=== PATIENT | male | born 1940 | race Caucasian/White ===

== ENCOUNTER → 2017-10-10 14:10 | Outpatient (CLI) | payer MEDICARE, OTHER, SELFPAY ==
--- NOTE | 2017-10-10 | PATH_ITS ---
Note [facility] Accession Number: [id number] TESTS RESULT FLAG UNITS REF RANGE LAB Clinician Provided Cytology Information No. of containers..01 ThinPrep Vial No. of containers..00 Previously Prepared Cytology Slide LEFT INFERIOR THYROI DIAGNOSIS: 02 LEFT INFERIOR THYROI NEGATIVE FOR MALIGNANT CELLS. IBBENIGN FOLLICULAR CELLS PRESENT. Pathologist ICD10: 02 E04.1 02 Satinder Mejia MD, Pathologist NPI- [id number] Jennifer Montgomery, [employer] ([facility]) 01 30 CC, PINK, CLEAR RECEIVED: 5 ALCOHOL FIXED AND 5 QUICK STAINED SLIDES. /VDU FLAG LEGEND: L-Low Normal,H-High Normal,LL-Alert Low,HH-Alert High <-Panic Low,>-Panic High,A-Abnormal,AA-Critical Abnormal Performed at: 01 =Z [facility] [address], [place] [address] Eriberto iNna MD, 02 [facility] [address] [place] [phone] Toby Gaytan MD, A duplicate report has been generated due to demographic updates. Performed at: 01 [facility] [address], [place], [place] [id number] MD Eriberto Nina MD Phone: [phone]
--- NOTE | 2017-10-10 | DI.US.S_ITS ---
PROCEDURE: US FINE NEEDLE ASPIRATION INDICATIONS: LT THYROID NODULE MID TECHNIQUE: The indications, alternatives, benefits, risks, and complications of the procedure were explained to the patient. Written informed consent was obtained and placed in the chart. The thyroid region was examined sonographically and a site was chosen for ultrasound guided percutaneous sampling. The skin was prepared and draped in the usual fashion, and anesthetized with 1% lidocaine infiltrated from the skin down to the thyroid gland. Multiple passes were then performed, with contents emptied into an appropriate pathology specimen container. A bandage was applied to the area of access at completion of the study. COMPARISON: None. FINDINGS: Location(s) of lesion(s) sampled: Nodule 13 mm mid left lobe [place]: 25 gauge hypodermic needles. Number of passes: Multiple, more than 10 counting repeats Medications: 1% lidocaine for local anaesthesia. Complications: None. IMPRESSION: Successful ultrasound-guided thyroid nodule fine needle aspiration, with cytology results pending. Please see chart below for management recommendations based on cytology results. [place] [facility] ReportingRecommendationsNon-diagnostic* Repeat US-guided FNA, with on-site cytology evaluation if possible. * Repeated non-diagnostic nodules without high suspicion US features: close observation vs surgical consult. * Consider surgery if nodule has high suspicion US features, grows >20% in 2 dimensions on followup, or patient has clinical risk factors for malignancy. Benign* If nodule has high suspicion US features: repeat US and FNA within 12 months. * If nodule has low to intermediate suspicion US features: repeat US at 12-24 months. If nodule grows (20% increase in at least 2 dimensions, with minimal increase of 2 mm or >50% change in volume), or development of new suspicious US features, then repeat FNA or continue followup. * If nodule has very low suspicion US features: followup US at >24 months. Atypia of undetermined significance, follicular lesion of undetermined significanceRepeat FNA, molecular testing, followup US, or surgical consult.Follicular neoplasm, suspicious for follicular neoplasmSurgical consult; also consider molecular testing. Suspicious for malignancySurgical consult.MalignantSurgical consult. Dictated by: Paulino Bernardo M.D. on 10/10/2017 at 16:46 Approved by: Paulino Bernardo M.D. on 10/10/2017 at 16:48
--- NOTE | 2017-10-10 | DI.US.S_ITS ---
PROCEDURE: US FINE NEEDLE ASPIRATION INDICATIONS: LEFT THYROID NODULE INFERIOR TECHNIQUE: The indications, alternatives, benefits, risks, and complications of the procedure were explained to the patient. Written informed consent was obtained and placed in the chart. The thyroid region was examined sonographically and a site was chosen for ultrasound guided percutaneous sampling. The skin was prepared and draped in the usual fashion, and anesthetized with 1% lidocaine infiltrated from the skin down to the thyroid gland. Multiple passes were then performed, with contents emptied into an appropriate pathology specimen container. A bandage was applied to the area of access at completion of the study. COMPARISON: None. FINDINGS: Location(s) of lesion(s) sampled: Nodule 13 mm left inferior pole [place]: 25 gauge hypodermic needles. Number of passes: 6 Medications: 1% lidocaine for local anaesthesia. Complications: None. IMPRESSION: Successful ultrasound-guided thyroid nodule fine needle aspiration, with cytology results pending. Please see chart below for management recommendations based on cytology results. [place] System ReportingRecommendationsNon-diagnostic* Repeat US-guided FNA, with on-site cytology evaluation if possible. * Repeated non-diagnostic nodules without high suspicion US features: close observation vs surgical consult. * Consider surgery if nodule has high suspicion US features, grows >20% in 2 dimensions on followup, or patient has clinical risk factors for malignancy. Benign* If nodule has high suspicion US features: repeat US and FNA within 12 months. * If nodule has low to intermediate suspicion US features: repeat US at 12-24 months. If nodule grows (20% increase in at least 2 dimensions, with minimal increase of 2 mm or >50% change in volume), or development of new suspicious US features, then repeat FNA or continue followup. * If nodule has very low suspicion US features: followup US at >24 months. Atypia of undetermined significance, follicular lesion of undetermined significanceRepeat FNA, molecular testing, followup US, or surgical consult.Follicular neoplasm, suspicious for follicular neoplasmSurgical consult; also consider molecular testing. Suspicious for malignancySurgical consult.MalignantSurgical consult. Dictated by: Paulino Bernardo M.D. on 10/10/2017 at 16:48 Approved by: Paulino Bernardo M.D. on 10/10/2017 at 16:48
== END ==
PROVIDERS: Family Provider Internal Medicine Cardiovascular Disease; PCP Internal Medicine; Visit Provider Internal Medicine
DX: E04.1 Nontoxic single thyroid nodule (principal)
CPT/HCPCS: 10022; 76942

== ENCOUNTER → 2017-11-03 09:01 | Outpatient (CLI) | payer MEDICARE, OTHER, SELFPAY ==
[2017-11-03 09:57] LABS: Cholesterol 164 mg/dL (140-199); HDL Cholesterol 65 mg/dL (40-60); LDL Cholesterol Calculated 85 mg/dL (<100); Triglycerides 68 mg/dL (35-150)
== END ==
PROVIDERS: Family Provider Internal Medicine Cardiovascular Disease; PCP Internal Medicine; Visit Provider Internal Medicine Cardiovascular Disease
DX: Z13.220 Encounter for screening for lipoid disorders (principal)
CPT/HCPCS: 36415; 80061

== ENCOUNTER → 2018-01-03 12:22 | Outpatient (CLI) | payer MEDICARE, OTHER, SELFPAY ==
[2018-01-03 12:37] LABS: Bacteria Urine None Seen; RBC Urine None Seen (0-5/HPF)
[2018-01-03 14:10] LABS: Appearance Urine UA CLEAR; Bilirubin Urine UA NEGATIVE (NEGATIVE); Color Urine UA YELLOW; Glucose Urine UA NEGATIVE (Normal); Ketones Urine UA NEGATIVE (NEGATIVE); Leukocyte Esterase Urine UA NEGATIVE (NEGATIVE); Nitrite Urine UA Negative (Negative); Occult Blood Urine UA NEGATIVE (Negative); Protein Urine UA NEGATIVE (Negative); Urobilinogen Urine UA 0.2 E.U./dL (0.2); pH Urine UA 6.5 (4.5-8.0)
[2018-01-03 14:20] LABS: WBC Urine 1-5/HPF (0-5/HPF)
== END ==
PROVIDERS: PCP Internal Medicine; Visit Provider Physician Assistant
DX: N40.1 Benign prostatic hyperplasia with lower urinary tract symptoms (principal)
CPT/HCPCS: 81001

== ENCOUNTER 2019-06-03 00:59 | Emergency (ER) | payer MEDICARE, OTHER, SELFPAY ==
--- NOTE | 2019-06-03 01:07 | ED_ITS ---
HPI - General Adult General Chief complaint: Ear Stated complaint: EAR ACHE Time Seen by Provider: 06/03/19 01:07 Source: patient Mode of arrival: Ambulatory Limitations: no limitations History of Present Illness HPI narrative: 78-year-old male here for evaluation left ear pain. Patient states that it has been going on for about the last 24 to 48 hours. Tried some ibuprofen which earlier today was helping but now it is not. He states that it feels like he needs to pop his ears but is unable to do so. Is on a ohec-lax-qlxoxej oral allergy medication. Has been describing some sinus congestion recently. No fevers. Related Data Home Medications Medication Instructions Recorded Confirmed albuterol sulfate [Ventolin HFA] 1 puff INH #0 04/13/16 05/19/18 budesonide [Pulmicort Flexhaler] 1 puff INH BID #0 04/13/16 05/19/18 cyanocobalamin (vitamin B-12) 500 mcg PO QDAY #0 04/13/16 05/19/18 [Vitamin B-12] fluticasone propionate 1 spray INTRANASAL BID #0 04/13/16 05/19/18 coenzyme Q10 30 mg capsule 30 mg PO DAILY 05/19/18 05/19/18 rosuvastatin PO 05/19/18 05/19/18 vitamins A,C,K-xvow-moeiou 14,320 1 cap PO BID 05/19/18 05/19/18 unit-226 mg-200 unit capsule Allergies Allergy/AdvReac Type Severity Reaction Status Date / Time No Known Allergies Allergy Uncoded 08/31/17 11:46 Review of Systems Constitutional Constitutional: Denies fever(s) ENT Ears, Nose, Mouth, and Throat: Reports sinus pressure and Denies sore throat Comments: Left ear pain Respiratory Respiratory: Denies cough Integumentary/Breasts Skin/Breast: Denies rash Allergic/Immunologic Allergic/Immunologic: Denies urticaria Patient History Medical History (Updated 06/03/19 @ 01:23 by Pino Bonner DO) Acute lymphangitis of right upper extremity (Inactive) Social History Smoking Status: Former smoker Smoking Status: Former smoker (quit 30 years ago) Exam Initial Vital Signs Initial Vital Signs: Vital Signs Temperature 98.0 F 06/03/19 01:10 Pulse Rate 65 06/03/19 01:10 Respiratory Rate 12 06/03/19 01:10 Blood Pressure 116/60 06/03/19 01:10 Pulse Oximetry 97 06/03/19 01:10 Const General: cooperative and comfortable Limitations: mental status not altered HENCO Head: normal to inspection Ears: TM abnormal bulging on the left, dull on the left and with fluid behind the TM on the left; not erythematous Resp Effort & Inspection: normal respiratory effort Skin Lesions: no lesions Rashes: no rashes Neuro General: alert and awake Extrem General: normal to inspection and capillary refill normal Course Orders Ordered: Discontinued Medications Oxymetazoline HCl (Afrin) 2 sprays NASAL NOW ONE Stop: 06/03/19 01:16 Last Admin: 06/03/19 01:18 Dose: 2 sprays Documented by: SCOT Vital Signs Vital signs: Vital Signs - 8 hr 06/03/19 01:10 Temperature 98.0 F Pulse Rate 65 Respiratory Rate 12 Blood Pressure 116/60 Pulse Oximetry 97 Medical Decision Making MDM Narrative Medical decision making narrative: Patient has a bulging non-red left tympanic membrane. Right tympanic membrane unremarkable. He is on an oral allergy medication he was encouraged to continue taking this. No indication for antibiotics. Was given Afrin and instructions on its use. Was given return precautions and follow-up instructions. He expressed understanding and agreem ent plan. Discharge Plan Departure Patient Disposition: Home Clinical Impression: Otitis media Qualifiers: Otitis media type: serous Chronicity: acute Laterality: left Recurrence: not specified as recurrent Qualified Code(s): H65.02 - Acute serous otitis media, left ear Instructions: Antihistamine/Decongestant (By mouth) Activity Restrictions/Additional Instructions: You can use 2-3 sprays of the Afrin nasal spray a that you were given in the emergency department every 12 hours for the next 3 days as needed. Continue with your other allergy medications as directed. Return to the emergency department for any new or worsening symptoms Prescriptions: No Action vitamins A,C,Y-bpfz-nmzycz [PreserVision AREDS] 14,320-226-200 zepn-gu-nape capsule 1 cap PO BID RF: 0 coenzyme Q10 [CoQ-10] 30 mg capsule 30 mg PO DAILY RF: 0 rosuvastatin PO RF: 0 albuterol sulfate [Ventolin HFA] 90 MCG/PUFF HFA aerosol inhaler 1 puff INH Qty: 0 RF: 0 fluticasone propionate 16 GM spray,suspension 1 spray Intranasal BID Qty: 0 RF: 0 budesonide [Pulmicort Flexhaler] 180 MCG aerosol powdr breath activated 1 puff INH BID Qty: 0 RF: 0 cyanocobalamin (vitamin B-12) [Vitamin B-12] 500 MCG tablet 500 mcg PO QDAY Qty: 0 RF: 0 Referrals: Donnell Mascorro MD [Primary Care Provider] -
[2019-06-03 01:10] VITALS: BP 116/60; PULSE 65; RESP 12; TEMP 36.7; O2SAT 97; BMI 20.9
[2019-06-03] MEDS: OXYMETAZOLINE NASAL SPRAY 30 ML 2 SPRAYS NASAL (01:18)
== END 2019-06-03 01:29 | disposition home or self-care (01) ==
PROVIDERS: Emergency Provider Emergency Medicine; PCP Internal Medicine
DX: H65.02 Acute serous otitis media, left ear (principal)
CPT/HCPCS: 99281; 99282

== ENCOUNTER → 2020-03-14 21:19 | Outpatient (ROUT) | payer MEDICARE, OTHER, SELFPAY ==
[2020-03-14 22:36] LABS: Aspartate Aminotransferase 33 IU/L (17-59); BUN Creatinine Ratio 20.7 (6-22); Blood Urea Nitrogen 18 mg/dL (9-20); Calcium 9.4 mg/dL (8.4-10.2); Carbon Dioxide 30 mmol/L (22-32); Chloride 101 mmol/L (98-107); Cholesterol 195 mg/dL (140-199); Estimated Glomerular Filt Rate > 60.0 mL/min (>60); Glucose 92 mg/dL (80-110); HDL Cholesterol 72 mg/dL (40-60); HEMOLYSIS < 15 (0-50); LDL Cholesterol Calculated 111 mg/dL (<100); Potassium 3.9 mmol/L (3.4-5.1); Sodium 136 mmol/L (137-145); Triglycerides 58 mg/dL (35-150)
== END ==
PROVIDERS: PCP Internal Medicine; Visit Provider Internal Medicine
DX: E78.2 Mixed hyperlipidemia (principal); N40.0 Benign prostatic hyperplasia without lower urinary tract symptoms
CPT/HCPCS: 80048; 80061; 84450

== ENCOUNTER 2021-01-16 17:30 | Emergency (ER) | payer MEDICARE, OTHER, SELFPAY ==
[2021-01-16 18:11] VITALS: BP 145/75; PULSE 65; RESP 16; TEMP 36.6; O2SAT 97; BMI 20.9
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
[2021-01-16] MEDS: TET,DIPH,PERTUSS(ACELL),VAC/PF 0.5 ML SYRINGE IM (20:07)
[2021-01-16 20:23] VITALS: BP 120/70; PULSE 64; RESP 18; O2SAT 98
--- NOTE | 2021-01-16 20:24 | PC.NURSE ---
telfa and kerlix dressing applied to right hand lac site well approximated with steri strips
== END 2021-01-16 20:30 | disposition home or self-care (01) ==
PROVIDERS: Emergency Provider Physician Assistant; PCP Internal Medicine
DX: S61.411A Laceration without foreign body of right hand, initial encounter (principal); W26.8XXA Contact with other sharp object(s), not elsewhere classified, initial encounter; Z23 Encounter for immunization
CPT/HCPCS: 90471; 99283; 90715

== ENCOUNTER 2021-02-27 11:03 | Emergency (ER) | payer MEDICARE, OTHER, SELFPAY ==
[2021-02-27 11:27] VITALS: BP 147/71; PULSE 70; RESP 14; TEMP 36.7; O2SAT 99; BMI 21.7
--- NOTE | 2021-02-27 11:34 | DI.RAD.S_ITS ---
PROCEDURE: XR CHEST 1V INDICATIONS: Chest pain TECHNIQUE: One view of the chest was acquired. COMPARISON: None. FINDINGS: Surgical changes and devices: None. Lungs and pleura: Lungs are clear. No pleural effusions or pneumothorax. Mediastinum: Mediastinal contours appear normal. Heart size is normal. Bones and chest wall: No suspicious bony lesions. Overlying soft tissues appear unremarkable. IMPRESSION: No acute cardiopulmonary process demonstrated radiographically. Dictated by: Satish Lau M.D. on 02/27/2021 at 12:32 Approved by: Satish Lau M.D. on 02/27/2021 at 12:34
--- NOTE | 2021-02-27 11:40 | DI.CT.S_ITS ---
PROCEDURE: CT HEAD/BRAIN WO CON INDICATIONS: syncope, currently neuro intact. TECHNIQUE: Noncontrast 4.5 mm thick angled axial sections acquired from the foramen magnum to the vertex, with coronal and sagittal reformats. For radiation dose reduction, the following was used: automated exposure control, adjustment of mA and/or kV according to patient size. COMPARISON: [facility], CT, HEAD WITHOUT CONTRAST, 07/23/2017, 5:22. FINDINGS: Image quality: Excellent. CSF spaces: Basal cisterns are patent. No extra-axial fluid collections. The ventricles are symmetric in size and shape. Brain: No intracranial hemorrhage or masses. Cerebral volume loss for age, with resultant ventricular and sulcal prominence. There are periventricular and deep white matter chronic small vessel ischemic changes. There is intracranial internal carotid artery atherosclerosis. Skull and face: Calvarium and visualized facial bones appear intact, without suspicious lesions. Sinuses: Air-fluid level in the left frontal and maxillary sinuses. Near-complete opacification of the ethmoid air cells. Deficiency of the medial maxillary sinus wall, likely reflecting prior sinus surgery. IMPRESSION: No acute intracranial abnormality. Dictated by: Gerald Hadley M.D. on 02/27/2021 at 12:20 Approved by: Gerald Hadley M.D. on 02/27/2021 at 12:23
[2021-02-27 12:02] LABS: Add Manual Diff / Slide Review NO; Basophils Absolute Auto 0 /uL (0-100); Basophils Percent Auto 0.5 % (0-2); Eosinophils Absolute Auto 100 /uL (0-450); Eosinophils Percent Auto 1.6 % (2-4); Hematocrit 41.3 % (41-53); Hemoglobin 13.7 g/dL (13.5-17.5); Lymphocytes Absolute Auto 700 /uL (1100-4500); Lymphocytes Percent Auto 9.7 % (25-40); Mean Corpuscular HGB Conc 33.1 % (30-36); Mean Corpuscular Hemoglobin 30.2 PG (26-34); Mean Corpuscular Volume 91.3 fL (80-100); Monocytes Absolute Auto 900 /uL (0-900); Monocytes Percent Auto 11.7 % (3-14); Neutrophils Absolute Auto 5800 /uL (1500-7000); Neutrophils Percent Auto 76.5 % (50-75); Platelet Count 281 X10^3/uL (150-400); Red Blood Cell Count 4.53 X10^6/uL (4.5-5.9); Red Cell Distribution Width 13.8 % (11.6-14.8); White Blood Cell Count 7.5 X10^3/uL (4.5-11.0)
[2021-02-27 12:16] LABS: Alanine Aminotransferase 28 IU/L (<50); Albumin 4.3 g/dL (3.5-5.0); Albumin Globulin Ratio 1.6 (1.0-2.8); Alkaline Phosphatase 80 U/L (38-126); Aspartate Aminotransferase 30 IU/L (17-59); Blood Urea Nitrogen 15 mg/dL (9-20); Calcium 9.9 mg/dL (8.4-10.2); Carbon Dioxide 28 mmol/L (22-32); Chloride 104 mmol/L (98-107); Creatine Kinase 214 U/L (55-170); Estimated Glomerular Filt Rate > 60.0 mL/min (>60); Globulin 2.7 g/dL (1.7-4.1); Glucose 109 mg/dL (80-110); HEMOLYSIS < 15 (0-50); Lipase 67 U/L (23-300); Magnesium 2.1 mg/dL (1.6-2.3); Potassium 4.1 mmol/L (3.4-5.1); Sodium 137 mmol/L (137-145)
[2021-02-27 12:27] LABS: Troponin I < 0.012 ng/mL (0.01-0.034)
[2021-02-27 12:31] LABS: CKMB % Relative Index 1.3 % (1.5-5.0); Creatine Kinase MB 2.69 ng/mL (<2.37)
--- NOTE | 2021-02-27 12:38 | ED.SYNCOPE ---
HPI - Syncope General Chief Complaint: Syncope Stated Complaint: faceplant this morning Time Seen by Provider: 02/27/21 12:30 Source: patient Mode of arrival: Ambulatory Limitations: no limitations History of Present Illness HPI narrative: This is an 80-year-old male who comes emergency department after having a fall and loss of consciousness. Patient's fall was witnessed. He was walking with a friend that he walks with regularly at the loop in [facility]. Patient states it felt like his feet he just can not keep up with them they would go faster and faster. He does have a history of neuropathy he has occasionally had issues like this but not persistently. Patient does not recall falling. He did recall feeling unwell her earlier today. He states he was told that he discussed going faster could keep up with his feet and fell down onto his hands and knees and striking his face with his glasses on. Patient is unsure if he had a loss of consciousness but he does not recall the fall. He has a gap of time possibly 15-30 minutes where he does not recall his friend assisting him up, taking him home are helping him get in the front door. The patient was able to find keep the keep it in the garden and access the house. His met him at home immediately thereafter and she states he did not seem confused at that time but did recall events and has otherwise seemed himself. She states that he ambulated at home I did not notice any new weakness or other changes. Patient denies headache. He does note that 1 of his crowns popped off and he has some abrasions. He had some bleeding from the left side of his nose. He has abrasions on both palms of his hands and knees. He denies headache, chest pain or shortness of breath. He denies any neck or back pain. No new numbness, tingling or weakness. He does state he has chronic neuropathy in his lower feet which is unchanged. Patient denies any urinary bowel or bladder incontinence. He has not had any if issues with speech. He takes a multivitamin, allergy pill he uses budesonide intranasally as well as Pulmicort inhaler. He is not on any anticoagulation or thinners. He has had 1 prior episode of syncope after being on a BPH medication which was stopped. He has had a TURP several years ago and spinal surgery in the . He quit using cigars in the . Drinks 1-3 alcoholic drinks daily. No illicit. No known allergies to medications. Patient lives independently with his at home. He does not usually use a walker or cane. Related Data Home Medications Medication Instructions Recorded Confirmed albuterol sulfate 90 mcg/actuation 1 puff INH #0 04/13/16 05/19/18 aerosol inhaler (Ventolin HFA) budesonide 180 mcg/actuation 1 puff INH BID #0 04/13/16 05/19/18 breath activated powder inhaler (Pulmicort Flexhaler) cyanocobalamin (vitamin B-12) 500 500 mcg PO QDAY #0 04/13/16 05/19/18 mcg tablet (Vitamin B-12) fluticasone propionate 50 1 spray INTRANASAL BID #0 04/13/16 05/19/18 mcg/actuation nasal spray,suspension coenzyme Q10 30 mg capsule (CoQ-10) 30 mg PO DAILY 05/19/18 05/19/18 rosuvastatin [Crestor] PO 05/19/18 05/19/18 vitamins A,C,Q-xxlh-cwvxqy 14,320 1 cap PO BID 05/19/18 05/19/18 unit-226 mg-200 unit capsule (PreserVision AREDS) Allergies Allergy/AdvReac Type Severity Reaction Status Date / Time No Known Allergies Allergy Uncoded 08/31/17 11:46 Review of Systems Review of Systems ROS Unobtainable: All systems reviewed & are unremarkable except as noted in HPI and below Patient History Medical History Acute lymphangitis of right upper extremity Social History Smoking Status: Former smoker Smoking Status: Former smoker alcohol intake frequency: 0-2 drinks per day Alcohol type: hard liquor Substance Use Type: does not use Exam Narrative Exam Narrative: GEN: Patient appears in mild distress. HEAD: No evidence of trauma, no raccoon/Mcdonald sign. NECK: Nontender, painless range of motion, trachea midline Negative Nexus criteria, there is no line tenderness, distracting injury, altered mental status, neuro deficit, recent EtOH. EYES: PERRLA, EOMI ENT: Patient has some dried blood at the left Seym[place], he has an abrasion of the left upper lip as well as abrasion on the inner lip but without gap inch, patient's tooth #__ crown is missing but the base tooth is intact, TM's are normal no hemotypanum, Nares right seymour is clear, nose is midline, no septal hematoma, no dental or oral injury, airway is normal and with normal occlusion, No bony tenderness RESP: Chest is nontender and has symmetric movement, no ecchymosis, breath sounds are normal no crackles, wheezes or rales CVS: Heart sounds are normal, no murmur noted, No JVD. ABG/GI: Nontender, soft, normal bowel sounds, no distention, no organomegaly, pelvic rock is negative NEURO: Oriented AOx3, neuro is grossly intact, sensation and motor is normal all 4 extremities moving, cranial nerves II through XII are intact, GCS is 15 PSYCH: Normal mood and affect SKIN: Patient has abrasions bilateral knees and palms of the hands. The right hand particularly has a larger stellate skin flap that is 1cm in size, otherwise skin is dry, no crepitus and without decubitus BACK: No CVA tenderness, no vertebral tenderness, no step-off's, no crepitus EXT: Atraumatic other than above, hips are nontender, no pedal edema, normal color and temperature, normal range of motion of extremities with normal tendon exam, 2+ pulses in all four extremities Initial Vital Signs Initial Vital Signs: Vital Signs Temperature 98.0 F 02/27/21 11:27 Pulse Rate 70 02/27/21 11:27 Respiratory Rate 14 02/27/21 11:27 Blood Pressure 147/71 H 02/27/21 11:27 Pulse Oximetry 99 02/27/21 11:27 Scores GCS Kamille coma scale eye opening: Spontaneous [place] coma scale verbal response: Orientated [place] coma scale motor response: Obey commands [place] coma scale total score: 15 Course Orders Ordered: ED Orders 02/27/21 11:34 XR chest 1V Stat EKG-12 Lead Stat 02/27/21 11:40 CT head/brain wo con Stat 02/27/21 11:50 Complete Blood Count AUTO DIFF Stat Comprehensive Metabolic Panel Stat Lipase Stat Magnesium Stat Troponin & CK Cardiac Panel Stat Vital Signs Vital signs: Vital Signs - 8 hr 02/27/21 12:54 02/27/21 13:00 02/27/21 13:18 Pulse Rate 72 77 Respiratory Rate 22 22 Blood Pressure 140/69 Pulse Oximetry 97 97 99 MDM - Syncope Lab Data Result diagrams: 02/27/21 11:50 02/27/21 11:50 Labs: Lab Results 02/27/21 02/27/21 Range/Units 11:50 11:50 WBC 7.5 (4.5-11.0) X10^3/uL RBC 4.53 (4.5-5.9) X10^6/uL Hgb 13.7 (13.5-17.5) g/dL Hct 41.3 (41-53) % MCV 91.3 (80-100) fL MCH 30.2 (26-34) PG MCHC 33.1 (30-36) % RDW 13.8 (11.6-14.8) % Plt Count 281 (150-400) X10^3/uL Neut % (Auto) 76.5 H (50-75) % Lymph % (Auto) 9.7 L (25-40) % [place] % (Auto) 11.7 (3-14) % Eos % (Auto) 1.6 L (2-4) % Baso % (Auto) 0.5 (0-2) % Neut # (Auto) 5800 (3067-7769) /uL Lymph # (Auto) 700 L (2966-6813) /uL [place] # (Auto) 900 (0-900) /uL Eos # (Auto) 100 (0-450) /uL Baso # (Auto) 0 (0-100) /uL Sodium 137 (137-145) mmol/L Potassium 4.1 (3.4-5.1) mmol/L Chloride 104 (98-107) mmol/L Carbon Dioxide 28 (22-32) mmol/L BUN 15 (9-20) mg/dL Creatinine 0.94 (0.66-1.25) mg/dL Estimated GFR > 60.0 (>60) mL/min BUN/Creatinine Ratio 16.0 (6-22) Glucose 109 (80-110) mg/dL Calcium 9.9 (8.4-10.2) mg/dL Magnesium 2.1 (1.6-2.3) mg/dL Total Bilirubin 1.0 (0.2-1.3) mg/dL AST 30 (17-59) IU/L ALT 28 (<50) IU/L Alkaline Phosphatase 80 (38-126) U/L Total Creatine Kinase 214 H (55-170) U/L CK-MB (CK-2) 2.69 H (<2.37) ng/mL CK-MB (CK-2) Rel Index 1.3 L (1.5-5.0) % Troponin I < 0.012 (0.01-0.034) ng/mL Total Protein 7.0 (6.3-8.2) g/dL Albumin 4.3 (3.5-5.0) g/dL Globulin 2.7 (1.7-4.1) g/dL Albumin/Globulin Ratio 1.6 (1.0-2.8) Lipase 67 (23-300) U/L Imaging Data CT scan - head: Radiologist's Impression: [address] [address] [address] Scan Report Signed Patient: Rubén Denis MR#: [id number] : 1940 Acct:[id number] Age/Sex: 80 / M Date of Service: 02/27/21 Loc: ED Accession Number: [id number] ?? Procedure: CT head/brain wo con Ordering Provider: Mandy Archer D.O. PROCEDURE:? CT HEAD/BRAIN WO CON ? INDICATIONS:? syncope, currently neuro intact. ? TECHNIQUE:? Noncontrast 4.5 mm thick angled axial sections acquired from the foramen magnum to the vertex, with coronal and sagittal reformats.? For radiation dose reduction, the following was used:? automated exposure control, adjustment of mA and/or kV according to patient size.? ? COMPARISON:? [facility], CT, HEAD WITHOUT CONTRAST, 07/23/2017, 5:22. ? FINDINGS:? Image quality:? Excellent.? ? CSF spaces:? Basal cisterns are patent.? No extra-axial fluid collections.? The ventricles are symmetric in size and shape.? ? Brain:? No intracranial hemorrhage or masses.? Cerebral volume loss for age, with resultant ventricular and sulcal prominence.? There are periventricular and deep white matter chronic small vessel ischemic changes.? There is intracranial internal carotid artery atherosclerosis.? ? Skull and face:? Calvarium and visualized facial bones appear intact, without suspicious lesions.? ? Sinuses:? Air-fluid level in the left frontal and maxillary sinuses.? Near-complete opacification of the ethmoid air cells.? Deficiency of the medial maxillary sinus wall, likely reflecting prior sinus surgery. ? IMPRESSION:? No acute intracranial abnormality. ? ? Dictated by: Geradl Hadley M.D. on 02/27/2021 at 12:20 ? ? Approved by: Gerald Hadley M.D. on 02/27/2021 at 12:23? Chest x-ray: Radiologist's Impression: [address] [address] XRay Report Signed Patient: Rubén Denis MR#: [id number] : 1940 Acct:[id number] Age/Sex: 80 / M Date of Service: 02/27/21 Loc: ED Accession Number: [id number] ?? Procedure: XR chest 1V Ordering Provider: Mandy Archer D.O. PROCEDURE:? XR CHEST 1V ? INDICATIONS:? Chest pain ? TECHNIQUE:? One view of the chest was acquired.? ? COMPARISON:? None. ? FINDINGS:? ? Surgical changes and devices:? None.? ? Lungs and pleura:? Lungs are clear.? No pleural effusions or pneumothorax.? ? Mediastinum:? Mediastinal contours appear normal.? Heart size is normal.? ? Bones and chest wall:? No suspicious bony lesions.? Overlying soft tissues appear unremarkable.? ? IMPRESSION:? No acute cardiopulmonary process demonstrated radiographically. ? ? Dictated by: Satish Lau M.D. on 02/27/2021 at 12:32 ? ? Approved by: Satish Lau M.D. on 02/27/2021 at 12:34?? ECG Data Attestation: I personally reviewed and interpreted this ECG as follows: Prior ECG tracings: available for review Interpretation: Sinus rhythm rate 82 ID 180 QRS of 102 and QTC 436. No acute ST changes appreciated. Patient has prior EKG from 07/23/2017 which does not show any acute changes. MDM Narrative Medical decision making narrative: This is an 80-year-old male with suspected concussion after a fall that was witnessed. There was no described syncope, or changes that are obvious with cardiac arrhythmia or other cause. Patient's labs are otherwise reassuring. Head CT is negative, patient is several hours out from his initial injury with improved and normalized mentation. He did have a window or loss of times and did not recall episode but his states he was normal and at his baseline home with her he does not appear to have any cardiac arrhythmias or abnormalities, patient does have some minor facial injuries but no bony tenderness that would warrant CT facial bones. Return precautions were discussed. Discharge Plan Departure Patient Disposition: Home Clinical Impression: Abrasion of both knees Concussion Qualifiers: Encounter type: initial encounter Loss of consciousness presence/duration: with LOC of 30 min or less Qualified Code(s): S06.0X1A - Concussion with loss of consciousness of 30 minutes or less, initial encounter Dental injury Qualifiers: Encounter type: initial encounter Qualified Code(s): S09.93XA - Unspecified injury of face, initial encounter Abrasion of face Qualifiers: Encounter type: initial encounter Qualified Code(s): S00.81XA - Abrasion of other part of head, initial encounter Abrasion of palm Qualifiers: Encounter type: initial encounter Laterality: unspecified laterality Qualified Code(s): S60.519A - Abrasion of unspecified hand, initial encounter Instructions: DI for Concussion Activity Restrictions/Additional Instructions: You appear to have a concussion today from your fall. I would discuss with your physician about PT and if you continue to have similar episodes while walking possibly evaluation by neurology for your neuropathy and gait changes. You may continue home medications as prescribed. You may take Tylenol up to a 1000 mg every 8 hours as needed for pain. For your tooth that is missing should be followed up with a dentist. If you have dental insurance contact the number on your card to find a local provider. Wound Care: Keep wound(s) clean and dry. Wash daily with soap and water only. Do not use over the counter products (alcohol or peroxide)on the wounds unless instructed by a physician. You can use triple antibiotic ointment to the affected areas twice daily. Return if fever greater than 100.4 Fahrenheit, increased swelling, increasing pain or worsening symptoms such as increased discharge or spreading redness. Please return for new headaches, altered mental status, new or different confusion, new neck or back pain, recurrent syncope, falling or passing out, persistent vomiting, new numbness, tingling or weakness, difficulty with ambulation or movement of her extremities, loss of bowel or bladder control or other new or concerning symptoms. Prescriptions: No Action vitamins A,C,V-nyyb-lmdbnj [PreserVision AREDS] 14,320-226-200 tvyb-rq-lkkv capsule 1 cap PO BID RF: 0 coenzyme Q10 [CoQ-10] 30 mg capsule 30 mg PO DAILY RF: 0 rosuvastatin PO RF: 0 albuterol sulfate [Ventolin HFA] 90 MCG/PUFF HFA aerosol inhaler 1 puff INH Qty: 0 RF: 0 fluticasone propionate 16 GM spray,suspension 1 spray Intranasal BID Qty: 0 RF: 0 budesonide [Pulmicort Flexhaler] 180 MCG aerosol powdr breath activated 1 puff INH BID Qty: 0 RF: 0 cyanocobalamin (vitamin B-12) [Vitamin B-12] 500 MCG tablet 500 mcg PO QDAY Qty: 0 RF: 0 Referrals: Donnell Mascorro MD [Primary Care Provider] -
--- NOTE | 2021-02-27 12:48 | PC.NURSE ---
Pt reports out walking at [employer] and legs feeling like they were heavy. I tried to move them faster and then fell forward. Denies dizziness/nausea. Had post fall confusion. Hit face, hands and knees. Knocked out a tooth as well. Friends brought pt home and then brought pt to ED. Abrasion to left palm/hand. Deeper abrasion on right palm. Lip/chin abrasions. Bilateral knee abrasions, cleaned/LASHANDA.
[2021-02-27 12:54] VITALS: PULSE 72; RESP 22; O2SAT 97
[2021-02-27 13:00] VITALS: PULSE 77; RESP 22; O2SAT 97
[2021-02-27 13:18] VITALS: BP 140/69; O2SAT 99
== END 2021-02-27 13:46 | disposition home or self-care (01) ==
PROVIDERS: Emergency Provider Emergency Medicine; PCP Internal Medicine
DX: S06.0X1A Concussion with loss of consciousness of 30 minutes or less, initial encounter (principal); S09.93XA Unspecified injury of face, initial encounter; S00.81XA Abrasion of other part of head, initial encounter; S80.212A Abrasion, left knee, initial encounter; S80.211A Abrasion, right knee, initial encounter; S60.512A Abrasion of left hand, initial encounter; S60.511A Abrasion of right hand, initial encounter; R07.9 Chest pain, unspecified; W19.XXXA Unspecified fall, initial encounter
CPT/HCPCS: 36415; 70450; 71045; 80053; 82550; 82553; 83690; 83735; 84484; 85025; 93005; 99284

== ENCOUNTER 2021-05-13 12:34 | Inpatient (IN) | payer MEDICARE, OTHER, SELFPAY ==
[2021-05-13] VITALS (17 sets, daily range): BP systolic 108–143; BP diastolic 54–90; PULSE 57–102; RESP 11–18; TEMP 36.4–37; O2SAT 93–100; BMI 20.6
--- NOTE | 2021-05-13 13:32 | DI.RAD.S_ITS ---
PROCEDURE: XR ABDOMEN 1V INDICATIONS: abd pain w/ ? constipation w/ diarrhea TECHNIQUE: One view of the abdomen acquired. COMPARISON: None. FINDINGS: Surgical changes and devices: None. Bowel: Moderately to severely distended loop of large bowel within the left upper quadrant which demonstrates an air-fluid level. Soft tissues: No suspicious abdominal calcifications. Visualized solid organ contours appear normal in size. Bones: No suspicious bony lesions. IMPRESSION: Findings suggestive of high-grade colonic obstruction. This could be further assessed with IV and rectal contrast-enhanced CT examination, if clinically indicated. Dictated by: Nasreen Del Rosario M.D. on 05/13/2021 at 14:24 Approved by: Nasreen Del Rosario M.D. on 05/13/2021 at 14:26
[2021-05-13 13:49] LABS: Add Manual Diff / Slide Review NO; Basophils Absolute Auto 0 /uL (0-100); Basophils Percent Auto 0.6 % (0-2); Eosinophils Absolute Auto 100 /uL (0-450); Eosinophils Percent Auto 2.3 % (2-4); Hematocrit 42.7 % (41-53); Hemoglobin 14.4 g/dL (13.5-17.5); Lymphocytes Absolute Auto 900 /uL (1100-4500); Lymphocytes Percent Auto 16.6 % (25-40); Mean Corpuscular HGB Conc 33.8 % (30-36); Mean Corpuscular Hemoglobin 30.4 PG (26-34); Monocytes Absolute Auto 600 /uL (0-900); Monocytes Percent Auto 11.8 % (3-14); Neutrophils Absolute Auto 3700 /uL (1500-7000); Neutrophils Percent Auto 68.7 % (50-75); Platelet Count 284 X10^3/uL (150-400); Red Blood Cell Count 4.75 X10^6/uL (4.5-5.9); Red Cell Distribution Width 14.7 % (11.6-14.8); White Blood Cell Count 5.4 X10^3/uL (4.5-11.0)
--- NOTE | 2021-05-13 13:49 | ED.ABDPAIN ---
HPI - Abdominal Pain <Nolberto Rivas PA-C - Last Filed: 05/14/21 14:46> General Chief Complaint: Abdominal Pain Stated Complaint: Gas distention/nausea/vomiting/no bm since yest. Time Seen by Provider: 05/13/21 13:32 Source: patient Mode of arrival: Ambulatory History of Present Illness HPI narrative: Patient is an 80-year-old male presenting to the emergency department today for evaluation of abdominal pain that began yesterday. Patient reports associated episodes of bloating, nausea, and constipation. Patient explains that he had experienced similar episodes approximately 1 month ago that cleared on their own. He notes that he has a sensation that he needs to pass a bowel movement, but he states he has been unable to and has only been able to pass ?a brown liquid?. Patient states that took Ex-Lax yesterday evening and at midnight last night but has not yet had a bowel movement. He denies fever, chills, chest pain, cough, shortness of breath, dysuria, hematuria, black or tarry stools, hematemesis, or any other concerning symptoms. No other concerns for voiced at this time. Related Data Home Medications Medication Instructions Recorded Confirmed budesonide 180 mcg/actuation 1 puff INH BID #0 04/13/16 05/13/21 breath activated powder inhaler (Pulmicort Flexhaler) cyanocobalamin (vitamin B-12) 500 500 mcg PO QAM #0 04/13/16 05/13/21 mcg tablet (Vitamin B-12) fluticasone propionate 50 1 spray INTRANASAL QAM #0 04/13/16 05/13/21 mcg/actuation nasal spray,suspension coenzyme Q10 30 mg capsule (CoQ-10) 30 mg PO 3XW 05/19/18 05/13/21 vitamins A,C,I-yrlj-opoqws 14,320 1 cap PO BID 05/19/18 05/13/21 unit-226 mg-200 unit capsule (PreserVision AREDS) [id number] 250 1 tab PO BID 05/13/21 05/13/21 mg-40 mg-5 mg-125 unit tablet Allergies Allergy/AdvReac Type Severity Reaction Status Date / Time No Known Drug Allergies Allergy Verified 05/13/21 13:44 Review of Systems <Nolberto Rivas PA-C - Last Filed: 05/14/21 14:46> Constitutional Constitutional: Denies chills, Denies fatigue, Denies fever(s), Denies frequent falls, Denies lethargy and Denies weakness Eyes Eyes: Denies loss of vision ENT Ears, Nose, Mouth, and Throat: Denies dizziness and Denies neck pain Cardiovascular Cardiovascular: Denies chest pain, Denies irregular heart rhythm, Denies lightheadedness, Denies palpitations, Denies dyspnea, Denies dyspnea on exertion and Denies orthopnea Respiratory Respiratory: Denies cough, Denies dyspnea, Denies dyspnea on exertion and Denies wheezing Gastrointestinal Gastrointestinal: Reports abdominal pain (Right lower quadrant, left lower quadrant), Denies melena, Reports bloating, Denies hematochezia, Denies coffee ground emesis, Reports constipation, Reports diarrhea, Reports nausea, Denies vomiting and Denies hematemesis Genitourinary Genitourinary: Denies hematuria, Denies flank pain, Denies urinary incontinence and Denies urinary urgency Musculoskeletal Musculoskeletal: Denies back pain, Denies muscle weakness, Denies neck pain, Denies numbness and Denies tingling Integumentary/Breasts Skin/Breast: Denies pruritus, Denies erythema, Denies rash and Denies wounds Neurologic Neurologic: Denies behavioral changes, Denies confusion, Denies dizziness, Denies frequent falls, Denies loss of vision, Denies numbness, Denies tingling and Denies weakness Psychiatric Psychiatric: Denies behavioral changes and Denies confusion Endocrine Endocrine: Denies fatigue and Denies palpitations Allergic/Immunologic Allergic/Immunologic: Denies wheezing Patient History <Nolberto Rivas PA-C - Last Filed: 05/14/21 14:46> Medical History Acute lymphangitis of right upper extremity Social History household members: spouse Smoking Status: Former smoker Smoking Status: Former smoker alcohol intake frequency: 0-2 drinks per day Alcohol type: hard liquor Substance Use Type: does not use Exam <Nolberto Rivas PA-C - Last Filed: 05/14/21 14:46> Narrative Exam Narrative: GENERAL: 80 year old patient appears stated age. Well-developed patient, in no acute distress. HEAD: Atraumatic. Normocephalic. EYES: Pupils equal round and reactive. Extraocular motions intact. No scleral icterus. No injection or drainage. ENT: Nose without bleeding, purulent drainage. Throat without erythema, tonsillar hypertrophy or exudate. Airway patent. NECK: Trachea midline. Non tender CARDIOVASCULAR: Regular rate and rhythm without murmurs, gallops, or rubs. RESPIRATORY: Clear to auscultation. Breath sounds equal bilaterally. No wheezes, rales, or rhonchi. GASTROINTESTINAL: Abdomen soft, non-tender. Abdomen appears bloated and distended. No masses appreciated. EXTREMITIES: No edema or joint tenderness. BACK: Nontender without deformity or crepitance. No flank tenderness. NEURO: AOx3. SKIN: No rash or erythema of visible areas Initial Vital Signs Initial Vital Signs: Vital Signs Temperature 98.4 F 05/13/21 13:25 Pulse Rate 78 05/13/21 13:25 Respiratory Rate 18 05/13/21 13:25 Blood Pressure 143/90 H 05/13/21 13:25 Pulse Oximetry 97 05/13/21 13:25 <Amber Pfeiffer MD - Last Filed: 05/20/21 07:32> Initial Vital Signs Initial Vital Signs: Vital Signs Temperature 98.4 F 05/13/21 13:25 Pulse Rate 78 05/13/21 13:25 Respiratory Rate 18 05/13/21 13:25 Blood Pressure 143/90 H 05/13/21 13:25 Pulse Oximetry 97 05/13/21 13:25 Course <Nolberto Rivas PA-C - Last Filed: 05/14/21 14:46> Course Course Narrative: CBC, CMP, lipase, EKG, abdominal x-ray ordered. Orders Ordered: Acetaminophen (Acetaminophen 325 Mg Tablet) 650 mg PO Q4HR PRN PRN Reason: Fever/Mild Pain (1-3) Last Admin: 05/16/21 08:56 Dose: 650 mg Documented by: Admin: 05/16/21 01:20 Dose: 650 mg Documented by: Admin: 05/15/21 13:45 Dose: 650 mg Documented by: Admin: 05/15/21 05:46 Dose: 650 mg Documented by: MWEXMAN Al Hydrox/Mg Hydrox/Simethicone (Mag Hydrox/Alum/Simeth 30 Ml Udc) 30 ml PO Q6HR PRN PRN Reason: Dyspepsia Last Admin: 05/19/21 00:05 Dose: 30 ml Documented by: KALYN Albuterol (Albuterol 2.5 Mg/3 Ml Neb (Adult)) 2.5 mg INH [id number] PRN PRN Reason: Shortness Of Breath Last Admin: 05/13/21 20:05 Dose: 2.5 mg Documented by: RADHA Benzocaine/Butamben/Tetracaine HCl (Tetracaine/Benzocaine/Butamben (Cetacaine) Bottle) 1 spray TOP PRN PRN PRN Reason: Sore Throat Last Admin: 05/17/21 11:32 Dose: 1 spray Documented by: WAN Budesonide (Budesonide 0.5 Mg/2 Ml Neb) 0.5 mg INH RTBID PRINCE Last Admin: 05/19/21 20:50 Dose: Not Given Documented by: Admin: 05/19/21 07:40 Dose: 0.5 mg Documented by: Admin: 05/18/21 20:16 Dose: Not Given Documented by: Admin: 05/18/21 06:53 Dose: 0.5 mg Documented by: Admin: 05/17/21 18:54 Dose: 0.5 mg Documented by: Admin: 05/17/21 07:33 Dose: Not Given Documented by: Admin: 05/16/21 19:41 Dose: Not Given Documented by: Admin: 05/16/21 07:54 Dose: 0.5 mg Documented by: Admin: 05/15/21 21:00 Dose: 0.5 mg Documented by: Admin: 05/15/21 08:00 Dose: Not Given Documented by: Admin: 05/14/21 20:00 Dose: Not Given Documented by: Admin: 05/14/21 09:00 Dose: Not Given Documented by: Admin: 05/13/21 20:05 Dose: Not Given Documented by: RADHA Enoxaparin Sodium (Enoxaparin 40 Mg/0.4 Ml Syringe) 40 mg SUBCUT DAILY [facility] Last Admin: 05/19/21 08:43 Dose: 40 mg Documented by: MAINE Heparin Sodium (Porcine) (Heparin Flush (Cl/Picc/Mid-Line) 50 Unit/5 Ml Syringe) 50 unit IV BID [facility] Last Admin: 05/19/21 20:49 Dose: 50 unit Documented by: Admin: 05/19/21 08:41 Dose: Not Given Documented by: Admin: 05/18/21 21:23 Dose: Not Given Documented by: Admin: 05/18/21 18:26 Dose: Not Given Documented by: RICKY Hydromorphone HCl (Hydromorphone 0.5 Mg Inj) 0.5 mg IV Q6H PRN PRN Reason: Pain, Moderate (4-6) Last Admin: 05/15/21 15:56 Dose: 0.5 mg Documented by: Admin: 05/15/21 03:27 Dose: 0.5 mg Documented by: Admin: 05/14/21 17:28 Dose: 0.5 mg Documented by: DEONDRE Multivitamins 10 ml/ Chromium/Copper/Manganese/Seleni/Zn 1 ml/ Potassium Phosphate 15 mmol/ Amino Acids/Electrolytes 2,016 mls @ 62 mls/hr IV CONT [facility] Stop: 05/21/21 17:59 Last Admin: 05/19/21 18:54 Dose: 62 mls/hr Documented by: MAINE Naloxone HCl (Naloxone 0.4 Mg/Ml Vial) 0.2 mg IV Q2MIN PRN PRN Reason: Opiate Reversal Ondansetron HCl (Ondansetron 4 Mg/2 Ml Inj) 4 mg IV Q8HR PRN PRN Reason: Nausea And Vomiting Last Admin: 05/19/21 00:08 Dose: 4 mg Documented by: Admin: 05/18/21 12:06 Dose: 4 mg Documented by: Admin: 05/17/21 19:08 Dose: 4 mg Documented by: Admin: 05/16/21 23:53 Dose: 4 mg Documented by: Admin: 05/16/21 06:27 Dose: 4 mg Documented by: ARISTEO Oxycodone HCl (Oxycodone Ir 5 Mg Tablet) 5 mg PO Q4HR PRN PRN Reason: Pain, Moderate (4-6) Last Admin: 05/15/21 21:22 Dose: 5 mg Documented by: Admin: 05/15/21 13:45 Dose: 5 mg Documented by: Admin: 05/15/21 05:46 Dose: 5 mg Documented by: EVERTON Simethicone (Simethicone 80 Mg Tablet) 80 mg PO QID PRN PRN Reason: Flatulence Last Admin: 05/18/21 13:00 Dose: 80 mg Documented by: Admin: 05/16/21 22:41 Dose: 80 mg Documented by: Admin: 05/16/21 15:24 Dose: 80 mg Documented by: WAN Sodium Chloride (Sodium Chloride 0.9% Flush) 10 ml IV PRN PRN PRN Reason: Flush Sodium Chloride (Sodium Chloride 0.9% Flush) 10 ml IV BID [facility] Last Admin: 05/19/21 20:50 Dose: 10 ml Documented by: Admin: 05/19/21 08:41 Dose: Not Given Documented by: Admin: 05/18/21 21:24 Dose: Not Given Documented by: Admin: 05/18/21 10:47 Dose: Not Given Documented by: Admin: 05/17/21 20:46 Dose: Not Given Documented by: Admin: 05/17/21 11:34 Dose: Not Given Documented by: Admin: 05/16/21 20:57 Dose: 10 ml Documented by: Admin: 05/16/21 08:57 Dose: 10 ml Documented by: YAMILE Tamsulosin HCl (Tamsulosin 0.4 Mg Capsule) 0.4 mg PO DAILY [facility] Last Admin: 05/19/21 14:37 Dose: 0.4 mg Documented by: Admin: 05/19/21 12:34 Dose: Not Given Documented by: Admin: 05/18/21 12:59 Dose: Not Given Documented by: RICKY Discontinued Medications Albuterol (Albuterol 2.5 Mg/3 Ml Neb (Adult)) 2.5 mg INH NOW ONE Stop: 05/13/21 18:34 Last Admin: 05/14/21 01:09 Dose: Not Given Documented by: ANNIE Albuterol (Albuterol 2.5 Mg/3 Ml Neb (Adult)) 2.5 mg INH NOW PRN PRN Reason: Coughing, Wheezing, Dyspnea Albuterol (Albuterol 2.5 Mg/3 Ml Neb (Adult)) 2.5 mg INH NOW ONE Stop: 05/14/21 15:01 Last Admin: 05/14/21 15:00 Dose: Not Given Documented by: DEONDRE Albuterol (Albuterol 2.5 Mg/3 Ml Neb (Adult)) 2.5 mg INH NOW PRN PRN Reason: Coughing, Wheezing, Dyspnea Amino Acids/Electrolytes (Tpn Per Pharmacy) 1 request MISC CONT [facility] Bisacodyl (Bisacodyl 5 Mg Tablet) 10 mg PO NOW ONE Stop: 05/14/21 08:57 Last Admin: 05/14/21 10:19 Dose: 10 mg Documented by: DEONDRE Bupivacaine HCl (Bupivacaine 0.25% (Pf) Vial) 30 ml INJ NOW ONE Stop: 05/14/21 15:48 Last Admin: 05/14/21 15:47 Dose: 30 ml Documented by: TAMIKO Bupivacaine Liposome (Bupivacaine Liposome 266 Mg/20 Ml Vial) 266 mg INJ NOW ONE Stop: 05/14/21 15:30 Last Admin: 05/14/21 15:29 Dose: 266 mg Documented by: TAMIKO Fentanyl (Fentanyl 100 Mcg/2 Ml Inj) 0 mcg IV Q5M PRN PRN Reason: Pain, Moderate (4-6) Hydromorphone HCl (Hydromorphone 2 Mg Inj) 0 mg IV Q5MIN PRN PRN Reason: Pain, Mild (1-3) Hydroxyzine HCl (Hydroxyzine 50 Mg/Ml Inj) 25 mg IM NOW PRN PRN Reason: Pain, Mild (1-3) Lactated Ringer's (Lactated Ringers) 1,000 mls @ 100 mls/hr IV CONT PRINCE Last Admin: 05/15/21 10:23 Dose: 100 mls/hr Documented by: Infusion: 05/15/21 09:25 Dose: 100 mls/hr Documented by: Infusion: 05/14/21 23:26 Dose: 100 mls/hr Documented by: Admin: 05/14/21 23:25 Dose: 150 mls/hr Documented by: Infusion: 05/14/21 20:31 Dose: 150 mls/hr Documented by: Admin: 05/14/21 13:50 Dose: 150 mls/hr Documented by: Infusion: 05/14/21 09:35 Dose: 150 mls/hr Documented by: Admin: 05/14/21 02:54 Dose: 150 mls/hr Documented by: Infusion: 05/14/21 02:54 Dose: 150 mls/hr Documented by: Admin: 05/13/21 20:28 Dose: 150 mls/hr Documented by: Infusion: 05/13/21 20:28 Dose: 150 mls/hr Documented by: Infusion: 05/13/21 18:53 Dose: 150 mls/hr Documented by: Admin: 05/13/21 17:55 Dose: 150 mls/hr Documented by: DENG Piperacillin Sod/Tazobactam (Sod 4.5 gm/ Sodium Chloride) 100 mls @ 200 mls/hr IV NOW ONE Stop: 05/14/21 15:01 Last Infusion: 05/14/21 14:40 Dose: 0 mls/hr Documented by: Admin: 05/14/21 14:20 Dose: 200 mls/hr Documented by: SLIM Lactated Ringer's (Lactated Ringers) 1,000 mls @ 42 mls/hr IV CONT PRINCE Last Admin: 05/14/21 14:30 Dose: Not Given Documented by: DEONDRE Lactated Ringer's (Lactated Ringers) 1,000 mls @ 120 mls/hr IV CONT PRINCE Last Admin: 05/14/21 16:20 Dose: Not Given Documented by: DEONDRE Metoclopramide HCl 10 mg/ (Sodium Chloride) 52 mls @ 208 mls/hr IV NOW ONE Stop: 05/17/21 03:22 Last Admin: 05/17/21 03:29 Dose: 208 mls/hr Documented by: ARISTEO Potassium Chloride/Dextrose/Sod Cl (Dextrose 5%-0.45%Ns W/Kcl 20meq) 1,000 mls @ 100 mls/hr IV CONT PRINCE Stop: 05/18/21 18:00 Last Infusion: 05/18/21 22:24 Dose: 0 mls/hr Documented by: Infusion: 05/18/21 16:00 Dose: 125 mls/hr Documented by: Infusion: 05/18/21 12:27 Dose: 0 mls/hr Documented by: Admin: 05/18/21 10:48 Dose: 125 mls/hr Documented by: Infusion: 05/18/21 10:48 Dose: 125 mls/hr Documented by: Admin: 05/18/21 02:51 Dose: 125 mls/hr Documented by: Infusion: 05/18/21 02:50 Dose: 125 mls/hr Documented by: Admin: 05/17/21 17:04 Dose: 125 mls/hr Documented by: Infusion: 05/17/21 17:04 Dose: 125 mls/hr Documented by: Admin: 05/17/21 10:15 Dose: 125 mls/hr Documented by: WAN Fat Emulsion Intravenous (Clinolipid 20%) 50 gm in 250 mls @ 25 mls/hr IV 1800 ONE Stop: 05/19/21 03:59 Last Admin: 05/18/21 18:27 Dose: 25 mls/hr Documented by: RICKY Multivitamins 10 ml/ Chromium/Copper/Manganese/Seleni/Zn 1 ml/ Amino Acids/Electrolytes 1,011 mls @ 42.125 mls/hr IV CONT PR[facility]CE Stop: 05/19/21 17:59 Last Admin: 05/18/21 18:27 Dose: 42.125 mls/hr Documented by: RICKY Lidocaine HCl (Lidocaine 2% (Glydo) 6 Ml Gel) 6 ml TOP NOW ONE Stop: 05/13/21 14:11 Last Admin: 05/13/21 14:27 Dose: 6 ml Documented by: NORA Lidocaine HCl (Lidocaine Jelly 2% 5 Ml) 1 applic TOP NOW ONE Stop: 05/17/21 11:08 Last Admin: 05/17/21 09:30 Dose: 1 applic Documented by: WAN Lorazepam (Lorazepam 2 Mg/Ml Inj) 0.25 mg IV NOW PRN PRN Reason: Anxiety Metoclopramide HCl (Metoclopramide 10 Mg/2 Ml Inj) 10 mg IV NOW PRN PRN Reason: Nausea And Vomiting Metronidazole (Metronidazole 500 Mg Tablet) 500 mg PO TID [facility] Last Admin: 05/14/21 15:00 Dose: Not Given Documented by: Admin: 05/14/21 10:20 Dose: 500 mg Documented by: Admin: 05/13/21 20:33 Dose: 500 mg Documented by: ANNIE Neomycin Sulfate (Neomycin 500 Mg Tablet) 1,000 mg PO Q8HR [facility] Last Admin: 05/14/21 15:00 Dose: Not Given Documented by: Admin: 05/14/21 08:00 Dose: 1,000 mg Documented by: Admin: 05/13/21 23:29 Dose: Not Given Documented by: ANNIE Non-Formulary Medication (Budesonide [Pulmicort Flexhaler]) 1 puff INH BID [facility] Ondansetron HCl (Ondansetron 4 Mg/2 Ml Inj) 4 mg IV NOW PRN PRN Reason: Nausea And Vomiting Ondansetron HCl (Ondansetron 4 Mg/2 Ml Inj) 4 mg IV NOW PRN PRN Reason: Nausea And Vomiting Polyethylene Glycol/Electrolytes ([id number]/Sod Sulf,Bicarb,Cl/Kcl 4,000 Ml Solution) 4,000 ml PO NOW ONE Stop: 05/13/21 18:24 Last Admin: 05/13/21 20:25 Dose: 4,000 ml Documented by: ANNIE Sodium Chloride (Sodium Chloride 0.9% Flush) 10 ml IV PRN PRN PRN Reason: Flush Sodium Chloride (Sodium Chloride 0.9% Flush) 10 ml IV BID [facility] Consultations Consultation #1: Consult with Dr. Krause (general surgery). Accepts patient and will plan for surgery on sigmoid volvulus today. Time: 15:40 Vital Signs Vital signs: Vital Signs - 8 hr 05/13/21 13:25 05/13/21 14:30 05/13/21 14:50 Temperature 98.4 F Pulse Rate 78 70 Respiratory Rate 18 Blood Pressure 143/90 H 127/61 Pulse Oximetry 97 99 05/13/21 15:17 05/13/21 15:30 Temperature Pulse Rate 57 L 63 Respiratory Rate Blood Pressure Pulse Oximetry 93 96 <Amber Pfeiffer MD - Last Filed: 05/20/21 07:32> Orders Ordered: Acetaminophen (Acetaminophen 325 Mg Tablet) 650 mg PO Q4HR PRN PRN Reason: Fever/Mild Pain (1-3) Last Admin: 05/16/21 08:56 Dose: 650 mg Documented by: Admin: 05/16/21 01:20 Dose: 650 mg Documented by: Admin: 05/15/21 13:45 Dose: 650 mg Documented by: Admin: 05/15/21 05:46 Dose: 650 mg Documented by: EVERTON Al Hydrox/Mg Hydrox/Simethicone (Mag Hydrox/Alum/Simeth 30 Ml Udc) 30 ml PO Q6HR PRN PRN Reason: Dyspepsia Last Admin: 05/19/21 00:05 Dose: 30 ml Documented by: KALYN Albuterol (Albuterol 2.5 Mg/3 Ml Neb (Adult)) 2.5 mg INH [id number] PRN PRN Reason: Shortness Of Breath Last Admin: 05/13/21 20:05 Dose: 2.5 mg Documented by: RADHA Benzocaine/Butamben/Tetracaine HCl (Tetracaine/Benzocaine/Butamben (Cetacaine) Bottle) 1 spray TOP PRN PRN PRN Reason: Sore Throat Last Admin: 05/17/21 11:32 Dose: 1 spray Documented by: WAN Budesonide (Budesonide 0.5 Mg/2 Ml Neb) 0.5 mg INH RTBID PRINCE Last Admin: 05/19/21 20:50 Dose: Not Given Documented by: Admin: 05/19/21 07:40 Dose: 0.5 mg Documented by: Admin: 05/18/21 20:16 Dose: Not Given Documented by: Admin: 05/18/21 06:53 Dose: 0.5 mg Documented by: Admin: 05/17/21 18:54 Dose: 0.5 mg Documented by: Admin: 05/17/21 07:33 Dose: Not Given Documented by: Admin: 05/16/21 19:41 Dose: Not Given Documented by: Admin: 05/16/21 07:54 Dose: 0.5 mg Documented by: Admin: 05/15/21 21:00 Dose: 0.5 mg Documented by: Admin: 05/15/21 08:00 Dose: Not Given Documented by: Admin: 05/14/21 20:00 Dose: Not Given Documented by: Admin: 05/14/21 09:00 Dose: Not Given Documented by: Admin: 05/13/21 20:05 Dose: Not Given Documented by: RADHA Enoxaparin Sodium (Enoxaparin 40 Mg/0.4 Ml Syringe) 40 mg SUBCUT DAILY [facility] Last Admin: 05/19/21 08:43 Dose: 40 mg Documented by: MAINE Heparin Sodium (Porcine) (Heparin Flush (Cl/Picc/Mid-Line) 50 Unit/5 Ml Syringe) 50 unit IV BID [facility] Last Admin: 05/19/21 20:49 Dose: 50 unit Documented by: Admin: 05/19/21 08:41 Dose: Not Given Documented by: Admin: 05/18/21 21:23 Dose: Not Given Documented by: Admin: 05/18/21 18:26 Dose: Not Given Documented by: RICKY Hydromorphone HCl (Hydromorphone 0.5 Mg Inj) 0.5 mg IV Q6H PRN PRN Reason: Pain, Moderate (4-6) Last Admin: 05/15/21 15:56 Dose: 0.5 mg Documented by: Admin: 05/15/21 03:27 Dose: 0.5 mg Documented by: Admin: 05/14/21 17:28 Dose: 0.5 mg Documented by: DEONDRE Multivitamins 10 ml/ Chromium/Copper/Manganese/Seleni/Zn 1 ml/ Potassium Phosphate 15 mmol/ Amino Acids/Electrolytes 2,016 mls @ 62 mls/hr IV CONT [facility] Stop: 05/21/21 17:59 Last Admin: 05/19/21 18:54 Dose: 62 mls/hr Documented by: MAINE Naloxone HCl (Naloxone 0.4 Mg/Ml Vial) 0.2 mg IV Q2MIN PRN PRN Reason: Opiate Reversal Ondansetron HCl (Ondansetron 4 Mg/2 Ml Inj) 4 mg IV Q8HR PRN PRN Reason: Nausea And Vomiting Last Admin: 05/19/21 00:08 Dose: 4 mg Documented by: Admin: 05/18/21 12:06 Dose: 4 mg Documented by: Admin: 05/17/21 19:08 Dose: 4 mg Documented by: Admin: 05/16/21 23:53 Dose: 4 mg Documented by: Admin: 05/16/21 06:27 Dose: 4 mg Documented by: ARISTEO Oxycodone HCl (Oxycodone Ir 5 Mg Tablet) 5 mg PO Q4HR PRN PRN Reason: Pain, Moderate (4-6) Last Admin: 05/15/21 21:22 Dose: 5 mg Documented by: Admin: 05/15/21 13:45 Dose: 5 mg Documented by: Admin: 05/15/21 05:46 Dose: 5 mg Documented by: EVERTON Simethicone (Simethicone 80 Mg Tablet) 80 mg PO QID PRN PRN Reason: Flatulence Last Admin: 05/18/21 13:00 Dose: 80 mg Documented by: Admin: 05/16/21 22:41 Dose: 80 mg Documented by: Admin: 05/16/21 15:24 Dose: 80 mg Documented by: WAN Sodium Chloride (Sodium Chloride 0.9% Flush) 10 ml IV PRN PRN PRN Reason: Flush Sodium Chloride (Sodium Chloride 0.9% Flush) 10 ml IV BID [facility] Last Admin: 05/19/21 20:50 Dose: 10 ml Documented by: Admin: 05/19/21 08:41 Dose: Not Given Documented by: Admin: 05/18/21 21:24 Dose: Not Given Documented by: Admin: 05/18/21 10:47 Dose: Not Given Documented by: Admin: 05/17/21 20:46 Dose: Not Given Documented by: Admin: 05/17/21 11:34 Dose: Not Given Documented by: Admin: 05/16/21 20:57 Dose: 10 ml Documented by: Admin: 05/16/21 08:57 Dose: 10 ml Documented by: YAMILE Tamsulosin HCl (Tamsulosin 0.4 Mg Capsule) 0.4 mg PO DAILY [facility] Last Admin: 05/19/21 14:37 Dose: 0.4 mg Documented by: Admin: 05/19/21 12:34 Dose: Not Given Documented by: Admin: 05/18/21 12:59 Dose: Not Given Documented by: HEATHLANINOCENCIA Discontinued Medications Albuterol (Albuterol 2.5 Mg/3 Ml Neb (Adult)) 2.5 mg INH NOW ONE Stop: 05/13/21 18:34 Last Admin: 05/14/21 01:09 Dose: Not Given Documented by: ANNIE Albuterol (Albuterol 2.5 Mg/3 Ml Neb (Adult)) 2.5 mg INH NOW PRN PRN Reason: Coughing, Wheezing, Dyspnea Albuterol (Albuterol 2.5 Mg/3 Ml Neb (Adult)) 2.5 mg INH NOW ONE Stop: 05/14/21 15:01 Last Admin: 05/14/21 15:00 Dose: Not Given Documented by: DEONDRE Albuterol (Albuterol 2.5 Mg/3 Ml Neb (Adult)) 2.5 mg INH NOW PRN PRN Reason: Coughing, Wheezing, Dyspnea Amino Acids/Electrolytes (Tpn Per Pharmacy) 1 request MISC CONT [facility] Bisacodyl (Bisacodyl 5 Mg Tablet) 10 mg PO NOW ONE Stop: 05/14/21 08:57 Last Admin: 05/14/21 10:19 Dose: 10 mg Documented by: DEONDRE Bupivacaine HCl (Bupivacaine 0.25% (Pf) Vial) 30 ml INJ NOW ONE Stop: 05/14/21 15:48 Last Admin: 05/14/21 15:47 Dose: 30 ml Documented by: TAMIKO Bupivacaine Liposome (Bupivacaine Liposome 266 Mg/20 Ml Vial) 266 mg INJ NOW ONE Stop: 05/14/21 15:30 Last Admin: 05/14/21 15:29 Dose: 266 mg Documented by: TAMIKO Fentanyl (Fentanyl 100 Mcg/2 Ml Inj) 0 mcg IV Q5M PRN PRN Reason: Pain, Moderate (4-6) Hydromorphone HCl (Hydromorphone 2 Mg Inj) 0 mg IV Q5MIN PRN PRN Reason: Pain, Mild (1-3) Hydroxyzine HCl (Hydroxyzine 50 Mg/Ml Inj) 25 mg IM NOW PRN PRN Reason: Pain, Mild (1-3) Lactated Ringer's (Lactated Ringers) 1,000 mls @ 100 mls/hr IV CONT [facility] Last Admin: 05/15/21 10:23 Dose: 100 mls/hr Documented by: Infusion: 05/15/21 09:25 Dose: 100 mls/hr Documented by: Infusion: 05/14/21 23:26 Dose: 100 mls/hr Documented by: Admin: 05/14/21 23:25 Dose: 150 mls/hr Documented by: Infusion: 05/14/21 20:31 Dose: 150 mls/hr Documented by: Admin: 05/14/21 13:50 Dose: 150 mls/hr Documented by: Infusion: 05/14/21 09:35 Dose: 150 mls/hr Documented by: Admin: 05/14/21 02:54 Dose: 150 mls/hr Documented by: Infusion: 05/14/21 02:54 Dose: 150 mls/hr Documented by: Admin: 05/13/21 20:28 Dose: 150 mls/hr Documented by: Infusion: 05/13/21 20:28 Dose: 150 mls/hr Documented by: Infusion: 05/13/21 18:53 Dose: 150 mls/hr Documented by: Admin: 05/13/21 17:55 Dose: 150 mls/hr Documented by: DENG Piperacillin Sod/Tazobactam (Sod 4.5 gm/ Sodium Chloride) 100 mls @ 200 mls/hr IV NOW ONE Stop: 05/14/21 15:01 Last Infusion: 05/14/21 14:40 Dose: 0 mls/hr Documented by: Admin: 05/14/21 14:20 Dose: 200 mls/hr Documented by: SLIM Lactated Ringer's (Lactated Ringers) 1,000 mls @ 42 mls/hr IV CONT PRINCE Last Admin: 05/14/21 14:30 Dose: Not Given Documented by: DEONDRE Lactated Ringer's (Lactated Ringers) 1,000 mls @ 120 mls/hr IV CONT PRINCE Last Admin: 05/14/21 16:20 Dose: Not Given Documented by: DEONDRE Metoclopramide HCl 10 mg/ (Sodium Chloride) 52 mls @ 208 mls/hr IV NOW ONE Stop: 05/17/21 03:22 Last Admin: 05/17/21 03:29 Dose: 208 mls/hr Documented by: ARISTEO Potassium Chloride/Dextrose/Sod Cl (Dextrose 5%-0.45%Ns W/Kcl 20meq) 1,000 mls @ 100 mls/hr IV CONT PRINCE Stop: 05/18/21 18:00 Last Infusion: 05/18/21 22:24 Dose: 0 mls/hr Documented by: Infusion: 05/18/21 16:00 Dose: 125 mls/hr Documented by: Infusion: 05/18/21 12:27 Dose: 0 mls/hr Documented by: Admin: 05/18/21 10:48 Dose: 125 mls/hr Documented by: Infusion: 05/18/21 10:48 Dose: 125 mls/hr Documented by: Admin: 05/18/21 02:51 Dose: 125 mls/hr Documented by: Infusion: 05/18/21 02:50 Dose: 125 mls/hr Documented by: Admin: 05/17/21 17:04 Dose: 125 mls/hr Documented by: Infusion: 05/17/21 17:04 Dose: 125 mls/hr Documented by: Admin: 05/17/21 10:15 Dose: 125 mls/hr Documented by: WAN Fat Emulsion Intravenous (Clinolipid 20%) 50 gm in 250 mls @ 25 mls/hr IV 1800 ONE Stop: 05/19/21 03:59 Last Admin: 05/18/21 18:27 Dose: 25 mls/hr Documented by: RICKY Multivitamins 10 ml/ Chromium/Copper/Manganese/Seleni/Zn 1 ml/ Amino Acids/Electrolytes 1,011 mls @ 42.125 mls/hr IV CONT PRINCE Stop: 05/19/21 17:59 Last Admin: 05/18/21 18:27 Dose: 42.125 mls/hr Documented by: RICKY Lidocaine HCl (Lidocaine 2% (Glydo) 6 Ml Gel) 6 ml TOP NOW ONE Stop: 05/13/21 14:11 Last Admin: 05/13/21 14:27 Dose: 6 ml Documented by: NORA Lidocaine HCl (Lidocaine Jelly 2% 5 Ml) 1 applic TOP NOW ONE Stop: 05/17/21 11:08 Last Admin: 05/17/21 09:30 Dose: 1 applic Documented by: WAN Lorazepam (Lorazepam 2 Mg/Ml Inj) 0.25 mg IV NOW PRN PRN Reason: Anxiety Metoclopramide HCl (Metoclopramide 10 Mg/2 Ml Inj) 10 mg IV NOW PRN PRN Reason: Nausea And Vomiting Metronidazole (Metronidazole 500 Mg Tablet) 500 mg PO TID [facility] Last Admin: 05/14/21 15:00 Dose: Not Given Documented by: Admin: 05/14/21 10:20 Dose: 500 mg Documented by: Admin: 05/13/21 20:33 Dose: 500 mg Documented by: ANNIE Neomycin Sulfate (Neomycin 500 Mg Tablet) 1,000 mg PO Q8HR [facility] Last Admin: 05/14/21 15:00 Dose: Not Given Documented by: Admin: 05/14/21 08:00 Dose: 1,000 mg Documented by: Admin: 05/13/21 23:29 Dose: Not Given Documented by: ANNIE Non-Formulary Medication (Budesonide [Pulmicort Flexhaler]) 1 puff INH BID [facility] Ondansetron HCl (Ondansetron 4 Mg/2 Ml Inj) 4 mg IV NOW PRN PRN Reason: Nausea And Vomiting Ondansetron HCl (Ondansetron 4 Mg/2 Ml Inj) 4 mg IV NOW PRN PRN Reason: Nausea And Vomiting Polyethylene Glycol/Electrolytes ([id number]/Sod Sulf,Bicarb,Cl/Kcl 4,000 Ml Solution) 4,000 ml PO NOW ONE Stop: 05/13/21 18:24 Last Admin: 05/13/21 20:25 Dose: 4,000 ml Documented by: ANNIE Sodium Chloride (Sodium Chloride 0.9% Flush) 10 ml IV PRN PRN PRN Reason: Flush Sodium Chloride (Sodium Chloride 0.9% Flush) 10 ml IV BID [facility] Vital Signs Vital signs: Vital Signs - 8 hr 05/13/21 13:25 05/13/21 14:30 05/13/21 14:50 Temperature 98.4 F Pulse Rate 78 70 Respiratory Rate 18 Blood Pressure 143/90 H 127/61 Pulse Oximetry 97 99 05/13/21 15:17 05/13/21 15:30 Temperature Pulse Rate 57 L 63 Respiratory Rate Blood Pressure Pulse Oximetry 93 96 MDM - Abdominal Pain <Nolberto Rivas PA-C - Last Filed: 05/14/21 14:46> Lab Data Result diagrams: 05/20/21 06:00 05/20/21 06:00 Labs: Lab Results 05/13/21 05/13/21 05/13/21 Range/Units 13:40 13:40 13:40 WBC 5.4 (4.5-11.0) X10^3/uL RBC 4.75 (4.5-5.9) X10^6/uL Hgb 14.4 (13.5-17.5) g/dL Hct 42.7 (41-53) % MCV 90.0 (80-100) fL MCH 30.4 (26-34) PG MCHC 33.8 (30-36) % RDW 14.7 (11.6-14.8) % Plt Count 284 (150-400) X10^3/uL Neut % (Auto) 68.7 (50-75) % Lymph % (Auto) 16.6 L (25-40) % Dane % (Auto) 11.8 (3-14) % Eos % (Auto) 2.3 (2-4) % Baso % (Auto) 0.6 (0-2) % Neut # (Auto) 3700 (4450-2065) /uL Lymph # (Auto) 900 L (2891-4749) /uL [place] # (Auto) 600 (0-900) /uL Eos # (Auto) 100 (0-450) /uL Baso # (Auto) 0 (0-100) /uL Sodium 138 (137-145) mmol/L Potassium 3.6 (3.4-5.1) mmol/L Chloride 105 (98-107) mmol/L Carbon Dioxide 27 (22-32) mmol/L BUN 13 (9-20) mg/dL Creatinine 0.88 (0.66-1.25) mg/dL Estimated GFR > 60.0 (>60) mL/min BUN/Creatinine Ratio 14.8 (6-22) Glucose 113 H (80-110) mg/dL Calcium 9.6 (8.4-10.2) mg/dL Total Bilirubin 1.1 (0.2-1.3) mg/dL AST 47 (17-59) IU/L ALT 45 (<50) IU/L Alkaline Phosphatase 78 (38-126) U/L Total Protein 6.9 (6.3-8.2) g/dL Albumin 4.2 (3.5-5.0) g/dL Globulin 2.7 (1.7-4.1) g/dL Albumin/Globulin Ratio 1.6 (1.0-2.8) Lipase 123 (23-300) U/L Urine Color Urine Appearance Urine pH (4.5-8.0) Ur Specific [place] (1.000-1.035) Urine Protein (Negative) Urine Glucose (UA) (Negative) g/dL Urine Ketones (NEGATIVE) Urine Occult Blood (Negative) Urine Nitrate (Negative) Urine Bilirubin (NEGATIVE) Urine Urobilinogen (0.2) E.U./dL Ur Leukocyte Esterase (NEGATIVE) Urine RBC (0-5/HPF) Urine WBC (0-5/HPF) Ur Squamous Epith Cells (0-5/HPF) Amorphous Sediment Urine Bacteria (None) Urine Mucus (Negative) Ur Culture Indicated? SARS-CoV-2 (PCR) Negative (Negative) 05/13/21 Range/Units 14:25 WBC (4.5-11.0) X10^3/uL RBC (4.5-5.9) X10^6/uL Hgb (13.5-17.5) g/dL Hct (41-53) % MCV (80-100) fL MCH (26-34) PG MCHC (30-36) % RDW (11.6-14.8) % Plt Count (150-400) X10^3/uL Neut % (Auto) (50-75) % Lymph % (Auto) (25-40) % [place] % (Auto) (3-14) % Eos % (Auto) (2-4) % Baso % (Auto) (0-2) % Neut # (Auto) (4529-5700) /uL Lymph # (Auto) (0597-0205) /uL [place] # (Auto) (0-900) /uL Eos # (Auto) (0-450) /uL Baso # (Auto) (0-100) /uL Sodium (137-145) mmol/L Potassium (3.4-5.1) mmol/L Chloride (98-107) mmol/L Carbon Dioxide (22-32) mmol/L BUN (9-20) mg/dL Creatinine (0.66-1.25) mg/dL Estimated GFR (>60) mL/min BUN/Creatinine Ratio (6-22) Glucose (80-110) mg/dL Calcium (8.4-10.2) mg/dL Total Bilirubin (0.2-1.3) mg/dL AST (17-59) IU/L ALT (<50) IU/L Alkaline Phosphatase (38-126) U/L Total Protein (6.3-8.2) g/dL Albumin (3.5-5.0) g/dL Globulin (1.7-4.1) g/dL Albumin/Globulin Ratio (1.0-2.8) Lipase (23-300) U/L Urine Color Yellow Urine Appearance Clear Urine pH 6.5 (4.5-8.0) Ur Specific [place] 1.015 (1.000-1.035) Urine Protein Negative (Negative) Urine Glucose (UA) Negative (Negative) g/dL Urine Ketones Trace H (NEGATIVE) Urine Occult Blood 1+ H (Negative) Urine Nitrate Negative (Negative) Urine Bilirubin Negative (NEGATIVE) Urine Urobilinogen 0.2 (0.2) E.U./dL Ur Leukocyte Esterase Negative (NEGATIVE) Urine RBC 1-5/hpf (0-5/HPF) Urine WBC 0-1/hpf (0-5/HPF) Ur Squamous Epith Cells 1-5 /hpf (0-5/HPF) Amorphous Sediment 1+ Urine Bacteria Occasional (0-1) (None) Urine Mucus 1+ H (Negative) Ur Culture Indicated? Cult not indicated SARS-CoV-2 (PCR) (Negative) Imaging Data Abdominal x-ray: Radiologist's Impression: PROCEDURE:? XR ABDOMEN 1V ? INDICATIONS:? abd pain w/ ? constipation w/ diarrhea ? TECHNIQUE:? One view of the abdomen acquired.? ? COMPARISON:? None. ? FINDINGS:? ? Surgical changes and devices:? None.? ? Bowel:? Moderately to severely distended loop of large bowel within the left upper quadrant which demonstrates an air-fluid level. ? Soft tissues:? No suspicious abdominal calcifications.? Visualized solid organ contours appear normal in size.? ? Bones:? No suspicious bony lesions.? ? IMPRESSION:? Findings suggestive of high-grade colonic obstruction.? This could be further assessed with IV and rectal contrast-enhanced CT examination, if clinically indicated. ? ? Dictated by: Nasreen Del Rosario M.D. on 05/13/2021 at 14:24 ? ? Approved by: Nasreen Del Rosario M.D. on 05/13/2021 at 14:26 ? CT scan - abdomen/pelvis: Radiologist's Impression: PROCEDURE:? CT ABDOMEN PELVIS W CON ? INDICATIONS:? Constipation, abdominal distension ? TECHNIQUE:? After the administration of intravenous contrast, axial sections acquired from the lung bases to the pubic symphysis.? Coronal and sagittal reformats were performed.? For radiation dose reduction, the following was used:? automated exposure control, adjustment of mA and/or kV according to patient size.? ? COMPARISON:? [facility], CR, XR ABDOMEN 1V, 05/13/2021, 13:43. ? FINDINGS:? Image quality:? Excellent.? ? Lung bases:? Unremarkable. Heart:? No significant findings. ? ABDOMEN: Liver:? Unremarkable.? ? Gallbladder:? Is grossly unremarkable? ? Biliary ducts:? Unremarkable.? ? Pancreas:? Unremarkable.? ? Spleen:? Unremarkable.? ? Adrenal Glands:? Unremarkable.? ? Kidneys and Ureters:? Unremarkable.? ? ? Stomach and Bowel:? Stomach and small bowel are grossly unremarkable.? Moderate to severe dilatation of the colon, with an abrupt transition point at the sigmoid colon where there is a swirled appearance of the mesentery. Peritoneum:? Small amount of perihepatic and pelvic free fluid.? No free air.? ? Ventral Wall: ? No hernias.? Abdominal Nodes:? No retroperitoneal or mesenteric adenopathy by size criteria.? Vessels:? Aorta and inferior vena cava are normal in size.? ? PELVIS: Pelvic Organs:? Unremarkable.? ? Bladder:? Decompressed.? A Hoover catheter is present, the balloon of which is inflated within the intra prosthetic urethra. Pelvic Nodes: No enlarged lymph nodes.? Miscellaneous: No hernias are seen. ? ? ? Bones:? Unremarkable.? IMPRESSION:? 1. Sigmoid volvulus as described above. 2. Hoover catheter balloon is inflated within the prosthetic urethra. 3. Small amount of ascites. 4. Findings discussed with Dr. Rivas on 05/13/2021 at 15:00 hours.? ? ? Dictated by: Nasreen Del Rosario M.D. on 05/13/2021 at 14:58 ? ? Approved by: Nasreen Del Rosario M.D. on 05/13/2021 at 15:02 ? ECG Data Interpretation: Ventricular rate of 59, [place] interval of 156ms, sinus bradycardia MDM Narrative Medical decision making narrative: To consider ischemic bowel versus constipation versus gastroenteritis versus is appendicitis versus cholelithiasis versus cholecystitis. <Amber Pfeiffer MD - Last Filed: 05/20/21 07:32> Lab Data Labs: Lab Results 05/13/21 05/13/21 05/13/21 Range/Units 13:40 13:40 13:40 WBC 5.4 (4.5-11.0) X10^3/uL RBC 4.75 (4.5-5.9) X10^6/uL Hgb 14.4 (13.5-17.5) g/dL Hct 42.7 (41-53) % MCV 90.0 (80-100) fL MCH 30.4 (26-34) PG MCHC 33.8 (30-36) % RDW 14.7 (11.6-14.8) % Plt Count 284 (150-400) X10^3/uL Neut % (Auto) 68.7 (50-75) % Lymph % (Auto) 16.6 L (25-40) % Dane % (Auto) 11.8 (3-14) % Eos % (Auto) 2.3 (2-4) % Baso % (Auto) 0.6 (0-2) % Neut # (Auto) 3700 (7831-1682) /uL Lymph # (Auto) 900 L (2400-1774) /uL [place]ane # (Auto) 600 (0-900) /uL Eos # (Auto) 100 (0-450) /uL Baso # (Auto) 0 (0-100) /uL Sodium 138 (137-145) mmol/L Potassium 3.6 (3.4-5.1) mmol/L Chloride 105 (98-107) mmol/L Carbon Dioxide 27 (22-32) mmol/L BUN 13 (9-20) mg/dL Creatinine 0.88 (0.66-1.25) mg/dL Estimated GFR > 60.0 (>60) mL/min BUN/Creatinine Ratio 14.8 (6-22) Glucose 113 H (80-110) mg/dL Calcium 9.6 (8.4-10.2) mg/dL Total Bilirubin 1.1 (0.2-1.3) mg/dL AST 47 (17-59) IU/L ALT 45 (<50) IU/L Alkaline Phosphatase 78 (38-126) U/L Total Protein 6.9 (6.3-8.2) g/dL Albumin 4.2 (3.5-5.0) g/dL Globulin 2.7 (1.7-4.1) g/dL Albumin/Globulin Ratio 1.6 (1.0-2.8) Lipase 123 (23-300) U/L Urine Color Urine Appearance Urine pH (4.5-8.0) Ur Specific [place] (1.000-1.035) Urine Protein (Negative) Urine Glucose (UA) (Negative) g/dL Urine Ketones (NEGATIVE) Urine Occult Blood (Negative) Urine Nitrate (Negative) Urine Bilirubin (NEGATIVE) Urine Urobilinogen (0.2) E.U./dL Ur Leukocyte Esterase (NEGATIVE) Urine RBC (0-5/HPF) Urine WBC (0-5/HPF) Ur Squamous Epith Cells (0-5/HPF) Amorphous Sediment Urine Bacteria (None) Urine Mucus (Negative) Ur Culture Indicated? SARS-CoV-2 (PCR) Negative (Negative) 05/13/21 Range/Units 14:25 WBC (4.5-11.0) X10^3/uL RBC (4.5-5.9) X10^6/uL Hgb (13.5-17.5) g/dL Hct (41-53) % MCV (80-100) fL MCH (26-34) PG MCHC (30-36) % RDW (11.6-14.8) % Plt Count (150-400) X10^3/uL Neut % (Auto) (50-75) % Lymph % (Auto) (25-40) % [place]ane % (Auto) (3-14) % Eos % (Auto) (2-4) % Baso % (Auto) (0-2) % Neut # (Auto) (8964-4816) /uL Lymph # (Auto) (3533-4496) /uL [place]ane # (Auto) (0-900) /uL Eos # (Auto) (0-450) /uL Baso # (Auto) (0-100) /uL Sodium (137-145) mmol/L Potassium (3.4-5.1) mmol/L Chloride (98-107) mmol/L Carbon Dioxide (22-32) mmol/L BUN (9-20) mg/dL Creatinine (0.66-1.25) mg/dL Estimated GFR (>60) mL/min BUN/Creatinine Ratio (6-22) Glucose (80-110) mg/dL Calcium (8.4-10.2) mg/dL Total Bilirubin (0.2-1.3) mg/dL AST (17-59) IU/L ALT (<50) IU/L Alkaline Phosphatase (38-126) U/L Total Protein (6.3-8.2) g/dL Albumin (3.5-5.0) g/dL Globulin (1.7-4.1) g/dL Albumin/Globulin Ratio (1.0-2.8) Lipase (23-300) U/L Urine Color Yellow Urine Appearance Clear Urine pH 6.5 (4.5-8.0) Ur Specific [place] 1.015 (1.000-1.035) Urine Protein Negative (Negative) Urine Glucose (UA) Negative (Negative) g/dL Urine Ketones Trace H (NEGATIVE) Urine Occult Blood 1+ H (Negative) Urine Nitrate Negative (Negative) Urine Bilirubin Negative (NEGATIVE) Urine Urobilinogen 0.2 (0.2) E.U./dL Ur Leukocyte Esterase Negative (NEGATIVE) Urine RBC 1-5/hpf (0-5/HPF) Urine WBC 0-1/hpf (0-5/HPF) Ur Squamous Epith Cells 1-5 /hpf (0-5/HPF) Amorphous Sediment 1+ Urine Bacteria Occasional (0-1) (None) Urine Mucus 1+ H (Negative) Ur Culture Indicated? Cult not indicated SARS-CoV-2 (PCR) (Negative) Discharge Plan Departure Patient Disposition: Admitted to Surgery Clinical Impression: Sigmoid volvulus Admit Date/Time: 05/13/21 16:28 Admit Provider: Juan Krause <Amber Pfeiffer MD - Last Filed: 05/20/21 07:32> Cosign ED Attending Cosignature Attestation: I was immediately available in the department for consultation throughout this patient's visit. I agree with documentation as above. Amber Pfeiffer MD
[2021-05-13 14:02] LABS: Alanine Aminotransferase 45 IU/L (<50); Albumin 4.2 g/dL (3.5-5.0); Albumin Globulin Ratio 1.6 (1.0-2.8); Alkaline Phosphatase 78 U/L (38-126); Aspartate Aminotransferase 47 IU/L (17-59); BUN Creatinine Ratio 14.8 (6-22); Bilirubin Total 1.1 mg/dL (0.2-1.3); Blood Urea Nitrogen 13 mg/dL (9-20); Calcium 9.6 mg/dL (8.4-10.2); Carbon Dioxide 27 mmol/L (22-32); Chloride 105 mmol/L (98-107); Estimated Glomerular Filt Rate > 60.0 mL/min (>60); Globulin 2.7 g/dL (1.7-4.1); Glucose 113 mg/dL (80-110); HEMOLYSIS 25 (0-50); Lipase 123 U/L (23-300); Potassium 3.6 mmol/L (3.4-5.1); Sodium 138 mmol/L (137-145); Total Protein 6.9 g/dL (6.3-8.2)
[2021-05-13] MEDS: LIDOCAINE 2% (GLYDO) 6 ML GEL TOP (14:27)
--- NOTE | 2021-05-13 14:33 | DI.CT.S_ITS ---
PROCEDURE: CT ABDOMEN PELVIS W CON INDICATIONS: Constipation, abdominal distension TECHNIQUE: After the administration of intravenous contrast, axial sections acquired from the lung bases to the pubic symphysis. Coronal and sagittal reformats were performed. For radiation dose reduction, the following was used: automated exposure control, adjustment of mA and/or kV according to patient size. COMPARISON: [facility], CR, XR ABDOMEN 1V, 05/13/2021, 13:43. FINDINGS: Image quality: Excellent. Lung bases: Unremarkable. Heart: No significant findings. ABDOMEN: Liver: Unremarkable. Gallbladder: Is grossly unremarkable Biliary ducts: Unremarkable. Pancreas: Unremarkable. Spleen: Unremarkable. Adrenal Glands: Unremarkable. Kidneys and Ureters: Unremarkable. Stomach and Bowel: Stomach and small bowel are grossly unremarkable. Moderate to severe dilatation of the colon, with an abrupt transition point at the sigmoid colon where there is a swirled appearance of the mesentery. Peritoneum: Small amount of perihepatic and pelvic free fluid. No free air. Ventral Wall: No hernias. Abdominal Nodes: No retroperitoneal or mesenteric adenopathy by size criteria. Vessels: Aorta and inferior vena cava are normal in size. PELVIS: Pelvic Organs: Unremarkable. Bladder: Decompressed. A Hoover catheter is present, the balloon of which is inflated within the intra prosthetic urethra. Pelvic Nodes: No enlarged lymph nodes. Miscellaneous: No hernias are seen. Bones: Unremarkable. IMPRESSION: 1. Sigmoid volvulus as described above. 2. Hoover catheter balloon is inflated within the prosthetic urethra. 3. Small amount of ascites. 4. Findings discussed with Dr. Rivas on 05/13/2021 at 15:00 hours. Dictated by: Nasreen Del Rosario M.D. on 05/13/2021 at 14:58 Approved by: Nasreen Del Rosario M.D. on 05/13/2021 at 15:02
[2021-05-13 14:34] LABS: COVID19 - ADMIT (NP swab/PCR) Negative (Negative)
[2021-05-13 14:36] LABS: Appearance Urine UA CLEAR; Bilirubin Urine UA NEGATIVE (NEGATIVE); Color Urine UA YELLOW; Glucose Urine UA NEGATIVE (Negative); Ketones Urine UA TRACE (NEGATIVE); Leukocyte Esterase Urine UA NEGATIVE (NEGATIVE); Nitrite Urine UA NEGATIVE (Negative); Occult Blood Urine UA 1+ (Negative); Protein Urine UA NEGATIVE (Negative); Specific Gravity Urine UA 1.015 (1.000-1.035); Urobilinogen Urine UA 0.2 E.U./dL (0.2); pH Urine UA 6.5 (4.5-8.0)
[2021-05-13 14:48] LABS: Amorphous Sediment Urine 1+; Bacteria Urine Occasional (0-1); Culture Indicated Urine Cult Not Indicated; Mucus Urine 1+ (Negative); RBC Urine 1-5/HPF (0-5/HPF); Squamous Epithelial Cell Urine 1-5 /HPF (0-5/HPF); WBC Urine 0-1/HPF (0-5/HPF)
--- NOTE | 2021-05-13 17:31 | P.HP_ITS ---
History of Present Illness History of Present Illness Date Patient Seen: 05/13/21 Chief complaint: Gas distention/nausea/vomiting/no bm since yest. Narrative: Patient is an 80-year-old man who presented to the emergency room today with signs and symptoms of a bowel obstruction. CT demonstrates a sigmoid volvulus. He has abdominal distension nausea vomiting passing liquid stool. He had a similar episode 1 month ago resolved spontaneously. On admission afebrile without leukocytosis. Patient History Medical History Acute lymphangitis of right upper extremity Family & Social History Social History: household members spouse Prior Living Arrangements House Safety & Behavioral: Feels Safe in Current Yes Environment Been Physically Hurt or No Threatened By a Person Suicidal Ideation Description None Suicide Plan Description No Plan Tobacco & Substance use: Smoking Status Former smoker alcohol intake frequency 0-2 drinks per day Substance Use Type does not use Meds Home Medications and Allergies Home Medications Medication Instructions Recorded Confirmed Type budesonide 180 mcg/actuation 1 puff INH BID #0 04/13/16 05/13/21 History breath activated powder inhaler (Pulmicort Flexhaler) cyanocobalamin (vitamin B-12) 500 500 mcg PO QAM #0 04/13/16 05/13/21 History mcg tablet (Vitamin B-12) fluticasone propionate 50 1 spray INTRANASAL QAM #0 04/13/16 05/13/21 History mcg/actuation nasal spray,suspension coenzyme Q10 30 mg capsule (CoQ-10) 30 mg PO 3XW 05/19/18 05/13/21 History vitamins A,C,K-hrte-rwylwd 14,320 1 cap PO BID 05/19/18 05/13/21 History unit-226 mg-200 unit capsule (PreserVision AREDS) wfwamxs-gsr-zin X5-D4-rnintsoe 250 1 tab PO BID 05/13/21 05/13/21 History mg-40 mg-5 mg-125 unit tablet Allergies Allergy/AdvReac Type Severity Reaction Status Date / Time No Known Drug Allergies Allergy Verified 05/13/21 13:44 Exam Vital Signs (past 8 hours): - 05/13/21 13:25 05/13/21 14:30 05/13/21 14:50 Temperature 98.4 F Pulse Rate 78 70 Respiratory Rate 18 Blood Pressure 143/90 H 127/61 Pulse Oximetry 97 99 05/13/21 15:17 05/13/21 15:30 Temperature Pulse Rate 57 L 63 Respiratory Rate Blood Pressure Pulse Oximetry 93 96 Oxygen Delivery Method Room Air Narrative Exam Narrative: General elderly man alert oriented no acute distress Chest nonlabored respirations Abdomen moderately distended mildly tender to palpation no peritonitis. Extremities warm well perfused Objective Labs Result Diagrams: 05/13/21 13:40 05/13/21 13:40 Labs: Laboratory Results - last 24 hr 05/13/21 05/13/21 05/13/21 13:40 13:40 13:40 WBC 5.4 RBC 4.75 Hgb 14.4 Hct 42.7 MCV 90.0 MCH 30.4 MCHC 33.8 RDW 14.7 Plt Count 284 Neut % (Auto) 68.7 Lymph % (Auto) 16.6 L [place] % (Auto) 11.8 Eos % (Auto) 2.3 Baso % (Auto) 0.6 Neut # (Auto) 3700 Lymph # (Auto) 900 L [place] # (Auto) 600 Eos # (Auto) 100 Baso # (Auto) 0 Sodium 138 Potassium 3.6 Chloride 105 Carbon Dioxide 27 BUN 13 Creatinine 0.88 Estimated GFR > 60.0 BUN/Creatinine Ratio 14.8 Glucose 113 H Calcium 9.6 Total Bilirubin 1.1 AST 47 ALT 45 Alkaline Phosphatase 78 Total Protein 6.9 Albumin 4.2 Globulin 2.7 Albumin/Globulin Ratio 1.6 Lipase 123 Urine Color Urine Appearance Urine pH Ur Specific [place] Urine Protein Urine Glucose (UA) Urine Ketones Urine Occult Blood Urine Nitrate Urine Bilirubin Urine Urobilinogen Ur Leukocyte Esterase Urine RBC Urine WBC Ur Squamous Epith Cells Amorphous Sediment Urine Bacteria Urine Mucus Ur Culture Indicated? SARS-CoV-2 (PCR) Negative 05/13/21 14:25 WBC RBC Hgb Hct MCV MCH MCHC RDW Plt Count Neut % (Auto) Lymph % (Auto) [place] % (Auto) Eos % (Auto) Baso % (Auto) Neut # (Auto) Lymph # (Auto) [place] # (Auto) Eos # (Auto) Baso # (Auto) Sodium Potassium Chloride Carbon Dioxide BUN Creatinine Estimated GFR BUN/Creatinine Ratio Glucose Calcium Total Bilirubin AST ALT Alkaline Phosphatase Total Protein Albumin Globulin Albumin/Globulin Ratio Lipase Urine Color Yellow Urine Appearance Clear Urine pH 6.5 Ur Specific [place] 1.015 Urine Protein Negative Urine Glucose (UA) Negative Urine Ketones Trace H Urine Occult Blood 1+ H Urine Nitrate Negative Urine Bilirubin Negative Urine Urobilinogen 0.2 Ur Leukocyte Esterase Negative Urine RBC 1-5/hpf Urine WBC 0-1/hpf Ur Squamous Epith Cells 1-5 /hpf Amorphous Sediment 1+ Urine Bacteria Occasional (0-1) Urine Mucus 1+ H Ur Culture Indicated? Cult not indicated SARS-CoV-2 (PCR) Assessment & Plan Assessment and plan (1) Sigmoid volvulus: Status: Acute Assessment & Plan narrative: 80 year old man with an acute sigmoid volvulus no peritonitis. -Sigmoidoscopy for detorsion now If detorsion is successful begin bowel prep for sigmoid colectomy tomorrow If detorsion is unsuccessful will require a colectomy with end colostomy Procedural risks including bleeding, intestinal perforation unsuccessful detorsion were discussed. Questions answered he is in agreement with this plan. Time Spent With Patient Critical Care time: I spent a total of [] minutes of critical care time on this patient's care today; this time is exclusive of procedural time. Quality VTE Deep Vein Thrombosis/Pulmonary Embolism Present on Admission: No
[2021-05-13] MEDS: LACTATED RINGERS 1,000 ML 150 ML IV ×2 (17:55→20:28)
--- NOTE | 2021-05-13 18:05 | PC.NURSE ---
Patient taken to OR at 1730
--- NOTE | 2021-05-13 18:26 | DI.RAD.S_ITS ---
PROCEDURE: XR ABDOMEN 1V INDICATIONS: detorsion of sigmoid volvulus TECHNIQUE: One view of the abdomen acquired. COMPARISON: [facility], CT, CT ABDOMEN PELVIS W CON, 05/13/2021, 14:44. [facility], CR, XR ABDOMEN 1V, 05/13/2021, 13:43. FINDINGS: Surgical changes and devices: A rectal tube extends superiorly to the level of the bottom of L4. Bowel: Bowel gas pattern is normal. Soft tissues: No suspicious abdominal calcifications. Visualized solid organ contours appear normal in size. Bones: No suspicious bony lesions. IMPRESSION: Rectal tube as described above. Findings were discussed with Dr. Krause, who inserted the rectal tube after decompressing a sigmoid volvulus. No residual dilated sigmoid noted. Dictated by: Trae Márquez M.D. on 05/13/2021 at 19:12 Approved by: Trae Márquez M.D. on 05/13/2021 at 19:17
--- NOTE | 2021-05-13 18:43 | PM.OP.COLON ---
Operative Date/Time/Diagnoses Date of procedure: 05/13/21 Time of procedure: 18:44 Pre-op diagnosis: sigmoid volvulus Post-op diagnosis: same Procedure & Clinicians Study performed: sigmoidoscopy with endoscopic detorsion of sigmoid volvulus Same procedure as scheduled: Yes Indications: sigmoid volvulus without peritonitis Surgeon: Juan Krause Procedure Notes Procedure in detail: Patient was brought to the operating room placed supine on the table. General anesthesia was induced she was intubated with an endotracheal tube. Reason placement to the left lateral decubitus position. A time-out was performed. The colonoscope was then inserted into the is an advanced forward. The sigmoid volvulus was carefully entered and scope was gently advanced. Scope passed through the entirety of volvulus into the proximally dilated segment of colon and the mucosa here was without evidence of ischemia. There was a gush of air and there was formed stool beyond the volvulus. The scope was carefully withdrawn a red rubber tube was then placed into the rectum and secured to the adjacent skin. Specimen(s): none sent Complications: none Impression: Endoscopic detorsion of sigmoid volvulus Post-procedure Plan for aftercare: Return to [facility] for bowel prep plan for sigmoid colectomy tomorrow
--- NOTE | 2021-05-13 18:55 | SUR.PHASEI ---
Dr Krause to bedside to speak to patient about procedure and plan for surgery tommorrow
[2021-05-13] MEDS: ALBUTEROL 2.5 MG/3 ML NEB (ADULT) INH (20:05)
[2021-05-13] MEDS: PEG3350/SOD SULF,BICARB,CL/KCL 4,000 ML SOLUTION 4000 ML PO (20:25)
[2021-05-13] MEDS: metroNIDAZOLE 500 MG TABLET PO (20:33)
[2021-05-14] VITALS (14 sets, daily range): BP systolic 99–129; BP diastolic 52–65; PULSE 51–91; RESP 14–18; TEMP 36.2–37.2; O2SAT 91–98; BMI 20.6
--- NOTE | 2021-05-14 | PATH_ITS ---
[facility] Accession Number: [id number] . 01 Material submitted: . sigmoid colon - SIGMOID COLON . 02 Diagnosis: Sigmoid Colon, Sigmoidectomy: Segment of colon with no diagnostic abnormality; please see comment. Negative for features of mucosal ischemia. Negative for dysplasia or malignancy. Histologically viable margins of resection. [facility] 05/19/2021 1609 Local . 02 Comment: Sections are of colonic tissue with no significant diagnostic abnormality, consistent with the clinical history of acute volvulus. . 02 Electronically signed: . Rey Fairchild MD, PhD, Pathologist NPI- [id number] . 01 Gross description: . The specimen is received in formalin, labeled sigmoid colon and consists of a 28 cm in length portion of colon with two stapled margins. The external diameter ranges from 3.2 cm at one end to 7.0 cm at the opposing end. The serosa is diez-pink and smooth, and there is a moderate amount of attached adipose tissue. Opening reveals a diez-pink mucosa with normal to attenuated mucosal folds. The wall thickness ranges from 0.1-0.3 cm. No lymph nodes are identified in the attached adipose tissue. Inventory Control Clerk sections are submitted. . A1: Inventory Control Clerk stapled margins (blue and black). A2-A3: Inventory Control Clerk colon. A4: Inventory Control Clerk cross sections of vessels. ([id number]) /MRV 05/15/2021 1227 Local . 02 Pathologist provided ICD-10: K56.2 . 02 CPT . 051091 Performed at: 01 [facility] [address] [facility], [place], [place] [id number] MD Eriberto Nina MD Phone: [phone] Performed at: 02 [facility] [id number] [place] [id number] MD Mirta Meneses MD Phone: [phone]
[2021-05-14] MEDS: LACTATED RINGERS 1,000 ML 150 ML IV ×3 (02:54→23:25)
[2021-05-14 06:21] LABS: Add Manual Diff / Slide Review NO; Basophils Absolute Auto 0 /uL (0-100); Basophils Percent Auto 0.7 % (0-2); Eosinophils Absolute Auto 200 /uL (0-450); Eosinophils Percent Auto 3.2 % (2-4); Hematocrit 36.2 % (41-53); Hemoglobin 12.2 g/dL (13.5-17.5); Lymphocytes Absolute Auto 1300 /uL (1100-4500); Lymphocytes Percent Auto 22.3 % (25-40); Mean Corpuscular HGB Conc 33.6 % (30-36); Mean Corpuscular Hemoglobin 30.2 PG (26-34); Monocytes Absolute Auto 800 /uL (0-900); Monocytes Percent Auto 13.4 % (3-14); Neutrophils Absolute Auto 3600 /uL (1500-7000); Neutrophils Percent Auto 60.4 % (50-75); Platelet Count 236 X10^3/uL (150-400); Red Blood Cell Count 4.03 X10^6/uL (4.5-5.9); Red Cell Distribution Width 14.4 % (11.6-14.8); White Blood Cell Count 5.9 X10^3/uL (4.5-11.0)
[2021-05-14 06:31] LABS: BUN Creatinine Ratio 11.7 (6-22); Blood Urea Nitrogen 9 mg/dL (9-20); Calcium 8.9 mg/dL (8.4-10.2); Carbon Dioxide 27 mmol/L (22-32); Chloride 108 mmol/L (98-107); Estimated Glomerular Filt Rate > 60.0 mL/min (>60); Glucose 102 mg/dL (80-110); HEMOLYSIS < 15 (0-50); Potassium 3.5 mmol/L (3.4-5.1); Sodium 136 mmol/L (137-145)
[2021-05-14] MEDS: NEOMYCIN 500 MG TABLET 1000 MG PO (08:00)
[2021-05-14] MEDS: BISACODYL 5 MG TABLET 10 MG PO (10:19)
[2021-05-14] MEDS: metroNIDAZOLE 500 MG TABLET PO (10:20)
--- NOTE | 2021-05-14 10:55 | CM.DANOTE ---
DCP: Case received, EMR reviewed and met with patient. Introduced self and role. Was able to obtain information regarding patient's baseline activity status prior to hospitalization. DCP assessment completed with information currently available. Patient is an 80 year old male who admitted yesterday afternoon to the care of the hospitalist team. PCP: Dr. Mascorro. Payer: confirmed: Medicare/Commercial Insurance. Patient came to the hospital via private vehicle secondary to him feeling like he was distended, having an obstruction. Patient had some nausea and vomiting as well. Patient was diagnosed with sigmoid volvulus, and is scheduled for surgery this pm at approximately 1600. Met with patient in his room. He is pleasant, alert and oriented. He was sitting up in bed brushing his teeth, also, taking bowel prep for his procedure this pm. Patient resides here in [place] with his spouse, Peggy. At his baseline, he is active, he and his spouse walk daily. He did state that he does have balance issues, fell several weeks ago, and lost one of his teeth. He is currently going to [facility] for outpatient physical therapy. P: DCP to continue to follow for any needs. Patient should be able to go home when he is medically stable. Dinora Robles RN/Pillow Cleaner Discharge Planning/Care Management Advanced directive, confirm from FAMILY Start: 05/13/21 17:15 Freq: Q24H Status: Active Protocol: Document 05/13/21 17:31 SFP (Rec: 05/13/21 17:32 SFP [id number]) Advance Directive, confirm on record Time 17:31 Person contacted peggy Copy received No CM Discharge Assessment Start: 05/14/21 10:54 Freq: Status: Active Protocol: Document 05/14/21 10:54 (Rec: 05/14/21 10:55 [id number]) Discharge Planning Assessment Assigned Cell Efficiency Supervisor Dinora Robles RN/Pillow Cleaner Advance Directives? Yes Advance Directives on File No History Provided By Patient,Medical Record Prior Living Arrangements House Household Members spouse Type of transporation used prior to Drives own vehicle admit Willing to Return to Facility? No Independent with ADL's Yes Is patient alert and oriented? Yes Caregiver for Another No Barriers to Discharge No Discharge Plan Home Transportation Arrangement Spouse Referrals Initiated None needed Whiteboard Updated in Patient Room with Yes name and ext. # of Cell Efficiency Supervisor Review Status In Process Next Review Type Continued Stay Review
--- NOTE | 2021-05-14 12:38 | P.PN_ITS ---
Subjective Subjective Date Patient Seen: 05/14/21 Time Patient Seen: 12:38 Interval history: Successful detorsion of sigmoid volvulus last night. Bowel prep started. Feeling well today., Exam Vital Signs (past 8 hours): - 05/14/21 05:00 05/14/21 08:00 Temperature 98 F 97.9 F Pulse Rate 67 56 L Respiratory Rate 18 18 Blood Pressure 99/56 L 129/60 Pulse Oximetry 96 97 Oxygen Delivery Method Room Air Oxygen Flow Rate 0 Narrative Exam Narrative: Gen-Adult male alert and oriented Abdomen-Soft non tender non distended Objective Labs Result Diagrams: 05/14/21 05:50 05/14/21 05:50 Labs: Laboratory Results - last 24 hr 05/13/21 05/13/21 05/13/21 13:40 13:40 13:40 WBC 5.4 RBC 4.75 Hgb 14.4 Hct 42.7 MCV 90.0 MCH 30.4 MCHC 33.8 RDW 14.7 Plt Count 284 Neut % (Auto) 68.7 Lymph % (Auto) 16.6 L [place] % (Auto) 11.8 Eos % (Auto) 2.3 Baso % (Auto) 0.6 Neut # (Auto) 3700 Lymph # (Auto) 900 L [place] # (Auto) 600 Eos # (Auto) 100 Baso # (Auto) 0 Sodium 138 Potassium 3.6 Chloride 105 Carbon Dioxide 27 BUN 13 Creatinine 0.88 Estimated GFR > 60.0 BUN/Creatinine Ratio 14.8 Glucose 113 H Calcium 9.6 Total Bilirubin 1.1 AST 47 ALT 45 Alkaline Phosphatase 78 Total Protein 6.9 Albumin 4.2 Globulin 2.7 Albumin/Globulin Ratio 1.6 Lipase 123 Urine Color Urine Appearance Urine pH Ur Specific [place] Urine Protein Urine Glucose (UA) Urine Ketones Urine Occult Blood Urine Nitrate Urine Bilirubin Urine Urobilinogen Ur Leukocyte Esterase Urine RBC Urine WBC Ur Squamous Epith Cells Amorphous Sediment Urine Bacteria Urine Mucus Ur Culture Indicated? SARS-CoV-2 (PCR) Negative 05/13/21 05/14/21 05/14/21 14:25 05:50 05:50 WBC 5.9 RBC 4.03 L Hgb 12.2 L Hct 36.2 L MCV 90.0 MCH 30.2 MCHC 33.6 RDW 14.4 Plt Count 236 Neut % (Auto) 60.4 Lymph % (Auto) 22.3 L [place] % (Auto) 13.4 Eos % (Auto) 3.2 Baso % (Auto) 0.7 Neut # (Auto) 3600 Lymph # (Auto) 1300 [place] # (Auto) 800 Eos # (Auto) 200 Baso # (Auto) 0 Sodium 136 L Potassium 3.5 Chloride 108 H Carbon Dioxide 27 BUN 9 Creatinine 0.77 Estimated GFR > 60.0 BUN/Creatinine Ratio 11.7 Glucose 102 Calcium 8.9 Total Bilirubin AST ALT Alkaline Phosphatase Total Protein Albumin Globulin Albumin/Globulin Ratio Lipase Urine Color Yellow Urine Appearance Clear Urine pH 6.5 Ur Specific [place] 1.015 Urine Protein Negative Urine Glucose (UA) Negative Urine Ketones Trace H Urine Occult Blood 1+ H Urine Nitrate Negative Urine Bilirubin Negative Urine Urobilinogen 0.2 Ur Leukocyte Esterase Negative Urine RBC 1-5/hpf Urine WBC 0-1/hpf Ur Squamous Epith Cells 1-5 /hpf Amorphous Sediment 1+ Urine Bacteria Occasional (0-1) Urine Mucus 1+ H Ur Culture Indicated? 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 Successful detorsion last night and bowel prepped for sigmoid colectomy today. I discussed the operative details with the patient and explained that my surgery partner will be assisting. We discussed operative risks including bleeding, infection, damage to surrounding structures, anastamotic leak, hernia formation. Questions answered in agreement with this paln. Time Spent With Patient Critical Care time: I spent a total of [] minutes of critical care time on this patient's care today; this time is exclusive of procedural time. Quality VTE Deep Vein Thrombosis/Pulmonary Embolism Present on Admission: No
--- NOTE | 2021-05-14 13:27 | SUR.OPER ---
Lithotomy on padded OR bed, head on pillow, arms secured on padded arm boards at <90 degrees abduction. Legs secured in padded yellow fins stirrups.
[2021-05-14] MEDS: PIPERACILLIN/TAZO 4.5 GM in SODIUM CHLORIDE 0.9% 100 ML 200 ML IV (14:20)
--- NOTE | 2021-05-14 14:48 | SUR.OPER ---
Lithotomy on padded OR bed, head on pillow, arms secured on padded arm boards at <90 degrees abduction. Legs secured in padded yellow fins stirrups.
[2021-05-14] MEDS: BUPIVACAINE LIPOSOME 266 MG/20 ML VIAL INJ (15:29)
[2021-05-14] MEDS: BUPIVACAINE 0.25% (PF) VIAL 30 ML INJ (15:47)
--- NOTE | 2021-05-14 16:10 | P.OP_ITS ---
Operative Date/Time/Diagnoses Date of procedure: 05/14/21 Time of procedure: 16:10 Pre-op diagnosis: Sigmoid volvulus Post-op diagnosis: same Procedure & Clinicians Procedure: Sigmoid colectomy Same procedure as scheduled: Yes Indications: Recurrent sigmoid volvulus. Patient was admitted to the hospital with a sigmoid volvulus which was endoscopically de torsed. He was bowel prepped in taken to the operating room for a sigmoid colectomy Surgeon: Juan Krause [employer] Technician: Henrry Lyn Anesthesia Type: General Operative Notes Findings: Redundant lax sigmoid colon Specimen(s): other (Sigmoid colon) Estimated Blood Loss (mL): 20 Procedure in detail: Patient was brought to the operating room placed supine on the table. Bilateral lower extremity compression devices were applied. Anesthesia was induced he was intubated with an endotracheal tube. He was then placed into lithotomy position appropriately padded. He was prepped and draped in sterile fashion. A lower midline incision was made the abdomen was entered atraumatically. Upon entry to the abdomen the sigmoid colon was evident notable for its redundancy and laxity. Inspection of the abdomen was made the small bowel was run in its entirety and the colon was followed from the cecum to the descending colon and sigmoid. The cecum and the transverse were quite redundant as well. The rectum was decompressed in comparison to the descending colon. The sigmoid colon was divided from the descending colon by making a hole in the mesentery and then dividing with a OLINDA stapler blue load 75 mm. The sigmoid was then divided from the rectum in the same fashion. The mesentery to the specimen was divided using the Thunderbeat device. Mesenteric line was inspected for hemostasis. A [id number] anastomosis was formed. Colotomy was made on each limb and then a common channel was formed with the 3rd firing of the OLINDA stapler. Inspection within the anastomosis demonstrated that it was hemostatic and widely patent. The limbs were well perfused and joint without tension or twisting. Common opening was closed in a running fashion using 3-0 PDS suture and then imbricated in a 2nd layer using silk suture. The anastomosis was tested it was widely patent and without leak. The abdomen was irrigated. The mesenteric defect was closed with a running Vicryl suture. The abdomen was closed with a running PDS suture followed by Vicryl and Monocryl. The skin was sealed with Dermabond. Complications: none Post-operative Condition: stable Disposition: Acute Care
[2021-05-14] MEDS: HYDROMORPHONE 0.5 MG INJ IV (17:28)
--- NOTE | 2021-05-14 19:20 | PC.NURSE ---
Pt A&Ox3 VSS, afebrile on RA. He is transported to [facility] approximately 1330 this afternoon and returned from PACU at 1700. LR at 150 ml/hr, alfaro catheter in place. VSS, afebrile on RA HR 50's. He denies n/v. Bulky dressing to mid abdomen c/d/i. hypoactive BS noted. Pt reported pain increasing to 6/10 this evening, and medicated with PRN 0.5mg dilauded IV. Pt resting quietly afterwords, easily awakened. Continuous monitoring.
[2021-05-15] MEDS: HYDROMORPHONE 0.5 MG INJ IV ×2 (03:27→15:56)
--- NOTE | 2021-05-15 03:46 | PC.NURSE ---
At approx 0320, coordinator was informed that 911 had been called from the hospital. This patient used his cellphone to contact 911. Patient informed staff that he was unable to contact staff d/t inability to find the call button remote. No staff heard or saw a call light, including SPECIAL PROCEDURE TECH stationed near room. This RN was notified of pt's call to local authorities. This RN assessed patient- alert and oriented, denied confusion, c/o pain 7/10 in abdomen. Pt informed this RN that he did not call out for help or use cell phone to contact hospital or use room phone to contact staff. Pt medicated appropriately for pain. This RN made sure that call pichardo was secured near patient and that patient was educated on appropriate methods of contacting staff for any need. Pt demonstrated ability to use the call light in front of this RN. Will continue to monitor.
[2021-05-15 04:00] VITALS: BP 109/58; PULSE 62; RESP 18; TEMP 36.6; O2SAT 93
[2021-05-15] MEDS: OXYCODONE IR 5 MG TABLET PO ×3 (05:46→21:22)
[2021-05-15] MEDS: ACETAMINOPHEN 325 MG TABLET 650 MG PO ×2 (05:46→13:45)
[2021-05-15 06:00] LABS: Add Manual Diff / Slide Review NO; Basophils Absolute Auto 100 /uL (0-100); Basophils Percent Auto 0.6 % (0-2); Eosinophils Absolute Auto 0 /uL (0-450); Hematocrit 35.9 % (41-53); Hemoglobin 12.1 g/dL (13.5-17.5); Lymphocytes Absolute Auto 800 /uL (1100-4500); Lymphocytes Percent Auto 9.6 % (25-40); Mean Corpuscular HGB Conc 33.7 % (30-36); Mean Corpuscular Hemoglobin 30.4 PG (26-34); Mean Corpuscular Volume 90.1 fL (80-100); Monocytes Absolute Auto 1000 /uL (0-900); Monocytes Percent Auto 11.6 % (3-14); Neutrophils Absolute Auto 6800 /uL (1500-7000); Neutrophils Percent Auto 78.2 % (50-75); Platelet Count 225 X10^3/uL (150-400); Red Blood Cell Count 3.98 X10^6/uL (4.5-5.9); Red Cell Distribution Width 14.4 % (11.6-14.8); White Blood Cell Count 8.7 X10^3/uL (4.5-11.0)
[2021-05-15 06:09] LABS: BUN Creatinine Ratio 15.4 (6-22); Blood Urea Nitrogen 12 mg/dL (9-20); Calcium 8.3 mg/dL (8.4-10.2); Carbon Dioxide 24 mmol/L (22-32); Chloride 107 mmol/L (98-107); Estimated Glomerular Filt Rate > 60.0 mL/min (>60); Glucose 123 mg/dL (80-110); HEMOLYSIS < 15 (0-50); Potassium 3.9 mmol/L (3.4-5.1); Sodium 133 mmol/L (137-145)
[2021-05-15 09:00] VITALS: BP 103/55; PULSE 70; RESP 16; TEMP 37.2; O2SAT 95
[2021-05-15] MEDS: LACTATED RINGERS 1,000 ML 100 ML IV (10:23)
--- NOTE | 2021-05-15 12:27 | OT.IP.EVAL ---
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) Surgery Performed Operation Date: 05/13/21 17:45 Actual Procedures p Flexible Sigmoidoscopy, placement of rectal tube - Juan Krause MD Operation Date: 05/13/21 18:15 <No data on this case meets the specified criteria> Operation Date: 05/14/21 15:15 Actual Procedures p Sigmoid Colon Resection - Juan Krause MD Past Medical History (Last Reviewed 05/13/21 @ 13:52 by Nolberto Rivas PA-C) Acute lymphangitis of right upper extremity Occupational Therapy Inpatient Evaluation/Re-Eval M1 PT/OT-IP Prior Functional Status Start: 05/15/21 12:52 Freq: NEEDED Status: Active Protocol: Document 05/15/21 12:52 [facility] (Rec: 05/15/21 13:06 [facility] [id number]) Medical Review Prior Functional Status Communication Independent Mobility and Gait Pt states has been going to [facility] for PT for balance issues and typically uses 2 walking sticks when outside does not us any devices in the house. Activities of Daily Living and IADL's Per pt completely independent with all ADl and IADl needs. Social History Household Members spouse Living Arrangements House Number of Floors (Floors) Two Floors Number of Stairs To Enter/Railing? 2 steps when the garage with no railing. Pt has a spiral stair case with right rail going down to his office areas that he uses daily. Home Environment Standard Height Toilet,Walk in Shower Home Equipment Hand Held Shower,Vp Integration Additional Social History Comment Pt has a built in shower seat in which he does not use to sit for showering. M2 OT-IP Current Condition Start: 05/15/21 12:52 Freq: Status: Active Protocol: Document 05/15/21 12:52 [facility] (Rec: 05/15/21 13:06 [facility] [id number]) Occupational Therapy Current Condition Current Condition Evaluation Date 05/15/21 Treatment Diagnosis S/p sigmoid colectomy, decreased mobility Diagnosis Onset Date 05/13/21 Post Operative Precautions Abdominal Surgery Precautions Log Roll,Lifting Restrictions, Gait Belt above Incisional Area M3 OT- IP Subjective and Pain Start: 05/15/21 12:52 Freq: Status: Active Protocol: Document 05/15/21 12:52 [facility] (Rec: 05/15/21 13:06 [facility] [id number]) OT- Subjective Occupational Therapy Visit Type Type Initial Evaluation Visit Start Time 11:52 Visit Stop Time 11:27 Total Visit Minutes 35 Occupational Therapy Visit Comments Patient Comments Pt agreed to get up for OT eval. Patient/Caregiver Goals TO go home. OT Pain Assessment Pain When Pain Assessed At Rest Pain Present Pain Present Denied Pain M4 OT- IP ADL's Start: 05/15/21 12:52 Freq: Status: Active Protocol: Document 05/15/21 12:52 [facility] (Rec: 05/15/21 13:06 [facility] [id number]) OT [id number] Comments OT Self-Feeding Comments NOt at meal time. OT ADL-Grooming General Evaluation Grooming Ability Independent OT ADL-Oral Care General Eval Oral Care Ability Standby Assistance OT ADL-Dressing General Eval Lower Body Dressing Ability Standby Assistance Comments OT Dressing Comments Pt able to vu doff his socks with increased time by bringing his foot up to the edge of the bed. Pt states initially will not wear socks or that his can assist him. OT ADL-Toileting General Evaluation Toileting Ability Total Assistance Comments OT Toileting Comments Hoover in. OT ADL-Bathing Comments OT Bathing Comments Not performed. M5 OT- IP IADL's Start: 05/15/21 12:52 Freq: Status: Active Protocol: Document 05/15/21 12:52 [facility] (Rec: 05/15/21 13:06 [facility] [id number]) OT-Instrumental Activities of Daily Living Home Safety Awareness Home Safety Comments Pt's to be home to assist ot for all his needs. M6 OT- IP Functional Cognition Start: 05/15/21 12:52 Freq: Status: Active Protocol: Document 05/15/21 12:52 [facility] (Rec: 05/15/21 13:06 [facility] [id number]) Cognitive Factors Limiting Selfcare Function Cognitive Ability Level of Alertness Alert Patient Orientation Name,Place,Situation Attention Span Ability Capable of Focused Attention, Capable of Sustained Attention Ability to Follow Commands Able to Follow One Step Commands Safety Awareness Decreased Ability to Apply Precautions,Underestimates Need for Assistance Cognitive Comments Cognitive Assessment Comments Pt a bit impulsive and needing initial cues and reminders for abdominal precautions. OT- Vision and Hearing OT- Vision Assessment Visual Acuity Glasses All The Time M7 OT- IP Mobility and Balance Start: 05/15/21 12:52 Freq: Status: Active Protocol: Document 05/15/21 12:52 [facility] (Rec: 05/15/21 13:06 [facility] [id number]) OT- Bed Mobility Assessment Rolling Type of Rolling Roll to Left Level of Assistance Minimal Assistance Supine to Sit Supine to Sit Assist Moderate Assistance,1 Person Assistance OT-Transfer Assessment Sit to and From Stand Sit to and from Stand Contact Guard Assistance Transfers Transfer Ability Contact Guard Assistance Technique Transfer Destination Bed,Chair Transfer Technique Stand Step Pivot Devices Transfer Assistive Devices Gait Belt,Front Wheeled Walker Comments Mobility Comments MODA to help get form side lying to seated position. Pt states a little whoozy but BP remained stable. CGA to stand to FWW and SBA/CGA with FWW. Attempted to take a few steps without the FWW and pt more unsteady and JENNIFER. Suggested for now best to use FWW for now. OT- Balance Assessment Sitting Balance and Reactions Static Sitting Balance Ability Normal Dynamic Sitting Balance Ability Good Standing Balance and Reactions Static Standing Balance Ability Good Dynamic Standing Balance Ability Fair M8 OT- IP Objective Assessments Start: 05/15/21 12:52 Freq: Status: Active Protocol: Document 05/15/21 12:52 [facility] (Rec: 05/15/21 13:06 [facility] [id number]) OT Gross Range of Motion Upper Extremity Range of Motion Assessment Within Functional Limits OT-Muscle Tone Assessment Muscle Tone WNL Yes M9 OT- IP Assessment and Plan Start: 05/15/21 12:52 Freq: Status: Active Protocol: Document 05/15/21 12:52 [facility] (Rec: 05/15/21 13:06 [facility] [id number]) OT Summary Assessment and Plan Potential Rehabilitation Potential Good Analytic Complexity at Evaluation Low Summary OT Impairments Pain,Balance,Functional Mobility,Dressing,Toileting, Bathing,Activity Tolerance Progress Towards Goals Progressing Toward Goals Assessment Summary Pt low complexity and and main barriers are decreased activity tolerance, dynamic balance, steps and now needing increased time and some assist for ADl and mobility needs. Pt has a supportive to be able to assist at home. Pt to go home when medically stable. Goals Self-Feeding Goal Independent Grooming Goal Independent Dressing Goal Independent Toileting Goal Independent Bathing Goal Independent Toilet Transfer Goal Independent Shower Transfer Goal Independent Days to Meet Goals 7 Frequency of Treatment Frequency Of Treatment Once a Day Treatment Plan OT Treatment Plan ADL Training,Functional Mobility,Patient/Family Education,Discharge Planning Other Treatment Recommendations and Next shower if stil here Treatment Focus Discharge Recommendations OT Discharge Recommendations Home with Assistance Home Equipment Needs Pendng progress, pt may need fww and shower chair Transportation Needs at Discharge Private Vehicle
[2021-05-15 14:20] VITALS: BP 102/56; PULSE 66; RESP 18; TEMP 36.8; O2SAT 95
--- NOTE | 2021-05-15 15:30 | PM.PN.1 ---
Subjective Subjective Date Patient Seen: 05/15/21 Interval history: No complaints of nausea or vomiting No reports of flatus or bowel movements yet He would like to eat Exam Vital Signs (past 8 hours): - 05/15/21 09:00 Temperature 99.0 F Pulse Rate 70 Respiratory Rate 16 Blood Pressure 103/55 L Pulse Oximetry 95 Oxygen Delivery Method Room Air Oxygen Flow Rate 0 Narrative Exam Narrative: No acute distress Abdomen soft, nontender Dressings in place over midline wound Objective Labs Result Diagrams: 05/15/21 05:35 05/15/21 05:35 Labs: Laboratory Results - last 24 hr 05/15/21 05/15/21 05:35 05:35 WBC 8.7 RBC 3.98 L Hgb 12.1 L Hct 35.9 L MCV 90.1 MCH 30.4 MCHC 33.7 RDW 14.4 Plt Count 225 Neut % (Auto) 78.2 H Lymph % (Auto) 9.6 L [place] % (Auto) 11.6 Eos % (Auto) 0.0 L Baso % (Auto) 0.6 Neut # (Auto) 6800 Lymph # (Auto) 800 L [place] # (Auto) 1000 H Eos # (Auto) 0 Baso # (Auto) 100 Sodium 133 L Potassium 3.9 Chloride 107 Carbon Dioxide 24 BUN 12 Creatinine 0.78 Estimated GFR > 60.0 BUN/Creatinine Ratio 15.4 Glucose 123 H Calcium 8.3 L PFSH Medical History Acute lymphangitis of right upper extremity Social History household members: spouse Smoking Status: Former smoker Assessment & Plan Assessment and plan (1) Postoperative examination: Status: Acute Plan Advance diet as tolerates Continue [place] catheter for an additional day because he had significant edema in the pelvis and he has had history of urinary retention Time Spent With Patient Critical Care time: I spent a total of [] minutes of critical care time on this patient's care today; this time is exclusive of procedural time. Quality VTE Deep Vein Thrombosis/Pulmonary Embolism Present on Admission: No
[2021-05-15 20:08] VITALS: BP 116/63; PULSE 70; RESP 16; TEMP 36.6; O2SAT 96
[2021-05-15 21:00] VITALS: PULSE 60; RESP 16; O2SAT 93
[2021-05-15] MEDS: BUDESONIDE 0.5 MG/2 ML NEB INH (21:00)
[2021-05-16] VITALS (9 sets, daily range): BP systolic 115–141; BP diastolic 69–86; PULSE 71–100; RESP 15–18; TEMP 36.2–37.1; O2SAT 93–99
[2021-05-16] MEDS: ACETAMINOPHEN 325 MG TABLET 650 MG PO ×2 (01:20→08:56)
[2021-05-16 04:58] LABS: Add Manual Diff / Slide Review NO; Basophils Absolute Auto 0 /uL (0-100); Basophils Percent Auto 0.3 % (0-2); Eosinophils Absolute Auto 100 /uL (0-450); Eosinophils Percent Auto 1.1 % (2-4); Hematocrit 42.1 % (41-53); Hemoglobin 14.3 g/dL (13.5-17.5); Lymphocytes Absolute Auto 700 /uL (1100-4500); Lymphocytes Percent Auto 7.6 % (25-40); Mean Corpuscular HGB Conc 33.9 % (30-36); Mean Corpuscular Hemoglobin 30.5 PG (26-34); Mean Corpuscular Volume 90.1 fL (80-100); Monocytes Absolute Auto 1000 /uL (0-900); Neutrophils Absolute Auto 8000 /uL (1500-7000); Platelet Count 246 X10^3/uL (150-400); Red Blood Cell Count 4.67 X10^6/uL (4.5-5.9); Red Cell Distribution Width 14.5 % (11.6-14.8); White Blood Cell Count 9.9 X10^3/uL (4.5-11.0)
[2021-05-16 05:06] LABS: BUN Creatinine Ratio 13.4 (6-22); Blood Urea Nitrogen 11 mg/dL (9-20); Calcium 9.4 mg/dL (8.4-10.2); Carbon Dioxide 27 mmol/L (22-32); Chloride 104 mmol/L (98-107); Estimated Glomerular Filt Rate > 60.0 mL/min (>60); Glucose 130 mg/dL (80-110); HEMOLYSIS 32 (0-50); Potassium 3.9 mmol/L (3.4-5.1); Sodium 134 mmol/L (137-145)
[2021-05-16] MEDS: ONDANSETRON 4 MG/2 ML INJ IV ×2 (06:27→23:53)
[2021-05-16] MEDS: BUDESONIDE 0.5 MG/2 ML NEB INH (07:54)
--- NOTE | 2021-05-16 08:31 | CM.MNRNOTE ---
Addendum entered by Aggie Roa R.N. 05/16/21 18:33: Patients dressing to lower ml saturated with ss drainage. Dressing taken off and changed to allevyn dressings. Patients skin very sensitive to OR tape, taken off slowly and patient obtained two small skin tears to the left side of his incision and one small skin tear to the r.side of his incision. Pubic area was shaved prior to surgery and area also red. Changed dressing to a coversite and covered 3 small skin tears with allevyn foam dressings. Addendum entered by Aggie Roa R.N. 05/16/21 16:56: Patient is resting, given simethicone for gas pains, patient has been drinking water, crackers, and broth today. He is not interested in solid foods yet. He worked with physical therapy and tolerated well. Dr. Krause is aware that patient has passed some light pink colored blood in his stool. Patient has been having small loose stools, last stool did not appear to have any blood in it. Patient voices no complaints at this time. Original Note: Assess- Patients abdomen is distended, he states that he is having some discomfort, but is tolerating. Will check to see what pain meds patient has for discomfort of 3 to 4/10. His abdomen is distended and firm. CLAIMS SPECIALIST states that he is having liquid brown stool with a color card maker pink tinge that may be some blood. Will let surgeon know. He is up with a one person assist and walker. Patient refused his breakfast, and is tolerating some chicken broth.
[2021-05-16] MEDS: SODIUM CHLORIDE 0.9% FLUSH 10 ML IV ×2 (08:57→20:57)
--- NOTE | 2021-05-16 11:33 | P.PN_ITS ---
Exam Vital Signs (past 8 hours): - 05/16/21 04:17 05/16/21 08:00 Temperature 98.4 F 97.6 F Pulse Rate 100 H 93 H Respiratory Rate 15 18 Blood Pressure 122/69 115/80 Pulse Oximetry 94 96 Oxygen Delivery Method Room Air Oxygen Flow Rate 0 Objective Labs Result Diagrams: 05/16/21 04:30 05/16/21 04:30 Labs: Laboratory Results - last 24 hr 05/16/21 05/16/21 04:30 04:30 WBC 9.9 RBC 4.67 Hgb 14.3 Hct 42.1 MCV 90.1 MCH 30.5 MCHC 33.9 RDW 14.5 Plt Count 246 Neut % (Auto) 81.0 H Lymph % (Auto) 7.6 L [place] % (Auto) 10.0 Eos % (Auto) 1.1 L Baso % (Auto) 0.3 Neut # (Auto) 8000 H Lymph # (Auto) 700 L [place] # (Auto) 1000 H Eos # (Auto) 100 Baso # (Auto) 0 Sodium 134 L Potassium 3.9 Chloride 104 Carbon Dioxide 27 BUN 11 Creatinine 0.82 Estimated GFR > 60.0 BUN/Creatinine Ratio 13.4 Glucose 130 H Calcium 9.4 PFSH Medical History Acute lymphangitis of right upper extremity Social History household members: spouse Smoking Status: Former smoker Assessment & Plan Post-op Postoperative Procedures: Procedures Operation Date: 05/13/21 17:45 Actual Procedure Side Surgeon p Flexible Sigmoidoscopy, placement of rectal tube Juan Krause MD Operation Date: 05/13/21 18:15 <No data on this case meets the specified criteria> Operation Date: 05/14/21 15:15 Actual Procedure Side Surgeon p Sigmoid Colon Resection Juan Krause MD Postoperative status narrative: 80-year-old man 2 days status post sigmoid colectomy for a endoscopically de torsed sigmoid volvulus. He is recovering however he has a postoperative ileus. -clear liquid diet-await return of bowel function -Out of bed ambulate PT/OT -pLovenox & SCDs Quality VTE Deep Vein Thrombosis/Pulmonary Embolism Present on Admission: No
--- NOTE | 2021-05-16 12:07 | PT.IIE ---
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) Encounter for follow-up examination after completed treatment for conditions other than malignant neoplasm (05/13/21) Surgery Performed Operation Date: 05/13/21 17:45 Actual Procedures p Flexible Sigmoidoscopy, placement of rectal tube - Juan Krause MD Operation Date: 05/13/21 18:15 <No data on this case meets the specified criteria> Operation Date: 05/14/21 15:15 Actual Procedures p Sigmoid Colon Resection - Juan Krause MD Medical History (Last Reviewed 05/13/21 @ 13:52 by Nolberto Rivas PA-C) Acute lymphangitis of right upper extremity Physical Therapy Inpatient Evaluation/Re-Eval M1 PT/OT-IP Prior Functional Status Start: 05/15/21 12:52 Freq: NEEDED Status: Active Protocol: Document 05/16/21 11:17 [facility] (Rec: 05/16/21 12:07 [facility] [id number]) Medical Review Prior Functional Status Communication Independent Mobility and Gait Pt states has been going to IR for PT for balance issues and typically uses 2 walking sticks when outside and no device in the house. Activities of Daily Living and IADL's Per pt completely independent with all ADl and IADl needs. Social History Household Members spouse Living Arrangements House Number of Floors (Floors) Two Floors Number of Stairs To Enter/Railing? 2 steps when the garage with no railing. Pt has a spiral stair case with right rail going down to his office areas that he uses daily. Home Environment Standard Height Toilet,Walk in Shower Home Equipment Hand Held Shower,Crankshaft Grinder Additional Social History Comment Pt has a built in shower seat in which he does not use to sit for showering. Pt has borrowed medical equipment from [employer] in the past when it has been needed. M2 PT-IP Current Condition Start: 05/16/21 11:15 Freq: NEEDED Status: Active Protocol: Document 05/16/21 11:17 [facility] (Rec: 05/16/21 12:07 [facility] [id number]) Physical Therapy Current Condition Current Condition Evaluation Date 05/16/21 Treatment Diagnosis s/p sigmoid colectomy M3 PT-IP Subjective Start: 05/16/21 11:15 Freq: NEEDED Status: Active Protocol: Document 05/16/21 11:17 [facility] (Rec: 05/16/21 12:07 [facility] [id number]) Subjective Physical Therapy Visit Type Type Initial Evaluation Visit Start Time 10:50 Visit Stop Time 11:15 Total Visit Minutes 25 Number of SILK CREPE MACHINE OPERATOR Visits 0 Physical Therapy Visit Comments Patient Comments Pt reports feeling really crummy. Therapy Pain Assessment Pain When Pain Assessed At Rest Pain Present Pain Present Pain Reported Location Abdomen Pain Management Techniques Re-positioning M4 PT-IP Mobility and Gait Start: 05/16/21 11:15 Freq: NEEDED Status: Active Protocol: Document 05/16/21 11:17 [facility] (Rec: 05/16/21 12:07 [facility] [id number]) PT-Bed Mobility Assessment Rolling Type of Rolling Roll to Left Level of Assist Standby Assistance Supine to Sit Supine to Sit Standby Assistance,Head of Bed Elevated,Bedrails Scooting Scooting to Edge of Bed Standby Assistance PT-Transfer Assessment Sit to and From Stand Sit to and from Stand Standby Assistance,Use of Upper Extremities Equipment Transfer Assistive Device Gait Belt,Front Wheeled Walker Orthotic/Prosthetic Devices or Brace: No Comments Mobility Comments supine to sit w/HOB elevated at this is what pt prefers at this time but pt did do a log roll. he scooted to EOB SBA then did sit to stand SBA. He was able to amb very slowly with very small steps w/ shuffling gait pattern with FWW and SBA. He sat on toilet w/use of rails SBA after pulling down brief indep w/SBA . He was left with call light in reacha nd informed nursing. Gait Assessment Gait Gait Assistance Required: Standby Assistance Distance (Feet) 60 Able to Maintain Weight Bearing Status Yes During Gait Assistive Devices Assistive Device Gait Belt,Front Wheeled Walker Orthotic/Prosthetic Devices or Brace: No Gait Deviations General Gait Pattern Decreased Stride Length, Decreased Feet Clearance PT-Balance Assessment Sitting Balance and Reactions Static Sitting Balance Ability Good Dynamic Sitting Balance Ability Fair Standing Balance and Reactions Static Standing Balance Ability Fair Dynamic Standing Balance Ability Fair Device Used FWW M5 PT-IP Objective Assessments Start: 05/16/21 11:15 Freq: NEEDED Status: Active Protocol: Document 05/16/21 11:17 [facility] (Rec: 05/16/21 12:07 [facility] [id number]) Orientation Orientation/Cognition Level of Alertness Alert Language Function Ability No Deficits Noted Safety Awareness Understands Safety Issues Strength Lower Extremity Strength Hip grossly 3+/5 M6 PT-IP Treatment Start: 05/16/21 11:15 Freq: NEEDED Status: Active Protocol: Document 05/16/21 11:17 [facility] (Rec: 05/16/21 12:07 [facility] [id number]) Physical Therapy Treatment Other Treatments Other Treatment Performed edu to patient re: importance of walking and how walking can help w/gas and BM. Discussed walking with RN and/or SHORTAGE WORKER mult times a day in order to help abdomen. Discussed safety of walker use M7 PT-IP Assessment and Plan Start: 05/16/21 11:15 Freq: NEEDED Status: Active Protocol: Document 05/16/21 11:17 [facility] (Rec: 05/16/21 12:07 [facility] [id number]) PT Summary Assessment and Plan Goals Bed Mobility Goal Independent Transfer Goal Independent Gait Goal Independent,Front Wheel Walker Gait Distance 150ft Other Goals up/down 12 stairs w/ rail SBA & up/down 2 steps SBA w/o rail Days to Meet Goals 8 Frequency of Treatment Frequency Of Treatment Once a Day Treatment Plan Physical Therapy Treatment Plan Bed Mobility Training,Transfer Training,Gait Training, Therapeutic Exercise,Balance Retraining,Post Op Education, Discharge Planning, Neuromuscular Re-ed Other Recommendations and Next Treatment Cont to progress gait. train w Focus /seated exercises and inc activity tolerance Precautions Abdominal Surgery Precautions Log Roll,Lifting Restrictions, Gait Belt above Incisional Area Weight Bearing Status Weight Bearing Status Full Weight Bearing Recommendations To Nursing Amount of Assist Needed Standby Assistance Discharge Recommendations PT Discharge Recommendations Home with Assistance,Home Health,Outpatient PT Other Discharge Recommendations HH vs return to OP PT depending on mobility status Equipment Needed for Home Before FWW, possibily elevated toilet Discharge seat and shower chair Transportation Needs at Discharge Private Vehicle
[2021-05-16] MEDS: SIMETHICONE 80 MG TABLET PO ×2 (15:24→22:41)
[2021-05-17] VITALS (9 sets, daily range): BP systolic 127–148; BP diastolic 78–91; PULSE 69–89; RESP 14–20; TEMP 36.6–37.2; O2SAT 92–98
[2021-05-17] MEDS: METOCLOPRAMIDE 10 MG in SODIUM CHLORIDE 0.9% 50 ML 208 ML IV (03:29)
--- NOTE | 2021-05-17 03:44 | PC.NURSE ---
Patient nauseous with intermittent dry heaving throughout shift. Provider notified and one time order of Reglan ordered, continuing to administer Zofran Q8H. Abdominal dressing completely saturated, weighed pad at 3.7 oz. Reapplied with surgical gauze, cover sites, and an abdominal binder. Provider notified.
--- NOTE | 2021-05-17 09:29 | DI.RAD.S_ITS ---
PROCEDURE: XR CHEST 1V INDICATIONS: ng tube placement TECHNIQUE: One view of the chest was acquired. COMPARISON: [facility], CR, XR CHEST 1V, 02/27/2021, 12:14. FINDINGS: Surgical changes and devices: Nasogastric tube is well positioned. Lungs and pleura: Lungs are clear. There is bibasilar atelectasis. No pleural effusions or pneumothorax. Mediastinum: Mediastinal contours appear normal. Heart size is normal. Bones and chest wall: No suspicious bony lesions. Overlying soft tissues appear unremarkable. Dilated loops of large and small bowel consistent with ileus. IMPRESSION: Nasogastric tube is well position. Dictated by: Mahesh Shin M.D. on 05/17/2021 at 9:29 Approved by: Mahesh Shin M.D. on 05/17/2021 at 9:32
[2021-05-17] MEDS: LIDOCAINE JELLY 2% 5 ML 1 APPLIC TOP (09:30)
--- NOTE | 2021-05-17 10:04 | PM.PNPO.1 ---
Subjective Subjective Date Patient Seen: 05/17/21 Time Patient Seen: 10:04 Interval history: Emesis overnight. Feels distended but passing small amounts of liquid stool Exam Vital Signs (past 8 hours): - 05/17/21 04:03 05/17/21 07:33 05/17/21 08:33 Temperature 98.1 F 97.8 F Pulse Rate 86 69 89 Respiratory Rate 18 14 18 Blood Pressure 127/78 148/91 H Pulse Oximetry 95 96 93 Oxygen Delivery Method Room Air Oxygen Flow Rate 0 Narrative Exam Narrative: General elderly man alert oriented no acute distress Chest nonlabored respirations Abdomen distended no peritonitis midline incision clean dry intact. Objective Labs Result Diagrams: 05/16/21 04:30 05/16/21 04:30 [facility] Medical History Acute lymphangitis of right upper extremity Social History household members: spouse Smoking Status: Former smoker Assessment & Plan Post-op Postoperative Procedures: Procedures Operation Date: 05/13/21 17:45 Actual Procedure Side Surgeon p Flexible Sigmoidoscopy, placement of rectal tube Juan Krause MD Operation Date: 05/13/21 18:15 <No data on this case meets the specified criteria> Operation Date: 05/14/21 15:15 Actual Procedure Side Surgeon p Sigmoid Colon Resection Juan Krause MD Postoperative status narrative: 80-year-old man postoperative day 3 status post sigmoid resection for sigmoid volvulus. He has a postoperative ileus. -NG tube placed to intermittent low wall suction continue until return of bowel function -SCDs and prophylactic Lovenox -okay for ice chips and sips of water with NG tube Quality VTE Deep Vein Thrombosis/Pulmonary Embolism Present on Admission: No
[2021-05-17] MEDS: DEXTROSE 5%-0.45NS W/KCL 20MEQ 1,000 ML 125 MEQ IV ×2 (10:15→17:04)
--- NOTE | 2021-05-17 11:20 | PT-IP ANOTE ---
Hold per nursing d/t ng tube just being inserted.
[2021-05-17] MEDS: TETRACAINE/BENZOCAINE/BUTAMBEN (CETACAINE) BOTTLE 1 SPRAY TOP (11:32)
--- NOTE | 2021-05-17 12:48 | PC.NURSE ---
Patient had a small emesis after trying some jellow this morning. Dressing wnl, Dr. Krause in and changed this when doing rounds. He also placed a 16F NG tube, which xray comfirmed placement. Patient had 800cc of brown, bile out into container of suction. This has been changed and new one put in. Patient has had another 100cc of brown bile out. NG is to LIS and he is tolerating this well. Dr. Krause did flush tube this morning and it is working well since. He is now denying nausea and is allowed to sip on clears and water. Resting comfortably and napping.
--- NOTE | 2021-05-17 16:37 | PC.NURSE ---
Day shift: This automobile and property underwriter has taken over care for the rest of Day shift at this time. He remains A&Ox4. In good spirits. He does c/o some discomfort r/t NG tube. He denies any pain or nausea. IV patent and fluids per JUL. Hoover patent with clear yellow output. ABD binder in place. Dressings under binder intact but with saturation. SCD's in place. Ice water at bedside. NG tube patent and tape secured to nose. NG with brown output and set to low intermittent. Bed alarm is on and Pt agrees to not get OOB w/o help from staff.
[2021-05-17] MEDS: BUDESONIDE 0.5 MG/2 ML NEB INH (18:54)
[2021-05-17] MEDS: ONDANSETRON 4 MG/2 ML INJ IV (19:08)
--- NOTE | 2021-05-17 21:25 | PC.NURSE ---
SHIFT: Report received, care assumed 1914. A&Ox4. Reports minimal pain, nausea resolved. Abdomen rounded, distended, with positive bowel sounds x4. Tolerating sips of water.NG to low intermittent suction with bile output. Serosanguinous drainage to dressing; clean dressing applied. Pt. reports he has not been OOB today. Encouraged to get OOB and ambulate with assistance. Pt declining to get OOB at this time.
[2021-05-18] VITALS (7 sets, daily range): BP systolic 130–150; BP diastolic 75–86; PULSE 62–96; RESP 14–18; TEMP 36.3–37.3; O2SAT 93–95
[2021-05-18] MEDS: DEXTROSE 5%-0.45NS W/KCL 20MEQ 1,000 ML 125 MEQ IV ×2 (02:51→10:48)
[2021-05-18 04:52] LABS: Add Manual Diff / Slide Review NO; Basophils Absolute Auto 0 /uL (0-100); Basophils Percent Auto 0.4 % (0-2); Eosinophils Absolute Auto 0 /uL (0-450); Eosinophils Percent Auto 0.4 % (2-4); Hematocrit 41.2 % (41-53); Hemoglobin 13.8 g/dL (13.5-17.5); Lymphocytes Absolute Auto 600 /uL (1100-4500); Lymphocytes Percent Auto 7.4 % (25-40); Mean Corpuscular HGB Conc 33.5 % (30-36); Mean Corpuscular Hemoglobin 30.2 PG (26-34); Mean Corpuscular Volume 90.1 fL (80-100); Monocytes Absolute Auto 1000 /uL (0-900); Monocytes Percent Auto 12.4 % (3-14); Neutrophils Absolute Auto 6700 /uL (1500-7000); Neutrophils Percent Auto 79.4 % (50-75); Platelet Count 307 X10^3/uL (150-400); Red Blood Cell Count 4.57 X10^6/uL (4.5-5.9); Red Cell Distribution Width 14.2 % (11.6-14.8); White Blood Cell Count 8.4 X10^3/uL (4.5-11.0)
[2021-05-18 05:01] LABS: BUN Creatinine Ratio 24.2 (6-22); Blood Urea Nitrogen 22 mg/dL (9-20); Calcium 8.9 mg/dL (8.4-10.2); Carbon Dioxide 31 mmol/L (22-32); Chloride 102 mmol/L (98-107); Estimated Glomerular Filt Rate > 60.0 mL/min (>60); Glucose 147 mg/dL (80-110); HEMOLYSIS 18 (0-50); Potassium 4.4 mmol/L (3.4-5.1); Sodium 135 mmol/L (137-145)
[2021-05-18] MEDS: BUDESONIDE 0.5 MG/2 ML NEB INH (06:53)
--- NOTE | 2021-05-18 09:28 | OT.IPNOTE ---
Attempted to see pt for OT treatment, pt wanting to stay in bed at this time and not feeling well. Pt states to try to get up later as he promised PT that he would get up and walk today.
--- NOTE | 2021-05-18 11:44 | OT.IP.TRT ---
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) Encounter for follow-up examination after completed treatment for conditions other than malignant neoplasm (05/13/21) Surgery Performed Operation Date: 05/13/21 17:45 Actual Procedures p Flexible Sigmoidoscopy, placement of rectal tube - Juan Krause MD Operation Date: 05/13/21 18:15 <No data on this case meets the specified criteria> Operation Date: 05/14/21 15:15 Actual Procedures p Sigmoid Colon Resection - Juan Krause MD Occupational Therapy Treatment Note M2 OT-IP Current Condition Start: 05/15/21 12:52 Freq: Status: Active Protocol: Document 05/15/21 12:52 [facility] (Rec: 05/15/21 13:06 [facility] [id number]) Occupational Therapy Current Condition Current Condition Evaluation Date 05/15/21 Treatment Diagnosis S/p sigmoid colectomy, decreased mobility Diagnosis Onset Date 05/13/21 Post Operative Precautions Abdominal Surgery Precautions Log Roll,Lifting Restrictions, Gait Belt above Incisional Area M3 OT- IP Subjective and Pain Start: 05/15/21 12:52 Freq: Status: Active Protocol: Document 05/18/21 11:15 [facility] (Rec: 05/18/21 12:27 [facility] [id number]) OT- Subjective Occupational Therapy Visit Type Type Treatment Note Visit Start Time 11:15 Visit Stop Time 11:44 Total Visit Minutes 29 Occupational Therapy Visit Comments Patient Comments Pt agreed to get up. Patient/Caregiver Goals TO go home. OT Pain Assessment Pain When Pain Assessed At Rest Pain Present Pain Present Denied Pain M4 OT- IP ADL's Start: 05/15/21 12:52 Freq: Status: Active Protocol: Document 05/18/21 11:15 [facility] (Rec: 05/18/21 12:27 [facility] [id number]) OT [id number] Comments OT Self-Feeding Comments Pt has NG tube in place. OT ADL-Oral Care General Eval Oral Care Ability Standby Assistance Comments Oral Care Comments Assist to hold NG tube out of the way while pt able to brush his teeth and rinse out his mouth. OT ADL-Dressing General Eval Lower Body Dressing Ability Moderate Assistance Comments OT Dressing Comments Pt needing assist to help thread the catheter into the brief and over his feet. OT ADL-Toileting General Evaluation Toileting Ability Moderate Assistance Areas Needing Assistance Manage Clothing Comments OT Toileting Comments Pt needing assist with the brief and able to wipe after a bowel movement. OT ADL-Bathing Comments OT Bathing Comments Not performed. M5 OT- IP IADL's Start: 05/15/21 12:52 Freq: Status: Active Protocol: Document 05/15/21 12:52 [facility] (Rec: 05/15/21 13:06 [facility] [id number]) OT-Instrumental Activities of Daily Living Home Safety Awareness Home Safety Comments Pt's to be home to assist to for all his needs. M6 OT- IP Functional Cognition Start: 05/15/21 12:52 Freq: Status: Active Protocol: Document 05/18/21 11:15 [facility] (Rec: 05/18/21 12:27 [facility] [id number]) Cognitive Factors Limiting Selfcare Function Cognitive Comments Cognitive Assessment Comments Pt able to follow commands well and following his abdominal precautions well. M7 OT- IP Mobility and Balance Start: 05/15/21 12:52 Freq: Status: Active Protocol: Document 05/18/21 11:15 [facility] (Rec: 05/18/21 12:27 [facility] [id number]) OT- Bed Mobility Assessment Rolling Type of Rolling Roll to Left Level of Assistance Minimal Assistance Supine to Sit Supine to Sit Assist Minimal Assistance,1 Person Assistance,Bedrails OT-Transfer Assessment Sit to and From Stand Sit to and from Stand Minimal Assistance Transfers Transfer Ability Standby Assistance,Contact Guard Assistance Technique Transfer Destination Bed,Chair,Toilet Transfer Technique Stand Step Pivot Devices Transfer Assistive Devices Gait Belt,Front Wheeled Walker Comments Mobility Comments JENNIFER to assist from side lying to upright. CGA to stand from lower surfaces and to hold the FWW in place. OT- Balance Assessment Sitting Balance and Reactions Static Sitting Balance Ability Normal Dynamic Sitting Balance Ability Good Standing Balance and Reactions Static Standing Balance Ability Good Dynamic Standing Balance Ability Fair M8 OT- IP Objective Assessments Start: 05/15/21 12:52 Freq: Status: Active Protocol: Document 05/15/21 12:52 [facility] (Rec: 05/15/21 13:06 [facility] [id number]) OT Gross Range of Motion Upper Extremity Range of Motion Assessment Within Functional Limits OT-Muscle Tone Assessment Muscle Tone WNL Yes M9 OT- IP Assessment and Plan Start: 05/15/21 12:52 Freq: Status: Active Protocol: Document 05/18/21 11:15 [facility] (Rec: 05/18/21 12:27 [facility] [id number]) OT Summary Assessment and Plan Potential Rehabilitation Potential Good Analytic Complexity at Evaluation Low Summary OT Impairments Pain,Balance,Functional Mobility,Dressing,Toileting, Bathing,Activity Tolerance Progress Towards Goals Progressing Toward Goals Assessment Summary Pt able to use the toilet, however needing assist for brief management today with the catheter. Pt has NG tube in place now. Pending medical needs home versus possible SNF. Goals Self-Feeding Goal Independent Grooming Goal Independent Dressing Goal Independent Toileting Goal Independent Bathing Goal Independent Toilet Transfer Goal Independent Shower Transfer Goal Independent Days to Meet Goals 7 Frequency of Treatment Frequency Of Treatment Once a Day Treatment Plan OT Treatment Plan ADL Training,Functional Mobility,Patient/Family Education,Discharge Planning Other Treatment Recommendations and Next shower Treatment Focus Discharge Recommendations OT Discharge Recommendations Home with Assistance Home Equipment Needs FWW, shower chair Transportation Needs at Discharge Private Vehicle,Wheelchair/ Cabulance
--- NOTE | 2021-05-18 11:46 | PM.PNPO.1 ---
Subjective Subjective Date Patient Seen: 05/18/21 Time Patient Seen: 11:46 Interval history: Throat hurts and frustrated. Small BM. No nausea Exam Vital Signs (past 8 hours): - 05/18/21 06:53 05/18/21 07:40 Temperature 97.6 F Pulse Rate 71 70 Respiratory Rate 14 16 Blood Pressure 150/81 H Pulse Oximetry 95 95 Oxygen Delivery Method Room Air Oxygen Flow Rate 0 Narrative Exam Narrative: Distended and tympanetic, sero sang drainage of wound, No infection. Objective Labs Result Diagrams: 05/18/21 04:30 05/18/21 04:30 Labs: Laboratory Results - last 24 hr 05/18/21 05/18/21 04:30 04:30 WBC 8.4 RBC 4.57 Hgb 13.8 Hct 41.2 MCV 90.1 MCH 30.2 MCHC 33.5 RDW 14.2 Plt Count 307 Neut % (Auto) 79.4 H Lymph % (Auto) 7.4 L Morrison % (Auto) 12.4 Eos % (Auto) 0.4 L Baso % (Auto) 0.4 Neut # (Auto) 6700 Lymph # (Auto) 600 L Morrison # (Auto) 1000 H Eos # (Auto) 0 Baso # (Auto) 0 Sodium 135 L Potassium 4.4 Chloride 102 Carbon Dioxide 31 BUN 22 H Creatinine 0.91 Estimated GFR > 60.0 BUN/Creatinine Ratio 24.2 H Glucose 147 H Calcium 8.9 PFSH Medical History Acute lymphangitis of right upper extremity Social History household members: spouse Smoking Status: Former smoker Assessment & Plan Post-op Postoperative Procedures: Procedures Operation Date: 05/13/21 17:45 Actual Procedure Side Surgeon p Flexible Sigmoidoscopy, placement of rectal tube Juan Krause MD Operation Date: 05/13/21 18:15 <No data on this case meets the specified criteria> Operation Date: 05/14/21 15:15 Actual Procedure Side Surgeon p Sigmoid Colon Resection Juan Krause MD Postoperative status: post-op ileus and urinary retention Postoperative status narrative: Severe protein malnutrition Postoperative plan narrative: Clamp trial of NGT. PICC line and start TPN w lipids. Continue alfaro and start flomax Time Spent With Patient Time with patient: 15-24 minutes Quality VTE Deep Vein Thrombosis/Pulmonary Embolism Present on Admission: No
[2021-05-18] MEDS: ONDANSETRON 4 MG/2 ML INJ IV (12:06)
--- NOTE | 2021-05-18 12:25 | PC.NURSE ---
PT HAS FACIAL GRIMACE BUT DENIES PAIN, OCC COMPLAINS OF WAVES OF QUEEZE MEDICATED WITH 4MG IV ZOFRAN WHICH SEEMS EFFECTIVE - NGT CLAMPED AT THIS TIME AND HE IS UP IN CHAIR AFTER SMALL BM IN BATHROOM- VSS
[2021-05-18] MEDS: SIMETHICONE 80 MG TABLET PO (13:00)
--- NOTE | 2021-05-18 14:10 | PT-IP ANOTE ---
Contacted pt twice today to work with PT. On first visit, pt agreed to PM treatment. When PT arrived at 1400, pt was being prepped for PICC line placement. Will follow up 05/19/21.
--- NOTE | 2021-05-18 14:16 | DI.RAD.S_ITS ---
PROCEDURE: XR CHEST FOR PICC 1V INDICATIONS: picc line placement TECHNIQUE: One view of the chest was acquired. COMPARISON: [facility], CT, CT ABDOMEN PELVIS W CON, 05/13/2021, 14:44. [facility], CR, XR CHEST 1V, 05/17/2021, 9:51. [facility], CR, XR CHEST 1V, 02/27/2021, 12:14. FINDINGS: Surgical changes and devices: Left-sided PICC with the catheter tip projecting at the middle 3rd of the SVC. There is an enteric tube which is coiled in the stomach. Lungs and pleura: Lungs appear clear. No pleural effusions or pneumothorax. Mediastinum: Mediastinal contours appear unchanged. Asymmetric elevation of the left hemidiaphragm. Heart size is normal. Bones and chest wall: No suspicious bony lesions. Gaseous distension of the loops of bowel in the upper abdomen. IMPRESSION: Left-sided PICC with the catheter tip projecting at the level of the middle 3rd of the SVC. Enteric tube coiled in the stomach. Prominent bowel gas. Dictated by: Tip Nieto M.D. on 05/18/2021 at 15:04 Approved by: Tip Nieto M.D. on 05/18/2021 at 15:06
[2021-05-18] MEDS: FAT EMULSIONS 50 GM/250 ML EMULSION IV (18:27)
[2021-05-18] MEDS: AA 5 %/CALCIUM/LYTES/DEXT 20 % 1,000 ML with MULTIVITAMIN 10 ML, TRACE ELEMENTS 1 ML 42.125 ML IV (18:27)
[2021-05-19] MEDS: MAG HYDROX/ALUM/SIMETH 30 ML UDC PO (00:05)
[2021-05-19] MEDS: ONDANSETRON 4 MG/2 ML INJ IV (00:08)
--- NOTE | 2021-05-19 01:09 | PC.NURSE ---
SHIFT: Report received, care assumed 1914. A&Ox4. VSS. Denies pain. C/o some mild nausea/heartburn/burping intermittently. Treated with Zofran and Maalox, given susan simeon to sip. No emesis and continues to have positive bowel tones. Ambulatory to bathroom with 1-person assist.
[2021-05-19 04:58] VITALS: BP 132/70; PULSE 91; RESP 18; TEMP 36.7; O2SAT 91
[2021-05-19 05:07] LABS: Add Manual Diff / Slide Review NO; Basophils Absolute Auto 0 /uL (0-100); Basophils Percent Auto 0.1 % (0-2); Eosinophils Absolute Auto 100 /uL (0-450); Hemoglobin 13.1 g/dL (13.5-17.5); Lymphocytes Absolute Auto 800 /uL (1100-4500); Lymphocytes Percent Auto 9.7 % (25-40); Mean Corpuscular HGB Conc 33.6 % (30-36); Mean Corpuscular Hemoglobin 30.2 PG (26-34); Mean Corpuscular Volume 89.9 fL (80-100); Monocytes Absolute Auto 1300 /uL (0-900); Monocytes Percent Auto 14.5 % (3-14); Neutrophils Absolute Auto 6400 /uL (1500-7000); Neutrophils Percent Auto 74.7 % (50-75); Platelet Count 312 X10^3/uL (150-400); Red Blood Cell Count 4.34 X10^6/uL (4.5-5.9); Red Cell Distribution Width 14.1 % (11.6-14.8); White Blood Cell Count 8.6 X10^3/uL (4.5-11.0)
[2021-05-19 05:25] LABS: Alanine Aminotransferase 24 IU/L (<50); Albumin 3.3 g/dL (3.5-5.0); Albumin Globulin Ratio 1.3 (1.0-2.8); Alkaline Phosphatase 48 U/L (38-126); Aspartate Aminotransferase 25 IU/L (17-59); BUN Creatinine Ratio 26.2 (6-22); Bilirubin Total 0.5 mg/dL (0.2-1.3); Blood Urea Nitrogen 22 mg/dL (9-20); Calcium 9.2 mg/dL (8.4-10.2); Carbon Dioxide 30 mmol/L (22-32); Chloride 104 mmol/L (98-107); Estimated Glomerular Filt Rate > 60.0 mL/min (>60); Globulin 2.6 g/dL (1.7-4.1); Glucose 131 mg/dL (80-110); HEMOLYSIS < 15 (0-50); Potassium 3.9 mmol/L (3.4-5.1); Sodium 137 mmol/L (137-145); Total Protein 5.9 g/dL (6.3-8.2)
[2021-05-19 05:38] LABS: Magnesium 2.4 mg/dL (1.6-2.3); Phosphorous 2.3 mg/dL (2.3-3.7); Triglycerides 95 mg/dL (35-150)
[2021-05-19 05:46] LABS: Prealbumin 18.3 mg/dL (17.6-36.0)
[2021-05-19 07:39] VITALS: PULSE 72; RESP 16; O2SAT 94
[2021-05-19] MEDS: BUDESONIDE 0.5 MG/2 ML NEB INH (07:40)
[2021-05-19 08:32] VITALS: BP 142/83; PULSE 73; RESP 16; TEMP 36.7; O2SAT 95
[2021-05-19] MEDS: ENOXAPARIN 40 MG/0.4 ML SYRINGE SUBCUT (08:43)
--- NOTE | 2021-05-19 10:26 | DIET.CONS2 ---
Addendum entered by Cydney Gonzalez 05/19/21 12:53: Recc hanging 2L bag TPN tonight running at 62mL/h through night, if morning refeeding labs WNL, recc increasing rate to goal, 82mL/h. Original Note: Dietary Inpatient Consultation Note Admission Date: 05/13/2021 16:28 Assessment: 80y M admitted for gas distention/nausea/vomiting found to have sigmoid volvulus. Pt taken for colonoscopy to temporarily adjust volvulus 6d ago and had bowel resection 5d ago. Pt experiencing postop ileus with poor POs x10d starting on TPN. Pt BMI 20.6 (severe for age). Pt tolerating continuous TPN running through PICC 1L Clinimix 5/20 c 250mL lipids with no signs of refeeding providing 44% kcals from TPN, 25% from lipids, and 56% protein needs. Nutrition Dx: Severe Acute Protein Calorie Malnutrition r/t prolonged NPO status, increased needs aeb pt meeting <50% EER x10d, post op ileus after colectomy, BMI 20.6 (severe for age), increased needs secondary to post-op state. EER: 2,050kcals (30kcal/kg per PCM), 90g PRO (1.3g/kg per PCM) Interventions: 1. Recc increasing TPN to 2L Clinimix 5/20 running continuously via PICC with IVFE three days per week (M, W, F). Goal rate provides 100% kcal and 110% protein needs. 2. Recc continuing watching refeeding labs as well as renal fxn. 3. Recc monitoring fluid balance with increase in TPN. Monitoring/Evaluations: following daily Electronically Signed by: Cydney Gonzalez 05/19/21 10:26 Clinical [address] [id number]
--- NOTE | 2021-05-19 11:15 | PT-IP ANOTE ---
Pt refused at 2nd attempt to see for therapy this am, states tired and waiting to see physician before working with therapy. Pt is agreeableto completing caregiver training with spouse prior to DC. CONTROL CLERK REPAIRS provided education importance of progressing mobility and include stair mgt for safety, strength and functional independence. Pt agreeable for physical therapy to return in pm.
--- NOTE | 2021-05-19 12:06 | CM.DPC ---
DCP Cont: Discussed patient during team rounds. Patient had NG tube clamped, and TPN initiated. Cydney, shaft headman, will be working with patient. P.T. has worked with patient, and indicated, he has been mobile and ambulatory of one assist. They will recommend caregiver training with spouse. Home is the plan, he may benefit with home health. P: DCP to continue to follow for any needs. Patient is not medically ready for discharge at this time, as he is currently on TPN. Will follow closely for any needs. Dinora Robles RN/Motion Study Technician
[2021-05-19 12:08] VITALS: BP 142/75; PULSE 64; RESP 16; TEMP 37; O2SAT 93
--- NOTE | 2021-05-19 12:51 | OT.IPNOTE ---
Pt states waiting to talk to the doctor as wanting to get the NG tube out and catheter out. Nursing aware of his requests. Pt states not wanting to get up at this time but promised to get up with PT later. Strongly encouraged pt that movement is very beneficial for his recovery.
--- NOTE | 2021-05-19 14:08 | PT.IPTN ---
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) Encounter for follow-up examination after completed treatment for conditions other than malignant neoplasm (05/13/21) Surgery Performed Operation Date: 05/13/21 17:45 Actual Procedures p Flexible Sigmoidoscopy, placement of rectal tube - Juan Krause MD Operation Date: 05/13/21 18:15 <No data on this case meets the specified criteria> Operation Date: 05/14/21 15:15 Actual Procedures p Sigmoid Colon Resection - Juan Krause MD Physical Therapy Treatment Note M2 PT-IP Current Condition Start: 05/16/21 11:15 Freq: NEEDED Status: Active Protocol: Document 05/19/21 14:44 SP (Rec: 05/19/21 15:19 SP [id number]) Physical Therapy Current Condition Current Condition Evaluation Date 05/16/21 Treatment Diagnosis s/p sigmoid colectomy M3 PT-IP Subjective Start: 05/16/21 11:15 Freq: NEEDED Status: Active Protocol: Document 05/19/21 14:44 SP (Rec: 05/19/21 15:19 SP [id number]) Subjective Physical Therapy Visit Type Type Treatment Note Visit Start Time 13:33 Visit Stop Time 14:08 Total Visit Minutes 36 Notes SECURITY OPERATIONS SPECIALIST assisted with donning abdominal binder and follow with w/c during hallway mobility. Number of STOCK MOVER Visits 1 Physical Therapy Visit Comments Patient Comments Pt agreeable to working with therapy. Therapy Pain Assessment Pain When Pain Assessed At Rest Pain Present Pain Present Pain Reported Location Abdomen Scale Used uncomfortable, not quantified Pain Management Techniques Re-positioning M4 PT-IP Mobility and Gait Start: 05/16/21 11:15 Freq: NEEDED Status: Active Protocol: Document 05/19/21 14:44 SP (Rec: 05/19/21 15:19 SP [id number]) PT-Bed Mobility Assessment Rolling Type of Rolling Roll to Left Level of Assist Standby Assistance Supine to Sit Supine to Sit Standby Assistance,Head of Bed Elevated,Bedrails Scooting Scooting to Edge of Bed Standby Assistance PT-Transfer Assessment Sit to and From Stand Sit to and from Stand Standby Assistance,Use of Upper Extremities Equipment Transfer Assistive Device Gait Belt,Front Wheeled Walker Orthotic/Prosthetic Devices or Brace: No Transfers Transfer Destination Chair Transfer Technique ambulated with FWW Transfer Ability Level of Assist Standby Assistance,Use of Upper Extremities Comments Mobility Comments SECURITY OPERATIONS SPECIALIST donning abdominal binder to pt in supine when arrived, reported did get soiled and needed to hand wash, was air drying on bathroom door before PT. SECURITY OPERATIONS SPECIALIST applied pillow cases around abdomen for safety keeping incision dry/ clean under damp abdominal binder. LR L with use of bed rail, L SL>sit, scoot to EOB SBA. STOCK MOVER/ SECURITY OPERATIONS SPECIALIST repositioned abdominal binder more snug in sitting. Sit>stand SBA using BUE with awareness of gentle bracing abdomen for support. Ambulated further distance into hallway using FWW SBA, SECURITY OPERATIONS SPECIALIST followed with IV pole and w/c but not needed, approx 100 ft. Completed 2 PF steps ascend/ descend using FWW CGA to assimulate enterance to home, stable no LOB, assessed without AD AIR ANALYSIS TECHNICIAN 1 PF step, wt shift deviations CGA on gait belt for recovery. Then completed 9 stairs receiprocal stepping to assimulate flights to office and bedroom CGA using L HR, stable no LOB. Pt ambulated further distance back to room without AD, wt shift deviations with small semi receiprocal gait patterning Min A x1 for wt shift sways in balance I feel wobbly. Cued for increased stride but unable to maintain. Pt sat in chair when returned to room, SBA. STOCK MOVER discussed in balance during gait without AD and agreement needs to use FWW at this time, then can progress to personal walking sticks has at home. Pt stated his can call and borrow fWW for home when ready to DC. STOCK MOVER recommended caregiver training tomorrow at 11am or sooner if able. doesn't drive and will coordinate getting a ride, friend or taxi . STOCK MOVER discussed also talking to nursing torrow if will need to get prescriptions when leaving for awareness with transportation. Gait Assessment Gait Gait Assistance Required: Standby Assistance Distance (Feet) 200 Able to Maintain Weight Bearing Status Yes During Gait Assistive Devices Assistive Device None,Gait Belt,Front Wheeled Walker Orthotic/Prosthetic Devices or Brace: No Gait Deviations General Gait Pattern Antalgic,Decreased Stride Length,Decreased Feet Clearance Factors Limiting Gait Function Factors Limiting Gait Function Decreased Activity Tolerance, Decreased Strength,Pain,Poor Balance,Poor Safety Awareness Comments Gait Comments small semi stagger stepping, cued increase stride using fWW sBA, CG- min A x1 no AD with minimal unsteady sway, no LOB. I feel wobbly. Stair Climbing Assessment Evaluation Level of Assist On Stairs Contact Guard Assistance,1 Person Assistance Devices Stair Climbing Assistive Devices None,Front Wheel Walker Technique/Endurance Stair Climbing Direction Ascend and Descend Stair Climbing Technique Step Over Step,Step to Step Number of Steps Climbed 1 Stair Climbing Set # Repetitions (reps) 2 Comments Stair Climbing Comments 2 PF steps CGA with FWW, 1 PF step no AD CG- Min A for trunk stability, 9 stairs L HR CGA steady receiprocal stepping. PT-Balance Assessment Sitting Balance and Reactions Static Sitting Balance Ability Normal Dynamic Sitting Balance Ability Normal Standing Balance and Reactions Static Standing Balance Ability Good Dynamic Standing Balance Ability Good Device Used FWW M5 PT-IP Objective Assessments Start: 05/16/21 11:15 Freq: NEEDED Status: Active Protocol: Document 05/16/21 11:17 LR (Rec: 05/16/21 12:07 [facility] [id number]) Orientation Orientation/Cognition Level of Alertness Alert Language Function Ability No Deficits Noted Safety Awareness Understands Safety Issues Strength Lower Extremity Strength Hip grossly 3+/5 M6 PT-IP Treatment Start: 05/16/21 11:15 Freq: NEEDED Status: Active Protocol: Document 05/19/21 14:44 SP (Rec: 05/19/21 15:19 SP [id number]) Physical Therapy Treatment Exercises Exercises Ankle Pumps,Seated Knee Flexion/Extension Other Treatments Other Treatment Performed Reeducated to patient re: importance of walking and how walking can help w/gas and BM. Discussed walking with RN and /or SECURITY OPERATIONS SPECIALIST mult times a day in order to help abdomen. Discussed safety of walker use . LE ex pre mobility strenthening/ ROM and circulation support. M7 PT-IP Assessment and Plan Start: 05/16/21 11:15 Freq: NEEDED Status: Active Protocol: Document 05/19/21 14:44 SP (Rec: 05/19/21 15:19 SP [id number]) PT Summary Assessment and Plan Summary Impairments Pain,ROM,Strength,Balance, Coordination,Transfers,Gait, Activity Tolerance Progress Towards Goals Progressing Toward Goals,Slow Progress due to Pain,Slow Progress due to Activity Tolerance Assessment Summary SBA during bed mob, transfers, gait w/ FWW, CG- Min A no AD. Discussed to acquire FWW for home use and if unable to get can ask for orders to dispense prior to DC. CGT at 11am or sooner tomorrow with . Pt had all needs, call light in reach, discussed recommending HHPT for strength and balance progresssion toward functional independence with verbalized agreement. Discussed walking with nursing staff for strength and increase digestive progression support. Will continue to assess progress. Goals Bed Mobility Goal Independent Transfer Goal Independent Gait Goal Independent,Front Wheel Walker Gait Distance 150ft Other Goals up/down 12 stairs w/ rail SBA & up/down 2 steps SBA w/o rail Days to Meet Goals 8 Frequency of Treatment Frequency Of Treatment Once a Day Treatment Plan Physical Therapy Treatment Plan Bed Mobility Training,Transfer Training,Gait Training, Therapeutic Exercise,Balance Retraining,Post Op Education, Discharge Planning, Neuromuscular Re-ed Other Recommendations and Next Treatment progress gait LRAD, train Focus seated ex pre gait increase activity tolerance. Caregiver training 05/20 at 11am or sooner if arrives sooner. Precautions Abdominal Surgery Precautions Log Roll,Lifting Restrictions, Gait Belt above Incisional Area Weight Bearing Status Weight Bearing Status Full Weight Bearing Recommendations To Nursing Amount of Assist Needed 1 Person Assist Discharge Recommendations PT Discharge Recommendations Home with Assistance,Home Health,Outpatient PT Equipment Needed for Home Before FWW- to acquire, if Discharge unable need orders to dispense one, possibily elevated toilet seat and shower chair. Transportation Needs at Discharge Private Vehicle
[2021-05-19] MEDS: TAMSULOSIN 0.4 MG CAPSULE PO (14:37)
[2021-05-19 15:13] VITALS: BP 142/86; PULSE 66; RESP 16; TEMP 36.4; O2SAT 97
--- NOTE | 2021-05-19 16:58 | P.PN_ITS ---
Subjective Subjective Date Patient Seen: 05/19/21 Time Patient Seen: 12:00 Interval history: gets nausea with drinking. NGT has been clamped all night Exam Vital Signs (past 8 hours): - 05/19/21 12:08 05/19/21 15:13 Temperature 98.6 F 97.6 F Pulse Rate 64 66 Respiratory Rate 16 16 Blood Pressure 142/75 H 142/86 H Pulse Oximetry 93 97 Oxygen Delivery Method Room Air Oxygen Flow Rate 0 Narrative Exam Narrative: Low residual on NGT (removed). Alfaro in place. Abdomen is less distended. multiple small bms Objective Labs Result Diagrams: 05/19/21 05:00 05/19/21 05:00 Labs: Laboratory Results - last 24 hr 05/19/21 05/19/21 05/19/21 05:00 05:00 05:00 WBC 8.6 RBC 4.34 L Hgb 13.1 L Hct 39.0 L MCV 89.9 MCH 30.2 MCHC 33.6 RDW 14.1 Plt Count 312 Neut % (Auto) 74.7 Lymph % (Auto) 9.7 L [place] % (Auto) 14.5 H Eos % (Auto) 1.0 L Baso % (Auto) 0.1 Neut # (Auto) 6400 Lymph # (Auto) 800 L [place] # (Auto) 1300 H Eos # (Auto) 100 Baso # (Auto) 0 Sodium 137 Potassium 3.9 Chloride 104 Carbon Dioxide 30 BUN 22 H Creatinine 0.84 Estimated GFR > 60.0 BUN/Creatinine Ratio 26.2 H Glucose 131 H Calcium 9.2 Phosphorus 2.3 Magnesium 2.4 H Total Bilirubin 0.5 AST 25 ALT 24 Alkaline Phosphatase 48 Total Protein 5.9 L Albumin 3.3 L Globulin 2.6 Albumin/Globulin Ratio 1.3 Prealbumin 18.3 Triglycerides 95 PFSH Medical History Acute lymphangitis of right upper extremity Social History household members: spouse Smoking Status: Former smoker Assessment & Plan Post-op Postoperative Procedures: Procedures Operation Date: 05/13/21 17:45 Actual Procedure Side Surgeon p Flexible Sigmoidoscopy, placement of rectal tube Juan Krause MD Operation Date: 12/22/21 18:15 <No data on this case meets the specified criteria> Operation Date: 05/14/21 15:15 Actual Procedure Side Surgeon p Sigmoid Colon Resection Juan Krause MD Postoperative status: doing well Postoperative status narrative: s/p sigmoid colectomy for volvulus. ileus has resolved. H/o urinary retention Postoperative plan narrative: NGT removed, advancing diet. remove alfaro to eval for urinary retention in anticipation of discharge. Continue TPN Time Spent With Patient Time with patient: less than 15 minutes Quality VTE Deep Vein Thrombosis/Pulmonary Embolism Present on Admission: No
[2021-05-19] MEDS: TRACE ELEMENTS IV (18:54)
[2021-05-19] MEDS: CALCIUM IV (18:54)
[2021-05-19] MEDS: DEXT IV (18:54)
[2021-05-19] MEDS: [UNRECOGNIZED DRUG - OTHER] IV (18:54)
[2021-05-19] MEDS: MULTIVITAMIN IV (18:54)
[2021-05-19] MEDS: LYTES IV (18:54)
[2021-05-19 20:09] VITALS: BP 133/81; PULSE 65; RESP 18; TEMP 36.8; O2SAT 96
[2021-05-19] MEDS: SODIUM CHLORIDE 0.9% FLUSH 10 ML IV (20:50)
--- NOTE | 2021-05-19 21:07 | RT ---
Pt refused Pulmicort SVN at 2027.
[2021-05-20] VITALS: BP 135/77; PULSE 79; RESP 18; TEMP 36.5; O2SAT 94
[2021-05-20 04:00] VITALS: BP 134/72; PULSE 61; RESP 18; TEMP 36.6; O2SAT 94
[2021-05-20 06:13] LABS: Add Manual Diff / Slide Review NO; Basophils Absolute Auto 100 /uL (0-100); Basophils Percent Auto 0.6 % (0-2); Eosinophils Absolute Auto 500 /uL (0-450); Eosinophils Percent Auto 5.8 % (2-4); Hematocrit 37.6 % (41-53); Hemoglobin 12.6 g/dL (13.5-17.5); Lymphocytes Absolute Auto 1000 /uL (1100-4500); Lymphocytes Percent Auto 12.4 % (25-40); Mean Corpuscular HGB Conc 33.6 % (30-36); Mean Corpuscular Hemoglobin 30.2 PG (26-34); Mean Corpuscular Volume 89.8 fL (80-100); Monocytes Absolute Auto 1100 /uL (0-900); Monocytes Percent Auto 13.2 % (3-14); Neutrophils Absolute Auto 5400 /uL (1500-7000); Platelet Count 283 X10^3/uL (150-400); Red Blood Cell Count 4.19 X10^6/uL (4.5-5.9); Red Cell Distribution Width 14.3 % (11.6-14.8)
[2021-05-20 06:22] LABS: Magnesium 2.4 mg/dL (1.6-2.3); Phosphorous 2.8 mg/dL (2.3-3.7)
[2021-05-20 06:47] LABS: BUN Creatinine Ratio 31.6 (6-22); Blood Urea Nitrogen 24 mg/dL (9-20); Calcium 9.1 mg/dL (8.4-10.2); Carbon Dioxide 28 mmol/L (22-32); Chloride 109 mmol/L (98-107); Estimated Glomerular Filt Rate > 60.0 mL/min (>60); Glucose 112 mg/dL (80-110); HEMOLYSIS < 15 (0-50); Potassium 3.6 mmol/L (3.4-5.1); Sodium 137 mmol/L (137-145)
[2021-05-20 08:10] VITALS: BP 121/54; PULSE 83; RESP 16; TEMP 36.3; O2SAT 96
--- NOTE | 2021-05-20 09:18 | PM.PNPO.1 ---
Subjective Subjective Date Patient Seen: 05/20/21 Time Patient Seen: 06:00 Interval history: Incomplete emptying of bladder, but able to void. tolerating clears Exam Vital Signs (past 8 hours): - 05/20/21 04:00 05/20/21 08:10 Temperature 97.9 F 97.4 F L Pulse Rate 61 83 Respiratory Rate 18 16 Blood Pressure 134/72 121/54 L Pulse Oximetry 94 96 Oxygen Delivery Method Room Air Oxygen Flow Rate 0 Narrative Exam Narrative: soft abdomen, decreased distention. wound intact Objective Labs Result Diagrams: 05/20/21 06:00 05/20/21 06:00 Labs: Laboratory Results - last 24 hr 05/20/21 05/20/21 05/20/21 06:00 06:00 06:00 WBC 8.0 RBC 4.19 L Hgb 12.6 L Hct 37.6 L MCV 89.8 MCH 30.2 MCHC 33.6 RDW 14.3 Plt Count 283 Neut % (Auto) 68.0 Lymph % (Auto) 12.4 L [place] % (Auto) 13.2 Eos % (Auto) 5.8 H Baso % (Auto) 0.6 Neut # (Auto) 5400 Lymph # (Auto) 1000 L [place] # (Auto) 1100 H Eos # (Auto) 500 H Baso # (Auto) 100 Sodium 137 Potassium 3.6 Chloride 109 H Carbon Dioxide 28 BUN 24 H Creatinine 0.76 Estimated GFR > 60.0 BUN/Creatinine Ratio 31.6 H Glucose 112 H Calcium 9.1 Phosphorus 2.8 Magnesium 2.4 H PFSH Medical History Acute lymphangitis of right upper extremity Social History household members: spouse Smoking Status: Former smoker Assessment & Plan Post-op Postoperative Procedures: Procedures Operation Date: 05/13/21 17:45 Actual Procedure Side Surgeon p Flexible Sigmoidoscopy, placement of rectal tube Juan Krause MD Operation Date: 05/13/21 18:15 <No data on this case meets the specified criteria> Operation Date: 05/14/21 15:15 Actual Procedure Side Surgeon p Sigmoid Colon Resection Juan Krause MD Postoperative status narrative: making progress, GI function returned. Urinary retention responding to flomax Postoperative plan narrative: advance diet, continue TPN. potential for discharge tomorrow Quality VTE Deep Vein Thrombosis/Pulmonary Embolism Present on Admission: No
[2021-05-20] MEDS: ENOXAPARIN 40 MG/0.4 ML SYRINGE SUBCUT (10:15)
[2021-05-20] MEDS: SODIUM CHLORIDE 0.9% FLUSH 10 ML IV ×2 (10:16→21:15)
--- NOTE | 2021-05-20 10:33 | PC.NURSE ---
Addendum entered by Aggie Roa R.N. 05/20/21 19:16: Patients tpn started around 1815 at 84cc/hr Addendum entered by Aggie Roa R.N. 05/20/21 15:27: Patient tolerating his TPN, bs in the 150s. He is not eating much at meals yet, he ate about 10% of his lunch earlier, bites of soup. He is comfortable and resting comfortably, here earlier. Maitre D' spoke with about meals. Addendum entered by Aggie Roa R.N. 05/20/21 12:17: Patient voided 325cc of yellow shaheed urine. Bladder scan not done at this time. Will keep and eye on his urine output. Patient changed his mind about flomax to be given and he has taken it. States that he wants to keep on top of his urination. Original Note: Assess- Patient is alert and oriented x3. He is up with 1 PA and walker and slightly unsteady on his feet. Patient has a ml incision that is cdi, dressing with a small amount of ss drainage. He has an abdominal binder atop the incision. Patient up to have a bowel movement and assistant professor of nursing states that she heard him void a good amount. Patient said he may have went a few drops. We will bladder scan patient in 2 hours to see how much urine he has in his bladder. He refused his Flomax, states that it has made him dizzy. He took it yesterday , so may be some confusion regarding this med. Did not give him the flomax but did try to explain the benefits of this medication. He is sitting up in the chair now and watching television. His will be here around 1130 for caregiver training.
[2021-05-20] MEDS: TAMSULOSIN 0.4 MG CAPSULE PO (11:42)
--- NOTE | 2021-05-20 12:25 | OT.IP.TRT ---
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) Encounter for follow-up examination after completed treatment for conditions other than malignant neoplasm (05/13/21) Surgery Performed Operation Date: 05/13/21 17:45 Actual Procedures p Flexible Sigmoidoscopy, placement of rectal tube - Juan Krause MD Operation Date: 05/13/21 18:15 <No data on this case meets the specified criteria> Operation Date: 05/14/21 15:15 Actual Procedures p Sigmoid Colon Resection - Juan Krause MD Occupational Therapy Treatment Note M2 OT-IP Current Condition Start: 05/15/21 12:52 Freq: Status: Active Protocol: Document 05/15/21 12:52 [facility] (Rec: 05/15/21 13:06 [facility] [id number]) Occupational Therapy Current Condition Current Condition Evaluation Date 05/15/21 Treatment Diagnosis S/p sigmoid colectomy, decreased mobility Diagnosis Onset Date 05/13/21 Post Operative Precautions Abdominal Surgery Precautions Log Roll,Lifting Restrictions, Gait Belt above Incisional Area M3 OT- IP Subjective and Pain Start: 05/15/21 12:52 Freq: Status: Active Protocol: Document 05/20/21 08:58 [facility] (Rec: 05/20/21 13:37 [facility] [id number]) OT- Subjective Occupational Therapy Visit Type Type Treatment Note Visit Start Time 08:58 Visit Stop Time 12:20 Total Visit Minutes 25 Notes Pt seen for split treatment from [id number] and [id number]. Able to talk to his and go over OT needs. Occupational Therapy Visit Comments Patient Comments Pt wanting to get back to bed. Patient/Caregiver Goals To go home. OT Pain Assessment Pain When Pain Assessed At Rest Pain Present Pain Present Denied Pain M4 OT- IP ADL's Start: 05/15/21 12:52 Freq: Status: Active Protocol: Document 05/20/21 08:58 [facility] (Rec: 05/20/21 13:37 [facility] [id number]) OT [id number] Comments OT Self-Feeding Comments Pt states only able to get down a few bites of chicken noodle soup. OT ADL-Dressing General Eval Upper Body Dressing Ability Standby Assistance Comments OT Dressing Comments Pt able to doff his gown when standing. Pt has a ui developer to use at home for Lb dressing needs and that his is able to assist him. OT ADL-Bathing Comments OT Bathing Comments Pt states has a shower stool. M5 OT- IP IADL's Start: 05/15/21 12:52 Freq: Status: Active Protocol: Document 05/15/21 12:52 [facility] (Rec: 05/15/21 13:06 [facility] [id number]) OT-Instrumental Activities of Daily Living Home Safety Awareness Home Safety Comments Pt's to be home to assist ot for all his needs. M6 OT- IP Functional Cognition Start: 05/15/21 12:52 Freq: Status: Active Protocol: Document 05/20/21 08:58 [facility] (Rec: 05/20/21 13:37 [facility] [id number]) Cognitive Factors Limiting Selfcare Function Cognitive Comments Cognitive Assessment Comments Intact. M7 OT- IP Mobility and Balance Start: 05/15/21 12:52 Freq: Status: Active Protocol: Document 05/20/21 08:58 [facility] (Rec: 05/20/21 13:37 [facility] [id number]) OT- Bed Mobility Assessment Supine to Sit Supine to Sit Assist Standby Assistance Sit to Supine Sit to Supine Assist Standby Assistance OT-Transfer Assessment Sit to and From Stand Sit to and from Stand Standby Assistance Transfers Transfer Ability Standby Assistance,Contact Guard Assistance Technique Transfer Destination Bed,Chair Transfer Technique Stand Step Pivot Devices Transfer Assistive Devices None Comments Mobility Comments SBA to stand from the recliner and CGA for balance stand pivot to the recliner. OT- Balance Assessment Sitting Balance and Reactions Static Sitting Balance Ability Normal Dynamic Sitting Balance Ability Good Standing Balance and Reactions Static Standing Balance Ability Good Dynamic Standing Balance Ability Fair M8 OT- IP Objective Assessments Start: 05/15/21 12:52 Freq: Status: Active Protocol: Document 05/15/21 12:52 [facility] (Rec: 05/15/21 13:06 [facility] [id number]) OT Gross Range of Motion Upper Extremity Range of Motion Assessment Within Functional Limits OT-Muscle Tone Assessment Muscle Tone WNL Yes M9 OT- IP Assessment and Plan Start: 05/15/21 12:52 Freq: Status: Active Protocol: Document 05/20/21 08:58 [facility] (Rec: 05/20/21 13:37 [facility] [id number]) OT Summary Assessment and Plan Potential Rehabilitation Potential Good Analytic Complexity at Evaluation Low Summary OT Impairments Pain,Balance,Functional Mobility,Dressing,Toileting, Bathing,Activity Tolerance Progress Towards Goals Progressing Toward Goals Assessment Summary Pt now tolerating a little food. Pt's requesting to talk to barrel planer regarding nutrition and food needs. Able to talk to pt's nurse of her request. Pt looking to go home with home health tomorrow . Goals Self-Feeding Goal Independent Grooming Goal Independent Dressing Goal Independent Toileting Goal Independent Bathing Goal Independent Toilet Transfer Goal Independent Shower Transfer Goal Independent Days to Meet Goals 5 Frequency of Treatment Frequency Of Treatment Once a Day Treatment Plan OT Treatment Plan ADL Training,Functional Mobility,Patient/Family Education,Discharge Planning Other Treatment Recommendations and Next shower Treatment Focus Discharge Recommendations OT Discharge Recommendations Home with Assistance,Home Health Transportation Needs at Discharge Private Vehicle
--- NOTE | 2021-05-20 12:35 | PT.IPTN ---
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) Encounter for follow-up examination after completed treatment for conditions other than malignant neoplasm (05/13/21) Surgery Performed Operation Date: 05/13/21 17:45 Actual Procedures p Flexible Sigmoidoscopy, placement of rectal tube - Juan Krause MD Operation Date: 05/13/21 18:15 <No data on this case meets the specified criteria> Operation Date: 05/14/21 15:15 Actual Procedures p Sigmoid Colon Resection - Juan Krause MD Physical Therapy Treatment Note M2 PT-IP Current Condition Start: 05/16/21 11:15 Freq: NEEDED Status: Active Protocol: Document 05/20/21 12:00 SP (Rec: 05/20/21 18:05 SP [id number]) Physical Therapy Current Condition Current Condition Evaluation Date 05/16/21 Treatment Diagnosis s/p sigmoid colectomy M3 PT-IP Subjective Start: 05/16/21 11:15 Freq: NEEDED Status: Active Protocol: Document 05/20/21 12:00 SP (Rec: 05/20/21 18:05 SP [id number]) Subjective Physical Therapy Visit Type Type Treatment Note Visit Start Time 12:00 Visit Stop Time 12:35 Total Visit Minutes 35 Notes in room when arrived, complete caregiver training and provided physical support requried throughout tx. Number of VENEER SAWYER Visits 2 Physical Therapy Visit Comments Patient Comments Pt agreeable to working with therapy. Patient Goals Return home with to assist him. Therapy Pain Assessment Pain Present Pain Present Pain Reported Location Abdomen Intensity 0 Scale Used Numeric (0 - 10) Pain Management Techniques Distraction,Re-positioning, Timing of Activity with Medications M4 PT-IP Mobility and Gait Start: 05/16/21 11:15 Freq: NEEDED Status: Active Protocol: Document 05/20/21 12:00 SP (Rec: 05/20/21 18:05 SP [id number]) PT-Transfer Assessment Sit to and From Stand Sit to and from Stand Standby Assistance Equipment Transfer Assistive Device Gait Belt,Front Wheeled Walker Orthotic/Prosthetic Devices or Brace: No Transfers Transfer Destination Chair Transfer Technique Stand Step Pivot Transfer Ability Level of Assist Standby Assistance,Use of Upper Extremities Comments Mobility Comments brought acquired PF walker borrowing from friend. VENEER SAWYER removed platforms from FWW , educated not needed, and noted FWW at proper height for pt once in standing. Pt in chair when arrived. donned gait belt over upper back post education in sitting . Sit>stand from chair SBA using UE on chair arms. Progressed gait into hallway using FWW close sBA to stairs, completed 1 PF step w/ FWW cGA, 6 stairs Min A ASSEMBLER FITTER on R, noted trunk way but support provided by safe recovery and gait back to room chair SBA approx 220 ft total. cued pt for increased stride length and foot clearance to improve small stagger stepping , VENEER SAWYER educated stagger step and lack of clearance could be a trip noa, improved corrections with cuing. VENEER SAWYER educated recommending HHPT to improve strength and functional mobility and unable to drive and has to coordinate ride via friends vs taxi so technically home bound until improves could consider outpt therapy if improves, pt and in agreement with HHPT for strength and balance toward PLOF. PT was in chair with all needs and call light in reach with in room before left . Gait Assessment Gait Gait Assistance Required: Standby Assistance Distance (Feet) 220 Able to Maintain Weight Bearing Status Yes During Gait Assistive Devices Assistive Device Gait Belt,Front Wheeled Walker Orthotic/Prosthetic Devices or Brace: No Gait Deviations General Gait Pattern Antalgic,Decreased Stride Length,Decreased Feet Clearance,Narrow Based Gait Factors Limiting Gait Function Factors Limiting Gait Function Decreased Activity Tolerance, Decreased Sensation,Decreased Strength,Pain,Poor Safety Awareness Comments Gait Comments small semi stagger stepping, cued increase stride using fWW sBA Stair Climbing Assessment Evaluation Level of Assist On Stairs Contact Guard Assistance,1 Person Assistance Devices Stair Climbing Assistive Devices None,Front Wheel Walker,Left Railing Technique/Endurance Stair Climbing Direction Ascend and Descend Stair Climbing Technique Step Over Step,Step to Step Number of Steps Climbed 1 Stair Climbing Set # Repetitions (reps) 2 Comments Stair Climbing Comments 1 PF step using fWW CGA via , 3 stairs ASSEMBLER FITTER on R via Min A to assimulated 2 consecutive stairs and 1 PF step going up to front door, L HR x 6 stairs CGA via ascend/descend to assimulate going up to the office if needed with verbalized understanding that will only do with support for safety. PT-Balance Assessment Sitting Balance and Reactions Static Sitting Balance Ability Normal Dynamic Sitting Balance Ability Good Standing Balance and Reactions Static Standing Balance Ability Good Dynamic Standing Balance Ability Good Device Used FWW M5 PT-IP Objective Assessments Start: 05/16/21 11:15 Freq: NEEDED Status: Active Protocol: Document 05/16/21 11:17 LR (Rec: 05/16/21 12:07 LR [id number]) Orientation Orientation/Cognition Level of Alertness Alert Language Function Ability No Deficits Noted Safety Awareness Understands Safety Issues Strength Lower Extremity Strength Hip grossly 3+/5 M6 PT-IP Treatment Start: 05/16/21 11:15 Freq: NEEDED Status: Active Protocol: Document 05/19/21 14:44 SP (Rec: 05/19/21 15:19 SP [id number]) Physical Therapy Treatment Exercises Exercises Ankle Pumps,Seated Knee Flexion/Extension Other Treatments Other Treatment Performed Reeducated to patient re: importance of walking and how walking can help w/gas and BM. Discussed walking with RN and /or MEDICAL RECORDS DIRECTOR mult times a day in order to help abdomen. Discussed safety of walker use . LE ex pre mobility strenthening/ ROM and circulation support. M7 PT-IP Assessment and Plan Start: 05/16/21 11:15 Freq: NEEDED Status: Active Protocol: Document 05/20/21 12:00 SP (Rec: 05/20/21 18:05 SP [id number]) PT Summary Assessment and Plan Summary Impairments Pain,ROM,Strength,Balance, Coordination,Transfers,Gait, Activity Tolerance Progress Towards Goals Progressing Toward Goals,Slow Progress due to Pain,Slow Progress due to Activity Tolerance Assessment Summary SBA during transfers, gait using FWW, 1 PF step CGA with FWW, 3 stairs ASSEMBLER FITTER Min A, 6 stairs L HR for mgt trng completed with for safety home. Pt is ok to return home with when medically cleared. VENEER SAWYER recommending 24/ assist available HHPT for improvement in strength and functional independence. Pt's will coordinate transportation friend vs taxi due to her not able to drive. Goals Bed Mobility Goal Independent Transfer Goal Independent Gait Goal Independent,Front Wheel Walker Gait Distance 150ft Other Goals up/down 12 stairs w/ rail SBA & up/down 2 steps SBA w/o rail Days to Meet Goals 8 Frequency of Treatment Frequency Of Treatment Once a Day Treatment Plan Physical Therapy Treatment Plan Bed Mobility Training,Transfer Training,Gait Training, Therapeutic Exercise,Balance Retraining,Post Op Education, Discharge Planning, Neuromuscular Re-ed Other Recommendations and Next Treatment progress gait further distance Focus and dynamic gait w/ FWW, balance activitites, STS for strengthening. Precautions Abdominal Surgery Precautions Log Roll,Lifting Restrictions, Gait Belt above Incisional Area Weight Bearing Status Weight Bearing Status Full Weight Bearing Recommendations To Nursing Amount of Assist Needed 1 Person Assist Discharge Recommendations PT Discharge Recommendations Home with 24/7 Assist Available,Home Health Equipment Needed for Home Before possible shower chair Discharge Transportation Needs at Discharge Private Vehicle
[2021-05-20 12:45] VITALS: BP 117/70; PULSE 78; RESP 18; TEMP 36.6; O2SAT 98
--- NOTE | 2021-05-20 13:58 | CM.DPC ---
DCP Cont: Per MD and RN, pt's NG tube removed and TPN stopped as pt's diet is now advancing and pt has been able to tolerate some solid foods and awaiting bowel return. Per PT/OT, pt and spouse able to participate in CG training today and recommendation is home with spouse and HH. Spouse does not drive and therefore working on getting a friend set up for transport and assist home when pt is medically stable. SW met bedside with pt and spouse and explained role and they confirm that they are agreeable with d/c to home when medically stable and spouse comfortable providing assist at d/c and they are very open to HH. SW explained HH services and frequency and provided HH Choice List and spouse would like to discuss with her friend to determine if they have a HH preference and took SW contact number to call with her decision. F2F completed but needs Surgeon signature and copy placed on pt chart as well. Plan: SW to follow closely for plan of d/c home when stable and awaiting spouse HH preference and Surgeon signature on F2F. Mila Patterson MSW
--- NOTE | 2021-05-20 14:31 | DIET.PN1 ---
Dietary Progress Note Assessment: 80y M s/p bowel resection currently on TPN, having BMs, flatus, and tolerating small amounts of PO intake. Pt continues TPN today as POs ~10%. Pt scheduled to go home with spouse and HH tomorrow without TPN. Pt expresses suprise that he is having difficulty tolerating moderate PO portions. Ht: 182.88 cm Wt: 68.9 kg BMI: 20.6 UBW: Last BM: 05/20/21 (05/20/21 11:20) MNA: 12 Jose Score: 21 Diet: 05/20/21 Breakfast General (Regular) Diet Diet Modifications: Nutrition Percent Meal Consumed 10% 05/20/21 12:40 Percent Meal Consumed 10% 05/20/21 09:09 Labs: RBC 4.19 X10^6/uL (4.5-5.9) L 05/20/21 06:00 Hgb 12.6 g/dL (13.5-17.5) L 05/20/21 06:00 Hct 37.6 % (41-53) L 05/20/21 06:00 Creatinine 0.76 mg/dL (0.66-1.25) 05/20/21 06:00 Interventions: 1. Using Low Fiber MNT handout and Gradually Increasing Fiber handout, educated pt and spouse on foods to support post-op healing without aggravating anastamosis. Focus on soft proteins like dairy, soft cooked meats, eggs, peeled F/V, soft cooked low fiber grains. Answered all questions. 2. Encouraged pt to consume small frequent meals for the next few weeks to support nutrition status without overdoing it. Electronically Signed by: Cydney Gonzalez 05/20/21 14:31 Clinical Dietitian [address] [id number]
[2021-05-20 16:00] VITALS: BP 154/79; PULSE 72; RESP 18; TEMP 36.5; O2SAT 97
[2021-05-20] MEDS: TRACE ELEMENTS IV (18:29)
[2021-05-20] MEDS: [UNRECOGNIZED DRUG - OTHER] IV (18:29)
[2021-05-20] MEDS: MULTIVITAMIN IV (18:29)
[2021-05-20] MEDS: DEXT IV (18:29)
[2021-05-20] MEDS: CALCIUM IV (18:29)
[2021-05-20] MEDS: LYTES IV (18:29)
[2021-05-20 20:00] VITALS: BP 131/68; PULSE 68; RESP 18; TEMP 36.4; O2SAT 97
[2021-05-21 00:55] VITALS: BP 125/53; PULSE 66; RESP 17; O2SAT 97
[2021-05-21 05:28] VITALS: BP 129/72; PULSE 76; RESP 18; TEMP 36.4; O2SAT 96
[2021-05-21 06:13] LABS: Magnesium 2.2 mg/dL (1.6-2.3); Phosphorous 3.4 mg/dL (2.3-3.7)
[2021-05-21 06:14] LABS: BUN Creatinine Ratio 32.4 (6-22); Blood Urea Nitrogen 23 mg/dL (9-20); Calcium 8.7 mg/dL (8.4-10.2); Carbon Dioxide 26 mmol/L (22-32); Chloride 107 mmol/L (98-107); Estimated Glomerular Filt Rate > 60.0 mL/min (>60); Glucose 119 mg/dL (80-110); HEMOLYSIS < 15 (0-50); Potassium 3.5 mmol/L (3.4-5.1); Sodium 135 mmol/L (137-145)
[2021-05-21 07:35] VITALS: BP 138/79; PULSE 90; RESP 17; TEMP 36.3; O2SAT 97
[2021-05-21] MEDS: TAMSULOSIN 0.4 MG CAPSULE PO ×2 (08:34→08:35)
[2021-05-21] MEDS: SODIUM CHLORIDE 0.9% FLUSH 10 ML IV (08:35)
[2021-05-21] MEDS: ENOXAPARIN 40 MG/0.4 ML SYRINGE SUBCUT (08:35)
--- NOTE | 2021-05-21 09:52 | OT.IP.TRT ---
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) Encounter for follow-up examination after completed treatment for conditions other than malignant neoplasm (05/13/21) Surgery Performed Operation Date: 05/13/21 17:45 Actual Procedures p Flexible Sigmoidoscopy, placement of rectal tube - Juan Krause MD Operation Date: 05/13/21 18:15 <No data on this case meets the specified criteria> Operation Date: 05/14/21 15:15 Actual Procedures p Sigmoid Colon Resection - Juan Krause MD Occupational Therapy Treatment Note M2 OT-IP Current Condition Start: 05/15/21 12:52 Freq: Status: Active Protocol: Document 05/15/21 12:52 [facility] (Rec: 05/15/21 13:06 [facility] [id number]) Occupational Therapy Current Condition Current Condition Evaluation Date 05/15/21 Treatment Diagnosis S/p sigmoid colectomy, decreased mobility Diagnosis Onset Date 05/13/21 Post Operative Precautions Abdominal Surgery Precautions Log Roll,Lifting Restrictions, Gait Belt above Incisional Area M3 OT- IP Subjective and Pain Start: 05/15/21 12:52 Freq: Status: Active Protocol: Document 05/21/21 09:40 [facility] (Rec: 05/21/21 11:20 [facility] [id number]) OT- Subjective Occupational Therapy Visit Type Type Treatment Note Visit Start Time 09:40 Visit Stop Time 09:52 Total Visit Minutes 12 Occupational Therapy Visit Comments Patient Comments Pt states already used the bathroom and did grooming prior. Patient/Caregiver Goals To go home. OT Pain Assessment Pain When Pain Assessed At Rest Pain Present Pain Present Denied Pain M4 OT- IP ADL's Start: 05/15/21 12:52 Freq: Status: Active Protocol: Document 05/20/21 08:58 [facility] (Rec: 05/20/21 13:37 [facility] [id number]) OT [id number] Comments OT Self-Feeding Comments Pt states only able to get down a few bites of chicken noodle soup. OT ADL-Dressing General Eval Upper Body Dressing Ability Standby Assistance Comments OT Dressing Comments Pt able to doff his gown when standing. Pt has a wine cellar stock clerk to use at home for Lb dressing needs and that his is able to assist him. OT ADL-Bathing Comments OT Bathing Comments Pt states has a shower stool. M5 OT- IP IADL's Start: 05/15/21 12:52 Freq: Status: Active Protocol: Document 05/21/21 09:40 [facility] (Rec: 05/21/21 11:20 [facility] [id number]) OT-Instrumental Activities of Daily Living Home Safety Awareness Home Safety Comments Able to go over energy conservation and strategies to prevent a fall with pt. Pt able to states good understanding for all. M6 OT- IP Functional Cognition Start: 05/15/21 12:52 Freq: Status: Active Protocol: Document 05/21/21 09:40 [facility] (Rec: 05/21/21 11:20 [facility] [id number]) Cognitive Factors Limiting Selfcare Function Cognitive Comments Cognitive Assessment Comments Intact, pt states will not drive initially and have his friends with all wheel drive to assist. M7 OT- IP Mobility and Balance Start: 05/15/21 12:52 Freq: Status: Active Protocol: Document 05/20/21 08:58 [facility] (Rec: 05/20/21 13:37 [facility] [id number]) OT- Bed Mobility Assessment Supine to Sit Supine to Sit Assist Standby Assistance Sit to Supine Sit to Supine Assist Standby Assistance OT-Transfer Assessment Sit to and From Stand Sit to and from Stand Standby Assistance Transfers Transfer Ability Standby Assistance,Contact Guard Assistance Technique Transfer Destination Bed,Chair Transfer Technique Stand Step Pivot Devices Transfer Assistive Devices None Comments Mobility Comments SBA to stand from the recliner and CGA for balance stand pivot to the recliner. OT- Balance Assessment Sitting Balance and Reactions Static Sitting Balance Ability Normal Dynamic Sitting Balance Ability Good Standing Balance and Reactions Static Standing Balance Ability Good Dynamic Standing Balance Ability Fair M8 OT- IP Objective Assessments Start: 05/15/21 12:52 Freq: Status: Active Protocol: Document 05/15/21 12:52 [facility] (Rec: 05/15/21 13:06 [facility] [id number]) OT Gross Range of Motion Upper Extremity Range of Motion Assessment Within Functional Limits OT-Muscle Tone Assessment Muscle Tone WNL Yes M9 OT- IP Assessment and Plan Start: 05/15/21 12:52 Freq: Status: Active Protocol: Document 05/21/21 09:40 [facility] (Rec: 05/21/21 11:20 [facility] [id number]) OT Summary Assessment and Plan Potential Rehabilitation Potential Good Analytic Complexity at Evaluation Low Summary Progress Towards Goals Progressing Toward Goals Assessment Summary Pt looking to go home when medically stable. Pt's has a supportive to be able to assist for all needs. Goals Self-Feeding Goal Independent Grooming Goal Independent Dressing Goal Independent Toileting Goal Independent Bathing Goal Independent Toilet Transfer Goal Independent Shower Transfer Goal Independent Days to Meet Goals 4 Frequency of Treatment Frequency Of Treatment Once a Day Treatment Plan OT Treatment Plan Patient/Family Education, Discharge Planning Discharge Recommendations OT Discharge Recommendations Home with Assistance,Home Health Transportation Needs at Discharge Private Vehicle
--- NOTE | 2021-05-21 10:19 | PT.IPTN ---
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) Encounter for follow-up examination after completed treatment for conditions other than malignant neoplasm (05/13/21) Surgery Performed Operation Date: 05/13/21 17:45 Actual Procedures p Flexible Sigmoidoscopy, placement of rectal tube - Juan Krause MD Operation Date: 05/13/21 18:15 <No data on this case meets the specified criteria> Operation Date: 05/14/21 15:15 Actual Procedures p Sigmoid Colon Resection - Juan Krause MD Physical Therapy Treatment Note M2 PT-IP Current Condition Start: 05/16/21 11:15 Freq: NEEDED Status: Active Protocol: Document 05/20/21 12:00 SP (Rec: 05/20/21 18:05 SP [id number]) Physical Therapy Current Condition Current Condition Evaluation Date 05/16/21 Treatment Diagnosis s/p sigmoid colectomy M3 PT-IP Subjective Start: 05/16/21 11:15 Freq: NEEDED Status: Active Protocol: Document 05/21/21 09:59 [place] (Rec: 05/21/21 13:12 [place] [id number]) Subjective Physical Therapy Visit Type Type Treatment Note Visit Start Time 09:59 Visit Stop Time 10:19 Total Visit Minutes 20 Number of TOWER LOADER OPERATOR Visits 3 Physical Therapy Visit Comments Patient Comments Pt agreeable to working with therapy. Patient Goals Return home with to assist him. M4 PT-IP Mobility and Gait Start: 05/16/21 11:15 Freq: NEEDED Status: Active Protocol: Document 05/21/21 09:59 [place] (Rec: 05/21/21 13:12 [place] [id number]) PT-Transfer Assessment Sit to and From Stand Sit to and from Stand Standby Assistance Equipment Transfer Assistive Device Gait Belt,Front Wheeled Walker Orthotic/Prosthetic Devices or Brace: No Transfers Transfer Destination Chair Transfer Technique pt ambulated w/ FWW Transfer Ability Level of Assist Standby Assistance,Use of Upper Extremities Comments Mobility Comments Pt in chair upon arrival from therapy and agreeable to ambulation. Pt SBA for sit<> stand w/ FWW. He then ambulated ~300 ft w/ FWW and CGA. Pt w/ shuffling gait, decreased stride L>R and required frequent cues to increased stride. Pt able to improve gait w/ cues but quickly forgets and returns to shuffling gait. Good use of FWW. Pt returned to room and chair SBA. Pt left in chair w/ all needs in reach. Gait Assessment Gait Gait Assistance Required: Standby Assistance,Contact Guard Assist Distance (Feet) 300 Able to Maintain Weight Bearing Status Yes During Gait Assistive Devices Assistive Device Gait Belt,Front Wheeled Walker Orthotic/Prosthetic Devices or Brace: No Gait Deviations General Gait Pattern Antalgic,Decreased Stride Length,Decreased Feet Clearance,Narrow Based Gait Factors Limiting Gait Function Factors Limiting Gait Function Decreased Activity Tolerance, Decreased Sensation,Decreased Strength,Pain,Poor Safety Awareness Comments Gait Comments Shuffling gait, decreased stride L>R, needs frequent verbal cues to improve. PT-Balance Assessment Sitting Balance and Reactions Static Sitting Balance Ability Normal Dynamic Sitting Balance Ability Good Standing Balance and Reactions Static Standing Balance Ability Good Dynamic Standing Balance Ability Good Device Used FWW M5 PT-IP Objective Assessments Start: 05/16/21 11:15 Freq: NEEDED Status: Active Protocol: Document 05/16/21 11:17 [facility] (Rec: 05/16/21 12:07 [facility] [id number]) Orientation Orientation/Cognition Level of Alertness Alert Language Function Ability No Deficits Noted Safety Awareness Understands Safety Issues Strength Lower Extremity Strength Hip grossly 3+/5 M6 PT-IP Treatment Start: 05/16/21 11:15 Freq: NEEDED Status: Active Protocol: Document 05/21/21 09:59 [place] (Rec: 05/21/21 13:12 KS [id number]) Physical Therapy Treatment Education Education Provided Safety M7 PT-IP Assessment and Plan Start: 05/16/21 11:15 Freq: NEEDED Status: Active Protocol: Document 05/21/21 09:59 [place] (Rec: 05/21/21 13:12 KS [id number]) PT Summary Assessment and Plan Summary Impairments Pain,ROM,Strength,Balance, Coordination,Transfers,Gait, Activity Tolerance Progress Towards Goals Progressing Toward Goals,Slow Progress due to Pain,Slow Progress due to Activity Tolerance Assessment Summary Pt continues to require SNA for transfers, SBA to [facility] for ambulation w/ FWW. Pt w/ good [place] for activity, able to ambulate ~300 ft w/ report of slight fatigue. Pt required frequent cues to avoid shuffling gait. Pt will benefit from HHPT to improve gait and strength. Goals Bed Mobility Goal Independent Transfer Goal Independent Gait Goal Independent,Front Wheel Walker Gait Distance 150ft Other Goals up/down 12 stairs w/ rail SBA & up/down 2 steps SBA w/o rail Days to Meet Goals 8 Frequency of Treatment Frequency Of Treatment Once a Day Treatment Plan Physical Therapy Treatment Plan Bed Mobility Training,Transfer Training,Gait Training, Therapeutic Exercise,Balance Retraining,Post Op Education, Discharge Planning, Neuromuscular Re-ed Other Recommendations and Next Treatment progress gait further distance Focus and dynamic gait w/ FWW, balance activitites, STS for strengthening. Precautions Abdominal Surgery Precautions Log Roll,Lifting Restrictions, Gait Belt above Incisional Area Weight Bearing Status Weight Bearing Status Full Weight Bearing Recommendations To Nursing Amount of Assist Needed 1 Person Assist Discharge Recommendations PT Discharge Recommendations Home with 13/12 Assist Available,Home Health Equipment Needed for Home Before possible shower chair Discharge Transportation Needs at Discharge Private Vehicle
[2021-05-21 11:00] VITALS: BP 123/94; PULSE 77; RESP 18; TEMP 36.6; O2SAT 97
--- NOTE | 2021-05-21 11:43 | PM.DS.1 ---
History of Present Illness History of Present Illness Date Patient Seen: 05/21/21 Time Patient Seen: 11:43 Chief complaint: Gas distention/nausea/vomiting/no bm since yest. Narrative: S/p LAR for sigmoid volvulus, urinary retention (Flomax started), protein malnutrition (treated with TPN while here). Discharge Providers Provider Date of admission: 05/13/21 16:28 Discharge Date: 05/21/21 Primary care physician: Donnell Mascorro MD Consults: 05/15/21 11:20 Consult to Occupational Therapy Evaluate & Treat Comment: Physician Instructions: Evaluate and treat Consult to Physical Therapy Evaluate & Treat Comment: Physician Instructions: Evaluate and Treat Discharge provider: Hawa Brumfield MD Summary Status at Discharge Cognitive/behavioral status at discharge: oriented Functional status at discharge: uses cane/walker Overall status at discharge: patient is progressing back to baseline Time Spent with Patient Time spent: Greater than 30 minutes Exam Vital Signs (past 8 hours): - 05/21/21 05:28 05/21/21 07:35 Temperature 97.6 F 97.4 F L Pulse Rate 76 90 Respiratory Rate 18 17 Blood Pressure 129/72 138/79 Pulse Oximetry 96 97 Oxygen Delivery Method Room Air Oxygen Flow Rate 0 Narrative Exam Narrative: Abdomen is soft with incisional tenderness, no redness. Has serous drainage that is decreasing. Abdominal binder in place. Objective Labs Result Diagrams: 05/20/21 06:00 05/21/21 05:50 Labs: Laboratory Results - last 24 hr 05/21/21 05/21/21 05:50 05:50 Sodium 135 L Potassium 3.5 Chloride 107 Carbon Dioxide 26 BUN 23 H Creatinine 0.71 Estimated GFR > 60.0 BUN/Creatinine Ratio 32.4 H Glucose 119 H Calcium 8.7 Phosphorus 3.4 Magnesium 2.2 PFSH Medical History Acute lymphangitis of right upper extremity Social History household members: spouse Smoking Status: Former smoker Discharge Assessment & Plan Assessment and Plan Assessment: S/p LAR for sigmoid volvulus w/o complication. Serous drainage should resolve (no evidence of fascial separation or infection). H/o urinary retention, started on Flomax this hospital stay. Plan of Treatment: Home with VNS. High protein diet abdominal binder Follow up Dr. Krause 2-4 weeks Discharge Plan Discharge Plan Patient Disposition: Home Health Service Discharge orders & Medications Prescriptions: New tamsulosin [Flomax] 0.4 mg Capsule 0.4 mg PO DAILY Qty: 30 0RF oxycodone 5 mg Tablet 5 mg PO Q4HR PRN (Reason: Pain, Moderate (4-6)) Qty: 20 0RF Continued vitamins A,C,E-kfbq-zkharw [PreserVision AREDS] 14,320-226-200 vwgt-ug-wfhi capsule 1 cap PO BID 0RF coenzyme Q10 [CoQ-10] 30 mg capsule 30 mg PO 3XW 0RF fluticasone propionate 16 GM spray,suspension 1 spray Intranasal QAM Qty: 0 0RF Pulmicort Flexhaler 180 MCG aerosol powdr breath activated 1 puff INH BID Qty: 0 0RF cyanocobalamin (vitamin B-12) [Vitamin B-12] 500 MCG tablet 500 mcg PO QAM Qty: 0 0RF txiyeod-qjf-bwp K6-Y4-iadnfwzx 562-46-0-125 uu-xu-wd-unit Tablet 1 tab PO BID 0RF Follow up/Referrals: Donnell Mascorro MD [Primary Care Provider] - Diet/Activity/Treatments Diet: Diet as Tolerated Skin/Wound/Dressing Care Report to your healthcare provider any signs of infection, such as:: chills, fever, night sweats, increased pain, unusual drainage and unusual redness Visit Report/Discharge Packet Instructions: DI for Colectomy Discharge Data Primary Care Provider: Donnell Mascorro V Quality VTE Deep Vein Thrombosis/Pulmonary Embolism Present on Admission: No
--- NOTE | 2021-05-21 12:05 | PC.NURSE ---
Patient is going to be discharged today. His Picc line with come out and his dressing will be changed before he goes home. Up with physical therapy and tolerated well. Current dressing with some old ss drainage. BT hypoactive x4. Patient is sitting up in his chair and comfortable at this time.
--- NOTE | 2021-05-21 12:20 | CM.DPC ---
DCP Cont: Was able to speak to patient, and patient's , Peggy. Was able to have Dr. Brumfield sign face to face, for patient is leaving today. Spouse had reviewed home health agencies in the area, and had no preference, just the agency that could see him the soonest. She was given brochures for all three agencies. Called [facility], no availabilities until May 27. [facility] is on the calendar. They may have availabilities on May 26. Updated , ordering [facility]. Attempted to reach atilio at [facility], voice mail was full. Called main number and spoke to Yelena in intake about referral. Faxed over face sheet, face to face, orders, H&P, DC Summary, and therapy notes to [facility] for nursing, P.T, and O.T. Explained home health services to spouse. Asked Yelena at [facility] to have spouse, Peggy, as contact and service clerks supervisor for patient. P: Patient is to discharge home today with [facility]. 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 Dinora Robles RN/District Captain
== END 2021-05-21 13:46 | disposition home health service (06) | DRG 329 ==
LOC: ED 13:32 → AC 16:17
PROVIDERS: Emergency Medicine; Admitting Provider Surgery; Emergency Provider Physician Assistant; PCP Internal Medicine; Referring Provider Physician Assistant; Visit Provider Surgery
PROC: 0DJD8ZZ Inspection of Lower Intestinal Tract, Via Natural or Artificial Opening Endoscopic (ICD-10-PCS; CPT 45378; principal; 2021-05-13 17:45)
PROC: 0DTN0ZZ Resection of Sigmoid Colon, Open Approach (ICD-10-PCS; CPT 44140; principal; 2021-05-14 15:15)
DX: K56.2 Volvulus (principal); E43 Unspecified severe protein-calorie malnutrition; Q43.8 Other specified congenital malformations of intestine; R33.9 Retention of urine, unspecified; K56.7 Ileus, unspecified; R00.1 Bradycardia, unspecified; Z20.822 Contact with and (suspected) exposure to COVID-19; Z87.891 Personal history of nicotine dependence; Z68.20 Body mass index [BMI] 20.0-20.9, adult
CPT/HCPCS: 36415; 36569; 36592; 44140; 45378; 51798; 71045; 74018; 74177; 80048; 80053; 81001; 82962; 83690; 83735; 84100; 84134; 84478; 85025; 87635; 93005; 94640; 94760; 94762; 97116; 97162; 97165; 97530; 97535; 99222; 99284; 99285; C9803; B4185; B4189; C9290; J0330; J1100; J1170; J1642; J1650; J2405; J2543; J2704; J2765; J3010; J7613; Q9967

== ENCOUNTER → 2021-09-18 07:21 | Outpatient (CLI) | payer MEDICARE, OTHER, SELFPAY ==
[2021-05-13 17:00] VITALS: BMI 20.6
[2021-09-18 08:22] LABS: Hematocrit 41.2 % (41-53); Hemoglobin 13.7 g/dL (13.5-17.5); Mean Corpuscular HGB Conc 33.3 % (30-36); Mean Corpuscular Hemoglobin 29.6 PG (26-34); Mean Corpuscular Volume 88.8 fL (80-100); Platelet Count 390 X10^3/uL (150-400); Red Blood Cell Count 4.64 X10^6/uL (4.5-5.9); Red Cell Distribution Width 14.5 % (11.6-14.8); White Blood Cell Count 4.7 X10^3/uL (4.5-11.0)
[2021-09-18 08:34] LABS: Alanine Aminotransferase 31 IU/L (<50); Albumin 3.9 g/dL (3.5-5.0); Albumin Globulin Ratio 1.4 (1.0-2.8); Alkaline Phosphatase 77 U/L (38-126); Aspartate Aminotransferase 37 IU/L (17-59); BUN Creatinine Ratio 16.2 (6-22); Bilirubin Total 0.5 mg/dL (0.2-1.3); Blood Urea Nitrogen 16 mg/dL (9-20); Calcium 9.7 mg/dL (8.4-10.2); Carbon Dioxide 29 mmol/L (22-32); Chloride 107 mmol/L (98-107); Cholesterol 187 mg/dL (140-199); Estimated Glomerular Filt Rate > 60 mL/min (>60); Globulin 2.7 g/dL (1.7-4.1); Glucose 95 mg/dL (80-110); HDL Cholesterol 73 mg/dL (40-60); HEMOLYSIS < 15 (0-50); LDL Cholesterol Calculated 103 mg/dL (<100); Potassium 4.4 mmol/L (3.4-5.1); Sodium 140 mmol/L (137-145); Total Protein 6.6 g/dL (6.3-8.2); Triglycerides 56 mg/dL (35-150)
[2021-09-18 09:03] LABS: TSH w/ Reflex to FT4 1.45 uIU/mL (0.47-4.68)
[2021-09-18 09:05] LABS: Prostate Specific Antigen 2.44 ng/mL (0.10-4.00)
== END ==
PROVIDERS: PCP Internal Medicine; Referring Provider Internal Medicine; Visit Provider Internal Medicine
DX: E53.8 Deficiency of other specified B group vitamins (principal); G62.9 Polyneuropathy, unspecified; N40.0 Benign prostatic hyperplasia without lower urinary tract symptoms; E78.2 Mixed hyperlipidemia; N40.1 Benign prostatic hyperplasia with lower urinary tract symptoms; R53.83 Other fatigue
CPT/HCPCS: 36415; 80053; 80061; 84153; 84443; 85027

== ENCOUNTER 2022-01-12 19:07 | Observation (INO) | payer MEDICARE, OTHER, SELFPAY ==
[2021-05-13 17:00] VITALS: BMI 20.6
[2022-01-12 19:41] VITALS: BP 115/78; PULSE 102; RESP 17; TEMP 36.9; O2SAT 96; BMI 21.2
--- NOTE | 2022-01-12 20:02 | DI.RAD.S_ITS ---
PROCEDURE: XR ACUTE ABDOMEN SERIES INDICATIONS: s/p colectomy and surgical hernia repaur, conspipation, TECHNIQUE: One view chest and two views of the abdomen were acquired. COMPARISON: None. FINDINGS: Surgical changes and devices: None. Chest: Lungs are clear. Heart size is normal. No pleural effusions. No pneumoperitoneum. Abdomen: There is gaseous distension of the transverse colon and upper abdominal bowel loops with acute air-fluid levels in small and large bowel. Some small bowel loops are dilated measuring up to 6.6 cm in diameter. Increased quantity of solid stool present over the rectum. No definite free intraperitoneal air. Bones: No suspicious bony lesions. Mild dextroscoliosis of the lumbar spine. IMPRESSION: 1. Gaseous distension both small and large bowel loops with air-fluid levels suspicious for distal obstruction. 2. Solid rectal stool may be causing distal obstruction. Dictated by: Catalina Syed M.D. on 01/12/2022 at 20:45 Approved by: Catalina Syed M.D. on 01/12/2022 at 20:48
[2022-01-12 20:14] LABS: Add Manual Diff / Slide Review NO; Basophils Absolute Auto 0 /uL (0-100); Basophils Percent Auto 0.2 % (0-2); Eosinophils Absolute Auto 0 /uL (0-450); Eosinophils Percent Auto 0.1 % (2-4); Hematocrit 43.6 % (41-53); Hemoglobin 14.7 g/dL (13.5-17.5); Lymphocytes Absolute Auto 700 /uL (1100-4500); Lymphocytes Percent Auto 5.3 % (25-40); Mean Corpuscular HGB Conc 33.8 % (30-36); Mean Corpuscular Hemoglobin 30.3 PG (26-34); Mean Corpuscular Volume 89.8 fL (80-100); Monocytes Absolute Auto 1200 /uL (0-900); Monocytes Percent Auto 9.4 % (3-14); Neutrophils Absolute Auto 10700 /uL (1500-7000); Platelet Count 365 X10^3/uL (150-400); Red Blood Cell Count 4.86 X10^6/uL (4.5-5.9); Red Cell Distribution Width 13.6 % (11.6-14.8); White Blood Cell Count 12.6 X10^3/uL (4.5-11.0)
[2022-01-12 20:29] LABS: Alanine Aminotransferase 19 IU/L (<50); Albumin Globulin Ratio 1.2 (1.0-2.8); Alkaline Phosphatase 96 U/L (38-126); Aspartate Aminotransferase 21 IU/L (17-59); BUN Creatinine Ratio 18.9 (6-22); Bilirubin Total 0.9 mg/dL (0.2-1.3); Blood Urea Nitrogen 17 mg/dL (9-20); Calcium 9.8 mg/dL (8.4-10.2); Carbon Dioxide 29 mmol/L (22-32); Chloride 97 mmol/L (98-107); Estimated Glomerular Filt Rate > 60 mL/min (>60); Globulin 3.4 g/dL (1.7-4.1); Glucose 154 mg/dL (80-110); HEMOLYSIS < 15 (0-50); Lipase 39 U/L (23-300); Potassium 4.2 mmol/L (3.4-5.1); Sodium 132 mmol/L (137-145); Total Protein 7.4 g/dL (6.3-8.2)
[2022-01-12 23:27] VITALS: PULSE 88; O2SAT 96
[2022-01-12 23:28] VITALS: BP 127/102; PULSE 85; RESP 17; O2SAT 97
[2022-01-12 23:30] VITALS: BP 118/77; PULSE 90; O2SAT 96
[2022-01-13] VITALS (29 sets, daily range): BP systolic 91–143; BP diastolic 51–88; PULSE 55–91; RESP 15–24; TEMP 36.3–36.8; O2SAT 92–98; BMI 22.4
[2022-01-13] MEDS: ONDANSETRON 4 MG/2 ML INJ IV (00:24)
[2022-01-13 01:18] LABS: COVID19 -Nasal RAPID Negative (Negative)
--- NOTE | 2022-01-13 01:56 | ED_ITS ---
HPI - General Adult General Chief complaint: Abdominal Pain Stated complaint: Constipation abd pain nausea Time Seen by Provider: 01/13/22 00:03 Source: patient Mode of arrival: Wheelchair History of Present Illness HPI narrative: 81-year-old gentleman who is quite healthy on no chronic medications with an acute sigmoid volvulus in April post hemicolectomy. He had a incisional hernia that was repaired and [place] on December 21 that had a recurrent seroma that was drained and is scheduled for outpatient follow-up on the with anticipation that recurrent seroma will again be percutaneously drained by the surgeon. He has been having significant difficulties with constipation. He states his last bowel movement was January 09. On the he took 3 tbsp of milk of magnesia, on the he took 4 tbsp of milk of magnesia. In the emergency room he this afternoon he states that he had a very small bowel movement but continues to have significant distension and moderate abdominal pain. He denies fever although his reports that a temperature of 99? is a significant elevation for him. No cough, palpitations, orthopnea, dyspnea, lower extremity edema he does note that with the increased distension he has been increasingly nauseated and had a couple of episodes of vomiting. He finds that he has not been able to do as much and eating has caused emesis over the last 48 hours. He notes that he is passing gas but it is of minimal amount only. Related Data Home Medications Medication Instructions Recorded Confirmed budesonide 180 mcg/actuation 1 puff INH BID ##0 04/13/16 09/16/21 breath activated powder inhaler (Pulmicort Flexhaler) cyanocobalamin (vitamin B-12) 500 500 mcg PO QAM ##0 04/13/16 09/16/21 mcg tablet (Vitamin B-12) fluticasone propionate 50 1 spray intranasal QAM ##0 04/13/16 09/16/21 mcg/actuation nasal spray,suspension coenzyme Q10 30 mg capsule (CoQ-10) 30 mg PO 3XW 05/19/18 09/16/21 vitamins A,C,R-gnaz-ytelze 14,320 1 cap PO BID 05/19/18 09/16/21 unit-226 mg-200 unit capsule (PreserVision AREDS) iykmcdg-god-rkt R4-A2-btchzmqf 250 1 tab PO BID 05/13/21 09/16/21 mg-40 mg-5 mg-125 unit tablet albuterol sulfate 90 mcg/actuation 2 puff inhalation Q6H PRN 05/27/21 09/16/21 aerosol inhaler cephalexin 500 mg capsule 500 mg PO QID 06/10/21 06/17/21 Allergies Allergy/AdvReac Type Severity Reaction Status Date / Time adhesive tape AdvReac Rash Verified 06/17/21 14:27 Review of Systems Review of Systems Narrative: Remainder of complete review of systems is otherwise unremarkable except for that included in the HPI. Patient History Medical History Acute lymphangitis of right upper extremity Allergic rhinitis due to pollen B12 deficiency BPH without obstruction/lower urinary tract symptoms Mild intermittent asthma Polyneuropathy Ventral hernia Social History household members: spouse Smoking Status: Never smoker Smoking Status: Never smoker alcohol intake frequency: 0-2 drinks per day Alcohol type: hard liquor Substance Use Type: does not use Exam Initial Vital Signs Initial Vital Signs: Vital Signs Temperature 98.4 F 01/12/22 19:41 Pulse Rate 102 H 01/12/22 19:41 Respiratory Rate 17 01/12/22 19:41 Blood Pressure 115/78 01/12/22 19:41 Pulse Oximetry 96 01/12/22 19:41 Oxygen Delivery Method 01/12/22 19:41 General: Healthy appearing, in mild distress. Able to give a complete and coherent history. Well-nourished well-developed HEENT: Moist mucous membranes, normal sclera with reactive pupils, Neck: No JVD, supple Respiratory: Lungs are clear to auscultation, no wheezing no rales no rhonchi. Full and symmetrical air movement Cardiac: Regular rate and rhythm no murmurs no bruits Abdomen: Distended and tympanitic without being significantly tender. Certainly no rebound or guarding. He has a bulge consistent with his described seroma just to the left of his lower abdominal surgical incision that appears unremarkable, is not particularly tender to palpation and is not warm to the touch or red. Rectal exam: I he has a small amount of very soft stool and is not obstipated Skin: Warm and dry, no rashes Neurologic: Grossly neurologically intact with no obvious asymmetries or abnormalities Extremities: No trauma, well perfused Psych: Cooperative, appropriate insight and affect Course Orders Ordered: ED Orders 01/12/22 20:00 Complete Blood Count AUTO DIFF Stat Comprehensive Metabolic Panel Stat Lipase Stat 01/12/22 20:02 XR acute abdomen series Stat 01/13/22 00:51 COVID19 -Nasal RAPID/Pre-Proc Stat 01/13/22 02:18 CT abdomen pelvis w con Stat Discontinued Medications Ondansetron HCl (Ondansetron 4 Mg/2 Ml Inj) 4 mg IV NOW ONE Stop: 01/12/22 23:27 Last Admin: 01/13/22 00:24 Dose: 4 mg Documented By: YENNY Vital Signs Vital signs: Vital Signs - 8 hr 01/12/22 19:41 01/12/22 23:28 01/12/22 23:27 Temperature 98.4 F Pulse Rate 102 H 85 88 Respiratory Rate 17 17 Blood Pressure 115/78 127/102 H Pulse Oximetry 96 97 96 Oxygen Delivery Method Room Air Room Air 01/12/22 23:30 01/12/22 23:30 01/13/22 00:00 Temperature Pulse Rate 90 Respiratory Rate Blood Pressure 118/77 122/76 Pulse Oximetry 96 Oxygen Delivery Method 01/13/22 00:00 01/13/22 00:41 01/13/22 00:41 Temperature Pulse Rate 85 91 H Respiratory Rate Blood Pressure 133/78 Pulse Oximetry 94 96 Oxygen Delivery Method 01/13/22 01:00 01/13/22 01:30 01/13/22 02:00 Temperature Pulse Rate 86 83 81 Respiratory Rate Blood Pressure Pulse Oximetry 95 96 96 Oxygen Delivery Method 01/13/22 02:30 Temperature Pulse Rate 78 Respiratory Rate Blood Pressure Pulse Oximetry 94 Oxygen Delivery Method Medical Decision Making Lab Data Result diagrams: 01/12/22 20:00 01/12/22 20:00 Labs: Lab Results 01/12/22 01/12/22 01/13/22 Range/Units 20:00 20:00 00:51 WBC 12.6 H (4.5-11.0) X10^3/uL RBC 4.86 (4.5-5.9) X10^6/uL Hgb 14.7 (13.5-17.5) g/dL Hct 43.6 (41-53) % MCV 89.8 (80-100) fL MCH 30.3 (26-34) PG MCHC 33.8 (30-36) % RDW 13.6 (11.6-14.8) % Plt Count 365 (150-400) X10^3/uL Neut % (Auto) 85.0 H (50-75) % Lymph % (Auto) 5.3 L (25-40) % [place] % (Auto) 9.4 (3-14) % Eos % (Auto) 0.1 L (2-4) % Baso % (Auto) 0.2 (0-2) % Neut # (Auto) 76764 H (9644-5104) /uL Lymph # (Auto) 700 L (2374-4892) /uL [place] # (Auto) 1200 H (0-900) /uL Eos # (Auto) 0 (0-450) /uL Baso # (Auto) 0 (0-100) /uL Sodium 132 L (137-145) mmol/L Potassium 4.2 (3.4-5.1) mmol/L Chloride 97 L (98-107) mmol/L Carbon Dioxide 29 (22-32) mmol/L BUN 17 (9-20) mg/dL Creatinine 0.90 (0.66-1.25) mg/dL Estimated GFR > 60 (>60) mL/min BUN/Creatinine Ratio 18.9 (6-22) Glucose 154 H (80-110) mg/dL Calcium 9.8 (8.4-10.2) mg/dL Total Bilirubin 0.9 (0.2-1.3) mg/dL AST 21 (17-59) IU/L ALT 19 (<50) IU/L Alkaline Phosphatase 96 (38-126) U/L Total Protein 7.4 (6.3-8.2) g/dL Albumin 4.0 (3.5-5.0) g/dL Globulin 3.4 (1.7-4.1) g/dL Albumin/Globulin Ratio 1.2 (1.0-2.8) Lipase 39 (23-300) U/L SARS-CoV-2 (PCR) Negative (Negative) Imaging Data CT scan - abdomen/pelvis: Radiologist's Impression: Moderate to high-grade small-bowel obstruction secondary to an umbilical hernia containing a small bowel loop MD Chaim [facility] Narrative Medical decision making narrative: 81-year-old gentleman presents with increasing abdominal pain distension and difficulty having a bowel movement for the last 3 days. Bili is distended but otherwise not particularly tender. He does not have any impacted stool in the rectum. CT shows a small bowel obstruction secondary to an umbilical hernia. He had a sigmoid volvulus surgery in April and an abdominal wall hernia repair December 23. Care is reviewed with Dr. Brumfield and patient will be admitted to her service with anticipation of surgical intervention for his bowel obstruction secondary to umbilical hernia. Discharge Plan Departure Patient Disposition: Admitted As Inpatient Prescriptions: No Action vitamins A,C,F-oszm-ghbhml [PreserVision AREDS] 14,320-226-200 kfvi-ea-jery capsule 1 cap PO BID coenzyme Q10 [CoQ-10] 30 mg capsule 30 mg PO 3XW fluticasone propionate 16 GM spray,suspension 1 spray Intranasal QAM Qty: 0 Pulmicort Flexhaler 180 MCG aerosol powdr breath activated 1 puff INH BID Qty: 0 cyanocobalamin (vitamin B-12) [Vitamin B-12] 500 MCG tablet 500 mcg PO QAM Qty: 0 albuterol sulfate 90 mcg/actuation HFA aerosol inhaler 2 puff inhalation Q6H PRN cephalexin 500 mg capsule 500 mg PO QID dpjcnsg-lti-kxv W9-I0-lhjkqsfz 580-00-9-125 bs-kt-gu-unit Tablet 1 tab PO BID Referrals: Donnell Mascorro MD [Primary Care Provider] - Admit Date/Time: 01/13/22 03:51
--- NOTE | 2022-01-13 02:18 | DI.CT.S_ITS ---
PROCEDURE: CT ABDOMEN PELVIS W CON INDICATIONS: distended abdomen TECHNIQUE: After the administration of intravenous contrast, axial sections acquired from the lung bases to the pubic symphysis. Coronal and sagittal reformats were performed. For radiation dose reduction, the following was used: automated exposure control, adjustment of mA and/or kV according to patient size. COMPARISON: None. FINDINGS: Image quality: Excellent. Lung bases: Unremarkable. Heart: No significant findings. ABDOMEN: Liver: Unremarkable. Gallbladder: Unremarkable. Biliary ducts: Unremarkable. Pancreas: Unremarkable. Spleen: Unremarkable. Adrenal Glands: Unremarkable. Kidneys and Ureters: Unremarkable. Stomach and Bowel: Moderate to high-grade small-bowel obstruction secondary to an incarcerated small bowel loop in a narrow diameter periumbilical hernia. Remote partial distal colectomy. Peritoneum: No abnormal intraperitoneal fluid. No free air. Ventral Wall: A small diameter periumbilical hernia contains an incarcerated obstructed small bowel loop, resulting in moderate to high-grade small-bowel obstruction. Abdominal Nodes: No retroperitoneal or mesenteric adenopathy by size criteria. Vessels: Aorta and inferior vena cava are normal in size. PELVIS: Pelvic Organs: Unremarkable. Bladder: Unremarkable. Pelvic Nodes: No enlarged lymph nodes. Miscellaneous: No hernias are seen. Bones: Lumbar degenerative change. No lytic or blastic bony lesions. No compression fractures. IMPRESSION: A narrow diameter umbilical hernia has resulted in incarceration of a small bowel loop and development of moderate to high-grade small-bowel obstruction. Comment: Final report is concordant with preliminary interpretation provided by [facility]. Dictated by: Trae Márquez M.D. on 01/13/2022 at 8:06 Approved by: Trae Márquez M.D. on 01/13/2022 at 8:11
[2022-01-13] MEDS: SODIUM CHLORIDE 0.9% 1,000 ML 1000 ML IV (03:55)
[2022-01-13] MEDS: LACTATED RINGERS 1,000 ML 100 ML IV (05:52)
[2022-01-13 06:19] LABS: RBC Urine 1-5/HPF (0-5/HPF); Squamous Epithelial Cell Urine 0-1 /HPF (0-5/HPF); WBC Urine 0-1/HPF (0-5/HPF)
[2022-01-13 06:20] LABS: Bacteria Urine Few (2-10); Culture Indicated Urine Cult Not Indicated; Hyaline Casts Urine 0-1/LPF; Mucus Urine 1+ (Negative)
[2022-01-13] MEDS: ACETAMINOPHEN 325 MG TABLET 650 MG PO (07:23)
--- NOTE | 2022-01-13 11:33 | PC.NURSE ---
MD Brumfield called to update. Reports that she looked at CT scan with MD that did pts hernia surgery and that it is a seroma that is showing on the scan, not the hernia, and constipation. Would like to try a fleets enema. No plan for surgery at this time.
--- NOTE | 2022-01-13 12:35 | PC.NURSE ---
Day Shift Pt arrived from ER 1230 , denies any pain, Call light placed within reach, Urinal placed at bedside, VS WNL (Pt BP was 111/56), RA 97%, Pt placed as fall risk and told to use call light prior to getting up Pt verbalized understanding and agreed. Pt denies nausea at this time and currently eating. Reports mild pain in abdominal area Tender to touch.
[2022-01-13] MEDS: cephALEXin 250 MG CAPSULE 500 MG PO ×2 (13:04→16:47)
--- NOTE | 2022-01-13 13:05 | PT-IP ANOTE ---
EMR reviewed and pt has planned surgery later on today. Talked with charge nurse and informed d/c PT eval at this time and will await PT eval after surgery. nurse agreed.
--- NOTE | 2022-01-13 17:48 | PM.HP.1 ---
History of Present Illness History of Present Illness Date Patient Seen: 01/13/22 Time Patient Seen: 17:48 Chief complaint: Constipation abd pain nausea Narrative: Patient was here back in April 2021 and underwent sigmoid colectomy for volvulus. Had an incisional hernia done [address] Luo in [facility]. Was seen last week for aspiration of wound seroma and placed on po antibiotics. Here today for abdominal pain and constipation. Radiology reading was concerning for incarcerated, recurrent ventral hernia and associated SBO. That is not the case, there is colonic obstruction due to stool and a recurrent wound seroma. No fever, normal WBC with hydration. And patient began to move his bowels without any intervention on our part except hydration. Patient History Medical History Acute lymphangitis of right upper extremity Allergic rhinitis due to pollen B12 deficiency BPH without obstruction/lower urinary tract symptoms Mild intermittent asthma Polyneuropathy Ventral hernia Family & Social History Social History: household members spouse Prior Living Arrangements House Safety & Behavioral: Feels Safe in Current Yes Environment Tobacco & Substance use: Tobacco type cigars Smoking Status Never smoker alcohol intake current alcohol intake frequency 0-2 drinks per day Substance Use Type does not use Meds Home Medications and Allergies Home Medications Medication Instructions Recorded Confirmed Type budesonide 180 mcg/actuation 1 puff INH BID ##0 04/13/16 01/13/22 History breath activated powder inhaler (Pulmicort Flexhaler) cyanocobalamin (vitamin B-12) 500 500 mcg PO QAM ##0 04/13/16 01/13/22 History mcg tablet (Vitamin B-12) fluticasone propionate 50 1 spray intranasal QAM ##0 04/13/16 01/13/22 History mcg/actuation nasal spray,suspension vitamins A,C,R-dgoe-helkdf 14,320 1 cap PO BID 05/19/18 01/13/22 History unit-226 mg-200 unit capsule (PreserVision AREDS) bxznrth-vnb-amq E6-J2-rydtgkpl 250 1 tab PO BID 05/13/21 01/13/22 History mg-40 mg-5 mg-125 unit tablet albuterol sulfate 90 mcg/actuation 2 puff inhalation Q6H PRN 05/27/21 01/13/22 History aerosol inhaler Shortness Of Breath Allergies Allergy/AdvReac Type Severity Reaction Status Date / Time adhesive tape AdvReac Rash Verified 06/17/21 14:27 Review of Systems Review of Systems Narrative: long h/o intermittent constipation with liquid stools even after the sigmoid colectomy ROS: Yes All systems reviewed with the patient and are negative except as otherwise documented Exam Vital Signs (past 8 hours): - 01/13/22 10:00 01/13/22 10:00 01/13/22 10:30 Temperature Pulse Rate 56 L 55 L Respiratory Rate 15 15 Blood Pressure 111/56 L Pulse Oximetry 97 96 Oxygen Flow Rate 01/13/22 11:00 01/13/22 11:30 01/13/22 12:25 Temperature 97.4 F L Pulse Rate 59 L 71 71 Respiratory Rate 15 19 16 Blood Pressure 111/62 Pulse Oximetry 96 97 97 Oxygen Flow Rate 0 Oxygen Delivery Method Room Air Oxygen Flow Rate 0 Const General: cooperative, healthy appearing and comfortable Nutritional Appearance: thin HENMT Head: normal to inspection, normocephalic and atraumatic Eyes General: appearance normal, both eyes and all related structures Sclera: sclerae normal Neck Neck: trachea midline Chest Chest: normal inspection of the chest Resp Effort & Inspection: normal respiratory effort and able to speak in complete sentences Cardio Rate: regular rate Rhythm: regular rhythm GI Palpation: soft and tender Other: Slight kip coloration to tense abdominal wound with clear seroma. Skin General: no rashes or lesions noted and turgor normal Neuro General: patient alert, patient awake and patient oriented x3 Cognition: normal cognition Extrem General: normal to inspection and no pedal edema Psych Appearance: grossly normal Attitude: cooperative Judgment: judgment good Objective Labs Result Diagrams: 01/12/22 20:00 01/12/22 20:00 Labs: Laboratory Results - last 24 hr 01/12/22 01/12/22 01/13/22 20:00 20:00 00:51 WBC 12.6 H RBC 4.86 Hgb 14.7 Hct 43.6 MCV 89.8 MCH 30.3 MCHC 33.8 RDW 13.6 Plt Count 365 Neut % (Auto) 85.0 H Lymph % (Auto) 5.[address] [place] % (Auto) 9.4 Eos % (Auto) 0.1 L Baso % (Auto) 0.2 Neut # (Auto) 57677 H Lymph # (Auto) [address] [place] # (Auto) 1200 H Eos # (Auto) 0 Baso # (Auto) 0 Sodium 132 L Potassium 4.2 Chloride 97 L Carbon Dioxide 29 BUN 17 Creatinine 0.90 Estimated GFR > 60 BUN/Creatinine Ratio 18.9 Glucose 154 H Calcium 9.8 Total Bilirubin 0.9 AST 21 ALT 19 Alkaline Phosphatase 96 Total Protein 7.4 Albumin 4.0 Globulin 3.4 Albumin/Globulin Ratio 1.2 Lipase 39 Urine RBC Urine WBC Ur Squamous Epith Cells Urine Bacteria Hyaline Casts Urine Mucus Ur Culture Indicated? SARS-CoV-2 (PCR) Negative 01/13/22 05:35 WBC RBC Hgb Hct MCV MCH MCHC RDW Plt Count Neut % (Auto) Lymph % (Auto) [place] % (Auto) Eos % (Auto) Baso % (Auto) Neut # (Auto) Lymph # (Auto) [place] # (Auto) Eos # (Auto) Baso # (Auto) Sodium Potassium Chloride Carbon Dioxide BUN Creatinine Estimated GFR BUN/Creatinine Ratio Glucose Calcium Total Bilirubin AST ALT Alkaline Phosphatase Total Protein Albumin Globulin Albumin/Globulin Ratio Lipase Urine RBC 1-5/hpf Urine WBC 0-1/hpf Ur Squamous Epith Cells 0-1 /hpf Urine Bacteria Few (2-10) H Hyaline Casts 0-1/lpf Urine Mucus 1+ H Ur Culture Indicated? Cult not indicated SARS-CoV-2 (PCR) Assessment & Plan Assessment & Plan narrative: Constipation with colonic obstruction. s/p incisional hernia repair with postop seroma being followed by Dr. Cortes in [facility] (has appointment tomorrow) Plan: High fiber diet and hydration at home Keep surgeon appointment tomorrow and continue po antibiotics, early infection is possible. COVID-19 COVID-19 status: Negative Time Spent With Patient Time with patient: 50 to 69 minutes with 50% spent counseling/coordinating care Critical Care time: I spent a total of [] minutes of critical care time on this patient's care today; this time is exclusive of procedural time.
--- NOTE | 2022-01-13 17:52 | PC.NURSE ---
Day shift: Patient left unit at approx 1700. paperwork signed and all questions answered. No new MD scripts. Pt to see Delfina GARCÍA tomorrow and he plans to do so. Taken to car via WC by TAYLOR Florian. VS remain WNL. RA 97%. Healing ABD scar/incision LASHANDA w/ no s/s of infection. Pt has all personal belongings. Spouse in room for d/c teachings.
--- NOTE | 2022-01-13 19:13 | PM.DS.1 ---
History of Present Illness History of Present Illness Date Patient Seen: 01/13/22 Time Patient Seen: 19:13 Chief complaint: Constipation abd pain nausea Narrative: Patient was here back in April 2021 and underwent sigmoid colectomy for volvulus. Had an incisional hernia done [address] Luo in [facility]. Was seen last week for aspiration of wound seroma and placed on po antibiotics. Here today for abdominal pain and constipation. Radiology reading was concerning for incarcerated, recurrent ventral hernia and associated SBO. That is not the case, there is colonic obstruction due to stool and a recurrent wound seroma. No fever, normal WBC with hydration. And patient began to move his bowels without any intervention on our part except hydration. Discharge Providers Provider Date of admission: 01/13/22 03:51 Discharge Date: 01/13/22 Primary care physician: Donnell Mascorro MD Consults: 01/13/22 03:57 Consult to Discharge Planning Routine Comment: financial 01/13/22 03:58 Consult to Physical Therapy Evaluate & Treat Comment: Physician Instructions: Evaluate and Treat Discharge provider: Hawa Brumfield MD Summary Hospital Course Discharge Diagnosis: constipation S/p incisional hernia repair with postop seroma Hospital Course: spontaneous resolution of constipation. Seroma will be addressed by original surgeon in clinic tomorrow. continue taking antibiotics he prescribed. Status at Discharge Cognitive/behavioral status at discharge: at baseline, oriented Overall status at discharge: patient is progressing back to baseline Time Spent with Patient Time spent: Less than 30 minutes Exam Vital Signs (past 8 hours): - 01/13/22 11:30 01/13/22 12:25 Temperature 97.4 F L Pulse Rate 71 71 Respiratory Rate 19 16 Blood Pressure 111/62 Pulse Oximetry 97 97 Oxygen Flow Rate 0 Oxygen Delivery Method Room Air Oxygen Flow Rate 0 Narrative Exam Narrative: unchanged from H and P Objective Labs Result Diagrams: 01/12/22 20:00 01/12/22 20:00 Labs: Laboratory Results - last 24 hr 01/12/22 01/12/22 01/13/22 20:00 20:00 00:51 WBC 12.6 H RBC 4.86 Hgb 14.7 Hct 43.6 MCV 89.8 MCH 30.3 MCHC 33.8 RDW 13.6 Plt Count 365 Neut % (Auto) 85.0 H Lymph % (Auto) 5.3 L [place] % (Auto) 9.4 Eos % (Auto) 0.1 L Baso % (Auto) 0.2 Neut # (Auto) 54653 H Lymph # (Auto) 700 L [place] # (Auto) 1200 H Eos # (Auto) 0 Baso # (Auto) 0 Sodium 132 L Potassium 4.2 Chloride 97 L Carbon Dioxide 29 BUN 17 Creatinine 0.90 Estimated GFR > 60 BUN/Creatinine Ratio 18.9 Glucose 154 H Calcium 9.8 Total Bilirubin 0.9 AST 21 ALT 19 Alkaline Phosphatase 96 Total Protein 7.4 Albumin 4.0 Globulin 3.4 Albumin/Globulin Ratio 1.2 Lipase 39 Urine RBC Urine WBC Ur Squamous Epith Cells Urine Bacteria Hyaline Casts Urine Mucus Ur Culture Indicated? SARS-CoV-2 (PCR) Negative 01/13/22 05:35 WBC RBC Hgb Hct MCV MCH MCHC RDW Plt Count Neut % (Auto) Lymph % (Auto) [place] % (Auto) Eos % (Auto) Baso % (Auto) Neut # (Auto) Lymph # (Auto) [place] # (Auto) Eos # (Auto) Baso # (Auto) Sodium Potassium Chloride Carbon Dioxide BUN Creatinine Estimated GFR BUN/Creatinine Ratio Glucose Calcium Total Bilirubin AST ALT Alkaline Phosphatase Total Protein Albumin Globulin Albumin/Globulin Ratio Lipase Urine RBC 1-5/hpf Urine WBC 0-1/hpf Ur Squamous Epith Cells 0-1 /hpf Urine Bacteria Few (2-10) H Hyaline Casts 0-1/lpf Urine Mucus 1+ H Ur Culture Indicated? Cult not indicated SARS-CoV-2 (PCR) [facility] History Acute lymphangitis of right upper extremity Allergic rhinitis due to pollen B12 deficiency BPH without obstruction/lower urinary tract symptoms Mild intermittent asthma Polyneuropathy Ventral hernia Social History household members: spouse Smoking Status: Never smoker alcohol intake: current Discharge Assessment & Plan Assessment and Plan Assessment: resolved constipation postop seroma Plan of Treatment: advance diet as tolerated, high fiber diet 20-30 gms per day. follow up with Sophia for seroma management. Discharge Plan Discharge Plan Patient Disposition: Home Provider Discharge Comment: Keep you appointment tomorrow with [facility] surgeon Discharge orders & Medications Prescriptions: Continued vitamins A,C,J-ltvb-dmgzqg [PreserVision AREDS] 14,320-226-200 ttqu-rm-fgnc capsule 1 cap PO BID fluticasone propionate 16 GM spray,suspension 1 spray Intranasal QAM Qty: 0 Pulmicort Flexhaler 180 MCG aerosol powdr breath activated 1 puff INH BID Qty: 0 cyanocobalamin (vitamin B-12) [Vitamin B-12] 500 MCG tablet 500 mcg PO QAM Qty: 0 albuterol sulfate 90 mcg/actuation HFA aerosol inhaler 2 puff inhalation Q6H PRN (Reason: Shortness Of Breath) aqvvjie-tzg-wxe [id number]-pbjozplq [id number] nx-dx-uf-unit Tablet 1 tab PO BID Follow up/Referrals: Donnell Mascorro MD [Primary Care Provider] - Diet/Activity/Treatments Diet: Diet as Tolerated Diet comment: 20 to 30 gms of fiber daily with adequate hydration Visit Report/Discharge Packet Instructions: Small Bowel Obstruction, DI for Small Bowel Obstruction Stand Alone Forms: Surgery Discharge Discharge Data Primary Care Provider: Donnell Mascorro V
== END 2022-01-13 17:56 | disposition home or self-care (01) ==
LOC: ED 01-13 00:03 → AC 01-13 03:55
PROVIDERS: Admitting Provider Surgery; Emergency Provider Emergency Medicine; PCP Internal Medicine; Referring Provider Emergency Medicine; Visit Provider Surgery
DX: K59.00 Constipation, unspecified (principal); R11.2 Nausea with vomiting, unspecified; L76.34 Postprocedural seroma of skin and subcutaneous tissue following other procedure; Z20.822 Contact with and (suspected) exposure to COVID-19
CPT/HCPCS: 36415; 74022; 74177; 80053; 81003; 81015; 83690; 85025; 87635; 96361; 96374; 99234; 99284; C9803; G0378; J2405; Q9967

== ENCOUNTER 2022-03-08 19:38 | Inpatient (IN) | payer MEDICARE, OTHER, SELFPAY ==
[2022-01-13 13:03] VITALS: BMI 22.4
[2022-03-08] VITALS (19 sets, daily range): BP systolic 98–134; BP diastolic 51–63; PULSE 50–80; RESP 16–29; TEMP 36.6–36.8; O2SAT 96–99; BMI 19.6; BMI 20.6
--- NOTE | 2022-03-08 19:44 | ED_ITS ---
HPI - Abdominal Pain General Chief Complaint: Abdominal Pain Stated Complaint: Chest Pain Time Seen by Provider: 03/08/22 19:39 History of Present Illness HPI narrative: 81-year-old male nonsmoker with history of prior bowel obstruction resulting in colectomy last and subsequent ventral hernia requiring repair in the aftermath presents by EMS for evaluation of gradually worsening abdominal pain and distention over the past week. He states he is had poor appetite and anythi ng he eats seems to come right back up. He is still having bowel movements without change in passing gas without difficulty. He denies dysuria, frequency or urgency. He is not dizzy nor weak or lightheaded and has had no fever chills. He denies chest pain or shortness of breath nor any cough, runny nose or sore throat. His pain is persistent and gradually worsening and radiates to his back. Related Data Home Medications Medication Instructions Recorded Confirmed cyanocobalamin (vitamin B-12) 500 1,000 mcg PO QAM ##0 04/13/16 03/09/22 mcg tablet (Vitamin B-12) fluticasone propionate 50 1 spray intranasal QAM ##0 04/13/16 03/09/22 mcg/actuation nasal spray,suspension vitamins A,C,Q-owgd-rtuodh 14,320 1 cap PO BID 05/19/18 03/09/22 unit-226 mg-200 unit capsule (PreserVision AREDS) yzxszce-kuu-mlh Q1-W7-mxbjtkqc 250 1 tab PO BID 05/13/21 03/09/22 mg-40 mg-5 mg-125 unit tablet albuterol sulfate 90 mcg/actuation 2 puff inhalation Q6H PRN 05/27/21 03/09/22 aerosol inhaler Shortness Of Breath budesonide 180 mcg/actuation 90 mcg inhalation DAILY 03/09/22 03/09/22 breath activated powder inhaler (Pulmicort Flexhaler) Allergies Allergy/AdvReac Type Severity Reaction Status Date / Time adhesive tape AdvReac Rash Verified 06/17/21 14:27 Review of Systems Review of Systems Narrative: GENERAL: Denies chills, fatigue, malaise, fever, sweats. HEENT: Denies sinus pain, ear pain, sore throat, difficulty swallowing, dizziness. RESPIRATORY: Denies dyspnea, cough, wheezing, hemoptysis, sputum. CARDIOVASCULAR: Denies chest pain, palpitations, orthopnea, edema, GASTROINTESTINAL: See HPI : Denies dysuria, frequency, incontinence, hematuria, urinary retention. MUSCULOSKELETAL: denies weakness, joint pain, or bony pain SKIN: Denies rash, skin lesions, or other NEUROLOGIC: Denies weakness, headache, numbness, change in speech, confusion, seizures, incoordination. PSYCHIATRIC: No concerning psychosocial issues. 12 point review of systems is negative except for those stated above Patient History Medical History Acute lymphangitis of right upper extremity Allergic rhinitis due to pollen B12 deficiency BPH without obstruction/lower urinary tract symptoms Mild intermittent asthma Polyneuropathy Ventral hernia Surgical History (Updated 03/09/22 @ 02:35 by ESTEFANI Bronson) History of colectomy History of transurethral resection of prostate Family History Mother Hypertension Father Parkinsons Social History household members: spouse Smoking Status: Never smoker alcohol intake: current Smoking Status: Never smoker alcohol intake frequency: 0-2 drinks per day Alcohol type: hard liquor Substance Use Type: does not use Exam Narrative Exam Narrative: GENERAL: [81] year old patient appears stated age. Well-developed patient, in mild distress. HEAD: Atraumatic. Normocephalic. EYES: Pupils equal round and reactive. Extraocular motions intact. No scleral icterus. No injection or drainage. ENT: Nose without bleeding, purulent drainage. Throat without erythema, tonsillar hypertrophy or exudate. Airway patent. NECK: Trachea midline. Non tender CARDIOVASCULAR: Regular rate and rhythm without murmurs, gallops, or rubs. RESPIRATORY: Clear to auscultation. Breath sounds equal bilaterally. No wheezes, rales, or rhonchi. GASTROINTESTINAL: Distended with generalized tenderness most notable in the epigastrium bowel sounds present EXTREMITIES: No edema or joint tenderness. BACK: Nontender without deformity or crepitance. No flank tenderness. NEURO: AOx3. SKIN: No rash or erythema of visible areas Initial Vital Signs Initial Vital Signs: Vital Signs Pulse Rate 80 03/08/22 19:43 Respiratory Rate 29 H 03/08/22 19:43 Pulse Oximetry 96 03/08/22 19:43 Course Orders Ordered: ED Orders 03/08/22 21:53 COVID19 -Nasal RAPID/Pre-Proc Stat Acetaminophen (Acetaminophen 650 Mg Supp) 650 mg NM Q4HR PRN PRN Reason: Fever/Mild Pain (1-3) Albuterol (Albuterol 2.5 Mg/3 Ml Neb (Adult)) 2.5 mg INH Q6H PRN PRN Reason: Shortness Of Breath Budesonide (Budesonide 0.5 Mg/2 Ml Neb) 0.5 mg INH RTBID PRINCE Sodium Chloride (Normal Saline 0.9%) 1,000 mls @ 60 mls/hr IV CONT PRINCE Last Admin: 03/08/22 23:51 Dose: 60 mls/hr Documented By: DEAN Ondansetron HCl (Ondansetron 4 Mg/2 Ml Inj) 4 mg IV Q8HR PRN PRN Reason: Nausea And Vomiting Discontinued Medications Sodium Chloride (Normal Saline 0.9%) 1,000 mls @ 150 mls/hr IV CONT PRINCE Last Infusion: 03/08/22 23:05 Dose: 0 mls/hr Documented By: Infusion: 03/08/22 23:05 Dose: 0 mls/hr Documented By: Admin: 03/08/22 20:12 Dose: 150 mls/hr Documented By: RB Consultations Consultation #1: Discussed with on-call surgeon, Dr. Brumfield, we have reviewed patient's history and physical exam as well as labs. She is happy to be involved in consultation and request patient be admitted to hospitalist. For worsening pain or persistent vomiting patient will need NG tube Consultation #2: Hospitalist happy to accept Vital Signs Vital signs: Vital Signs - 8 hr 03/08/22 19:50 03/08/22 19:43 03/08/22 19:45 Temperature 98.2 F Pulse Rate 65 80 66 Respiratory Rate 24 29 H 23 Blood Pressure 125/63 Pulse Oximetry 97 96 97 Oxygen Delivery Method Room Air 03/08/22 20:00 03/08/22 20:15 03/08/22 20:36 Temperature Pulse Rate 62 71 54 L Respiratory Rate 18 28 H Blood Pressure Pulse Oximetry 97 97 Oxygen Delivery Method 03/08/22 20:45 03/08/22 21:00 Temperature Pulse Rate 58 L 72 Respiratory Rate 27 H 28 H Blood Pressure Pulse Oximetry 98 97 Oxygen Delivery Method MDM - Abdominal Pain Lab Data Result diagrams: 03/09/22 05:21 03/09/22 05:21 Labs: Lab Results 03/08/22 03/08/22 03/08/22 Range/Units 19:40 19:40 19:40 WBC 10.1 (4.5-11.0) X10^3/uL RBC 4.65 (4.5-5.9) X10^6/uL Hgb 13.9 (13.5-17.5) g/dL Hct 41.5 (41-53) % MCV 89.3 (80-100) fL MCH 29.8 (26-34) PG MCHC 33.4 (30-36) % RDW 15.0 H (11.6-14.8) % Plt Count 340 (150-400) X10^3/uL Neut % (Auto) 78.5 H (50-75) % Lymph % (Auto) 11.7 L (25-40) % [place] % (Auto) 8.5 (3-14) % Eos % (Auto) 0.5 L (2-4) % Baso % (Auto) 0.8 (0-2) % Neut # (Auto) 8000 H (7554-9160) /uL Lymph # (Auto) 1200 (3815-7851) /uL [place] # (Auto) 900 (0-900) /uL Eos # (Auto) 100 (0-450) /uL Baso # (Auto) 100 (0-100) /uL PT 11.8 (10.1-12.7) SECONDS INR 1.0 (0.9-1.3) D-Dimer 1139 H (<500) ng/ml Sodium 138 (137-145) mmol/L Potassium 3.5 (3.4-5.1) mmol/L Chloride 101 (98-107) mmol/L Carbon Dioxide 29 (22-32) mmol/L BUN 11 (9-20) mg/dL Creatinine 0.92 (0.66-1.25) mg/dL Estimated GFR > 60 (>60) mL/min BUN/Creatinine Ratio 12.0 (6-22) Glucose 127 H (80-110) mg/dL Calcium 10.4 H (8.4-10.2) mg/dL Total Bilirubin 1.0 (0.2-1.3) mg/dL AST 26 (17-59) IU/L ALT 20 (<50) IU/L Alkaline Phosphatase 92 (38-126) U/L Total Creatine Kinase 49 L (55-170) U/L CK-MB (CK-2) TNP CK-MB (CK-2) Rel Index TNP Troponin I < 0.012 (0.01-0.034) ng/mL NT-Pro-B Natriuret Pep 144 (<450) pg/mL Total Protein 7.2 (6.3-8.2) g/dL Albumin 4.2 (3.5-5.0) g/dL Globulin 3.0 (1.7-4.1) g/dL Albumin/Globulin Ratio 1.4 (1.0-2.8) Lipase 72 (23-300) U/L Procalcitonin 0.04 (<0.5) ng/mL Imaging Data CT scan - abdomen/pelvis: Radiologist's Impression: Close Chest/Abdomen/Pelvis CTA (Signed) Kevin Sesay - 03/08/22 Abdomen/Pelvis CT (Signed) Trae Márquez - 01/13/22 Chest/Abdomen X-ray (Signed) Catalina Syed - 01/12/22 Chest X-Ray (Signed) Tip Nieto - 05/18/21 Chest X-Ray (Signed) Mahesh Shin - 05/17/21 Abdomen X-Ray (Signed) Trae Márquez - 05/13/21 Telemetry Strips 05/13/21 Telemetry Strips 05/13/21 Abdomen/Pelvis CT (Signed) Nasreen Del Rosario - 05/13/21 Abdomen X-Ray (Signed) Nasreen Del Rosario - 05/13/21 EKG Rpt. 02/27/[address] (Signed) Gerald Hadley - 02/27/21 Chest X-Ray (Signed) Satish Lau - 02/27/21 Needle Aspiration Ultrasound (Signed) Paulino Bernardo - 10/10/17 Needle Aspiration Ultrasound (Signed) Paulino Bernardo - 10/10/17 Thyroid Ultrasound (Signed) Jonas Fajardo - 09/26/17 Launch?[address] [address] [address] Scan Report Signed Patient: Rubén Denis MR#: [id number] : 1940 Acct:[id number] Age/Sex: 81 / M Date of Service: 03/08/22 Loc: ED Accession Number: [id number] ?? Procedure: CT angio chest abdomen pelvis Ordering Provider: Juan Merida D.O. PROCEDURE:? CT ANGIO CHEST ABDOMEN PELVIS ? INDICATIONS:? chest and abdominal pain, radiates to back ? TECHNIQUE:? Precontrast 5 mm thick sections acquired from the lung apices to the iliac crests.? After the administration of intravenous contrast, 2.5 mm thick sections again acquired from the lung apices to the iliac crests.? Maximum intensity projection (MIP) oblique sagittal and coronal reformats were then acquired.? For radiation dose reduction, the following was used:? automated exposure control.? ? COMPARISON:? None. ? FINDINGS:? Image quality:? Excellent.? ? AORTA:? Ascending thoracic aorta measures up to 4 cm in largest AP diameter.? Descending thoracic aorta is normal in size.? Abdominal aorta is normal in size.? Normal contrast opacification of thoracic and abdominal aorta is seen without aortic dissection.? Tfsy-dl-oeshaapj atherosclerotic calcifications are noted in abdominal aorta. ? CHEST:? Lungs and pleura:? No acute airspace opacities.? Mild dependent atelectasis at posterior and lateral periphery of bilateral lower lung kelley are seen.? No pleural effusions or pneumothorax.? Central and peripheral airways are patent and normal in caliber.? ? Mediastinum:? Heart size is mildly enlarged.? No pericardial effusion.? No mediastinal or hilar adenopathy by size criteria.? Central pulmonary arteries are normal in size.? Esophagus is normal in caliber.? There is a small hiatal hernia. ? Bones and chest wall:? No axillary adenopathy by size criteria.? Mildly enlarged left thyroid lobe is seen with hypodense nodule seen in mid to lower pole left thyroid lobe measures 9 x 7 mm in size series 5, image 18.? No suspicious bony lesions.? No vertebral body compression fractures.? ? ? ABDOMEN:? Vasculature:? Celiac trunk and mesenteric arteries are patent.? Renal arteries are also patent.? ? Solid organs:? Liver is normal in size and enhancement.? Gallbladder is within normal limits.? Biliary system is non dilated.? Pancreas enhances normally.? Spleen is normal in size and enhancement.? No adrenal nodules.? Both kidneys are normal in size and enhancement, without hydronephrosis.? ? Peritoneum and bowel:? Small amount of ascites fluid is seen in abdomen and pelvis.? No gross free air.? Marked fluid fluid and air distended stomach and small bowel loops are noted throughout abdomen with decompressed colon loops.? Exact zone of tr ansition cannot be definitively pinpointed, however likely involving terminal ileum in right lower quadrant abdomen.? Postsurgical changes are noted involving sigmoid colon in left lower quadrant unchanged from prior study. ? Nodes and vessels:? No retroperitoneal or mesenteric adenopathy by size cr iteria.? Inferior vena cava is normal in morphology.? ? Miscellaneous:? Previously noted small ventral hernia is again seen without any signs of incarcerated bowel loops on the current study. ? ? PELVIS:? Genitourinary:? Bladder wall thickness is normal.? ? Miscellaneous:? No inguinal hernias or adenopathy.? No ventral hernias.? ? Bones:? No suspicious bony lesions.? No vertebral body compression fractures.? ? ? IMPRESSION:? 1. Finding is consistent with high-grade distal small-bowel obstruction.? Exact transition zone cannot be definitively identified, likely involving terminal ileum in right lower quadrant abdomen. 2. Small amount of abdominal free fluid.? No gross free air. 3. Mild ascending thoracic aortic aneurysm measures up to 4 cm in largest AP diameter.? No thoracic or abdominal aortic dissection.? No abdominal aortic aneurysm.? Mwsz-yd-oatnxcff atherosclerotic disease. 4. No evidence of pulmonary emboli. 5. Bibasilar atelectasis.? Bilateral lung kelley are otherwise clear.? Dictated by: Kevin Sesay M.D. on 03/08/2022 at 21:13 ? ? Approved by: Kevin Sesay M.D. on 03/08/2022 at 21:22 ? Discharge Plan Departure Patient Disposition: Admitted As Inpatient Clinical Impression: SBO (small bowel obstruction) Admit Date/Time: 03/08/22 21:50 Admit Provider: Marlen Shane
[2022-03-08 19:54] LABS: Add Manual Diff / Slide Review NO; Basophils Absolute Auto 100 /uL (0-100); Basophils Percent Auto 0.8 % (0-2); Eosinophils Absolute Auto 100 /uL (0-450); Eosinophils Percent Auto 0.5 % (2-4); Hematocrit 41.5 % (41-53); Hemoglobin 13.9 g/dL (13.5-17.5); Lymphocytes Absolute Auto 1200 /uL (1100-4500); Lymphocytes Percent Auto 11.7 % (25-40); Mean Corpuscular HGB Conc 33.4 % (30-36); Mean Corpuscular Hemoglobin 29.8 PG (26-34); Mean Corpuscular Volume 89.3 fL (80-100); Monocytes Absolute Auto 900 /uL (0-900); Monocytes Percent Auto 8.5 % (3-14); Neutrophils Absolute Auto 8000 /uL (1500-7000); Neutrophils Percent Auto 78.5 % (50-75); Platelet Count 340 X10^3/uL (150-400); Prothrombin Time 11.8 SECONDS (10.1-12.7); Red Blood Cell Count 4.65 X10^6/uL (4.5-5.9); White Blood Cell Count 10.1 X10^3/uL (4.5-11.0)
[2022-03-08 19:55] LABS: D Dimer 1139 ng/ml (<500)
[2022-03-08 20:01] LABS: Alanine Aminotransferase 20 IU/L (<50); Albumin 4.2 g/dL (3.5-5.0); Albumin Globulin Ratio 1.4 (1.0-2.8); Alkaline Phosphatase 92 U/L (38-126); Aspartate Aminotransferase 26 IU/L (17-59); Blood Urea Nitrogen 11 mg/dL (9-20); Calcium 10.4 mg/dL (8.4-10.2); Carbon Dioxide 29 mmol/L (22-32); Chloride 101 mmol/L (98-107); Creatine Kinase 49 U/L (55-170); Estimated Glomerular Filt Rate > 60 mL/min (>60); Glucose 127 mg/dL (80-110); HEMOLYSIS < 15 (0-50); Lipase 72 U/L (23-300); Potassium 3.5 mmol/L (3.4-5.1); Sodium 138 mmol/L (137-145); Total Protein 7.2 g/dL (6.3-8.2)
[2022-03-08 20:12] LABS: NT-proBNP (BNP-Adult 18+) 144 pg/mL (<450); Troponin I < 0.012 ng/mL (0.01-0.034)
[2022-03-08] MEDS: SODIUM CHLORIDE 0.9% 1,000 ML 150 ML IV (20:12)
--- NOTE | 2022-03-08 20:15 | DI.CT.S_ITS ---
PROCEDURE: CT ANGIO CHEST ABDOMEN PELVIS INDICATIONS: chest and abdominal pain, radiates to back TECHNIQUE: Precontrast 5 mm thick sections acquired from the lung apices to the iliac crests. After the administration of intravenous contrast, 2.5 mm thick sections again acquired from the lung apices to the iliac crests. Maximum intensity projection (MIP) oblique sagittal and coronal reformats were then acquired. For radiation dose reduction, the following was used: automated exposure control. COMPARISON: None. FINDINGS: Image quality: Excellent. AORTA: Ascending thoracic aorta measures up to 4 cm in largest AP diameter. Descending thoracic aorta is normal in size. Abdominal aorta is normal in size. Normal contrast opacification of thoracic and abdominal aorta is seen without aortic dissection. Mzri-ys-qqjrtqkw atherosclerotic calcifications are noted in abdominal aorta. CHEST: Lungs and pleura: No acute airspace opacities. Mild dependent atelectasis at posterior and lateral periphery of bilateral lower lung kelley are seen. No pleural effusions or pneumothorax. Central and peripheral airways are patent and normal in caliber. Mediastinum: Heart size is mildly enlarged. No pericardial effusion. No mediastinal or hilar adenopathy by size criteria. Central pulmonary arteries are normal in size. Esophagus is normal in caliber. There is a small hiatal hernia. Bones and chest wall: No axillary adenopathy by size criteria. Mildly enlarged left thyroid lobe is seen with hypodense nodule seen in mid to lower pole left thyroid lobe measures 9 x 7 mm in size series 5, image 18. No suspicious bony lesions. No vertebral body compression fractures. ABDOMEN: Vasculature: Celiac trunk and mesenteric arteries are patent. Renal arteries are also patent. Solid organs: Liver is normal in size and enhancement. Gallbladder is within normal limits. Biliary system is non dilated. Pancreas enhances normally. Spleen is normal in size and enhancement. No adrenal nodules. Both kidneys are normal in size and enhancement, without hydronephrosis. Peritoneum and bowel: Small amount of ascites fluid is seen in abdomen and pelvis. No gross free air. Marked fluid fluid and air distended stomach and small bowel loops are noted throughout abdomen with decompressed colon loops. Exact zone of transition cannot be definitively pinpointed, however likely involving terminal ileum in right lower quadrant abdomen. Postsurgical changes are noted involving sigmoid colon in left lower quadrant unchanged from prior study. Nodes and vessels: No retroperitoneal or mesenteric adenopathy by size criteria. Inferior vena cava is normal in morphology. Miscellaneous: Previously noted small ventral hernia is again seen without any signs of incarcerated bowel loops on the current study. PELVIS: Genitourinary: Bladder wall thickness is normal. Miscellaneous: No inguinal hernias or adenopathy. No ventral hernias. Bones: No suspicious bony lesions. No vertebral body compression fractures. IMPRESSION: 1. Finding is consistent with high-grade distal small-bowel obstruction. Exact transition zone cannot be definitively identified, likely involving terminal ileum in right lower quadrant abdomen. 2. Small amount of abdominal free fluid. No gross free air. 3. Mild ascending thoracic aortic aneurysm measures up to 4 cm in largest AP diameter. No thoracic or abdominal aortic dissection. No abdominal aortic aneurysm. Kzlo-on-mcdemdfx atherosclerotic disease. 4. No evidence of pulmonary emboli. 5. Bibasilar atelectasis. Bilateral lung kelley are otherwise clear. Dictated by: Kevin Sesay M.D. on 03/08/2022 at 21:13 Approved by: Kevin Sesay M.D. on 03/08/2022 at 21:22
[2022-03-08 20:16] LABS: Procalcitonin 0.04 ng/mL (<0.5)
[2022-03-08 22:20] LABS: COVID19 -Nasal RAPID Negative (Negative)
[2022-03-08] MEDS: SODIUM CHLORIDE 0.9% 1,000 ML 60 ML IV (23:51)
[2022-03-09] VITALS (9 sets, daily range): BP systolic 111–143; BP diastolic 49–66; PULSE 53–67; RESP 16–18; TEMP 36.1–36.4; O2SAT 95–99
--- NOTE | 2022-03-09 | DI.RAD.S_ITS ---
PROCEDURE: XR GASTROGRAFIN CHALLENGE COMPARISON: None. INDICATIONS: SBO FINDINGS: Multiple dilated loops of small bowel compatible with small-bowel obstruction. Contrast material is identified in the dilated loops of small bowel extending to the mid pelvis in expected region of the proximal ileum. No contrast material identified in distal loops of small bowel or the colon. IMPRESSION: Small-bowel obstruction. Dictated by: Kate Forrester MD, PhD on 03/09/2022 at 14:49 Approved by: Kate Forrester MD, PhD on 03/09/2022 at 14:51
--- NOTE | 2022-03-09 01:56 | P.HP_ITS ---
History of Present Illness History of Present Illness Date Patient Seen: 03/08/22 Time Patient Seen: 22:20 Chief complaint: Chest Pain Narrative: Rubén Denis is 81-year-old male nonsmoker with history of prior bowel obstruction resulting in Sigmoid colectomy 04/2021 and subsequent ventral hernia requiring repair in the aftermath presented for gradually worsening abdominal pain and distention over the past week.? He states he is had poor appetite and vomits with eating.? Abdominal pain is described more as pressure 5/10 greatest in the epigastric region but has generalized diffuse abdominal distention, pain worsens with eating, nothing seems to improve the pain, prior in ED was radiating to his back but has since resolved. In ED he reported still having bowel movements without change in passing gas without difficulty.? He denies chest pain, shortness breath, fever, body aches, chills, cough, congestion, sore throat, dysuria, frequency, urgency, dizziness, weakness, lightheaded, recent illness, injury, or trauma. Hospitalization 01/13/2022 D/C summary per Dr. Brumfield general surgery:Patient was here back in April 2021 and underwent sigmoid colectomy for volvulus.? Had an incisional hernia done [address] Luo in [facility].? Was seen last week for aspiration of wound seroma and placed on po antibiotics.? Here today for abdominal pain and constipation.? Radiology reading was concerning for incarcerated, recurrent ventral hernia and associated SBO.? That is not the case, there is colonic obstruction due to stool and a recurrent wound seroma. No fever, normal WBC with hydration. And patient began to move his bowels without any intervention on our part except hydration. Upon admit patient's vitals temp 98.2?, BP 125/63, HR 72, slightly tachypneic RR 28, O2 saturation 97% on room air. Patient has no elevated WBC but does have a left shift neutrophils 8000, noted glucose 127, dimer 1139, T CK 49, troponin WNL, BNP 144, lipase & procalcitonin WNL. Based on initial radiation of pain in the ED CT of chest abdomen pelvis dissection protocol was completed:high-grade distal small-bowel obstruction, likely involving terminal ileum in right lower quadrant abdomen, there is a small amount of abdominal free fluid.? No gross free air, noted mild ascending thoracic aortic aneurysm measures up to 4 cm in largest AP diameter, without thoracic or abdominal aortic dissection, and no abdominal aortic aneurysm.?Tzuc-af-oqxmywof atherosclerotic disease, No evidence of pulmonary emboli, positive bibasilar atelectasis. Patient admitted for small-bowel obstruction.? Patient History Medical History Acute lymphangitis of right upper extremity Allergic rhinitis due to pollen B12 deficiency BPH without obstruction/lower urinary tract symptoms Mild intermittent asthma Polyneuropathy Ventral hernia Surgical History (Updated 03/09/22 @ 02:35 by KAT Bronson-BC) History of colectomy History of transurethral resection of prostate Family & Social History Family History Mother Hypertension Father Parkinsons Social History: household members spouse Safety & Behavioral: Feels Safe in Current Yes Environment Been Physically Hurt or No Threatened By a Person Tobacco & Substance use: Tobacco type cigars Smoking Status Never smoker alcohol intake current alcohol intake frequency 0-2 drinks per day Substance Use Type does not use Meds Home Medications and Allergies Home Medications Medication Instructions Recorded Confirmed Type cyanocobalamin (vitamin B-12) 500 500 mcg PO QAM ##0 04/13/16 01/13/22 History mcg tablet (Vitamin B-12) fluticasone propionate 50 1 spray intranasal QAM ##0 04/13/16 01/13/22 History mcg/actuation nasal spray,suspension vitamins A,C,F-cgzg-zukuew 14,320 1 cap PO BID 05/19/18 01/13/22 History unit-226 mg-200 unit capsule (PreserVision AREDS) twfuphu-klk-kvo [id number] 250 1 tab PO BID 05/13/21 01/13/22 History mg-40 mg-5 mg-125 unit tablet albuterol sulfate 90 mcg/actuation 2 puff inhalation Q6H PRN 05/27/21 01/13/22 History aerosol inhaler Shortness Of Breath budesonide 180 mcg/actuation 1 inh inhalation BID #3 ea 02/09/22 Rx breath activated powder inhaler (Pulmicort Flexhaler) Allergies Allergy/AdvReac Type Severity Reaction Status Date / Time adhesive tape AdvReac Rash Verified 06/17/21 14:27 Review of Systems Review of Systems Narrative: All 12 point systems reviewed with the patient and are negative except otherwise documented. Exam Vital Signs (past 8 hours): - 03/08/22 19:50 03/08/22 19:43 03/08/22 19:45 Temperature 98.2 F Pulse Rate 65 80 66 Respiratory Rate 24 29 H 23 Blood Pressure 125/63 Pulse Oximetry 97 96 97 Oxygen Delivery Method Room Air Oxygen Flow Rate 03/08/22 20:00 03/08/22 20:15 03/08/22 20:36 Temperature Pulse Rate 62 71 54 L Respiratory Rate 18 28 H Blood Pressure Pulse Oximetry 97 97 Oxygen Delivery Method Oxygen Flow Rate 03/08/22 20:45 03/08/22 21:00 03/08/22 21:15 Temperature Pulse Rate 58 L 72 50 L Respiratory Rate 27 H 28 H 21 Blood Pressure Pulse Oximetry 98 97 96 Oxygen Delivery Method Oxygen Flow Rate 03/08/22 21:22 03/08/22 21:22 03/08/22 21:30 Temperature Pulse Rate 56 L Respiratory Rate 21 Blood Pressure 114/57 L 126/59 L Pulse Oximetry 97 Oxygen Delivery Method Oxygen Flow Rate 03/08/22 21:30 03/08/22 21:45 03/08/22 21:45 Temperature Pulse Rate 51 L 59 L Respiratory Rate 17 24 Blood Pressure 126/59 L Pulse Oximetry 96 97 Oxygen Delivery Method Oxygen Flow Rate 03/08/22 22:00 03/08/22 22:00 03/08/22 22:15 Temperature Pulse Rate 59 L Respiratory Rate 25 H Blood Pressure 125/58 L 98/51 L Pulse Oximetry 97 Oxygen Delivery Method Oxygen Flow Rate 03/08/22 22:15 03/08/22 22:30 03/08/22 22:30 Temperature Pulse Rate 62 56 L Respiratory Rate 26 H Blood Pressure 134/61 Pulse Oximetry 96 97 Oxygen Delivery Method Oxygen Flow Rate 03/08/22 22:45 03/08/22 22:45 03/08/22 23:00 Temperature Pulse Rate 64 Respiratory Rate 27 H Blood Pressure 128/60 134/59 L Pulse Oximetry 96 Oxygen Delivery Method Oxygen Flow Rate 03/08/22 23:00 03/08/22 22:05 03/08/22 23:05 Temperature 97.8 F Pulse Rate 52 L 58 L Respiratory Rate 27 H 16 Blood Pressure 129/55 L Pulse Oximetry 97 99 99 Oxygen Delivery Method Room Air Oxygen Flow Rate 0 Oxygen Delivery Method Room Air Oxygen Flow Rate 0 Narrative Exam Narrative: General: Patient is a well-developed, well-nourished elderly male who appears younger than stated age in no distress at this time. HEENT: Normocephalic, atraumatic, extraocular muscles intact, oral pharynx is clear and mucous membranes are moist. Neck is supple and symmetric, trachea is midline, no adenopathy, no thyroid enlargement, nontender, no masses palpated. Negative for JVD Chest: Normal AP diameter and contour without kyphoscoliosis, no nasal flaring, retractions, or tachypneic labored Lungs: Auscultation of all lung kelley are clear without adventitious sounds, wheezes, rhonchi, or rales. Cardio: S1 & S2 with regular rate and rhythm without murmur, rubs, or gallops, no carotid bruit, no cardiac pulsations present. Abdomen: Diffuse abdominal distention firm with noted ventral hernia palpable, Bowel sounds are hypoactive present in all 4 quadrants, no CVA tenderness. Musculoskeletal: Muscle strength and tone are equal within normal limits, no deformity, crepitus, effusions, cyanosis, clubbing or edema present. Full range of motion intact radial and pedal pulses are normal. Skin: Warm dry and intact without rashes, ulcerations or petechiae. Neuro: Alert and orientated x3, strength is +5/5 in all extremities, sensation to touch intact, no gross deficits noted of cranial nerves. Psych: Patient has a well-kept appearance, appropriate affect, mental status attitude thought context and judgment are appropriate for age. Objective Labs Result Diagrams: 03/08/22 19:40 03/08/22 19:40 Labs: Laboratory Results - last 24 hr 03/08/22 03/08/22 03/08/22 19:40 19:40 19:40 WBC 10.1 RBC 4.65 Hgb 13.9 Hct 41.5 MCV 89.3 MCH 29.8 MCHC 33.4 RDW 15.0 H Plt Count 340 Neut % (Auto) 78.5 H Lymph % (Auto) 11.7 L [place] % (Auto) 8.5 Eos % (Auto) 0.5 L Baso % (Auto) 0.8 Neut # (Auto) 8000 H Lymph # (Auto) 1200 [place] # (Auto) 900 Eos # (Auto) 100 Baso # (Auto) 100 PT 11.8 INR 1.0 D-Dimer 1139 H Sodium 138 Potassium 3.5 Chloride 101 Carbon Dioxide 29 BUN 11 Creatinine 0.92 Estimated GFR > 60 BUN/Creatinine Ratio 12.0 Glucose 127 H Calcium 10.4 H Total Bilirubin 1.0 AST 26 ALT 20 Alkaline Phosphatase 92 Total Creatine Kinase 49 L CK-MB (CK-2) TNP CK-MB (CK-2) Rel Index TNP Troponin I < 0.012 NT-Pro-B Natriuret Pep 144 Total Protein 7.2 Albumin 4.2 Globulin 3.0 Albumin/Globulin Ratio 1.4 Lipase 72 Procalcitonin 0.04 SARS-CoV-2 (PCR) 03/08/22 21:53 WBC RBC Hgb Hct MCV MCH MCHC RDW Plt Count Neut % (Auto) Lymph % (Auto) [place] % (Auto) Eos % (Auto) Baso % (Auto) Neut # (Auto) Lymph # (Auto) [place] # (Auto) Eos # (Auto) Baso # (Auto) PT INR D-Dimer Sodium Potassium Chloride Carbon Dioxide BUN Creatinine Estimated GFR BUN/Creatinine Ratio Glucose Calcium Total Bilirubin AST ALT Alkaline Phosphatase Total Creatine Kinase CK-MB (CK-2) CK-MB (CK-2) Rel Index Troponin I NT-Pro-B Natriuret Pep Total Protein Albumin Globulin Albumin/Globulin Ratio Lipase Procalcitonin SARS-CoV-2 (PCR) Negative Assessment & Plan Assessment & Plan narrative: Rubén Denis is 81-year-old male nonsmoker with history of prior bowel obstruction resulting in Sigmoid colectomy 04/2021 and subsequent ventral hernia requiring repair in the aftermath presented for gradually worsening abdominal pain and distention over the past week. Patient had incisional hernia repair in [place] by Dr. Ozuna on 01/11, and had a colonic obstruction secondary to wound seroma 01/13/2022, admit for small-bowel obstruction on 02/13/2022. Patient admitted for small-bowel obstruction.? 1. 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 Brumfield to consult & manage -patient NPO -if vomiting develops will place NG tube -glucose checks q.6 hours while NPO -gentle rehydration NS 60 cc/HR -bladder scans as needed to monitor for urinary retention -WBC WNL, neutrophils 8000, lipase & procalcitonin WNL.- No signs of infection no antibiotics - dimer 1139, T CK 49, troponin WNL, BNP 144 -CT of chest abdomen pelvis dissection protocol was completed:high-grade distal small-bowel obstruction, likely involving terminal ileum in right lower quadrant abdomen, there is a small amount of abdominal free fluid.? No gross free air, noted mild ascending thoracic aortic aneurysm measures up to 4 cm in largest AP diameter, without thoracic or abdominal aortic dissection, and no abdominal aortic aneurysm.?Neak-vs-qoscqums atherosclerotic disease, No evidence of pulmonary emboli, positive bibasilar atelectasis. 2. Caloric malnutrition, as evidence by BMI of 20.7, acute on chronic, present on admission -patient's malnutrition has impaired his ability to heal and complicated his health status on prior admits and has received TPN on prior admissions. Patient's malnutrition puts him at greater risk of morbidity and mortality. -per up-to-date BMI classification by NIH and WHO: > normal weight BMI 18.5- 24.9kg/m2 -dietary consult placed for evaluation nutritional supplementation, caloric intake. Code status:Full Surrogate decision maker: Peggy Denis CHINMAY PCR: Negative DVT/VTE prophylaxis: Holding medication due to possible surgical procedure, SCDs only Disposition: Patient admitted for observation for evaluation and management of small-bowel obstruction, expected length of stay less than 2 midnights. I have utilized all available immediate resources to obtain, update, or review the patient's current medications. I confirmed that the patient's advanced care plan is present, Code status is documented and/or surrogate decision maker is listed in the patient's medical record. Time Spent With Patient Critical Care time: I spent a total of [] minutes of critical care time on this patient's care today; this time is exclusive of procedural time.
[2022-03-09 05:30] LABS: Add Manual Diff / Slide Review NO; Basophils Absolute Auto 100 /uL (0-100); Basophils Percent Auto 0.8 % (0-2); Eosinophils Absolute Auto 0 /uL (0-450); Eosinophils Percent Auto 0.4 % (2-4); Hematocrit 38.8 % (41-53); Lymphocytes Absolute Auto 1000 /uL (1100-4500); Lymphocytes Percent Auto 11.5 % (25-40); Mean Corpuscular HGB Conc 33.6 % (30-36); Mean Corpuscular Hemoglobin 29.9 PG (26-34); Monocytes Absolute Auto 1000 /uL (0-900); Monocytes Percent Auto 11.5 % (3-14); Neutrophils Absolute Auto 6300 /uL (1500-7000); Neutrophils Percent Auto 75.8 % (50-75); Platelet Count 289 X10^3/uL (150-400); Red Blood Cell Count 4.36 X10^6/uL (4.5-5.9); Red Cell Distribution Width 14.8 % (11.6-14.8); White Blood Cell Count 8.3 X10^3/uL (4.5-11.0)
[2022-03-09 05:34] LABS: INR 1.1 (0.9-1.3); Prothrombin Time 12.7 SECONDS (10.1-12.7)
[2022-03-09 05:37] LABS: PTT Partial Thromboplastin Tim 28 SECONDS (26-36)
[2022-03-09 05:41] LABS: Blood Urea Nitrogen 11 mg/dL (9-20); Calcium 10.1 mg/dL (8.4-10.2); Carbon Dioxide 30 mmol/L (22-32); Chloride 104 mmol/L (98-107); Estimated Glomerular Filt Rate > 60 mL/min (>60); Glucose 125 mg/dL (80-110); HEMOLYSIS < 15 (0-50); Potassium 3.6 mmol/L (3.4-5.1); Sodium 140 mmol/L (137-145)
--- NOTE | 2022-03-09 09:42 | P.PN_ITS ---
Subjective Subjective Date Patient Seen: 03/09/22 Time Patient Seen: 09:42 Interval history: Recurrent SBO. Recent ventral hernia repair w mesh in [facility] with Dr. Morales. No BM or gas for 24 hrs. 2 episodes of emesis since admission. mild abdominal discomfort. Had an episode last weekend that resolved spontaneously. Exam Vital Signs (past 8 hours): - 03/09/22 02:05 03/09/22 05:56 03/09/22 03:00 Temperature 97.5 F L Pulse Rate 67 Respiratory Rate 16 Blood Pressure 113/56 L Pulse Oximetry 99 97 97 Oxygen Delivery Method Room Air Room Air Oxygen Flow Rate 0 03/09/22 07:40 Temperature 97.4 F L Pulse Rate 54 L Respiratory Rate 18 Blood Pressure 122/61 Pulse Oximetry 99 Oxygen Delivery Method Oxygen Flow Rate 0 Oxygen Delivery Method Room Air Oxygen Flow Rate 0 Narrative Exam Narrative: Pleasant. Const General: cooperative and healthy appearing Nutritional Appearance: thin Orientation: alert and oriented x3 HENMT Head: normocephalic and atraumatic Ears: hearing grossly normal bilaterally Face and sinus: normal facial exam Eyes General: appearance normal, both eyes and all related structures Sclera: sclerae normal Neck Neck: trachea midline Chest Chest: normal inspection of the chest Resp Effort & Inspection: normal respiratory effort and able to speak in complete sentences Cardio Rate: bradycardic Rhythm: regular rhythm GI Inspection: distended Palpation: soft Skin General: atrophy and dry skin Neuro General: patient alert, patient awake and patient oriented x3 Extrem General: full ROM Psych Appearance: grossly normal Affect: normal affect Judgment: judgment good Objective Labs Result Diagrams: 03/09/22 05:21 03/09/22 05:21 Labs: Laboratory Results - last 24 hr 03/08/22 03/08/22 03/08/22 19:40 19:40 19:40 WBC 10.1 RBC 4.65 Hgb 13.9 Hct 41.5 MCV 89.3 MCH 29.8 MCHC 33.4 RDW 15.0 H Plt Count 340 Neut % (Auto) 78.5 H Lymph % (Auto) 11.7 L [place] % (Auto) 8.5 Eos % (Auto) 0.5 L Baso % (Auto) 0.8 Neut # (Auto) 8000 H Lymph # (Auto) 1200 [place] # (Auto) 900 Eos # (Auto) 100 Baso # (Auto) 100 PT 11.8 INR 1.0 APTT D-Dimer 1139 H Sodium 138 Potassium 3.5 Chloride 101 Carbon Dioxide 29 BUN 11 Creatinine 0.92 Estimated GFR > 60 BUN/Creatinine Ratio 12.0 Glucose 127 H Calcium 10.4 H Total Bilirubin 1.0 AST 26 ALT 20 Alkaline Phosphatase 92 Total Creatine Kinase 49 L CK-MB (CK-2) TNP CK-MB (CK-2) Rel Index TNP Troponin I < 0.012 NT-Pro-B Natriuret Pep 144 Total Protein 7.2 Albumin 4.2 Globulin 3.0 Albumin/Globulin Ratio 1.4 Lipase 72 Procalcitonin 0.04 SARS-CoV-2 (PCR) 03/08/22 03/09/22 03/09/22 21:53 05:21 05:21 WBC 8.3 RBC 4.36 L Hgb 13.0 L Hct 38.8 L MCV 89.0 MCH 29.9 MCHC 33.6 RDW 14.8 Plt Count 289 Neut % (Auto) 75.8 H Lymph % (Auto) 11.5 L [place] % (Auto) 11.5 Eos % (Auto) 0.4 L Baso % (Auto) 0.8 Neut # (Auto) 6300 Lymph # (Auto) 1000 L [place] # (Auto) 1000 H Eos # (Auto) 0 Baso # (Auto) 100 PT 12.7 INR 1.1 APTT 28 D-Dimer Sodium Potassium Chloride Carbon Dioxide BUN Creatinine Estimated GFR BUN/Creatinine Ratio Glucose Calcium Total Bilirubin AST ALT Alkaline Phosphatase Total Creatine Kinase CK-MB (CK-2) CK-MB (CK-2) Rel Index Troponin I NT-Pro-B Natriuret Pep Total Protein Albumin Globulin Albumin/Globulin Ratio Lipase Procalcitonin SARS-CoV-2 (PCR) Negative 03/09/22 05:21 WBC RBC Hgb Hct MCV MCH MCHC RDW Plt Count Neut % (Auto) Lymph % (Auto) [place] % (Auto) Eos % (Auto) Baso % (Auto) Neut # (Auto) Lymph # (Auto) [place] # (Auto) Eos # (Auto) Baso # (Auto) PT INR APTT D-Dimer Sodium 140 Potassium 3.6 Chloride 104 Carbon Dioxide 30 BUN 11 Creatinine 0.92 Estimated GFR > 60 BUN/Creatinine Ratio 12.0 Glucose 125 H Calcium 10.1 Total Bilirubin AST ALT Alkaline Phosphatase Total Creatine Kinase CK-MB (CK-2) CK-MB (CK-2) Rel Index Troponin I NT-Pro-B Natriuret Pep Total Protein Albumin Globulin Albumin/Globulin Ratio Lipase Procalcitonin SARS-CoV-2 (PCR) [facility] Medical History Acute lymphangitis of right upper extremity Allergic rhinitis due to pollen B12 deficiency BPH without obstruction/lower urinary tract symptoms Mild intermittent asthma Polyneuropathy Ventral hernia Surgical History History of colectomy History of transurethral resection of prostate Family History Mother Hypertension Father Parkinsons Social History household members: spouse Smoking Status: Never smoker alcohol intake: current Assessment & Plan Assessment & Plan narrative: SBO that is recurrent, Ventral hernia repair in December. This is his 3 episode, 2 requiring hospitalization Plan: Gastrografin challenge (GGC) in hopes of relieving obstruction. Then referral back to [facility] for possible elective GREGORY. If GGC doesn't work, he will need surgery. COVID-19 COVID-19 status: Negative Time Spent With Patient Time with patient: 30 to 49 minutes with 50% spent counseling/coordinating care Critical Care time: I spent a total of [] minutes of critical care time on this patient's care today; this time is exclusive of procedural time. Quality VTE Deep Vein Thrombosis/Pulmonary Embolism Present on Admission: No
--- NOTE | 2022-03-09 10:25 | DIET.CONS ---
Dietary Consultation Note Admission Date: 03/08/2022 21:50 Assessment: 81y M admitted for chest pain found to have high-grade SBO undergoing gastrografin challenge referred to nutrition for TPN reccs. Pt admitted 1y ago for volvulous with sigmoid colectomy, lost 20# and was on TPN while hospitalized due to post-operative ileus. RD met c pt at bedside, pt with BMI 20.7 (severe for age), NPFE showing moderate muscle and subcutaneous fat losses, pt remains 20# below his UBW from last year. Pt reports breakfast yesterday of 1/2 polish muffin and 1 small cup grapefruit sections which he did not vomit up and poor to moderate intake for the previous week with some emesis. Plan for initiation of TPN tonight if pt does not pass gastrografin challenge today. Pt states he has two GI consults with different doctors the first week of March- one in [place], the other [place]. Ht: 182.88 cm Wt: 69.1 kg (12% below UBW) BMI: 20.6 (severe for age) UBW: 78kg Last BM: 03/08/22 (03/08/22 22:41) MNA: 12 Jose Score: 22 Diet: 03/08/22 22:06 NPO Diet Diet Modifications: NPO Type: Strict Labs: RBC 4.36 X10^6/uL (4.5-5.9) L 03/09/22 05:21 Hgb 13.0 g/dL (13.5-17.5) L 03/09/22 05:21 Hct 38.8 % (41-53) L 03/09/22 05:21 Creatinine 0.92 mg/dL (0.66-1.25) 03/09/22 05:21 NT-Pro-B Natriuret Pep 144 pg/mL (<450) 03/08/22 19:40 Nutrition Diagnosis: Severe Chronic Malnutrition r/t altered GI function (ventral hernia, repeat SBOs) aeb pt remains 12% UBW from colectomy 1y ago, BMI 20.7 (severe for age), NFPE showing moderate muscle and fat wasting system wide, pt admitted with SBO, provider requesting TPN. Interventions: 1. Recc PICC placement and initiation of continuous TPN per surgery reccs. Day 1: 1.5L Clinimix E 5/20 running at 62mL/h without lipids, monitor for refeeding and replete as needed. If pt tolerating day 1 rate, Day 2: 2L Clinimix E 5/20 running at 82mL/h with 250mL IVFE, lipids running three times per week to protect against essential fatty acid deficiency. EER: 2,050kcals (30kcal/kg per PCM), 90g PRO (1.3g/kg per PCM) Monitoring/Evaluations: following daily Electronically Signed by: Cydney Gonzalez 03/09/22 10:25 Clinical Dietitian [address] [address]
--- NOTE | 2022-03-09 11:16 | CM.DANOTE ---
DCP Assessment: Payor confirmed: Medicare & [employer] life Ins. PCP confirmed: Donnell Mascorro MD Pt is a 81 y.o. M who presented to the ER with chest pain. It was determined that the patient has a small bowel obstruction. Pt was admitted to the floor for further management of symptoms. Dr. Brumfield consulted and has started patient on the gastrografin challenge to hopefully relieve obstruction and refer back to [facility] in [place] for elective GREGORY. If the challenge is not successful, surgery will be the next step. DCP met with pt this morning to discuss discharge needs. Pt sitting up in bed. DCP introduced self and role. Pt states he lives in a two story home but mainly lives on the first level in [place]. Pt states he lives with his , Peggy. Pt states that he is fairly independent at baseline but does own and carry walking sticks with him. Both him and his still drive POV. 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 Pt denies any caregivers. No discharge needs at this time. White board updated and instructed to call. Pt thankful for discussion. P: Pt to continue on gastro challenge. If successful, will discharge home and follow up with Dr. Morales. If unsuccessful, pt will need surgery. Once medically stable, pt to discharge home via spouse POV. Madelin Arvizu RN/ADAN Discharge Planning/Care Management CM Discharge Assessment Start: 03/09/22 11:13 Freq: Status: Active Protocol: Document 03/09/22 11:13 SEAN (Rec: 03/09/22 11:14 SEAN [id number]) Discharge Planning Assessment Assigned Networking Technology Instructor Madelin Arvizu RN/ADAN Advance Directives? Yes Advance Directives on File No History Provided By Patient,Medical Record Prior Living Arrangements House Household Members spouse Type of transporation used prior to Drives own vehicle admit Independent with ADL's Yes Is patient alert and oriented? Yes DME Already Rented / Owned Other Comment Walking sticks Discharge Plan Home Transportation Arrangement Spouse Referrals Initiated None needed Whiteboard Updated in Patient Room with Yes name and ext. # of Networking Technology Instructor Comment Instructed to call Review Status In Process Please Provide Date Initial DC 03/09/22 Assessment Was Performed Next Review Type Continued Stay Review
--- NOTE | 2022-03-09 14:13 | PM.PN.1 ---
Subjective Subjective Interval history: Rubén Denis is 81-year-old male nonsmoker with history of prior bowel obstruction resulting in Sigmoid colectomy 04/2021 and subsequent ventral hernia requiring repair in the aftermath presented for gradually worsening abdominal pain and distention over the past week. Appreciate general surgery consult by Dr. Brumfield. Remains to be a possibility for surgery if obstruction does not clear. Exam Vital Signs (past 8 hours): - 03/09/22 07:40 03/09/22 07:40 03/09/22 07:40 Temperature 97.4 F L Pulse Rate 54 L Respiratory Rate 18 Blood Pressure 122/61 Pulse Oximetry 99 97 Oxygen Delivery Method Room Air Room Air Oxygen Flow Rate 0 03/09/22 11:35 Temperature 97.0 F L Pulse Rate 54 L Respiratory Rate 18 Blood Pressure 136/66 Pulse Oximetry 98 Oxygen Delivery Method Oxygen Flow Rate 0 Oxygen Delivery Method Room Air Oxygen Flow Rate 0 Narrative Exam Narrative: General:? Patient is a well-developed, well-nourished elderly male in no distress at this time. HEENT:? Normocephalic, atraumatic, extraocular muscles intact, oral pharynx is clear and mucous membranes are moist.? Neck is supple and symmetric, trachea is midline, no adenopathy, no thyroid enlargement, nontender, no masses palpated.? Negative for JVD Chest:? Normal AP diameter and contour without kyphoscoliosis, no nasal flaring, retractions, or tachypneic labored Lungs:? Auscultation of all lung kelley are clear without adventitious sounds, wheezes, rhonchi, or rales. Cardio:? S1 & S2 with regular rate and rhythm without murmur, rubs, or gallops, no carotid bruit, no cardiac pulsations present. Abdomen:? Diffuse abdominal distention firm with noted ventral hernia palpable, Bowel sounds are present in all 4 quadrants, no CVA tenderness. Patient not producing flatus. Musculoskeletal:? Muscle strength and tone are equal within normal limits, no deformity, crepitus, effusions, cyanosis, clubbing or edema present.? Full range of motion intact radial and pedal pulses are normal. Skin:? Warm dry and intact without rashes, ulcerations or petechiae.? Neuro:? Alert and orientated x3, strength is +5/5 in all extremities, sensation to touch intact, no gross deficits noted of cranial nerves. Psych:? Patient has a well-kept appearance, normal mood and affect. Objective Labs Result Diagrams: 03/09/22 05:21 03/09/22 05:21 Labs: Laboratory Results - last 24 hr 03/08/22 03/08/22 03/08/22 19:40 19:40 19:40 WBC 10.1 RBC 4.65 Hgb 13.9 Hct 41.5 MCV 89.3 MCH 29.8 MCHC 33.4 RDW 15.0 H Plt Count 340 Neut % (Auto) 78.5 H Lymph % (Auto) 11.[address] [place] % (Auto) 8.5 Eos % (Auto) 0.5 L Baso % (Auto) 0.8 Neut # (Auto) 8000 H Lymph # (Auto) 1200 [place] # (Auto) 900 Eos # (Auto) 100 Baso # (Auto) 100 PT 11.8 INR 1.0 APTT D-Dimer 1139 H Sodium 138 Potassium 3.5 Chloride 101 Carbon Dioxide 29 BUN 11 Creatinine 0.92 Estimated GFR > 60 BUN/Creatinine Ratio 12.0 Glucose 127 H Calcium 10.4 H Total Bilirubin 1.0 AST 26 ALT 20 Alkaline Phosphatase 92 Total Creatine Kinase 49 L CK-MB (CK-2) TNP CK-MB (CK-2) Rel Index TNP Troponin I < 0.012 NT-Pro-B Natriuret Pep 144 Total Protein 7.2 Albumin 4.2 Globulin 3.0 Albumin/Globulin Ratio 1.4 Lipase 72 Procalcitonin 0.04 SARS-CoV-2 (PCR) 03/08/22 03/09/22 03/09/22 21:53 05:21 05:21 WBC 8.3 RBC 4.36 L Hgb 13.0 L Hct 38.8 L MCV 89.0 MCH 29.9 MCHC 33.6 RDW 14.8 Plt Count 289 Neut % (Auto) 75.8 H Lymph % (Auto) 11.[address] [place] % (Auto) 11.5 Eos % (Auto) 0.4 L Baso % (Auto) 0.8 Neut # (Auto) 6300 Lymph # (Auto) [address] [place] # (Auto) 1000 H Eos # (Auto) 0 Baso # (Auto) 100 PT 12.7 INR 1.1 APTT 28 D-Dimer Sodium Potassium Chloride Carbon Dioxide BUN Creatinine Estimated GFR BUN/Creatinine Ratio Glucose Calcium Total Bilirubin AST ALT Alkaline Phosphatase Total Creatine Kinase CK-MB (CK-2) CK-MB (CK-2) Rel Index Troponin I NT-Pro-B Natriuret Pep Total Protein Albumin Globulin Albumin/Globulin Ratio Lipase Procalcitonin SARS-CoV-2 (PCR) Negative 03/09/22 05:21 WBC RBC Hgb Hct MCV MCH MCHC RDW Plt Count Neut % (Auto) Lymph % (Auto) [place] % (Auto) Eos % (Auto) Baso % (Auto) Neut # (Auto) Lymph # (Auto) [place] # (Auto) Eos # (Auto) Baso # (Auto) PT INR APTT D-Dimer Sodium 140 Potassium 3.6 Chloride 104 Carbon Dioxide 30 BUN 11 Creatinine 0.92 Estimated GFR > 60 BUN/Creatinine Ratio 12.0 Glucose 125 H Calcium 10.1 Total Bilirubin AST ALT Alkaline Phosphatase Total Creatine Kinase CK-MB (CK-2) CK-MB (CK-2) Rel Index Troponin I NT-Pro-B Natriuret Pep Total Protein Albumin Globulin Albumin/Globulin Ratio Lipase Procalcitonin SARS-CoV-2 (PCR) [facility] Medical History Acute lymphangitis of right upper extremity Allergic rhinitis due to pollen B12 deficiency BPH without obstruction/lower urinary tract symptoms Mild intermittent asthma Polyneuropathy Ventral hernia Surgical History History of colectomy History of transurethral resection of prostate Family History Mother Hypertension Father Parkinsons Social History household members: spouse Smoking Status: Never smoker alcohol intake: current Assessment & Plan Assessment & Plan narrative: 1. 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 Brumfield vein to assess for possible surgery -if vomiting develops will place NG tube -glucose checks q.6 hours while NPO -gentle rehydration NS 60 cc/HR -bladder scans as needed to monitor for urinary retention -WBC WNL, neutrophils decreasing to 6300,? lipase & procalcitonin WNL.- No signs of infection and currently no antibiotics - dimer 1139, T CK 49, troponin WNL, BNP 144 -CT of chest abdomen pelvis dissection protocol was completed:high-grade distal small-bowel obstruction,? likely involving terminal ileum in right lower quadrant abdomen, there is a small amount of abdominal free fluid.? No gross free air, noted mild ascending thoracic aortic aneurysm measures up to 4 cm in largest AP diameter, without thoracic or abdominal aortic dissection, and no abdominal aortic aneurysm.?[id number] atherosclerotic disease, No evidence of pulmonary emboli, positive bibasilar atelectasis. 2. Caloric malnutrition, as evidence by BMI of 20.7, acute on chronic, present on admission -patient's malnutrition has impaired his ability to heal and complicated his health status on prior admits and has received TPN on prior admissions.? Patient's malnutrition puts him at greater risk of morbidity and mortality. -per up-to-date BMI classification by NIH and WHO: > normal weight BMI 18.5-24.9kg/m2 -dietary consult placed for evaluation nutritional supplementation, caloric intake. -Dr. Brumfield PICC line being inserted for proactively for possible need for TPN Continue to monitor clinically, follow labs. Code status:Full Surrogate decision maker:? Peggy Denis COVID PCR:? Negative DVT/VTE prophylaxis:? Holding medication due to possible surgical procedure, SCDs only Time Spent With Patient Critical Care time: I spent a total of [] minutes of critical care time on this patient's care today; this time is exclusive of procedural time. Quality VTE Deep Vein Thrombosis/Pulmonary Embolism Present on Admission: No
[2022-03-09] MEDS: SODIUM CHLORIDE 0.9% 1,000 ML 60 ML IV (18:02)
[2022-03-09] MEDS: ONDANSETRON 4 MG/2 ML INJ IV (18:06)
[2022-03-09] MEDS: ALBUTEROL 2.5 MG/3 ML NEB (ADULT) INH (20:02)
[2022-03-09] MEDS: BUDESONIDE 0.5 MG/2 ML NEB INH (20:03)
--- NOTE | 2022-03-09 22:00 | DI.RAD.S_ITS ---
PROCEDURE: XR CHEST FOR PICC 1V INDICATIONS: picc line placement verification COMPARISON: [facility], , XR CHEST FOR PICC 1V, 05/18/2021, 14:17. FINDINGS: PICC was placed by the intravenous therapy team from the left side. Fluoroscopic spot film demonstrates the tip of PICC projecting to the area of SVC. IMPRESSION: Tip of PICC projects to the area of lower SVC. Dictated by: Kevin Sesay M.D. on 03/09/2022 at 22:36 Approved by: Kevin Sesay M.D. on 03/09/2022 at 22:37
[2022-03-09] MEDS: LYTES IV (22:54)
[2022-03-09] MEDS: TRACE ELEMENTS IV (22:54)
[2022-03-09] MEDS: CALCIUM IV (22:54)
[2022-03-09] MEDS: MULTIVITAMIN IV (22:54)
[2022-03-09] MEDS: [UNRECOGNIZED DRUG - OTHER] IV (22:54)
[2022-03-09] MEDS: DEXT IV (22:54)
[2022-03-10] VITALS (7 sets, daily range): BP systolic 95–113; BP diastolic 44–59; PULSE 50–60; RESP 16–18; TEMP 35.7–36.6; O2SAT 95–99
--- NOTE | 2022-03-10 03:04 | PC.NURSE ---
Pt is AxOx4, independent and cooperative. VSS, pt c/o abd pain 1-2/10 sometimes and pt verbalized that it is not constant and it only come and go. Pt got PICC line placed around 2330 and started his TPN last night. BG-165 around 2300. No PRN pain med requested. NO n/v, pt passing some gas. No other changes. continue monitor.
[2022-03-10 04:48] LABS: Alanine Aminotransferase 14 IU/L (<50); Albumin 3.1 g/dL (3.5-5.0); Albumin Globulin Ratio 1.2 (1.0-2.8); Alkaline Phosphatase 50 U/L (38-126); Aspartate Aminotransferase 21 IU/L (17-59); BUN Creatinine Ratio 21.9 (6-22); Bilirubin Total 0.7 mg/dL (0.2-1.3); Blood Urea Nitrogen 21 mg/dL (9-20); Calcium 9.4 mg/dL (8.4-10.2); Carbon Dioxide 27 mmol/L (22-32); Chloride 109 mmol/L (98-107); Estimated Glomerular Filt Rate > 60 mL/min (>60); Globulin 2.5 g/dL (1.7-4.1); Glucose 181 mg/dL (80-110); HEMOLYSIS 18 (0-50); Sodium 142 mmol/L (137-145); Total Protein 5.6 g/dL (6.3-8.2)
[2022-03-10 04:59] LABS: Magnesium 2.1 mg/dL (1.6-2.3); Phosphorous 2.7 mg/dL (2.3-3.7); Triglycerides 30 mg/dL (35-150)
[2022-03-10 05:01] LABS: Add Manual Diff / Slide Review NO; Basophils Absolute Auto 0 /uL (0-100); Basophils Percent Auto 0.4 % (0-2); Eosinophils Absolute Auto 0 /uL (0-450); Hematocrit 34.4 % (41-53); Hemoglobin 11.6 g/dL (13.5-17.5); Lymphocytes Absolute Auto 500 /uL (1100-4500); Lymphocytes Percent Auto 7.1 % (25-40); Mean Corpuscular HGB Conc 33.8 % (30-36); Mean Corpuscular Hemoglobin 30.5 PG (26-34); Mean Corpuscular Volume 90.2 fL (80-100); Monocytes Absolute Auto 800 /uL (0-900); Monocytes Percent Auto 10.8 % (3-14); Neutrophils Absolute Auto 6100 /uL (1500-7000); Neutrophils Percent Auto 81.7 % (50-75); Platelet Count 220 X10^3/uL (150-400); Red Blood Cell Count 3.81 X10^6/uL (4.5-5.9); White Blood Cell Count 7.4 X10^3/uL (4.5-11.0)
[2022-03-10 06:49] LABS: Prealbumin 16.9 mg/dL (17.6-36.0)
--- NOTE | 2022-03-10 08:53 | PM.EVENT ---
Event Note Date Patient Seen: 03/10/22 Event Note (Rapid Response, Code, or fall): Patient not seen. But SBO is resolving. Recommend low residue diet at home. +/- keeping PIC line until he can be evaluated by Dr. Morales in [facility] (general surgeon) to evaluate for elective GREGORY. I will see him later today if he is not discharged home.
--- NOTE | 2022-03-10 13:38 | CM.DPNOTE ---
Discharge Planning Note: Met with patient and spouse in room. He is receiving TPN since last night and says he is feeling so much better and has had several bowel movements. He has tolerated a small amount of food today without difficulty. Awaiting surgeon visit to see if he can be discharged this afternoon and follow up outpatient. Plan: Discharge home with spouse who can transfer. Maddie Nava RN/DCP
--- NOTE | 2022-03-10 17:32 | DIET.CONS2 ---
Dietary Inpatient Consultation Note Admission Date: 03/08/2022 21:50 Counselled pt and spouse on low residue diet with addition of high kcal/high pro ONS upon d/c. Diet: 03/10/22 Lunch Soft,Low Fiber (Low residue) Diet Diet Modifications: Electronically Signed by: Cydney Gonzalez 03/10/22 17:32 Clinical Dietitian [address] [address]
--- NOTE | 2022-03-10 18:06 | PM.PN.1 ---
Subjective Subjective Interval history: Rubén Denis is 81-year-old male nonsmoker with history of prior bowel obstruction resulting in Sigmoid colectomy 04/2021 and subsequent ventral hernia requiring repair in the aftermath presented for gradually worsening abdominal pain and distention over the past week. Was initially minute with small-bowel obstruction and a PICC line was placed with the concern that the patient would need TPN and also likely surgery. However, the bowel obstruction has settled. Patient was started on TPN. There was some discussion of whether to continue this. General surgeon Dr. Brumfield felt that he could function fine with taking ensure supplements. Both the patient his and dietitian all that another day of TPN would make the patient more reassured that he to could take adequate oral intake. He did report that he felt so much better once the TPN had started. Therefore the plan now is to continue and for a further bag starting between 6 and 7:00 p.m. this evening. Follow the patient tomorrow and re-evaluate for discharge. Patient will be in charge of making a follow-up appointment with his surgeon in [place] for further reassessment of the complication of small-bowel obstruction that he had following the recent surgery of incisional hernia repair done [address] Luo in [facility]. Exam Vital Signs (past 8 hours): - 03/10/22 12:23 03/10/22 17:00 Temperature 96.9 F L 96.3 F L Pulse Rate 50 L 50 L Respiratory Rate 16 16 Blood Pressure 107/44 L 111/59 L Pulse Oximetry 99 99 Oxygen Flow Rate 0 0 Oxygen Delivery Method Room Air Oxygen Flow Rate 0 Narrative Exam Narrative: General:? Elderly gentleman appearing in no acute medical distress. HEENT:? Normocephalic, atraumatic, extraocular muscles intact, oral pharynx is clear and mucous membranes are moist.? Neck is supple and symmetric, trachea is midline, no adenopathy, no thyroid enlargement, nontender, no masses palpated.? Negative for JVD Chest:? Normal AP diameter and contour without kyphoscoliosis, no nasal flaring, retractions, or tachypneic labored Lungs:? Auscultation of all lung kelley are clear without adventitious sounds, wheezes, rhonchi, or rales. Cardio:? S1 & S2 with regular rate and rhythm without murmur, rubs, or gallops, no carotid bruit, no cardiac pulsations present. Abdomen:? Abdomen is soft. Bowel sounds normal. Musculoskeletal:? Muscle strength and tone are equal within normal limits, no deformity, crepitus, effusions, cyanosis, clubbing or edema present.? Full range of motion intact radial and pedal pulses are normal. Skin:? Warm dry and intact without rashes, ulcerations or petechiae.? Neuro:? Alert and orientated x3, strength is +5/5 in all extremities, sensation to touch intact, no gross deficits noted of cranial nerves. Psych:? Patient has a well-kept appearance, normal mood and affe Objective Labs Result Diagrams: 03/10/22 04:30 03/10/22 04:30 Labs: Laboratory Results - last 24 hr 03/10/22 03/10/22 03/10/22 04:30 04:30 04:30 WBC 7.4 RBC 3.81 L Hgb 11.6 L Hct 34.4 L MCV 90.2 MCH 30.5 MCHC 33.8 RDW 15.0 H Plt Count 220 Neut % (Auto) 81.7 H Lymph % (Auto) 7.1 L [place] % (Auto) 10.8 Eos % (Auto) 0.0 L Baso % (Auto) 0.4 Neut # (Auto) 6100 Lymph # (Auto) 500 L [place] # (Auto) 800 Eos # (Auto) 0 Baso # (Auto) 0 Sodium Cancelled 142 Potassium Cancelled 4.0 Chloride Cancelled 109 H Carbon Dioxide Cancelled 27 BUN Cancelled 21 H Creatinine Cancelled 0.96 Estimated GFR Cancelled > 60 BUN/Creatinine Ratio Cancelled 21.9 Glucose Cancelled 181 H Calcium Cancelled 9.4 Phosphorus 2.7 Magnesium 2.1 Total Bilirubin 0.7 AST 21 ALT 14 Alkaline Phosphatase 50 Total Protein 5.6 L Albumin 3.1 L Globulin 2.5 Albumin/Globulin Ratio 1.2 Prealbumin Triglycerides 30 L 03/10/22 04:30 WBC RBC Hgb Hct MCV MCH MCHC RDW Plt Count Neut % (Auto) Lymph % (Auto) [place] % (Auto) Eos % (Auto) Baso % (Auto) Neut # (Auto) Lymph # (Auto) [place] # (Auto) Eos # (Auto) Baso # (Auto) Sodium Potassium Chloride Carbon Dioxide BUN Creatinine Estimated GFR BUN/Creatinine Ratio Glucose Calcium Phosphorus Magnesium Total Bilirubin AST ALT Alkaline Phosphatase Total Protein Albumin Globulin Albumin/Globulin Ratio Prealbumin 16.9 L Triglycerides [facility] Medical History Acute lymphangitis of right upper extremity Allergic rhinitis due to pollen B12 deficiency BPH without obstruction/lower urinary tract symptoms Mild intermittent asthma Polyneuropathy Ventral hernia Surgical History History of colectomy History of transurethral resection of prostate Family History Mother Hypertension Father Parkinsons Social History household members: spouse Smoking Status: Never smoker alcohol intake: current Assessment & Plan Assessment & Plan narrative: Assessment & Plan narrative: 1. 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 This small bowel obstruction has cleared and the patient has had bowel movements. Has been transition to oral intake. No surgery is planned. Per Dr. Brumfield's assessment the patient could go home and supplement his oral intake of food with Ensure. 2. Caloric malnutrition, as evidence by BMI of 20.7, acute on chronic, present on admission -patient's malnutrition has impaired his ability to heal and complicated his health status on prior admits and has received TPN on prior admissions.? TPN currently on going protein levels today 5.6 which is low and albumin 3.1 which is low albumin is 16.9 which is low as well. Patient's malnutrition puts him at greater risk of morbidity and mortality. -per up-to-date BMI classification by NIH and WHO: > normal weight BMI 18.5-24.9kg/m2 -dietary consult placed for evaluation nutritional supplementation, caloric intake. Dietitian will continue the PT and through another bag starting this evening. This will allow the patient to feel more comfortable eating regular food and knowing that he is tolerating it prior to discharge home. Because no TPN as an outpatient has been set up, and it if it is not set up prior to discharge then the patient will have his PICC line removed prior to discharge. Continue to monitor clinically, follow labs. Code status:Full Surrogate decision maker:? Peggy Denis COVID PCR:? Negative DVT/VTE prophylaxis:? Holding medication due to possible surgical procedure, SCDs only Time Spent With Patient Critical Care time: I spent a total of [] minutes of critical care time on this patient's care today; this time is exclusive of procedural time. Quality VTE Deep Vein Thrombosis/Pulmonary Embolism Present on Admission: No
[2022-03-10] MEDS: MULTIVITAMIN IV (18:36)
[2022-03-10] MEDS: LYTES IV (18:36)
[2022-03-10] MEDS: DEXT IV (18:36)
[2022-03-10] MEDS: [UNRECOGNIZED DRUG - OTHER] IV (18:36)
[2022-03-10] MEDS: TRACE ELEMENTS IV (18:36)
[2022-03-10] MEDS: CALCIUM IV (18:36)
[2022-03-10] MEDS: FAT EMULSIONS 50 GM/250 ML EMULSION IV (18:51)
[2022-03-11] VITALS (8 sets, daily range): BP systolic 99–111; BP diastolic 45–70; PULSE 42–64; RESP 18–20; TEMP 35.8–36.7; O2SAT 96–100
--- NOTE | 2022-03-11 03:27 | PC.NURSE ---
Pt is AxOx4, needs STA and cooperative. VSS, pt denies pain, and n/v. Pt had BM, passing gas and voiding well. Pt also had dinner and tolerated very well. No other changes. Continue monitor.
[2022-03-11 04:56] LABS: Add Manual Diff / Slide Review NO; Basophils Absolute Auto 0 /uL (0-100); Basophils Percent Auto 0.7 % (0-2); Eosinophils Absolute Auto 200 /uL (0-450); Hematocrit 32.1 % (41-53); Hemoglobin 10.8 g/dL (13.5-17.5); Lymphocytes Absolute Auto 1200 /uL (1100-4500); Lymphocytes Percent Auto 20.7 % (25-40); Mean Corpuscular HGB Conc 33.6 % (30-36); Mean Corpuscular Hemoglobin 30.2 PG (26-34); Mean Corpuscular Volume 89.8 fL (80-100); Monocytes Absolute Auto 700 /uL (0-900); Monocytes Percent Auto 12.6 % (3-14); Neutrophils Absolute Auto 3600 /uL (1500-7000); Platelet Count 178 X10^3/uL (150-400); Red Blood Cell Count 3.57 X10^6/uL (4.5-5.9); Red Cell Distribution Width 14.9 % (11.6-14.8); White Blood Cell Count 5.7 X10^3/uL (4.5-11.0)
[2022-03-11 04:59] LABS: Alanine Aminotransferase 16 IU/L (<50); Albumin 2.7 g/dL (3.5-5.0); Albumin Globulin Ratio 1.1 (1.0-2.8); Alkaline Phosphatase 48 U/L (38-126); Aspartate Aminotransferase 21 IU/L (17-59); Bilirubin Total 0.4 mg/dL (0.2-1.3); Blood Urea Nitrogen 24 mg/dL (9-20); Calcium 8.4 mg/dL (8.4-10.2); Carbon Dioxide 26 mmol/L (22-32); Chloride 106 mmol/L (98-107); Estimated Glomerular Filt Rate > 60 mL/min (>60); Globulin 2.4 g/dL (1.7-4.1); Glucose 97 mg/dL (80-110); HEMOLYSIS < 15 (0-50); Potassium 3.4 mmol/L (3.4-5.1); Sodium 136 mmol/L (137-145); Total Protein 5.1 g/dL (6.3-8.2)
[2022-03-11] MEDS: BUDESONIDE 0.5 MG/2 ML NEB INH (08:33)
--- NOTE | 2022-03-11 15:51 | CM.DPNOTE ---
Discharge Planning Note: Patient on Bipap, was transferred to ICU foom 228 last pm. Daughter Ayanna in room. She states sister and mom coming in to visit this afternoon. Followed up on discussion for HH on discharge and provided brochure. Discussed DME needs for when patient returns home. Plan: Discharge when medically cleared with HH RN, PT/OT, PARAPROFESSIONAL AIDE. Notify [facility] when discharged. Maddie Nava RN/DCP
--- NOTE | 2022-03-11 17:09 | PM.DS.1 ---
History of Present Illness History of Present Illness Date Patient Seen: 03/11/22 Chief complaint: Chest Pain Discharge Providers Provider Date of admission: 03/08/22 21:50 Discharge Date: 03/11/22 Primary care physician: Donnell Mascorro MD Consults: 03/08/22 22:18 Consult to Physician Routine Comment: Consulting Provider: Hawa Brumfield Reason for consultation: SBO Has provider been notified: Yes 03/08/22 22:19 Consult to Dietitian, Adult Routine Comment: Reason For Exam: malnutrition BMI 19.7 03/09/22 02:28 Consult to Dietitian, Adult Routine Comment: Currently NPO Reason For Exam: BMI 20.7, required TPN on previous hosp. Discharge provider: Noelle Agudelo MD Summary Hospital Course Discharge Diagnosis: Most responsible diagnosis for length of hospital stay: Small-bowel obstruction Pre admit diagnoses: Small-bowel obstruction Abdominal pain Abdominal distention Vomiting Post admit diagnoses: Clearance of bowel obstruction TPN PICC Line placement Secondary diagnoses: Acute lymphangitis of right upper extremity Allergic rhinitis due to pollen B12 deficiency BPH without obstruction/lower urinary tract symptoms Mild intermittent asthma Polyneuropathy Ventral hernia History of colectomy History of transurethral resection of prostate Hospital Course: Rubén Denis is 81-year-old male nonsmoker with history of prior bowel obstruction resulting in Sigmoid colectomy 04/2021 and subsequent ventral hernia requiring repair in the aftermath presented for gradually worsening abdominal pain and distention over the past week.? Was initially admitted with small-bowel obstruction and a PICC line was placed with the concern that the patient would need TPN and also likely surgery.? However, the bowel obstruction has settled.? It was cleared with of a Gastrografin challenge. Patient was started on TPN prior to clearance of the bowel obstruction.? There was some discussion of whether to continue this.? General surgeon Dr. Brumfield felt that he could function fine with taking ensure supplements and increasing his oral food intake.? Both the patient, his and dietitian all agreed that a second day of TPN would make the patient more reassured that he to could take adequate oral intake.? He did report that he felt so much better once the TPN had started.? Therefore the plan continued with TPN through a bag finishing on March 11, 2022. Patient will be in charge of making a follow-up appointment with his surgeon in [place] for further reassessment of the complication of small-bowel obstruction that he had following the recent surgery of incisional hernia repair done 2 weeks prior to presentation by Dr. Luo in [facility]. Modification of his diet postdischarge has been instructed by the dietitian. Patient encouraged to contact the dietitian of any further questions post discharge regarding his diet. Status at Discharge Cognitive/behavioral status at discharge: at baseline, oriented Functional status at discharge: independent ambulation Overall status at discharge: patient is back to baseline Time Spent with Patient Time spent: Greater than 30 minutes Exam Vital Signs (past 8 hours): - 03/11/22 10:00 03/11/22 13:00 03/11/22 14:00 Temperature 96.6 F L Pulse Rate 62 Respiratory Rate 18 Blood Pressure 99/52 L Pulse Oximetry 97 96 98 Oxygen Delivery Method Room Air Room Air Oxygen Flow Rate 0 0 0 Oxygen Delivery Method Room Air Oxygen Flow Rate 0 Narrative Exam Narrative: General:? Elderly gentleman appearing in no acute medical distress. HEENT:? Normocephalic, atraumatic, extraocular muscles intact, oral pharynx is clear and mucous membranes are moist.? Neck is supple and symmetric, trachea is midline, no adenopathy, no thyroid enlargement, nontender, no masses palpated.? Negative for JVD Chest:? Normal AP diameter and contour without kyphoscoliosis, no nasal flaring, retractions, or tachypneic labored Lungs:? Auscultation of all lung kelley are clear without adventitious sounds, wheezes, rhonchi, or rales. Cardio:? S1 & S2 with regular rate and rhythm without murmur, rubs, or gallops, no carotid bruit, no cardiac pulsations present. Abdomen:? Abdomen is soft.? Bowel sounds normal. Musculoskeletal:? Muscle strength and tone are equal within normal limits, no deformity, crepitus, effusions, cyanosis, clubbing or edema present.? Full range of motion intact radial and pedal pulses are normal. Skin:? Warm dry and intact without rashes, ulcerations or petechiae.? Neuro:? Alert and orientated x3, strength is +5/5 in all extremities, sensation to touch intact, no gross deficits noted of cranial nerves. Psych:? Patient has a well-kept appearance, normal mood and affe Objective Labs Result Diagrams: 03/11/22 04:44 03/11/22 04:44 Labs: Laboratory Results - last 24 hr 03/11/22 03/11/22 04:44 04:44 WBC 5.7 RBC 3.57 L Hgb 10.8 L Hct 32.1 L MCV 89.8 MCH 30.2 MCHC 33.6 RDW 14.9 H Plt Count 178 Neut % (Auto) 63.0 Lymph % (Auto) 20.7 L [place] % (Auto) 12.6 Eos % (Auto) 3.0 Baso % (Auto) 0.7 Neut # (Auto) 3600 Lymph # (Auto) 1200 [place] # (Auto) 700 Eos # (Auto) 200 Baso # (Auto) 0 Sodium 136 L Potassium 3.4 Chloride 106 Carbon Dioxide 26 BUN 24 H Creatinine 0.75 Estimated GFR > 60 BUN/Creatinine Ratio 32.0 H Glucose 97 Calcium 8.4 Total Bilirubin 0.4 AST 21 ALT 16 Alkaline Phosphatase 48 Total Protein 5.1 L Albumin 2.7 L Globulin 2.4 Albumin/Globulin Ratio 1.1 [facility] Medical History Acute lymphangitis of right upper extremity Allergic rhinitis due to pollen B12 deficiency BPH without obstruction/lower urinary tract symptoms Mild intermittent asthma Polyneuropathy Ventral hernia Surgical History History of colectomy History of transurethral resection of prostate Family History Mother Hypertension Father Parkinsons Social History household members: spouse Smoking Status: Never smoker alcohol intake: current Discharge Plan Discharge Plan Patient Disposition: Home Discharge orders & Medications Prescriptions: Continued vitamins A,C,M-fvoj-cvxurm [PreserVision AREDS] 14,[id number] jmvo-[id number]-vutf capsule 1 cap PO BID fluticasone propionate 16 GM spray,suspension 1 spray Intranasal QAM Qty: 0 cyanocobalamin (vitamin B-12) [Vitamin B-12] 500 MCG tablet 1,000 mcg PO QAM Qty: 0 albuterol sulfate 90 mcg/actuation HFA aerosol inhaler 2 puff inhalation Q6H PRN (Reason: Shortness Of Breath) [id number] [id number] uk-ds-zb-unit Tablet 1 tab PO BID Pulmicort Flexhaler 180 mcg/actuation aerosol powdr breath activated 90 mcg INHALATION DAILY Follow up/Referrals: Donnell Mascorro MD [Primary Care Provider] - Diet/Activity/Treatments Diet comment: Diet as per dietitian instructions. Visit Report/Discharge Packet Instructions: Low-Fiber/Low-Residue Diet, DI for Small Bowel Obstruction Discharge Data Primary Care Provider: Donnell Mascorro V Quality VTE Deep Vein Thrombosis/Pulmonary Embolism Present on Admission: No
== END 2022-03-11 18:26 | disposition home health service (06) | DRG 388 ==
LOC: ED 21:47 → AC 21:50
PROVIDERS: Neuromusculoskeletal Medicine, Sports Medicine; Surgery; Admitting Provider Nurse Practitioner Family; Emergency Provider Emergency Medicine; PCP Internal Medicine; Referring Provider Emergency Medicine; Visit Provider Nurse Practitioner Family
DX: K56.609 Unspecified intestinal obstruction, unspecified as to partial versus complete obstruction (principal); E43 Unspecified severe protein-calorie malnutrition; L03.123 Acute lymphangitis of right upper limb; J45.909 Unspecified asthma, uncomplicated; Z90.49 Acquired absence of other specified parts of digestive tract; Z20.822 Contact with and (suspected) exposure to COVID-19; Z68.20 Body mass index [BMI] 20.0-20.9, adult; R03.1 Nonspecific low blood-pressure reading; R94.31 Abnormal electrocardiogram [ECG] [EKG]
CPT/HCPCS: 36415; 71275; 74018; 74174; 80048; 80053; 82550; 82962; 83690; 83735; 83880; 84100; 84134; 84145; 84478; 84484; 85025; 85379; 85610; 85730; 87635; 93005; 93010; 94640; 94760; 99232; 99284; C9803; B4185; B4189; J1815; J2405; J7613; Q9967

== ENCOUNTER → 2023-08-04 08:20 | Outpatient (CLI) | payer MEDICARE, OTHER, SELFPAY ==
[2023-08-01 15:24] VITALS: BMI 20.6
[2023-08-04 08:38] LABS: Hematocrit 39.5 % (41-53); Hemoglobin 13.4 g/dL (13.5-17.5); Mean Corpuscular HGB Conc 33.9 % (30-36); Mean Corpuscular Hemoglobin 30.3 PG (26-34); Mean Corpuscular Volume 89.3 fL (80-100); Platelet Count 276 X10^3/uL (150-400); Red Blood Cell Count 4.42 X10^6/uL (4.5-5.9); Red Cell Distribution Width 14.6 % (11.6-14.8); White Blood Cell Count 4.8 X10^3/uL (4.5-11.0)
[2023-08-04 09:05] LABS: Alanine Aminotransferase 28 IU/L (<50); Albumin 3.5 g/dL (3.5-5.0); Albumin Globulin Ratio 1.3 (1.0-2.8); Alkaline Phosphatase 83 U/L (38-126); Aspartate Aminotransferase 34 IU/L (17-59); BUN Creatinine Ratio 18.7 (6-22); Bilirubin Total 0.8 mg/dL (0.2-1.3); Blood Urea Nitrogen 17 mg/dL (9-20); Calcium 9.5 mg/dL (8.4-10.2); Carbon Dioxide 28 mmol/L (22-32); Chloride 108 mmol/L (98-107); Cholesterol 173 mg/dL (140-199); Estimated Glomerular Filt Rate > 60 mL/min (>60); Globulin 2.8 g/dL (1.7-4.1); Glucose 101 mg/dL (80-110); HDL Cholesterol 75 mg/dL (40-60); HEMOLYSIS < 15 (0-50); LDL Cholesterol Calculated 88 mg/dL (<100); Potassium 4.2 mmol/L (3.4-5.1); Sodium 139 mmol/L (137-145); Total Protein 6.3 g/dL (6.3-8.2); Triglycerides 51 mg/dL (35-150)
[2023-08-04 09:29] LABS: Prostate Specific Antigen 2.58 ng/mL (0.10-4.00)
[2023-08-04 09:48] LABS: Vitamin B12 594 pg/mL (239-931)
== END ==
LOC: LAB 08:21
PROVIDERS: PCP Internal Medicine; Referring Provider Internal Medicine; Visit Provider Internal Medicine
DX: E78.2 Mixed hyperlipidemia (principal); N40.0 Benign prostatic hyperplasia without lower urinary tract symptoms; E53.8 Deficiency of other specified B group vitamins; R26.81 Unsteadiness on feet; G62.9 Polyneuropathy, unspecified; R53.83 Other fatigue
CPT/HCPCS: 36415; 80053; 80061; 82607; 84153; 85027

== ENCOUNTER → 2023-08-29 12:08 | Outpatient (CLI) | payer MEDICARE, OTHER, SELFPAY ==
[2023-08-01 15:24] VITALS: BMI 20.6
--- NOTE | 2023-08-29 12:09 | DI.CT.S_ITS ---
PROCEDURE: CT HEAD/BRAIN WO CON INDICATIONS: Worsening balance, please evaluate for NPH, CVA TECHNIQUE: Noncontrast 4.5 mm thick angled axial sections acquired from the foramen magnum to the vertex, with coronal and sagittal reformats. For radiation dose reduction, the following was used: automated exposure control, adjustment of mA and/or kV according to patient size. COMPARISON: None. FINDINGS: Image quality: Diagnostic. CSF spaces: Basal cisterns are patent. No extra-axial fluid collections. The ventricles are symmetric. There are prominent and are mildly larger than in 2018. Brain: No intracranial bleeds or masses. There is cerebral volume loss for age, with resultant ventricular and sulcal prominence. There are periventricular and deep white matter chronic small vessel ischemic changes. There is intracranial internal carotid artery atherosclerosis. Skull and face: Calvarium and visualized facial bones appear intact, without suspicious lesions. Sinuses: Visualized sinuses and mastoids are clear. IMPRESSION: Prominent lateral ventricles, which are mildly larger than in 2018. Although not striking, the imaging findings would be compatible with a mild degree of normal pressure hydrocephalus. No prior territorial infarct can be seen. Dictated by: Gerhard Dodge M.D. on 08/29/2023 at 11:42 Approved by: Gerhard Dodge M.D. on 08/29/2023 at 11:44
== END ==
LOC: CT 12:09
PROVIDERS: PCP Internal Medicine; Referring Provider Internal Medicine; Visit Provider Internal Medicine
DX: R26.81 Unsteadiness on feet (principal); G91.2 (Idiopathic) normal pressure hydrocephalus
CPT/HCPCS: 70450

== ENCOUNTER 2024-02-14 14:30 | Outpatient (RCR) | payer MEDICARE, OTHER, SELFPAY ==
[2023-08-01 15:24] VITALS: BMI 20.6
--- NOTE | 2023-09-29 12:00 | PT.OIE ---
Current Diagnoses Polyneuropathy, unspecified (09/29/23) Benign paroxysmal vertigo, left ear (09/29/23) Unsteadiness on feet (09/29/23) Other abnormalities of gait and mobility (09/29/23) Past Medical History (Last Updated 08/31/23 @ 15:22 by Donnell Mascorro MD) Allergic rhinitis due to pollen B12 deficiency BPH without obstruction/lower urinary tract symptoms Carotid atherosclerosis Gait instability Mild intermittent asthma NPH (normal pressure hydrocephalus) Polyneuropathy Ventral hernia Past Surgical History (Last Reviewed 08/31/23 @ 13:18 by Donnell Mascorro MD) History of colectomy History of transurethral resection of prostate Visit Care Team Role Provider Type Donnell Mascorro MD Attending Provider Physician Family Provider Primary Care Provider Referring Provider Specialty: Internal Medicine Address: [address] [place] [address], [facility] Email: [email or web address] Physical Therapy Initial Evaluation PT-OP-A Visit Information Start: 09/29/23 17:34 Freq: Status: Active Protocol: Document 09/29/23 11:20 DCW (Rec: 09/29/23 17:53 DCW [id number]) Out-Patient Physical Therapy Visit Information Visit Information Visit Type Initial Evaluation Visit Start Time 11:20 Visit Stop Time 12:05 Visit Number 1 Number of PAYROLL ASSOCIATE Visits 0 Evaluation Information Evaluation Date 09/29/23 PT-OP-B Current Condition Start: 09/29/23 17:34 Freq: Status: Active Protocol: Document 09/29/23 11:20 DCW (Rec: 09/29/23 17:53 DCW [id number]) Current Condition History of Current Condition Current Complaints Worsening balance, gait, and positional dizziness History of Current Condition Pt is an 82 year old male presenting to skilled therapy due to worsening gait and imbalance. Pt has developed a shuffling, festinating gait pattern. Reports he was initial put on medications and run through tests for Parkinson's, but did not have any response. Reports his PCP now believes it is hydrocephalus, pt is waiting to get in with a Neurologist down in [place], currently scheduled some time in November. In the meantime, pt notes his balance and gait has been worsening at an increased rate . Reports if he attempts to walk across his house, his steps get smaller and smaller until he is nearly at his destination and will occasionally get stuck right before it, not able to get closer. Initiation of movement is typically not an issue. Fatigues very quickly, reports he can bend down and lift a heavier object 3x, but then is too fatigued to continue, and needs to rest for an hour. During subjective history, pt also makes offhand comment about dizziness with position changes, reports he gets dizzy for 10-15 seconds when laying in bed or getting up from bed , or when bending down to pick something up. Has been ongoing for a while. Prior Treatments and Tests Head CT: IMPRESSION: Prominent lateral ventricles, which are mildly larger than in 2018. Although not striking , the imaging findings would be compatible with a mild degree of normal pressure hydrocephalus. No prior territorial infarct can be seen. per Yolis Maciel on 08/29/2023 Treatment Goals Patient/Caregiver Goals Improve gait and balance PT-OP-C Subjective Start: 09/29/23 17:34 Freq: Status: Active Protocol: Document 09/29/23 11:20 DCW (Rec: 09/29/23 17:53 DCW [id number]) OP-PT Subjective Patient Comments Patient Comments It started out pretty gradual , but it's been getting worse more quickly recently. Patient Reported Progress Worse Patient Questionnaires ABC- Activity Specific Balance Confidence Scale ABC Score 64.38% ABC Functional Impairment 20 to <40% Impaired (Score 61- 80) PT-OP-G Mobility & Gait Start: 09/29/23 17:53 Freq: Status: Active Protocol: Document 09/29/23 11:20 DCW (Rec: 09/30/23 08:47 DCW [id number]) OP Gait Assessment Gait Gait Assistance Required: Standby Assistance Assistive Devices Assistive Device None Gait Deviations General Gait Pattern Decreased Stride Length, Decreased Feet Clearance, Festinating,Flexed Trunk, Narrow Based Gait PT-OP-M Strength Start: 09/29/23 17:34 Freq: Status: Active Protocol: Document 09/29/23 11:20 DCW (Rec: 09/29/23 17:53 DCW [id number]) Hip Strength Hip Manual Muscle Testing Right Flexion (L2) 4- Good- Extension (S1) 4 Good Abduction 4+ Good+ Adduction 4+ Good+ External Rotation 4+ Good+ Internal Rotation 4+ Good+ Left Flexion (L2) 4- Good- Extension (S1) 4- Good- Abduction 4+ Good+ Adduction 4+ Good+ External Rotation 4+ Good+ Internal Rotation 4+ Good+ Knee Strength Knee Manual Muscle Testing Right Flexion (S2) 4- Good- Extension (L3) 4+ Good+ Left Flexion (S2) 4- Good- Extension (L3) 4+ Good+ PT-OP-O Vestibular Start: 09/29/23 17:34 Freq: Status: Active Protocol: Document 09/29/23 11:20 DCW (Rec: 09/29/23 17:53 DCW [id number]) Vestibular Assessment Visual Testing Smooth Pursuits Horizontal WNL Smooth Pursuits Vertical WNL Saccades Horizontal WNL Positional Testing Chamberlain-Hallpike Positive Left,Upbeating,< 60 Seconds PT-OP-Q Treatments Start: 09/29/23 17:34 Freq: Status: Active Protocol: Document 09/29/23 11:20 DCW (Rec: 09/29/23 17:53 [facility] [id number]) Canalithic Repositioning BPPV Treatment Alo Affected Canal(s) Left Posterior Reps x1 Comments Modified Alo PT-OP-T Assessment and Plan Start: 09/29/23 17:34 Freq: Status: Active Protocol: Document 09/29/23 11:20 DCW (Rec: 09/29/23 17:53 [facility] [id number]) Physical Therapy Assessment Rehab Potential Rehabilitation Potential Fair Evaluation Complexity Number of Personal Factors/Comorbidities 3 or More Number of Body Systems Impaired 4 or More Clinical Presentation at Evaluation Unstable Impairments Impairments Activity Tolerance,Balance, Functional Activities, Functional Mobility,Gait,ROM, Soft Tissue Mobility,Strength, Vestibular Goals Three Impairment MMT of 4-/5 with bilateral hip and knee flexion Snf Goal (LTG) Pt to improve hip and knee flexion strength to at least 4 +/5 in order to improve stability and control during gait. LTG Duration 11/29/23 Two Impairment Positive left Chamberlain-Hallpike Finishing Machine Operator Automatic Goal (LTG) Pt to exhibit negative positional testing bilaterally LTG Duration 11/29/23 One Impairment Pt does not have an appropriate home exercise program Short Term Goal (STG) Pt to be independent and compliant with an appropriate HEP STG Duration 10/30/23 Assessment Summary Assessment Pt presents with poor balance and difficulty walking consistent with likely neuro diagnosis, pt will be getting checked for hydrocephalus in the upcoming months. Severely festinating gait pattern with small, shuffling steps, small KAREN, and poor foot clearance. Pt additionally shows some mild/moderate weakness in bilateral hip and knee flexion . Plan to perform further balance testing at next visit. During assessment, however, pt was found to be experiencing positional vertigo, so further vestibular testing was performed, as it could easily be affecting his balance and increasing his risk of falls. During left Lynda -Hallpike test, pt complained of vertigo and demonstrated up -beating, torsional nystagmus lasting approximately 10 seconds, consistent with diagnosis of left-sided posterior canal BPPV, canalithiasis-type. Pt was treated with a left-sided modified Alo maneuver. Pt was educated on BPPV, expectations for treatment, and post-Lao restrictions. Pt would likely benefit from further vestibular testing at his next scheduled visit, and if positional testing is negative, continue with balance testing. Physical Therapy Plan Frequency and Duration Frequency of Treatment 2x/Week Plan of Care Start Date 09/29/23 Plan of Care End Date 11/29/23 Therapeutic Interventions Therapeutic Interventions Balance Training,Canalithic Repositioning,Home Exercise Program,Manual Therapy, Neuromuscular Re-education, Patient/Caregiver Education, Self-Care/Home Management,Soft Tissue Mobilization, Therapeutic Activities, Therapeutic Exercises, Vestibular Rehabilitation Next Visit Focus/Plan Next Note Type Treatment Note Next Visit Plan Further positional testing, CRM as indicated, complete balance testing
--- NOTE | 2023-09-29 12:00 | PT.OPPOC ---
Physical, Occupational & Speech Therapy At [facility] Current Diagnoses Polyneuropathy, unspecified (09/29/23) Benign paroxysmal vertigo, left ear (09/29/23) Unsteadiness on feet (09/29/23) Other abnormalities of gait and mobility (09/29/23) Visit Care Team Role Provider Type Donnell Mascorro MD Attending Provider Physician Family Provider Primary Care Provider Referring Provider Specialty: Internal Medicine Address: [address] [place] [address], [facility] Email: [email or web address] Plan Of Care PT-OP-T Assessment and Plan Start: 09/29/23 17:34 Freq: Status: Active Protocol: Document 09/29/23 11:20 DCW (Rec: 09/29/23 17:53 DCW [id number]) Physical Therapy Assessment Rehab Potential Rehabilitation Potential Fair Evaluation Complexity Number of Personal Factors/Comorbidities 3 or More Number of Body Systems Impaired 4 or More Clinical Presentation at Evaluation Unstable Impairments Impairments Activity Tolerance,Balance, Functional Activities, Functional Mobility,Gait,ROM, Soft Tissue Mobility,Strength, Vestibular Goals Three Impairment MMT of 4-/5 with bilateral hip and knee flexion Deli/Bakery Associate Goal (LTG) Pt to improve hip and knee flexion strength to at least 4 +/5 in order to improve stability and control during gait. LTG Duration 11/29/23 Two Impairment Positive left [place]-Hallpike Deli/Bakery Associate Goal (LTG) Pt to exhibit negative positional testing bilaterally LTG Duration 11/29/23 One Impairment Pt does not have an appropriate home exercise program Short Term Goal (STG) Pt to be independent and compliant with an appropriate HEP STG Duration 10/30/23 Assessment Summary Assessment Pt presents with poor balance and difficulty walking consistent with likely neuro diagnosis, pt will be getting checked for hydrocephalus in the upcoming months. Severely festinating gait pattern with small, shuffling steps, small KAREN, and poor foot clearance. Pt additionally shows some mild/moderate weakness in bilateral hip and knee flexion . Plan to perform further balance testing at next visit. During assessment, however, pt was found to be experiencing positional vertigo, so furhter vestibular testing was performed, as it could easily be affecting his balance and increasing his risk of falls. During left [place] -Hallpike test, pt complained of vertigo and demonstrated up -beating, torsional nystagmus lasting approximately 10 seconds, consistent with diagnosis of left-sided posterior canal BPPV, canalithiasis-type. Pt was treated with a left-sided modified Alo maneuver. Pt was educated on BPPV, expectations for treatment, and post-Alo restrictions. Pt would likely benefit from further vestibular testing at his next scheduled visit, and if positional testing is negative, continue with balance testing. Physical Therapy Plan Frequency and Duration Frequency of Treatment 2x/Week Plan of Care Start Date 09/29/23 Plan of Care End Date 11/29/23 Therapeutic Interventions Therapeutic Interventions Balance Training,Canalithic Repositioning,Home Exercise Program,Manual Therapy, Neuromuscular Re-education, Patient/Caregiver Education, Self-Care/Home Management,Soft Tissue Mobilization, Therapeutic Activities, Therapeutic Exercises, Vestibular Rehabilitation Next Visit Focus/Plan Next Note Type Treatment Note Next Visit Plan Further positional testing, CRM as indicated, complete balance testing Plan of Care Dates Plan of Care Start Date 09/29/23 Plan of Care End Date 11/29/23 Electronically Signed by: Jarrod Chiu, PT 09/30/23 0855 If you are in agreement with this Plan of Care, please return a signed and dated copy. I have reviewed this Plan of Care and certify that the skilled therapy services above are required to meet the patient?s needs. Physician Signature Date Printed Name and Credentials Clinical Instructor Signature Printed Name and Credentials
--- NOTE | 2023-10-03 12:03 | PT.OTN ---
Current Diagnoses Polyneuropathy, unspecified (10/03/23) Benign paroxysmal vertigo, left ear (10/03/23) Unsteadiness on feet (10/03/23) Other abnormalities of gait and mobility (10/03/23) Physical Therapy Treatment Note PT-OP-A Visit Information Start: 09/29/23 17:34 Freq: Status: Active Protocol: Document 10/03/23 11:15 DCW (Rec: 10/03/23 12:02 DCW [id number]) Out-Patient Physical Therapy Visit Information Visit Information Visit Type Treatment Note Visit Start Time 11:15 Visit Stop Time 12:00 Visit Number 2 Number of FISH STRAIGHTENER Visits 0 Evaluation Information Evaluation Date 09/29/23 PT-OP-B Current Condition Start: 09/29/23 17:34 Freq: Status: Active Protocol: Document 09/29/23 11:20 DCW (Rec: 09/29/23 17:53 DCW [id number]) Current Condition History of Current Condition Current Complaints Worsening balance, gait, and positional dizziness History of Current Condition Pt is an 82 year old male presenting to skilled therapy due to worsening gait and imbalance. Pt has developed a shuffling, festinating gait pattern. Reports he was initial put on medications and run through tests for Parkinson's, but did not have any response. Reports his PCP now believes it is hydrocephalus, pt is waiting to get in with a Neurologist down in [place], currently scheduled some time in November. In the meantime, pt notes his balance and gait has been worsening at an increased rate . Reports if he attempts to walk across his house, his steps get smaller and smaller until he is nearly at his destination and will occasionally get stuck right before it, not able to get closer. Initiation of movement is typically not an issue. Fatigues very quickly, reports he can bend down and lift a heavier object 3x, but then is too fatigued to continue, and needs to rest for an hour. During subjective history, pt also makes offhand comment about dizziness with position changes, reports he gets dizzy for 10-15 seconds when laying in bed or getting up from bed , or when bending down to pick something up. Has been ongoing for a while. Prior Treatments and Tests Head CT: IMPRESSION: Prominent lateral ventricles, which are mildly larger than in 2018. Although not striking , the imaging findings would be compatible with a mild degree of normal pressure hydrocephalus. No prior territorial infarct can be seen. per Yolis Maciel on 08/29/2023 Treatment Goals Patient/Caregiver Goals Improve gait and balance PT-OP-C Subjective Start: 09/29/23 17:34 Freq: Status: Active Protocol: Document 10/03/23 11:15 DCW (Rec: 10/03/23 12:02 DCW [id number]) OP-PT Subjective Patient Comments Patient Comments I'm feeling better. That dizziness has gone away. PT-OP-D Balance Start: 09/29/23 17:34 Freq: Status: Active Protocol: Document 10/03/23 11:15 DCW (Rec: 10/03/23 12:02 DCW [id number]) Balance Tests Coon Balance Test Coon Balance Test Score 51/56 Coon Balance Assessment Evaluation Sitting to Standing Ability Independent w/out Hands Unsupported Stance Safely- 2 minutes Sitting Unsupported, Feet on Floor Safely- 2 minutes Standing to Sitting Ability Safely, Minimal Hand Use Transfer Ability Safely, Minimal Hand Use Unsupported Stance- Eyes Closed Supervision, 10 seconds Unsupported Stance- Eyes Open Independent, 1 minute Reaching Forward Standing Safely, 5 inches Pick- Up Object From Floor Independent/Safe Look Behind Shoulder - Standing Shifts Weight Well Turning 360 Degrees Turns Bilateral, < 4 secs Unsupported Stance, Alternating Feet on 4 Steps w/Supervision Stair Unsupported Tandem Stance Achieves Tandem Unilateral Leg Stance Lifts Leg/Holds 5-10 secs Total Score Coon Total Score (out of 56 points) 51 Coon Impairment Rating 1 to 19% Impaired (Score 45-55 ) PT-OP-E Functional Tests Start: 09/29/23 17:34 Freq: Status: Active Protocol: Document 10/03/23 11:15 DCW (Rec: 10/03/23 12:02 DCW [id number]) Functional Tests Dynamic Gait Index (DGI) Score 1724 DGI Impairment Rating 20 to <40% Impaired (Score 15- 19) PT-OP-G Mobility & Gait Start: 09/29/23 17:53 Freq: Status: Active Protocol: Document 09/29/23 11:20 DCW (Rec: 09/30/23 08:47 DCW [id number]) OP Gait Assessment Gait Gait Assistance Required: Standby Assistance Assistive Devices Assistive Device None Gait Deviations General Gait Pattern Decreased Stride Length, Decreased Feet Clearance, Festinating,Flexed Trunk, Narrow Based Gait PT-OP-M Strength Start: 09/29/23 17:34 Freq: Status: Active Protocol: Document 09/29/23 11:20 DCW (Rec: 09/29/23 17:53 DCW [id number]) Hip Strength Hip Manual Muscle Testing Right Flexion (L2) 4- Good- Extension (S1) 4 Good Abduction 4+ Good+ Adduction 4+ Good+ External Rotation 4+ Good+ Internal Rotation 4+ Good+ Left Flexion (L2) 4- Good- Extension (S1) 4- Good- Abduction 4+ Good+ Adduction 4+ Good+ External Rotation 4+ Good+ Internal Rotation 4+ Good+ Knee Strength Knee Manual Muscle Testing Right Flexion (S2) 4- Good- Extension (L3) 4+ Good+ Left Flexion (S2) 4- Good- Extension (L3) 4+ Good+ PT-OP-O Vestibular Start: 09/29/23 17:34 Freq: Status: Active Protocol: Document 10/03/23 11:15 DCW (Rec: 10/03/23 12:02 DCW [id number]) Vestibular Assessment Positional Testing Lynda-Hallpike Negative Left PT-OP-Q Treatments Start: 09/29/23 17:34 Freq: Status: Active Protocol: Document 10/03/23 11:15 DCW (Rec: 10/03/23 12:02 DCW [id number]) Manual Therapy Treatment Other Other Manual Treatments Positional Testing Neuro Re-Education Treatment Other Activities Testing Details NIRALI Coon PT-OP-T Assessment and Plan Start: 09/29/23 17:34 Freq: Status: Active Protocol: Document 10/03/23 11:15 DCW (Rec: 10/03/23 12:02 DCW [id number]) Physical Therapy Assessment Impairments Impairments Activity Tolerance,Balance, Functional Activities, Functional Mobility,Gait,ROM, Soft Tissue Mobility,Strength, Vestibular Goals Three Impairment MMT of 4-/5 with bilateral hip and knee flexion Care Home Goal (LTG) Pt to improve hip and knee flexion strength to at least 4 +/5 in order to improve stability and control during gait. LTG Duration 11/29/23 Two Impairment Positive left Lynda-Hallpike Porter Baggage Goal (LTG) Pt to exhibit negative positional testing bilaterally LTG Duration 11/29/23 One Impairment Pt does not have an appropriate home exercise program Short Term Goal (STG) Pt to be independent and compliant with an appropriate HEP STG Duration 10/30/23 Assessment Summary Assessment Pt presenting with significant improvement in balance and gait today, walking with a heel-toe gait pattern, appropriate foot clearance and step length. No longer exhibiting signs of BPPV. DGI does still show increased falls risk, scores 17/24, will continue to benefit from further skilled therapeutic intervention. Difficult to determine at this time if improvement in gait is due to unrelated change in potential intracranial pressures secondary to potential hydrocephalus Dx, or if it is due to BPPV treatment. Continue to assess gait patterns going forward. Physical Therapy Plan Frequency and Duration Frequency of Treatment 2x/Week Plan of Care Start Date 09/29/23 Plan of Care End Date 11/29/23 Therapeutic Interventions Therapeutic Interventions Balance Training,Canalithic Repositioning,Home Exercise Program,Manual Therapy, Neuromuscular Re-education, Patient/Caregiver Education, Self-Care/Home Management,Soft Tissue Mobilization, Therapeutic Activities, Therapeutic Exercises, Vestibular Rehabilitation Next Visit Focus/Plan Next Note Type Treatment Note Next Visit Plan Further positional testing, CRM as indicated, complete balance testing
--- NOTE | 2023-10-05 11:10 | PT.OTN ---
Current Diagnoses Polyneuropathy, unspecified (10/05/23) Benign paroxysmal vertigo, left ear (10/05/23) Unsteadiness on feet (10/05/23) Other abnormalities of gait and mobility (10/05/23) Physical Therapy Treatment Note PT-OP-A Visit Information Start: 09/29/23 17:34 Freq: Status: Active Protocol: Document 10/05/23 10:29 SP (Rec: 10/05/23 11:24 SP [id number]) Out-Patient Physical Therapy Visit Information Visit Information Visit Type Treatment Note Visit Start Time 10:30 Visit Stop Time 11:10 Visit Number 3 Number of MANAGER ERP Visits 1 Evaluation Information Evaluation Date 09/29/23 PT-OP-B Current Condition Start: 09/29/23 17:34 Freq: Status: Active Protocol: Document 09/29/23 11:20 DCW (Rec: 09/29/23 17:53 DCW [id number]) Current Condition History of Current Condition Current Complaints Worsening balance, gait, and positional dizziness History of Current Condition Pt is an 82 year old male presenting to skilled therapy due to worsening gait and imbalance. Pt has developed a shuffling, festinating gait pattern. Reports he was initial put on medications and run through tests for Parkinson's, but did not have any response. Reports his PCP now believes it is hydrocephalus, pt is waiting to get in with a Neurologist down in [place], currently scheduled some time in November. In the meantime, pt notes his balance and gait has been worsening at an increased rate . Reports if he attempts to walk across his house, his steps get smaller and smaller until he is nearly at his destination and will occasionally get stuck right before it, not able to get closer. Initiation of movement is typically not an issue. Fatigues very quickly, reports he can bend down and lift a heavier object 3x, but then is too fatigued to continue, and needs to rest for an hour. During subjective history, pt also makes offhand comment about dizziness with position changes, reports he gets dizzy for 10-15 seconds when laying in bed or getting up from bed , or when bending down to pick something up. Has been ongoing for a while. Prior Treatments and Tests Head CT: IMPRESSION: Prominent lateral ventricles, which are mildly larger than in 2018. Although not striking , the imaging findings would be compatible with a mild degree of normal pressure hydrocephalus. No prior territorial infarct can be seen. per Yolis Maciel on 08/29/2023 Treatment Goals Patient/Caregiver Goals Improve gait and balance PT-OP-C Subjective Start: 09/29/23 17:34 Freq: Status: Active Protocol: Document 10/05/23 10:29 SP (Rec: 10/05/23 11:24 SP [id number]) OP-PT Subjective Patient Comments Patient Comments Pt reports still doing well with no dizziness after last tx. He reports always tells him heel toe and bigger steps. He has B trek poles will bring in future appt and see if using correctly, states not using with correctly with each LE. He has to order/buy new rubber tips. PT-OP-D Balance Start: 09/29/23 17:34 Freq: Status: Active Protocol: Document 10/03/23 11:15 DCW (Rec: 10/03/23 12:02 DCW [id number]) Balance Tests Coon Balance Test Coon Balance Test Score 51/56 Coon Balance Assessment Evaluation Sitting to Standing Ability Independent w/out Hands Unsupported Stance Safely- 2 minutes Sitting Unsupported, Feet on Floor Safely- 2 minutes Standing to Sitting Ability Safely, Minimal Hand Use Transfer Ability Safely, Minimal Hand Use Unsupported Stance- Eyes Closed Supervision, 10 seconds Unsupported Stance- Eyes Open Independent, 1 minute Reaching Forward Standing Safely, 5 inches Pick- Up Object From Floor Independent/Safe Look Behind Shoulder - Standing Shifts Weight Well Turning 360 Degrees Turns Bilateral, < 4 secs Unsupported Stance, Alternating Feet on 4 Steps w/Supervision Stair Unsupported Tandem Stance Achieves Tandem Unilateral Leg Stance Lifts Leg/Holds 5-10 secs Total Score Coon Total Score (out of 56 points) 51 Coon Impairment Rating 1 to 19% Impaired (Score 45-55 ) PT-OP-E Functional Tests Start: 09/29/23 17:34 Freq: Status: Active Protocol: Document 10/03/23 11:15 DCW (Rec: 10/03/23 12:02 DCW [id number]) Functional Tests Dynamic Gait Index (DGI) Score 17/24 DGI Impairment Rating 20 to <40% Impaired (Score 15- 19) PT-OP-G Mobility & Gait Start: 09/29/23 17:53 Freq: Status: Active Protocol: Document 09/29/23 11:20 DCW (Rec: 09/30/23 08:47 DCW [id number]) OP Gait Assessment Gait Gait Assistance Required: Standby Assistance Assistive Devices Assistive Device None Gait Deviations General Gait Pattern Decreased Stride Length, Decreased Feet Clearance, Festinating,Flexed Trunk, Narrow Based Gait PT-OP-M Strength Start: 09/29/23 17:34 Freq: Status: Active Protocol: Document 09/29/23 11:20 DCW (Rec: 09/29/23 17:53 DCW [id number]) Hip Strength Hip Manual Muscle Testing Right Flexion (L2) 4- Good- Extension (S1) 4 Good Abduction 4+ Good+ Adduction 4+ Good+ External Rotation 4+ Good+ Internal Rotation 4+ Good+ Left Flexion (L2) 4- Good- Extension (S1) 4- Good- Abduction 4+ Good+ Adduction 4+ Good+ External Rotation 4+ Good+ Internal Rotation 4+ Good+ Knee Strength Knee Manual Muscle Testing Right Flexion (S2) 4- Good- Extension (L3) 4+ Good+ Left Flexion (S2) 4- Good- Extension (L3) 4+ Good+ PT-OP-O Vestibular Start: 09/29/23 17:34 Freq: Status: Active Protocol: Document 10/03/23 11:15 DCW (Rec: 10/03/23 12:02 DCW [id number]) Vestibular Assessment Positional Testing Lynda-Hallpike Negative Left PT-OP-Q Treatments Start: 09/29/23 17:34 Freq: Status: Active Protocol: Document 10/05/23 10:29 SP (Rec: 10/05/23 11:24 SP [id number]) Cardio Equipment Recumbent Stepper (Sci-Fit) Duration (Minutes) 8 Resistance 3 Seat Position 13 Other LEs only, cued heel press, RPMs 45 Gym Equipment Shuttle Recovery unilateral squat Resistance 50# (1 teal, 1 navy) Reps/Time x15- nice effort bilateral squat Resistance 75# (3 navy) Reps/Time x15- good effort Therapeutic Exercises Sitting Exercises STS Sitting Exercise Name STS>eccentric chair taps (past HEP)- continue HEP Equipment Used mesh chair, arms across chest Reps/Minutes 10 Comments cued slower eccentric control then quick up, keep wt shift fwd/keep toes dn Standing Exercises toe raises Side bilateral Resistance AROM Equipment Used near rail for assist needed Reps/Minutes x15 Comments cued not wt shift back- tiring as reps progressed hip abd & Ext Standing Exercise Name (discussed AROM home, declined HO) Side bilateral Resistance 4# leg wt Equipment Used rail support Reps/Minutes 2x10 each Comments cued tall posture Gait Training Gait Activity gait no AD Device Used 0 Distance/Duration 150 ft, 170 ft Treatment Focus increased stride and foot clearance, arm swing Comments cued taller posture, arms swing with opp LE, heel toe big stride larger space between feet pass each other Neuro Re-Education Treatment Balance Activities step taps Equipment 4# leg wt, 6 step, PRN //barmaid stepping Details alternate with tandem walking Equipment //bars PRN Reps/Duration 10 ft 4 lengths Comments cued slower pacing larger steps back tandem walking Details alternate with back stepping Equipment //bars PRN Reps/Duration 10 ft x4 lengths Comments cued wt shift tall into forward leg balance Details stagger stance, tandem Equipment large blue foam, //bars Comments stagger HTs tandem stationary cues taller posture, WB = BLEs PT-OP-T Assessment and Plan Start: 09/29/23 17:34 Freq: Status: Active Protocol: Document 10/05/23 10:29 SP (Rec: 10/05/23 11:24 SP [id number]) Physical Therapy Assessment Goals Three Impairment MMT of 4-/5 with bilateral hip and knee flexion Spanish Speaking Nanny Goal (LTG) Pt to improve hip and knee flexion strength to at least 4 +/5 in order to improve stability and control during gait. LTG Duration 11/29/23 Two Impairment Positive left Lynda-Hallpike Spanish Speaking Nanny Goal (LTG) Pt to exhibit negative positional testing bilaterally LTG Duration 11/29/23 One Impairment Pt does not have an appropriate home exercise program Short Term Goal (STG) Pt to be independent and compliant with an appropriate HEP STG Duration 10/30/23 Assessment Summary Assessment Pt responded well to increased resistance to hip strengthening on shuttle recovery and standing ther ex but will perform AROM home. CUes for increased heel toe, stride, arm swing during gait, stop and reset if find NBOS or shuffling for safety due is risk for falling. Pt reported anterior hip stretch with back stepping and wt shift tall tandem walking. Pt will bring trek poles next tx to assess patterning for outdoor community walking support, gives him feedback not using with correct foot. Physical Therapy Plan Frequency and Duration Frequency of Treatment 2x/Week Plan of Care Start Date 09/29/23 Plan of Care End Date 11/29/23 Therapeutic Interventions Therapeutic Interventions Balance Training,Canalithic Repositioning,Home Exercise Program,Manual Therapy, Neuromuscular Re-education, Patient/Caregiver Education, Self-Care/Home Management,Soft Tissue Mobilization, Therapeutic Activities, Therapeutic Exercises, Vestibular Rehabilitation Next Visit Focus/Plan Next Note Type Treatment Note Next Visit Plan Balance/gait training, pt planning on bringing in trekking poles for sizing/ instruction
--- NOTE | 2023-10-10 14:28 | PT.OTN ---
Current Diagnoses Polyneuropathy, unspecified (10/10/23) Benign paroxysmal vertigo, left ear (10/10/23) Unsteadiness on feet (10/10/23) Other abnormalities of gait and mobility (10/10/23) Physical Therapy Treatment Note PT-OP-A Visit Information Start: 09/29/23 17:34 Freq: Status: Active Protocol: Document 10/10/23 13:48 SP (Rec: 10/10/23 14:56 SP [id number]) Out-Patient Physical Therapy Visit Information Visit Information Visit Type Treatment Note Visit Start Time 13:48 Visit Stop Time 14:28 Visit Number 4 Number of BUILDING ASSOCIATE Visits 2 Evaluation Information Evaluation Date 09/29/23 PT-OP-B Current Condition Start: 09/29/23 17:34 Freq: Status: Active Protocol: Document 09/29/23 11:20 DCW (Rec: 09/29/23 17:53 DCW [id number]) Current Condition History of Current Condition Current Complaints Worsening balance, gait, and positional dizziness History of Current Condition Pt is an 82 year old male presenting to skilled therapy due to worsening gait and imbalance. Pt has developed a shuffling, festinating gait pattern. Reports he was initial put on medications and run through tests for Parkinson's, but did not have any response. Reports his PCP now believes it is hydrocephalus, pt is waiting to get in with a Neurologist down in [place], currently scheduled some time in November. In the meantime, pt notes his balance and gait has been worsening at an increased rate . Reports if he attempts to walk across his house, his steps get smaller and smaller until he is nearly at his destination and will occasionally get stuck right before it, not able to get closer. Initiation of movement is typically not an issue. Fatigues very quickly, reports he can bend down and lift a heavier object 3x, but then is too fatigued to continue, and needs to rest for an hour. During subjective history, pt also makes offhand comment about dizziness with position changes, reports he gets dizzy for 10-15 seconds when laying in bed or getting up from bed , or when bending down to pick something up. Has been ongoing for a while. Prior Treatments and Tests Head CT: IMPRESSION: Prominent lateral ventricles, which are mildly larger than in 2018. Although not striking , the imaging findings would be compatible with a mild degree of normal pressure hydrocephalus. No prior territorial infarct can be seen. per Yolis Maciel on 08/29/2023 Treatment Goals Patient/Caregiver Goals Improve gait and balance PT-OP-C Subjective Start: 09/29/23 17:34 Freq: Status: Active Protocol: Document 10/10/23 13:48 SP (Rec: 10/10/23 14:56 SP [id number]) OP-PT Subjective Patient Comments Patient Comments Pt reports not doing well with exercises at home, need to review them gain. Also having hard time feet positioning and pivot between 2 pieces of furniture and balance, if can incorporate in PT today. PT-OP-D Balance Start: 09/29/23 17:34 Freq: Status: Active Protocol: Document 10/03/23 11:15 DCW (Rec: 10/03/23 12:02 DCW [id number]) Balance Tests Coon Balance Test Coon Balance Test Score 51/56 Coon Balance Assessment Evaluation Sitting to Standing Ability Independent w/out Hands Unsupported Stance Safely- 2 minutes Sitting Unsupported, Feet on Floor Safely- 2 minutes Standing to Sitting Ability Safely, Minimal Hand Use Transfer Ability Safely, Minimal Hand Use Unsupported Stance- Eyes Closed Supervision, 10 seconds Unsupported Stance- Eyes Open Independent, 1 minute Reaching Forward Standing Safely, 5 inches Pick- Up Object From Floor Independent/Safe Look Behind Shoulder - Standing Shifts Weight Well Turning 360 Degrees Turns Bilateral, < 4 secs Unsupported Stance, Alternating Feet on 4 Steps w/Supervision Stair Unsupported Tandem Stance Achieves Tandem Unilateral Leg Stance Lifts Leg/Holds 5-10 secs Total Score Coon Total Score (out of 56 points) 51 Coon Impairment Rating 1 to 19% Impaired (Score 45-55 ) PT-OP-E Functional Tests Start: 09/29/23 17:34 Freq: Status: Active Protocol: Document 10/03/23 11:15 DCW (Rec: 10/03/23 12:02 DCW [id number]) Functional Tests Dynamic Gait Index (DGI) Score 1724 DGI Impairment Rating 20 to <40% Impaired (Score 15- 19) PT-OP-G Mobility & Gait Start: 09/29/23 17:53 Freq: Status: Active Protocol: Document 09/29/23 11:20 DCW (Rec: 09/30/23 08:47 DCW [id number]) OP Gait Assessment Gait Gait Assistance Required: Standby Assistance Assistive Devices Assistive Device None Gait Deviations General Gait Pattern Decreased Stride Length, Decreased Feet Clearance, Festinating,Flexed Trunk, Narrow Based Gait PT-OP-M Strength Start: 09/29/23 17:34 Freq: Status: Active Protocol: Document 09/29/23 11:20 DCW (Rec: 09/29/23 17:53 DCW [id number]) Hip Strength Hip Manual Muscle Testing Right Flexion (L2) 4- Good- Extension (S1) 4 Good Abduction 4+ Good+ Adduction 4+ Good+ External Rotation 4+ Good+ Internal Rotation 4+ Good+ Left Flexion (L2) 4- Good- Extension (S1) 4- Good- Abduction 4+ Good+ Adduction 4+ Good+ External Rotation 4+ Good+ Internal Rotation 4+ Good+ Knee Strength Knee Manual Muscle Testing Right Flexion (S2) 4- Good- Extension (L3) 4+ Good+ Left Flexion (S2) 4- Good- Extension (L3) 4+ Good+ PT-OP-O Vestibular Start: 09/29/23 17:34 Freq: Status: Active Protocol: Document 10/03/23 11:15 DCW (Rec: 10/03/23 12:02 DCW [id number]) Vestibular Assessment Positional Testing Lynda-Hallpike Negative Left PT-OP-Q Treatments Start: 09/29/23 17:34 Freq: Status: Active Protocol: Document 10/10/23 13:48 SP (Rec: 10/10/23 14:56 SP [id number]) Cardio Equipment Recumbent Stepper (Sci-Fit) Duration (Minutes) 8 Resistance 3 Seat Position 12>13 Other LEs only 6 min then added arms , cued heel press, RPMs 45>50 Therapeutic Exercises Sitting Exercises STS Sitting Exercise Name STS>eccentric chair taps- ed continue as HEP Equipment Used mesh chair, arms across chest Reps/Minutes 10 Comments cued slower eccentric control then quick up, keep wt shift fwd/keep toes dn Standing Exercises toe raises Side bilateral Resistance AROM Equipment Used near rail for assist needed Reps/Minutes x15 (stop during gait around gym) Comments cued not wt shift back- tiring as reps progressed Therapeutic Activity Therapeutic Activity transfers Name assimulation around ottoman to chair- carrying cup water Reps/Minutes 8 min Comments cued increase DF and height foot clearance/ marching steps , taller posture, square up fully to chair and slower descend sit. Gait Training Gait Activity gait no AD Device Used 0 Distance/Duration 150 ft,170 ft Treatment Focus increased stride and foot clearance, arm swing Comments cued taller posture, arms swing with opp LE, heel toe big LE reaching stride larger space between feet pass each other Neuro Re-Education Treatment Balance Activities step up/back down Surface 4# leg wt, 6 step Equipment near //bars if needed Comments cued wt shift into advanced LE , larger step placement, not slight scuff. hurdles Details step to x2, receiprocal stepping x3 laps Surface floor Equipment 6 hurdles inside //bars Comments cued heel clearance leading and trailing toe, wt shift into advanced LE, close SBA /c GB foam Details marching Surface large foam Equipment 4# leg wt, very little contact //bar Reps/Duration x20 Comments cued wt shift into forefoot COG over KAREN step taps Equipment 4# leg wt, 6 step, PRN //bar Reps/Duration x10 alternate BLEs balance Equipment large blue foam, //bars Comments stagger HTs, EC 3 sec tandem stationary: R fwd 30s, L fwd 3 sec, 15 sec *cues taller posture, WB fwd into forefoot = BLEs PT-OP-T Assessment and Plan Start: 09/29/23 17:34 Freq: Status: Active Protocol: Document 10/10/23 13:48 SP (Rec: 10/10/23 14:56 SP [id number]) Physical Therapy Assessment Goals Three Impairment MMT of 4-/5 with bilateral hip and knee flexion Usp Goal (LTG) Pt to improve hip and knee flexion strength to at least 4 +/5 in order to improve stability and control during gait. LTG Duration 11/29/23 Two Impairment Positive left Luckey-Hallpike Usp Goal (LTG) Pt to exhibit negative positional testing bilaterally LTG Duration 11/29/23 One Impairment Pt does not have an appropriate home exercise program Short Term Goal (STG) Pt to be independent and compliant with an appropriate HEP STG Duration 10/30/23 Assessment Summary Assessment Time spent on foot clearance, stride during gait, LE strengthening step taps/step up/back down and activities as side marching steps to assimulate stability and body positioning safety to sit in smaller spaces with education cues carryover support for home. Educated beneficial to continue HEP: STS Physical Therapy Plan Frequency and Duration Frequency of Treatment 2x/Week Plan of Care Start Date 09/29/23 Plan of Care End Date 11/29/23 Therapeutic Interventions Therapeutic Interventions Balance Training,Canalithic Repositioning,Home Exercise Program,Manual Therapy, Neuromuscular Re-education, Patient/Caregiver Education, Self-Care/Home Management,Soft Tissue Mobilization, Therapeutic Activities, Therapeutic Exercises, Vestibular Rehabilitation Next Visit Focus/Plan Next Note Type Treatment Note Next Visit Plan Review HEP should be doing. POC: Balance/gait training, pt reminded bringing in trekking poles for sizing/instruction
--- NOTE | 2023-10-13 14:29 | PT.OTN ---
Current Diagnoses Polyneuropathy, unspecified (10/13/23) Benign paroxysmal vertigo, left ear (10/13/23) Unsteadiness on feet (10/13/23) Other abnormalities of gait and mobility (10/13/23) Physical Therapy Treatment Note PT-OP-A Visit Information Start: 09/29/23 17:34 Freq: Status: Active Protocol: Document 10/13/23 13:45 DCW (Rec: 10/13/23 14:29 DCW [id number]) Out-Patient Physical Therapy Visit Information Visit Information Visit Type Treatment Note Visit Start Time 13:45 Visit Stop Time 14:30 Visit Number 5 Number of WEIGHT TESTER Visits 0 Evaluation Information Evaluation Date 09/29/23 PT-OP-B Current Condition Start: 09/29/23 17:34 Freq: Status: Active Protocol: Document 09/29/23 11:20 DCW (Rec: 09/29/23 17:53 DCW [id number]) Current Condition History of Current Condition Current Complaints Worsening balance, gait, and positional dizziness History of Current Condition Pt is an 82 year old male presenting to skilled therapy due to worsening gait and imbalance. Pt has developed a shuffling, festinating gait pattern. Reports he was initial put on medications and run through tests for Parkinson's, but did not have any response. Reports his PCP now believes it is hydrocephalus, pt is waiting to get in with a Neurologist down in [place], currently scheduled some time in November. In the meantime, pt notes his balance and gait has been worsening at an increased rate . Reports if he attempts to walk across his house, his steps get smaller and smaller until he is nearly at his destination and will occasionally get stuck right before it, not able to get closer. Initiation of movement is typically not an issue. Fatigues very quickly, reports he can bend down and lift a heavier object 3x, but then is too fatigued to continue, and needs to rest for an hour. During subjective history, pt also makes offhand comment about dizziness with position changes, reports he gets dizzy for 10-15 seconds when laying in bed or getting up from bed , or when bending down to pick something up. Has been ongoing for a while. Prior Treatments and Tests Head CT: IMPRESSION: Prominent lateral ventricles, which are mildly larger than in 2018. Although not striking , the imaging findings would be compatible with a mild degree of normal pressure hydrocephalus. No prior territorial infarct can be seen. per Yolis Maciel on 08/29/2023 Treatment Goals Patient/Caregiver Goals Improve gait and balance PT-OP-C Subjective Start: 09/29/23 17:34 Freq: Status: Active Protocol: Document 10/13/23 13:45 DCW (Rec: 10/13/23 14:29 DCW [id number]) OP-PT Subjective Patient Comments Patient Comments Pt notes he fell out of bed this morning, but nothing broke or anything. PT-OP-D Balance Start: 09/29/23 17:34 Freq: Status: Active Protocol: Document 10/03/23 11:15 DCW (Rec: 10/03/23 12:02 DCW [id number]) Balance Tests Coon Balance Test Coon Balance Test Score 51/56 Coon Balance Assessment Evaluation Sitting to Standing Ability Independent w/out Hands Unsupported Stance Safely- 2 minutes Sitting Unsupported, Feet on Floor Safely- 2 minutes Standing to Sitting Ability Safely, Minimal Hand Use Transfer Ability Safely, Minimal Hand Use Unsupported Stance- Eyes Closed Supervision, 10 seconds Unsupported Stance- Eyes Open Independent, 1 minute Reaching Forward Standing Safely, 5 inches Pick- Up Object From Floor Independent/Safe Look Behind Shoulder - Standing Shifts Weight Well Turning 360 Degrees Turns Bilateral, < 4 secs Unsupported Stance, Alternating Feet on 4 Steps w/Supervision Stair Unsupported Tandem Stance Achieves Tandem Unilateral Leg Stance Lifts Leg/Holds 5-10 secs Total Score Coon Total Score (out of 56 points) 51 Coon Impairment Rating 1 to 19% Impaired (Score 45-55 ) PT-OP-E Functional Tests Start: 09/29/23 17:34 Freq: Status: Active Protocol: Document 10/03/23 11:15 DCW (Rec: 10/03/23 12:02 DCW [id number]) Functional Tests Dynamic Gait Index (DGI) Score 17/24 DGI Impairment Rating 20 to <40% Impaired (Score 15- 19) PT-OP-G Mobility & Gait Start: 09/29/23 17:53 Freq: Status: Active Protocol: Document 09/29/23 11:20 DCW (Rec: 09/30/23 08:47 DCW [id number]) OP Gait Assessment Gait Gait Assistance Required: Standby Assistance Assistive Devices Assistive Device None Gait Deviations General Gait Pattern Decreased Stride Length, Decreased Feet Clearance, Festinating,Flexed Trunk, Narrow Based Gait PT-OP-M Strength Start: 09/29/23 17:34 Freq: Status: Active Protocol: Document 09/29/23 11:20 DCW (Rec: 09/29/23 17:53 DCW [id number]) Hip Strength Hip Manual Muscle Testing Right Flexion (L2) 4- Good- Extension (S1) 4 Good Abduction 4+ Good+ Adduction 4+ Good+ External Rotation 4+ Good+ Internal Rotation 4+ Good+ Left Flexion (L2) 4- Good- Extension (S1) 4- Good- Abduction 4+ Good+ Adduction 4+ Good+ External Rotation 4+ Good+ Internal Rotation 4+ Good+ Knee Strength Knee Manual Muscle Testing Right Flexion (S2) 4- Good- Extension (L3) 4+ Good+ Left Flexion (S2) 4- Good- Extension (L3) 4+ Good+ PT-OP-O Vestibular Start: 09/29/23 17:34 Freq: Status: Active Protocol: Document 10/03/23 11:15 DCW (Rec: 10/03/23 12:02 DCW [id number]) Vestibular Assessment Positional Testing [place]-Hallpike Negative Left PT-OP-Q Treatments Start: 09/29/23 17:34 Freq: Status: Active Protocol: Document 10/13/23 13:45 DCW (Rec: 10/13/23 14:29 DCW [id number]) Gym Equipment Shuttle Recovery unilateral squat Resistance 50# (1 teal, 1 navy) Reps/Time x15 bilateral squat Resistance 75# (3 navy) Reps/Time x15 Shuttle Balance Red Details WBOS, Staggered Manual Therapy Treatment Other Other Manual Treatments Positional testing - Hallpike, Roll test Neuro Re-Education Treatment Balance Activities SLS Details SLS balance Details NBOS (X1), Semi-tandem (visual conflict) Equipment large blue foam, //bars PT-OP-T Assessment and Plan Start: 09/29/23 17:34 Freq: Status: Active Protocol: Document 10/13/23 13:45 DCW (Rec: 10/13/23 14:29 DCW [id number]) Physical Therapy Assessment Goals Three Impairment MMT of 4-/5 with bilateral hip and knee flexion School Health Assistant Goal (LTG) Pt to improve hip and knee flexion strength to at least 4 +/5 in order to improve stability and control during gait. LTG Duration 11/29/23 Two Impairment Positive left [place]-Hallpike School Health Assistant Goal (LTG) Pt to exhibit negative positional testing bilaterally LTG Duration 11/29/23 One Impairment Pt does not have an appropriate home exercise program Short Term Goal (STG) Pt to be independent and compliant with an appropriate HEP STG Duration 10/30/23 Assessment Summary Assessment Pt continues to not display any signs/symptoms of continuing BPPV, so focused today on balance and coordination challenges. Demonstrated increased difficulty with eyes closed and visual conflict. Physical Therapy Plan Frequency and Duration Frequency of Treatment 2x/Week Plan of Care Start Date 09/29/23 Plan of Care End Date 11/29/23 Therapeutic Interventions Therapeutic Interventions Balance Training,Canalithic Repositioning,Home Exercise Program,Manual Therapy, Neuromuscular Re-education, Patient/Caregiver Education, Self-Care/Home Management,Soft Tissue Mobilization, Therapeutic Activities, Therapeutic Exercises, Vestibular Rehabilitation Next Visit Focus/Plan Next Note Type Treatment Note Next Visit Plan Review HEP should be doing. POC: Balance/gait training, pt reminded bringing in trekking poles for sizing/instruction
--- NOTE | 2023-10-18 09:08 | PT-OP ANOTE ---
Pt cancelled via PT Connect texting, no reason given. RESIDENT DIRECTOR sent message to schedulers to call pt and suggest rescheduling to tomorrow openings in RESIDENT DIRECTOR schedule.
--- NOTE | 2023-10-26 14:40 | PT.OTN ---
Current Diagnoses Polyneuropathy, unspecified (10/26/23) Benign paroxysmal vertigo, left ear (10/26/23) Unsteadiness on feet (10/26/23) Other abnormalities of gait and mobility (10/26/23) Physical Therapy Treatment Note PT-OP-A Visit Information Start: 09/29/23 17:34 Freq: Status: Active Protocol: Document 10/26/23 13:51 SP (Rec: 10/26/23 15:18 SP [id number]) Out-Patient Physical Therapy Visit Information Visit Information Visit Type Treatment Note Visit Start Time 13:51 Visit Stop Time 14:40 Visit Number 6 Number of PRESIDENT & CEO Visits 1 Evaluation Information Evaluation Date 09/29/23 PT-OP-B Current Condition Start: 09/29/23 17:34 Freq: Status: Active Protocol: Document 09/29/23 11:20 DCW (Rec: 09/29/23 17:53 DCW [id number]) Current Condition History of Current Condition Current Complaints Worsening balance, gait, and positional dizziness History of Current Condition Pt is an 82 year old male presenting to skilled therapy due to worsening gait and imbalance. Pt has developed a shuffling, festinating gait pattern. Reports he was initial put on medications and run through tests for Parkinson's, but did not have any response. Reports his PCP now believes it is hydrocephalus, pt is waiting to get in with a Neurologist down in [place], currently scheduled some time in November. In the meantime, pt notes his balance and gait has been worsening at an increased rate . Reports if he attempts to walk across his house, his steps get smaller and smaller until he is nearly at his destination and will occasionally get stuck right before it, not able to get closer. Initiation of movement is typically not an issue. Fatigues very quickly, reports he can bend down and lift a heavier object 3x, but then is too fatigued to continue, and needs to rest for an hour. During subjective history, pt also makes offhand comment about dizziness with position changes, reports he gets dizzy for 10-15 seconds when laying in bed or getting up from bed , or when bending down to pick something up. Has been ongoing for a while. Prior Treatments and Tests Head CT: IMPRESSION: Prominent lateral ventricles, which are mildly larger than in 2018. Although not striking , the imaging findings would be compatible with a mild degree of normal pressure hydrocephalus. No prior territorial infarct can be seen. per Yolis Maciel. on 08/29/2023 Treatment Goals Patient/Caregiver Goals Improve gait and balance PT-OP-C Subjective Start: 09/29/23 17:34 Freq: Status: Active Protocol: Document 10/26/23 13:51 SP (Rec: 10/26/23 15:18 SP [id number]) OP-PT Subjective Patient Comments Patient Comments Pt arrived B trek poles to work with in PT, states uses on walks at [place] usually by himself. Saw Neurologist last week completed an EMG BLEs, awaiting results. Neurologist recommended [place] PD meds was told doesn't have PD so referring to Boom Meraz, brain physician for further assessments. PT-OP-D Balance Start: 09/29/23 17:34 Freq: Status: Active Protocol: Document 10/03/23 11:15 DCW (Rec: 10/03/23 12:02 DCW [id number]) Balance Tests Coon Balance Test Coon Balance Test Score 51/56 Coon Balance Assessment Evaluation Sitting to Standing Ability Independent w/out Hands Unsupported Stance Safely- 2 minutes Sitting Unsupported, Feet on Floor Safely- 2 minutes Standing to Sitting Ability Safely, Minimal Hand Use Transfer Ability Safely, Minimal Hand Use Unsupported Stance- Eyes Closed Supervision, 10 seconds Unsupported Stance- Eyes Open Independent, 1 minute Reaching Forward Standing Safely, 5 inches Pick- Up Object From Floor Independent/Safe Look Behind Shoulder - Standing Shifts Weight Well Turning 360 Degrees Turns Bilateral, < 4 secs Unsupported Stance, Alternating Feet on 4 Steps w/Supervision Stair Unsupported Tandem Stance Achieves Tandem Unilateral Leg Stance Lifts Leg/Holds 5-10 secs Total Score Coon Total Score (out of 56 points) 51 Coon Impairment Rating 1 to 19% Impaired (Score 45-55 ) PT-OP-E Functional Tests Start: 09/29/23 17:34 Freq: Status: Active Protocol: Document 10/03/23 11:15 DCW (Rec: 10/03/23 12:02 DCW [id number]) Functional Tests Dynamic Gait Index (DGI) Score 24 DGI Impairment Rating 20 to <40% Impaired (Score 15- 19) PT-OP-G Mobility & Gait Start: 09/29/23 17:53 Freq: Status: Active Protocol: Document 09/29/23 11:20 DCW (Rec: 09/30/23 08:47 DCW [id number]) OP Gait Assessment Gait Gait Assistance Required: Standby Assistance Assistive Devices Assistive Device None Gait Deviations General Gait Pattern Decreased Stride Length, Decreased Feet Clearance, Festinating,Flexed Trunk, Narrow Based Gait PT-OP-M Strength Start: 09/29/23 17:34 Freq: Status: Active Protocol: Document 09/29/23 11:20 DCW (Rec: 09/29/23 17:53 DCW [id number]) Hip Strength Hip Manual Muscle Testing Right Flexion (L2) 4- Good- Extension (S1) 4 Good Abduction 4+ Good+ Adduction 4+ Good+ External Rotation 4+ Good+ Internal Rotation 4+ Good+ Left Flexion (L2) 4- Good- Extension (S1) 4- Good- Abduction 4+ Good+ Adduction 4+ Good+ External Rotation 4+ Good+ Internal Rotation 4+ Good+ Knee Strength Knee Manual Muscle Testing Right Flexion (S2) 4- Good- Extension (L3) 4+ Good+ Left Flexion (S2) 4- Good- Extension (L3) 4+ Good+ PT-OP-O Vestibular Start: 09/29/23 17:34 Freq: Status: Active Protocol: Document 10/03/23 11:15 DCW (Rec: 10/03/23 12:02 DCW [id number]) Vestibular Assessment Positional Testing [place]-Hallpike Negative Left PT-OP-Q Treatments Start: 09/29/23 17:34 Freq: Status: Active Protocol: Document 10/26/23 13:51 SP (Rec: 10/26/23 15:18 SP [id number]) Cardio Equipment Recumbent Stepper (Sci-Fit) Duration (Minutes) 8 Resistance 3.5 Seat Position 14- cued big strides- 1.03 miles Other LEs only 2 min 44-48 RPMs, B UEs 1 min alternate Gym Equipment Shuttle Recovery unilateral squat Details cued toes up heel press Resistance 50# (2 navy) Reps/Time x15 bilateral squat Details cued toes up heel press Resistance 75# (3 navy) Reps/Time x25 Shuttle Balance Red Details WBOS, Staggered (GB) Comments WBOS: wt shift, HTs & vertical , EC 8 sec- CG- 5%A stagger: wt shift, HTs CG- 10% A Therapeutic Exercises Sitting Exercises STS Sitting Exercise Name STS>eccentric chair taps Equipment Used mesh chair, arms across chest Reps/Minutes 5 x3 sets- between transfer distance Comments cued x1 slow descend, good rest reps Therapeutic Activity Therapeutic Activity transfers Name between 2 chairs Reps/Minutes 20 ft 2 laps Comments cued taller posture, larger steps including during pivot turn back step and improved slower descend sit. Gait Training Gait Activity trek poles Device Used B trek poles- lowered trek polesjust above 90 deg elbow bend Level of Assistance S Distance/Duration 170 ft around indoor clinic Treatment Focus sequencing 2 pt gait, increase stride, clearance Comments cued taller posture, longer stride and sequencing 2 pt gait able maintain 50% time. 2 instance shuffle step, ed stop/rest and continue Neuro Re-Education Treatment Balance Activities back stepping Details alternate with tandem walking Equipment //bars PRN Reps/Duration 10 ft 2 lengths Comments cued taller, slower pacing larger steps back tandem walking Details alternate with back stepping Equipment //bars PRN Reps/Duration 10 ft x2 lengths Comments cued wt shift tall into forward leg, LOB x1 but self recovery UE on //bar balance Details NBOS, Stride stance (gait belt ) Equipment large blue foam, //bars Comments 1. HTs vertical/horizontal CG- 5%A, occ cues for TKE 2. balloon volley (stride stance) LOB x3 Mod A recover R lateral and forward when RLE in front position- cued and education for WB RLE TKE and glut drive push trunk back to midline. PT-OP-T Assessment and Plan Start: 09/29/23 17:34 Freq: Status: Active Protocol: Document 10/26/23 13:51 SP (Rec: 10/26/23 15:18 SP [id number]) Physical Therapy Assessment Goals Three Impairment MMT of 4-/5 with bilateral hip and knee flexion Carcass Splitter Goal (LTG) Pt to improve hip and knee flexion strength to at least 4 +/5 in order to improve stability and control during gait. LTG Duration 11/29/23 Two Impairment Positive left [place]-Hallpike Carcass Splitter Goal (LTG) Pt to exhibit negative positional testing bilaterally LTG Duration 11/29/23 One Impairment Pt does not have an appropriate home exercise program Short Term Goal (STG) Pt to be independent and compliant with an appropriate HEP STG Duration 10/30/23 Assessment Summary Assessment Pt continues to deny nor demonstrates signs/symptoms dizziness during balance activities. Tx focused on LE flexibility and strengthening warm up. He improved more stable on shuttle balance today with ability to complete head turns WBOS and stagger stance and brief EC WBOS reduction UE contact as needed . Improved gait training per PT Plan use of trek pole, demonstrated pole advancement clearance more consistant after lowering to fit his height, cues for 2pt gait, maintains 50% of the time. Physical Therapy Plan Frequency and Duration Frequency of Treatment 2x/Week Plan of Care Start Date 09/29/23 Plan of Care End Date 11/29/23 Therapeutic Interventions Therapeutic Interventions Balance Training,Canalithic Repositioning,Home Exercise Program,Manual Therapy, Neuromuscular Re-education, Patient/Caregiver Education, Self-Care/Home Management,Soft Tissue Mobilization, Therapeutic Activities, Therapeutic Exercises, Vestibular Rehabilitation Next Visit Focus/Plan Next Note Type Treatment Note Next Visit Plan Check added more appts between 10/27-11/09. Review HEP should be doing. POC: Balance/gait training, Continue improve sequencing gait with trek poles, sized 10/26/23.
--- NOTE | 2023-10-28 10:32 | PT.OTN ---
Current Diagnoses Polyneuropathy, unspecified (10/28/23) Benign paroxysmal vertigo, left ear (10/28/23) Unsteadiness on feet (10/28/23) Other abnormalities of gait and mobility (10/28/23) Physical Therapy Treatment Note PT-OP-A Visit Information Start: 09/29/23 17:34 Freq: Status: Active Protocol: Document 10/28/23 09:47 SP (Rec: 10/28/23 10:36 SP [id number]) Out-Patient Physical Therapy Visit Information Visit Information Visit Type Treatment Note Visit Start Time 09:47 Visit Stop Time 10:32 Visit Number 7 Number of IT PROGRAMMER ANALYST Visits 2 Evaluation Information Evaluation Date 09/29/23 PT-OP-B Current Condition Start: 09/29/23 17:34 Freq: Status: Active Protocol: Document 09/29/23 11:20 DCW (Rec: 09/29/23 17:53 DCW [id number]) Current Condition History of Current Condition Current Complaints Worsening balance, gait, and positional dizziness History of Current Condition Pt is an 82 year old male presenting to skilled therapy due to worsening gait and imbalance. Pt has developed a shuffling, festinating gait pattern. Reports he was initial put on medications and run through tests for Parkinson's, but did not have any response. Reports his PCP now believes it is hydrocephalus, pt is waiting to get in with a Neurologist down in [place], currently scheduled some time in November. In the meantime, pt notes his balance and gait has been worsening at an increased rate . Reports if he attempts to walk across his house, his steps get smaller and smaller until he is nearly at his destination and will occasionally get stuck right before it, not able to get closer. Initiation of movement is typically not an issue. Fatigues very quickly, reports he can bend down and lift a heavier object 3x, but then is too fatigued to continue, and needs to rest for an hour. During subjective history, pt also makes offhand comment about dizziness with position changes, reports he gets dizzy for 10-15 seconds when laying in bed or getting up from bed , or when bending down to pick something up. Has been ongoing for a while. Prior Treatments and Tests Head CT: IMPRESSION: Prominent lateral ventricles, which are mildly larger than in 2018. Although not striking , the imaging findings would be compatible with a mild degree of normal pressure hydrocephalus. No prior territorial infarct can be seen. per Yolis Maciel on 08/29/2023 Treatment Goals Patient/Caregiver Goals Improve gait and balance PT-OP-C Subjective Start: 09/29/23 17:34 Freq: Status: Active Protocol: Document 10/28/23 09:47 SP (Rec: 10/28/23 10:36 SP [id number]) OP-PT Subjective Patient Comments Patient Comments Pt reports had 3 near falls, caught self with UEs on nearby furniture. He was pretty tired after [employer] shopping, only able to bring 1 bin to curb asked to do the other and drive. Pt shuffling alot coming in to clinic/gym today. PT-OP-D Balance Start: 09/29/23 17:34 Freq: Status: Active Protocol: Document 10/03/23 11:15 DCW (Rec: 10/03/23 12:02 DCW [id number]) Balance Tests Coon Balance Test Coon Balance Test Score 51/56 Coon Balance Assessment Evaluation Sitting to Standing Ability Independent w/out Hands Unsupported Stance Safely- 2 minutes Sitting Unsupported, Feet on Floor Safely- 2 minutes Standing to Sitting Ability Safely, Minimal Hand Use Transfer Ability Safely, Minimal Hand Use Unsupported Stance- Eyes Closed Supervision, 10 seconds Unsupported Stance- Eyes Open Independent, 1 minute Reaching Forward Standing Safely, 5 inches Pick- Up Object From Floor Independent/Safe Look Behind Shoulder - Standing Shifts Weight Well Turning 360 Degrees Turns Bilateral, < 4 secs Unsupported Stance, Alternating Feet on 4 Steps w/Supervision Stair Unsupported Tandem Stance Achieves Tandem Unilateral Leg Stance Lifts Leg/Holds 5-10 secs Total Score Coon Total Score (out of 56 points) 51 Coon Impairment Rating 1 to 19% Impaired (Score 45-55 ) PT-OP-E Functional Tests Start: 09/29/23 17:34 Freq: Status: Active Protocol: Document 10/03/23 11:15 DCW (Rec: 10/03/23 12:02 DCW [id number]) Functional Tests Dynamic Gait Index (DGI) Score 1724 DGI Impairment Rating 20 to <40% Impaired (Score 15- 19) PT-OP-G Mobility & Gait Start: 09/29/23 17:53 Freq: Status: Active Protocol: Document 09/29/23 11:20 DCW (Rec: 09/30/23 08:47 DCW [id number]) OP Gait Assessment Gait Gait Assistance Required: Standby Assistance Assistive Devices Assistive Device None Gait Deviations General Gait Pattern Decreased Stride Length, Decreased Feet Clearance, Festinating,Flexed Trunk, Narrow Based Gait PT-OP-M Strength Start: 09/29/23 17:34 Freq: Status: Active Protocol: Document 09/29/23 11:20 DCW (Rec: 09/29/23 17:53 DCW [id number]) Hip Strength Hip Manual Muscle Testing Right Flexion (L2) 4- Good- Extension (S1) 4 Good Abduction 4+ Good+ Adduction 4+ Good+ External Rotation 4+ Good+ Internal Rotation 4+ Good+ Left Flexion (L2) 4- Good- Extension (S1) 4- Good- Abduction 4+ Good+ Adduction 4+ Good+ External Rotation 4+ Good+ Internal Rotation 4+ Good+ Knee Strength Knee Manual Muscle Testing Right Flexion (S2) 4- Good- Extension (L3) 4+ Good+ Left Flexion (S2) 4- Good- Extension (L3) 4+ Good+ PT-OP-O Vestibular Start: 09/29/23 17:34 Freq: Status: Active Protocol: Document 10/03/23 11:15 DCW (Rec: 10/03/23 12:02 DCW [id number]) Vestibular Assessment Positional Testing [place]-Hallpike Negative Left PT-OP-Q Treatments Start: 09/29/23 17:34 Freq: Status: Active Protocol: Document 10/28/23 09:47 SP (Rec: 10/28/23 10:36 SP [id number]) Cardio Equipment Recumbent Stepper (Sci-Fit) Duration (Minutes) 8 Resistance 3.5 Seat Position 14- cued big strides- 1.01 miles Other LEs only 3 min 40-45 RPMs, B UEs 48 RPMs 1- 2 min alternate Therapeutic Exercises Standing Exercises toe raises Side bilateral Resistance AROM Equipment Used near rail for assist needed Reps/Minutes 2x10 Comments cued not wt shift back hip abd & Ext Standing Exercise Name REviewed AROM home at sink Side bilateral Resistance 3# TB at ankles Equipment Used rail support Reps/Minutes 2x10 each Comments cued tall posture pelvis underneath body Gait Training Gait Activity gait no AD Device Used 0 Distance/Duration hallway x4 laps Treatment Focus increased stride and foot clearance, arm swing Comments cued taller posture, larger arms swing with opp LE, BIG stride feet passing each other . DIscussed and gave HO for BIG scale 1-10 (self awareness and assist corrections BIGGER ). He reported self 2/10 when shuffle stepping no arm swing and 6-7/10 when feels BIG movement IT PROGRAMMER ANALYST noted moderate arm swing/ stride LE just passing each other. Neuro Re-Education Treatment Balance Activities step up/back down Surface 4# leg wt, 6 step Equipment near //bars if needed Reps/Duration 10 reps each side Comments cued wt shift into advanced LE (TKE on L full extend /c pelvis over stance LLE), larger step placement clerance and soft placement up and back down each LE. step taps Equipment 4# leg wt, 6 step, PRN //bar Reps/Duration 2x10 alternate BLEs Comments cued soft tapping up and down, tall /c L TKE during RLE movement for ease of RLE clearance. PT-OP-T Assessment and Plan Start: 09/29/23 17:34 Freq: Status: Active Protocol: Document 10/28/23 09:47 SP (Rec: 10/28/23 10:36 SP [id number]) Physical Therapy Assessment Assessment Summary Assessment Pt little more fatigued today, required UE support during bike endurance. Tx focused on LE strengthening and balance component with resisted step taps/step up/controlled back down, did not need UE support today. He was able to adjust softer stepping (increased stance time stability) and trunk alignment taller over KAREN with cuing. Ed today about BIG Scale hand out 1-10 for awareness of self awareness corrections larger movement while walking, improves with cuing. Physical Therapy Plan Frequency and Duration Frequency of Treatment 2x/Week Plan of Care Start Date 09/29/23 Plan of Care End Date 11/29/23 Therapeutic Interventions Therapeutic Interventions Balance Training,Canalithic Repositioning,Home Exercise Program,Manual Therapy, Neuromuscular Re-education, Patient/Caregiver Education, Self-Care/Home Management,Soft Tissue Mobilization, Therapeutic Activities, Therapeutic Exercises, Vestibular Rehabilitation Next Visit Focus/Plan Next Note Type Treatment Note Next Visit Plan Trial use dowels for assist increase arm swing and stride walking behind pt next tx. POC: Balance/gait training, Continue improve sequencing gait with trek poles.
--- NOTE | 2023-11-02 09:44 | PT.OTN ---
Current Diagnoses Polyneuropathy, unspecified (11/02/23) Benign paroxysmal vertigo, left ear (11/02/23) Unsteadiness on feet (11/02/23) Other abnormalities of gait and mobility (11/02/23) Physical Therapy Treatment Note PT-OP-A Visit Information Start: 09/29/23 17:34 Freq: Status: Active Protocol: Document 11/02/23 09:06 SP (Rec: 11/02/23 09:46 SP [id number]) Out-Patient Physical Therapy Visit Information Visit Information Visit Type Treatment Note Visit Start Time 09:06 Visit Stop Time 09:44 Visit Number 8 Number of SENIOR SUPPORT ENGINEER Visits 3 Evaluation Information Evaluation Date 09/29/23 PT-OP-B Current Condition Start: 09/29/23 17:34 Freq: Status: Active Protocol: Document 09/29/23 11:20 DCW (Rec: 09/29/23 17:53 DCW [id number]) Current Condition History of Current Condition Current Complaints Worsening balance, gait, and positional dizziness History of Current Condition Pt is an 82 year old male presenting to skilled therapy due to worsening gait and imbalance. Pt has developed a shuffling, festinating gait pattern. Reports he was initial put on medications and run through tests for Parkinson's, but did not have any response. Reports his PCP now believes it is hydrocephalus, pt is waiting to get in with a Neurologist down in [place], currently scheduled some time in November. In the meantime, pt notes his balance and gait has been worsening at an increased rate . Reports if he attempts to walk across his house, his steps get smaller and smaller until he is nearly at his destination and will occasionally get stuck right before it, not able to get closer. Initiation of movement is typically not an issue. Fatigues very quickly, reports he can bend down and lift a heavier object 3x, but then is too fatigued to continue, and needs to rest for an hour. During subjective history, pt also makes offhand comment about dizziness with position changes, reports he gets dizzy for 10-15 seconds when laying in bed or getting up from bed , or when bending down to pick something up. Has been ongoing for a while. Prior Treatments and Tests Head CT: IMPRESSION: Prominent lateral ventricles, which are mildly larger than in 2018. Although not striking , the imaging findings would be compatible with a mild degree of normal pressure hydrocephalus. No prior territorial infarct can be seen. per Yolsi Maciel on 08/29/2023 Treatment Goals Patient/Caregiver Goals Improve gait and balance PT-OP-C Subjective Start: 09/29/23 17:34 Freq: Status: Active Protocol: Document 11/02/23 09:06 SP (Rec: 11/02/23 09:46 SP [id number]) OP-PT Subjective Patient Comments Patient Comments Pt reports did ok after last tx. Nothing exciting, no off balance. PT-OP-D Balance Start: 09/29/23 17:34 Freq: Status: Active Protocol: Document 10/03/23 11:15 DCW (Rec: 10/03/23 12:02 DCW [id number]) Balance Tests Coon Balance Test Coon Balance Test Score 51/56 Coon Balance Assessment Evaluation Sitting to Standing Ability Independent w/out Hands Unsupported Stance Safely- 2 minutes Sitting Unsupported, Feet on Floor Safely- 2 minutes Standing to Sitting Ability Safely, Minimal Hand Use Transfer Ability Safely, Minimal Hand Use Unsupported Stance- Eyes Closed Supervision, 10 seconds Unsupported Stance- Eyes Open Independent, 1 minute Reaching Forward Standing Safely, 5 inches Pick- Up Object From Floor Independent/Safe Look Behind Shoulder - Standing Shifts Weight Well Turning 360 Degrees Turns Bilateral, < 4 secs Unsupported Stance, Alternating Feet on 4 Steps w/Supervision Stair Unsupported Tandem Stance Achieves Tandem Unilateral Leg Stance Lifts Leg/Holds 5-10 secs Total Score Coon Total Score (out of 56 points) 51 Coon Impairment Rating 1 to 19% Impaired (Score 45-55 ) PT-OP-E Functional Tests Start: 09/29/23 17:34 Freq: Status: Active Protocol: Document 10/03/23 11:15 DCW (Rec: 10/03/23 12:02 DCW [id number]) Functional Tests Dynamic Gait Index (DGI) Score 1724 DGI Impairment Rating 20 to <40% Impaired (Score 15- 19) PT-OP-G Mobility & Gait Start: 09/29/23 17:53 Freq: Status: Active Protocol: Document 09/29/23 11:20 DCW (Rec: 09/30/23 08:47 DCW [id number]) OP Gait Assessment Gait Gait Assistance Required: Standby Assistance Assistive Devices Assistive Device None Gait Deviations General Gait Pattern Decreased Stride Length, Decreased Feet Clearance, Festinating,Flexed Trunk, Narrow Based Gait PT-OP-M Strength Start: 09/29/23 17:34 Freq: Status: Active Protocol: Document 09/29/23 11:20 DCW (Rec: 09/29/23 17:53 DCW [id number]) Hip Strength Hip Manual Muscle Testing Right Flexion (L2) 4- Good- Extension (S1) 4 Good Abduction 4+ Good+ Adduction 4+ Good+ External Rotation 4+ Good+ Internal Rotation 4+ Good+ Left Flexion (L2) 4- Good- Extension (S1) 4- Good- Abduction 4+ Good+ Adduction 4+ Good+ External Rotation 4+ Good+ Internal Rotation 4+ Good+ Knee Strength Knee Manual Muscle Testing Right Flexion (S2) 4- Good- Extension (L3) 4+ Good+ Left Flexion (S2) 4- Good- Extension (L3) 4+ Good+ PT-OP-O Vestibular Start: 09/29/23 17:34 Freq: Status: Active Protocol: Document 10/03/23 11:15 DCW (Rec: 10/03/23 12:02 DCW [id number]) Vestibular Assessment Positional Testing [place]-Hallpike Negative Left PT-OP-Q Treatments Start: 09/29/23 17:34 Freq: Status: Active Protocol: Document 11/02/23 09:06 SP (Rec: 11/02/23 09:46 SP [id number]) Gym Equipment Shuttle Recovery unilateral squat Details cued toes up heel press Resistance 50# (2 navy) Reps/Time 15 L, 11 R before tired bilateral squat Details cued toes up heel press Resistance 75# (3 [employer]) Reps/Time x25 Therapeutic Exercises Standing Exercises resisted stepping Standing Exercise Name fwd, lateral Equipment Used inside //bars (PRN contact x2) Reps/Minutes 10 ft x2 laps each direction Comments cued maintain WBOS, trailing LE clearance Gait Training Gait Activity stair mgt Description receiprocal stepping Device Used L HR slight hand sliding asc, R HR descend Treatment Focus increased BIG step ascend /c R arm swing, heel clearance descend Comments cued foot fully on step ascend , L heel clearance x2 instance descend dynamic gait Description head turns, vertical- carrying cup water Device Used 0 Level of Assistance close SBA<> CGA Distance/Duration 50 ft hallway x4 laps Treatment Focus maintain bigger stride, ft clearance, Comments cued maintain increase stride and foot clearance bid step heel landing, taller wt shift into front foot. gait no AD Description fwd and pivot turns Device Used 0 Distance/Duration ER hallway x4 laps Treatment Focus increased stride and foot clearance, arm swing Comments max cues increase stride and foot clearance BIG step, heel landing, decreased instance of shuffling by 30% Neuro Re-Education Treatment Balance Activities back stepping Details alternate with tandem walking Equipment //bars PRN Reps/Duration 10 ft 2 lengths Comments cued taller, slower pacing larger steps back tandem walking Details alternate with back stepping Equipment //bars PRN Reps/Duration 10 ft x2 lengths each Comments cued wt shift tall into forward leg, LOB x1 but self recovery UE on //bar PT-OP-T Assessment and Plan Start: 09/29/23 17:34 Freq: Status: Active Protocol: Document 11/02/23 09:06 SP (Rec: 11/02/23 09:46 SP [id number]) Physical Therapy Assessment Goals Three Impairment MMT of 4-/5 with bilateral hip and knee flexion Senior Care Goal (LTG) Pt to improve hip and knee flexion strength to at least 4 +/5 in order to improve stability and control during gait. LTG Duration 11/29/23 Two Impairment Positive left Lynda-Hallpike Sole Dyer Goal (LTG) Pt to exhibit negative positional testing bilaterally LTG Duration 11/29/23 One Impairment Pt does not have an appropriate home exercise program Short Term Goal (STG) Pt to be independent and compliant with an appropriate HEP STG Duration 10/30/23 Assessment Summary Assessment Pt had good endurance today, no seated rest. Improved stride by 30% including pivot turns by end of tx. Intermittent cues for taller posture. Was able to progress resisted side stepping without UE support and light 1 finger or back of hand tandem fwd/ bwd stepping today. Physical Therapy Plan Frequency and Duration Frequency of Treatment 2x/Week Plan of Care Start Date 09/29/23 Plan of Care End Date 11/29/23 Therapeutic Interventions Therapeutic Interventions Balance Training,Canalithic Repositioning,Home Exercise Program,Manual Therapy, Neuromuscular Re-education, Patient/Caregiver Education, Self-Care/Home Management,Soft Tissue Mobilization, Therapeutic Activities, Therapeutic Exercises, Vestibular Rehabilitation Next Visit Focus/Plan Next Note Type Treatment Note Next Visit Plan Trial use dowels for assist increase arm swing and stride walking behind pt next tx. POC: Balance/gait training, Continue improve sequencing gait with trek poles.
--- NOTE | 2023-11-07 10:28 | PT.OTN ---
Current Diagnoses Polyneuropathy, unspecified (11/07/23) Benign paroxysmal vertigo, left ear (11/07/23) Unsteadiness on feet (11/07/23) Other abnormalities of gait and mobility (11/07/23) Physical Therapy Treatment Note PT-OP-A Visit Information Start: 09/29/23 17:34 Freq: Status: Active Protocol: Document 11/07/23 09:53 SP (Rec: 11/07/23 10:32 SP [id number]) Out-Patient Physical Therapy Visit Information Visit Information Visit Type Treatment Note Visit Start Time 09:48 Visit Stop Time 10:28 Visit Number 9 Number of BAG PATCHER Visits 4 Evaluation Information Evaluation Date 09/29/23 PT-OP-B Current Condition Start: 09/29/23 17:34 Freq: Status: Active Protocol: Document 09/29/23 11:20 DCW (Rec: 09/29/23 17:53 DCW [id number]) Current Condition History of Current Condition Current Complaints Worsening balance, gait, and positional dizziness History of Current Condition Pt is an 82 year old male presenting to skilled therapy due to worsening gait and imbalance. Pt has developed a shuffling, festinating gait pattern. Reports he was initial put on medications and run through tests for Parkinson's, but did not have any response. Reports his PCP now believes it is hydrocephalus, pt is waiting to get in with a Neurologist down in [place], currently scheduled some time in November. In the meantime, pt notes his balance and gait has been worsening at an increased rate . Reports if he attempts to walk across his house, his steps get smaller and smaller until he is nearly at his destination and will occasionally get stuck right before it, not able to get closer. Initiation of movement is typically not an issue. Fatigues very quickly, reports he can bend down and lift a heavier object 3x, but then is too fatigued to continue, and needs to rest for an hour. During subjective history, pt also makes offhand comment about dizziness with position changes, reports he gets dizzy for 10-15 seconds when laying in bed or getting up from bed , or when bending down to pick something up. Has been ongoing for a while. Prior Treatments and Tests Head CT: IMPRESSION: Prominent lateral ventricles, which are mildly larger than in 2018. Although not striking , the imaging findings would be compatible with a mild degree of normal pressure hydrocephalus. No prior territorial infarct can be seen. per Yolis Maciel on 08/29/2023 Treatment Goals Patient/Caregiver Goals Improve gait and balance PT-OP-C Subjective Start: 09/29/23 17:34 Freq: Status: Active Protocol: Document 11/07/23 09:53 SP (Rec: 11/07/23 10:32 SP [id number]) OP-PT Subjective Patient Comments Patient Comments Pt reports was worn out after last tx and felt tired the rest of the day. He states even going up a flight stairs wears him out need sit down recover. Pt stated walks portions of [place] with B trek poles but is slower pacing than others, some friends have commented nervous he might fall and unable to get up from ground when knows he could, willing to demonstrate in PT. PT-OP-D Balance Start: 09/29/23 17:34 Freq: Status: Active Protocol: Document 10/03/23 11:15 DCW (Rec: 10/03/23 12:02 DCW [id number]) Balance Tests Coon Balance Test Coon Balance Test Score 51/56 Coon Balance Assessment Evaluation Sitting to Standing Ability Independent w/out Hands Unsupported Stance Safely- 2 minutes Sitting Unsupported, Feet on Floor Safely- 2 minutes Standing to Sitting Ability Safely, Minimal Hand Use Transfer Ability Safely, Minimal Hand Use Unsupported Stance- Eyes Closed Supervision, 10 seconds Unsupported Stance- Eyes Open Independent, 1 minute Reaching Forward Standing Safely, 5 inches Pick- Up Object From Floor Independent/Safe Look Behind Shoulder - Standing Shifts Weight Well Turning 360 Degrees Turns Bilateral, < 4 secs Unsupported Stance, Alternating Feet on 4 Steps w/Supervision Stair Unsupported Tandem Stance Achieves Tandem Unilateral Leg Stance Lifts Leg/Holds 5-10 secs Total Score Coon Total Score (out of 56 points) 51 Coon Impairment Rating 1 to 19% Impaired (Score 45-55 ) PT-OP-E Functional Tests Start: 09/29/23 17:34 Freq: Status: Active Protocol: Document 10/03/23 11:15 DCW (Rec: 10/03/23 12:02 DCW [id number]) Functional Tests Dynamic Gait Index (DGI) Score 1724 DGI Impairment Rating 20 to <40% Impaired (Score 15- 19) PT-OP-G Mobility & Gait Start: 09/29/23 17:53 Freq: Status: Active Protocol: Document 09/29/23 11:20 DCW (Rec: 09/30/23 08:47 DCW [id number]) OP Gait Assessment Gait Gait Assistance Required: Standby Assistance Assistive Devices Assistive Device None Gait Deviations General Gait Pattern Decreased Stride Length, Decreased Feet Clearance, Festinating,Flexed Trunk, Narrow Based Gait PT-OP-M Strength Start: 09/29/23 17:34 Freq: Status: Active Protocol: Document 09/29/23 11:20 DCW (Rec: 09/29/23 17:53 DCW [id number]) Hip Strength Hip Manual Muscle Testing Right Flexion (L2) 4- Good- Extension (S1) 4 Good Abduction 4+ Good+ Adduction 4+ Good+ External Rotation 4+ Good+ Internal Rotation 4+ Good+ Left Flexion (L2) 4- Good- Extension (S1) 4- Good- Abduction 4+ Good+ Adduction 4+ Good+ External Rotation 4+ Good+ Internal Rotation 4+ Good+ Knee Strength Knee Manual Muscle Testing Right Flexion (S2) 4- Good- Extension (L3) 4+ Good+ Left Flexion (S2) 4- Good- Extension (L3) 4+ Good+ PT-OP-O Vestibular Start: 09/29/23 17:34 Freq: Status: Active Protocol: Document 10/03/23 11:15 DCW (Rec: 10/03/23 12:02 DCW [id number]) Vestibular Assessment Positional Testing [place]-Hallpike Negative Left PT-OP-Q Treatments Start: 09/29/23 17:34 Freq: Status: Active Protocol: Document 11/07/23 09:53 SP (Rec: 11/07/23 10:32 SP [id number]) Cardio Equipment Recumbent Stepper (Sci-Fit) Duration (Minutes) 8 Resistance 3.5 Seat Position 13- cued big strides- 1.01 miles Other LEs only 3 min 47-48RPMs, B UEs 48-50 RPMs 1- 2 min alternate Therapeutic Exercises Sitting Exercises STS Sitting Exercise Name STS Equipment Used mesh chair & blue foam Reps/Minutes 10 x3 sets between other activities Comments cued x1 slow descend Standing Exercises resisted stepping Standing Exercise Name lateral Resistance GTB Equipment Used inside //bars, not need contact Reps/Minutes 10 ft x3 laps each direction Comments trailing LE clearance Therapeutic Activity Therapeutic Activity on/off floor Name mat Reps/Minutes 1 Comments pt able complete self no outside support hands on ground, slower ascending getting 2nd foot underneath him but able to do self, no off balance. Gait Training Gait Activity gait no AD Description fwd and pivot turns Device Used 2 dowels assist arm swing Distance/Duration 2 laps around clinin Treatment Focus increased stride and foot clearance, arm swing Comments Utilized dowel BUE /c BAG PATCHER for arms swing facilitation opp LE , min cues for increase stride heel strike Neuro Re-Education Treatment Balance Activities uneven surface Details uneven incline/decline Equipment foam stones, 2 pods, 6 step, mat over- 3 hurdles Comments CGA step taps Equipment 5# leg wt, 8 step, PRN //bar Reps/Duration 2x10 alternate BLEs Comments cued soft tapping up and down, tall /c L TKE during RLE movement for ease of RLE clearance. PT-OP-T Assessment and Plan Start: 09/29/23 17:34 Freq: Status: Active Protocol: Document 11/07/23 09:53 SP (Rec: 11/07/23 10:32 SP [id number]) Physical Therapy Assessment Goals Three Impairment MMT of 4-/5 with bilateral hip and knee flexion [facility] Goal (LTG) Pt to improve hip and knee flexion strength to at least 4 +/5 in order to improve stability and control during gait. LTG Duration 11/29/23 Two Impairment Positive left [place]-Hallpike [facility] Goal (LTG) Pt to exhibit negative positional testing bilaterally LTG Duration 11/29/23 One Impairment Pt does not have an appropriate home exercise program Short Term Goal (STG) Pt to be independent and compliant with an appropriate HEP STG Duration 10/30/23 Assessment Summary Assessment Pt did not require seated rest today during standing activity, improved edurance. Improved increase stride and mamadou with assisted feedback armswing use dowels. Not need UE support during standing balance activities, CGA with no LOB during uneven incline/ decline, cues for wt shift into advanced LE COG over KAREN. Physical Therapy Plan Frequency and Duration Frequency of Treatment 2x/Week Plan of Care Start Date 09/29/23 Plan of Care End Date 11/29/23 Therapeutic Interventions Therapeutic Interventions Balance Training,Canalithic Repositioning,Home Exercise Program,Manual Therapy, Neuromuscular Re-education, Patient/Caregiver Education, Self-Care/Home Management,Soft Tissue Mobilization, Therapeutic Activities, Therapeutic Exercises, Vestibular Rehabilitation Next Visit Focus/Plan Next Note Type Treatment Note Next Visit Plan Update POC soon Continue dynamic gait and balance for improve community mobility. POC: Balance/gait training, Continue improve sequencing gait with trek poles.
--- NOTE | 2023-11-10 11:15 | PT.OTN ---
Current Diagnoses Polyneuropathy, unspecified (11/10/23) Benign paroxysmal vertigo, left ear (11/10/23) Unsteadiness on feet (11/10/23) Other abnormalities of gait and mobility (11/10/23) Physical Therapy Treatment Note PT-OP-A Visit Information Start: 09/29/23 17:34 Freq: Status: Active Protocol: Document 11/10/23 10:33 DCW (Rec: 11/10/23 11:14 DCW [id number]) Out-Patient Physical Therapy Visit Information Visit Information Visit Type Progress Note Visit Start Time 10:33 Visit Stop Time 11:00 Visit Number 10 Number of TANK TRUCK OPERATOR Visits 0 Evaluation Information Evaluation Date 09/29/23 PT-OP-B Current Condition Start: 09/29/23 17:34 Freq: Status: Active Protocol: Document 09/29/23 11:20 DCW (Rec: 09/29/23 17:53 DCW [id number]) Current Condition History of Current Condition Current Complaints Worsening balance, gait, and positional dizziness History of Current Condition Pt is an 82 year old male presenting to skilled therapy due to worsening gait and imbalance. Pt has developed a shuffling, festinating gait pattern. Reports he was initial put on medications and run through tests for Parkinson's, but did not have any response. Reports his PCP now believes it is hydrocephalus, pt is waiting to get in with a Neurologist down in [place], currently scheduled some time in November. In the meantime, pt notes his balance and gait has been worsening at an increased rate . Reports if he attempts to walk across his house, his steps get smaller and smaller until he is nearly at his destination and will occasionally get stuck right before it, not able to get closer. Initiation of movement is typically not an issue. Fatigues very quickly, reports he can bend down and lift a heavier object 3x, but then is too fatigued to continue, and needs to rest for an hour. During subjective history, pt also makes offhand comment about dizziness with position changes, reports he gets dizzy for 10-15 seconds when laying in bed or getting up from bed , or when bending down to pick something up. Has been ongoing for a while. Prior Treatments and Tests Head CT: IMPRESSION: Prominent lateral ventricles, which are mildly larger than in 2018. Although not striking , the imaging findings would be compatible with a mild degree of normal pressure hydrocephalus. No prior territorial infarct can be seen. per Yolis Maciel on 08/29/2023 Treatment Goals Patient/Caregiver Goals Improve gait and balance PT-OP-C Subjective Start: 09/29/23 17:34 Freq: Status: Active Protocol: Document 11/10/23 10:33 DCW (Rec: 11/10/23 11:14 DCW [id number]) OP-PT Subjective Patient Comments Patient Comments I have trouble with a lot of stuff, but I'm too tired to do any of it. PT-OP-D Balance Start: 09/29/23 17:34 Freq: Status: Active Protocol: Document 10/03/23 11:15 DCW (Rec: 10/03/23 12:02 DCW [id number]) Balance Tests Coon Balance Test Coon Balance Test Score 51/56 Coon Balance Assessment Evaluation Sitting to Standing Ability Independent w/out Hands Unsupported Stance Safely- 2 minutes Sitting Unsupported, Feet on Floor Safely- 2 minutes Standing to Sitting Ability Safely, Minimal Hand Use Transfer Ability Safely, Minimal Hand Use Unsupported Stance- Eyes Closed Supervision, 10 seconds Unsupported Stance- Eyes Open Independent, 1 minute Reaching Forward Standing Safely, 5 inches Pick- Up Object From Floor Independent/Safe Look Behind Shoulder - Standing Shifts Weight Well Turning 360 Degrees Turns Bilateral, < 4 secs Unsupported Stance, Alternating Feet on 4 Steps w/Supervision Stair Unsupported Tandem Stance Achieves Tandem Unilateral Leg Stance Lifts Leg/Holds 5-10 secs Total Score Coon Total Score (out of 56 points) 51 Coon Impairment Rating 1 to 19% Impaired (Score 45-55 ) PT-OP-E Functional Tests Start: 09/29/23 17:34 Freq: Status: Active Protocol: Document 10/03/23 11:15 DCW (Rec: 10/03/23 12:02 DCW [id number]) Functional Tests Dynamic Gait Index (DGI) Score DGI Impairment Rating 20 to <40% Impaired (Score 15- 19) PT-OP-G Mobility & Gait Start: 09/29/23 17:53 Freq: Status: Active Protocol: Document 09/29/23 11:20 DCW (Rec: 09/30/23 08:47 DCW [id number]) OP Gait Assessment Gait Gait Assistance Required: Standby Assistance Assistive Devices Assistive Device None Gait Deviations General Gait Pattern Decreased Stride Length, Decreased Feet Clearance, Festinating,Flexed Trunk, Narrow Based Gait PT-OP-M Strength Start: 09/29/23 17:34 Freq: Status: Active Protocol: Document 09/29/23 11:20 DCW (Rec: 09/29/23 17:53 DCW [id number]) Hip Strength Hip Manual Muscle Testing Right Flexion (L2) 4- Good- Extension (S1) 4 Good Abduction 4+ Good+ Adduction 4+ Good+ External Rotation 4+ Good+ Internal Rotation 4+ Good+ Left Flexion (L2) 4- Good- Extension (S1) 4- Good- Abduction 4+ Good+ Adduction 4+ Good+ External Rotation 4+ Good+ Internal Rotation 4+ Good+ Knee Strength Knee Manual Muscle Testing Right Flexion (S2) 4- Good- Extension (L3) 4+ Good+ Left Flexion (S2) 4- Good- Extension (L3) 4+ Good+ PT-OP-O Vestibular Start: 09/29/23 17:34 Freq: Status: Active Protocol: Document 10/03/23 11:15 DCW (Rec: 10/03/23 12:02 DCW [id number]) Vestibular Assessment Positional Testing [place]-Hallpike Negative Left PT-OP-Q Treatments Start: 09/29/23 17:34 Freq: Status: Active Protocol: Document 11/10/23 10:33 DCW (Rec: 11/10/23 11:14 DCW [id number]) Manual Therapy Treatment Other Other Manual Treatments Positional testing - Hallpike, Roll test Canalithic Repositioning BPPV Treatment Gufoni Affected Canal(s) Left Horizontal Reps x1 Alo Affected Canal(s) Left Posterior Reps x1 Comments Modified Alo PT-OP-T Assessment and Plan Start: 09/29/23 17:34 Freq: Status: Active Protocol: Document 11/10/23 10:33 DCW (Rec: 11/10/23 11:14 DCW [id number]) Physical Therapy Assessment Goals Three Impairment MMT of 4-/5 with bilateral hip and knee flexion [facility] Goal (LTG) Pt to improve hip and knee flexion strength to at least 4 +/5 in order to improve stability and control during gait. LTG Duration 11/29/23 Two Impairment Positive left [place]-Hallpike [facility] Goal (LTG) Pt to exhibit negative positional testing bilaterally 11/10/23 - Mildly positive LTG Duration 11/29/23 One Impairment Pt does not have an appropriate home exercise program Short Term Goal (STG) Pt to be independent and compliant with an appropriate HEP STG Duration 10/30/23 Progress Towards Goals Progress Towards Goals Slow Progress due to Medical Issues Assessment Summary Assessment Positional testing performed today. Mildly positive left Hallpike, performed modified L Alo. Upon sitting, pt had brief period of dizziness with horizontal nystagmus. May be a sign of conversion to horizontal canal BPPV, may be sign of potential central disorder. Performed a left Gufoni maneuver in case symptoms were from horizontal canal BPPV. No further symptoms noted at that time. Physical Therapy Plan Frequency and Duration Frequency of Treatment 2x/Week Plan of Care Start Date 09/29/23 Plan of Care End Date 11/29/23 Therapeutic Interventions Therapeutic Interventions Balance Training,Canalithic Repositioning,Home Exercise Program,Manual Therapy, Neuromuscular Re-education, Patient/Caregiver Education, Self-Care/Home Management,Soft Tissue Mobilization, Therapeutic Activities, Therapeutic Exercises, Vestibular Rehabilitation Next Visit Focus/Plan Next Note Type Treatment Note Next Visit Plan Continue dynamic gait and balance for improve community mobility. POC: Balance/gait training, Continue improve sequencing gait with trek poles.
--- NOTE | 2023-11-14 12:01 | PT.OTN ---
Current Diagnoses Polyneuropathy, unspecified (11/14/23) Benign paroxysmal vertigo, left ear (11/14/23) Unsteadiness on feet (11/14/23) Other abnormalities of gait and mobility (11/14/23) Physical Therapy Treatment Note PT-OP-A Visit Information Start: 09/29/23 17:34 Freq: Status: Active Protocol: Document 11/14/23 11:15 DCW (Rec: 11/14/23 12:00 DCW [id number]) Out-Patient Physical Therapy Visit Information Visit Information Visit Type Treatment Note Visit Start Time 11:15 Visit Stop Time 12:00 Visit Number 11 Number of COOKY MACHINE OPERATOR Visits 0 Evaluation Information Evaluation Date 09/29/23 PT-OP-B Current Condition Start: 09/29/23 17:34 Freq: Status: Active Protocol: Document 09/29/23 11:20 DCW (Rec: 09/29/23 17:53 DCW [id number]) Current Condition History of Current Condition Current Complaints Worsening balance, gait, and positional dizziness History of Current Condition Pt is an 82 year old male presenting to skilled therapy due to worsening gait and imbalance. Pt has developed a shuffling, festinating gait pattern. Reports he was initial put on medications and run through tests for Parkinson's, but did not have any response. Reports his PCP now believes it is hydrocephalus, pt is waiting to get in with a Neurologist down in [place], currently scheduled some time in November. In the meantime, pt notes his balance and gait has been worsening at an increased rate . Reports if he attempts to walk across his house, his steps get smaller and smaller until he is nearly at his destination and will occasionally get stuck right before it, not able to get closer. Initiation of movement is typically not an issue. Fatigues very quickly, reports he can bend down and lift a heavier object 3x, but then is too fatigued to continue, and needs to rest for an hour. During subjective history, pt also makes offhand comment about dizziness with position changes, reports he gets dizzy for 10-15 seconds when laying in bed or getting up from bed , or when bending down to pick something up. Has been ongoing for a while. Prior Treatments and Tests Head CT: IMPRESSION: Prominent lateral ventricles, which are mildly larger than in 2018. Although not striking , the imaging findings would be compatible with a mild degree of normal pressure hydrocephalus. No prior territorial infarct can be seen. per Yolis Maciel. on 08/29/2023 Treatment Goals Patient/Caregiver Goals Improve gait and balance PT-OP-C Subjective Start: 09/29/23 17:34 Freq: Status: Active Protocol: Document 11/14/23 11:15 DCW (Rec: 11/14/23 12:00 DCW [id number]) OP-PT Subjective Patient Comments Patient Comments Pt notes he has been having an increase in near falls, this morning walking toward his door, turned to look behind him, and fell against the door , didn't actually go down to the floor. Has his appointment down in [place] with the hydrocephalus specialist PT-OP-D Balance Start: 09/29/23 17:34 Freq: Status: Active Protocol: Document 10/03/23 11:15 DCW (Rec: 10/03/23 12:02 DCW [id number]) Balance Tests Coon Balance Test Coon Balance Test Score 51/56 Coon Balance Assessment Evaluation Sitting to Standing Ability Independent w/out Hands Unsupported Stance Safely- 2 minutes Sitting Unsupported, Feet on Floor Safely- 2 minutes Standing to Sitting Ability Safely, Minimal Hand Use Transfer Ability Safely, Minimal Hand Use Unsupported Stance- Eyes Closed Supervision, 10 seconds Unsupported Stance- Eyes Open Independent, 1 minute Reaching Forward Standing Safely, 5 inches Pick- Up Object From Floor Independent/Safe Look Behind Shoulder - Standing Shifts Weight Well Turning 360 Degrees Turns Bilateral, < 4 secs Unsupported Stance, Alternating Feet on 4 Steps w/Supervision Stair Unsupported Tandem Stance Achieves Tandem Unilateral Leg Stance Lifts Leg/Holds 5-10 secs Total Score Coon Total Score (out of 56 points) 51 Coon Impairment Rating 1 to 19% Impaired (Score 45-55 ) PT-OP-E Functional Tests Start: 09/29/23 17:34 Freq: Status: Active Protocol: Document 10/03/23 11:15 DCW (Rec: 10/03/23 12:02 DCW [id number]) Functional Tests Dynamic Gait Index (DGI) Score DGI Impairment Rating 20 to <40% Impaired (Score 15- 19) PT-OP-G Mobility & Gait Start: 09/29/23 17:53 Freq: Status: Active Protocol: Document 09/29/23 11:20 DCW (Rec: 09/30/23 08:47 DCW [id number]) OP Gait Assessment Gait Gait Assistance Required: Standby Assistance Assistive Devices Assistive Device None Gait Deviations General Gait Pattern Decreased Stride Length, Decreased Feet Clearance, Festinating,Flexed Trunk, Narrow Based Gait PT-OP-M Strength Start: 09/29/23 17:34 Freq: Status: Active Protocol: Document 09/29/23 11:20 DCW (Rec: 09/29/23 17:53 DCW [id number]) Hip Strength Hip Manual Muscle Testing Right Flexion (L2) 4- Good- Extension (S1) 4 Good Abduction 4+ Good+ Adduction 4+ Good+ External Rotation 4+ Good+ Internal Rotation 4+ Good+ Left Flexion (L2) 4- Good- Extension (S1) 4- Good- Abduction 4+ Good+ Adduction 4+ Good+ External Rotation 4+ Good+ Internal Rotation 4+ Good+ Knee Strength Knee Manual Muscle Testing Right Flexion (S2) 4- Good- Extension (L3) 4+ Good+ Left Flexion (S2) 4- Good- Extension (L3) 4+ Good+ PT-OP-O Vestibular Start: 09/29/23 17:34 Freq: Status: Active Protocol: Document 10/03/23 11:15 DCW (Rec: 10/03/23 12:02 DCW [id number]) Vestibular Assessment Positional Testing Lynda-Hallpike Negative Left PT-OP-Q Treatments Start: 09/29/23 17:34 Freq: Status: Active Protocol: Document 11/14/23 11:15 DCW (Rec: 11/14/23 12:00 DCW [id number]) Cardio Equipment Recumbent Elliptical (Biodex) Duration (Minutes) 6 Resistance 5 Seat Position 12 Gym Equipment Shuttle Balance Red Details WBOS, Staggered Comments WBOS: EO/EC, Horizontal/ Vertical HTs Therapeutic Exercises Other Exercises Toe Taps Other Exercise Name Toe Taps Side bilateral Resistance 4# Equipment Used 6 step Neuro Re-Education Treatment Balance Activities uneven surface Details Uneven blue pad foam Details Staggered Stance Surface AirEx Comments EO/EC, Head Turns PT-OP-T Assessment and Plan Start: 09/29/23 17:34 Freq: Status: Active Protocol: Document 11/14/23 11:15 DCW (Rec: 11/14/23 12:00 [facility] [id number]) Physical Therapy Assessment Impairments Impairments Activity Tolerance,Balance, Functional Activities, Functional Mobility,Gait,ROM, Soft Tissue Mobility,Strength, Vestibular Goals Three Impairment MMT of 4-/5 with bilateral hip and knee flexion Jail Goal (LTG) Pt to improve hip and knee flexion strength to at least 4 +/5 in order to improve stability and control during gait. LTG Duration 11/29/23 Two Impairment Positive left Lynda-Hallpike Food Demonstrator Goal (LTG) Pt to exhibit negative positional testing bilaterally 11/10/23 - Mildly positive LTG Duration 11/29/23 One Impairment Pt does not have an appropriate home exercise program Short Term Goal (STG) Pt to be independent and compliant with an appropriate HEP STG Duration 10/30/23 Assessment Summary Assessment Good response to balance challenges today, still does struggle more with uneven surfaces and head turns. Continue to work on static/ dynamic balance challenges Physical Therapy Plan Frequency and Duration Frequency of Treatment 2x/Week Plan of Care Start Date 09/29/23 Plan of Care End Date 11/29/23 Therapeutic Interventions Therapeutic Interventions Balance Training,Canalithic Repositioning,Home Exercise Program,Manual Therapy, Neuromuscular Re-education, Patient/Caregiver Education, Self-Care/Home Management,Soft Tissue Mobilization, Therapeutic Activities, Therapeutic Exercises, Vestibular Rehabilitation Next Visit Focus/Plan Next Note Type Treatment Note Next Visit Plan Continue dynamic gait and balance for improve community mobility. POC: Balance/gait training, Continue improve sequencing gait with trek poles.
--- NOTE | 2023-11-17 14:28 | PT.OTN ---
Current Diagnoses Polyneuropathy, unspecified (11/17/23) Benign paroxysmal vertigo, left ear (11/17/23) Unsteadiness on feet (11/17/23) Other abnormalities of gait and mobility (11/17/23) Physical Therapy Treatment Note PT-OP-A Visit Information Start: 09/29/23 17:34 Freq: Status: Active Protocol: Document 11/17/23 13:45 DCW (Rec: 11/17/23 14:28 DCW [id number]) Out-Patient Physical Therapy Visit Information Visit Information Visit Type Treatment Note Visit Start Time 13:45 Visit Stop Time 14:30 Visit Number 12 Number of TABLE MACHINE OPERATOR Visits 0 Evaluation Information Evaluation Date 09/29/23 PT-OP-B Current Condition Start: 09/29/23 17:34 Freq: Status: Active Protocol: Document 09/29/23 11:20 DCW (Rec: 09/29/23 17:53 DCW [id number]) Current Condition History of Current Condition Current Complaints Worsening balance, gait, and positional dizziness History of Current Condition Pt is an 82 year old male presenting to skilled therapy due to worsening gait and imbalance. Pt has developed a shuffling, festinating gait pattern. Reports he was initial put on medications and run through tests for Parkinson's, but did not have any response. Reports his PCP now believes it is hydrocephalus, pt is waiting to get in with a Neurologist down in [place], currently scheduled some time in November. In the meantime, pt notes his balance and gait has been worsening at an increased rate . Reports if he attempts to walk across his house, his steps get smaller and smaller until he is nearly at his destination and will occasionally get stuck right before it, not able to get closer. Initiation of movement is typically not an issue. Fatigues very quickly, reports he can bend down and lift a heavier object 3x, but then is too fatigued to continue, and needs to rest for an hour. During subjective history, pt also makes offhand comment about dizziness with position changes, reports he gets dizzy for 10-15 seconds when laying in bed or getting up from bed , or when bending down to pick something up. Has been ongoing for a while. Prior Treatments and Tests Head CT: IMPRESSION: Prominent lateral ventricles, which are mildly larger than in 2018. Although not striking , the imaging findings would be compatible with a mild degree of normal pressure hydrocephalus. No prior territorial infarct can be seen. per Yolis Maciel on 08/29/2023 Treatment Goals Patient/Caregiver Goals Improve gait and balance PT-OP-C Subjective Start: 09/29/23 17:34 Freq: Status: Active Protocol: Document 11/17/23 13:45 DCW (Rec: 11/17/23 14:28 DCW [id number]) OP-PT Subjective Patient Comments Patient Comments Notes he had an of positional dizziness earlier today. Also admits that he just seems to be declining functionally, feeling more fatigued and off balance. PT-OP-D Balance Start: 09/29/23 17:34 Freq: Status: Active Protocol: Document 10/03/23 11:15 DCW (Rec: 10/03/23 12:02 DCW [id number]) Balance Tests Coon Balance Test Coon Balance Test Score 51/56 Coon Balance Assessment Evaluation Sitting to Standing Ability Independent w/out Hands Unsupported Stance Safely- 2 minutes Sitting Unsupported, Feet on Floor Safely- 2 minutes Standing to Sitting Ability Safely, Minimal Hand Use Transfer Ability Safely, Minimal Hand Use Unsupported Stance- Eyes Closed Supervision, 10 seconds Unsupported Stance- Eyes Open Independent, 1 minute Reaching Forward Standing Safely, 5 inches Pick- Up Object From Floor Independent/Safe Look Behind Shoulder - Standing Shifts Weight Well Turning 360 Degrees Turns Bilateral, < 4 secs Unsupported Stance, Alternating Feet on 4 Steps w/Supervision Stair Unsupported Tandem Stance Achieves Tandem Unilateral Leg Stance Lifts Leg/Holds 5-10 secs Total Score Coon Total Score (out of 56 points) 51 Coon Impairment Rating 1 to 19% Impaired (Score 45-55 ) PT-OP-E Functional Tests Start: 09/29/23 17:34 Freq: Status: Active Protocol: Document 10/03/23 11:15 DCW (Rec: 10/03/23 12:02 DCW [id number]) Functional Tests Dynamic Gait Index (DGI) Score 1724 DGI Impairment Rating 20 to <40% Impaired (Score 15- 19) PT-OP-G Mobility & Gait Start: 09/29/23 17:53 Freq: Status: Active Protocol: Document 09/29/23 11:20 DCW (Rec: 09/30/23 08:47 DCW [id number]) OP Gait Assessment Gait Gait Assistance Required: Standby Assistance Assistive Devices Assistive Device None Gait Deviations General Gait Pattern Decreased Stride Length, Decreased Feet Clearance, Festinating,Flexed Trunk, Narrow Based Gait PT-OP-M Strength Start: 09/29/23 17:34 Freq: Status: Active Protocol: Document 09/29/23 11:20 DCW (Rec: 09/29/23 17:53 DCW [id number]) Hip Strength Hip Manual Muscle Testing Right Flexion (L2) 4- Good- Extension (S1) 4 Good Abduction 4+ Good+ Adduction 4+ Good+ External Rotation 4+ Good+ Internal Rotation 4+ Good+ Left Flexion (L2) 4- Good- Extension (S1) 4- Good- Abduction 4+ Good+ Adduction 4+ Good+ External Rotation 4+ Good+ Internal Rotation 4+ Good+ Knee Strength Knee Manual Muscle Testing Right Flexion (S2) 4- Good- Extension (L3) 4+ Good+ Left Flexion (S2) 4- Good- Extension (L3) 4+ Good+ PT-OP-O Vestibular Start: 09/29/23 17:34 Freq: Status: Active Protocol: Document 10/03/23 11:15 DCW (Rec: 10/03/23 12:02 DCW [id number]) Vestibular Assessment Positional Testing Lynda-Hallpike Negative Left PT-OP-Q Treatments Start: 09/29/23 17:34 Freq: Status: Active Protocol: Document 11/17/23 13:45 DCW (Rec: 11/17/23 14:28 DCW [id number]) Cardio Equipment Recumbent Elliptical (Biodex) Duration (Minutes) 6 Resistance 5 Seat Position 12 Gym Equipment Shuttle Balance Red Details WBOS, Staggered Comments WBOS: EO/EC, Horizontal/ Vertical HTs Manual Therapy Treatment Other Other Manual Treatments Positional testing - Hallpike, Roll test Neuro Re-Education Treatment Balance Activities hurdles Surface floor Equipment 6 hurdles inside //bars Comments cued heel clearance leading and trailing toe, wt shift into advanced LE, close SBA /c GB Coordination Activities Toe-taps Comments Coordination of toe-taps on FitBall Pods PT-OP-T Assessment and Plan Start: 09/29/23 17:34 Freq: Status: Active Protocol: Document 11/17/23 13:45 DCW (Rec: 11/17/23 14:28 [facility] [id number]) Physical Therapy Assessment Impairments Impairments Activity Tolerance,Balance, Functional Activities, Functional Mobility,Gait,ROM, Soft Tissue Mobility,Strength, Vestibular Goals Three Impairment MMT of 4-/5 with bilateral hip and knee flexion Information Developer Goal (LTG) Pt to improve hip and knee flexion strength to at least 4 +/5 in order to improve stability and control during gait. LTG Duration 11/29/23 Two Impairment Positive left Lynda-Hallpike Fpc Goal (LTG) Pt to exhibit negative positional testing bilaterally 11/10/23 - Mildly positive LTG Duration 11/29/23 One Impairment Pt does not have an appropriate home exercise program Short Term Goal (STG) Pt to be independent and compliant with an appropriate HEP STG Duration 10/30/23 Assessment Summary Assessment Due to subjective complaints suggestive of BPPV recurrence, performed positional testing. Pt negative at this time Continue to test as indicated. Otherwise, worked on balance, gait/stride length, and coordination. Physical Therapy Plan Frequency and Duration Frequency of Treatment 2x/Week Plan of Care Start Date 09/29/23 Plan of Care End Date 11/29/23 Therapeutic Interventions Therapeutic Interventions Balance Training,Canalithic Repositioning,Home Exercise Program,Manual Therapy, Neuromuscular Re-education, Patient/Caregiver Education, Self-Care/Home Management,Soft Tissue Mobilization, Therapeutic Activities, Therapeutic Exercises, Vestibular Rehabilitation Next Visit Focus/Plan Next Note Type Treatment Note Next Visit Plan Continue dynamic gait and balance for improve community mobility. POC: Balance/gait training, Continue improve sequencing gait with trek poles.
--- NOTE | 2023-11-30 12:47 | PT.OTN ---
Current Diagnoses Polyneuropathy, unspecified (11/30/23) Benign paroxysmal vertigo, left ear (11/30/23) Unsteadiness on feet (11/30/23) Other abnormalities of gait and mobility (11/30/23) Physical Therapy Treatment Note PT-OP-A Visit Information Start: 09/29/23 17:34 Freq: Status: Active Protocol: Document 11/30/23 12:00 DCW (Rec: 11/30/23 12:46 DCW [id number]) Out-Patient Physical Therapy Visit Information Visit Information Visit Type Treatment Note Visit Start Time 12:00 Visit Stop Time 12:45 Visit Number 13 Number of HOME VISITOR HOME BASE HEAD START Visits 0 Evaluation Information Evaluation Date 09/29/23 PT-OP-B Current Condition Start: 09/29/23 17:34 Freq: Status: Active Protocol: Document 09/29/23 11:20 DCW (Rec: 09/29/23 17:53 DCW [id number]) Current Condition History of Current Condition Current Complaints Worsening balance, gait, and positional dizziness History of Current Condition Pt is an 82 year old male presenting to skilled therapy due to worsening gait and imbalance. Pt has developed a shuffling, festinating gait pattern. Reports he was initial put on medications and run through tests for Parkinson's, but did not have any response. Reports his PCP now believes it is hydrocephalus, pt is waiting to get in with a Neurologist down in [place], currently scheduled some time in November. In the meantime, pt notes his balance and gait has been worsening at an increased rate . Reports if he attempts to walk across his house, his steps get smaller and smaller until he is nearly at his destination and will occasionally get stuck right before it, not able to get closer. Initiation of movement is typically not an issue. Fatigues very quickly, reports he can bend down and lift a heavier object 3x, but then is too fatigued to continue, and needs to rest for an hour. During subjective history, pt also makes offhand comment about dizziness with position changes, reports he gets dizzy for 10-15 seconds when laying in bed or getting up from bed , or when bending down to pick something up. Has been ongoing for a while. Prior Treatments and Tests Head CT: IMPRESSION: Prominent lateral ventricles, which are mildly larger than in 2018. Although not striking , the imaging findings would be compatible with a mild degree of normal pressure hydrocephalus. No prior territorial infarct can be seen. per Yolis Maciel on 08/29/2023 Treatment Goals Patient/Caregiver Goals Improve gait and balance PT-OP-C Subjective Start: 09/29/23 17:34 Freq: Status: Active Protocol: Document 11/30/23 12:00 DCW (Rec: 11/30/23 12:46 DCW [id number]) OP-PT Subjective Patient Comments Patient Comments Comes in today following appointment with hydrocephalus specialist yesterday. Pt reports it was good news, bad news, but I'm still pretty happy with it. Feeling pretty confident that he does not have Parkinson's, but still more testing needs to be performed. Continue to lean toward hydrocephalus. Kind of in a holding pattern until more testing is performed. Looking to continue PT until he gets more answers. PT-OP-D Balance Start: 09/29/23 17:34 Freq: Status: Active Protocol: Document 10/03/23 11:15 DCW (Rec: 10/03/23 12:02 DCW [id number]) Balance Tests Coon Balance Test Coon Balance Test Score 51/56 Coon Balance Assessment Evaluation Sitting to Standing Ability Independent w/out Hands Unsupported Stance Safely- 2 minutes Sitting Unsupported, Feet on Floor Safely- 2 minutes Standing to Sitting Ability Safely, Minimal Hand Use Transfer Ability Safely, Minimal Hand Use Unsupported Stance- Eyes Closed Supervision, 10 seconds Unsupported Stance- Eyes Open Independent, 1 minute Reaching Forward Standing Safely, 5 inches Pick- Up Object From Floor Independent/Safe Look Behind Shoulder - Standing Shifts Weight Well Turning 360 Degrees Turns Bilateral, < 4 secs Unsupported Stance, Alternating Feet on 4 Steps w/Supervision Stair Unsupported Tandem Stance Achieves Tandem Unilateral Leg Stance Lifts Leg/Holds 5-10 secs Total Score Coon Total Score (out of 56 points) 51 Coon Impairment Rating 1 to 19% Impaired (Score 45-55 ) PT-OP-E Functional Tests Start: 09/29/23 17:34 Freq: Status: Active Protocol: Document 11/30/23 12:00 DCW (Rec: 11/30/23 12:47 DCW [id number]) Functional Tests Dynamic Gait Index (DGI) Score 19/24 DGI Impairment Rating 20 to <40% Impaired (Score 15- 19) PT-OP-G Mobility & Gait Start: 09/29/23 17:53 Freq: Status: Active Protocol: Document 09/29/23 11:20 DCW (Rec: 09/30/23 08:47 DCW [id number]) OP Gait Assessment Gait Gait Assistance Required: Standby Assistance Assistive Devices Assistive Device None Gait Deviations General Gait Pattern Decreased Stride Length, Decreased Feet Clearance, Festinating,Flexed Trunk, Narrow Based Gait PT-OP-M Strength Start: 09/29/23 17:34 Freq: Status: Active Protocol: Document 09/29/23 11:20 DCW (Rec: 09/29/23 17:53 DCW [id number]) Hip Strength Hip Manual Muscle Testing Right Flexion (L2) 4- Good- Extension (S1) 4 Good Abduction 4+ Good+ Adduction 4+ Good+ External Rotation 4+ Good+ Internal Rotation 4+ Good+ Left Flexion (L2) 4- Good- Extension (S1) 4- Good- Abduction 4+ Good+ Adduction 4+ Good+ External Rotation 4+ Good+ Internal Rotation 4+ Good+ Knee Strength Knee Manual Muscle Testing Right Flexion (S2) 4- Good- Extension (L3) 4+ Good+ Left Flexion (S2) 4- Good- Extension (L3) 4+ Good+ PT-OP-O Vestibular Start: 09/29/23 17:34 Freq: Status: Active Protocol: Document 10/03/23 11:15 DCW (Rec: 10/03/23 12:02 DCW [id number]) Vestibular Assessment Positional Testing [place]-Hallpike Negative Left PT-OP-Q Treatments Start: 09/29/23 17:34 Freq: Status: Active Protocol: Document 11/30/23 12:00 DCW (Rec: 11/30/23 12:46 DCW [id number]) Gym Equipment Shuttle Balance Red Details WBOS, Staggered Comments WBOS: EO/EC, Horizontal/ Vertical HTs Neuro Re-Education Treatment Balance Activities hurdles Details Hurdles/Foam foam Details Staggered Stance Surface AirEx Comments EO/EC, Head Turns balance Comments DGI PT-OP-T Assessment and Plan Start: 09/29/23 17:34 Freq: Status: Active Protocol: Document 11/30/23 12:00 DCW (Rec: 11/30/23 12:46 DCW [id number]) Physical Therapy Assessment Impairments Impairments Activity Tolerance,Balance, Functional Activities, Functional Mobility,Gait,ROM, Soft Tissue Mobility,Strength, Vestibular Goals Three Impairment MMT of 4-/5 with bilateral hip and knee flexion Care Home Goal (LTG) Pt to improve hip and knee flexion strength to at least 4 +/5 in order to improve stability and control during gait. LTG Duration 01/31/24 Two Impairment Positive left Lynda-Hallpike Fluid Pump Operator Goal (LTG) Pt to exhibit negative positional testing bilaterally 11/10/23 - Mildly positive LTG Duration 01/31/24 One Impairment Pt does not have an appropriate home exercise program Short Term Goal (STG) Pt to be independent and compliant with an appropriate HEP STG Duration 10/30/23 Assessment Summary Assessment Pt showing some mild improvements in balance, DGI score increased from -> . Pt will likely continue to benefit from PT in order to limits effects from potential hydrocephalus until further testing and possible treatment can be performed. Physical Therapy Plan Frequency and Duration Frequency of Treatment 2x/Week Plan of Care Start Date 11/30/23 Plan of Care End Date 01/31/24 Therapeutic Interventions Therapeutic Interventions Balance Training,Canalithic Repositioning,Home Exercise Program,Manual Therapy, Neuromuscular Re-education, Patient/Caregiver Education, Self-Care/Home Management,Soft Tissue Mobilization, Therapeutic Activities, Therapeutic Exercises, Vestibular Rehabilitation Next Visit Focus/Plan Next Note Type Treatment Note Next Visit Plan Continue dynamic gait and balance for improve community mobility. POC: Balance/gait training, Continue improve sequencing gait with trek poles.
--- NOTE | 2023-11-30 12:47 | PT.OPPOC ---
Physical, Occupational & Speech Therapy At [facility] Current Diagnoses Polyneuropathy, unspecified (11/30/23) Benign paroxysmal vertigo, left ear (11/30/23) Unsteadiness on feet (11/30/23) Other abnormalities of gait and mobility (11/30/23) Visit Care Team Role Provider Type Donnell Mascorro MD Attending Provider Physician Family Provider Primary Care Provider Referring Provider Specialty: Internal Medicine Address: [address] [place] [address], [facility] Email: [email or web address] Plan Of Care PT-OP-T Assessment and Plan Start: 09/29/23 17:34 Freq: Status: Active Protocol: Document 11/30/23 12:00 DCW (Rec: 11/30/23 12:46 DCW [id number]) Physical Therapy Assessment Impairments Impairments Activity Tolerance,Balance, Functional Activities, Functional Mobility,Gait,ROM, Soft Tissue Mobility,Strength, Vestibular Goals Three Impairment MMT of 4-/5 with bilateral hip and knee flexion Mcfp Goal (LTG) Pt to improve hip and knee flexion strength to at least 4 +/5 in order to improve stability and control during gait. LTG Duration 01/31/24 Two Impairment Positive left Lynda-Hallpike Ios Architect Goal (LTG) Pt to exhibit negative positional testing bilaterally 11/10/23 - Mildly positive LTG Duration 01/31/24 One Impairment Pt does not have an appropriate home exercise program Short Term Goal (STG) Pt to be independent and compliant with an appropriate HEP STG Duration 10/30/23 Assessment Summary Assessment Pt showing some mild improvements in balance, DGI score increased from -> . Pt will likely continue to benefit from PT in order to limits effects from potential hydrocephalus until further testing and possible treatment can be performed. Physical Therapy Plan Frequency and Duration Frequency of Treatment 2x/Week Plan of Care Start Date 11/30/23 Plan of Care End Date 01/31/24 Therapeutic Interventions Therapeutic Interventions Balance Training,Canalithic Repositioning,Home Exercise Program,Manual Therapy, Neuromuscular Re-education, Patient/Caregiver Education, Self-Care/Home Management,Soft Tissue Mobilization, Therapeutic Activities, Therapeutic Exercises, Vestibular Rehabilitation Next Visit Focus/Plan Next Note Type Treatment Note Next Visit Plan Continue dynamic gait and balance for improve community mobility. POC: Balance/gait training, Continue improve sequencing gait with trek poles. Plan of Care Dates Plan of Care Start Date 11/30/23 Plan of Care End Date 01/31/24 Electronically Signed by: Jarrod Chiu, PT 11/30/23 [id number] If you are in agreement with this Plan of Care, please return a signed and dated copy. I have reviewed this Plan of Care and certify that the skilled therapy services above are required to meet the patient?s needs. Physician Signature Date Printed Name and Credentials Clinical Instructor Signature Printed Name and Credentials
--- NOTE | 2023-12-02 16:03 | PT.OTN ---
Current Diagnoses Polyneuropathy, unspecified (12/02/23) Benign paroxysmal vertigo, left ear (12/02/23) Unsteadiness on feet (12/02/23) Other abnormalities of gait and mobility (12/02/23) Physical Therapy Treatment Note PT-OP-A Visit Information Start: 09/29/23 17:34 Freq: Status: Active Protocol: Document 12/02/23 15:15 DCW (Rec: 12/02/23 16:03 DCW [id number]) Out-Patient Physical Therapy Visit Information Visit Information Visit Type Treatment Note Visit Start Time 15:15 Visit Stop Time 16:00 Visit Number 14 Number of TRIMMING CASER Visits 0 Evaluation Information Evaluation Date 09/29/23 PT-OP-B Current Condition Start: 09/29/23 17:34 Freq: Status: Active Protocol: Document 09/29/23 11:20 DCW (Rec: 09/29/23 17:53 DCW [id number]) Current Condition History of Current Condition Current Complaints Worsening balance, gait, and positional dizziness History of Current Condition Pt is an 82 year old male presenting to skilled therapy due to worsening gait and imbalance. Pt has developed a shuffling, festinating gait pattern. Reports he was initial put on medications and run through tests for Parkinson's, but did not have any response. Reports his PCP now believes it is hydrocephalus, pt is waiting to get in with a Neurologist down in [place], currently scheduled some time in November. In the meantime, pt notes his balance and gait has been worsening at an increased rate . Reports if he attempts to walk across his house, his steps get smaller and smaller until he is nearly at his destination and will occasionally get stuck right before it, not able to get closer. Initiation of movement is typically not an issue. Fatigues very quickly, reports he can bend down and lift a heavier object 3x, but then is too fatigued to continue, and needs to rest for an hour. During subjective history, pt also makes offhand comment about dizziness with position changes, reports he gets dizzy for 10-15 seconds when laying in bed or getting up from bed , or when bending down to pick something up. Has been ongoing for a while. Prior Treatments and Tests Head CT: IMPRESSION: Prominent lateral ventricles, which are mildly larger than in 2018. Although not striking , the imaging findings would be compatible with a mild degree of normal pressure hydrocephalus. No prior territorial infarct can be seen. per Yolis Maciel on 08/29/2023 Treatment Goals Patient/Caregiver Goals Improve gait and balance PT-OP-C Subjective Start: 09/29/23 17:34 Freq: Status: Active Protocol: Document 12/02/23 15:15 DCW (Rec: 12/02/23 16:03 DCW [id number]) OP-PT Subjective Patient Comments Patient Comments Pt reports he has an MRI scheduled on December 21. PT-OP-D Balance Start: 09/29/23 17:34 Freq: Status: Active Protocol: Document 10/03/23 11:15 DCW (Rec: 10/03/23 12:02 DCW [id number]) Balance Tests Coon Balance Test Coon Balance Test Score 51/56 Coon Balance Assessment Evaluation Sitting to Standing Ability Independent w/out Hands Unsupported Stance Safely- 2 minutes Sitting Unsupported, Feet on Floor Safely- 2 minutes Standing to Sitting Ability Safely, Minimal Hand Use Transfer Ability Safely, Minimal Hand Use Unsupported Stance- Eyes Closed Supervision, 10 seconds Unsupported Stance- Eyes Open Independent, 1 minute Reaching Forward Standing Safely, 5 inches Pick- Up Object From Floor Independent/Safe Look Behind Shoulder - Standing Shifts Weight Well Turning 360 Degrees Turns Bilateral, < 4 secs Unsupported Stance, Alternating Feet on 4 Steps w/Supervision Stair Unsupported Tandem Stance Achieves Tandem Unilateral Leg Stance Lifts Leg/Holds 5-10 secs Total Score Coon Total Score (out of 56 points) 51 Coon Impairment Rating 1 to 19% Impaired (Score 45-55 ) PT-OP-E Functional Tests Start: 09/29/23 17:34 Freq: Status: Active Protocol: Document 11/30/23 12:00 DCW (Rec: 11/30/23 12:47 DCW [id number]) Functional Tests Dynamic Gait Index (DGI) Score 19/24 DGI Impairment Rating 20 to <40% Impaired (Score 15- 19) PT-OP-G Mobility & Gait Start: 09/29/23 17:53 Freq: Status: Active Protocol: Document 09/29/23 11:20 DCW (Rec: 09/30/23 08:47 DCW [id number]) OP Gait Assessment Gait Gait Assistance Required: Standby Assistance Assistive Devices Assistive Device None Gait Deviations General Gait Pattern Decreased Stride Length, Decreased Feet Clearance, Festinating,Flexed Trunk, Narrow Based Gait PT-OP-M Strength Start: 09/29/23 17:34 Freq: Status: Active Protocol: Document 09/29/23 11:20 DCW (Rec: 09/29/23 17:53 DCW [id number]) Hip Strength Hip Manual Muscle Testing Right Flexion (L2) 4- Good- Extension (S1) 4 Good Abduction 4+ Good+ Adduction 4+ Good+ External Rotation 4+ Good+ Internal Rotation 4+ Good+ Left Flexion (L2) 4- Good- Extension (S1) 4- Good- Abduction 4+ Good+ Adduction 4+ Good+ External Rotation 4+ Good+ Internal Rotation 4+ Good+ Knee Strength Knee Manual Muscle Testing Right Flexion (S2) 4- Good- Extension (L3) 4+ Good+ Left Flexion (S2) 4- Good- Extension (L3) 4+ Good+ PT-OP-O Vestibular Start: 09/29/23 17:34 Freq: Status: Active Protocol: Document 10/03/23 11:15 DCW (Rec: 10/03/23 12:02 DCW [id number]) Vestibular Assessment Positional Testing [place]-Hallpike Negative Left PT-OP-Q Treatments Start: 09/29/23 17:34 Freq: Status: Active Protocol: Document 12/02/23 15:15 DCW (Rec: 12/02/23 16:03 DCW [id number]) Cardio Equipment Recumbent Elliptical (Biodex) Duration (Minutes) 6 Resistance 5 Seat Position 12 Gym Equipment Shuttle Balance Red Details WBOS, Staggered, Lateral weight shift Comments WBOS: EO/EC Neuro Re-Education Treatment Balance Activities uneven surface Details Uneven blue pad Comments Hurdles foam Details Staggered Stance Surface AirEx Comments EO/EC, Head Turns tandem walking Details Tandem Stance PT-OP-T Assessment and Plan Start: 09/29/23 17:34 Freq: Status: Active Protocol: Document 12/02/23 15:15 DCW (Rec: 12/02/23 16:03 DCW [id number]) Physical Therapy Assessment Impairments Impairments Activity Tolerance,Balance, Functional Activities, Functional Mobility,Gait,ROM, Soft Tissue Mobility,Strength, Vestibular Goals Three Impairment MMT of 4-/5 with bilateral hip and knee flexion Investment Banking Analyst Goal (LTG) Pt to improve hip and knee flexion strength to at least 4 +/5 in order to improve stability and control during gait. LTG Duration 01/31/24 Two Impairment Positive left [place]-Hallpike Investment Banking Analyst Goal (LTG) Pt to exhibit negative positional testing bilaterally 11/10/23 - Mildly positive LTG Duration 01/31/24 One Impairment Pt does not have an appropriate home exercise program Short Term Goal (STG) Pt to be independent and compliant with an appropriate HEP STG Duration 10/30/23 Assessment Summary Assessment Good response to uneven surface ambulation, did well both with and without hurdles. Showing improvement in overall stability with recent use of FWW. Pt hopeful with upcoming MRI, can get more answers in regard to possible treatment opportunities. Physical Therapy Plan Frequency and Duration Frequency of Treatment 2x/Week Plan of Care Start Date 11/30/23 Plan of Care End Date 01/31/24 Therapeutic Interventions Therapeutic Interventions Balance Training,Canalithic Repositioning,Home Exercise Program,Manual Therapy, Neuromuscular Re-education, Patient/Caregiver Education, Self-Care/Home Management,Soft Tissue Mobilization, Therapeutic Activities, Therapeutic Exercises, Vestibular Rehabilitation Next Visit Focus/Plan Next Note Type Treatment Note Next Visit Plan Continue dynamic gait and balance for improve community mobility. POC: Balance/gait training, Continue improve sequencing gait with trek poles.
--- NOTE | 2023-12-08 11:15 | PT.OTN ---
Current Diagnoses Polyneuropathy, unspecified (12/08/23) Benign paroxysmal vertigo, left ear (12/08/23) Unsteadiness on feet (12/08/23) Other abnormalities of gait and mobility (12/08/23) Physical Therapy Treatment Note PT-OP-A Visit Information Start: 09/29/23 17:34 Freq: Status: Active Protocol: Document 12/08/23 10:32 DCW (Rec: 12/08/23 11:14 DCW [id number]) Out-Patient Physical Therapy Visit Information Visit Information Visit Type Treatment Note Visit Start Time 10:32 Visit Stop Time 11:15 Visit Number 15 Number of FINISHING ROOM OPERATOR Visits 0 Evaluation Information Evaluation Date 09/29/23 PT-OP-B Current Condition Start: 09/29/23 17:34 Freq: Status: Active Protocol: Document 09/29/23 11:20 DCW (Rec: 09/29/23 17:53 DCW [id number]) Current Condition History of Current Condition Current Complaints Worsening balance, gait, and positional dizziness History of Current Condition Pt is an 82 year old male presenting to skilled therapy due to worsening gait and imbalance. Pt has developed a shuffling, festinating gait pattern. Reports he was initial put on medications and run through tests for Parkinson's, but did not have any response. Reports his PCP now believes it is hydrocephalus, pt is waiting to get in with a Neurologist down in [place], currently scheduled some time in November. In the meantime, pt notes his balance and gait has been worsening at an increased rate . Reports if he attempts to walk across his house, his steps get smaller and smaller until he is nearly at his destination and will occasionally get stuck right before it, not able to get closer. Initiation of movement is typically not an issue. Fatigues very quickly, reports he can bend down and lift a heavier object 3x, but then is too fatigued to continue, and needs to rest for an hour. During subjective history, pt also makes offhand comment about dizziness with position changes, reports he gets dizzy for 10-15 seconds when laying in bed or getting up from bed , or when bending down to pick something up. Has been ongoing for a while. Prior Treatments and Tests Head CT: IMPRESSION: Prominent lateral ventricles, which are mildly larger than in 2018. Although not striking , the imaging findings would be compatible with a mild degree of normal pressure hydrocephalus. No prior territorial infarct can be seen. per Yolis Maciel on 08/29/2023 Treatment Goals Patient/Caregiver Goals Improve gait and balance PT-OP-C Subjective Start: 09/29/23 17:34 Freq: Status: Active Protocol: Document 12/08/23 10:32 DCW (Rec: 12/08/23 11:14 DCW [id number]) OP-PT Subjective Patient Comments Patient Comments Pt comes in today without a walker because it's a nuisance PT-OP-D Balance Start: 09/29/23 17:34 Freq: Status: Active Protocol: Document 10/03/23 11:15 DCW (Rec: 10/03/23 12:02 DCW [id number]) Balance Tests Coon Balance Test Coon Balance Test Score 51/56 Coon Balance Assessment Evaluation Sitting to Standing Ability Independent w/out Hands Unsupported Stance Safely- 2 minutes Sitting Unsupported, Feet on Floor Safely- 2 minutes Standing to Sitting Ability Safely, Minimal Hand Use Transfer Ability Safely, Minimal Hand Use Unsupported Stance- Eyes Closed Supervision, 10 seconds Unsupported Stance- Eyes Open Independent, 1 minute Reaching Forward Standing Safely, 5 inches Pick- Up Object From Floor Independent/Safe Look Behind Shoulder - Standing Shifts Weight Well Turning 360 Degrees Turns Bilateral, < 4 secs Unsupported Stance, Alternating Feet on 4 Steps w/Supervision Stair Unsupported Tandem Stance Achieves Tandem Unilateral Leg Stance Lifts Leg/Holds 5-10 secs Total Score Coon Total Score (out of 56 points) 51 Coon Impairment Rating 1 to 19% Impaired (Score 45-55 ) PT-OP-E Functional Tests Start: 09/29/23 17:34 Freq: Status: Active Protocol: Document 11/30/23 12:00 DCW (Rec: 11/30/23 12:47 DCW [id number]) Functional Tests Dynamic Gait Index (DGI) Score 19/24 DGI Impairment Rating 20 to <40% Impaired (Score 15- 19) PT-OP-G Mobility & Gait Start: 09/29/23 17:53 Freq: Status: Active Protocol: Document 09/29/23 11:20 DCW (Rec: 09/30/23 08:47 DCW [id number]) OP Gait Assessment Gait Gait Assistance Required: Standby Assistance Assistive Devices Assistive Device None Gait Deviations General Gait Pattern Decreased Stride Length, Decreased Feet Clearance, Festinating,Flexed Trunk, Narrow Based Gait PT-OP-M Strength Start: 09/29/23 17:34 Freq: Status: Active Protocol: Document 09/29/23 11:20 DCW (Rec: 09/29/23 17:53 DCW [id number]) Hip Strength Hip Manual Muscle Testing Right Flexion (L2) 4- Good- Extension (S1) 4 Good Abduction 4+ Good+ Adduction 4+ Good+ External Rotation 4+ Good+ Internal Rotation 4+ Good+ Left Flexion (L2) 4- Good- Extension (S1) 4- Good- Abduction 4+ Good+ Adduction 4+ Good+ External Rotation 4+ Good+ Internal Rotation 4+ Good+ Knee Strength Knee Manual Muscle Testing Right Flexion (S2) 4- Good- Extension (L3) 4+ Good+ Left Flexion (S2) 4- Good- Extension (L3) 4+ Good+ PT-OP-O Vestibular Start: 09/29/23 17:34 Freq: Status: Active Protocol: Document 10/03/23 11:15 DCW (Rec: 10/03/23 12:02 DCW [id number]) Vestibular Assessment Positional Testing Lynda-Hallpike Negative Left PT-OP-Q Treatments Start: 09/29/23 17:34 Freq: Status: Active Protocol: Document 12/08/23 10:32 DCW (Rec: 12/08/23 11:14 DCW [id number]) Cardio Equipment Recumbent Elliptical (Biodex) Duration (Minutes) 6 Resistance 5 Seat Position 12 Gym Equipment Shuttle Balance Red Details WBOS, Staggered, Lateral weight shift Comments WBOS: EO/EC Therapeutic Exercises Other Exercises Toe Taps Other Exercise Name Toe Taps Side bilateral Resistance 4# Equipment Used 6 step Neuro Re-Education Treatment Balance Activities Limits of Stability Details Retro Wall Fall Comments HEP Lateral Lunge Details Lateral lunge/lateral weight shift Equipment // bars Comments HEP SLS Details SLS Equipment // bars Comments HEP tandem walking Details Tandem Stance Comments HEP PT-OP-T Assessment and Plan Start: 09/29/23 17:34 Freq: Status: Active Protocol: Document 12/08/23 10:32 DCW (Rec: 12/08/23 11:14 DCW [id number]) Physical Therapy Assessment Impairments Impairments Activity Tolerance,Balance, Functional Activities, Functional Mobility,Gait,ROM, Soft Tissue Mobility,Strength, Vestibular Goals Three Impairment MMT of 4-/5 with bilateral hip and knee flexion Skilled Nursing Goal (LTG) Pt to improve hip and knee flexion strength to at least 4 +/5 in order to improve stability and control during gait. LTG Duration 01/31/24 Two Impairment Positive left Erbacon-Hallpike Skilled Nursing Goal (LTG) Pt to exhibit negative positional testing bilaterally 11/10/23 - Mildly positive LTG Duration 01/31/24 One Impairment Pt does not have an appropriate home exercise program Short Term Goal (STG) Pt to be independent and compliant with an appropriate HEP STG Duration 10/30/23 Assessment Summary Assessment Provided with HEP handout for home balance, pt happy with this plan. Continue to focus on balance and gait challenges . Physical Therapy Plan Frequency and Duration Frequency of Treatment 2x/Week Plan of Care Start Date 11/30/23 Plan of Care End Date 01/31/24 Therapeutic Interventions Therapeutic Interventions Balance Training,Canalithic Repositioning,Home Exercise Program,Manual Therapy, Neuromuscular Re-education, Patient/Caregiver Education, Self-Care/Home Management,Soft Tissue Mobilization, Therapeutic Activities, Therapeutic Exercises, Vestibular Rehabilitation Next Visit Focus/Plan Next Note Type Treatment Note Next Visit Plan Continue dynamic gait and balance for improve community mobility. POC: Balance/gait training, Continue improve sequencing gait with trek poles.
--- NOTE | 2023-12-13 16:03 | PT.OTN ---
Current Diagnoses Polyneuropathy, unspecified (12/13/23) Benign paroxysmal vertigo, left ear (12/13/23) Unsteadiness on feet (12/13/23) Other abnormalities of gait and mobility (12/13/23) Physical Therapy Treatment Note PT-OP-A Visit Information Start: 09/29/23 17:34 Freq: Status: Active Protocol: Document 12/13/23 15:20 DCW (Rec: 12/13/23 16:03 DCW [id number]) Out-Patient Physical Therapy Visit Information Visit Information Visit Type Treatment Note Visit Start Time 15:20 Visit Stop Time 16:00 Visit Number 16 Number of SKILLS INSTRUCTOR Visits 0 Evaluation Information Evaluation Date 09/29/23 PT-OP-B Current Condition Start: 09/29/23 17:34 Freq: Status: Active Protocol: Document 09/29/23 11:20 DCW (Rec: 09/29/23 17:53 DCW [id number]) Current Condition History of Current Condition Current Complaints Worsening balance, gait, and positional dizziness History of Current Condition Pt is an 82 year old male presenting to skilled therapy due to worsening gait and imbalance. Pt has developed a shuffling, festinating gait pattern. Reports he was initial put on medications and run through tests for Parkinson's, but did not have any response. Reports his PCP now believes it is hydrocephalus, pt is waiting to get in with a Neurologist down in [place], currently scheduled some time in November. In the meantime, pt notes his balance and gait has been worsening at an increased rate . Reports if he attempts to walk across his house, his steps get smaller and smaller until he is nearly at his destination and will occasionally get stuck right before it, not able to get closer. Initiation of movement is typically not an issue. Fatigues very quickly, reports he can bend down and lift a heavier object 3x, but then is too fatigued to continue, and needs to rest for an hour. During subjective history, pt also makes offhand comment about dizziness with position changes, reports he gets dizzy for 10-15 seconds when laying in bed or getting up from bed , or when bending down to pick something up. Has been ongoing for a while. Prior Treatments and Tests Head CT: IMPRESSION: Prominent lateral ventricles, which are mildly larger than in 2018. Although not striking , the imaging findings would be compatible with a mild degree of normal pressure hydrocephalus. No prior territorial infarct can be seen. per Yolis Maciel on 08/29/2023 Treatment Goals Patient/Caregiver Goals Improve gait and balance PT-OP-C Subjective Start: 09/29/23 17:34 Freq: Status: Active Protocol: Document 12/13/23 15:20 DCW (Rec: 12/13/23 16:03 DCW [id number]) OP-PT Subjective Patient Comments Patient Comments Pt doing well overall, has not heard back about his lumbar MRI results. PT-OP-D Balance Start: 09/29/23 17:34 Freq: Status: Active Protocol: Document 10/03/23 11:15 DCW (Rec: 10/03/23 12:02 DCW [id number]) Balance Tests Coon Balance Test Coon Balance Test Score 51/56 Coon Balance Assessment Evaluation Sitting to Standing Ability Independent w/out Hands Unsupported Stance Safely- 2 minutes Sitting Unsupported, Feet on Floor Safely- 2 minutes Standing to Sitting Ability Safely, Minimal Hand Use Transfer Ability Safely, Minimal Hand Use Unsupported Stance- Eyes Closed Supervision, 10 seconds Unsupported Stance- Eyes Open Independent, 1 minute Reaching Forward Standing Safely, 5 inches Pick- Up Object From Floor Independent/Safe Look Behind Shoulder - Standing Shifts Weight Well Turning 360 Degrees Turns Bilateral, < 4 secs Unsupported Stance, Alternating Feet on 4 Steps w/Supervision Stair Unsupported Tandem Stance Achieves Tandem Unilateral Leg Stance Lifts Leg/Holds 5-10 secs Total Score Coon Total Score (out of 56 points) 51 Coon Impairment Rating 1 to 19% Impaired (Score 45-55 ) PT-OP-E Functional Tests Start: 09/29/23 17:34 Freq: Status: Active Protocol: Document 11/30/23 12:00 DCW (Rec: 11/30/23 12:47 DCW [id number]) Functional Tests Dynamic Gait Index (DGI) Score 19/24 DGI Impairment Rating 20 to <40% Impaired (Score 15- 19) PT-OP-G Mobility & Gait Start: 09/29/23 17:53 Freq: Status: Active Protocol: Document 09/29/23 11:20 DCW (Rec: 09/30/23 08:47 DCW [id number]) OP Gait Assessment Gait Gait Assistance Required: Standby Assistance Assistive Devices Assistive Device None Gait Deviations General Gait Pattern Decreased Stride Length, Decreased Feet Clearance, Festinating,Flexed Trunk, Narrow Based Gait PT-OP-M Strength Start: 09/29/23 17:34 Freq: Status: Active Protocol: Document 09/29/23 11:20 DCW (Rec: 09/29/23 17:53 DCW [id number]) Hip Strength Hip Manual Muscle Testing Right Flexion (L2) 4- Good- Extension (S1) 4 Good Abduction 4+ Good+ Adduction 4+ Good+ External Rotation 4+ Good+ Internal Rotation 4+ Good+ Left Flexion (L2) 4- Good- Extension (S1) 4- Good- Abduction 4+ Good+ Adduction 4+ Good+ External Rotation 4+ Good+ Internal Rotation 4+ Good+ Knee Strength Knee Manual Muscle Testing Right Flexion (S2) 4- Good- Extension (L3) 4+ Good+ Left Flexion (S2) 4- Good- Extension (L3) 4+ Good+ PT-OP-O Vestibular Start: 09/29/23 17:34 Freq: Status: Active Protocol: Document 10/03/23 11:15 DCW (Rec: 10/03/23 12:02 DCW [id number]) Vestibular Assessment Positional Testing [place]-Hallpike Negative Left PT-OP-Q Treatments Start: 09/29/23 17:34 Freq: Status: Active Protocol: Document 12/13/23 15:20 DCW (Rec: 12/13/23 16:03 DCW [id number]) Cardio Equipment Recumbent Elliptical (Biodex) Duration (Minutes) 6 Resistance 6 Seat Position 13 Gym Equipment Shuttle Balance Red Details WBOS, Staggered, Lateral weight shift Comments WBOS: EO/EC Staggered: Head Turns Sport Cord Blue Exercise Details Lateral Stepping Cord/Resistance Blue/White Comments CGA Therapeutic Exercises Other Exercises Step Ups Other Exercise Name Step-ups Side bilateral Resistance 6 step Neuro Re-Education Treatment Balance Activities Limits of Stability Details Retro Wall Fall hurdles Details Hurdles/Foam PT-OP-T Assessment and Plan Start: 09/29/23 17:34 Freq: Status: Active Protocol: Document 12/13/23 15:20 DCW (Rec: 12/13/23 16:03 DCW [id number]) Physical Therapy Assessment Impairments Impairments Activity Tolerance,Balance, Functional Activities, Functional Mobility,Gait,ROM, Soft Tissue Mobility,Strength, Vestibular Goals Three Impairment MMT of 4-/5 with bilateral hip and knee flexion Retirement Goal (LTG) Pt to improve hip and knee flexion strength to at least 4 +/5 in order to improve stability and control during gait. LTG Duration 01/31/24 Two Impairment Positive left [place]-Hallpike Retirement Goal (LTG) Pt to exhibit negative positional testing bilaterally 11/10/23 - Mildly positive LTG Duration 01/31/24 One Impairment Pt does not have an appropriate home exercise program Short Term Goal (STG) Pt to be independent and compliant with an appropriate HEP STG Duration 10/30/23 Assessment Summary Assessment Pt demonstrates fairly good tolerance with activity today, admits he has not been compliant with HEP. Small review of HEP, as well as new step-ups. Physical Therapy Plan Frequency and Duration Frequency of Treatment 2x/Week Plan of Care Start Date 11/30/23 Plan of Care End Date 01/31/24 Therapeutic Interventions Therapeutic Interventions Balance Training,Canalithic Repositioning,Home Exercise Program,Manual Therapy, Neuromuscular Re-education, Patient/Caregiver Education, Self-Care/Home Management,Soft Tissue Mobilization, Therapeutic Activities, Therapeutic Exercises, Vestibular Rehabilitation Next Visit Focus/Plan Next Note Type Treatment Note Next Visit Plan Continue dynamic gait and balance for improve community mobility. POC: Balance/gait training, Continue improve sequencing gait with trek poles.
--- NOTE | 2023-12-19 15:14 | PT.OTN ---
Current Diagnoses Polyneuropathy, unspecified (12/19/23) Benign paroxysmal vertigo, left ear (12/19/23) Unsteadiness on feet (12/19/23) Other abnormalities of gait and mobility (12/19/23) Physical Therapy Treatment Note PT-OP-A Visit Information Start: 09/29/23 17:34 Freq: Status: Active Protocol: Document 12/19/23 14:35 DCW (Rec: 12/19/23 15:14 DCW [id number]) Out-Patient Physical Therapy Visit Information Visit Information Visit Type Treatment Note Visit Start Time 14:35 Visit Stop Time 15:15 Visit Number 17 Number of DRAINAGE ENGINEER Visits 0 Evaluation Information Evaluation Date 09/29/23 PT-OP-B Current Condition Start: 09/29/23 17:34 Freq: Status: Active Protocol: Document 09/29/23 11:20 DCW (Rec: 09/29/23 17:53 DCW [id number]) Current Condition History of Current Condition Current Complaints Worsening balance, gait, and positional dizziness History of Current Condition Pt is an 82 year old male presenting to skilled therapy due to worsening gait and imbalance. Pt has developed a shuffling, festinating gait pattern. Reports he was initial put on medications and run through tests for Parkinson's, but did not have any response. Reports his PCP now believes it is hydrocephalus, pt is waiting to get in with a Neurologist down in [place], currently scheduled some time in November. In the meantime, pt notes his balance and gait has been worsening at an increased rate . Reports if he attempts to walk across his house, his steps get smaller and smaller until he is nearly at his destination and will occasionally get stuck right before it, not able to get closer. Initiation of movement is typically not an issue. Fatigues very quickly, reports he can bend down and lift a heavier object 3x, but then is too fatigued to continue, and needs to rest for an hour. During subjective history, pt also makes offhand comment about dizziness with position changes, reports he gets dizzy for 10-15 seconds when laying in bed or getting up from bed , or when bending down to pick something up. Has been ongoing for a while. Prior Treatments and Tests Head CT: IMPRESSION: Prominent lateral ventricles, which are mildly larger than in 2018. Although not striking , the imaging findings would be compatible with a mild degree of normal pressure hydrocephalus. No prior territorial infarct can be seen. per Yolis Maciel on 08/29/2023 Treatment Goals Patient/Caregiver Goals Improve gait and balance PT-OP-C Subjective Start: 09/29/23 17:34 Freq: Status: Active Protocol: Document 12/19/23 14:35 DCW (Rec: 12/19/23 15:14 DCW [id number]) OP-PT Subjective Patient Comments Patient Comments I'm starting to get a headache. PT-OP-D Balance Start: 09/29/23 17:34 Freq: Status: Active Protocol: Document 10/03/23 11:15 DCW (Rec: 10/03/23 12:02 DCW [id number]) Balance Tests Coon Balance Test Coon Balance Test Score 51/56 Coon Balance Assessment Evaluation Sitting to Standing Ability Independent w/out Hands Unsupported Stance Safely- 2 minutes Sitting Unsupported, Feet on Floor Safely- 2 minutes Standing to Sitting Ability Safely, Minimal Hand Use Transfer Ability Safely, Minimal Hand Use Unsupported Stance- Eyes Closed Supervision, 10 seconds Unsupported Stance- Eyes Open Independent, 1 minute Reaching Forward Standing Safely, 5 inches Pick- Up Object From Floor Independent/Safe Look Behind Shoulder - Standing Shifts Weight Well Turning 360 Degrees Turns Bilateral, < 4 secs Unsupported Stance, Alternating Feet on 4 Steps w/Supervision Stair Unsupported Tandem Stance Achieves Tandem Unilateral Leg Stance Lifts Leg/Holds 5-10 secs Total Score Coon Total Score (out of 56 points) 51 Coon Impairment Rating 1 to 19% Impaired (Score 45-55 ) PT-OP-E Functional Tests Start: 09/29/23 17:34 Freq: Status: Active Protocol: Document 11/30/23 12:00 DCW (Rec: 11/30/23 12:47 DCW [id number]) Functional Tests Dynamic Gait Index (DGI) Score 19/24 DGI Impairment Rating 20 to <40% Impaired (Score 15- 19) PT-OP-G Mobility & Gait Start: 09/29/23 17:53 Freq: Status: Active Protocol: Document 09/29/23 11:20 DCW (Rec: 09/30/23 08:47 DCW [id number]) OP Gait Assessment Gait Gait Assistance Required: Standby Assistance Assistive Devices Assistive Device None Gait Deviations General Gait Pattern Decreased Stride Length, Decreased Feet Clearance, Festinating,Flexed Trunk, Narrow Based Gait PT-OP-M Strength Start: 09/29/23 17:34 Freq: Status: Active Protocol: Document 09/29/23 11:20 DCW (Rec: 09/29/23 17:53 DCW [id number]) Hip Strength Hip Manual Muscle Testing Right Flexion (L2) 4- Good- Extension (S1) 4 Good Abduction 4+ Good+ Adduction 4+ Good+ External Rotation 4+ Good+ Internal Rotation 4+ Good+ Left Flexion (L2) 4- Good- Extension (S1) 4- Good- Abduction 4+ Good+ Adduction 4+ Good+ External Rotation 4+ Good+ Internal Rotation 4+ Good+ Knee Strength Knee Manual Muscle Testing Right Flexion (S2) 4- Good- Extension (L3) 4+ Good+ Left Flexion (S2) 4- Good- Extension (L3) 4+ Good+ PT-OP-O Vestibular Start: 09/29/23 17:34 Freq: Status: Active Protocol: Document 10/03/23 11:15 DCW (Rec: 10/03/23 12:02 DCW [id number]) Vestibular Assessment Positional Testing [place]-Hallpike Negative Left PT-OP-Q Treatments Start: 09/29/23 17:34 Freq: Status: Active Protocol: Document 12/19/23 14:35 DCW (Rec: 12/19/23 15:14 DCW [id number]) Cardio Equipment Recumbent Elliptical (Biodex) Duration (Minutes) 6 Resistance 6 Seat Position 13 Gym Equipment Shuttle Balance Red Details WBOS, Staggered Comments WBOS: EO/EC Staggered: Head Turns Therapeutic Exercises Standing Exercises Hamstring Curls Standing Exercise Name HS Curls Side bilateral Resistance 10# hip abd & Ext Standing Exercise Name Hip Abduction Side bilateral Resistance 10# Equipment Used rail support Other Exercises Toe Taps Other Exercise Name Toe Taps Side bilateral Resistance 10# Equipment Used 6 step Neuro Re-Education Treatment Balance Activities SLS Details SLS Equipment // bars foam Details Staggered Stance Surface AirEx Comments EO/EC, Head Turns tandem walking Details Tandem Stance PT-OP-T Assessment and Plan Start: 09/29/23 17:34 Freq: Status: Active Protocol: Document 12/19/23 14:35 DCW (Rec: 12/19/23 15:14 DCW [id number]) Physical Therapy Assessment Impairments Impairments Activity Tolerance,Balance, Functional Activities, Functional Mobility,Gait,ROM, Soft Tissue Mobility,Strength, Vestibular Goals Three Impairment MMT of 4-/5 with bilateral hip and knee flexion Penitentiary Goal (LTG) Pt to improve hip and knee flexion strength to at least 4 +/5 in order to improve stability and control during gait. LTG Duration 01/31/24 Two Impairment Positive left [place]-Hallpike [facility]ent[facility] Goal (LTG) Pt to exhibit negative positional testing bilaterally 11/10/23 - Mildly positive LTG Duration 01/31/24 One Impairment Pt does not have an appropriate home exercise program Short Term Goal (STG) Pt to be independent and compliant with an appropriate HEP STG Duration 10/30/23 Assessment Summary Assessment Pt showing some fair improvement with tandem stance and SLS. Increase gait and dynamic balance challenges. Physical Therapy Plan Frequency and Duration Frequency of Treatment 2x/Week Plan of Care Start Date 11/30/23 Plan of Care End Date 01/31/24 Therapeutic Interventions Therapeutic Interventions Balance Training,Canalithic Repositioning,Home Exercise Program,Manual Therapy, Neuromuscular Re-education, Patient/Caregiver Education, Self-Care/Home Management,Soft Tissue Mobilization, Therapeutic Activities, Therapeutic Exercises, Vestibular Rehabilitation Next Visit Focus/Plan Next Note Type Treatment Note Next Visit Plan Continue dynamic gait and balance for improve community mobility. POC: Balance/gait training, Continue improve sequencing gait with trek poles.
--- NOTE | 2023-12-28 11:16 | PT.OTN ---
Current Diagnoses Polyneuropathy, unspecified (12/28/23) Benign paroxysmal vertigo, left ear (12/28/23) Unsteadiness on feet (12/28/23) Other abnormalities of gait and mobility (12/28/23) Physical Therapy Treatment Note PT-OP-A Visit Information Start: 09/29/23 17:34 Freq: Status: Active Protocol: Document 12/28/23 10:36 SP (Rec: 12/28/23 11:18 SP [id number]) Out-Patient Physical Therapy Visit Information Visit Information Visit Type Treatment Note Visit Start Time 10:36 Visit Stop Time 11:16 Visit Number 18 Number of BUFFER MACHINE Visits 1 Evaluation Information Evaluation Date 09/29/23 PT-OP-B Current Condition Start: 09/29/23 17:34 Freq: Status: Active Protocol: Document 09/29/23 11:20 DCW (Rec: 09/29/23 17:53 DCW [id number]) Current Condition History of Current Condition Current Complaints Worsening balance, gait, and positional dizziness History of Current Condition Pt is an 82 year old male presenting to skilled therapy due to worsening gait and imbalance. Pt has developed a shuffling, festinating gait pattern. Reports he was initial put on medications and run through tests for Parkinson's, but did not have any response. Reports his PCP now believes it is hydrocephalus, pt is waiting to get in with a Neurologist down in [place], currently scheduled some time in November. In the meantime, pt notes his balance and gait has been worsening at an increased rate . Reports if he attempts to walk across his house, his steps get smaller and smaller until he is nearly at his destination and will occasionally get stuck right before it, not able to get closer. Initiation of movement is typically not an issue. Fatigues very quickly, reports he can bend down and lift a heavier object 3x, but then is too fatigued to continue, and needs to rest for an hour. During subjective history, pt also makes offhand comment about dizziness with position changes, reports he gets dizzy for 10-15 seconds when laying in bed or getting up from bed , or when bending down to pick something up. Has been ongoing for a while. Prior Treatments and Tests Head CT: IMPRESSION: Prominent lateral ventricles, which are mildly larger than in 2018. Although not striking , the imaging findings would be compatible with a mild degree of normal pressure hydrocephalus. No prior territorial infarct can be seen. per Yolis Maciel on 08/29/2023 Treatment Goals Patient/Caregiver Goals Improve gait and balance PT-OP-C Subjective Start: 09/29/23 17:34 Freq: Status: Active Protocol: Document 12/28/23 10:36 SP (Rec: 12/28/23 11:18 SP [id number]) OP-PT Subjective Patient Comments Patient Comments Pt arrives using FWW for gait. Pt reports saw PCP Dr Mascorro on Tue and was told he was concerned with him not walking well and recommended using a FWW at this time for support to reduce fall risk, provided a handicap tag for the car with another person to drive him. Pt saw neurosurgeon (November 28) at [facility] and doing assessments if possibility of hydrocephalis and MRI Brain, CS and LS ordered and done/ hasn't received results) , Next follow up appt Jan. He states he isn't able to walk [place], friends asked I just walk around building [place] and afraid will fall. So is using FWW around building parkinglot then sits down inside awaiting rest return. He states hoping will find out soon what is going on in his brain, was discussed potential doing a drain spinal fluid to release pressure. PT-OP-D Balance Start: 09/29/23 17:34 Freq: Status: Active Protocol: Document 10/03/23 11:15 DCW (Rec: 10/03/23 12:02 DCW [id number]) Balance Tests Coon Balance Test Coon Balance Test Score 51/56 Coon Balance Assessment Evaluation Sitting to Standing Ability Independent w/out Hands Unsupported Stance Safely- 2 minutes Sitting Unsupported, Feet on Floor Safely- 2 minutes Standing to Sitting Ability Safely, Minimal Hand Use Transfer Ability Safely, Minimal Hand Use Unsupported Stance- Eyes Closed Supervision, 10 seconds Unsupported Stance- Eyes Open Independent, 1 minute Reaching Forward Standing Safely, 5 inches Pick- Up Object From Floor Independent/Safe Look Behind Shoulder - Standing Shifts Weight Well Turning 360 Degrees Turns Bilateral, < 4 secs Unsupported Stance, Alternating Feet on 4 Steps w/Supervision Stair Unsupported Tandem Stance Achieves Tandem Unilateral Leg Stance Lifts Leg/Holds 5-10 secs Total Score Coon Total Score (out of 56 points) 51 Coon Impairment Rating 1 to 19% Impaired (Score 45-55 ) PT-OP-E Functional Tests Start: 09/29/23 17:34 Freq: Status: Active Protocol: Document 11/30/23 12:00 DCW (Rec: 11/30/23 12:47 DCW [id number]) Functional Tests Dynamic Gait Index (DGI) Score DGI Impairment Rating 20 to <40% Impaired (Score 15- 19) PT-OP-G Mobility & Gait Start: 09/29/23 17:53 Freq: Status: Active Protocol: Document 09/29/23 11:20 DCW (Rec: 09/30/23 08:47 DCW [id number]) OP Gait Assessment Gait Gait Assistance Required: Standby Assistance Assistive Devices Assistive Device None Gait Deviations General Gait Pattern Decreased Stride Length, Decreased Feet Clearance, Festinating,Flexed Trunk, Narrow Based Gait PT-OP-M Strength Start: 09/29/23 17:34 Freq: Status: Active Protocol: Document 09/29/23 11:20 DCW (Rec: 09/29/23 17:53 DCW [id number]) Hip Strength Hip Manual Muscle Testing Right Flexion (L2) 4- Good- Extension (S1) 4 Good Abduction 4+ Good+ Adduction 4+ Good+ External Rotation 4+ Good+ Internal Rotation 4+ Good+ Left Flexion (L2) 4- Good- Extension (S1) 4- Good- Abduction 4+ Good+ Adduction 4+ Good+ External Rotation 4+ Good+ Internal Rotation 4+ Good+ Knee Strength Knee Manual Muscle Testing Right Flexion (S2) 4- Good- Extension (L3) 4+ Good+ Left Flexion (S2) 4- Good- Extension (L3) 4+ Good+ PT-OP-O Vestibular Start: 09/29/23 17:34 Freq: Status: Active Protocol: Document 10/03/23 11:15 DCW (Rec: 10/03/23 12:02 DCW [id number]) Vestibular Assessment Positional Testing Lynda-Hallpike Negative Left PT-OP-Q Treatments Start: 09/29/23 17:34 Freq: Status: Active Protocol: Document 12/28/23 10:36 SP (Rec: 12/28/23 11:18 SP [id number]) Cardio Equipment Recumbent Stepper (Sci-Fit) Duration (Minutes) 6 Resistance 3.5 Seat Position 14- cued big strides- 1.01 miles Other BUEs BLEs- 43-48 RPMs Therapeutic Exercises Standing Exercises resisted stepping Standing Exercise Name fwd, bwd, lateral Resistance [place] GreenTB Equipment Used inside //bars, not need contact reail Reps/Minutes 10 ft x3 laps each direction Comments occasional cued trailing LE clearance Other Exercises Toe Taps Other Exercise Name Toe Taps Side bilateral Resistance 10# leg wt- alternating Equipment Used 6 step //bar contact x2 instances Reps/Minutes 20 reps Comments cued wt shift over stance LE, improves soft asc/desc tap & stability Gait Training Gait Activity fww Description time spent use of FWW for safety positioning, recommended by physician Device Used FWW Level of Assistance SBA Distance/Duration 2 laps gym 340 ft total, 80ft x2 arrive/leave gym Treatment Focus increased stride and foot clearance Comments improved proximity to FWW with occasional cues, mod cues for increase stride. Neuro Re-Education Treatment Balance Activities foam Details Staggered Stance Surface AirEx Comments EO Head Turns EC 10 sec R ft fwd, 8 sec L ft fwd. Challenging keeping tall postuure and midline but does attempt make corrections just mostly flex posturing. tandem walking Details Tandem Stance Equipment //bars near as needed Comments RLE fwd 28 sec LLE fwd 23 sec (able put foot in position without UE contact rail) PT-OP-T Assessment and Plan Start: 09/29/23 17:34 Freq: Status: Active Protocol: Document 12/28/23 10:36 SP (Rec: 12/28/23 11:18 SP [id number]) Physical Therapy Assessment Goals Three Impairment MMT of 4-/5 with bilateral hip and knee flexion [facility]iary Goal (LTG) Pt to improve hip and knee flexion strength to at least 4 +/5 in order to improve stability and control during gait. LTG Duration 01/31/24 Two Impairment Positive left [place]-Hallpike Clubhouse Attendant Goal (LTG) Pt to exhibit negative positional testing bilaterally 11/10/23 - Mildly positive LTG Duration 01/31/24 One Impairment Pt does not have an appropriate home exercise program Short Term Goal (STG) Pt to be independent and compliant with an appropriate HEP STG Duration 10/30/23 Assessment Summary Assessment Pt is making improvement in tandem stance almost 30 sec. He is able to increase EC up to 8-10 sec standing on uneven surface, cues for improved posturing to increase time. TIme spent good safety use of FWW at this time for posturing support, decreased festinating gait demonstrates without. Is being followed by neurosurgeon at [facility] and awaits further assessment of head. Physical Therapy Plan Frequency and Duration Frequency of Treatment 2x/Week Plan of Care Start Date 11/30/23 Plan of Care End Date 01/31/24 Therapeutic Interventions Therapeutic Interventions Balance Training,Canalithic Repositioning,Home Exercise Program,Manual Therapy, Neuromuscular Re-education, Patient/Caregiver Education, Self-Care/Home Management,Soft Tissue Mobilization, Therapeutic Activities, Therapeutic Exercises, Vestibular Rehabilitation Next Visit Focus/Plan Next Note Type Treatment Note Next Visit Plan Continue gait FWW. Continue dynamic gait and balance for improve community mobility. POC: Balance/gait training, Continue improve sequencing gait with trek poles.
--- NOTE | 2023-12-30 09:46 | PT.OTN ---
Current Diagnoses Polyneuropathy, unspecified (12/30/23) Benign paroxysmal vertigo, left ear (12/30/23) Unsteadiness on feet (12/30/23) Other abnormalities of gait and mobility (12/30/23) Physical Therapy Treatment Note PT-OP-A Visit Information Start: 09/29/23 17:34 Freq: Status: Active Protocol: Document 12/30/23 09:02 DCW (Rec: 12/30/23 09:46 DCW [id number]) Out-Patient Physical Therapy Visit Information Visit Information Visit Type Treatment Note Visit Start Time 09:02 Visit Stop Time 09:45 Visit Number 19 Number of MAJOR SALES ASSOCIATE Visits 0 Evaluation Information Evaluation Date 09/29/23 PT-OP-B Current Condition Start: 09/29/23 17:34 Freq: Status: Active Protocol: Document 09/29/23 11:20 DCW (Rec: 09/29/23 17:53 DCW [id number]) Current Condition History of Current Condition Current Complaints Worsening balance, gait, and positional dizziness History of Current Condition Pt is an 82 year old male presenting to skilled therapy due to worsening gait and imbalance. Pt has developed a shuffling, festinating gait pattern. Reports he was initial put on medications and run through tests for Parkinson's, but did not have any response. Reports his PCP now believes it is hydrocephalus, pt is waiting to get in with a Neurologist down in [place], currently scheduled some time in November. In the meantime, pt notes his balance and gait has been worsening at an increased rate . Reports if he attempts to walk across his house, his steps get smaller and smaller until he is nearly at his destination and will occasionally get stuck right before it, not able to get closer. Initiation of movement is typically not an issue. Fatigues very quickly, reports he can bend down and lift a heavier object 3x, but then is too fatigued to continue, and needs to rest for an hour. During subjective history, pt also makes offhand comment about dizziness with position changes, reports he gets dizzy for 10-15 seconds when laying in bed or getting up from bed , or when bending down to pick something up. Has been ongoing for a while. Prior Treatments and Tests Head CT: IMPRESSION: Prominent lateral ventricles, which are mildly larger than in 2018. Although not striking , the imaging findings would be compatible with a mild degree of normal pressure hydrocephalus. No prior territorial infarct can be seen. per Yolis Maciel on 08/29/2023 Treatment Goals Patient/Caregiver Goals Improve gait and balance PT-OP-C Subjective Start: 09/29/23 17:34 Freq: Status: Active Protocol: Document 12/30/23 09:02 DCW (Rec: 12/30/23 09:46 DCW [id number]) OP-PT Subjective Patient Comments Patient Comments Pt notes he is moving okay so far, but as the day goes on, I get too tired to do much. Admits he fell yesterday, bent over to put something away and just kept going forward. No injuries or lingering soreness noted. PT-OP-D Balance Start: 09/29/23 17:34 Freq: Status: Active Protocol: Document 10/03/23 11:15 DCW (Rec: 10/03/23 12:02 DCW [id number]) Balance Tests Coon Balance Test Coon Balance Test Score 51/56 Coon Balance Assessment Evaluation Sitting to Standing Ability Independent w/out Hands Unsupported Stance Safely- 2 minutes Sitting Unsupported, Feet on Floor Safely- 2 minutes Standing to Sitting Ability Safely, Minimal Hand Use Transfer Ability Safely, Minimal Hand Use Unsupported Stance- Eyes Closed Supervision, 10 seconds Unsupported Stance- Eyes Open Independent, 1 minute Reaching Forward Standing Safely, 5 inches Pick- Up Object From Floor Independent/Safe Look Behind Shoulder - Standing Shifts Weight Well Turning 360 Degrees Turns Bilateral, < 4 secs Unsupported Stance, Alternating Feet on 4 Steps w/Supervision Stair Unsupported Tandem Stance Achieves Tandem Unilateral Leg Stance Lifts Leg/Holds 5-10 secs Total Score Coon Total Score (out of 56 points) 51 Coon Impairment Rating 1 to 19% Impaired (Score 45-55 ) PT-OP-E Functional Tests Start: 09/29/23 17:34 Freq: Status: Active Protocol: Document 11/30/23 12:00 DCW (Rec: 11/30/23 12:47 DCW [id number]) Functional Tests Dynamic Gait Index (DGI) Score 1924 DGI Impairment Rating 20 to <40% Impaired (Score 15- 19) PT-OP-G Mobility & Gait Start: 09/29/23 17:53 Freq: Status: Active Protocol: Document 09/29/23 11:20 DCW (Rec: 09/30/23 08:47 DCW [id number]) OP Gait Assessment Gait Gait Assistance Required: Standby Assistance Assistive Devices Assistive Device None Gait Deviations General Gait Pattern Decreased Stride Length, Decreased Feet Clearance, Festinating,Flexed Trunk, Narrow Based Gait PT-OP-M Strength Start: 09/29/23 17:34 Freq: Status: Active Protocol: Document 09/29/23 11:20 DCW (Rec: 09/29/23 17:53 DCW [id number]) Hip Strength Hip Manual Muscle Testing Right Flexion (L2) 4- Good- Extension (S1) 4 Good Abduction 4+ Good+ Adduction 4+ Good+ External Rotation 4+ Good+ Internal Rotation 4+ Good+ Left Flexion (L2) 4- Good- Extension (S1) 4- Good- Abduction 4+ Good+ Adduction 4+ Good+ External Rotation 4+ Good+ Internal Rotation 4+ Good+ Knee Strength Knee Manual Muscle Testing Right Flexion (S2) 4- Good- Extension (L3) 4+ Good+ Left Flexion (S2) 4- Good- Extension (L3) 4+ Good+ PT-OP-O Vestibular Start: 09/29/23 17:34 Freq: Status: Active Protocol: Document 10/03/23 11:15 DCW (Rec: 10/03/23 12:02 DCW [id number]) Vestibular Assessment Positional Testing Lynda-Hallpike Negative Left PT-OP-Q Treatments Start: 09/29/23 17:34 Freq: Status: Active Protocol: Document 12/30/23 09:02 DCW (Rec: 12/30/23 09:46 DCW [id number]) Cardio Equipment Recumbent Elliptical (Biodex) Duration (Minutes) 6 Resistance 6 Seat Position 13 Gym Equipment Shuttle Recovery unilateral squat Resistance 50# (2 navy) Reps/Time 15 L, 11 R before tired bilateral squat Resistance 87# (3 navy) Reps/Time x25 Shuttle Balance Red Details WBOS, Staggered Comments WBOS: EO/EC Staggered: Head Turns Neuro Re-Education Treatment Balance Activities hurdles Details Hurdles/Foam Comments Fwd, Tandem, Side-strpping PT-OP-T Assessment and Plan Start: 09/29/23 17:34 Freq: Status: Active Protocol: Document 12/30/23 09:02 DCW (Rec: 12/30/23 09:46 DC [id number]) Physical Therapy Assessment Assessment Summary Assessment Showing good progress with ability to perform balance activities, continues to require verbal cues regarding increasing stride length. Continue with strengthening and balance challenges. Physical Therapy Plan Frequency and Duration Frequency of Treatment 2x/Week Plan of Care Start Date 11/30/23 Plan of Care End Date 01/31/24 Therapeutic Interventions Therapeutic Interventions Balance Training,Canalithic Repositioning,Home Exercise Program,Manual Therapy, Neuromuscular Re-education, Patient/Caregiver Education, Self-Care/Home Management,Soft Tissue Mobilization, Therapeutic Activities, Therapeutic Exercises, Vestibular Rehabilitation Next Visit Focus/Plan Next Note Type Treatment Note Next Visit Plan Continue gait FWW. Continue dynamic gait and balance for improve community mobility. POC: Balance/gait training, Continue improve sequencing gait with trek poles.
--- NOTE | 2024-01-02 12:41 | PT.OTN ---
Current Diagnoses Polyneuropathy, unspecified (01/02/24) Benign paroxysmal vertigo, left ear (01/02/24) Unsteadiness on feet (01/02/24) Other abnormalities of gait and mobility (01/02/24) Physical Therapy Treatment Note PT-OP-A Visit Information Start: 09/29/23 17:34 Freq: Status: Active Protocol: Document 01/02/24 12:00 DCW (Rec: 01/02/24 12:41 DCW [id number]) Out-Patient Physical Therapy Visit Information Visit Information Visit Type Treatment Note Visit Start Time 12:00 Visit Stop Time 12:45 Visit Number 20 Number of CIVIL ENGINEERING TEACHER Visits 0 Evaluation Information Evaluation Date 09/29/23 PT-OP-B Current Condition Start: 09/29/23 17:34 Freq: Status: Active Protocol: Document 09/29/23 11:20 DCW (Rec: 09/29/23 17:53 DCW [id number]) Current Condition History of Current Condition Current Complaints Worsening balance, gait, and positional dizziness History of Current Condition Pt is an 82 year old male presenting to skilled therapy due to worsening gait and imbalance. Pt has developed a shuffling, festinating gait pattern. Reports he was initial put on medications and run through tests for Parkinson's, but did not have any response. Reports his PCP now believes it is hydrocephalus, pt is waiting to get in with a Neurologist down in [place], currently scheduled some time in November. In the meantime, pt notes his balance and gait has been worsening at an increased rate . Reports if he attempts to walk across his house, his steps get smaller and smaller until he is nearly at his destination and will occasionally get stuck right before it, not able to get closer. Initiation of movement is typically not an issue. Fatigues very quickly, reports he can bend down and lift a heavier object 3x, but then is too fatigued to continue, and needs to rest for an hour. During subjective history, pt also makes offhand comment about dizziness with position changes, reports he gets dizzy for 10-15 seconds when laying in bed or getting up from bed , or when bending down to pick something up. Has been ongoing for a while. Prior Treatments and Tests Head CT: IMPRESSION: Prominent lateral ventricles, which are mildly larger than in 2018. Although not striking , the imaging findings would be compatible with a mild degree of normal pressure hydrocephalus. No prior territorial infarct can be seen. per Yolis Maciel on 08/29/2023 Treatment Goals Patient/Caregiver Goals Improve gait and balance PT-OP-C Subjective Start: 09/29/23 17:34 Freq: Status: Active Protocol: Document 01/02/24 12:00 DCW (Rec: 01/02/24 12:41 DCW [id number]) OP-PT Subjective Patient Comments Patient Comments Pt notes he is feeling pretty good today. PT-OP-D Balance Start: 09/29/23 17:34 Freq: Status: Active Protocol: Document 10/03/23 11:15 DCW (Rec: 10/03/23 12:02 DCW [id number]) Balance Tests Coon Balance Test Coon Balance Test Score 51/56 Coon Balance Assessment Evaluation Sitting to Standing Ability Independent w/out Hands Unsupported Stance Safely- 2 minutes Sitting Unsupported, Feet on Floor Safely- 2 minutes Standing to Sitting Ability Safely, Minimal Hand Use Transfer Ability Safely, Minimal Hand Use Unsupported Stance- Eyes Closed Supervision, 10 seconds Unsupported Stance- Eyes Open Independent, 1 minute Reaching Forward Standing Safely, 5 inches Pick- Up Object From Floor Independent/Safe Look Behind Shoulder - Standing Shifts Weight Well Turning 360 Degrees Turns Bilateral, < 4 secs Unsupported Stance, Alternating Feet on 4 Steps w/Supervision Stair Unsupported Tandem Stance Achieves Tandem Unilateral Leg Stance Lifts Leg/Holds 5-10 secs Total Score Coon Total Score (out of 56 points) 51 Coon Impairment Rating 1 to 19% Impaired (Score 45-55 ) PT-OP-E Functional Tests Start: 09/29/23 17:34 Freq: Status: Active Protocol: Document 11/30/23 12:00 DCW (Rec: 11/30/23 12:47 DCW [id number]) Functional Tests Dynamic Gait Index (DGI) Score 19/24 DGI Impairment Rating 20 to <40% Impaired (Score 15- 19) PT-OP-G Mobility & Gait Start: 09/29/23 17:53 Freq: Status: Active Protocol: Document 09/29/23 11:20 DCW (Rec: 09/30/23 08:47 DCW [id number]) OP Gait Assessment Gait Gait Assistance Required: Standby Assistance Assistive Devices Assistive Device None Gait Deviations General Gait Pattern Decreased Stride Length, Decreased Feet Clearance, Festinating,Flexed Trunk, Narrow Based Gait PT-OP-M Strength Start: 09/29/23 17:34 Freq: Status: Active Protocol: Document 09/29/23 11:20 DCW (Rec: 09/29/23 17:53 DCW [id number]) Hip Strength Hip Manual Muscle Testing Right Flexion (L2) 4- Good- Extension (S1) 4 Good Abduction 4+ Good+ Adduction 4+ Good+ External Rotation 4+ Good+ Internal Rotation 4+ Good+ Left Flexion (L2) 4- Good- Extension (S1) 4- Good- Abduction 4+ Good+ Adduction 4+ Good+ External Rotation 4+ Good+ Internal Rotation 4+ Good+ Knee Strength Knee Manual Muscle Testing Right Flexion (S2) 4- Good- Extension (L3) 4+ Good+ Left Flexion (S2) 4- Good- Extension (L3) 4+ Good+ PT-OP-O Vestibular Start: 09/29/23 17:34 Freq: Status: Active Protocol: Document 10/03/23 11:15 DCW (Rec: 10/03/23 12:02 DCW [id number]) Vestibular Assessment Positional Testing Lynda-Hallpike Negative Left PT-OP-Q Treatments Start: 09/29/23 17:34 Freq: Status: Active Protocol: Document 01/02/24 12:00 DCW (Rec: 01/02/24 12:41 DCW [id number]) Cardio Equipment Recumbent Elliptical (Biodex) Duration (Minutes) 6 Resistance 7->6 Seat Position 13 Gym Equipment Shuttle Recovery unilateral squat Resistance 50# (2 navy) bilateral squat Resistance 87# (3 navy) Reps/Time x25 Shuttle Balance Red Details WBOS, Staggered Comments WBOS: EO/EC, Head turns Staggered PT-OP-T Assessment and Plan Start: 09/29/23 17:34 Freq: Status: Active Protocol: Document 01/02/24 12:00 DCW (Rec: 01/02/24 12:41 DCW [id number]) Physical Therapy Assessment Impairments Impairments Activity Tolerance,Balance, Functional Activities, Functional Mobility,Gait,ROM, Soft Tissue Mobility,Strength, Vestibular Goals Three Impairment MMT of 4-/5 with bilateral hip and knee flexion Tree Surgeon Helper Goal (LTG) Pt to improve hip and knee flexion strength to at least 4 +/5 in order to improve stability and control during gait. LTG Duration 01/31/24 Two Impairment Positive left [place]-Hallpike Mcc Goal (LTG) Pt to exhibit negative positional testing bilaterally 11/10/23 - Mildly positive LTG Duration 01/31/24 One Impairment Pt does not have an appropriate home exercise program Short Term Goal (STG) Pt to be independent and compliant with an appropriate HEP STG Duration 10/30/23 Assessment Summary Assessment Due to pt complaints of worsening dizziness, positional testing was performed. Pt demonstrated pure down-beating nystagmus, which would be more likley an indication of a central cause of his symptoms, fitting with potential DDx of hydrocephalus . 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 Physical Therapy Plan Frequency and Duration Frequency of Treatment 2x/Week Plan of Care Start Date 11/30/23 Plan of Care End Date 01/31/24 Therapeutic Interventions Therapeutic Interventions Balance Training,Canalithic Repositioning,Home Exercise Program,Manual Therapy, Neuromuscular Re-education, Patient/Caregiver Education, Self-Care/Home Management,Soft Tissue Mobilization, Therapeutic Activities, Therapeutic Exercises, Vestibular Rehabilitation Next Visit Focus/Plan Next Note Type Treatment Note Next Visit Plan Continue gait FWW. Continue dynamic gait and balance for improve community mobility. POC: Balance/gait training, Continue improve sequencing gait with trek poles.
--- NOTE | 2024-01-04 12:41 | PT.OTN ---
Current Diagnoses Polyneuropathy, unspecified (01/04/24) Benign paroxysmal vertigo, left ear (01/04/24) Unsteadiness on feet (01/04/24) Other abnormalities of gait and mobility (01/04/24) Physical Therapy Treatment Note PT-OP-A Visit Information Start: 09/29/23 17:34 Freq: Status: Active Protocol: Document 01/04/24 12:00 DCW (Rec: 01/04/24 12:41 DCW [id number]) Out-Patient Physical Therapy Visit Information Visit Information Visit Type Treatment Note Visit Start Time 12:00 Visit Stop Time 12:45 Visit Number 21 Number of MARINE PIPEFITTER Visits 0 Evaluation Information Evaluation Date 09/29/23 PT-OP-B Current Condition Start: 09/29/23 17:34 Freq: Status: Active Protocol: Document 09/29/23 11:20 DCW (Rec: 09/29/23 17:53 DCW [id number]) Current Condition History of Current Condition Current Complaints Worsening balance, gait, and positional dizziness History of Current Condition Pt is an 82 year old male presenting to skilled therapy due to worsening gait and imbalance. Pt has developed a shuffling, festinating gait pattern. Reports he was initial put on medications and run through tests for Parkinson's, but did not have any response. Reports his PCP now believes it is hydrocephalus, pt is waiting to get in with a Neurologist down in [place], currently scheduled some time in November. In the meantime, pt notes his balance and gait has been worsening at an increased rate . Reports if he attempts to walk across his house, his steps get smaller and smaller until he is nearly at his destination and will occasionally get stuck right before it, not able to get closer. Initiation of movement is typically not an issue. Fatigues very quickly, reports he can bend down and lift a heavier object 3x, but then is too fatigued to continue, and needs to rest for an hour. During subjective history, pt also makes offhand comment about dizziness with position changes, reports he gets dizzy for 10-15 seconds when laying in bed or getting up from bed , or when bending down to pick something up. Has been ongoing for a while. Prior Treatments and Tests Head CT: IMPRESSION: Prominent lateral ventricles, which are mildly larger than in 2018. Although not striking , the imaging findings would be compatible with a mild degree of normal pressure hydrocephalus. No prior territorial infarct can be seen. per Yolis Maciel on 08/29/2023 Treatment Goals Patient/Caregiver Goals Improve gait and balance PT-OP-C Subjective Start: 09/29/23 17:34 Freq: Status: Active Protocol: Document 01/04/24 12:00 DCW (Rec: 01/04/24 12:41 DCW [id number]) OP-PT Subjective Patient Comments Patient Comments Busy day, coming right along. PT-OP-D Balance Start: 09/29/23 17:34 Freq: Status: Active Protocol: Document 10/03/23 11:15 DCW (Rec: 10/03/23 12:02 DCW [id number]) Balance Tests Coon Balance Test Coon Balance Test Score 51/56 Coon Balance Assessment Evaluation Sitting to Standing Ability Independent w/out Hands Unsupported Stance Safely- 2 minutes Sitting Unsupported, Feet on Floor Safely- 2 minutes Standing to Sitting Ability Safely, Minimal Hand Use Transfer Ability Safely, Minimal Hand Use Unsupported Stance- Eyes Closed Supervision, 10 seconds Unsupported Stance- Eyes Open Independent, 1 minute Reaching Forward Standing Safely, 5 inches Pick- Up Object From Floor Independent/Safe Look Behind Shoulder - Standing Shifts Weight Well Turning 360 Degrees Turns Bilateral, < 4 secs Unsupported Stance, Alternating Feet on 4 Steps w/Supervision Stair Unsupported Tandem Stance Achieves Tandem Unilateral Leg Stance Lifts Leg/Holds 5-10 secs Total Score Coon Total Score (out of 56 points) 51 Coon Impairment Rating 1 to 19% Impaired (Score 45-55 ) PT-OP-E Functional Tests Start: 09/29/23 17:34 Freq: Status: Active Protocol: Document 11/30/23 12:00 DCW (Rec: 11/30/23 12:47 DCW [id number]) Functional Tests Dynamic Gait Index (DGI) Score 19/24 DGI Impairment Rating 20 to <40% Impaired (Score 15- 19) PT-OP-G Mobility & Gait Start: 09/29/23 17:53 Freq: Status: Active Protocol: Document 09/29/23 11:20 DCW (Rec: 09/30/23 08:47 DCW [id number]) OP Gait Assessment Gait Gait Assistance Required: Standby Assistance Assistive Devices Assistive Device None Gait Deviations General Gait Pattern Decreased Stride Length, Decreased Feet Clearance, Festinating,Flexed Trunk, Narrow Based Gait PT-OP-M Strength Start: 09/29/23 17:34 Freq: Status: Active Protocol: Document 09/29/23 11:20 DCW (Rec: 09/29/23 17:53 DCW [id number]) Hip Strength Hip Manual Muscle Testing Right Flexion (L2) 4- Good- Extension (S1) 4 Good Abduction 4+ Good+ Adduction 4+ Good+ External Rotation 4+ Good+ Internal Rotation 4+ Good+ Left Flexion (L2) 4- Good- Extension (S1) 4- Good- Abduction 4+ Good+ Adduction 4+ Good+ External Rotation 4+ Good+ Internal Rotation 4+ Good+ Knee Strength Knee Manual Muscle Testing Right Flexion (S2) 4- Good- Extension (L3) 4+ Good+ Left Flexion (S2) 4- Good- Extension (L3) 4+ Good+ PT-OP-O Vestibular Start: 09/29/23 17:34 Freq: Status: Active Protocol: Document 10/03/23 11:15 DCW (Rec: 10/03/23 12:02 DCW [id number]) Vestibular Assessment Positional Testing [place]-Hallpike Negative Left PT-OP-Q Treatments Start: 09/29/23 17:34 Freq: Status: Active Protocol: Document 01/04/24 12:00 DCW (Rec: 01/04/24 12:41 DCW [id number]) Cardio Equipment Recumbent Elliptical (Biodex) Duration (Minutes) 6 Resistance 6 Seat Position 13 Gym Equipment Shuttle Recovery unilateral squat Resistance 50# (2 navy) bilateral squat Resistance 87# (3 navy) Reps/Time x25 Shuttle Balance Red Details WBOS, Staggered Comments WBOS: EO/EC, Head turns Staggered Neuro Re-Education Treatment Balance Activities Lateral Lunge Details Slider SL squat Equipment // bars hurdles Details Hurdles Equipment 4# AW Comments Fwd, Side-strpping PT-OP-T Assessment and Plan Start: 09/29/23 17:34 Freq: Status: Active Protocol: Document 01/04/24 12:00 DCW (Rec: 01/04/24 12:41 DCW [id number]) Physical Therapy Assessment Impairments Impairments Activity Tolerance,Balance, Functional Activities, Functional Mobility,Gait,ROM, Soft Tissue Mobility,Strength, Vestibular Goals Three Impairment MMT of 4-/5 with bilateral hip and knee flexion Shelter Goal (LTG) Pt to improve hip and knee flexion strength to at least 4 +/5 in order to improve stability and control during gait. LTG Duration 01/31/24 Two Impairment Positive left [place]-Hallpike Shelter Goal (LTG) Pt to exhibit negative positional testing bilaterally 11/10/23 - Mildly positive LTG Duration 01/31/24 One Impairment Pt does not have an appropriate home exercise program Short Term Goal (STG) Pt to be independent and compliant with an appropriate HEP STG Duration 10/30/23 Assessment Summary Assessment Pt showing some mild progression in balance with dynamic challenges, tolerating activity fairly well with minimal rest breaks. Physical Therapy Plan Frequency and Duration Frequency of Treatment 2x/Week Plan of Care Start Date 11/30/23 Plan of Care End Date 01/31/24 Therapeutic Interventions Therapeutic Interventions Balance Training,Canalithic Repositioning,Home Exercise Program,Manual Therapy, Neuromuscular Re-education, Patient/Caregiver Education, Self-Care/Home Management,Soft Tissue Mobilization, Therapeutic Activities, Therapeutic Exercises, Vestibular Rehabilitation Next Visit Focus/Plan Next Note Type Treatment Note Next Visit Plan Continue gait FWW. Continue dynamic gait and balance for improve community mobility. POC: Balance/gait training, Continue improve sequencing gait with trek poles.
--- NOTE | 2024-01-12 12:44 | PT.OTN ---
Current Diagnoses Polyneuropathy, unspecified (01/12/24) Benign paroxysmal vertigo, left ear (01/12/24) Unsteadiness on feet (01/12/24) Other abnormalities of gait and mobility (01/12/24) Physical Therapy Treatment Note PT-OP-A Visit Information Start: 09/29/23 17:34 Freq: Status: Active Protocol: Document 01/12/24 12:01 DCW (Rec: 01/12/24 12:43 DCW [id number]) Out-Patient Physical Therapy Visit Information Visit Information Visit Type Treatment Note Visit Start Time 12:01 Visit Stop Time 12:45 Visit Number 22 Number of BOILERMAKER APPRENTICE Visits 0 Evaluation Information Evaluation Date 09/29/23 PT-OP-B Current Condition Start: 09/29/23 17:34 Freq: Status: Active Protocol: Document 09/29/23 11:20 DCW (Rec: 09/29/23 17:53 DCW [id number]) Current Condition History of Current Condition Current Complaints Worsening balance, gait, and positional dizziness History of Current Condition Pt is an 82 year old male presenting to skilled therapy due to worsening gait and imbalance. Pt has developed a shuffling, festinating gait pattern. Reports he was initial put on medications and run through tests for Parkinson's, but did not have any response. Reports his PCP now believes it is hydrocephalus, pt is waiting to get in with a Neurologist down in [place], currently scheduled some time in November. In the meantime, pt notes his balance and gait has been worsening at an increased rate . Reports if he attempts to walk across his house, his steps get smaller and smaller until he is nearly at his destination and will occasionally get stuck right before it, not able to get closer. Initiation of movement is typically not an issue. Fatigues very quickly, reports he can bend down and lift a heavier object 3x, but then is too fatigued to continue, and needs to rest for an hour. During subjective history, pt also makes offhand comment about dizziness with position changes, reports he gets dizzy for 10-15 seconds when laying in bed or getting up from bed , or when bending down to pick something up. Has been ongoing for a while. Prior Treatments and Tests Head CT: IMPRESSION: Prominent lateral ventricles, which are mildly larger than in 2018. Although not striking , the imaging findings would be compatible with a mild degree of normal pressure hydrocephalus. No prior territorial infarct can be seen. per Yolis Maciel on 08/29/2023 Treatment Goals Patient/Caregiver Goals Improve gait and balance PT-OP-C Subjective Start: 09/29/23 17:34 Freq: Status: Active Protocol: Document 01/12/24 12:01 DCW (Rec: 01/12/24 12:43 DCW [id number]) OP-PT Subjective Patient Comments Patient Comments Pt was seen by Dr Kt busch in [place], have a plan going forward to place a catheter for his CSF to allow it to drain for three days, see if he improves, and then, if so, will have the shunt placed. Has this plan going forward, but no dates scheduled yet. PT-OP-D Balance Start: 09/29/23 17:34 Freq: Status: Active Protocol: Document 10/03/23 11:15 DCW (Rec: 10/03/23 12:02 DCW [id number]) Balance Tests Coon Balance Test Coon Balance Test Score 51/56 Coon Balance Assessment Evaluation Sitting to Standing Ability Independent w/out Hands Unsupported Stance Safely- 2 minutes Sitting Unsupported, Feet on Floor Safely- 2 minutes Standing to Sitting Ability Safely, Minimal Hand Use Transfer Ability Safely, Minimal Hand Use Unsupported Stance- Eyes Closed Supervision, 10 seconds Unsupported Stance- Eyes Open Independent, 1 minute Reaching Forward Standing Safely, 5 inches Pick- Up Object From Floor Independent/Safe Look Behind Shoulder - Standing Shifts Weight Well Turning 360 Degrees Turns Bilateral, < 4 secs Unsupported Stance, Alternating Feet on 4 Steps w/Supervision Stair Unsupported Tandem Stance Achieves Tandem Unilateral Leg Stance Lifts Leg/Holds 5-10 secs Total Score Coon Total Score (out of 56 points) 51 Coon Impairment Rating 1 to 19% Impaired (Score 45-55 ) PT-OP-E Functional Tests Start: 09/29/23 17:34 Freq: Status: Active Protocol: Document 11/30/23 12:00 DCW (Rec: 11/30/23 12:47 DCW [id number]) Functional Tests Dynamic Gait Index (DGI) Score 24 DGI Impairment Rating 20 to <40% Impaired (Score 15- 19) PT-OP-G Mobility & Gait Start: 09/29/23 17:53 Freq: Status: Active Protocol: Document 09/29/23 11:20 DCW (Rec: 09/30/23 08:47 DCW [id number]) OP Gait Assessment Gait Gait Assistance Required: Standby Assistance Assistive Devices Assistive Device None Gait Deviations General Gait Pattern Decreased Stride Length, Decreased Feet Clearance, Festinating,Flexed Trunk, Narrow Based Gait PT-OP-M Strength Start: 09/29/23 17:34 Freq: Status: Active Protocol: Document 09/29/23 11:20 DCW (Rec: 09/29/23 17:53 DCW [id number]) Hip Strength Hip Manual Muscle Testing Right Flexion (L2) 4- Good- Extension (S1) 4 Good Abduction 4+ Good+ Adduction 4+ Good+ External Rotation 4+ Good+ Internal Rotation 4+ Good+ Left Flexion (L2) 4- Good- Extension (S1) 4- Good- Abduction 4+ Good+ Adduction 4+ Good+ External Rotation 4+ Good+ Internal Rotation 4+ Good+ Knee Strength Knee Manual Muscle Testing Right Flexion (S2) 4- Good- Extension (L3) 4+ Good+ Left Flexion (S2) 4- Good- Extension (L3) 4+ Good+ PT-OP-O Vestibular Start: 09/29/23 17:34 Freq: Status: Active Protocol: Document 10/03/23 11:15 DCW (Rec: 10/03/23 12:02 DCW [id number]) Vestibular Assessment Positional Testing [place]-Hallpike Negative Left PT-OP-Q Treatments Start: 09/29/23 17:34 Freq: Status: Active Protocol: Document 01/12/24 12:01 DCW (Rec: 01/12/24 12:43 DCW [id number]) Cardio Equipment Recumbent Elliptical (Biodex) Duration (Minutes) 6 Resistance 6 Seat Position 12 Gym Equipment Shuttle Recovery unilateral squat Resistance 50# (2 navy) bilateral squat Resistance 87# (3 navy) Reps/Time x25 Shuttle Balance Red Details WBOS, Staggered Comments WBOS: EO/EC, Head turns Staggered Neuro Re-Education Treatment Balance Activities Lateral Lunge Details Slider SL squat Equipment // bars SLS Details SLS Equipment // bars tandem walking Details Tandem Stance Equipment //bars near as needed PT-OP-T Assessment and Plan Start: 09/29/23 17:34 Freq: Status: Active Protocol: Document 01/12/24 12:01 DC (Rec: 01/12/24 12:43 [facility] [id number]) Physical Therapy Assessment Impairments Impairments Activity Tolerance,Balance, Functional Activities, Functional Mobility,Gait,ROM, Soft Tissue Mobility,Strength, Vestibular Goals Three Impairment MMT of 4-/5 with bilateral hip and knee flexion Assisted Goal (LTG) Pt to improve hip and knee flexion strength to at least 4 +/5 in order to improve stability and control during gait. LTG Duration 01/31/24 Two Impairment Positive left [place]-Hallpike Business Lawyer Goal (LTG) Pt to exhibit negative positional testing bilaterally 11/10/23 - Mildly positive LTG Duration 01/31/24 One Impairment Pt does not have an appropriate home exercise program Short Term Goal (STG) Pt to be independent and compliant with an appropriate HEP STG Duration 10/30/23 Assessment Summary Assessment Pt did well with today's challenges, hopeful to have procedure scheduled by neurologist STACI to help decrease symptoms. Physical Therapy Plan Frequency and Duration Frequency of Treatment 2x/Week Plan of Care Start Date 11/30/23 Plan of Care End Date 01/31/24 Therapeutic Interventions Therapeutic Interventions Balance Training,Canalithic Repositioning,Home Exercise Program,Manual Therapy, Neuromuscular Re-education, Patient/Caregiver Education, Self-Care/Home Management,Soft Tissue Mobilization, Therapeutic Activities, Therapeutic Exercises, Vestibular Rehabilitation Next Visit Focus/Plan Next Note Type Treatment Note Next Visit Plan Continue gait FWW. Continue dynamic gait and balance for improve community mobility. POC: Balance/gait training, Continue improve sequencing gait with trek poles.
--- NOTE | 2024-01-16 12:44 | PT.OTN ---
Current Diagnoses Polyneuropathy, unspecified (01/16/24) Benign paroxysmal vertigo, left ear (01/16/24) Unsteadiness on feet (01/16/24) Other abnormalities of gait and mobility (01/16/24) Physical Therapy Treatment Note PT-OP-A Visit Information Start: 09/29/23 17:34 Freq: Status: Active Protocol: Document 01/16/24 12:03 DCW (Rec: 01/16/24 12:44 DCW [id number]) Out-Patient Physical Therapy Visit Information Visit Information Visit Type Treatment Note Visit Start Time 12:03 Visit Stop Time 12:45 Visit Number 23 Number of PUBLIC HEALTH SERVICE OFFICER Visits 0 Evaluation Information Evaluation Date 09/29/23 PT-OP-B Current Condition Start: 09/29/23 17:34 Freq: Status: Active Protocol: Document 09/29/23 11:20 DCW (Rec: 09/29/23 17:53 DCW [id number]) Current Condition History of Current Condition Current Complaints Worsening balance, gait, and positional dizziness History of Current Condition Pt is an 82 year old male presenting to skilled therapy due to worsening gait and imbalance. Pt has developed a shuffling, festinating gait pattern. Reports he was initial put on medications and run through tests for Parkinson's, but did not have any response. Reports his PCP now believes it is hydrocephalus, pt is waiting to get in with a Neurologist down in [place], currently scheduled some time in November. In the meantime, pt notes his balance and gait has been worsening at an increased rate . Reports if he attempts to walk across his house, his steps get smaller and smaller until he is nearly at his destination and will occasionally get stuck right before it, not able to get closer. Initiation of movement is typically not an issue. Fatigues very quickly, reports he can bend down and lift a heavier object 3x, but then is too fatigued to continue, and needs to rest for an hour. During subjective history, pt also makes offhand comment about dizziness with position changes, reports he gets dizzy for 10-15 seconds when laying in bed or getting up from bed , or when bending down to pick something up. Has been ongoing for a while. Prior Treatments and Tests Head CT: IMPRESSION: Prominent lateral ventricles, which are mildly larger than in 2018. Although not striking , the imaging findings would be compatible with a mild degree of normal pressure hydrocephalus. No prior territorial infarct can be seen. per Yolis Maciel on 08/29/2023 Treatment Goals Patient/Caregiver Goals Improve gait and balance PT-OP-C Subjective Start: 09/29/23 17:34 Freq: Status: Active Protocol: Document 01/16/24 12:03 DCW (Rec: 01/16/24 12:44 DCW [id number]) OP-PT Subjective Patient Comments Patient Comments About the same. Notes he is still waiting to hear about when he can have his procedure done to reduce CSF pressure. PT-OP-D Balance Start: 09/29/23 17:34 Freq: Status: Active Protocol: Document 10/03/23 11:15 DCW (Rec: 10/03/23 12:02 DCW [id number]) Balance Tests Coon Balance Test Coon Balance Test Score 51/56 Coon Balance Assessment Evaluation Sitting to Standing Ability Independent w/out Hands Unsupported Stance Safely- 2 minutes Sitting Unsupported, Feet on Floor Safely- 2 minutes Standing to Sitting Ability Safely, Minimal Hand Use Transfer Ability Safely, Minimal Hand Use Unsupported Stance- Eyes Closed Supervision, 10 seconds Unsupported Stance- Eyes Open Independent, 1 minute Reaching Forward Standing Safely, 5 inches Pick- Up Object From Floor Independent/Safe Look Behind Shoulder - Standing Shifts Weight Well Turning 360 Degrees Turns Bilateral, < 4 secs Unsupported Stance, Alternating Feet on 4 Steps w/Supervision Stair Unsupported Tandem Stance Achieves Tandem Unilateral Leg Stance Lifts Leg/Holds 5-10 secs Total Score Coon Total Score (out of 56 points) 51 Coon Impairment Rating 1 to 19% Impaired (Score 45-55 ) PT-OP-E Functional Tests Start: 09/29/23 17:34 Freq: Status: Active Protocol: Document 11/30/23 12:00 DCW (Rec: 11/30/23 12:47 DCW [id number]) Functional Tests Dynamic Gait Index (DGI) Score 19/24 DGI Impairment Rating 20 to <40% Impaired (Score 15- 19) PT-OP-G Mobility & Gait Start: 09/29/23 17:53 Freq: Status: Active Protocol: Document 09/29/23 11:20 DCW (Rec: 09/30/23 08:47 DCW [id number]) OP Gait Assessment Gait Gait Assistance Required: Standby Assistance Assistive Devices Assistive Device None Gait Deviations General Gait Pattern Decreased Stride Length, Decreased Feet Clearance, Festinating,Flexed Trunk, Narrow Based Gait PT-OP-M Strength Start: 09/29/23 17:34 Freq: Status: Active Protocol: Document 09/29/23 11:20 DCW (Rec: 09/29/23 17:53 DCW [id number]) Hip Strength Hip Manual Muscle Testing Right Flexion (L2) 4- Good- Extension (S1) 4 Good Abduction 4+ Good+ Adduction 4+ Good+ External Rotation 4+ Good+ Internal Rotation 4+ Good+ Left Flexion (L2) 4- Good- Extension (S1) 4- Good- Abduction 4+ Good+ Adduction 4+ Good+ External Rotation 4+ Good+ Internal Rotation 4+ Good+ Knee Strength Knee Manual Muscle Testing Right Flexion (S2) 4- Good- Extension (L3) 4+ Good+ Left Flexion (S2) 4- Good- Extension (L3) 4+ Good+ PT-OP-O Vestibular Start: 09/29/23 17:34 Freq: Status: Active Protocol: Document 10/03/23 11:15 DCW (Rec: 10/03/23 12:02 DCW [id number]) Vestibular Assessment Positional Testing [place]-Hallpike Negative Left PT-OP-Q Treatments Start: 09/29/23 17:34 Freq: Status: Active Protocol: Document 01/16/24 12:03 DCW (Rec: 01/16/24 12:44 DCW [id number]) Cardio Equipment Recumbent Elliptical (Biodex) Duration (Minutes) 6 Resistance 6 Seat Position 12 Gym Equipment Shuttle Recovery unilateral squat Resistance 62# (2 navy) bilateral squat Resistance 100# (4 navy) Reps/Time x25 Shuttle Balance Red Details WBOS, Staggered Comments WBOS: EO/EC, Head turns Staggered Neuro Re-Education Treatment Balance Activities SLS Details SLS Equipment // bars foam Details NBOS Surface AirEx Comments Head turns, eyes closed tandem walking Details Tandem Stance Equipment // bars near as needed PT-OP-T Assessment and Plan Start: 09/29/23 17:34 Freq: Status: Active Protocol: Document 01/16/24 12:03 DCW (Rec: 01/16/24 12:44 DCW [id number]) Physical Therapy Assessment Impairments Impairments Activity Tolerance,Balance, Functional Activities, Functional Mobility,Gait,ROM, Soft Tissue Mobility,Strength, Vestibular Goals Three Impairment MMT of 4-/5 with bilateral hip and knee flexion Mass Spectroscopist Goal (LTG) Pt to improve hip and knee flexion strength to at least 4 +/5 in order to improve stability and control during gait. LTG Duration 01/31/24 Two Impairment Positive left [place]-Hallpike Mass Spectroscopist Goal (LTG) Pt to exhibit negative positional testing bilaterally 11/10/23 - Mildly positive LTG Duration 01/31/24 One Impairment Pt does not have an appropriate home exercise program Short Term Goal (STG) Pt to be independent and compliant with an appropriate HEP STG Duration 10/30/23 Assessment Summary Assessment Good response to treatment today, showing some improvement with tandem balance and SLS. Continue to work on strength, balance, and gait stability Physical Therapy Plan Frequency and Duration Frequency of Treatment 2x/Week Plan of Care Start Date 11/30/23 Plan of Care End Date 01/31/24 Therapeutic Interventions Therapeutic Interventions Balance Training,Canalithic Repositioning,Home Exercise Program,Manual Therapy, Neuromuscular Re-education, Patient/Caregiver Education, Self-Care/Home Management,Soft Tissue Mobilization, Therapeutic Activities, Therapeutic Exercises, Vestibular Rehabilitation Next Visit Focus/Plan Next Note Type Treatment Note Next Visit Plan Continue gait FWW. Continue dynamic gait and balance for improve community mobility. POC: Balance/gait training, Continue improve sequencing gait with trek poles.
--- NOTE | 2024-01-19 12:01 | PT.OTN ---
Current Diagnoses Polyneuropathy, unspecified (01/19/24) Benign paroxysmal vertigo, left ear (01/19/24) Unsteadiness on feet (01/19/24) Other abnormalities of gait and mobility (01/19/24) Physical Therapy Treatment Note PT-OP-A Visit Information Start: 09/29/23 17:34 Freq: Status: Active Protocol: Document 01/19/24 11:18 DCW (Rec: 01/19/24 12:01 DCW [id number]) Out-Patient Physical Therapy Visit Information Visit Information Visit Type Treatment Note Visit Start Time 11:18 Visit Stop Time 12:00 Visit Number 24 Number of RISK DEVELOPER Visits 0 Evaluation Information Evaluation Date 09/29/23 PT-OP-B Current Condition Start: 09/29/23 17:34 Freq: Status: Active Protocol: Document 09/29/23 11:20 DCW (Rec: 09/29/23 17:53 DCW [id number]) Current Condition History of Current Condition Current Complaints Worsening balance, gait, and positional dizziness History of Current Condition Pt is an 82 year old male presenting to skilled therapy due to worsening gait and imbalance. Pt has developed a shuffling, festinating gait pattern. Reports he was initial put on medications and run through tests for Parkinson's, but did not have any response. Reports his PCP now believes it is hydrocephalus, pt is waiting to get in with a Neurologist down in [place], currently scheduled some time in November. In the meantime, pt notes his balance and gait has been worsening at an increased rate . Reports if he attempts to walk across his house, his steps get smaller and smaller until he is nearly at his destination and will occasionally get stuck right before it, not able to get closer. Initiation of movement is typically not an issue. Fatigues very quickly, reports he can bend down and lift a heavier object 3x, but then is too fatigued to continue, and needs to rest for an hour. During subjective history, pt also makes offhand comment about dizziness with position changes, reports he gets dizzy for 10-15 seconds when laying in bed or getting up from bed , or when bending down to pick something up. Has been ongoing for a while. Prior Treatments and Tests Head CT: IMPRESSION: Prominent lateral ventricles, which are mildly larger than in 2018. Although not striking , the imaging findings would be compatible with a mild degree of normal pressure hydrocephalus. No prior territorial infarct can be seen. per Yolis Maciel on 08/29/2023 Treatment Goals Patient/Caregiver Goals Improve gait and balance PT-OP-C Subjective Start: 09/29/23 17:34 Freq: Status: Active Protocol: Document 01/19/24 11:18 DCW (Rec: 01/19/24 12:01 DCW [id number]) OP-PT Subjective Patient Comments Patient Comments Whatever we're doing seems to be working, I'm feeling stronger. Does note that his back has been tiring out when standing too long. PT-OP-D Balance Start: 09/29/23 17:34 Freq: Status: Active Protocol: Document 10/03/23 11:15 DCW (Rec: 10/03/23 12:02 DCW [id number]) Balance Tests Coon Balance Test Coon Balance Test Score 51/56 Coon Balance Assessment Evaluation Sitting to Standing Ability Independent w/out Hands Unsupported Stance Safely- 2 minutes Sitting Unsupported, Feet on Floor Safely- 2 minutes Standing to Sitting Ability Safely, Minimal Hand Use Transfer Ability Safely, Minimal Hand Use Unsupported Stance- Eyes Closed Supervision, 10 seconds Unsupported Stance- Eyes Open Independent, 1 minute Reaching Forward Standing Safely, 5 inches Pick- Up Object From Floor Independent/Safe Look Behind Shoulder - Standing Shifts Weight Well Turning 360 Degrees Turns Bilateral, < 4 secs Unsupported Stance, Alternating Feet on 4 Steps w/Supervision Stair Unsupported Tandem Stance Achieves Tandem Unilateral Leg Stance Lifts Leg/Holds 5-10 secs Total Score Coon Total Score (out of 56 points) 51 Coon Impairment Rating 1 to 19% Impaired (Score 45-55 ) PT-OP-E Functional Tests Start: 09/29/23 17:34 Freq: Status: Active Protocol: Document 11/30/23 12:00 DCW (Rec: 11/30/23 12:47 DCW [id number]) Functional Tests Dynamic Gait Index (DGI) Score 1924 DGI Impairment Rating 20 to <40% Impaired (Score 15- 19) PT-OP-G Mobility & Gait Start: 09/29/23 17:53 Freq: Status: Active Protocol: Document 09/29/23 11:20 DCW (Rec: 09/30/23 08:47 DCW [id number]) OP Gait Assessment Gait Gait Assistance Required: Standby Assistance Assistive Devices Assistive Device None Gait Deviations General Gait Pattern Decreased Stride Length, Decreased Feet Clearance, Festinating,Flexed Trunk, Narrow Based Gait PT-OP-M Strength Start: 09/29/23 17:34 Freq: Status: Active Protocol: Document 09/29/23 11:20 DCW (Rec: 09/29/23 17:53 DCW [id number]) Hip Strength Hip Manual Muscle Testing Right Flexion (L2) 4- Good- Extension (S1) 4 Good Abduction 4+ Good+ Adduction 4+ Good+ External Rotation 4+ Good+ Internal Rotation 4+ Good+ Left Flexion (L2) 4- Good- Extension (S1) 4- Good- Abduction 4+ Good+ Adduction 4+ Good+ External Rotation 4+ Good+ Internal Rotation 4+ Good+ Knee Strength Knee Manual Muscle Testing Right Flexion (S2) 4- Good- Extension (L3) 4+ Good+ Left Flexion (S2) 4- Good- Extension (L3) 4+ Good+ PT-OP-O Vestibular Start: 09/29/23 17:34 Freq: Status: Active Protocol: Document 10/03/23 11:15 DCW (Rec: 10/03/23 12:02 DCW [id number]) Vestibular Assessment Positional Testing Lynda-Hallpike Negative Left PT-OP-Q Treatments Start: 09/29/23 17:34 Freq: Status: Active Protocol: Document 01/19/24 11:18 DCW (Rec: 01/19/24 12:01 ORW [id number]) Cardio Equipment Recumbent Elliptical ([employer]) Duration (Minutes) 6 Resistance 6 Seat Position 12 Gym Equipment Shuttle Balance Red Details WBOS, Staggered Comments WBOS: EO/EC, Head turns Staggered Therapeutic Exercises Sidelying Exercises Open Book Sidelying Exercise Name Open Book Side bilateral Sitting Exercises Trunk Rotation Sitting Exercise Name Resisted trunk rotation Side bilateral Resistance Lv 3 Trunk Extension Sitting Exercise Name Resisted trunk extension Resistance double Lv 3 Standing Exercises Pallof Press Standing Exercise Name Pallof Press Side bilateral Resistance double [place] PT-OP-T Assessment and Plan Start: 09/29/23 17:34 Freq: Status: Active Protocol: Document 01/19/24 11:18 DCW (Rec: 01/19/24 12:01 ORW [id number]) Physical Therapy Assessment Impairments Impairments Activity Tolerance,Balance, Functional Activities, Functional Mobility,Gait,ROM, Soft Tissue Mobility,Strength, Vestibular Goals Three Impairment MMT of 4-/5 with bilateral hip and knee flexion [place] Worker Goal (LTG) Pt to improve hip and knee flexion strength to at least 4 +/5 in order to improve stability and control during gait. LTG Duration 01/31/24 Two Impairment Positive left Lynda-Hallpike Fdc Goal (LTG) Pt to exhibit negative positional testing bilaterally 11/10/23 - Mildly positive LTG Duration 01/31/24 One Impairment Pt does not have an appropriate home exercise program Short Term Goal (STG) Pt to be independent and compliant with an appropriate HEP STG Duration 10/30/23 Assessment Summary Assessment Pt tolerated new trunk/lumbar exercises well, continues to feel like there has been improvement with functional mobility. Scheduled for temporary cath placement for CSF Feb 19 Physical Therapy Plan Frequency and Duration Frequency of Treatment 2x/Week Plan of Care Start Date 11/30/23 Plan of Care End Date 01/31/24 Therapeutic Interventions Therapeutic Interventions Balance Training,Canalithic Repositioning,Home Exercise Program,Manual Therapy, Neuromuscular Re-education, Patient/Caregiver Education, Self-Care/Home Management,Soft Tissue Mobilization, Therapeutic Activities, Therapeutic Exercises, Vestibular Rehabilitation Next Visit Focus/Plan Next Note Type Treatment Note Next Visit Plan Continue gait FWW. Continue dynamic gait and balance for improve community mobility. POC: Balance/gait training, Continue improve sequencing gait with trek poles.
--- NOTE | 2024-01-30 11:16 | PT.OTN ---
Current Diagnoses Polyneuropathy, unspecified (01/30/24) Benign paroxysmal vertigo, left ear (01/30/24) Unsteadiness on feet (01/30/24) Other abnormalities of gait and mobility (01/30/24) Physical Therapy Treatment Note PT-OP-A Visit Information Start: 09/29/23 17:34 Freq: Status: Active Protocol: Document 01/30/24 10:38 SP (Rec: 01/30/24 11:15 SP [id number]) Out-Patient Physical Therapy Visit Information Visit Information Visit Type Treatment Note Visit Start Time 10:38 Visit Stop Time 11:16 Visit Number 25 Number of PRINTED CIRCUIT BOARDS CONTACT PRINTER Visits 1 Evaluation Information Evaluation Date 09/29/23 PT-OP-B Current Condition Start: 09/29/23 17:34 Freq: Status: Active Protocol: Document 09/29/23 11:20 DCW (Rec: 09/29/23 17:53 DCW [id number]) Current Condition History of Current Condition Current Complaints Worsening balance, gait, and positional dizziness History of Current Condition Pt is an 82 year old male presenting to skilled therapy due to worsening gait and imbalance. Pt has developed a shuffling, festinating gait pattern. Reports he was initial put on medications and run through tests for Parkinson's, but did not have any response. Reports his PCP now believes it is hydrocephalus, pt is waiting to get in with a Neurologist down in [place], currently scheduled some time in November. In the meantime, pt notes his balance and gait has been worsening at an increased rate . Reports if he attempts to walk across his house, his steps get smaller and smaller until he is nearly at his destination and will occasionally get stuck right before it, not able to get closer. Initiation of movement is typically not an issue. Fatigues very quickly, reports he can bend down and lift a heavier object 3x, but then is too fatigued to continue, and needs to rest for an hour. During subjective history, pt also makes offhand comment about dizziness with position changes, reports he gets dizzy for 10-15 seconds when laying in bed or getting up from bed , or when bending down to pick something up. Has been ongoing for a while. Prior Treatments and Tests Head CT: IMPRESSION: Prominent lateral ventricles, which are mildly larger than in 2018. Although not striking , the imaging findings would be compatible with a mild degree of normal pressure hydrocephalus. No prior territorial infarct can be seen. per Yolis Maciel on 08/29/2023 Treatment Goals Patient/Caregiver Goals Improve gait and balance PT-OP-C Subjective Start: 09/29/23 17:34 Freq: Status: Active Protocol: Document 01/30/24 10:38 SP (Rec: 01/30/24 11:15 SP [id number]) OP-PT Subjective Patient Comments Patient Comments Pt reports getting tired of the dizziness with his hydrocephalis. Has an appt for spinal tap and assessment at admission at [facility]. He reports does have some day that dizziness is gone then other day feels plugged gain. Pt reports has seen some strengthening since started PT. PT-OP-D Balance Start: 09/29/23 17:34 Freq: Status: Active Protocol: Document 10/03/23 11:15 DCW (Rec: 10/03/23 12:02 DCW [id number]) Balance Tests Coon Balance Test Coon Balance Test Score 51/56 Coon Balance Assessment Evaluation Sitting to Standing Ability Independent w/out Hands Unsupported Stance Safely- 2 minutes Sitting Unsupported, Feet on Floor Safely- 2 minutes Standing to Sitting Ability Safely, Minimal Hand Use Transfer Ability Safely, Minimal Hand Use Unsupported Stance- Eyes Closed Supervision, 10 seconds Unsupported Stance- Eyes Open Independent, 1 minute Reaching Forward Standing Safely, 5 inches Pick- Up Object From Floor Independent/Safe Look Behind Shoulder - Standing Shifts Weight Well Turning 360 Degrees Turns Bilateral, < 4 secs Unsupported Stance, Alternating Feet on 4 Steps w/Supervision Stair Unsupported Tandem Stance Achieves Tandem Unilateral Leg Stance Lifts Leg/Holds 5-10 secs Total Score Coon Total Score (out of 56 points) 51 Coon Impairment Rating 1 to 19% Impaired (Score 45-55 ) PT-OP-E Functional Tests Start: 09/29/23 17:34 Freq: Status: Active Protocol: Document 11/30/23 12:00 DCW (Rec: 11/30/23 12:47 DCW [id number]) Functional Tests Dynamic Gait Index (DGI) Score 24 DGI Impairment Rating 20 to <40% Impaired (Score 15- 19) PT-OP-G Mobility & Gait Start: 09/29/23 17:53 Freq: Status: Active Protocol: Document 09/29/23 11:20 DCW (Rec: 09/30/23 08:47 DCW [id number]) OP Gait Assessment Gait Gait Assistance Required: Standby Assistance Assistive Devices Assistive Device None Gait Deviations General Gait Pattern Decreased Stride Length, Decreased Feet Clearance, Festinating,Flexed Trunk, Narrow Based Gait PT-OP-M Strength Start: 09/29/23 17:34 Freq: Status: Active Protocol: Document 09/29/23 11:20 DCW (Rec: 09/29/23 17:53 DCW [id number]) Hip Strength Hip Manual Muscle Testing Right Flexion (L2) 4- Good- Extension (S1) 4 Good Abduction 4+ Good+ Adduction 4+ Good+ External Rotation 4+ Good+ Internal Rotation 4+ Good+ Left Flexion (L2) 4- Good- Extension (S1) 4- Good- Abduction 4+ Good+ Adduction 4+ Good+ External Rotation 4+ Good+ Internal Rotation 4+ Good+ Knee Strength Knee Manual Muscle Testing Right Flexion (S2) 4- Good- Extension (L3) 4+ Good+ Left Flexion (S2) 4- Good- Extension (L3) 4+ Good+ PT-OP-O Vestibular Start: 09/29/23 17:34 Freq: Status: Active Protocol: Document 10/03/23 11:15 DCW (Rec: 10/03/23 12:02 DCW [id number]) Vestibular Assessment Positional Testing Quentin-Hallpike Negative Left PT-OP-Q Treatments Start: 09/29/23 17:34 Freq: Status: Active Protocol: Document 01/30/24 10:38 SP (Rec: 01/30/24 11:15 SP [id number]) Gym Equipment Shuttle Recovery unilateral squat Resistance 62# (2 navy) Reps/Time x20 bilateral squat Resistance 100# (4 navy) Reps/Time x25 Therapeutic Exercises Sidelying Exercises Open Book Sidelying Exercise Name Open Book- HEP reviewed Side bilateral Reps/Minutes x5 each side Comments cued slow, keep legs still, pnfree range reported Sitting Exercises Trunk Rotation Sitting Exercise Name Resisted trunk rotation Side bilateral Resistance Lv 3 Reps/Minutes x10 Comments good form Trunk Extension Sitting Exercise Name Resisted trunk extension (band under feet), flexion therapist anc, shld ext Side bilateral Resistance double Lv 3 Reps/Minutes x10 each Comments good tiring effort STS Sitting Exercise Name STS Resistance arms across chest Equipment Used 18 mat table Reps/Minutes 10 Comments good form Standing Exercises Pallof Press Standing Exercise Name Pallof Press Side bilateral Resistance single green Reps/Minutes x10 PT-OP-T Assessment and Plan Start: 09/29/23 17:34 Freq: Status: Active Protocol: Document 01/30/24 10:38 SP (Rec: 01/30/24 11:15 SP [id number]) Physical Therapy Assessment Goals Three Impairment MMT of 4-/5 with bilateral hip and knee flexion Usp Goal (LTG) Pt to improve hip and knee flexion strength to at least 4 +/5 in order to improve stability and control during gait. LTG Duration 01/31/24 Two Impairment Positive left Lynda-Hallpike Usp Goal (LTG) Pt to exhibit negative positional testing bilaterally 11/10/23 - Mildly positive LTG Duration 01/31/24 One Impairment Pt does not have an appropriate home exercise program Short Term Goal (STG) Pt to be independent and compliant with an appropriate HEP STG Duration 10/30/23 Assessment Summary Assessment Pt needs time between change of positions before continue acitivity to allow dizziness stabilize need sit still to allow my gyros to settle. Good postural corrections and midline stability during resisted ther ex for core engagement. Continued cues for elongaged posture, proximity to 4WW and bigger stride during gait to allow safety during gait. Physical Therapy Plan Frequency and Duration Frequency of Treatment 2x/Week Plan of Care Start Date 11/30/23 Plan of Care End Date 01/31/24 Therapeutic Interventions Therapeutic Interventions Balance Training,Canalithic Repositioning,Home Exercise Program,Manual Therapy, Neuromuscular Re-education, Patient/Caregiver Education, Self-Care/Home Management,Soft Tissue Mobilization, Therapeutic Activities, Therapeutic Exercises, Vestibular Rehabilitation Next Visit Focus/Plan Next Note Type Progress Note Next Visit Plan Updated POC next tx. Continue gait FWW. Continue dynamic gait and balance for improve community mobility. POC: Balance/gait training, Continue improve sequencing gait with trek poles.
--- NOTE | 2024-02-01 14:33 | PT.OTN ---
Current Diagnoses Polyneuropathy, unspecified (02/01/24) Benign paroxysmal vertigo, left ear (02/01/24) Unsteadiness on feet (02/01/24) Other abnormalities of gait and mobility (02/01/24) Physical Therapy Treatment Note PT-OP-A Visit Information Start: 09/29/23 17:34 Freq: Status: Active Protocol: Document 02/01/24 13:45 DCW (Rec: 02/01/24 14:32 DCW [id number]) Out-Patient Physical Therapy Visit Information Visit Information Visit Type Treatment Note Visit Start Time 13:45 Visit Stop Time 14:30 Visit Number 26 Number of BEAUTY SALES ADVISOR Visits 0 Evaluation Information Evaluation Date 09/29/23 PT-OP-B Current Condition Start: 09/29/23 17:34 Freq: Status: Active Protocol: Document 09/29/23 11:20 DCW (Rec: 09/29/23 17:53 DCW [id number]) Current Condition History of Current Condition Current Complaints Worsening balance, gait, and positional dizziness History of Current Condition Pt is an 82 year old male presenting to skilled therapy due to worsening gait and imbalance. Pt has developed a shuffling, festinating gait pattern. Reports he was initial put on medications and run through tests for Parkinson's, but did not have any response. Reports his PCP now believes it is hydrocephalus, pt is waiting to get in with a Neurologist down in [place], currently scheduled some time in November. In the meantime, pt notes his balance and gait has been worsening at an increased rate . Reports if he attempts to walk across his house, his steps get smaller and smaller until he is nearly at his destination and will occasionally get stuck right before it, not able to get closer. Initiation of movement is typically not an issue. Fatigues very quickly, reports he can bend down and lift a heavier object 3x, but then is too fatigued to continue, and needs to rest for an hour. During subjective history, pt also makes offhand comment about dizziness with position changes, reports he gets dizzy for 10-15 seconds when laying in bed or getting up from bed , or when bending down to pick something up. Has been ongoing for a while. Prior Treatments and Tests Head CT: IMPRESSION: Prominent lateral ventricles, which are mildly larger than in 2018. Although not striking , the imaging findings would be compatible with a mild degree of normal pressure hydrocephalus. No prior territorial infarct can be seen. per Yolis Maciel on 08/29/2023 Treatment Goals Patient/Caregiver Goals Improve gait and balance PT-OP-C Subjective Start: 09/29/23 17:34 Freq: Status: Active Protocol: Document 02/01/24 13:45 DCW (Rec: 02/01/24 14:32 DCW [id number]) OP-PT Subjective Patient Comments Patient Comments Pt has a telehealth visit with the nurse on the to prep for pre-surgery. PT-OP-D Balance Start: 09/29/23 17:34 Freq: Status: Active Protocol: Document 02/01/24 13:45 DCW (Rec: 02/01/24 14:09 DCW [id number]) Coon Balance Assessment Evaluation Sitting to Standing Ability Independent w/out Hands Unsupported Stance Safely- 2 minutes Sitting Unsupported, Feet on Floor Safely- 2 minutes Standing to Sitting Ability Safely, Minimal Hand Use Transfer Ability Safely, Minimal Hand Use Unsupported Stance- Eyes Closed Supervision, 10 seconds Unsupported Stance- Eyes Open Independent, 1 minute Reaching Forward Standing Confidently, 10 inches Pick- Up Object From Floor Independent/Safe Look Behind Shoulder - Standing Shifts Weight Well Turning 360 Degrees Turns Bilateral, < 4 secs Unsupported Stance, Alternating Feet on (I)- 8 Steps in 20 secs Stair Unsupported Tandem Stance Holds Tandem- 30 seconds Unilateral Leg Stance Lifts Leg/Holds > 3 secs Total Score Coon Total Score (out of 56 points) 52 Coon Impairment Rating 1 to 19% Impaired (Score 45-55 ) PT-OP-E Functional Tests Start: 09/29/23 17:34 Freq: Status: Active Protocol: Document 02/01/24 13:45 DCW (Rec: 02/01/24 14:09 DCW [id number]) Functional Tests Dynamic Gait Index (DGI) Score 24 DGI Impairment Rating 1 to <20% Impaired (Score 20- 23) PT-OP-G Mobility & Gait Start: 09/29/23 17:53 Freq: Status: Active Protocol: Document 02/01/24 13:45 DCW (Rec: 02/01/24 14:09 DCW [id number]) OP Gait Assessment Gait Gait Assistance Required: Standby Assistance Assistive Devices Assistive Device 4 Wheeled Walker Gait Deviations General Gait Pattern Decreased Stride Length, Decreased Feet Clearance, Festinating,Flexed Trunk, Narrow Based Gait PT-OP-M Strength Start: 09/29/23 17:34 Freq: Status: Active Protocol: Document 02/01/24 13:45 DCW (Rec: 02/01/24 14:09 DCW [id number]) Hip Strength Hip Manual Muscle Testing Right Flexion (L2) 4+ Good+ Extension (S1) 4 Good Abduction 5 Normal Adduction 4+ Good+ External Rotation 4+ Good+ Internal Rotation 4+ Good+ Left Flexion (L2) 4+ Good+ Extension (S1) 4- Good- Abduction 5 Normal Adduction 4+ Good+ External Rotation 4+ Good+ Internal Rotation 4+ Good+ Knee Strength Knee Manual Muscle Testing Right Flexion (S2) 4 Good Extension (L3) 4+ Good+ Left Flexion (S2) 4 Good Extension (L3) 4+ Good+ PT-OP-O Vestibular Start: 09/29/23 17:34 Freq: Status: Active Protocol: Document 10/03/23 11:15 DCW (Rec: 10/03/23 12:02 DCW [id number]) Vestibular Assessment Positional Testing Lynda-Hallpike Negative Left PT-OP-Q Treatments Start: 09/29/23 17:34 Freq: Status: Active Protocol: Document 02/01/24 13:45 DCW (Rec: 02/01/24 14:32 DCW [id number]) Gym Equipment Shuttle Balance Red Details WBOS, Staggered Comments WBOS: EO/EC, Head turns Staggered PT-OP-T Assessment and Plan Start: 09/29/23 17:34 Freq: Status: Active Protocol: Document 02/01/24 13:45 DCW (Rec: 02/01/24 14:32 DCW [id number]) Physical Therapy Assessment Impairments Impairments Activity Tolerance,Balance, Functional Activities, Functional Mobility,Gait,ROM, Soft Tissue Mobility,Strength, Vestibular Goals Three Impairment MMT of 4-/5 with bilateral hip and knee flexion Fci Goal (LTG) Pt to improve hip and knee flexion strength to at least 4 +/5 in order to improve stability and control during gait. LTG Duration 02/21/24 Two Impairment Positive left Lynda-Hallpike Fci Goal (LTG) Pt to exhibit negative positional testing bilaterally 11/10/23 - Mildly positive LTG Duration 02/21/24 One Impairment Pt does not have an appropriate home exercise program Short Term Goal (STG) Pt to be independent and compliant with an appropriate HEP STG Duration Met Assessment Summary Assessment Pt improving in all areas, static and dynamic balance showing improvement with Coon and DGI scores. Pt will likely discharge after the next few weeks due to his upcoming procedure at [facility]. Pt understands that he will need a new referral due to change in medical status. Physical Therapy Plan Frequency and Duration Frequency of Treatment 2x/Week Plan of Care Start Date 02/01/24 Plan of Care End Date 03/02/24 Therapeutic Interventions Therapeutic Interventions Balance Training,Canalithic Repositioning,Home Exercise Program,Manual Therapy, Neuromuscular Re-education, Patient/Caregiver Education, Self-Care/Home Management,Soft Tissue Mobilization, Therapeutic Activities, Therapeutic Exercises, Vestibular Rehabilitation Next Visit Focus/Plan Next Note Type Treatment Note Next Visit Plan Continue gait FWW. Continue dynamic gait and balance for improve community mobility. POC: Balance/gait training, Continue improve sequencing gait with trek poles.
--- NOTE | 2024-02-01 14:33 | PT.OPPOC ---
Physical, Occupational & Speech Therapy At [facility] Current Diagnoses Polyneuropathy, unspecified (02/01/24) Benign paroxysmal vertigo, left ear (02/01/24) Unsteadiness on feet (02/01/24) Other abnormalities of gait and mobility (02/01/24) Visit Care Team Role Provider Type Donnell Mascorro MD Attending Provider Physician Family Provider Primary Care Provider Referring Provider Specialty: Internal Medicine Address: [address] [place] [address], [facility] Email: [email or web address] Plan Of Care PT-OP-B Current Condition Start: 09/29/23 17:34 Freq: Status: Active Protocol: Document 09/29/23 11:20 DCW (Rec: 09/29/23 17:53 DCW [id number]) Current Condition History of Current Condition Current Complaints Worsening balance, gait, and positional dizziness History of Current Condition Pt is an 82 year old male presenting to skilled therapy due to worsening gait and imbalance. Pt has developed a shuffling, festinating gait pattern. Reports he was initial put on medications and run through tests for Parkinson's, but did not have any response. Reports his PCP now believes it is hydrocephalus, pt is waiting to get in with a Neurologist down in [place], currently scheduled some time in November. In the meantime, pt notes his balance and gait has been worsening at an increased rate . Reports if he attempts to walk across his house, his steps get smaller and smaller until he is nearly at his destination and will occasionally get stuck right before it, not able to get closer. Initiation of movement is typically not an issue. Fatigues very quickly, reports he can bend down and lift a heavier object 3x, but then is too fatigued to continue, and needs to rest for an hour. During subjective history, pt also makes offhand comment about dizziness with position changes, reports he gets dizzy for 10-15 seconds when laying in bed or getting up from bed , or when bending down to pick something up. Has been ongoing for a while. Prior Treatments and Tests Head CT: IMPRESSION: Prominent lateral ventricles, which are mildly larger than in 2018. Although not striking , the imaging findings would be compatible with a mild degree of normal pressure hydrocephalus. No prior territorial infarct can be seen. per Yolis Maciel. on 08/29/2023 Treatment Goals Patient/Caregiver Goals Improve gait and balance PT-OP-T Assessment and Plan Start: 09/29/23 17:34 Freq: Status: Active Protocol: Document 02/01/24 13:45 DCW (Rec: 02/01/24 14:32 DCW [id number]) Physical Therapy Assessment Impairments Impairments Activity Tolerance,Balance, Functional Activities, Functional Mobility,Gait,ROM, Soft Tissue Mobility,Strength, Vestibular Goals Three Impairment MMT of 4-/5 with bilateral hip and knee flexion Mcfp Goal (LTG) Pt to improve hip and knee flexion strength to at least 4 +/5 in order to improve stability and control during gait. LTG Duration 02/21/24 Two Impairment Positive left Lynda-Hallpike Herb Grower Goal (LTG) Pt to exhibit negative positional testing bilaterally 11/10/23 - Mildly positive LTG Duration 02/21/24 One Impairment Pt does not have an appropriate home exercise program Short Term Goal (STG) Pt to be independent and compliant with an appropriate HEP STG Duration Met Assessment Summary Assessment Pt improving in all areas, static and dynamic balance showing improvement with Coon and DGI scores. Pt will likely discharge after the next few weeks due to his upcoming procedure at [facility]. Pt understands that he will need a new referral due to change in medical status. Physical Therapy Plan Frequency and Duration Frequency of Treatment 2x/Week Plan of Care Start Date 02/01/24 Plan of Care End Date 03/02/24 Therapeutic Interventions Therapeutic Interventions Balance Training,Canalithic Repositioning,Home Exercise Program,Manual Therapy, Neuromuscular Re-education, Patient/Caregiver Education, Self-Care/Home Management,Soft Tissue Mobilization, Therapeutic Activities, Therapeutic Exercises, Vestibular Rehabilitation Next Visit Focus/Plan Next Note Type Treatment Note Next Visit Plan Continue gait FWW. Continue dynamic gait and balance for improve community mobility. POC: Balance/gait training, Continue improve sequencing gait with trek poles. Plan of Care Dates Plan of Care Start Date 02/01/24 Plan of Care End Date 03/02/24 Electronically Signed by: Jarrod Chiu, PT 02/01/24 [id number] If you are in agreement with this Plan of Care, please return a signed and dated copy. I have reviewed this Plan of Care and certify that the skilled therapy services above are required to meet the patient?s needs. Physician Signature Date Printed Name and Credentials Clinical Instructor Signature Printed Name and Credentials
--- NOTE | 2024-02-10 14:27 | PT.OTN ---
Current Diagnoses Polyneuropathy, unspecified (02/10/24) Benign paroxysmal vertigo, left ear (02/10/24) Unsteadiness on feet (02/10/24) Other abnormalities of gait and mobility (02/10/24) Physical Therapy Treatment Note PT-OP-A Visit Information Start: 09/29/23 17:34 Freq: Status: Active Protocol: Document 02/10/24 13:47 SP (Rec: 02/10/24 14:29 SP [id number]) Out-Patient Physical Therapy Visit Information Visit Information Visit Type Treatment Note Visit Start Time 13:47 Visit Stop Time 14:27 Visit Number 27 Number of ENGINEERING INSTRUCTOR Visits 1 Evaluation Information Evaluation Date 09/29/23 PT-OP-B Current Condition Start: 09/29/23 17:34 Freq: Status: Active Protocol: Document 09/29/23 11:20 DCW (Rec: 09/29/23 17:53 DCW [id number]) Current Condition History of Current Condition Current Complaints Worsening balance, gait, and positional dizziness History of Current Condition Pt is an 82 year old male presenting to skilled therapy due to worsening gait and imbalance. Pt has developed a shuffling, festinating gait pattern. Reports he was initial put on medications and run through tests for Parkinson's, but did not have any response. Reports his PCP now believes it is hydrocephalus, pt is waiting to get in with a Neurologist down in [place], currently scheduled some time in November. In the meantime, pt notes his balance and gait has been worsening at an increased rate . Reports if he attempts to walk across his house, his steps get smaller and smaller until he is nearly at his destination and will occasionally get stuck right before it, not able to get closer. Initiation of movement is typically not an issue. Fatigues very quickly, reports he can bend down and lift a heavier object 3x, but then is too fatigued to continue, and needs to rest for an hour. During subjective history, pt also makes offhand comment about dizziness with position changes, reports he gets dizzy for 10-15 seconds when laying in bed or getting up from bed , or when bending down to pick something up. Has been ongoing for a while. Prior Treatments and Tests Head CT: IMPRESSION: Prominent lateral ventricles, which are mildly larger than in 2018. Although not striking , the imaging findings would be compatible with a mild degree of normal pressure hydrocephalus. No prior territorial infarct can be seen. per Yolis Maciel on 08/29/2023 Treatment Goals Patient/Caregiver Goals Improve gait and balance PT-OP-C Subjective Start: 09/29/23 17:34 Freq: Status: Active Protocol: Document 02/10/24 13:47 SP (Rec: 02/10/24 14:29 SP [id number]) OP-PT Subjective Patient Comments Patient Comments Pt reports is headed down to [place] to visit daughter and they usually stop periodically PT-OP-D Balance Start: 09/29/23 17:34 Freq: Status: Active Protocol: Document 02/01/24 13:45 DCW (Rec: 02/01/24 14:09 DCW [id number]) Coon Balance Assessment Evaluation Sitting to Standing Ability Independent w/out Hands Unsupported Stance Safely- 2 minutes Sitting Unsupported, Feet on Floor Safely- 2 minutes Standing to Sitting Ability Safely, Minimal Hand Use Transfer Ability Safely, Minimal Hand Use Unsupported Stance- Eyes Closed Supervision, 10 seconds Unsupported Stance- Eyes Open Independent, 1 minute Reaching Forward Standing Confidently, 10 inches Pick- Up Object From Floor Independent/Safe Look Behind Shoulder - Standing Shifts Weight Well Turning 360 Degrees Turns Bilateral, < 4 secs Unsupported Stance, Alternating Feet on (I)- 8 Steps in 20 secs Stair Unsupported Tandem Stance Holds Tandem- 30 seconds Unilateral Leg Stance Lifts Leg/Holds > 3 secs Total Score Coon Total Score (out of 56 points) 52 Coon Impairment Rating 1 to 19% Impaired (Score 45-55 ) PT-OP-E Functional Tests Start: 09/29/23 17:34 Freq: Status: Active Protocol: Document 02/01/24 13:45 DCW (Rec: 02/01/24 14:09 DCW [id number]) Functional Tests Dynamic Gait Index (DGI) Score DGI Impairment Rating 1 to <20% Impaired (Score 20- 23) PT-OP-G Mobility & Gait Start: 09/29/23 17:53 Freq: Status: Active Protocol: Document 02/01/24 13:45 DCW (Rec: 02/01/24 14:09 DCW [id number]) OP Gait Assessment Gait Gait Assistance Required: Standby Assistance Assistive Devices Assistive Device 4 Wheeled Walker Gait Deviations General Gait Pattern Decreased Stride Length, Decreased Feet Clearance, Festinating,Flexed Trunk, Narrow Based Gait PT-OP-M Strength Start: 09/29/23 17:34 Freq: Status: Active Protocol: Document 02/01/24 13:45 DCW (Rec: 02/01/24 14:09 DCW [id number]) Hip Strength Hip Manual Muscle Testing Right Flexion (L2) 4+ Good+ Extension (S1) 4 Good Abduction 5 Normal Adduction 4+ Good+ External Rotation 4+ Good+ Internal Rotation 4+ Good+ Left Flexion (L2) 4+ Good+ Extension (S1) 4- Good- Abduction 5 Normal Adduction 4+ Good+ External Rotation 4+ Good+ Internal Rotation 4+ Good+ Knee Strength Knee Manual Muscle Testing Right Flexion (S2) 4 Good Extension (L3) 4+ Good+ Left Flexion (S2) 4 Good Extension (L3) 4+ Good+ PT-OP-O Vestibular Start: 09/29/23 17:34 Freq: Status: Active Protocol: Document 10/03/23 11:15 DCW (Rec: 10/03/23 12:02 DCW [id number]) Vestibular Assessment Positional Testing [place]-Hallpike Negative Left PT-OP-Q Treatments Start: 09/29/23 17:34 Freq: Status: Active Protocol: Document 02/10/24 13:47 SP (Rec: 02/10/24 14:29 SP [id number]) Cardio Equipment Recumbent Stepper (Sci-Fit) Duration (Minutes) 8 Resistance 3.5 Seat Position 14- big strides- 0.71 miles Other BLEs /s more than /c BUEs- 43- 48 RPMs Gym Equipment Shuttle Balance Red Details WBOS, Staggered, Lateral Comments WBOS: EO Head turns, EC 5-7 sec Staggered: EO HTs Lateral: wt shift, stationary CGA- 20%A as needed, cues for direction wt shift stability Gait Training Gait Activity 4WW Device Used 4WW Level of Assistance SBA- S Distance/Duration throughout clinic various areas Treatment Focus safe mgt Comments cued taller posture with body more proximal to 4WW, increased stride and foot clearance to allow safety, tends to shuffle step and positioned out front. Neuro Re-Education Treatment Balance Activities hurdles Details Hurdles: fwd, side-stepping Equipment AROM receiprocal step, 4# AW step to>receiprocal Comments cued tall posture, foot clearance, soft LE advancement improves with reps. TKE L quad L side stepping for stability during RLE mobility. PT-OP-T Assessment and Plan Start: 09/29/23 17:34 Freq: Status: Active Protocol: Document 02/10/24 13:47 SP (Rec: 02/10/24 14:29 SP [id number]) Physical Therapy Assessment Goals Three Impairment MMT of 4-/5 with bilateral hip and knee flexion Fci Goal (LTG) Pt to improve hip and knee flexion strength to at least 4 +/5 in order to improve stability and control during gait. LTG Duration 02/21/24 Two Impairment Positive left [place]-Hallpike Furniture Salesperson Goal (LTG) Pt to exhibit negative positional testing bilaterally 11/10/23 - Mildly positive LTG Duration 02/21/24 One Impairment Pt does not have an appropriate home exercise program Short Term Goal (STG) Pt to be independent and compliant with an appropriate HEP STG Duration Met Assessment Summary Assessment Pt improved balance activities with less trunk support, cues for more upright posture, slower pacing, TKE L>R and eccentric soft LE advancement during alix stepping step to then progressed to receiprocal stepping without UE support, no LE foot catching alix last 2 laps. Pt improved postural and bigger steps and more proximal to 4WW end tx with reviewed education. Physical Therapy Plan Frequency and Duration Frequency of Treatment 2x/Week Plan of Care Start Date 02/01/24 Plan of Care End Date 03/02/24 Therapeutic Interventions Therapeutic Interventions Balance Training,Canalithic Repositioning,Home Exercise Program,Manual Therapy, Neuromuscular Re-education, Patient/Caregiver Education, Self-Care/Home Management,Soft Tissue Mobilization, Therapeutic Activities, Therapeutic Exercises, Vestibular Rehabilitation Next Visit Focus/Plan Next Note Type Treatment Note Next Visit Plan Continue gait FWW vs 4WW. Continue dynamic gait and balance for improve community mobility. POC: Balance/gait training, Continue improve sequencing gait with trek poles.
--- NOTE | 2024-02-14 10:03 | PT-OP ANOTE ---
Pt NS [phone] appt, CONCRETE [employer]LOAT [employer] called him, forgot look at his calendar for appt. Pt stated has his procedure 02/20, asked if can be seen another day. [employer]CR[employer]E [employer]LO[employer]ER saw PT opening at 1430 today and pt agreed to attend, will be last appt and PT will complete DC. Pt verbalized understanding will have to get another referral to attend.
--- NOTE | 2024-02-14 14:57 | PT.OTN ---
Current Diagnoses Polyneuropathy, unspecified (02/14/24) Benign paroxysmal vertigo, left ear (02/14/24) Unsteadiness on feet (02/14/24) Other abnormalities of gait and mobility (02/14/24) Physical Therapy Treatment Note PT-OP-A Visit Information Start: 09/29/23 17:34 Freq: Status: Active Protocol: Document 02/14/24 14:31 DCW (Rec: 02/14/24 14:57 DCW [id number]) Out-Patient Physical Therapy Visit Information Visit Information Visit Type Discharge Summary Visit Start Time 14:31 Visit Stop Time 15:00 Visit Number 28 Number of HELP DESK TECHNICIAN Visits 0 Evaluation Information Evaluation Date 09/29/23 PT-OP-B Current Condition Start: 09/29/23 17:34 Freq: Status: Active Protocol: Document 09/29/23 11:20 DCW (Rec: 09/29/23 17:53 DCW [id number]) Current Condition History of Current Condition Current Complaints Worsening balance, gait, and positional dizziness History of Current Condition Pt is an 82 year old male presenting to skilled therapy due to worsening gait and imbalance. Pt has developed a shuffling, festinating gait pattern. Reports he was initial put on medications and run through tests for Parkinson's, but did not have any response. Reports his PCP now believes it is hydrocephalus, pt is waiting to get in with a Neurologist down in [place], currently scheduled some time in November. In the meantime, pt notes his balance and gait has been worsening at an increased rate . Reports if he attempts to walk across his house, his steps get smaller and smaller until he is nearly at his destination and will occasionally get stuck right before it, not able to get closer. Initiation of movement is typically not an issue. Fatigues very quickly, reports he can bend down and lift a heavier object 3x, but then is too fatigued to continue, and needs to rest for an hour. During subjective history, pt also makes offhand comment about dizziness with position changes, reports he gets dizzy for 10-15 seconds when laying in bed or getting up from bed , or when bending down to pick something up. Has been ongoing for a while. Prior Treatments and Tests Head CT: IMPRESSION: Prominent lateral ventricles, which are mildly larger than in 2018. Although not striking , the imaging findings would be compatible with a mild degree of normal pressure hydrocephalus. No prior territorial infarct can be seen. per Yolis Maciel on 08/29/2023 Treatment Goals Patient/Caregiver Goals Improve gait and balance PT-OP-C Subjective Start: 09/29/23 17:34 Freq: Status: Active Protocol: Document 02/14/24 14:31 DCW (Rec: 02/14/24 14:57 DCW [id number]) OP-PT Subjective Patient Comments Patient Comments Pt notes he has been distracted, his daughter unfortunately over the weekend after a ron with cancer. PT-OP-D Balance Start: 09/29/23 17:34 Freq: Status: Active Protocol: Document 02/01/24 13:45 DCW (Rec: 02/01/24 14:09 DCW [id number]) Coon Balance Assessment Evaluation Sitting to Standing Ability Independent w/out Hands Unsupported Stance Safely- 2 minutes Sitting Unsupported, Feet on Floor Safely- 2 minutes Standing to Sitting Ability Safely, Minimal Hand Use Transfer Ability Safely, Minimal Hand Use Unsupported Stance- Eyes Closed Supervision, 10 seconds Unsupported Stance- Eyes Open Independent, 1 minute Reaching Forward Standing Confidently, 10 inches Pick- Up Object From Floor Independent/Safe Look Behind Shoulder - Standing Shifts Weight Well Turning 360 Degrees Turns Bilateral, < 4 secs Unsupported Stance, Alternating Feet on (I)- 8 Steps in 20 secs Stair Unsupported Tandem Stance Holds Tandem- 30 seconds Unilateral Leg Stance Lifts Leg/Holds > 3 secs Total Score Coon Total Score (out of 56 points) 52 Coon Impairment Rating 1 to 19% Impaired (Score 45-55 ) PT-OP-E Functional Tests Start: 09/29/23 17:34 Freq: Status: Active Protocol: Document 02/01/24 13:45 DCW (Rec: 02/01/24 14:09 DCW [id number]) Functional Tests Dynamic Gait Index (DGI) Score DGI Impairment Rating 1 to <20% Impaired (Score 20- 23) PT-OP-G Mobility & Gait Start: 09/29/23 17:53 Freq: Status: Active Protocol: Document 02/01/24 13:45 DCW (Rec: 02/01/24 14:09 DCW [id number]) OP Gait Assessment Gait Gait Assistance Required: Standby Assistance Assistive Devices Assistive Device 4 Wheeled Walker Gait Deviations General Gait Pattern Decreased Stride Length, Decreased Feet Clearance, Festinating,Flexed Trunk, Narrow Based Gait PT-OP-M Strength Start: 09/29/23 17:34 Freq: Status: Active Protocol: Document 02/01/24 13:45 DCW (Rec: 02/01/24 14:09 DCW [id number]) Hip Strength Hip Manual Muscle Testing Right Flexion (L2) 4+ Good+ Extension (S1) 4 Good Abduction 5 Normal Adduction 4+ Good+ External Rotation 4+ Good+ Internal Rotation 4+ Good+ Left Flexion (L2) 4+ Good+ Extension (S1) 4- Good- Abduction 5 Normal Adduction 4+ Good+ External Rotation 4+ Good+ Internal Rotation 4+ Good+ Knee Strength Knee Manual Muscle Testing Right Flexion (S2) 4 Good Extension (L3) 4+ Good+ Left Flexion (S2) 4 Good Extension (L3) 4+ Good+ PT-OP-O Vestibular Start: 09/29/23 17:34 Freq: Status: Active Protocol: Document 10/03/23 11:15 DCW (Rec: 10/03/23 12:02 DCW [id number]) Vestibular Assessment Positional Testing Lynda-Hallpike Negative Left PT-OP-Q Treatments Start: 09/29/23 17:34 Freq: Status: Active Protocol: Document 02/14/24 14:31 DCW (Rec: 02/14/24 14:57 DCW [id number]) Therapeutic Exercises Supine Exercises Piriformis Supine Exercise Name Piriformis stretch Side bilateral Single KtC Supine Exercise Name Single KtC Side bilateral Hip Flexor Stretch Supine Exercise Name Hip Flexor stretch Side bilateral Hamstring Stretch Supine Exercise Name Hamstring stretch Side bilateral PT-OP-T Assessment and Plan Start: 09/29/23 17:34 Freq: Status: Active Protocol: Document 02/14/24 14:31 DCW (Rec: 02/14/24 14:57 DCW [id number]) Physical Therapy Assessment Impairments Impairments Activity Tolerance,Balance, Functional Activities, Functional Mobility,Gait,ROM, Soft Tissue Mobility,Strength, Vestibular Goals Three Impairment MMT of 4-/5 with bilateral hip and knee flexion Chcf Goal (LTG) Pt to improve hip and knee flexion strength to at least 4 +/5 in order to improve stability and control during gait. LTG Duration 02/21/24 Two Impairment Positive left [place]-Hallpike Hot Mill Worker Goal (LTG) Pt to exhibit negative positional testing bilaterally 11/10/23 - Mildly positive LTG Duration 02/21/24 One Impairment Pt does not have an appropriate home exercise program Short Term Goal (STG) Pt to be independent and compliant with an appropriate HEP STG Duration Met Assessment Summary Assessment Pt discharging following today 's visit in prep for his procedure/spinal tap. Pt understands that if his spinal tap is successful, he will likely undergo a stent placement for hydrocephalus, and may require a new referral to return to PT following change in medical status. Physical Therapy Plan Frequency and Duration Frequency of Treatment 2x/Week Plan of Care Start Date 02/01/24 Plan of Care End Date 03/02/24 Therapeutic Interventions Therapeutic Interventions Balance Training,Canalithic Repositioning,Home Exercise Program,Manual Therapy, Neuromuscular Re-education, Patient/Caregiver Education, Self-Care/Home Management,Soft Tissue Mobilization, Therapeutic Activities, Therapeutic Exercises, Vestibular Rehabilitation Next Visit Focus/Plan Next Note Type Treatment Note Next Visit Plan Continue gait FWW vs 4WW. Continue dynamic gait and balance for improve community mobility. POC: Balance/gait training, Continue improve sequencing gait with trek poles.
== END 2024-02-20 13:47 | disposition home or self-care (01) ==
LOC: PHYS 14:30
PROVIDERS: Family Provider Internal Medicine; PCP Internal Medicine; Referring Provider Internal Medicine; Visit Provider Internal Medicine
DX: R26.81 Unsteadiness on feet (principal); G62.9 Polyneuropathy, unspecified; H81.12 Benign paroxysmal vertigo, left ear; R26.89 Other abnormalities of gait and mobility
CPT/HCPCS: 95992; 97110; 97112; 97116; 97140; 97163; 97530

== ENCOUNTER 2024-02-25 11:01 | Emergency (ER) | payer MEDICARE, OTHER, SELFPAY ==
[2023-08-01 15:24] VITALS: BMI 20.6
[2024-02-25] VITALS (8 sets, daily range): BP systolic 114–146; BP diastolic 58–68; PULSE 48–72; RESP 18; TEMP 36.1; O2SAT 96–100; BMI 20.6
[2024-02-25] MEDS: SODIUM CHLORIDE 0.9% 1,000 ML 1000 ML IV (11:54)
[2024-02-25 11:56] LABS: Add Manual Diff / Slide Review NO; Basophils Absolute Auto 0 /uL (0-100); Basophils Percent Auto 0.6 % (0-2); Eosinophils Absolute Auto 300 /uL (0-450); Eosinophils Percent Auto 4.5 % (2-4); Hematocrit 43.5 % (41-53); Hemoglobin 14.7 g/dL (13.5-17.5); Lymphocytes Absolute Auto 1600 /uL (1100-4500); Lymphocytes Percent Auto 21.3 % (25-40); Mean Corpuscular HGB Conc 33.7 % (30-36); Mean Corpuscular Hemoglobin 30.6 PG (26-34); Mean Corpuscular Volume 90.9 fL (80-100); Monocytes Absolute Auto 900 /uL (0-900); Monocytes Percent Auto 11.7 % (3-14); Neutrophils Absolute Auto 4600 /uL (1500-7000); Neutrophils Percent Auto 61.9 % (50-75); Platelet Count 276 X10^3/uL (150-400); Red Blood Cell Count 4.79 X10^6/uL (4.5-5.9); Red Cell Distribution Width 14.2 % (11.6-14.8); White Blood Cell Count 7.5 X10^3/uL (4.5-11.0)
[2024-02-25 12:03] LABS: INR 0.9 (0.9-1.3); Prothrombin Time 10.7 SECONDS (9.4-12.5)
[2024-02-25 12:06] LABS: PTT Partial Thromboplastin Tim 37 SECONDS (25.1-36.5)
--- NOTE | 2024-02-25 12:24 | PC.NURSE ---
Patient was at [facility] on Tuesday and had lumbar puncture, patient reports having a headache that started during the procedure and continued on until today. Patient reports no fever, n/v, vision changes, laying down makes the pain a 1/10, standing back up makes it go to 5/10
[2024-02-25 12:30] LABS: Alanine Aminotransferase 17 IU/L (<50); Albumin 4.3 g/dL (3.5-5.0); Albumin Globulin Ratio 1.5 (1.0-2.8); Alkaline Phosphatase 82 U/L (38-126); Aspartate Aminotransferase 21 IU/L (17-59); BUN Creatinine Ratio 15.7 (6-22); Bilirubin Total 0.8 mg/dL (0.2-1.3); Blood Urea Nitrogen 14 mg/dL (9-20); Calcium 9.8 mg/dL (8.4-10.2); Carbon Dioxide 24 mmol/L (22-32); Chloride 105 mmol/L (98-107); Estimated Glomerular Filt Rate > 60 mL/min (>60); Globulin 2.8 g/dL (1.7-4.1); Glucose 100 mg/dL (80-110); HEMOLYSIS < 15 (0-50); Potassium 3.7 mmol/L (3.4-5.1); Sodium 135 mmol/L (137-145); Total Protein 7.1 g/dL (6.3-8.2)
--- NOTE | 2024-02-25 13:37 | ED.HA ---
HPI - Headache General Chief Complaint: Headache Stated Complaint: Positional headache, sent by Time Seen by Provider: 02/25/24 13:14 Mode of arrival: Ambulatory History of Present Illness HPI Narrative: Patient is a 83-year-old male who was recently discharged by [facility] on 02/22/2024 he was admitted on February 19 during his admission he had workup for gait impairment and normal pressure hydrocephalus. During hospitalization he underwent lumbar spinal procedure under fluoroscopic guidance with catheter insertion on the . The drain. Complicated by mild headache that improved with Tylenol. On February 21 the drain trial was complete gait with re-evaluated which did show improvement, although variation in gait. Today he is presenting with ongoing headache. It is very positional significantly better and actually gone when he lays flat however whenever he sits up or walks he has a headache. He reports that his gait is significantly worse. states that gait is not any worse than what it was before the procedure. They are now speaking with Neurosurgery about shunt. It sounds like they have an appointment next week. Patient has not fallen. He is multiple walkers he furniture surfs in order to not fall down. Related Data Home Medications Medication Instructions Recorded Confirmed cyanocobalamin (vitamin B-12) 500 1,000 mcg PO QAM ##0 04/13/16 12/26/23 mcg tablet (Vitamin B-12) vitamins A,C,E-titl-yclqkp 4,296 1 cap PO BID 05/19/18 12/26/23 mcg-226 mg-90 mg capsule (PreserVision AREDS) albuterol sulfate 90 mcg/actuation 2 puff inhalation Q6H PRN 05/27/21 12/26/23 aerosol inhaler Shortness Of Breath cholecalciferol (vitamin D3) 25 25 mcg PO DAILY 09/27/22 12/26/23 mcg (1,000 unit) capsule budesonide intranasal DAILY 08/01/23 12/26/23 cetirizine 10 mg tablet (Aller-Katie) 10 mg PO Q3W 08/01/23 12/26/23 Previous Rx's Medication Instructions Recorded budesonide 180 mcg/actuation 1 inh inhalation DAILY #1 ea 08/08/23 breath activated powder inhaler (Pulmicort Flexhaler) Parking Permit... #1 ea 12/26/23 sumatriptan succinate 25 mg tablet 25 mg PO Q2-4H PRN migraine 02/25/24 (Imitrex) headache #10 tabs Allergies Allergy/AdvReac Type Severity Reaction Status Date / Time rosuvastatin AdvReac Mild breast pain Verified 02/25/24 11:24 adhesive tape AdvReac Rash Verified 02/25/24 11:24 Patient History Medical History Carotid atherosclerosis NPH (normal pressure hydrocephalus) Gait instability BPH without obstruction/lower urinary tract symptoms B12 deficiency Polyneuropathy Allergic rhinitis due to pollen Mild intermittent asthma Ventral hernia Surgical History History of transurethral resection of prostate History of colectomy Family History Mother Hypertension Father Parkinsons Social History household members: spouse Smoking Status: Never smoker alcohol intake: current Smoking Status: Never smoker alcohol intake frequency: 0-2 drinks per day Alcohol type: hard liquor Substance Use Type: does not use Exam Initial Vital Signs Initial Vital Signs: Vital Signs Temperature 97.0 F L 02/25/24 11:24 Pulse Rate 72 02/25/24 11:24 Respiratory Rate 18 02/25/24 11:24 Blood Pressure 133/64 02/25/24 11:24 Pulse Oximetry 98 02/25/24 11:24 Oxygen Delivery Method Room Air 02/25/24 11:24 GENERAL: Alert very pleasant 83-year-old male and in no acute distress. HEENT: Head atraumatic,EOMI, pupils reactive, face symmetric, moist mucous membranes CARDIOVASCULAR: Regular rate and rhythm without murmurs, rubs or gallops. RESPIRATORY: Breath sounds equal bilaterally, no wheezes rales or rhonchi. ABDOMEN: Soft, nontender. Normoactive bowel sounds all 4 quadrants. No guarding or rebound. EXTREMITIES: Normal range of motion, no clubbing or edema. Neurovascularly intact NEUROLOGICAL: Alert and oriented x4.Normal gait and speech. Cranial nerves II through XII grossly intact. Good pikhpx-dx-xkqy, good hgpb-sz-kxqa, strength equal bilaterally, no dysarthria or aphasia, decreased sensation bilaterally no visual changes, no facial droop SKIN: Warm, dry, no laceration, no petechiae, no rashes or lesions. Course Orders Ordered: ED Orders 02/25/24 11:45 Complete Blood Count AUTO DIFF Stat Comprehensive Metabolic Panel Stat PTT [PTT Partial Thromboplastin Angel] Stat Prothrombin Time INR Stat 02/25/24 13:52 CT head/brain wo con Stat Discontinued Medications Sodium Chloride (Normal Saline 0.9%) 1,000 mls @ 1,000 mls/hr IV BOLUS ONE Stop: 02/25/24 12:33 Last Infusion: 02/25/24 12:47 Dose: Infused Documented By: Admin: 02/25/24 11:54 Dose: 1,000 mls/hr Documented By: BRITTANI Ketorolac Tromethamine (Ketorolac 30 Mg/Ml Vial) 15 mg IV NOW ONE Stop: 02/25/24 13:53 Last Admin: 02/25/24 13:57 Dose: 15 mg Documented By: BRITTANI Sumatriptan Succinate (Sumatriptan 6 Mg/0.5 Ml Vial) 6 mg SUBCUT NOW ONE Stop: 02/25/24 14:07 Last Admin: 02/25/24 14:20 Dose: 6 mg Documented By: BRITTANI Vital Signs Vital signs: Vital Signs - 8 hr 02/25/24 11:24 02/25/24 11:44 02/25/24 11:44 Temperature 97.0 F L Pulse Rate 72 51 L Respiratory Rate 18 Blood Pressure 133/64 141/65 H Pulse Oximetry 98 96 Oxygen Delivery Method Room Air Room Air 02/25/24 12:30 02/25/24 12:30 02/25/24 13:00 Temperature Pulse Rate 49 L 51 L Respiratory Rate Blood Pressure 114/59 L Pulse Oximetry 97 98 Oxygen Delivery Method Room Air 02/25/24 13:00 02/25/24 14:05 02/25/24 14:06 Temperature Pulse Rate 50 L Respiratory Rate Blood Pressure 122/58 L 128/63 Pulse Oximetry 97 Oxygen Delivery Method 02/25/24 14:06 02/25/24 14:30 02/25/24 14:30 Temperature Pulse Rate 53 L 48 L Respiratory Rate Blood Pressure 140/66 Pulse Oximetry 100 100 Oxygen Delivery Method Room Air 02/25/24 15:00 02/25/24 15:00 Temperature Pulse Rate 51 L Respiratory Rate Blood Pressure 146/68 H Pulse Oximetry 99 Oxygen Delivery Method MDM - Headache Lab Data 02/25/24 11:45 02/25/24 11:45 Labs: Lab Results 02/25/24 Range/Units 11:45 WBC 7.5 (4.5-11.0) X10^3/uL RBC 4.79 (4.5-5.9) X10^6/uL Hgb 14.7 (13.5-17.5) g/dL Hct 43.5 (41-53) % MCV 90.9 (80-100) fL MCH 30.6 (26-34) PG MCHC 33.7 (30-36) % RDW 14.2 (11.6-14.8) % Plt Count 276 (150-400) X10^3/uL Neut % (Auto) 61.9 (50-75) % Lymph % (Auto) 21.3 L (25-40) % Rush % (Auto) 11.7 (3-14) % Eos % (Auto) 4.5 H (2-4) % Baso % (Auto) 0.6 (0-2) % Neut # (Auto) 4600 (2978-3455) /uL Lymph # (Auto) 1600 (8102-4311) /uL Rush # (Auto) 900 (0-900) /uL Eos # (Auto) 300 (0-450) /uL Baso # (Auto) 0 (0-100) /uL PT 10.7 (9.4-12.5) SECONDS INR 0.9 (0.9-1.3) APTT 37 H (25.1-36.5) SECONDS Sodium 135 L (137-145) mmol/L Potassium 3.7 (3.4-5.1) mmol/L Chloride 105 (98-107) mmol/L Carbon Dioxide 24 (22-32) mmol/L BUN 14 (9-20) mg/dL Creatinine 0.89 (0.66-1.25) mg/dL Estimated GFR > 60 (>60) mL/min BUN/Creatinine Ratio 15.7 (6-22) Glucose 100 (80-110) mg/dL Calcium 9.8 (8.4-10.2) mg/dL Total Bilirubin 0.8 (0.2-1.3) mg/dL AST 21 (17-59) IU/L ALT 17 (<50) IU/L Alkaline Phosphatase 82 (38-126) U/L Total Protein 7.1 (6.3-8.2) g/dL Albumin 4.3 (3.5-5.0) g/dL Globulin 2.8 (1.7-4.1) g/dL Albumin/Globulin Ratio 1.5 (1.0-2.8) Urine Dip Bedside Urine Glucose Negative Bedside Urine Bilirubin - Negative Bedside Urine Ketone - Negative Urine Specific Cruger 1.015 Bedside Urine Occult Blood - Negative Bedside Urine pH 6.0 Bedside Urine Protein - Negative Bedside Urine Urobilinogen - Negative Bedside Urine Nitrite - Negative Bedside Urine Leukocytes - Negative Esterase Imaging Data CT scan - head: Radiologist's Impression: PROCEDURE: CT HEAD/BRAIN WO CON INDICATIONS: gait issue NPH TECHNIQUE: Noncontrast 4.5 mm thick angled axial sections acquired from the foramen magnum to the vertex, with coronal and sagittal reformats. For radiation dose reduction, the following was used: automated exposure control, adjustment of mA and/or kV according to patient size. COMPARISON: [facility], CT, CT HEAD/BRAIN WO CON, 08/29/2023, 12:20. FINDINGS: CSF spaces: Stable ventriculomegaly. Incidental persistent cavum septum pellucidum et vergae noted. Brain: No midline shift. No intracranial masses or hemorrhage. Geronimo-white matter interface is normal. Atherosclerotic vascular calcification noted in the cavernous segments of both internal carotid arteries. Skull and face: Calvarium and visualized facial bones are intact, without suspicious lesions. Sinuses: Visualized sinuses and mastoids are clear. IMPRESSION: Stable ventriculomegaly No intracranial hemorrhage or mass effect. Approved by: Kt Adkins M.D. on 02/25/2024 at 13:28 [facility] Narrative Medical decision making narrative: [facility] CC: Headache gait disturbance Complicating co-morbidities: Chronic ongoing gait disturbance, evaluated normal pressure hydrocephalus Data collected from: patient previous records Medical records reviewed: Testing [facility] is inconclusive per patient. I have reviewed records from [facility] myself. Differential considered: Post spinal headache, epidural hematoma, normal pressure hydrocephalus with increased ventriculomegaly Exam documented above, pertinent findings include: Shuffling gait no ataxia mild memory impairment Lab Test results independently reviewed as above. Pertinent findings: CBC WBC 7.5 hemoglobin 14.7 CMP shows a sodium of 135 chloride 105 carbon dioxide 24 creatinine 0.89 Other labs within normal limits Imaging studies independently reviewed: Head CT stable ventriculomegaly Consultations: 1410 AFIA Rothman recommend Imitrex caffeine will do a blood patch if still needed, currently in OR case She came down to the ED to evaluate patient herself. At that time Imitrex seem to be working did not feel like blood patch was indicated Treatments: 1 L IV fluid Toradol Re-evaluations: Patient ambulated to the restroom with a walker which is typical for him. Complaining of headache. Discussion: 83-year-old male presenting today with post lumbar spinal headache. It is very positional consistent with a lumbar spinal headache. It is worse when he sits up. He was given a L of IV fluids Toradol and Imitrex. He ultimately did have some relief. I talked with anesthesia about possible blood patch however did not feel like that was indicated at this time. Patient's gait seems to be back to what it was prior to the lumbar drain which is to be expected. The have an outpatient follow-up appointment with neurosurgery soon Head CT is stable blood work is overall reassuring. Patient is at his baseline. Feels comfortable going home Discharge Plan Departure Patient Disposition: Home Clinical Impression: Headache, spinal, postoperative Instructions: DI for Post-Spinal Puncture Headache Activity Restrictions/Additional Instructions: *You have been diagnosed with post spinal headache *What to do: At this time please follow-up with neurosurgery at [facility] for further evaluation. See today today is stable Please stay hydrated Be sure to drink caffeine *Continue to take medications as directed Imitrex 25 mg x1 if having headache, may repeat after at least 2 hours you not exceed more than 100 mg 24 hour period Tylenol 650 mg every 4-6 hours if needed for headache *Follow up with your primary care provider in 2-3 days or call [phone] Follow-up with neurosurgery as scheduled *Return to ER if you should have increased difficulty walking falls confusion worsening or any new, worsening or concerning symptoms Prescriptions: New sumatriptan succinate [Imitrex] 25 mg tablet 25 mg PO Q2-4H PRN (Reason: migraine headache) Qty: 10 0RF Rx Instructions: 1 tablet may repeat x1 after at least 2 hours may gave 100 mg in a 24 hours No Action vitamins A,C,P-dcqs-futywj [PreserVision AREDS] 14,320-226-200 sfkb-zz-dcfo capsule 1 cap PO BID cyanocobalamin (vitamin B-12) [Vitamin B-12] 500 MCG tablet 1,000 mcg PO QAM Qty: 0 Pulmicort Flexhaler 180 mcg/actuation aerosol powdr breath activated 1 inh INHALATION DAILY Qty: 1 3RF budesonide intranasal DAILY Rx Instructions: Nasal rinse with budesonide 0.6 mg packet. cetirizine [Aller-Katie] 10 mg tablet 10 mg PO Q3W (DME) Parking Permit... See Rx Instructions .Route .MEDSUPPLY Qty: 1 0RF Rx Instructions: As directed cholecalciferol (vitamin D3) 25 mcg (1,000 unit) capsule 25 mcg PO DAILY albuterol sulfate 90 mcg/actuation HFA aerosol inhaler 2 puff inhalation Q6H PRN (Reason: Shortness Of Breath) Referrals: Donnell Mascorro MD [Primary Care Provider] - Stand Alone Forms: Patient Portal/API
--- NOTE | 2024-02-25 13:52 | DI.CT.S_ITS ---
PROCEDURE: CT HEAD/BRAIN WO CON INDICATIONS: gait issue NPH TECHNIQUE: Noncontrast 4.5 mm thick angled axial sections acquired from the foramen magnum to the vertex, with coronal and sagittal reformats. For radiation dose reduction, the following was used: automated exposure control, adjustment of mA and/or kV according to patient size. COMPARISON: [facility], CT, CT HEAD/BRAIN WO CON, 08/29/2023, 12:20. FINDINGS: CSF spaces: Stable ventriculomegaly. Incidental persistent cavum septum pellucidum et vergae noted. Brain: No midline shift. No intracranial masses or hemorrhage. Geronimo-white matter interface is normal. Atherosclerotic vascular calcification noted in the cavernous segments of both internal carotid arteries. Skull and face: Calvarium and visualized facial bones are intact, without suspicious lesions. Sinuses: Visualized sinuses and mastoids are clear. IMPRESSION: Stable ventriculomegaly No intracranial hemorrhage or mass effect. Approved by: Kt Adkins M.D. on 02/25/2024 at 13:28
[2024-02-25] MEDS: KETOROLAC 30 MG/ML VIAL 15 MG IV (13:57)
[2024-02-25] MEDS: SUMAtriptan 6 MG/0.5 ML VIAL SUBCUT (14:20)
--- NOTE | 2024-02-25 15:08 | PM.CN ---
History of Present Illness Consult details Chief complaint: Positional headache, sent by Narrative: pt with lumbar drain placed at . removed . developed positional occipital HARDIN. 07/02 sitting. lying. discussed r/b/a to EBP. agree to try more conservative measures (increase fluid intake, increase caffeine intake, NSAIDs, imitrex). education provided. reassured patient that PDPH resolve on their own with time as well. for more information see MD Mejia's notes. Meds Home Medications and Allergies Home Medications Medication Instructions Recorded Confirmed Type cyanocobalamin (vitamin B-12) 500 1,000 mcg PO QAM ##0 04/13/16 12/26/23 History mcg tablet (Vitamin B-12) vitamins A,C,X-loca-frrser 4,296 1 cap PO BID 05/19/18 12/26/23 History mcg-226 mg-90 mg capsule (PreserVision AREDS) albuterol sulfate 90 mcg/actuation 2 puff inhalation Q6H PRN 05/27/21 12/26/23 History aerosol inhaler Shortness Of Breath cholecalciferol (vitamin D3) 25 25 mcg PO DAILY 09/27/22 12/26/23 History mcg (1,000 unit) capsule budesonide intranasal DAILY 08/01/23 12/26/23 History cetirizine 10 mg tablet (Aller-Katie) 10 mg PO Q3W 08/01/23 12/26/23 History budesonide 180 mcg/actuation 1 inh inhalation DAILY #1 ea 08/08/23 12/26/23 Rx breath activated powder inhaler (Pulmicort Flexhaler) Parking Permit... #1 ea 12/26/23 12/26/23 Rx sumatriptan succinate 25 mg tablet 25 mg PO Q2-4H PRN migraine 02/25/24 Rx (Imitrex) headache #10 tabs Allergies Allergy/AdvReac Type Severity Reaction Status Date / Time rosuvastatin AdvReac Mild breast pain Verified 02/25/24 11:24 adhesive tape AdvReac Rash Verified 02/25/24 11:24 Exam Vital Signs (past 8 hours): - 02/25/24 11:24 02/25/24 11:44 02/25/24 11:44 Temperature 97.0 F L Pulse Rate 72 51 L Respiratory Rate 18 Blood Pressure 133/64 141/65 H Pulse Oximetry 98 96 Oxygen Delivery Method Room Air Room Air 02/25/24 12:30 02/25/24 12:30 02/25/24 13:00 Temperature Pulse Rate 49 L 51 L Respiratory Rate Blood Pressure 114/59 L Pulse Oximetry 97 98 Oxygen Delivery Method Room Air 02/25/24 13:00 02/25/24 14:05 02/25/24 14:06 Temperature Pulse Rate 50 L Respiratory Rate Blood Pressure 122/58 L 128/63 Pulse Oximetry 97 Oxygen Delivery Method 02/25/24 14:06 02/25/24 14:30 02/25/24 14:30 Temperature Pulse Rate 53 L 48 L Respiratory Rate Blood Pressure 140/66 Pulse Oximetry 100 100 Oxygen Delivery Method Room Air 02/25/24 15:00 02/25/24 15:00 Temperature Pulse Rate 51 L Respiratory Rate Blood Pressure 146/68 H Pulse Oximetry 99 Oxygen Delivery Method Oxygen Delivery Method Room Air Objective Labs 02/25/24 11:45 02/25/24 11:45 Labs: Laboratory Results - last 24 hr 02/25/24 11:45 WBC 7.5 RBC 4.79 Hgb 14.7 Hct 43.5 MCV 90.9 MCH 30.6 MCHC 33.7 RDW 14.2 Plt Count 276 Neut % (Auto) 61.9 Lymph % (Auto) 21.3 L [place] % (Auto) 11.7 Eos % (Auto) 4.5 H Baso % (Auto) 0.6 Neut # (Auto) 4600 Lymph # (Auto) 1600 [place] # (Auto) 900 Eos # (Auto) 300 Baso # (Auto) 0 PT 10.7 INR 0.9 APTT 37 H Sodium 135 L Potassium 3.7 Chloride 105 Carbon Dioxide 24 BUN 14 Creatinine 0.89 Estimated GFR > 60 BUN/Creatinine Ratio 15.7 Glucose 100 Calcium 9.8 Total Bilirubin 0.8 AST 21 ALT 17 Alkaline Phosphatase 82 Total Protein 7.1 Albumin 4.3 Globulin 2.8 Albumin/Globulin Ratio 1.5 PFSH Medical History Carotid atherosclerosis NPH (normal pressure hydrocephalus) Gait instability BPH without obstruction/lower urinary tract symptoms B12 deficiency Polyneuropathy Allergic rhinitis due to pollen Mild intermittent asthma Ventral hernia Surgical History History of transurethral resection of prostate History of colectomy Family History Mother Hypertension Father Parkinsons Social History household members: spouse Tobacco & Substance Use Smoking Status: Never smoker alcohol intake: current Assessment & Plan Time-Based Coding :: [TOTAL MINUTES] spent with patient and on the chart (including review of chart, obtaining history, exam, reviewing outside data, placing orders, documenting exam and treatment plan, and counseling patient) on [DATE].
== END 2024-02-25 15:20 | disposition home or self-care (01) ==
PROVIDERS: Emergency Provider Emergency Medicine; Family Provider Internal Medicine; PCP Internal Medicine
DX: G97.1 Other reaction to spinal and lumbar puncture (principal); R51.9 Headache, unspecified
CPT/HCPCS: 36415; 70450; 80053; 81003; 85025; 85610; 85730; 96361; 96372; 96374; 99284; J1885; J3030

== ENCOUNTER 2024-06-19 15:15 | Outpatient (RCR) | payer MEDICARE, OTHER, SELFPAY ==
[2023-08-01 15:24] VITALS: BMI 20.6
--- NOTE | 2024-05-01 17:00 | PT.OIE ---
Current Diagnoses Polyneuropathy, unspecified (05/01/24) (Idiopathic) normal pressure hydrocephalus (05/01/24) Unsteadiness on feet (05/01/24) Past Medical History (Last Reviewed 03/28/24 @ 05:57 by Donnell Mascorro MD) Allergic rhinitis due to pollen B12 deficiency BPH without obstruction/lower urinary tract symptoms Carotid atherosclerosis Gait instability Mild intermittent asthma NPH (normal pressure hydrocephalus) Polyneuropathy Ventral hernia Past Surgical History (Last Reviewed 03/28/24 @ 05:57 by Donnell Mascorro MD) History of colectomy History of transurethral resection of prostate Visit Care Team Role Provider Type Donnell Mascorro MD Attending Provider Physician Family Provider Primary Care Provider Referring Provider Specialty: Internal Medicine Address: [address] [place] [address], [facility] Email: [email or web address] Physical Therapy Initial Evaluation PT-OP-A Visit Information Start: 05/01/24 17:08 Freq: Status: Active Protocol: Document 05/01/24 16:20 DCW (Rec: 05/01/24 17:49 DCW [id number]) Out-Patient Physical Therapy Visit Information Visit Information Visit Type Initial Evaluation Visit Start Time 16:20 Visit Stop Time 17:00 Visit Number 1 Number of UTILITY HAND Visits 0 Evaluation Information Evaluation Date 05/01/24 PT-OP-B Current Condition Start: 05/01/24 17:08 Freq: Status: Active Protocol: Document 05/01/24 16:20 DCW (Rec: 05/02/24 09:43 DCW [id number]) Current Condition History of Current Condition Current Complaints Decreased balance, festinating gait History of Current Condition Pt is an 83 year old male presenting to skilled therapy with declining balance and fenstinating gait. Pt was originally thought to have Parkinson's, had a trial of L- dopa, which had no effect. DDx was eventually changed to potential normal pressure hydrocephalus. Was treated at that facility for the same symptoms September-Jan earlier this year, and discharged prior to attempted treatment for Hydrocephalus in [place]. Pt received a spinal tap that slowly drained for three days to determine if the decreased in CSF helped symptoms. Pt notes that he and his thought he did a little better, but following the procedure, he was fairly debilitated with a headache and was not up moving around, so was told the results were inconclusive and he is unsure of the plan going forward. Pt was hoping for a stent placement. Currently, symptoms have returned to baseline, with fenstinating gait, decreased activity tolerance, and poor dynamic balance, although pt denies any falls. Notes some days he is exhausted and spends the day in bed, other days are better. PT-OP-C Subjective Start: 05/01/24 17:08 Freq: Status: Active Protocol: Document 05/01/24 16:20 DCW (Rec: 05/01/24 17:49 DCW [id number]) OP-PT Subjective Patient Comments Patient Comments I think I'm worse now that I was last time I was in. PT-OP-D Balance Start: 05/01/24 17:08 Freq: Status: Active Protocol: Document 05/01/24 16:20 DCW (Rec: 05/01/24 17:49 DCW [id number]) OP-PT Balance Assessment Standing Balance Static Standing Balance Ability Normal Dynamic Standing Balance Ability Fair Device Used 4WW Balance Tests Coon Balance Test Coon Balance Test Score 51/56 Coon Impairment Rating 1 to 19% Impaired (Score 45-55 ) Coon Balance Assessment Evaluation Sitting to Standing Ability Independent w/out Hands Unsupported Stance Safely- 2 minutes Sitting Unsupported, Feet on Floor Safely- 2 minutes Standing to Sitting Ability Safely, Minimal Hand Use Transfer Ability Safely, Minimal Hand Use Unsupported Stance- Eyes Closed Supervision, 10 seconds Unsupported Stance- Eyes Open Supervision to maintain Reaching Forward Standing Safely, 5 inches Pick- Up Object From Floor Independent/Safe Look Behind Shoulder - Standing Shifts Weight Well Turning 360 Degrees Turns , < 4 secs Unsupported Stance, Alternating Feet on (I)- 8 Steps in 20 secs Stair Unsupported Tandem Stance Achieves Tandem Unilateral Leg Stance Lifts Leg/Holds 5-10 secs Total Score Coon Total Score (out of 56 points) 51 Coon Impairment Rating 1 to 19% Impaired (Score 45-55 ) Fernandez Fall Scale Copyright Permission PT-OP-E Functional Tests Start: 05/01/24 17:08 Freq: Status: Active Protocol: Document 05/01/24 16:20 DCW (Rec: 05/01/24 17:49 DCW [id number]) Functional Tests Dynamic Gait Index (DGI) Score 15/24 DGI Impairment Rating 20 to <40% Impaired (Score 15- 19) PT-OP-G Mobility & Gait Start: 05/01/24 17:50 Freq: Status: Active Protocol: Document 05/01/24 16:20 DCW (Rec: 05/01/24 17:52 DCW [id number]) OP Gait Assessment Assistive Devices Assistive Device 4 Wheeled Walker Gait Deviations General Gait Pattern Ataxic,Decreased Stride Length ,Decreased Feet Clearance, Festinating,Narrow Based Gait Comments Gait Comments Pt ambulates with a festinating gait pattern. Very short, shuffling steps, narrow KAREN. Uses 4WW for most ambulation, will frequently flex at trunk, allowing walker to start getting out farther in front of himself. PT-OP-T Assessment and Plan Start: 05/01/24 17:08 Freq: Status: Active Protocol: Document 05/01/24 16:20 DCW (Rec: 05/02/24 09:43 DCW [id number]) Physical Therapy Assessment Rehab Potential Rehabilitation Potential Fair Evaluation Complexity Number of Personal Factors/Comorbidities 3 or More Number of Body Systems Impaired 4 or More Clinical Presentation at Evaluation Unstable Impairments Impairments Activity Tolerance,Balance, Functional Activities, Functional Mobility,Gait, Posture Other Concerns Fall Risk Yes, per DGI score of 15/24 Goals Two Impairment Pt scores a 15/24 on the DGI Jail Goal (LTG) Pt to increase DGI score by at least five points to 20/24 in order to decrease fall risk during dynamic gait LTG Duration 07/03/24 One Impairment Pt does not have an appropriate home exercise program Short Term Goal (STG) Pt to be independent and compliant with an appropriate HEP STG Duration 06/01/24 Assessment Summary Assessment Pt presents with signs and symptoms consistent with ongoing neurological concerns. Coon score (51/56) shows decent static balance. Dynamic balance more limited, with DGI score of 15/24. Pt continues to exhibit festinating gait with short step length and poor foot clearance. Prior PT did help pt's dynamic balance previously, with an original initial score of 17/24 on the DGI improving to 20/24 at discharge earlier this year. Will continue to work on dynamic balance, LE/core strengthening, and improving functional mobility to decrease falls risk and improve gait patterns. Physical Therapy Plan Frequency and Duration Frequency of Treatment 2x/Week Plan of Care Start Date 05/01/24 Plan of Care End Date 07/02/24 Therapeutic Interventions Therapeutic Interventions Balance Training,Coordination Training,Gait Training,Home Exercise Program,Joint Mobilizations,Manual Therapy, Neuromuscular Re-education, Patient/Caregiver Education, Self-Care/Home Management,Soft Tissue Mobilization, Therapeutic Activities, Therapeutic Exercises, Vestibular Rehabilitation Next Visit Focus/Plan Next Note Type Treatment Note Next Visit Plan Dynamic balance, gait training , increased amplitude movements
--- NOTE | 2024-05-01 17:00 | PT.OPPOC ---
Physical, Occupational & Speech Therapy At [facility] Current Diagnoses Polyneuropathy, unspecified (05/01/24) (Idiopathic) normal pressure hydrocephalus (05/01/24) Unsteadiness on feet (05/01/24) Visit Care Team Role Provider Type Donnell Mascorro MD Attending Provider Physician Family Provider Primary Care Provider Referring Provider Specialty: Internal Medicine Address: [address] [place] [address], [facility] Email: [email or web address] Plan Of Care PT-OP-B Current Condition Start: 05/01/24 17:08 Freq: Status: Active Protocol: Document 05/01/24 16:20 DCW (Rec: 05/02/24 09:43 DCW [id number]) Current Condition History of Current Condition Current Complaints Decreased balance, festinating gait History of Current Condition Pt is an 83 year old male presenting to skilled therapy with declining balance and festinating gait. Pt was originally thought to have Parkinson's, had a trial of L- dopa, which had no effect. DDx was eventually changed to potential normal pressure hydrocephalus. Was treated at that facility for the same symptoms September-Jan earlier this year, and discharged prior to attempted treatment for Hydrocephalus in [place]. Pt received a spinal tap that slowly drained for three days to determine if the decreased in CSF helped symptoms. Pt notes that he and his thought he did a little better, but following the procedure, he was fairly debilitated with a headache and was not up moving around, so was told the results were inconclusive and he is unsure of the plan going forward. Pt was hoping for a stent placement. Currently, symptoms have returned to baseline, with fenstinating gait, decreased activity tolerance, and poor dynamic balance, although pt denies any falls. Notes some days he is exhausted and spends the day in bed, other days are better. PT-OP-T Assessment and Plan Start: 05/01/24 17:08 Freq: Status: Active Protocol: Document 05/01/24 16:20 DCW (Rec: 05/02/24 09:43 DCW [id number]) Physical Therapy Assessment Rehab Potential Rehabilitation Potential Fair Evaluation Complexity Number of Personal Factors/Comorbidities 3 or More Number of Body Systems Impaired 4 or More Clinical Presentation at Evaluation Unstable Impairments Impairments Activity Tolerance,Balance, Functional Activities, Functional Mobility,Gait, Posture Other Concerns Fall Risk Yes, per DGI score of 15/24 Goals Two Impairment Pt scores a 15/24 on the DGI Medical Billing Associate Goal (LTG) Pt to increase DGI score by at least five points to 20/24 in order to decrease fall risk during dynamic gait LTG Duration 07/03/24 One Impairment Pt does not have an appropriate home exercise program Short Term Goal (STG) Pt to be independent and compliant with an appropriate HEP STG Duration 06/01/24 Assessment Summary Assessment Pt presents with signs and symptoms consistent with ongoing neurological concerns. Coon score (51/56) shows decent static balance. Dynamic balance more limited, with DGI score of 15/24. Pt continues to exhibit festinating gait with short step length and poor foot clearance. Prior PT did help pt's dynamic balance previously, with an original initial score of 17/24 on the DGI improving to 20/24 at discharge earlier this year. Will continue to work on dynamic balance, LE/core strengthening, and improving functional mobility to decrease falls risk and improve gait patterns. Physical Therapy Plan Frequency and Duration Frequency of Treatment 2x/Week Plan of Care Start Date 05/01/24 Plan of Care End Date 07/02/24 Therapeutic Interventions Therapeutic Interventions Balance Training,Coordination Training,Gait Training,Home Exercise Program,Joint Mobilizations,Manual Therapy, Neuromuscular Re-education, Patient/Caregiver Education, Self-Care/Home Management,Soft Tissue Mobilization, Therapeutic Activities, Therapeutic Exercises, Vestibular Rehabilitation Next Visit Focus/Plan Next Note Type Treatment Note Next Visit Plan Dynamic balance, gait training , increased amplitude movements Plan of Care Dates Plan of Care Start Date 05/01/24 Plan of Care End Date 07/02/24 Electronically Signed by: Jarrod Chiu, PT 05/02/24 [id number] If you are in agreement with this Plan of Care, please return a signed and dated copy. I have reviewed this Plan of Care and certify that the skilled therapy services above are required to meet the patient?s needs. Physician Signature Date Printed Name and Credentials Clinical Instructor Signature Printed Name and Credentials
--- NOTE | 2024-05-03 17:10 | PT.OTN ---
Current Diagnoses Polyneuropathy, unspecified (05/03/24) (Idiopathic) normal pressure hydrocephalus (05/03/24) Unsteadiness on feet (05/03/24) Physical Therapy Treatment Note PT-OP-A Visit Information Start: 05/01/24 17:08 Freq: Status: Active Protocol: Document 05/03/24 16:15 DCW (Rec: 05/03/24 17:10 DCW [id number]) Out-Patient Physical Therapy Visit Information Visit Information Visit Type Treatment Note Visit Start Time 16:15 Visit Stop Time 17:00 Visit Number 2 Number of AVIATION CONSULTANT Visits 0 Evaluation Information Evaluation Date 05/01/24 PT-OP-B Current Condition Start: 05/01/24 17:08 Freq: Status: Active Protocol: Document 05/01/24 16:20 DCW (Rec: 05/02/24 09:43 DCW [id number]) Current Condition History of Current Condition Current Complaints Decreased balance, festinating gait History of Current Condition Pt is an 83 year old male presenting to skilled therapy with declining balance and festinating gait. Pt was originally thought to have Parkinson's, had a trial of L- dopa, which had no effect. DDx was eventually changed to potential normal pressure hydrocephalus. Was treated at that facility for the same symptoms September-Jan earlier this year, and discharged prior to attempted treatment for Hydrocephalus in [place]. Pt received a spinal tap that slowly drained for three days to determine if the decreased in CSF helped symptoms. Pt notes that he and his thought he did a little better, but following the procedure, he was fairly debilitated with a headache and was not up moving around, so was told the results were inconclusive and he is unsure of the plan going forward. Pt was hoping for a stent placement. Currently, symptoms have returned to baseline, with fenstinating gait, decreased activity tolerance, and poor dynamic balance, although pt denies any falls. Notes some days he is exhausted and spends the day in bed, other days are better. PT-OP-C Subjective Start: 05/01/24 17:08 Freq: Status: Active Protocol: Document 05/03/24 16:15 DCW (Rec: 05/03/24 17:10 DCW [id number]) OP-PT Subjective Patient Comments Patient Comments Pt continues to require VCs for bigger steps. PT-OP-D Balance Start: 05/01/24 17:08 Freq: Status: Active Protocol: Document 05/01/24 16:20 DCW (Rec: 05/01/24 17:49 DCW [id number]) OP-PT Balance Assessment Standing Balance Static Standing Balance Ability Normal Dynamic Standing Balance Ability Fair Device Used 4WW Balance Tests Coon Balance Test Coon Balance Test Score 51/56 Coon Impairment Rating 1 to 19% Impaired (Score 45-55 ) Coon Balance Assessment Evaluation Sitting to Standing Ability Independent w/out Hands Unsupported Stance Safely- 2 minutes Sitting Unsupported, Feet on Floor Safely- 2 minutes Standing to Sitting Ability Safely, Minimal Hand Use Transfer Ability Safely, Minimal Hand Use Unsupported Stance- Eyes Closed Supervision, 10 seconds Unsupported Stance- Eyes Open Supervision to maintain Reaching Forward Standing Safely, 5 inches Pick- Up Object From Floor Independent/Safe Look Behind Shoulder - Standing Shifts Weight Well Turning 360 Degrees Turns , < 4 secs Unsupported Stance, Alternating Feet on (I)- 8 Steps in 20 secs Stair Unsupported Tandem Stance Achieves Tandem Unilateral Leg Stance Lifts Leg/Holds 5-10 secs Total Score Coon Total Score (out of 56 points) 51 Coon Impairment Rating 1 to 19% Impaired (Score 45-55 ) Fernandez Fall Scale Copyright Permission PT-OP-E Functional Tests Start: 05/01/24 17:08 Freq: Status: Active Protocol: Document 05/01/24 16:20 DCW (Rec: 05/01/24 17:49 DCW [id number]) Functional Tests Dynamic Gait Index (DGI) Score 1524 DGI Impairment Rating 20 to <40% Impaired (Score 15- 19) PT-OP-G Mobility & Gait Start: 05/01/24 17:50 Freq: Status: Active Protocol: Document 05/01/24 16:20 DCW (Rec: 05/01/24 17:52 DCW [id number]) OP Gait Assessment Assistive Devices Assistive Device 4 Wheeled Walker Gait Deviations General Gait Pattern Ataxic,Decreased Stride Length ,Decreased Feet Clearance, Festinating,Narrow Based Gait Comments Gait Comments Pt ambulates with a festinating gait pattern. Very short, shuffling steps, narrow KAREN. Uses 4WW for most ambulation, will frequently flex at trunk, allowing walker to start getting out farther in front of himself. PT-OP-Q Treatments Start: 05/01/24 17:08 Freq: Status: Active Protocol: Document 05/03/24 16:15 DCW (Rec: 05/03/24 17:10 DCW [id number]) Cardio Equipment Recumbent Stepper (Sci-Fit) Duration (Minutes) 5 Resistance 4 Seat Position 13 Gym Equipment Shuttle Recovery unilateral squat Resistance 37# (1 navy) Reps/Time x20 bilateral squat Resistance 75# (3 navy) Reps/Time x25 Shuttle Balance Red Details WBOS, Staggered, Lateral Therapeutic Exercises Other Exercises Resisted Ambulation Other Exercise Name Resisted side-stepping Resistance Green loop Neuro Re-Education Treatment Balance Activities Foam Details Foam Stance Surface AirEx PT-OP-T Assessment and Plan Start: 05/01/24 17:08 Freq: Status: Active Protocol: Document 05/03/24 16:15 DCW (Rec: 05/03/24 17:10 DCW [id number]) Physical Therapy Assessment Impairments Impairments Activity Tolerance,Balance, Functional Activities, Functional Mobility,Gait, Posture Goals Two Impairment Pt scores a 15 on the DGI Dam Tender Goal (LTG) Pt to increase DGI score by at least five points to 2024 in order to decrease fall risk during dynamic gait LTG Duration 07/03/24 One Impairment Pt does not have an appropriate home exercise program Short Term Goal (STG) Pt to be independent and compliant with an appropriate HEP STG Duration 06/01/24 Assessment Summary Assessment Pt did fairly well, felt today was a good workout, fatigued by end of session, but did well with balance activities. Continue focusing on gait, balance, and LE strength. Physical Therapy Plan Frequency and Duration Frequency of Treatment 2x/Week Plan of Care Start Date 05/01/24 Plan of Care End Date 07/02/24 Therapeutic Interventions Therapeutic Interventions Balance Training,Coordination Training,Gait Training,Home Exercise Program,Joint Mobilizations,Manual Therapy, Neuromuscular Re-education, Patient/Caregiver Education, Self-Care/Home Management,Soft Tissue Mobilization, Therapeutic Activities, Therapeutic Exercises, Vestibular Rehabilitation Next Visit Focus/Plan Next Note Type Treatment Note Next Visit Plan Dynamic balance, gait training , increased amplitude movements
--- NOTE | 2024-05-10 13:45 | PT.OTN ---
Current Diagnoses Polyneuropathy, unspecified (05/10/24) (Idiopathic) normal pressure hydrocephalus (05/10/24) Unsteadiness on feet (05/10/24) Physical Therapy Treatment Note PT-OP-A Visit Information Start: 05/01/24 17:08 Freq: Status: Active Protocol: Document 05/10/24 13:05 SP (Rec: 05/10/24 14:11 SP [id number]) Out-Patient Physical Therapy Visit Information Visit Information Visit Type Treatment Note Visit Start Time 13:05 Visit Stop Time 13:45 Visit Number 3 Number of MEDICAL EQUIPMENT SALES Visits 1 Evaluation Information Evaluation Date 05/01/24 PT-OP-B Current Condition Start: 05/01/24 17:08 Freq: Status: Active Protocol: Document 05/01/24 16:20 DCW (Rec: 05/02/24 09:43 DCW [id number]) Current Condition History of Current Condition Current Complaints Decreased balance, festinating gait History of Current Condition Pt is an 83 year old male presenting to skilled therapy with declining balance and festinating gait. Pt was originally thought to have Parkinson's, had a trial of L- dopa, which had no effect. DDx was eventually changed to potential normal pressure hydrocephalus. Was treated at that facility for the same symptoms September-Jan earlier this year, and discharged prior to attempted treatment for Hydrocephalus in [place]. Pt received a spinal tap that slowly drained for three days to determine if the decreased in CSF helped symptoms. Pt notes that he and his thought he did a little better, but following the procedure, he was fairly debilitated with a headache and was not up moving around, so was told the results were inconclusive and he is unsure of the plan going forward. Pt was hoping for a stent placement. Currently, symptoms have returned to baseline, with fenstinating gait, decreased activity tolerance, and poor dynamic balance, although pt denies any falls. Notes some days he is exhausted and spends the day in bed, other days are better. PT-OP-C Subjective Start: 05/01/24 17:08 Freq: Status: Active Protocol: Document 05/10/24 13:05 SP (Rec: 05/10/24 14:11 SP [id number]) OP-PT Subjective Patient Comments Patient Comments Pt reports has been busy with outside appts. Has follow up at [facility] with Neurologist next . Hoping can get into email to send completed forms. He reported almost fell sitting side tub putting on socks. PT-OP-D Balance Start: 05/01/24 17:08 Freq: Status: Active Protocol: Document 05/01/24 16:20 DCW (Rec: 05/01/24 17:49 DCW [id number]) OP-PT Balance Assessment Standing Balance Static Standing Balance Ability Normal Dynamic Standing Balance Ability Fair Device Used 4WW Balance Tests Coon Balance Test Coon Balance Test Score 51/56 Coon Impairment Rating 1 to 19% Impaired (Score 45-55 ) Coon Balance Assessment Evaluation Sitting to Standing Ability Independent w/out Hands Unsupported Stance Safely- 2 minutes Sitting Unsupported, Feet on Floor Safely- 2 minutes Standing to Sitting Ability Safely, Minimal Hand Use Transfer Ability Safely, Minimal Hand Use Unsupported Stance- Eyes Closed Supervision, 10 seconds Unsupported Stance- Eyes Open Supervision to maintain Reaching Forward Standing Safely, 5 inches Pick- Up Object From Floor Independent/Safe Look Behind Shoulder - Standing Shifts Weight Well Turning 360 Degrees Turns , < 4 secs Unsupported Stance, Alternating Feet on (I)- 8 Steps in 20 secs Stair Unsupported Tandem Stance Achieves Tandem Unilateral Leg Stance Lifts Leg/Holds 5-10 secs Total Score Coon Total Score (out of 56 points) 51 Coon Impairment Rating 1 to 19% Impaired (Score 45-55 ) Fernandez Fall Scale Copyright Permission PT-OP-E Functional Tests Start: 05/01/24 17:08 Freq: Status: Active Protocol: Document 05/01/24 16:20 DCW (Rec: 05/01/24 17:49 DCW [id number]) Functional Tests Dynamic Gait Index (DGI) Score 1524 DGI Impairment Rating 20 to <40% Impaired (Score 15- 19) PT-OP-G Mobility & Gait Start: 05/01/24 17:50 Freq: Status: Active Protocol: Document 05/01/24 16:20 DCW (Rec: 05/01/24 17:52 DCW [id number]) OP Gait Assessment Assistive Devices Assistive Device 4 Wheeled Walker Gait Deviations General Gait Pattern Ataxic,Decreased Stride Length ,Decreased Feet Clearance, Festinating,Narrow Based Gait Comments Gait Comments Pt ambulates with a festinating gait pattern. Very short, shuffling steps, narrow KAREN. Uses 4WW for most ambulation, will frequently flex at trunk, allowing walker to start getting out farther in front of himself. PT-OP-Q Treatments Start: 05/01/24 17:08 Freq: Status: Active Protocol: Document 05/10/24 13:05 SP (Rec: 05/10/24 14:11 SP [id number]) Cardio Equipment Recumbent Stepper (Sci-Fit) Duration (Minutes) 10 Resistance 4 Seat Position 14 Other BUEs, BLEs- 45 RPMs Gym Equipment Shuttle Recovery unilateral squat Details tired quicker after Prabhu reps. Resistance 37# (1 navy) Reps/Time x15 L, x20 R bilateral squat Resistance 75# (3 navy) Reps/Time x35 Therapeutic Exercises Sitting Exercises STS Sitting Exercise Name initiated in PT- suggested at HEP, declined HO Resistance AROM arms across chest Equipment Used BIG Chair Reps/Minutes x10 Comments suggested continuing home and strengthening carryover Other Exercises Resisted Ambulation Other Exercise Name Resisted stepping: side, fwd, bwd Resistance [place] loop at shins Equipment Used PRN rail lateral, no UE fwd/ bwd Reps/Minutes 10 ft x2 laps Comments cued posture, slower pacing, trail more than lead foot clearance, Therapeutic Activity Therapeutic Activity ON/OFF floor Reps/Minutes 1 reps Comments outside support rail. Pt performed 5 push ups off hands feet when prone. transfers /c 4WW Name between chairs Reps/Minutes 6 Comments cues proper brake mgt, position 4WW fully backing up, reach back slow descend sit, push from chair arms stand. improved with reps , discussion being more consistant performance. Neuro Re-Education Treatment Balance Activities Foam Details Foam Stance Surface AirEx Equipment edy rail PRN Comments NBOS: HTs horizontal/vertical and EC 30 sec (slight sways but self recovery) stagger stance: HTs horizontal /vertical slight sway R- light contact rail recovery PT-OP-T Assessment and Plan Start: 05/01/24 17:08 Freq: Status: Active Protocol: Document 05/10/24 13:05 SP (Rec: 05/10/24 14:11 SP [id number]) Physical Therapy Assessment Goals Two Impairment Pt scores a on the DGI Half-Way Goal (LTG) Pt to increase DGI score by at least five points to 20/24 in order to decrease fall risk during dynamic gait LTG Duration 07/03/24 One Impairment Pt does not have an appropriate home exercise program Short Term Goal (STG) Pt to be independent and compliant with an appropriate HEP STG Duration 06/01/24 Assessment Summary Assessment Pt good effort during tx, good work out noted increased breath rate during cardio and LE shuttle recovery. Improved balance midline corrections on uneven surface with cues for posturing and TKE eyes closed up to 30 sec NBOS today . Continued cues for taller posturing and TKE bilateral, improved stride and foot clearance during resisted stepping, gait and transfers areas of gym. Improved proper hand placement and 4WW positioning and brake mgt with instruction and reps. Suggested continue STS at home for carryover LE strengthening home, verbalized in agreement, declined HO. Physical Therapy Plan Frequency and Duration Frequency of Treatment 2x/Week Plan of Care Start Date 05/01/24 Plan of Care End Date 07/02/24 Therapeutic Interventions Therapeutic Interventions Balance Training,Coordination Training,Gait Training,Home Exercise Program,Joint Mobilizations,Manual Therapy, Neuromuscular Re-education, Patient/Caregiver Education, Self-Care/Home Management,Soft Tissue Mobilization, Therapeutic Activities, Therapeutic Exercises, Vestibular Rehabilitation Next Visit Focus/Plan Next Note Type Treatment Note Next Visit Plan Trial BIG movement STS, standing forward rocking reach . Trial trek poles. POC: Dynamic balance, obstacle mgt /c 4WW, gait training, increased amplitude movements
--- NOTE | 2024-05-25 14:35 | PT.OTN ---
Current Diagnoses Polyneuropathy, unspecified (05/25/24) (Idiopathic) normal pressure hydrocephalus (05/25/24) Unsteadiness on feet (05/25/24) Physical Therapy Treatment Note PT-OP-A Visit Information Start: 05/01/24 17:08 Freq: Status: Active Protocol: Document 05/25/24 13:49 SP (Rec: 05/25/24 15:10 SP [id number]) Out-Patient Physical Therapy Visit Information Visit Information Visit Type Treatment Note Visit Start Time 13:51 Visit Stop Time 14:35 Visit Number 4 Number of MANAGER OPERATIONS RESEARCH Visits 2 Evaluation Information Evaluation Date 05/01/24 PT-OP-B Current Condition Start: 05/01/24 17:08 Freq: Status: Active Protocol: Document 05/01/24 16:20 DCW (Rec: 05/02/24 09:43 DCW [id number]) Current Condition History of Current Condition Current Complaints Decreased balance, festinating gait History of Current Condition Pt is an 83 year old male presenting to skilled therapy with declining balance and festinating gait. Pt was originally thought to have Parkinson's, had a trial of L- dopa, which had no effect. DDx was eventually changed to potential normal pressure hydrocephalus. Was treated at that facility for the same symptoms September-Jan earlier this year, and discharged prior to attempted treatment for Hydrocephalus in [place]. Pt received a spinal tap that slowly drained for three days to determine if the decreased in CSF helped symptoms. Pt notes that he and his thought he did a little better, but following the procedure, he was fairly debilitated with a headache and was not up moving around, so was told the results were inconclusive and he is unsure of the plan going forward. Pt was hoping for a stent placement. Currently, symptoms have returned to baseline, with fenstinating gait, decreased activity tolerance, and poor dynamic balance, although pt denies any falls. Notes some days he is exhausted and spends the day in bed, other days are better. PT-OP-C Subjective Start: 05/01/24 17:08 Freq: Status: Active Protocol: Document 05/25/24 13:49 SP (Rec: 05/25/24 15:10 SP [id number]) OP-PT Subjective Patient Comments Patient Comments Pt reports had a quiet holiday but did go out for new years nicky. He stated has been to many appts looking for Parkinson's but no luck. Has appt at [facility] move up form Aug to Jun 05. Did to movement clinic and didn't feel had Parkinson's after all testing. He thinks feeling getting worse because had an incontinence issue 1st time ever. Continues to freeze shuffling that cant' take bins to curb anymore and more tired lately. PT-OP-D Balance Start: 05/01/24 17:08 Freq: Status: Active Protocol: Document 05/01/24 16:20 DCW (Rec: 05/01/24 17:49 DCW [id number]) OP-PT Balance Assessment Standing Balance Static Standing Balance Ability Normal Dynamic Standing Balance Ability Fair Device Used 4WW Balance Tests Coon Balance Test Coon Balance Test Score 51/56 Coon Impairment Rating 1 to 19% Impaired (Score 45-55 ) Coon Balance Assessment Evaluation Sitting to Standing Ability Independent w/out Hands Unsupported Stance Safely- 2 minutes Sitting Unsupported, Feet on Floor Safely- 2 minutes Standing to Sitting Ability Safely, Minimal Hand Use Transfer Ability Safely, Minimal Hand Use Unsupported Stance- Eyes Closed Supervision, 10 seconds Unsupported Stance- Eyes Open Supervision to maintain Reaching Forward Standing Safely, 5 inches Pick- Up Object From Floor Independent/Safe Look Behind Shoulder - Standing Shifts Weight Well Turning 360 Degrees Turns , < 4 secs Unsupported Stance, Alternating Feet on (I)- 8 Steps in 20 secs Stair Unsupported Tandem Stance Achieves Tandem Unilateral Leg Stance Lifts Leg/Holds 5-10 secs Total Score Coon Total Score (out of 56 points) 51 Coon Impairment Rating 1 to 19% Impaired (Score 45-55 ) Fernandez Fall Scale Copyright Permission PT-OP-E Functional Tests Start: 05/01/24 17:08 Freq: Status: Active Protocol: Document 05/01/24 16:20 DCW (Rec: 05/01/24 17:49 DCW [id number]) Functional Tests Dynamic Gait Index (DGI) Score 15/24 DGI Impairment Rating 20 to <40% Impaired (Score 15- 19) PT-OP-G Mobility & Gait Start: 05/01/24 17:50 Freq: Status: Active Protocol: Document 05/01/24 16:20 DCW (Rec: 05/01/24 17:52 DCW [id number]) OP Gait Assessment Assistive Devices Assistive Device 4 Wheeled Walker Gait Deviations General Gait Pattern Ataxic,Decreased Stride Length ,Decreased Feet Clearance, Festinating,Narrow Based Gait Comments Gait Comments Pt ambulates with a festinating gait pattern. Very short, shuffling steps, narrow KAREN. Uses 4WW for most ambulation, will frequently flex at trunk, allowing walker to start getting out farther in front of himself. PT-OP-Q Treatments Start: 05/01/24 17:08 Freq: Status: Active Protocol: Document 05/25/24 13:49 SP (Rec: 05/25/24 15:10 SP [id number]) Cardio Equipment Recumbent Stepper (Sci-Fit) Duration (Minutes) 9 Resistance 4 Seat Position 14 Other BUEs, BLEs- 43-45 RPMs- cued big strides Therapeutic Exercises Sitting Exercises STS Sitting Exercise Name initiated in PT- suggested at HEP, declined HO Resistance AROM arms across chest Equipment Used mesh chair, standing blue foam Reps/Minutes x10 Comments cued full sit, full stand COG over KAREN, controlled sit Gait Training Gait Activity 4WW Device Used blue 4WW Distance/Duration 340 ft Treatment Focus posture, increase stride & foot clearance Comments Elevated blue 4WW handles 2 knotches (see 6 holes), improved upright posture, continued cues for BLEs more proximal to seat, DF swing through and heel strike advancement- decreased cues 2nd 1/2 distance. dynamic gait Description tandem fwd, reg retro stepping Device Used inside //bars Level of Assistance CG- 20%A via gait belt Distance/Duration 10 ft x4 laps Treatment Focus midline stability, increase stride, foot clearance Comments -tandem: 20% time R lateral lean, cues vier L, straight knees wt shift into advanced LE- contact rail if needed -Retro: occ cues for upright posture, increase stride and slower pacing- no UE support needed. Neuro Re-Education Treatment Balance Activities large cushion Details marching Surface large cushion, 5# leg wts Reps/Duration 20 reps alternating Comments cued upright posture, knees straight step ups Surface foam, then 6 + foam Reps/Duration 10 reps eahc LE lead per surface Comments CG- 5%A Cues wt shift over stance advance LE, max cues for patterning alternating BLEs . Self-Care/Home Management Treatment Education Patient Education Body Mechanics,Posture Other Education Adjusted blue 4WW 2 knotches higher, improved posture during gait. Provided note on 4WW seat for to remind during gait: tall, BLEs closer to seat, bigger steps, toes up heel contact. PT-OP-T Assessment and Plan Start: 05/01/24 17:08 Freq: Status: Active Protocol: Document 05/25/24 13:49 SP (Rec: 05/25/24 15:10 SP [id number]) Physical Therapy Assessment Goals Two Impairment Pt scores a on the DGI Fleet Maintenance Manager Goal (LTG) Pt to increase DGI score by at least five points to in order to decrease fall risk during dynamic gait LTG Duration 07/03/24 One Impairment Pt does not have an appropriate home exercise program Short Term Goal (STG) Pt to be independent and compliant with an appropriate HEP STG Duration 06/01/24 Assessment Summary Assessment Pt improved foot clearance and stride post standing strengthe and balance activities. Required cues for carryover body positioning closer to 4WW with heel strike advancement. MANAGER OPERATIONS RESEARCH elevated blue 4WW handles improved more upright posture. Pt improved balance during tandem with cues TKE and wt shift into forward LE, required Min A trunk support recovery due to R>L lateral lean at times. Physical Therapy Plan Frequency and Duration Frequency of Treatment 2x/Week Plan of Care Start Date 05/01/24 Plan of Care End Date 07/02/24 Therapeutic Interventions Therapeutic Interventions Balance Training,Coordination Training,Gait Training,Home Exercise Program,Joint Mobilizations,Manual Therapy, Neuromuscular Re-education, Patient/Caregiver Education, Self-Care/Home Management,Soft Tissue Mobilization, Therapeutic Activities, Therapeutic Exercises, Vestibular Rehabilitation Next Visit Focus/Plan Next Note Type Treatment Note Next Visit Plan Trial BIG movement STS, standing forward rocking reach . Trial trek poles gait LE and UE advancement swinging. POC: Dynamic balance, obstacle mgt /c 4WW, gait training, increased amplitude movements
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
--- NOTE | 2024-05-30 13:00 | PT.OTN ---
Current Diagnoses Polyneuropathy, unspecified (05/30/24) (Idiopathic) normal pressure hydrocephalus (05/30/24) Unsteadiness on feet (05/30/24) Physical Therapy Treatment Note PT-OP-A Visit Information Start: 05/01/24 17:08 Freq: Status: Active Protocol: Document 05/30/24 12:20 DCW (Rec: 05/30/24 12:59 DCW [id number]) Out-Patient Physical Therapy Visit Information Visit Information Visit Type Treatment Note Visit Start Time 12:20 Visit Stop Time 13:00 Visit Number 6 Number of MEAT TRIMMER Visits 0 Evaluation Information Evaluation Date 05/01/24 PT-OP-B Current Condition Start: 05/01/24 17:08 Freq: Status: Active Protocol: Document 05/01/24 16:20 DCW (Rec: 05/02/24 09:43 DCW [id number]) Current Condition History of Current Condition Current Complaints Decreased balance, festinating gait History of Current Condition Pt is an 83 year old male presenting to skilled therapy with declining balance and festinating gait. Pt was originally thought to have Parkinson's, had a trial of L- dopa, which had no effect. DDx was eventually changed to potential normal pressure hydrocephalus. Was treated at that facility for the same symptoms September-Jan earlier this year, and discharged prior to attempted treatment for Hydrocephalus in [place]. Pt received a spinal tap that slowly drained for three days to determine if the decreased in CSF helped symptoms. Pt notes that he and his thought he did a little better, but following the procedure, he was fairly debilitated with a headache and was not up moving around, so was told the results were inconclusive and he is unsure of the plan going forward. Pt was hoping for a stent placement. Currently, symptoms have returned to baseline, with fenstinating gait, decreased activity tolerance, and poor dynamic balance, although pt denies any falls. Notes some days he is exhausted and spends the day in bed, other days are better. PT-OP-C Subjective Start: 05/01/24 17:08 Freq: Status: Active Protocol: Document 05/30/24 12:20 DCW (Rec: 05/30/24 12:59 DCW [id number]) OP-PT Subjective Patient Comments Patient Comments About the same. Has appointment to see neuro next . PT-OP-D Balance Start: 05/01/24 17:08 Freq: Status: Active Protocol: Document 05/01/24 16:20 DCW (Rec: 05/01/24 17:49 DCW [id number]) OP-PT Balance Assessment Standing Balance Static Standing Balance Ability Normal Dynamic Standing Balance Ability Fair Device Used 4WW Balance Tests Coon Balance Test Coon Balance Test Score 51/56 Coon Impairment Rating 1 to 19% Impaired (Score 45-55 ) Coon Balance Assessment Evaluation Sitting to Standing Ability Independent w/out Hands Unsupported Stance Safely- 2 minutes Sitting Unsupported, Feet on Floor Safely- 2 minutes Standing to Sitting Ability Safely, Minimal Hand Use Transfer Ability Safely, Minimal Hand Use Unsupported Stance- Eyes Closed Supervision, 10 seconds Unsupported Stance- Eyes Open Supervision to maintain Reaching Forward Standing Safely, 5 inches Pick- Up Object From Floor Independent/Safe Look Behind Shoulder - Standing Shifts Weight Well Turning 360 Degrees Turns , < 4 secs Unsupported Stance, Alternating Feet on (I)- 8 Steps in 20 secs Stair Unsupported Tandem Stance Achieves Tandem Unilateral Leg Stance Lifts Leg/Holds 5-10 secs Total Score Coon Total Score (out of 56 points) 51 Coon Impairment Rating 1 to 19% Impaired (Score 45-55 ) Fernandez Fall Scale Copyright Permission PT-OP-E Functional Tests Start: 05/01/24 17:08 Freq: Status: Active Protocol: Document 05/01/24 16:20 DCW (Rec: 05/01/24 17:49 DCW [id number]) Functional Tests Dynamic Gait Index (DGI) Score 15/24 DGI Impairment Rating 20 to <40% Impaired (Score 15- 19) PT-OP-G Mobility & Gait Start: 05/01/24 17:50 Freq: Status: Active Protocol: Document 05/01/24 16:20 DCW (Rec: 05/01/24 17:52 DCW [id number]) OP Gait Assessment Assistive Devices Assistive Device 4 Wheeled Walker Gait Deviations General Gait Pattern Ataxic,Decreased Stride Length ,Decreased Feet Clearance, Festinating,Narrow Based Gait Comments Gait Comments Pt ambulates with a festinating gait pattern. Very short, shuffling steps, narrow KAREN. Uses 4WW for most ambulation, will frequently flex at trunk, allowing walker to start getting out farther in front of himself. PT-OP-Q Treatments Start: 05/01/24 17:08 Freq: Status: Active Protocol: Document 05/30/24 12:20 DCW (Rec: 05/30/24 12:59 DCW [id number]) Cardio Equipment Recumbent Stepper (Sci-Fit) Duration (Minutes) 6 Resistance 4 Seat Position 14 Other BUEs, BLEs- 43-45 RPMs- cued big strides Gym Equipment Shuttle Recovery unilateral squat Details R weaker than L Resistance 50# (1 navy, 1 teal) Reps/Time x20 each bilateral squat Resistance 75# (3 navy) Reps/Time x35 Shuttle Balance Red Details WBOS, Staggered Neuro Re-Education Treatment Balance Activities Tandem Details Tandem Ambulation Equipment // bars hurdles Details receiprocal fwd stepping, lateral step to stepping Equipment 6 hurdles Reps/Duration // bars PT-OP-T Assessment and Plan Start: 05/01/24 17:08 Freq: Status: Active Protocol: Document 05/30/24 12:20 DCW (Rec: 05/30/24 12:59 DCW [id number]) Physical Therapy Assessment Impairments Impairments Activity Tolerance,Balance, Functional Activities, Functional Mobility,Gait, Posture Goals Two Impairment Pt scores a 15/24 on the DGI Alf Goal (LTG) Pt to increase DGI score by at least five points to 20/24 in order to decrease fall risk during dynamic gait LTG Duration 07/03/24 One Impairment Pt does not have an appropriate home exercise program Short Term Goal (STG) Pt to be independent and compliant with an appropriate HEP STG Duration 06/01/24 Assessment Summary Assessment Pt showing some mild improvements overall, continues to fatigue quickly, doing slightly better with decreased festinating gait. Physical Therapy Plan Frequency and Duration Frequency of Treatment 2x/Week Plan of Care Start Date 05/01/24 Plan of Care End Date 07/02/24 Therapeutic Interventions Therapeutic Interventions Balance Training,Coordination Training,Gait Training,Home Exercise Program,Joint Mobilizations,Manual Therapy, Neuromuscular Re-education, Patient/Caregiver Education, Self-Care/Home Management,Soft Tissue Mobilization, Therapeutic Activities, Therapeutic Exercises, Vestibular Rehabilitation Next Visit Focus/Plan Next Note Type Treatment Note Next Visit Plan Continue increase amplitude with gait, balance. POC: Dynamic balance, obstacle mgt /c 4WW, gait training.
--- NOTE | 2024-06-04 13:44 | PT.OTN ---
Current Diagnoses Polyneuropathy, unspecified (06/04/24) (Idiopathic) normal pressure hydrocephalus (06/04/24) Unsteadiness on feet (06/04/24) Physical Therapy Treatment Note PT-OP-A Visit Information Start: 05/01/24 17:08 Freq: Status: Active Protocol: Document 06/04/24 13:06 SP (Rec: 06/04/24 13:50 SP [id number]) Out-Patient Physical Therapy Visit Information Visit Information Visit Type Treatment Note Visit Start Time 13:06 Visit Stop Time 13:44 Visit Number 7 Number of DYE MACHINE OPERATOR Visits 1 Evaluation Information Evaluation Date 05/01/24 PT-OP-B Current Condition Start: 05/01/24 17:08 Freq: Status: Active Protocol: Document 05/01/24 16:20 DCW (Rec: 05/02/24 09:43 DCW [id number]) Current Condition History of Current Condition Current Complaints Decreased balance, festinating gait History of Current Condition Pt is an 83 year old male presenting to skilled therapy with declining balance and festinating gait. Pt was originally thought to have Parkinson's, had a trial of L- dopa, which had no effect. DDx was eventually changed to potential normal pressure hydrocephalus. Was treated at that facility for the same symptoms September-Jan earlier this year, and discharged prior to attempted treatment for Hydrocephalus in [place]. Pt received a spinal tap that slowly drained for three days to determine if the decreased in CSF helped symptoms. Pt notes that he and his thought he did a little better, but following the procedure, he was fairly debilitated with a headache and was not up moving around, so was told the results were inconclusive and he is unsure of the plan going forward. Pt was hoping for a stent placement. Currently, symptoms have returned to baseline, with fenstinating gait, decreased activity tolerance, and poor dynamic balance, although pt denies any falls. Notes some days he is exhausted and spends the day in bed, other days are better. PT-OP-C Subjective Start: 05/01/24 17:08 Freq: Status: Active Protocol: Document 06/04/24 13:06 SP (Rec: 06/04/24 13:50 SP [id number]) OP-PT Subjective Patient Comments Patient Comments Pt reports fell in living room yesterday when trying sit on rotating stool with stationary round base, bounced off it and landed on his bottom on floor, observed. He was able to get self off floor with chair support, didn't need to go get further medical help. He see neurosurgeon This Th and unsure plan. PT-OP-D Balance Start: 05/01/24 17:08 Freq: Status: Active Protocol: Document 05/01/24 16:20 DCW (Rec: 05/01/24 17:49 DCW [id number]) OP-PT Balance Assessment Standing Balance Static Standing Balance Ability Normal Dynamic Standing Balance Ability Fair Device Used 4WW Balance Tests Coon Balance Test Coon Balance Test Score 51/56 Coon Impairment Rating 1 to 19% Impaired (Score 45-55 ) Coon Balance Assessment Evaluation Sitting to Standing Ability Independent w/out Hands Unsupported Stance Safely- 2 minutes Sitting Unsupported, Feet on Floor Safely- 2 minutes Standing to Sitting Ability Safely, Minimal Hand Use Transfer Ability Safely, Minimal Hand Use Unsupported Stance- Eyes Closed Supervision, 10 seconds Unsupported Stance- Eyes Open Supervision to maintain Reaching Forward Standing Safely, 5 inches Pick- Up Object From Floor Independent/Safe Look Behind Shoulder - Standing Shifts Weight Well Turning 360 Degrees Turns , < 4 secs Unsupported Stance, Alternating Feet on (I)- 8 Steps in 20 secs Stair Unsupported Tandem Stance Achieves Tandem Unilateral Leg Stance Lifts Leg/Holds 5-10 secs Total Score Coon Total Score (out of 56 points) 51 Coon Impairment Rating 1 to 19% Impaired (Score 45-55 ) Fernandez Fall Scale Copyright Permission PT-OP-E Functional Tests Start: 05/01/24 17:08 Freq: Status: Active Protocol: Document 05/01/24 16:20 DCW (Rec: 05/01/24 17:49 DCW [id number]) Functional Tests Dynamic Gait Index (DGI) Score 15 DGI Impairment Rating 20 to <40% Impaired (Score 15- 19) PT-OP-G Mobility & Gait Start: 05/01/24 17:50 Freq: Status: Active Protocol: Document 05/01/24 16:20 DCW (Rec: 05/01/24 17:52 DCW [id number]) OP Gait Assessment Assistive Devices Assistive Device 4 Wheeled Walker Gait Deviations General Gait Pattern Ataxic,Decreased Stride Length ,Decreased Feet Clearance, Festinating,Narrow Based Gait Comments Gait Comments Pt ambulates with a festinating gait pattern. Very short, shuffling steps, narrow KAREN. Uses 4WW for most ambulation, will frequently flex at trunk, allowing walker to start getting out farther in front of himself. PT-OP-Q Treatments Start: 05/01/24 17:08 Freq: Status: Active Protocol: Document 06/04/24 13:06 SP (Rec: 06/04/24 13:50 SP [id number]) Cardio Equipment Recumbent Stepper (Sci-Fit) Duration (Minutes) 6 Resistance 4 Seat Position 14 Other BUEs& BLEs- 43-45 RPMs- cued big strides Gym Equipment Shuttle Recovery unilateral squat Details R leg felt stronger than L today Resistance 50# (2 navy) Reps/Time x15 each bilateral squat Resistance 75# (3 navy) Reps/Time x35 Shuttle Balance Red Details WBOS, NBOS, Staggered Reps/Duration cg-10% A Comments WBOS wt shift, stationary HTs NBOS wt shfit, HTs, EC 2 sec Stagger Stance: wt shift, HTs- higher Min A R ft fwd Neuro Re-Education Treatment Balance Activities dynamic hallway balance stepping Details retro, fwd EC Equipment finger glide wall PRN- every few steps Tandem Details Tandem fwd & bwd Ambulation Equipment // bars: Comments cued more TKE tall over advanced LE hurdles Details receiprocal fwd stepping /c foam Equipment 6 hurdles, foam Reps/Duration // bars Comments PRN contact rail PT-OP-T Assessment and Plan Start: 05/01/24 17:08 Freq: Status: Active Protocol: Document 06/04/24 13:06 SP (Rec: 06/04/24 13:50 SP [id number]) Physical Therapy Assessment Goals Two Impairment Pt scores a 15 on the DGI Apprentice Architect Goal (LTG) Pt to increase DGI score by at least five points to 20 in order to decrease fall risk during dynamic gait LTG Duration 07/03/24 One Impairment Pt does not have an appropriate home exercise program Short Term Goal (STG) Pt to be independent and compliant with an appropriate HEP STG Duration 06/01/24 Assessment Summary Assessment Pt improved balance with min cueing throughout tx during most activities increase TKE over advanced LE stepping and more even bal on shuttle balance, able progress head turn chalenge. Physical Therapy Plan Frequency and Duration Frequency of Treatment 2x/Week Plan of Care Start Date 05/01/24 Plan of Care End Date 07/02/24 Therapeutic Interventions Therapeutic Interventions Balance Training,Coordination Training,Gait Training,Home Exercise Program,Joint Mobilizations,Manual Therapy, Neuromuscular Re-education, Patient/Caregiver Education, Self-Care/Home Management,Soft Tissue Mobilization, Therapeutic Activities, Therapeutic Exercises, Vestibular Rehabilitation Next Visit Focus/Plan Next Note Type Treatment Note Next Visit Plan Hold add more appt until after Th dr appt if havign surgery. POC: Continue increase amplitude with gait, balance. POC: Dynamic balance, obstacle mgt /c 4WW, gait training.
--- NOTE | 2024-06-06 11:28 | PT.OTN ---
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 Pt was originally thought to have Parkinson's, had a trial of L- dopa, which had no effect. DDx was eventually changed to potential normal pressure hydrocephalus. Was treated at that facility for the same symptoms September-Jan earlier this year, and discharged prior to attempted treatment for Hydrocephalus in [place]. Pt received a spinal tap that slowly drained for three days to determine if the decreased in CSF helped symptoms. Pt notes that he and his thought he did a little better, but following the procedure, he was fairly debilitated with a headache and was not up moving around, so was told the results were inconclusive and he is unsure of the plan going forward. Pt was hoping for a stent placement. Currently, symptoms have returned to baseline, with fenstinating gait, decreased activity tolerance, and poor dynamic balance, although pt denies any falls. Notes some days he is exhausted and spends the day in bed, other days are better. PT-OP-C Subjective Start: 05/01/24 17:08 Freq: Status: Active Protocol: Document 06/06/24 10:48 SP (Rec: 06/06/24 11:33 SP [id number]) OP-PT Subjective Patient Comments Patient Comments Pt reports I think my SPF got low because reminded him forgot his walker when he was walking across the room yesterday. He reported was remembering doing arm swings with poles in past tx when walked out to mailbox using QC . PT-OP-D Balance Start: 05/01/24 17:08 Freq: Status: Active Protocol: Document 05/01/24 16:20 DCW (Rec: 05/01/24 17:49 DCW [id number]) OP-PT Balance Assessment Standing Balance Static Standing Balance Ability Normal Dynamic Standing Balance Ability Fair Device Used 4WW Balance Tests Coon Balance Test Coon Balance Test Score 51/56 Coon Impairment Rating 1 to 19% Impaired (Score 45-55 ) Coon Balance Assessment Evaluation Sitting to Standing Ability Independent w/out Hands Unsupported Stance Safely- 2 minutes Sitting Unsupported, Feet on Floor Safely- 2 minutes Standing to Sitting Ability Safely, Minimal Hand Use Transfer Ability Safely, Minimal Hand Use Unsupported Stance- Eyes Closed Supervision, 10 seconds Unsupported Stance- Eyes Open Supervision to maintain Reaching Forward Standing Safely, 5 inches Pick- Up Object From Floor Independent/Safe Look Behind Shoulder - Standing Shifts Weight Well Turning 360 Degrees Turns , < 4 secs Unsupported Stance, Alternating Feet on (I)- 8 Steps in 20 secs Stair Unsupported Tandem Stance Achieves Tandem Unilateral Leg Stance Lifts Leg/Holds 5-10 secs Total Score Coon Total Score (out of 56 points) 51 Coon Impairment Rating 1 to 19% Impaired (Score 45-55 ) Fernandez Fall Scale Copyright Permission PT-OP-E Functional Tests Start: 05/01/24 17:08 Freq: Status: Active Protocol: Document 05/01/24 16:20 DCW (Rec: 05/01/24 17:49 DCW [id number]) Functional Tests Dynamic Gait Index (DGI) Score 15 DGI Impairment Rating 20 to <40% Impaired (Score 15- 19) PT-OP-G Mobility & Gait Start: 05/01/24 17:50 Freq: Status: Active Protocol: Document 05/01/24 16:20 DCW (Rec: 05/01/24 17:52 DCW [id number]) OP Gait Assessment Assistive Devices Assistive Device 4 Wheeled Walker Gait Deviations General Gait Pattern Ataxic,Decreased Stride Length ,Decreased Feet Clearance, Festinating,Narrow Based Gait Comments Gait Comments Pt ambulates with a festinating gait pattern. Very short, shuffling steps, narrow KAREN. Uses 4WW for most ambulation, will frequently flex at trunk, allowing walker to start getting out farther in front of himself. PT-OP-Q Treatments Start: 05/01/24 17:08 Freq: Status: Active Protocol: Document 06/06/24 10:48 SP (Rec: 06/06/24 11:33 SP [id number]) Cardio Equipment Recumbent Stepper (Sci-Fit) Duration (Minutes) 6 Resistance 4 Seat Position 14 Other BUEs& BLEs- 43-45 RPMs- cued big quicker strides Gym Equipment Shuttle Recovery unilateral squat Details R leg felt stronger than L today Resistance 50# (2 navy) Reps/Time 13 L, 15 R bilateral squat Resistance 75# (3 navy) (87# next tx) Reps/Time x40 Therapeutic Exercises Sitting Exercises STS Sitting Exercise Name Increased amplitude arms at side ER into stand Resistance arms front Equipment Used mesh chair, foam under feet Reps/Minutes x10 Comments cued scoot front seat, full hip ext&TKE standing, controlled soft sit. Other Exercises Resisted Ambulation Other Exercise Name Resisted stepping: side, fwd, bwd Resistance [place] [employer] [employer] Green loop at ankles Equipment Used no UE support today /15 Reps/Minutes 10 ft x3 laps each Comments cued posture, slower pacing, upright posture, DF trail LE clearance Neuro Re-Education Treatment Balance Activities dynamic hallway balance stepping Details fwd tandem, retro, fwd EC Equipment finger glide wall PRN- every few steps Comments LOB trial EC retro, Min A recovery. Intermittent cues tall, TKE more fwd into front LE even BLE WB. Foam Details Foam Stance Surface AirEx Equipment edy rail PRN Comments Stagger stance: HTs horizontal /vertical slight sway R- light contact rail recovery, EC 12 sec before LOB L ft fwd, R ft fwd HTs and EC 3 sec before LOB R & back MIn A Balloon volley CG- Min A WBOS, stride stance cued wt shift into ft foot.LOB R Min recovery PT-OP-T Assessment and Plan Start: 05/01/24 17:08 Freq: Status: Active Protocol: Document 06/06/24 10:48 SP (Rec: 06/06/24 11:33 SP [id number]) Physical Therapy Assessment Goals Two Impairment Pt scores a 15/24 on the DGI Residential Goal (LTG) Pt to increase DGI score by at least five points to 20/24 in order to decrease fall risk during dynamic gait LTG Duration 07/03/24 One Impairment Pt does not have an appropriate home exercise program Short Term Goal (STG) Pt to be independent and compliant with an appropriate HEP STG Duration 06/01/24 Assessment Summary Assessment Pt improved posture, TKE, cues for midline wt shift allow balance recovery during uneven surface stance advanced balloon volley activity, 2 LOB to L and retro R, Min A recovery needed. Pt continues lessen finger contact wall during tandem walking fwd EO cues for elevated posture and TKE. He was ableto progress resisted stepping without UE support. Physical Therapy Plan Frequency and Duration Frequency of Treatment 2x/Week Plan of Care Start Date 05/01/24 Plan of Care End Date 07/02/24 Therapeutic Interventions Therapeutic Interventions Balance Training,Coordination Training,Gait Training,Home Exercise Program,Joint Mobilizations,Manual Therapy, Neuromuscular Re-education, Patient/Caregiver Education, Self-Care/Home Management,Soft Tissue Mobilization, Therapeutic Activities, Therapeutic Exercises, Vestibular Rehabilitation Next Visit Focus/Plan Next Note Type Treatment Note Next Visit Plan Hold add more appt until after Th Follow up [place] appt if having surgery. POC: Continue increase amplitude with gait, balance. POC: Dynamic balance, obstacle mgt /c 4WW, gait training.
--- NOTE | 2024-06-13 11:34 | PT.OTN ---
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 Pt was originally thought to have Parkinson's, had a trial of L- dopa, which had no effect. DDx was eventually changed to potential normal pressure hydrocephalus. Was treated at that facility for the same symptoms September-Jan earlier this year, and discharged prior to attempted treatment for Hydrocephalus in [place]. Pt received a spinal tap that slowly drained for three days to determine if the decreased in CSF helped symptoms. Pt notes that he and his thought he did a little better, but following the procedure, he was fairly debilitated with a headache and was not up moving around, so was told the results were inconclusive and he is unsure of the plan going forward. Pt was hoping for a stent placement. Currently, symptoms have returned to baseline, with fenstinating gait, decreased activity tolerance, and poor dynamic balance, although pt denies any falls. Notes some days he is exhausted and spends the day in bed, other days are better. PT-OP-C Subjective Start: 05/01/24 17:08 Freq: Status: Active Protocol: Document 06/13/24 10:46 SP (Rec: 06/13/24 11:37 SP [id number]) OP-PT Subjective Patient Comments Patient Comments Pt reported saw women in [place], referred to another Dr Pederson Jul 06 and discuss if candidate for surgery brain shunt. He states hoping all can reveiled and help stop shuffling, seem worsening. He does find the card on his 4WW helps and his friends impressed strategy. PT-OP-D Balance Start: 05/01/24 17:08 Freq: Status: Active Protocol: Document 05/01/24 16:20 DCW (Rec: 05/01/24 17:49 DCW [id number]) OP-PT Balance Assessment Standing Balance Static Standing Balance Ability Normal Dynamic Standing Balance Ability Fair Device Used 4WW Balance Tests Coon Balance Test Coon Balance Test Score 51/56 Coon Impairment Rating 1 to 19% Impaired (Score 45-55 ) Coon Balance Assessment Evaluation Sitting to Standing Ability Independent w/out Hands Unsupported Stance Safely- 2 minutes Sitting Unsupported, Feet on Floor Safely- 2 minutes Standing to Sitting Ability Safely, Minimal Hand Use Transfer Ability Safely, Minimal Hand Use Unsupported Stance- Eyes Closed Supervision, 10 seconds Unsupported Stance- Eyes Open Supervision to maintain Reaching Forward Standing Safely, 5 inches Pick- Up Object From Floor Independent/Safe Look Behind Shoulder - Standing Shifts Weight Well Turning 360 Degrees Turns , < 4 secs Unsupported Stance, Alternating Feet on (I)- 8 Steps in 20 secs Stair Unsupported Tandem Stance Achieves Tandem Unilateral Leg Stance Lifts Leg/Holds 5-10 secs Total Score Coon Total Score (out of 56 points) 51 Coon Impairment Rating 1 to 19% Impaired (Score 45-55 ) Fernandez Fall Scale Copyright Permission PT-OP-E Functional Tests Start: 05/01/24 17:08 Freq: Status: Active Protocol: Document 05/01/24 16:20 DCW (Rec: 05/01/24 17:49 DCW [id number]) Functional Tests Dynamic Gait Index (DGI) Score 1524 DGI Impairment Rating 20 to <40% Impaired (Score 15- 19) PT-OP-G Mobility & Gait Start: 05/01/24 17:50 Freq: Status: Active Protocol: Document 05/01/24 16:20 DCW (Rec: 05/01/24 17:52 DCW [id number]) OP Gait Assessment Assistive Devices Assistive Device 4 Wheeled Walker Gait Deviations General Gait Pattern Ataxic,Decreased Stride Length ,Decreased Feet Clearance, Festinating,Narrow Based Gait Comments Gait Comments Pt ambulates with a festinating gait pattern. Very short, shuffling steps, narrow KAREN. Uses 4WW for most ambulation, will frequently flex at trunk, allowing walker to start getting out farther in front of himself. PT-OP-Q Treatments Start: 05/01/24 17:08 Freq: Status: Active Protocol: Document 06/13/24 10:46 SP (Rec: 06/13/24 11:37 SP [id number]) Cardio Equipment Recumbent Stepper (Sci-Fit) Duration (Minutes) 6 Resistance 4 Seat Position 14 Other BUEs& BLEs- 43-45 RPMs- cued big quicker strides Gym Equipment Shuttle Recovery unilateral squat Details L leg not as strong today Resistance 50# (2 navy) Reps/Time 10 L, 15 R bilateral squat Resistance 87# 3 navy Reps/Time 15 reps Shuttle Balance Red Details WBOS, NBOS, Staggered Reps/Duration CG-10% A Comments WBOS: wt shift, stationary HTs , EC up to 5 sec NBOS: wt shfit, HTs Stagger Stance: wt shift, HTs- higher Min A R ft fwd Therapeutic Exercises Sitting Exercises STS Sitting Exercise Name Increased amplitude arms at side ER into stand Resistance arms front Equipment Used mesh chair, foam under feet Reps/Minutes x10 Comments cued scoot front seat, full hip ext&TKE standing, controlled soft sit. Therapeutic Activity Therapeutic Activity transfers /c 4WW Name between chairs Reps/Minutes 6 Comments BIG steps pivot back up Gait Training Gait Activity dynamic gait Description retro stepping, fwd HTs, BIG step walking /c arm swing Device Used open area Level of Assistance CGA Distance/Duration 50 ft x2 laps Treatment Focus posture, stride, ft clearance, midline stability Neuro Re-Education Treatment Balance Activities uneven surface Details step taps Surface 5# leg wt Equipment inside //bars PRN x2 bal recovery Reps/Duration 20 reps alternating Comments cued soft tap return hurdles Details receiprocal fwd stepping Equipment 6 hurdles, 5# leg wts Reps/Duration // bars Comments PRN contact rail, cued trail LE clearance PT-OP-T Assessment and Plan Start: 05/01/24 17:08 Freq: Status: Active Protocol: Document 06/13/24 10:46 SP (Rec: 06/13/24 11:37 SP [id number]) Physical Therapy Assessment Goals Two Impairment Pt scores a 15/24 on the DGI Alf Goal (LTG) Pt to increase DGI score by at least five points to 20/24 in order to decrease fall risk during dynamic gait LTG Duration 07/03/24 One Impairment Pt does not have an appropriate home exercise program Short Term Goal (STG) Pt to be independent and compliant with an appropriate HEP STG Duration 06/01/24 Assessment Summary Assessment Pt improved strengthening 5lb wt BLE, able to progress uneven surface step taps without UE support and alix stepping, trail heel and toe catch x4 instances Min A/rail support recovery, cues for upright posturing allow LE clearance. Continued gait arms swing and bigger steps after weighted ther ex and BIG steps during pivot turns step back to chairs improved with reps and demo follow, discussed continue as homework. Physical Therapy Plan Frequency and Duration Frequency of Treatment 2x/Week Plan of Care Start Date 05/01/24 Plan of Care End Date 07/02/24 Therapeutic Interventions Therapeutic Interventions Balance Training,Coordination Training,Gait Training,Home Exercise Program,Joint Mobilizations,Manual Therapy, Neuromuscular Re-education, Patient/Caregiver Education, Self-Care/Home Management,Soft Tissue Mobilization, Therapeutic Activities, Therapeutic Exercises, Vestibular Rehabilitation Next Visit Focus/Plan Next Note Type Treatment Note Next Visit Plan 2 more visits, PT to discuss if continuing PT. POC: Continue increase amplitude with gait, balance. POC: Dynamic balance, obstacle mgt /c 4WW, gait training.
--- NOTE | 2024-06-19 16:05 | PT.OTN ---
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 Pt was originally thought to have Parkinson's, had a trial of L- dopa, which had no effect. DDx was eventually changed to potential normal pressure hydrocephalus. Was treated at that facility for the same symptoms September-Jan earlier this year, and discharged prior to attempted treatment for Hydrocephalus in [place]. Pt received a spinal tap that slowly drained for three days to determine if the decreased in CSF helped symptoms. Pt notes that he and his thought he did a little better, but following the procedure, he was fairly debilitated with a headache and was not up moving around, so was told the results were inconclusive and he is unsure of the plan going forward. Pt was hoping for a stent placement. Currently, symptoms have returned to baseline, with fenstinating gait, decreased activity tolerance, and poor dynamic balance, although pt denies any falls. Notes some days he is exhausted and spends the day in bed, other days are better. PT-OP-C Subjective Start: 05/01/24 17:08 Freq: Status: Active Protocol: Document 06/19/24 15:15 DCW (Rec: 06/19/24 16:05 DCW [id number]) OP-PT Subjective Patient Comments Patient Comments Pt continues to have some difficulty with increasing step length. PT-OP-D Balance Start: 05/01/24 17:08 Freq: Status: Active Protocol: Document 05/01/24 16:20 DCW (Rec: 05/01/24 17:49 DCW [id number]) OP-PT Balance Assessment Standing Balance Static Standing Balance Ability Normal Dynamic Standing Balance Ability Fair Device Used 4WW Balance Tests Coon Balance Test Coon Balance Test Score 51/56 Coon Impairment Rating 1 to 19% Impaired (Score 45-55 ) Coon Balance Assessment Evaluation Sitting to Standing Ability Independent w/out Hands Unsupported Stance Safely- 2 minutes Sitting Unsupported, Feet on Floor Safely- 2 minutes Standing to Sitting Ability Safely, Minimal Hand Use Transfer Ability Safely, Minimal Hand Use Unsupported Stance- Eyes Closed Supervision, 10 seconds Unsupported Stance- Eyes Open Supervision to maintain Reaching Forward Standing Safely, 5 inches Pick- Up Object From Floor Independent/Safe Look Behind Shoulder - Standing Shifts Weight Well Turning 360 Degrees Turns , < 4 secs Unsupported Stance, Alternating Feet on (I)- 8 Steps in 20 secs Stair Unsupported Tandem Stance Achieves Tandem Unilateral Leg Stance Lifts Leg/Holds 5-10 secs Total Score Coon Total Score (out of 56 points) 51 Coon Impairment Rating 1 to 19% Impaired (Score 45-55 ) Fernandez Fall Scale Copyright Permission PT-OP-E Functional Tests Start: 05/01/24 17:08 Freq: Status: Active Protocol: Document 05/01/24 16:20 DCW (Rec: 05/01/24 17:49 DCW [id number]) Functional Tests Dynamic Gait Index (DGI) Score 1524 DGI Impairment Rating 20 to <40% Impaired (Score 15- 19) PT-OP-G Mobility & Gait Start: 05/01/24 17:50 Freq: Status: Active Protocol: Document 05/01/24 16:20 DCW (Rec: 05/01/24 17:52 DCW [id number]) OP Gait Assessment Assistive Devices Assistive Device 4 Wheeled Walker Gait Deviations General Gait Pattern Ataxic,Decreased Stride Length ,Decreased Feet Clearance, Festinating,Narrow Based Gait Comments Gait Comments Pt ambulates with a festinating gait pattern. Very short, shuffling steps, narrow KAREN. Uses 4WW for most ambulation, will frequently flex at trunk, allowing walker to start getting out farther in front of himself. PT-OP-Q Treatments Start: 05/01/24 17:08 Freq: Status: Active Protocol: Document 06/19/24 15:15 DCW (Rec: 06/19/24 16:05 DCW [id number]) Cardio Equipment Recumbent Stepper (Sci-Fit) Duration (Minutes) 6 Resistance 4 Seat Position 14 Other BUEs& BLEs- 39 RPMs Gym Equipment Shuttle Recovery unilateral squat Resistance 50# (2 navy) Reps/Time 20 L, 17 R bilateral squat Resistance 87# 3 navy Reps/Time 15 reps Therapeutic Exercises Other Exercises Resisted Ambulation Other Exercise Name Resisted stepping: side, fwd, bwd Resistance Green loop Equipment Used no UE support Reps/Minutes 10 ft x3 laps each Comments cued posture, slower pacing, upright posture, DF trail LE clearance Neuro Re-Education Treatment Balance Activities hurdles Details receiprocal fwd, side-stepping Equipment 6 hurdles, 5# leg wts Reps/Duration // bars PRN Foam Details Foam Stance Surface AirEx Equipment rail PRN Comments Stagger stance: EO/EC Balloon kojo PT-OP-T Assessment and Plan Start: 05/01/24 17:08 Freq: Status: Active Protocol: Document 06/19/24 15:15 DCW (Rec: 06/19/24 16:05 DCW [id number]) Physical Therapy Assessment Impairments Impairments Activity Tolerance,Balance, Functional Activities, Functional Mobility,Gait, Posture Goals Two Impairment Pt scores a 15/24 on the DGI Senior Living Goal (LTG) Pt to increase DGI score by at least five points to 20/24 in order to decrease fall risk during dynamic gait LTG Duration 07/03/24 One Impairment Pt does not have an appropriate home exercise program Short Term Goal (STG) Pt to be independent and compliant with an appropriate HEP STG Duration 06/01/24 Assessment Summary Assessment Pt demonstrating minimal progression, although is seeing some improvement in LE strength. Hoping that upcoming consultation will provide better direction. Physical Therapy Plan Frequency and Duration Frequency of Treatment 2x/Week Plan of Care Start Date 05/01/24 Plan of Care End Date 07/02/24 Therapeutic Interventions Therapeutic Interventions Balance Training,Coordination Training,Gait Training,Home Exercise Program,Joint Mobilizations,Manual Therapy, Neuromuscular Re-education, Patient/Caregiver Education, Self-Care/Home Management,Soft Tissue Mobilization, Therapeutic Activities, Therapeutic Exercises, Vestibular Rehabilitation Next Visit Focus/Plan Next Note Type Progress Note Next Visit Plan 2 more visits, PT to discuss if continuing PT. POC: Continue increase amplitude with gait, balance. POC: Dynamic balance, obstacle mgt /c 4WW, gait training.
--- NOTE | 2024-06-28 12:25 | PT.OTN ---
Current Diagnoses Polyneuropathy, unspecified (06/28/24) (Idiopathic) normal pressure hydrocephalus (06/28/24) Unsteadiness on feet (06/28/24) Physical Therapy Treatment Note PT-OP-A Visit Information Start: 05/01/24 17:08 Freq: Status: Active Protocol: Document 06/28/24 11:30 DCW (Rec: 06/28/24 12:25 DCW [id number]) Out-Patient Physical Therapy Visit Information Visit Information Visit Type Treatment Note Visit Start Time 11:30 Visit Stop Time 12:15 Visit Number 11 Number of DIRECTOR OF INSTITUTIONAL SALES Visits 0 Evaluation Information Evaluation Date 05/01/24 PT-OP-B Current Condition Start: 05/01/24 17:08 Freq: Status: Active Protocol: Document 05/01/24 16:20 DCW (Rec: 05/02/24 09:43 DCW [id number]) Current Condition History of Current Condition Current Complaints Decreased balance, festinating gait History of Current Condition Pt is an 83 year old male presenting to skilled therapy with declining balance and festinating gait. Pt was originally thought to have Parkinson's, had a trial of L- dopa, which had no effect. DDx was eventually changed to potential normal pressure hydrocephalus. Was treated at that facility for the same symptoms September-Jan earlier this year, and discharged prior to attempted treatment for Hydrocephalus in [place]. Pt received a spinal tap that slowly drained for three days to determine if the decreased in CSF helped symptoms. Pt notes that he and his thought he did a little better, but following the procedure, he was fairly debilitated with a headache and was not up moving around, so was told the results were inconclusive and he is unsure of the plan going forward. Pt was hoping for a stent placement. Currently, symptoms have returned to baseline, with fenstinating gait, decreased activity tolerance, and poor dynamic balance, although pt denies any falls. Notes some days he is exhausted and spends the day in bed, other days are better. PT-OP-C Subjective Start: 05/01/24 17:08 Freq: Status: Active Protocol: Document 06/28/24 11:30 DCW (Rec: 06/28/24 12:25 DCW [id number]) OP-PT Subjective Patient Comments Patient Comments Still the same. Waiting to see the fancy doctor next Tuesday. PT-OP-D Balance Start: 12/10/24 17:08 Freq: Status: Active Protocol: Document 05/01/24 16:20 DCW (Rec: 05/01/24 17:49 DCW [id number]) OP-PT Balance Assessment Standing Balance Static Standing Balance Ability Normal Dynamic Standing Balance Ability Fair Device Used 4WW Balance Tests Coon Balance Test Coon Balance Test Score 51/56 Coon Impairment Rating 1 to 19% Impaired (Score 45-55 ) Coon Balance Assessment Evaluation Sitting to Standing Ability Independent w/out Hands Unsupported Stance Safely- 2 minutes Sitting Unsupported, Feet on Floor Safely- 2 minutes Standing to Sitting Ability Safely, Minimal Hand Use Transfer Ability Safely, Minimal Hand Use Unsupported Stance- Eyes Closed Supervision, 10 seconds Unsupported Stance- Eyes Open Supervision to maintain Reaching Forward Standing Safely, 5 inches Pick- Up Object From Floor Independent/Safe Look Behind Shoulder - Standing Shifts Weight Well Turning 360 Degrees Turns , < 4 secs Unsupported Stance, Alternating Feet on (I)- 8 Steps in 20 secs Stair Unsupported Tandem Stance Achieves Tandem Unilateral Leg Stance Lifts Leg/Holds 5-10 secs Total Score Coon Total Score (out of 56 points) 51 Coon Impairment Rating 1 to 19% Impaired (Score 45-55 ) Fernandez Fall Scale Copyright Permission PT-OP-E Functional Tests Start: 05/01/24 17:08 Freq: Status: Active Protocol: Document 05/01/24 16:20 DCW (Rec: 05/01/24 17:49 DCW [id number]) Functional Tests Dynamic Gait Index (DGI) Score 15/24 DGI Impairment Rating 20 to <40% Impaired (Score 15- 19) PT-OP-G Mobility & Gait Start: 05/01/24 17:50 Freq: Status: Active Protocol: Document 05/01/24 16:20 DCW (Rec: 05/01/24 17:52 DCW [id number]) OP Gait Assessment Assistive Devices Assistive Device 4 Wheeled Walker Gait Deviations General Gait Pattern Ataxic,Decreased Stride Length ,Decreased Feet Clearance, Festinating,Narrow Based Gait Comments Gait Comments Pt ambulates with a festinating gait pattern. Very short, shuffling steps, narrow KAREN. Uses 4WW for most ambulation, will frequently flex at trunk, allowing walker to start getting out farther in front of himself. PT-OP-Q Treatments Start: 05/01/24 17:08 Freq: Status: Active Protocol: Document 06/28/24 11:30 DCW (Rec: 06/28/24 12:25 DCW [id number]) Cardio Equipment Recumbent Stepper (Sci-Fit) Duration (Minutes) 6 Resistance 4 Seat Position 13 Other BUEs& BLEs- 45 RPMs Gym Equipment Shuttle Recovery unilateral squat Resistance 50# (2 navy) Reps/Time 20 L, 17 R bilateral squat Resistance 87# 3 navy Reps/Time 15 reps Shuttle Balance Red Details WBOS, NBOS, Staggered Reps/Duration CG-10% A Comments WBOS: EO/EC Stagger Stance: wt shift, HTs- higher Min A R ft fwd Sport Cord Blue Exercise Details Lateral Stepping Cord/Resistance Blue/White Comments CGA Neuro Re-Education Treatment Balance Activities SLS Details SLS Equipment // bars Tandem Details Tandem fwd & bwd Ambulation Equipment // bars PT-OP-T Assessment and Plan Start: 05/01/24 17:08 Freq: Status: Active Protocol: Document 06/28/24 11:30 DCW (Rec: 06/28/24 12:25 DCW [id number]) Physical Therapy Assessment Impairments Impairments Activity Tolerance,Balance, Functional Activities, Functional Mobility,Gait, Posture Goals Two Impairment Pt scores a 15/24 on the DGI Halfway Goal (LTG) Pt to increase DGI score by at least five points to 20/24 in order to decrease fall risk during dynamic gait LTG Duration 07/03/24 One Impairment Pt does not have an appropriate home exercise program Short Term Goal (STG) Pt to be independent and compliant with an appropriate HEP STG Duration 06/01/24 Assessment Summary Assessment Pt a little less stable with gait today, feeling like his balance varies a lot day-to- day. Pt agreeable to wait on scheduling more appointments until following his meeting with his potential surgeon next week. Physical Therapy Plan Frequency and Duration Frequency of Treatment 2x/Week Plan of Care Start Date 05/01/24 Plan of Care End Date 07/02/24 Therapeutic Interventions Therapeutic Interventions Balance Training,Coordination Training,Gait Training,Home Exercise Program,Joint Mobilizations,Manual Therapy, Neuromuscular Re-education, Patient/Caregiver Education, Self-Care/Home Management,Soft Tissue Mobilization, Therapeutic Activities, Therapeutic Exercises, Vestibular Rehabilitation Next Visit Focus/Plan Next Note Type Progress Note Next Visit Plan POC: Continue increase amplitude with gait, balance. POC: Dynamic balance, obstacle mgt /c 4WW, gait training.
--- NOTE | 2024-09-12 10:40 | PT.OPDS ---
Current Diagnoses Polyneuropathy, unspecified (06/28/24) (Idiopathic) normal pressure hydrocephalus (06/28/24) Unsteadiness on feet (06/28/24) Visit Care Team Role Provider Type Donnell Mascorro MD Attending Provider Physician Family Provider Primary Care Provider Referring Provider Specialty: Internal Medicine Address: [address] [place] [address], [id number] Email: [email or web address] Visit Number Visit Number 11 Discharge Summary PT-OP-B Current Condition Start: 05/01/24 17:08 Freq: Status: Active Protocol: Document 05/01/24 16:20 DCW (Rec: 05/02/24 09:43 DCW [id number]) Current Condition History of Current Condition Current Complaints Decreased balance, festinating gait History of Current Condition Pt is an 83 year old male presenting to skilled therapy with declining balance and festinating gait. Pt was originally thought to have Parkinson's, had a trial of L- dopa, which had no effect. DDx was eventually changed to potential normal pressure hydrocephalus. Was treated at that facility for the same symptoms September-Jan earlier this year, and discharged prior to attempted treatment for Hydrocephalus in [place]. Pt received a spinal tap that slowly drained for three days to determine if the decreased in CSF helped symptoms. Pt notes that he and his thought he did a little better, but following the procedure, he was fairly debilitated with a headache and was not up moving around, so was told the results were inconclusive and he is unsure of the plan going forward. Pt was hoping for a stent placement. Currently, symptoms have returned to baseline, with fenstinating gait, decreased activity tolerance, and poor dynamic balance, although pt denies any falls. Notes some days he is exhausted and spends the day in bed, other days are better. PT-OP-C Subjective Start: 05/01/24 17:08 Freq: Status: Active Protocol: Document 06/28/24 11:30 DCW (Rec: 06/28/24 12:25 DCW [id number]) OP-PT Subjective Patient Comments Patient Comments Still the same. Waiting to see the fancy doctor next Tuesday. PT-OP-D Balance Start: 05/01/24 17:08 Freq: Status: Active Protocol: Document 05/01/24 16:20 DCW (Rec: 05/01/24 17:49 [facility] [id number]) OP-PT Balance Assessment Standing Balance Static Standing Balance Ability Normal Dynamic Standing Balance Ability Fair Device Used 4WW Balance Tests Coon Balance Test Coon Balance Test Score 51/56 Coon Impairment Rating 1 to 19% Impaired (Score 45-55 ) Coon Balance Assessment Evaluation Sitting to Standing Ability Independent w/out Hands Unsupported Stance Safely- 2 minutes Sitting Unsupported, Feet on Floor Safely- 2 minutes Standing to Sitting Ability Safely, Minimal Hand Use Transfer Ability Safely, Minimal Hand Use Unsupported Stance- Eyes Closed Supervision, 10 seconds Unsupported Stance- Eyes Open Supervision to maintain Reaching Forward Standing Safely, 5 inches Pick- Up Object From Floor Independent/Safe Look Behind Shoulder - Standing Shifts Weight Well Turning 360 Degrees Turns , < 4 secs Unsupported Stance, Alternating Feet on (I)- 8 Steps in 20 secs Stair Unsupported Tandem Stance Achieves Tandem Unilateral Leg Stance Lifts Leg/Holds 5-10 secs Total Score Ocon Total Score (out of 56 points) 51 Coon Impairment Rating 1 to 19% Impaired (Score 45-55 ) Fernandez Fall Scale Copyright Permission PT-OP-E Functional Tests Start: 05/01/24 17:08 Freq: Status: Active Protocol: Document 05/01/24 16:20 DCW (Rec: 05/01/24 17:49 [facility] [id number]) Functional Tests Dynamic Gait Index (DGI) Score 15/24 DGI Impairment Rating 20 to <40% Impaired (Score 15- 19) PT-OP-G Mobility & Gait Start: 05/01/24 17:50 Freq: Status: Active Protocol: Document 05/01/24 16:20 DCW (Rec: 05/01/24 17:52 DCW [id number]) OP Gait Assessment Assistive Devices Assistive Device 4 Wheeled Walker Gait Deviations General Gait Pattern Ataxic,Decreased Stride Length ,Decreased Feet Clearance, Festinating,Narrow Based Gait Comments Gait Comments Pt ambulates with a festinating gait pattern. Very short, shuffling steps, narrow KAREN. Uses 4WW for most ambulation, will frequently flex at trunk, allowing walker to start getting out farther in front of himself. PT-OP-T Assessment and Plan Start: 05/01/24 17:08 Freq: Status: Active Protocol: Document 09/12/24 10:39 DCW (Rec: 09/12/24 10:40 DCW [id number]) Physical Therapy Assessment Assessment Summary Assessment Pt has not been seen in more than two months. At last check -in, pt wanted to wait until meeting with a potential surgeon before scheduling more . Pt has now not been seen in more than two months. Pt will require a new referral in order to return to skilled therapy in the future. Physical Therapy Plan Discharge Physical Therapy Discharge Reasons No Longer Attending PT Next Visit Focus/Plan Next Note Type Discharge Summary
== END 2024-09-13 08:53 | disposition home or self-care (01) ==
LOC: PHYS 15:15
PROVIDERS: Family Provider Internal Medicine; PCP Internal Medicine; Referring Provider Internal Medicine; Visit Provider Internal Medicine
DX: R26.81 Unsteadiness on feet (principal); G62.9 Polyneuropathy, unspecified; G91.2 (Idiopathic) normal pressure hydrocephalus
CPT/HCPCS: 97110; 97112; 97116; 97163; 97530

== ENCOUNTER → 2024-08-07 14:45 | Outpatient (CLI) | payer MEDICARE, OTHER, SELFPAY ==
[2023-08-01 15:24] VITALS: BMI 20.6
[2024-08-07 15:22] LABS: Hematocrit 39.9 % (41-53); Hemoglobin 13.4 g/dL (13.5-17.5); Mean Corpuscular HGB Conc 33.5 % (30-36); Mean Corpuscular Hemoglobin 30.5 PG (26-34); Mean Corpuscular Volume 90.9 fL (80-100); Platelet Count 286 X10^3/uL (150-400); Red Blood Cell Count 4.39 X10^6/uL (4.5-5.9); Red Cell Distribution Width 13.8 % (11.6-14.8); White Blood Cell Count 6.7 X10^3/uL (4.5-11.0)
[2024-08-07 15:49] LABS: Alanine Aminotransferase 25 IU/L (<50); Albumin 4.1 g/dL (3.5-5.0); Albumin Globulin Ratio 1.8 (1.0-2.8); Alkaline Phosphatase 86 U/L (38-126); Aspartate Aminotransferase 29 IU/L (17-59); BUN Creatinine Ratio 17.6 (6-22); Bilirubin Total 0.7 mg/dL (0.2-1.3); Blood Urea Nitrogen 16 mg/dL (9-20); Calcium 9.8 mg/dL (8.4-10.2); Carbon Dioxide 25 mmol/L (22-32); Chloride 103 mmol/L (98-107); Cholesterol 186 mg/dL (140-199); Estimated Glomerular Filt Rate > 60 mL/min (>60); Globulin 2.3 g/dL (1.7-4.1); Glucose 102 mg/dL (80-110); HDL Cholesterol 72 mg/dL (40-60); HEMOLYSIS < 15 (0-50); LDL Cholesterol Calculated 97 mg/dL (<100); Potassium 4.2 mmol/L (3.4-5.1); Sodium 135 mmol/L (137-145); Total Protein 6.4 g/dL (6.3-8.2); Triglycerides 83 mg/dL (35-150)
== END ==
PROVIDERS: Family Provider Internal Medicine; PCP Internal Medicine; Referring Provider Internal Medicine; Visit Provider Internal Medicine
DX: G91.2 (Idiopathic) normal pressure hydrocephalus (principal); N40.0 Benign prostatic hyperplasia without lower urinary tract symptoms
CPT/HCPCS: 36415; 80053; 80061; 84153; 85027

== ENCOUNTER 2024-10-11 08:53 | Outpatient (RCR) | payer MEDICARE, OTHER, SELFPAY ==
[2023-08-01 15:24] VITALS: BMI 20.6
--- NOTE | 2024-10-11 11:04 | OT.OP.EVAL ---
Visit Care Team Role Provider Type Donnell Mascorro MD Family Provider Physician Primary Care Provider Specialty: Internal Medicine Address: [address] [place] [address], [id number] Email: [email or web address] JOELLEN Camp Attending Provider Non-Staff Referring Provider Specialty: Neurosurgery Address: [address] [place] [address], [place], [address] Email: Occupational Therapy Initial Evaluation OT Outpatient Adult Evaluation Start: 10/11/24 10:50 Freq: Status: Active Protocol: Document 10/11/24 10:50 AMS (Rec: 10/11/24 11:04 AMS Desktop) General Information - Adult Visit Start Time 09:05 Visit Stop Time 09:35 Treatment Setting Outpatient Care Note Type Initial Evaluation Assessment/Plan Treatment Assessment Hank Montana, reported shunt placement September 24, 2024, secondary to dx of hydrocephalus. He resides w/ Bradford. She has been assisting more since surgery; she assists w/ driving, house management and meal preparation. The couple no longer has [place] He has been retired since 1996. 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 He also reports not working in yard surrounding the home given decreased stamina, balance concerns, and headaches. Ambulating w/ walker; poor posture w/ use of walker; likely to benefit from increased height. No difficulties w/ s-s from mat and/or chair; little effort noted. Single UE assist w/ s-s . QuickDASH UE Outcome Measure Score = 20.45. He demonstrates good B UE AROM ; no functional ROM limitations observed. No functional UE ROM limitations reported. He demonstrates good , age-appropriate UE strength. R sh flex; L sh flex MMT 5/5. R sh ext; L sh ext MMT 5/5. R sh abd; L sh abd MMT 5/5. R sh add; L sh add MMT 5/5. R elbow flex; L elbow flex MMT 5 /5. R elbow ext; L elbow ext MMT 5/5. Dynamometer II Strength Testing Results with elbow in 90 degrees Flexion = R bowling or skating front desk clerk 79.0# of force versus L bowling or skating front desk clerk 67.0# of force. Dynamometer II Strength Testing Results with Elbow Extended = R bowling or skating front desk clerk 83.0# of force versus L bowling or skating front desk clerk 70.0# of force. Lateral Berg Pinch = R lateral pinch 14.5# of force versus L lateral pinch 15.5# of force. Tip Pinch = R tip pinch 11.5# of force versus L tip pinch 12.0# of force. 3- Jaw Pinch = R 3-jaw pinch #11. 5 of force versus L 3-jaw pinch 15.0# of force. No further OT is needed; rec consideration of PT for balance concerns to address weakness, reduced endurance. Patient Recommendations Discharge from Occupational Therapy
== END 2024-10-17 10:22 | disposition home or self-care (01) ==
LOC: OT 08:53
PROVIDERS: Family Provider Internal Medicine; PCP Internal Medicine; Referring Provider Nurse Practitioner Adult Health; Visit Provider Nurse Practitioner Adult Health
DX: G91.2 (Idiopathic) normal pressure hydrocephalus (principal)
CPT/HCPCS: 97165

== ENCOUNTER → 2024-10-13 14:44 | Outpatient (CLI) | payer MEDICARE, OTHER, SELFPAY ==
[2023-08-01 15:24] VITALS: BMI 20.6
--- NOTE | 2024-10-13 14:47 | DI.CT.S_ITS ---
PROCEDURE: CT HEAD/BRAIN WO CON INDICATIONS: eval shunt TECHNIQUE: Noncontrast 4.5 mm thick angled axial sections acquired from the foramen magnum to the vertex, with coronal and sagittal reformats. For radiation dose reduction, the following was used: automated exposure control, adjustment of mA and/or kV according to patient size. COMPARISON: [facility], CT, CT HEAD/BRAIN WO CON, 02/25/2024, 13:57. FINDINGS: Image quality: Diagnostic CSF spaces: Cavum septum pellucidum and vergae. Ventricular configuration is similar to prior, with [id number] dilation of the lateral ventricles and 3rd ventricle. A right posterior approach shunt is seen, with tip near the foramen of Monro. Volume: Vascular calcifications. 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 Volume loss is present. These findings are xjef-se-wqpqniix Brain: No acute loss of jimenez-white differentiation. No acute hyperdensity to suggest hemorrhage. Craniofacial structures: Intact appearance of the shunt catheter within the right posterior scalp. Partial opacification of the paranasal sinuses, with postsurgical changes. IMPRESSION: Similar ventricular configuration. Right posterior approach shunt catheter terminates near the foramen of Monro. Cavum septum pellucidum and vergae again seen. No acute hemorrhage. Patent basal cisterns. Dictated by: Erick Espitia M.D. on 10/13/2024 at 19:37 Approved by: Erick Espitia M.D. on 10/13/2024 at 19:40
== END ==
PROVIDERS: Family Provider Internal Medicine; PCP Internal Medicine; Referring Provider Family Medicine; Visit Provider Family Medicine
DX: G91.2 (Idiopathic) normal pressure hydrocephalus (principal); Z98.2 Presence of cerebrospinal fluid drainage device; Q75.8 Other specified congenital malformations of skull and face bones
CPT/HCPCS: 70450

== ENCOUNTER → 2024-11-14 10:48 | Outpatient (CLI) | payer MEDICARE, OTHER, SELFPAY ==
[2023-08-01 15:24] VITALS: BMI 20.6
--- NOTE | 2024-11-14 10:50 | DI.CT.S_ITS ---
PROCEDURE: CT HEAD/BRAIN WO CON INDICATIONS: HYDROCEPHALUS TECHNIQUE: Noncontrast 4.5 mm thick angled axial sections acquired from the foramen magnum to the vertex, with coronal and sagittal reformats. For radiation dose reduction, the following was used: automated exposure control, adjustment of mA and/or kV according to patient size. COMPARISON: [facility], CT, CT HEAD/BRAIN WO CON, 10/13/2024, 15:08. FINDINGS: Image quality: Diagnostic. CSF spaces: Cavum septum plate lucent omit variegated is redemonstrated. A right parietal ventriculostomy catheter is present and in similar location on the comparison CT dated October 13, 2024 mild to moderate hydrocephalus is redemonstrated, unchanged from the prior study. Brain: No intracranial bleeds or mass effect. There is cerebral volume loss, with resultant ventricular and sulcal prominence. There are periventricular and deep white matter chronic small vessel ischemic changes. There is intracranial internal carotid artery atherosclerosis. Skull and face: Calvarium and visualized facial bones appear intact, without suspicious lesions. Sinuses: Visualized sinuses and mastoids are clear. IMPRESSION: Unchanged hydrocephalus when compared with the CT dated October 13, 2024. No acute intracranial findings. Dictated by: Philly Vines M.D. on 11/14/2024 at 12:23 Approved by: Philly Vines M.D. on 11/14/2024 at 12:25
== END ==
LOC: CT 10:49
PROVIDERS: Family Provider Internal Medicine; PCP Internal Medicine; Referring Provider Family Medicine; Visit Provider Family Medicine
DX: G91.2 (Idiopathic) normal pressure hydrocephalus (principal); I65.29 Occlusion and stenosis of unspecified carotid artery; Z98.2 Presence of cerebrospinal fluid drainage device
CPT/HCPCS: 70450

== ENCOUNTER 2025-02-19 11:30 | Outpatient (RCR) | payer MEDICARE, OTHER, SELFPAY ==
[2023-08-01 15:24] VITALS: BMI 20.6
--- NOTE | 2024-10-26 10:30 | PT.OIE ---
Current Diagnoses (Idiopathic) normal pressure hydrocephalus (10/26/24) Past Medical History (Last Reviewed 10/08/24 @ 15:16 by Donnell Mascorro MD) Allergic rhinitis due to pollen B12 deficiency BPH without obstruction/lower urinary tract symptoms Carotid atherosclerosis Gait instability Mild intermittent asthma NPH (normal pressure hydrocephalus) Polyneuropathy Ventral hernia Past Surgical History (Last Updated 10/08/24 @ 15:31 by Donnell Mascorro MD) History of colectomy History of transurethral resection of prostate S/P TERMITE EXTERMINATOR shunt (09/24/24) Visit Care Team Role Provider Type Donnell Mascorro MD Family Provider Physician Primary Care Provider Specialty: Internal Medicine Address: [address] [place] [address], [address] Email: [email or web address] JOELLEN Camp Attending Provider Non-Staff Referring Provider Specialty: Neurosurgery Address: [address] [place] [address], [place], [address] Email: Physical Therapy Initial Evaluation PT-OP-A Visit Information Start: 10/26/24 10:44 Freq: Status: Active Protocol: Document 10/26/24 09:45 DCW (Rec: 10/26/24 11:01 DCW [id number]) Out-Patient Physical Therapy Visit Information Visit Information Visit Type Initial Evaluation Visit Note Student PT Kavehrohit GonsalezMuro participated in treatment session w/ PT direct supervision and direction Visit Start Time 09:45 Visit Stop Time 10:27 Visit Number 1 Number of WAREHOUSE DISTRIBUTION SPECIALIST Visits 0 Evaluation Information Evaluation Date 10/26/24 PT-OP-B Current Condition Start: 10/26/24 10:44 Freq: Status: Active Protocol: Document 10/26/24 09:45 DCW (Rec: 10/26/24 11:01 DCW [id number]) Current Condition History of Current Condition Onset Date 09/24/24 Current Complaints Slow, shuffling gait, poor balance History of Current PT is an 83 year old male presenting to skilled therapy Condition one month s/p shunt placement for Normal Pressure Hydrocephalus. Pt was initially diagnosed with Parkinson's, due to severe shuffling gait and poor balance, however failed to respond to any pharmacological treatment. Beginning more than one year ago, diagnosis changed to NPH, and pt was sent to out- patient PT at that time. 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 Pt finally was able to undergo shunt placement for treatment of his hydrocephalus. Pt reports he felt great for one week, then his symptoms slowly began to return. Pt now feeling like he has returned to his same level of function prior to shunt placement, however his and friends all claim he is moving much better. Underwent adjustment of shunt valve 10/22/24, hoping increasing flow will help decrease symptoms again. Pt's goal is to get back to his prior level of function and walking without an assistive device. Admits he still needs cuing from his to increase step length and stay closer to his 4WW. PT-OP-C Subjective Start: 10/26/24 10:44 Freq: Status: Active Protocol: Document 10/26/24 09:45 DCW (Rec: 10/26/24 11:01 DCW [id number]) OP-PT Subjective Patient Comments Patient Comments It seems to vary, some days I feel great, some day I feel like I've gone back to the worst of it. Patient Questionnaires Dizziness Handicap Inventory DHI Score 56% PT-OP-D Balance Start: 10/26/24 10:44 Freq: Status: Active Protocol: Document 10/26/24 09:45 LFG (Rec: 10/26/24 16:29 LFG [id number]) Coon Balance Assessment Evaluation Sitting to Standing Independent w/out Hands Ability Unsupported Stance Supervision- 2 minutes Sitting Unsupported, Safely- 2 minutes Feet on Floor Standing to Sitting Safely, Minimal Hand Use Ability Transfer Ability Safely, Minimal Hand Use Unsupported Stance- Supervision, 10 seconds Eyes Closed Unsupported Stance- Supervision to maintain Eyes Open Reaching Forward Safely, 5 inches Standing Pick- Up Object From Supervision Floor Look Behind Shoulder Supervision w/Turning - Standing Turning 360 Degrees Turns slowly, but safely Unsupported Stance, (I)- 8 Steps in > 20 secs Alternating Feet on Stair Unsupported Tandem Holds Tandem- 30 seconds Stance Unilateral Leg Lifts Leg/Holds > 3 secs Stance Total Score Coon Total Score ( 42 out of 56 points) Coon Impairment 20 to 39% Impaired (Score 34-44) Rating PT-OP-E Functional Tests Start: 10/26/24 10:44 Freq: Status: Active Protocol: Document 10/26/24 09:45 LFG (Rec: 10/26/24 13:00 LFG [id number]) Functional Tests Timed Up and Go (TUG) Score 14.72s 3 trial avg Comments 15.45s, 14.38s, 14.33s TUG Impairment 40 to <60% Impaired (Score 14-15) Rating PT-OP-M Strength Start: 10/26/24 10:44 Freq: Status: Active Protocol: Document 10/26/24 09:45 LFG (Rec: 10/26/24 16:29 LFG [id number]) Hip Strength Hip Manual Muscle Testing Right Flexion (L2) 4+ Good+ Extension (S1) 3+ Fair+ Abduction 3+ Fair+ Adduction 4- Good- External Rotation 4 Good Internal Rotation 4 Good Left Flexion (L2) 4+ Good+ Extension (S1) 3+ Fair+ Abduction 3+ Fair+ Adduction 4- Good- External Rotation 4 Good Internal Rotation 4 Good Knee Strength Knee Manual Muscle Testing Right Flexion (S2) 4- Good- Extension (L3) 4 Good Left Flexion (S2) 4- Good- Extension (L3) 4 Good Ankle/Foot Strength Ankle and Foot Manual Muscle Testing Right Dorsiflexion (L4) 4- Good- Plantarflexion (S1) 4 Good Left Dorsiflexion (L4) 4- Good- Plantarflexion (S1) 4 Good PT-OP-T Assessment and Plan Start: 10/26/24 10:44 Freq: Status: Active Protocol: Document 10/26/24 09:45 DCW (Rec: 10/29/24 09:51 DCW [id number]) Physical Therapy Assessment Rehab Potential Rehabilitation Good Potential Evaluation Complexity Number of Personal 3 or More Factors/ Comorbidities Number of Body 4 or More Systems Impaired Clinical Unstable Presentation at Evaluation Impairments Impairments Activity Tolerance,Balance,Coordination,Functional Activities,Functional Mobility,Gait,Strength,Tone, Transfers Goals Three Impairment Pt exhibits shuffling, festinating gait pattern upon initiation of gait Anesthesia Associate Goal (LTG) Pt to decrease tendency of shuffling gait to <30% of the time when initiating movement without verbal cues LTG Duration 12/26/24 Two Impairment Coon Score (42/56) and TUG (14.7) indicative of increased falls risk Anesthesia Associate Goal (LTG) Pt to improve Coon Balance score by at least four points to 46/56 in order to exhibit a reduced falls risk LTG Duration 12/26/24 One Impairment Pt is not compliant with current home exercise program Short Term Goal (STG PT to be compliant and independent with an appropriate ) HEP STG Duration 11/25/24 Assessment Summary Assessment Pt presents with signs and symptoms consistent with referring diagnosis. Pt does appear to have improved some since his stunt placement, however does still exhibit the same symptoms, just at less severity. Coon and TUG scores both indicate a continued increased falls risk, and pt's displays bilateral LE weakness. Pt gait continues to be a festinating, shuffling gait, especially when initiating movement, however does well with normalizing gait pattern with verbal cuing. Pt has demonstrated some mild improvement with his symptoms in the past during PT, hopeful to see increased improvements after stunt placement, especially with recent adjustment. Pt will likely benefit from skilled therapeutic intervention focusing on strengthening, static and dynamic balance challenges, gait training, and improving activity tolerance. Physical Therapy Plan Frequency and Duration Frequency of 2x/Week Treatment Plan of Care Start 10/26/24 Date Plan of Care End 12/26/24 Date Therapeutic Interventions Therapeutic Balance Training,Gait Training,Home Exercise Program, Interventions Manual Therapy,Neuromuscular Re-education,Orthotic/ Prosthetic Management,Patient/Caregiver Education,Self- Care/Home Management,Soft Tissue Mobilization, Therapeutic Activities,Therapeutic Exercises,Vestibular Rehabilitation Next Visit Focus/Plan Next Note Type Treatment Note Next Visit Plan Balance challenges, strengthening
--- NOTE | 2024-10-26 10:30 | PT.OPPOC ---
Physical, Occupational & Speech Therapy At [facility] Current Diagnoses (Idiopathic) normal pressure hydrocephalus (10/26/24) Visit Care Team Role Provider Type Donnell Mascorro MD Family Provider Physician Primary Care Provider Specialty: Internal Medicine Address: [address] [place] [address], [id number] Email: [email or web address] JOELLEN Camp Attending Provider Non-Staff Referring Provider Specialty: Neurosurgery Address: [address] [place] [address] [address] [facility], [place], [address] Email: Plan Of Care PT-OP-B Current Condition Start: 10/26/24 10:44 Freq: Status: Active Protocol: Document 10/26/24 09:45 DCW (Rec: 10/26/24 11:01 DCW [id number]) Current Condition History of Current Condition Onset Date 09/24/24 Current Complaints Slow, shuffling gait, poor balance History of Current PT is an 83 year old male presenting to [facility] therapy Condition one month s/p shunt placement for Normal Pressure Hydrocephalus. Pt was initially diagnosed with Parkinson's, due to severe shuffling gait and poor balance, however failed to respond to any pharmacological treatment. Beginning more than one year ago, diagnosis changed to NPH, and pt was sent to out- patient PT at that time. 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 Pt finally was able to undergo shunt placement for treatment of his hydrocephalus. Pt reports he felt great for one week, then his symptoms slowly began to return. Pt now feeling like he has returned to his same level of function prior to shunt placement, however his and friends all claim he is moving much better. Underwent adjustment of shunt valve 10/22/24, hoping increasing flow will help decrease symptoms again. Pt's goal is to get back to his prior level of function and walking without an assistive device. Admits he still needs cuing from his to increase step length and stay closer to his 4WW. PT-OP-T Assessment and Plan Start: 10/26/24 10:44 Freq: Status: Active Protocol: Document 10/26/24 09:45 DC (Rec: 10/29/24 09:51 DC [id number]) Physical Therapy Assessment Rehab Potential Rehabilitation Good Potential Evaluation Complexity Number of Personal 3 or More Factors/ Comorbidities Number of Body 4 or More Systems Impaired Clinical Unstable Presentation at Evaluation Impairments Impairments Activity Tolerance,Balance,Coordination,Functional Activities,Functional Mobility,Gait,Strength,Tone, Transfers Goals Three Impairment Pt exhibits shuffling, festinating gait pattern upon initiation of gait Alf Goal (LTG) Pt to decrease tendency of shuffling gait to <30% of the time when initiating movement without verbal cues LTG Duration 12/26/24 Two Impairment Coon Score (42/56) and TUG (14.7) indicative of increased falls risk Alf Goal (LTG) Pt to improve Coon Balance score by at least four points to 46/56 in order to exhibit a reduced falls risk LTG Duration 12/26/24 One Impairment Pt is not compliant with current home exercise program Short Term Goal (STG PT to be compliant and independent with an appropriate ) HEP STG Duration 11/25/24 Assessment Summary Assessment Pt presents with signs and symptoms consistent with referring diagnosis. Pt does appear to have improved some since his stunt placement, however does still exhibit the same symptoms, just at less severity. Coon and TUG scores both indicate a continued increased falls risk, and pt's displays bilateral LE weakness. Pt gait continues to be a festinating, shuffling gait, especially when initiating movement, however does well with normalizing gait pattern with verbal cuing. Pt has demonstrated some mild improvement with his symptoms in the past during PT, hopeful to see increased improvements after stunt placement, especially with recent adjustment. Pt will likely benefit from skilled therapeutic intervention focusing on strengthening, static and dynamic balance challenges, gait training, and improving activity tolerance. Physical Therapy Plan Frequency and Duration Frequency of 2x/Week Treatment Plan of Care Start 10/26/24 Plan of Care End 12/26/24 Date Therapeutic Interventions Therapeutic Balance Training,Gait Training,Home Exercise Program, Interventions Manual Therapy,Neuromuscular Re-education,Orthotic/ Prosthetic Management,Patient/Caregiver Education,Self- Care/Home Management,Soft Tissue Mobilization, Therapeutic Activities,Therapeutic Exercises,Vestibular Rehabilitation Next Visit Focus/Plan Next Note Type Treatment Note Next Visit Plan Balance challenges, strengthening Plan of Care Dates Plan of Care Start Date 10/26/24 Plan of Care End Date 12/26/24 Electronically Signed by: Jarrod Chiu, PT 10/29/24 0954 If you are in agreement with this Plan of Care, please return a signed and dated copy. I have reviewed this Plan of Care and certify that the skilled therapy services above are required to meet the patient?s needs. Physician Signature Date Printed Name and Credentials Clinical Instructor Signature Printed Name and Credentials
--- NOTE | 2024-10-30 09:55 | PT.OTN ---
Addendum entered and electronically signed by Jarrod Chiu, PT 10/30/24 10:03: PT direct supervision and direction to student PT Kaveh Muro throughout session Original Note: Current Diagnoses (Idiopathic) normal pressure hydrocephalus (10/29/24) Physical Therapy Treatment Note PT-OP-A Visit Information Start: 10/26/24 10:44 Freq: Status: Active Protocol: Document 10/29/24 10:45 LFG (Rec: 10/29/24 12:11 LFG [id number]) Out-Patient Physical Therapy Visit Information Visit Information Visit Type Treatment Note Visit Start Time 10:45 Visit Stop Time 11:25 Visit Number 2 Number of GROUND SCHOOL INSTRUCTOR Visits 0 Evaluation Information Evaluation Date 10/26/24 PT-OP-B Current Condition Start: 10/26/24 10:44 Freq: Status: Active Protocol: Document 10/26/24 09:45 DCW (Rec: 10/26/24 11:01 DCW [id number]) Current Condition History of Current Condition Onset Date 09/24/24 Current Complaints Slow, shuffling gait, poor balance History of Current PT is an 83 year old male presenting to [facility] therapy Condition one month s/p shunt placement for Normal Pressure Hydrocephalus. Pt was initially diagnosed with Parkinson's, due to severe shuffling gait and poor balance, however failed to respond to any pharmacological treatment. Beginning more than one year ago, diagnosis changed to NPH, and pt was sent to out- patient PT at that time. 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 Pt finally was able to undergo shunt placement for treatment of his hydrocephalus. Pt reports he felt great for one week, then his symptoms slowly began to return. Pt now feeling like he has returned to his same level of function prior to shunt placement, however his and friends all claim he is moving much better. Underwent adjustment of shunt valve 10/22/24, hoping increasing flow will help decrease symptoms again. Pt's goal is to get back to his prior level of function and walking without an assistive device. Admits he still needs cuing from his to increase step length and stay closer to his 4WW. PT-OP-C Subjective Start: 10/26/24 10:44 Freq: Status: Active Protocol: Document 10/29/24 10:45 LFG (Rec: 10/29/24 12:11 LFG [id number]) OP-PT Subjective Patient Comments Patient Comments Pt reports feeling good today, mentions that he is here and ready to learn how to walk again PT-OP-D Balance Start: 10/26/24 10:44 Freq: Status: Active Protocol: Document 10/26/24 09:45 LFG (Rec: 10/26/24 16:29 LFG [id number]) Coon Balance Assessment Evaluation Sitting to Standing Independent w/out Hands Ability Unsupported Stance Supervision- 2 minutes Sitting Unsupported, Safely- 2 minutes Feet on Floor Standing to Sitting Safely, Minimal Hand Use Ability Transfer Ability Safely, Minimal Hand Use Unsupported Stance- Supervision, 10 seconds Eyes Closed Unsupported Stance- Supervision to maintain Eyes Open Reaching Forward Safely, 5 inches Standing Pick- Up Object From Supervision Floor Look Behind Shoulder Supervision w/Turning - Standing Turning 360 Degrees Turns slowly, but safely Unsupported Stance, (I)- 8 Steps in > 20 secs Alternating Feet on Stair Unsupported Tandem Holds Tandem- 30 seconds Stance Unilateral Leg Lifts Leg/Holds > 3 secs Stance Total Score Coon Total Score ( 42 out of 56 points) Coon Impairment 20 to 39% Impaired (Score 34-44) Rating PT-OP-E Functional Tests Start: 10/26/24 10:44 Freq: Status: Active Protocol: Document 10/29/24 10:45 LFG (Rec: 10/29/24 12:16 LFG [id number]) Functional Tests Dynamic Gait Index (DGI) Score 17/24 DGI Impairment 20 to <40% Impaired (Score 15-19) Rating PT-OP-M Strength Start: 10/26/24 10:44 Freq: Status: Active Protocol: Document 10/26/24 09:45 LFG (Rec: 10/26/24 16:29 LFG [id number]) Hip Strength Hip Manual Muscle Testing Right Flexion (L2) 4+ Good+ Extension (S1) 3+ Fair+ Abduction 3+ Fair+ Adduction 4- Good- External Rotation 4 Good Internal Rotation 4 Good Left Flexion (L2) 4+ Good+ Extension (S1) 3+ Fair+ Abduction 3+ Fair+ Adduction 4- Good- External Rotation 4 Good Internal Rotation 4 Good Knee Strength Knee Manual Muscle Testing Right Flexion (S2) 4- Good- Extension (L3) 4 Good Left Flexion (S2) 4- Good- Extension (L3) 4 Good Ankle/Foot Strength Ankle and Foot Manual Muscle Testing Right Dorsiflexion (L4) 4- Good- Plantarflexion (S1) 4 Good Left Dorsiflexion (L4) 4- Good- Plantarflexion (S1) 4 Good PT-OP-Q Treatments Start: 10/26/24 10:44 Freq: Status: Active Protocol: Document 10/29/24 10:45 LFG (Rec: 10/29/24 12:11 LFG [id number]) Gym Equipment Shuttle Recovery unilateral squat Details VC to slow down, Resistance 37 (1 nvy, 1 gry) Shuttle Recovery Unstable Platform bilateral squat Details VC to slow down, turn R heel out, keep knees out Resistance 75 (3 nvy), (might decrease resistance next time) Shuttle Recovery Stable Platform Therapeutic Exercises Standing Exercises SL taps Standing Exercise SL foot taps -fwd (side attempted - too tired) Name Side bilateral Equipment Used Parallel bars, 4 in box Comments VC to not use UE for balance Hurdles Standing Exercise Hurdles - fwd/sideways Name Equipment Used Parallel bars Comments VC to for bigger steps, occasional UE use Monster/Side walks Standing Exercise Fwd/bwd, sideways Name Resistance L1 Equipment Used Parallel bars Reps/Minutes 2x down/back Comments VC for wider/bigger steps, lift up feet -not drag, feet straight Neuro Re-Education Treatment Other Activities Testing Details DGI () PT-OP-T Assessment and Plan Start: 10/26/24 10:44 Freq: Status: Active Protocol: Document 10/29/24 10:45 LFG (Rec: 10/29/24 12:11 LFG [id number]) Physical Therapy Assessment Rehab Potential Rehabilitation Good Potential Evaluation Complexity Number of Personal 3 or More Factors/ Comorbidities Number of Body 4 or More Systems Impaired Clinical Unstable Presentation at Evaluation Impairments Impairments Activity Tolerance,Balance,Coordination,Functional Activities,Functional Mobility,Gait,Strength,Tone, Transfers Goals Three Impairment Pt exhibits shuffling, festinating gait pattern upon initiation of gait Detention Goal (LTG) Pt to decrease tendency of shuffling gait to <30% of the time when initiating movement without verbal cues LTG Duration 12/26/24 Two Impairment Coon Score (42/56) and TUG (14.7) indicative of increased falls risk Surgical Sales Representative Goal (LTG) Pt to improve Coon Balance score by at least four points to 46/56 in order to exhibit a reduced falls risk LTG Duration 12/26/24 One Impairment Pt is not compliant with current home exercise program Short Term Goal (STG PT to be compliant and independent with an appropriate ) HEP STG Duration 11/25/24 Assessment Summary Assessment Pt tolerated todays session well today, balance and strength were challenged with moderate VC, SBA and rest breaks. Pt mentioned throughout the session that the leg press seemed to have fatigued his quads bilaterally . Last SL balance exercise was cut short due to fatigue and feeling tired from the rest of session. Continue to focus on functional strength, balance, activity tolerance, and gait training. Physical Therapy Plan Frequency and Duration Frequency of 2x/Week Treatment Plan of Care Start 10/26/24 Date Plan of Care End 12/26/24 Date Therapeutic Interventions Therapeutic Balance Training,Gait Training,Home Exercise Program, Interventions Manual Therapy,Neuromuscular Re-education,Orthotic/ Prosthetic Management,Patient/Caregiver Education,Self- Care/Home Management,Soft Tissue Mobilization, Therapeutic Activities,Therapeutic Exercises,Vestibular Rehabilitation Next Visit Focus/Plan Next Note Type Treatment Note Next Visit Plan Balance challenges, strengthening
--- NOTE | 2024-11-06 14:32 | PT.OTN ---
Current Diagnoses (Idiopathic) normal pressure hydrocephalus (11/06/24) Physical Therapy Treatment Note PT-OP-A Visit Information Start: 10/26/24 10:44 Freq: Status: Active Protocol: Document 11/06/24 13:48 DCW (Rec: 11/06/24 14:32 DCW [id number]) Out-Patient Physical Therapy Visit Information Visit Information Visit Type Treatment Note Visit Start Time 13:48 Visit Stop Time 14:30 Visit Number 3 Number of RECREATION LEADER Visits 0 Evaluation Information Evaluation Date 10/26/24 PT-OP-B Current Condition Start: 10/26/24 10:44 Freq: Status: Active Protocol: Document 10/26/24 09:45 DCW (Rec: 10/26/24 11:01 DCW [id number]) Current Condition History of Current Condition Onset Date 09/24/24 Current Complaints Slow, shuffling gait, poor balance History of Current PT is an 83 year old male presenting to [facility] therapy Condition one month s/p shunt placement for Normal Pressure Hydrocephalus. Pt was initially diagnosed with Parkinson's, due to severe shuffling gait and poor balance, however failed to respond to any pharmacological treatment. Beginning more than one year ago, diagnosis changed to NPH, and pt was sent to out- patient PT at that time. 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 Pt finally was able to undergo shunt placement for treatment of his hydrocephalus. Pt reports he felt great for one week, then his symptoms slowly began to return. Pt now feeling like he has returned to his same level of function prior to shunt placement, however his and friends all claim he is moving much better. Underwent adjustment of shunt valve 10/22/24, hoping increasing flow will help decrease symptoms again. Pt's goal is to get back to his prior level of function and walking without an assistive device. Admits he still needs cuing from his to increase step length and stay closer to his 4WW. PT-OP-C Subjective Start: 10/26/24 10:44 Freq: Status: Active Protocol: Document 11/06/24 13:48 DCW (Rec: 11/06/24 14:32 DCW [id number]) OP-PT Subjective Patient Comments Patient Comments Peggy [pt's ] took my walker from me. Pt reports that his is having hip pain and is currently using his 4WW, so pt comes in AD-free today. Has a follow-up with his surgeon in [place] on Tuesday. PT-OP-D Balance Start: 10/26/24 10:44 Freq: Status: Active Protocol: Document 10/26/24 09:45 LFG (Rec: 10/26/24 16:29 LFG [id number]) Coon Balance Assessment Evaluation Sitting to Standing Independent w/out Hands Ability Unsupported Stance Supervision- 2 minutes Sitting Unsupported, Safely- 2 minutes Feet on Floor Standing to Sitting Safely, Minimal Hand Use Ability Transfer Ability Safely, Minimal Hand Use Unsupported Stance- Supervision, 10 seconds Eyes Closed Unsupported Stance- Supervision to maintain Eyes Open Reaching Forward Safely, 5 inches Standing Pick- Up Object From Supervision Floor Look Behind Shoulder Supervision w/Turning - Standing Turning 360 Degrees Turns slowly, but safely Unsupported Stance, (I)- 8 Steps in > 20 secs Alternating Feet on Stair Unsupported Tandem Holds Tandem- 30 seconds Stance Unilateral Leg Lifts Leg/Holds > 3 secs Stance Total Score Coon Total Score ( 42 out of 56 points) Coon Impairment 20 to 39% Impaired (Score 34-44) Rating PT-OP-E Functional Tests Start: 10/26/24 10:44 Freq: Status: Active Protocol: Document 10/29/24 10:45 LFG (Rec: 10/29/24 12:16 LFG [id number]) Functional Tests Dynamic Gait Index (DGI) Score 17/24 DGI Impairment 20 to <40% Impaired (Score 15-19) Rating PT-OP-M Strength Start: 10/26/24 10:44 Freq: Status: Active Protocol: Document 10/26/24 09:45 LFG (Rec: 10/26/24 16:29 LFG [id number]) Hip Strength Hip Manual Muscle Testing Right Flexion (L2) 4+ Good+ Extension (S1) 3+ Fair+ Abduction 3+ Fair+ Adduction 4- Good- External Rotation 4 Good Internal Rotation 4 Good Left Flexion (L2) 4+ Good+ Extension (S1) 3+ Fair+ Abduction 3+ Fair+ Adduction 4- Good- External Rotation 4 Good Internal Rotation 4 Good Knee Strength Knee Manual Muscle Testing Right Flexion (S2) 4- Good- Extension (L3) 4 Good Left Flexion (S2) 4- Good- Extension (L3) 4 Good Ankle/Foot Strength Ankle and Foot Manual Muscle Testing Right Dorsiflexion (L4) 4- Good- Plantarflexion (S1) 4 Good Left Dorsiflexion (L4) 4- Good- Plantarflexion (S1) 4 Good PT-OP-Q Treatments Start: 10/26/24 10:44 Freq: Status: Active Protocol: Document 11/06/24 13:48 DCW (Rec: 11/06/24 14:32 DCW [id number]) Cardio Equipment Recumbent Stepper (Sci-Fit) Duration (Minutes) 6 Resistance 3 Seat Position 16 Gym Equipment Shuttle Recovery Bilateral Heel Raises Resistance 50# unilateral squat Details VC to slow down, Resistance 37 (One [place]) Shuttle Recovery Unstable Platform bilateral squat Details VC to slow down Resistance 75 (3 nvy) Shuttle Recovery Stable Platform Therapeutic Exercises Standing Exercises Hurdles Standing Exercise Hurdles - fwd/sideways Name Equipment Used Parallel bars Gait Training Gait Activity Metronome Description Ambulation /c metronome Device Used None Comments 80-105, best mamadou at 100 bpm Neuro Re-Education Treatment Balance Activities Tandem Details Tandem Stance Equipment // bars Cone Taps Details Toe-taps on cones Surface AirEx PT-OP-T Assessment and Plan Start: 10/26/24 10:44 Freq: Status: Active Protocol: Document 11/06/24 13:48 DCW (Rec: 11/06/24 14:32 DCW [id number]) Physical Therapy Assessment Impairments Impairments Activity Tolerance,Balance,Coordination,Functional Activities,Functional Mobility,Gait,Strength,Tone, Transfers Goals Three Impairment Pt exhibits shuffling, festinating gait pattern upon initiation of gait Director Long Term Care Goal (LTG) Pt to decrease tendency of shuffling gait to <30% of the time when initiating movement without verbal cues LTG Duration 12/26/24 Two Impairment Coon Score (42/56) and TUG (14.7) indicative of increased falls risk Director Long Term Care Goal (LTG) Pt to improve Coon Balance score by at least four points to 46/56 in order to exhibit a reduced falls risk LTG Duration 12/26/24 One Impairment Pt is not compliant with current home exercise program Short Term Goal (STG PT to be compliant and independent with an appropriate ) HEP STG Duration 11/25/24 Assessment Summary Assessment Pt continues to need verbal cues in order to increased stride length and arm swing. Pt tolerating treatment well, good challenges with balance today. Continue to focus on balance, gait, and functional mobility. Physical Therapy Plan Frequency and Duration Frequency of 2x/Week Treatment Plan of Care Start 10/26/24 Date Plan of Care End 12/26/24 Date Therapeutic Interventions Therapeutic Balance Training,Gait Training,Home Exercise Program, Interventions Manual Therapy,Neuromuscular Re-education,Orthotic/ Prosthetic Management,Patient/Caregiver Education,Self- Care/Home Management,Soft Tissue Mobilization, Therapeutic Activities,Therapeutic Exercises,Vestibular Rehabilitation Next Visit Focus/Plan Next Note Type Treatment Note Next Visit Plan Balance challenges, strengthening
--- NOTE | 2024-11-13 14:34 | PT.OTN ---
Current Diagnoses (Idiopathic) normal pressure hydrocephalus (11/13/24) Physical Therapy Treatment Note PT-OP-A Visit Information Start: 10/26/24 10:44 Freq: Status: Active Protocol: Document 11/13/24 13:46 DCW (Rec: 11/13/24 14:34 DCW [id number]) Out-Patient Physical Therapy Visit Information Visit Information Visit Type Treatment Note Visit Start Time 13:46 Visit Stop Time 14:30 Visit Number 4 Number of CONSTRUCTION ENGINEER Visits 0 Evaluation Information Evaluation Date 10/26/24 PT-OP-B Current Condition Start: 10/26/24 10:44 Freq: Status: Active Protocol: Document 10/26/24 09:45 DCW (Rec: 10/26/24 11:01 DCW [id number]) Current Condition History of Current Condition Onset Date 09/24/24 Current Complaints Slow, shuffling gait, poor balance History of Current PT is an 83 year old male presenting to [facility] therapy Condition one month s/p shunt placement for Normal Pressure Hydrocephalus. Pt was initially diagnosed with Parkinson's, due to severe shuffling gait and poor balance, however failed to respond to any pharmacological treatment. Beginning more than one year ago, diagnosis changed to NPH, and pt was sent to out- patient PT at that time. 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 Pt finally was able to undergo shunt placement for treatment of his hydrocephalus. Pt reports he felt great for one week, then his symptoms slowly began to return. Pt now feeling like he has returned to his same level of function prior to shunt placement, however his and friends all claim he is moving much better. Underwent adjustment of shunt valve 10/22/24, hoping increasing flow will help decrease symptoms again. Pt's goal is to get back to his prior level of function and walking without an assistive device. Admits he still needs cuing from his to increase step length and stay closer to his 4WW. PT-OP-C Subjective Start: 10/26/24 10:44 Freq: Status: Active Protocol: Document 11/13/24 13:46 DCW (Rec: 11/13/24 14:34 DCW [id number]) OP-PT Subjective Patient Comments Patient Comments Not very good, pretty wobbly. Reports he saw the surgeon Tuesday, they don't know if it's draining too fast or too slow, so he now has a CT scheduled for tomorrow. PT-OP-D Balance Start: 10/26/24 10:44 Freq: Status: Active Protocol: Document 10/26/24 09:45 LFG (Rec: 10/26/24 16:29 LFG [id number]) Coon Balance Assessment Evaluation Sitting to Standing Independent w/out Hands Ability Unsupported Stance Supervision- 2 minutes Sitting Unsupported, Safely- 2 minutes Feet on Floor Standing to Sitting Safely, Minimal Hand Use Ability Transfer Ability Safely, Minimal Hand Use Unsupported Stance- Supervision, 10 seconds Eyes Closed Unsupported Stance- Supervision to maintain Eyes Open Reaching Forward Safely, 5 inches Standing Pick- Up Object From Supervision Floor Look Behind Shoulder Supervision w/Turning - Standing Turning 360 Degrees Turns slowly, but safely Unsupported Stance, (I)- 8 Steps in > 20 secs Alternating Feet on Stair Unsupported Tandem Holds Tandem- 30 seconds Stance Unilateral Leg Lifts Leg/Holds > 3 secs Stance Total Score Coon Total Score ( 42 out of 56 points) Coon Impairment 20 to 39% Impaired (Score 34-44) Rating PT-OP-E Functional Tests Start: 10/26/24 10:44 Freq: Status: Active Protocol: Document 10/29/24 10:45 LFG (Rec: 10/29/24 12:16 LFG [id number]) Functional Tests Dynamic Gait Index (DGI) Score 17/24 DGI Impairment 20 to <40% Impaired (Score 15-19) Rating PT-OP-M Strength Start: 10/26/24 10:44 Freq: Status: Active Protocol: Document 10/26/24 09:45 LFG (Rec: 10/26/24 16:29 LFG [id number]) Hip Strength Hip Manual Muscle Testing Right Flexion (L2) 4+ Good+ Extension (S1) 3+ Fair+ Abduction 3+ Fair+ Adduction 4- Good- External Rotation 4 Good Internal Rotation 4 Good Left Flexion (L2) 4+ Good+ Extension (S1) 3+ Fair+ Abduction 3+ Fair+ Adduction 4- Good- External Rotation 4 Good Internal Rotation 4 Good Knee Strength Knee Manual Muscle Testing Right Flexion (S2) 4- Good- Extension (L3) 4 Good Left Flexion (S2) 4- Good- Extension (L3) 4 Good Ankle/Foot Strength Ankle and Foot Manual Muscle Testing Right Dorsiflexion (L4) 4- Good- Plantarflexion (S1) 4 Good Left Dorsiflexion (L4) 4- Good- Plantarflexion (S1) 4 Good PT-OP-Q Treatments Start: 10/26/24 10:44 Freq: Status: Active Protocol: Document 11/13/24 13:46 DCW (Rec: 11/13/24 14:34 DCW [id number]) Cardio Equipment Recumbent Stepper (Sci-Fit) Duration (Minutes) 6 Resistance 3 Seat Position 16 Gym Equipment Shuttle Recovery Bilateral Heel Raises Resistance 50# (two navy) unilateral squat Details VC to slow down, Resistance 37 (one navy) Shuttle Recovery Stable Platform bilateral squat Details VC to slow down Resistance 75# (three navy) Shuttle Recovery Stable Platform Gait Training Gait Activity Metronome Description Ambulation /c metronome Device Used None, 4WW Comments metronome at 100 bpm Neuro Re-Education Treatment Balance Activities Tandem Details Tandem Stance Equipment // bars Cone Taps Details Toe-taps on cones Surface AirEx PT-OP-T Assessment and Plan Start: 10/26/24 10:44 Freq: Status: Active Protocol: Document 11/13/24 13:46 DCW (Rec: 11/13/24 14:34 DCW [id number]) Physical Therapy Assessment Impairments Impairments Activity Tolerance,Balance,Coordination,Functional Activities,Functional Mobility,Gait,Strength,Tone, Transfers Goals Three Impairment Pt exhibits shuffling, festinating gait pattern upon initiation of gait Package Pick Up Goal (LTG) Pt to decrease tendency of shuffling gait to <30% of the time when initiating movement without verbal cues LTG Duration 12/26/24 Two Impairment Coon Score (42/56) and TUG (14.7) indicative of increased falls risk Shelter Goal (LTG) Pt to improve Coon Balance score by at least four points to 46/56 in order to exhibit a reduced falls risk LTG Duration 12/26/24 One Impairment Pt is not compliant with current home exercise program Short Term Goal (STG PT to be compliant and independent with an appropriate ) HEP STG Duration 11/25/24 Assessment Summary Assessment Pt appears to be doing very well with ambulating with metronome. Discussed possibility of pt getting one to attach to his walker for home use. Continue to focus on gait, balance, activity tolerance, and LE strength. Physical Therapy Plan Frequency and Duration Frequency of 2x/Week Treatment Plan of Care Start 10/26/24 Date Plan of Care End 12/26/24 Date Therapeutic Interventions Therapeutic Balance Training,Gait Training,Home Exercise Program, Interventions Manual Therapy,Neuromuscular Re-education,Orthotic/ Prosthetic Management,Patient/Caregiver Education,Self- Care/Home Management,Soft Tissue Mobilization, Therapeutic Activities,Therapeutic Exercises,Vestibular Rehabilitation Next Visit Focus/Plan Next Note Type Treatment Note Next Visit Plan Balance challenges, strengthening
--- NOTE | 2024-11-15 12:12 | PT.OTN ---
Current Diagnoses (Idiopathic) normal pressure hydrocephalus (11/15/24) Physical Therapy Treatment Note PT-OP-A Visit Information Start: 10/26/24 10:44 Freq: Status: Active Protocol: Document 11/15/24 11:32 DCW (Rec: 11/15/24 12:12 DCW [id number]) Out-Patient Physical Therapy Visit Information Visit Information Visit Type Treatment Note Visit Start Time 11:32 Visit Stop Time 12:15 Visit Number 5 Number of LOCK STITCH CHANNELER Visits 0 Evaluation Information Evaluation Date 10/26/24 PT-OP-B Current Condition Start: 10/26/24 10:44 Freq: Status: Active Protocol: Document 10/26/24 09:45 DCW (Rec: 10/26/24 11:01 DCW [id number]) Current Condition History of Current Condition Onset Date 09/24/24 Current Complaints Slow, shuffling gait, poor balance History of Current PT is an 83 year old male presenting to [facility] therapy Condition one month s/p shunt placement for Normal Pressure Hydrocephalus. Pt was initially diagnosed with Parkinson's, due to severe shuffling gait and poor balance, however failed to respond to any pharmacological treatment. Beginning more than one year ago, diagnosis changed to NPH, and pt was sent to out- patient PT at that time. 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 Pt finally was able to undergo shunt placement for treatment of his hydrocephalus. Pt reports he felt great for one week, then his symptoms slowly began to return. Pt now feeling like he has returned to his same level of function prior to shunt placement, however his and friends all claim he is moving much better. Underwent adjustment of shunt valve 10/22/24, hoping increasing flow will help decrease symptoms again. Pt's goal is to get back to his prior level of function and walking without an assistive device. Admits he still needs cuing from his to increase step length and stay closer to his 4WW. PT-OP-C Subjective Start: 10/26/24 10:44 Freq: Status: Active Protocol: Document 11/15/24 11:32 DCW (Rec: 11/15/24 12:12 DCW [id number]) OP-PT Subjective Patient Comments Patient Comments Pt able to come in with improved gait today, makes note of it, but unable to make it last long before return to shuffling gait. PT-OP-D Balance Start: 10/26/24 10:44 Freq: Status: Active Protocol: Document 10/26/24 09:45 LFG (Rec: 10/26/24 16:29 LFG [id number]) Coon Balance Assessment Evaluation Sitting to Standing Independent w/out Hands Ability Unsupported Stance Supervision- 2 minutes Sitting Unsupported, Safely- 2 minutes Feet on Floor Standing to Sitting Safely, Minimal Hand Use Ability Transfer Ability Safely, Minimal Hand Use Unsupported Stance- Supervision, 10 seconds Eyes Closed Unsupported Stance- Supervision to maintain Eyes Open Reaching Forward Safely, 5 inches Standing Pick- Up Object From Supervision Floor Look Behind Shoulder Supervision w/Turning - Standing Turning 360 Degrees Turns slowly, but safely Unsupported Stance, (I)- 8 Steps in > 20 secs Alternating Feet on Stair Unsupported Tandem Holds Tandem- 30 seconds Stance Unilateral Leg Lifts Leg/Holds > 3 secs Stance Total Score Coon Total Score ( 42 out of 56 points) Coon Impairment 20 to 39% Impaired (Score 34-44) Rating PT-OP-E Functional Tests Start: 10/26/24 10:44 Freq: Status: Active Protocol: Document 10/29/24 10:45 LFG (Rec: 10/29/24 12:16 LFG [id number]) Functional Tests Dynamic Gait Index (DGI) Score 17/24 DGI Impairment 20 to <40% Impaired (Score 15-19) Rating PT-OP-M Strength Start: 10/26/24 10:44 Freq: Status: Active Protocol: Document 10/26/24 09:45 LFG (Rec: 10/26/24 16:29 LFG [id number]) Hip Strength Hip Manual Muscle Testing Right Flexion (L2) 4+ Good+ Extension (S1) 3+ Fair+ Abduction 3+ Fair+ Adduction 4- Good- External Rotation 4 Good Internal Rotation 4 Good Left Flexion (L2) 4+ Good+ Extension (S1) 3+ Fair+ Abduction 3+ Fair+ Adduction 4- Good- External Rotation 4 Good Internal Rotation 4 Good Knee Strength Knee Manual Muscle Testing Right Flexion (S2) 4- Good- Extension (L3) 4 Good Left Flexion (S2) 4- Good- Extension (L3) 4 Good Ankle/Foot Strength Ankle and Foot Manual Muscle Testing Right Dorsiflexion (L4) 4- Good- Plantarflexion (S1) 4 Good Left Dorsiflexion (L4) 4- Good- Plantarflexion (S1) 4 Good PT-OP-Q Treatments Start: 10/26/24 10:44 Freq: Status: Active Protocol: Document 11/15/24 11:32 DCW (Rec: 11/15/24 12:12 DCW [id number]) Cardio Equipment Recumbent Stepper (Sci-Fit) Duration (Minutes) 7 Resistance 4 Seat Position 14 Gym Equipment Shuttle Recovery Bilateral Heel Raises Resistance 50# (two navy) unilateral squat Details VC to slow down, Resistance 37 (one navy) Shuttle Recovery Stable Platform bilateral squat Details VC to slow down Resistance 75# (three navy) Shuttle Recovery Stable Platform Gait Training Gait Activity Metronome Description Ambulation /c metronome Device Used None Distance/Duration 340' Comments metronome at 100 bpm, quality of gait decayed as pt walked more. Neuro Re-Education Treatment Balance Activities SLS Details SLS Equipment @ rail Tandem Details Tandem Stance Equipment // bars PT-OP-T Assessment and Plan Start: 10/26/24 10:44 Freq: Status: Active Protocol: Document 11/15/24 11:32 DCW (Rec: 11/15/24 12:12 DCW [id number]) Physical Therapy Assessment Impairments Impairments Activity Tolerance,Balance,Coordination,Functional Activities,Functional Mobility,Gait,Strength,Tone, Transfers Goals Three Impairment Pt exhibits shuffling, festinating gait pattern upon initiation of gait Half-Way Goal (LTG) Pt to decrease tendency of shuffling gait to <30% of the time when initiating movement without verbal cues LTG Duration 12/26/24 Two Impairment Coon Score (42/56) and TUG (14.7) indicative of increased falls risk Washcoat Wiper Goal (LTG) Pt to improve Coon Balance score by at least four points to 46/56 in order to exhibit a reduced falls risk LTG Duration 12/26/24 One Impairment Pt is not compliant with current home exercise program Short Term Goal (STG PT to be compliant and independent with an appropriate ) HEP STG Duration 11/25/24 Assessment Summary Assessment Following ambulation, pt lunged for chair to sit, missed target, and began to slide to the floor. Therapist was able to slow descent, caught pt, and pt ended in a half-kneeling position, no hard hit on floor , pt able to get himself back into standing. Pt noted knee was fine, no concerns. Otherwise, pt did well today, although clearly fatigued with activity. Physical Therapy Plan Frequency and Duration Frequency of 2x/Week Treatment Plan of Care Start 10/26/24 Date Plan of Care End 12/26/24 Date Therapeutic Interventions Therapeutic Balance Training,Gait Training,Home Exercise Program, Interventions Manual Therapy,Neuromuscular Re-education,Orthotic/ Prosthetic Management,Patient/Caregiver Education,Self- Care/Home Management,Soft Tissue Mobilization, Therapeutic Activities,Therapeutic Exercises,Vestibular Rehabilitation Next Visit Focus/Plan Next Note Type Treatment Note Next Visit Plan Balance challenges, strengthening
--- NOTE | 2024-11-21 14:39 | PT.OTN ---
Current Diagnoses (Idiopathic) normal pressure hydrocephalus (11/21/24) Physical Therapy Treatment Note PT-OP-A Visit Information Start: 10/26/24 10:44 Freq: Status: Active Protocol: Document 11/21/24 13:45 DCW (Rec: 11/21/24 14:39 DCW [id number]) Out-Patient Physical Therapy Visit Information Visit Information Visit Type Treatment Note Visit Start Time 13:45 Visit Stop Time 14:30 Visit Number 6 Number of PARTS IDENTIFIER Visits 0 Evaluation Information Evaluation Date 10/26/24 PT-OP-B Current Condition Start: 10/26/24 10:44 Freq: Status: Active Protocol: Document 10/26/24 09:45 DCW (Rec: 10/26/24 11:01 DCW [id number]) Current Condition History of Current Condition Onset Date 09/24/24 Current Complaints Slow, shuffling gait, poor balance History of Current PT is an 83 year old male presenting to [facility] therapy Condition one month s/p shunt placement for Normal Pressure Hydrocephalus. Pt was initially diagnosed with Parkinson's, due to severe shuffling gait and poor balance, however failed to respond to any pharmacological treatment. Beginning more than one year ago, diagnosis changed to NPH, and pt was sent to out- patient PT at that time. 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 Pt finally was able to undergo shunt placement for treatment of his hydrocephalus. Pt reports he felt great for one week, then his symptoms slowly began to return. Pt now feeling like he has returned to his same level of function prior to shunt placement, however his and friends all claim he is moving much better. Underwent adjustment of shunt valve 10/22/24, hoping increasing flow will help decrease symptoms again. Pt's goal is to get back to his prior level of function and walking without an assistive device. Admits he still needs cuing from his to increase step length and stay closer to his 4WW. PT-OP-C Subjective Start: 10/26/24 10:44 Freq: Status: Active Protocol: Document 11/21/24 13:45 DCW (Rec: 11/21/24 14:39 DCW [id number]) OP-PT Subjective Patient Comments Patient Comments I'm stumbling around, all tired out. I can't balance anymore. Seeing his neurologist December 19, hoping he can get his symptoms sorted out by then. PT-OP-D Balance Start: 10/26/24 10:44 Freq: Status: Active Protocol: Document 10/26/24 09:45 LFG (Rec: 10/26/24 16:29 LFG [id number]) Coon Balance Assessment Evaluation Sitting to Standing Independent w/out Hands Ability Unsupported Stance Supervision- 2 minutes Sitting Unsupported, Safely- 2 minutes Feet on Floor Standing to Sitting Safely, Minimal Hand Use Ability Transfer Ability Safely, Minimal Hand Use Unsupported Stance- Supervision, 10 seconds Eyes Closed Unsupported Stance- Supervision to maintain Eyes Open Reaching Forward Safely, 5 inches Standing Pick- Up Object From Supervision Floor Look Behind Shoulder Supervision w/Turning - Standing Turning 360 Degrees Turns slowly, but safely Unsupported Stance, (I)- 8 Steps in > 20 secs Alternating Feet on Stair Unsupported Tandem Holds Tandem- 30 seconds Stance Unilateral Leg Lifts Leg/Holds > 3 secs Stance Total Score Coon Total Score ( 42 out of 56 points) Coon Impairment 20 to 39% Impaired (Score 34-44) Rating PT-OP-E Functional Tests Start: 10/26/24 10:44 Freq: Status: Active Protocol: Document 10/29/24 10:45 LFG (Rec: 10/29/24 12:16 LFG [id number]) Functional Tests Dynamic Gait Index (DGI) Score 17/24 DGI Impairment 20 to <40% Impaired (Score 15-19) Rating PT-OP-M Strength Start: 10/26/24 10:44 Freq: Status: Active Protocol: Document 10/26/24 09:45 LFG (Rec: 10/26/24 16:29 LFG [id number]) Hip Strength Hip Manual Muscle Testing Right Flexion (L2) 4+ Good+ Extension (S1) 3+ Fair+ Abduction 3+ Fair+ Adduction 4- Good- External Rotation 4 Good Internal Rotation 4 Good Left Flexion (L2) 4+ Good+ Extension (S1) 3+ Fair+ Abduction 3+ Fair+ Adduction 4- Good- External Rotation 4 Good Internal Rotation 4 Good Knee Strength Knee Manual Muscle Testing Right Flexion (S2) 4- Good- Extension (L3) 4 Good Left Flexion (S2) 4- Good- Extension (L3) 4 Good Ankle/Foot Strength Ankle and Foot Manual Muscle Testing Right Dorsiflexion (L4) 4- Good- Plantarflexion (S1) 4 Good Left Dorsiflexion (L4) 4- Good- Plantarflexion (S1) 4 Good PT-OP-Q Treatments Start: 10/26/24 10:44 Freq: Status: Active Protocol: Document 11/21/24 13:45 DCW (Rec: 11/21/24 14:39 DCW [id number]) Cardio Equipment Recumbent Stepper (Sci-Fit) Duration (Minutes) 7 Resistance 3 Seat Position 14 Gym Equipment Shuttle Recovery Bilateral Heel Raises Resistance 50# (two navy) unilateral squat Details VC to slow down, Resistance 37 (one navy) Shuttle Recovery Stable Platform bilateral squat Details VC to slow down Resistance 75# (three navy) Shuttle Recovery Stable Platform Therapeutic Exercises Sitting Exercises Sit<->stand Sitting Exercise Sit<->stand Name Hip Abduction Sitting Exercise Hip Abduction Name Side bilateral Resistance Lv 2 loop Heel Raises Sitting Exercise Seated heel raise Name Side bilateral Marching Sitting Exercise Marching Name Side bilateral Resistance Lv 2 loop Toe taps Sitting Exercise Toe-taps on floor marker Name Gait Training Gait Activity Metronome Description Ambulation /c metronome Device Used None Distance/Duration 360' Comments metronome at 100 bpm, quality of gait decayed as pt fatigued. PT-OP-T Assessment and Plan Start: 10/26/24 10:44 Freq: Status: Active Protocol: Document 11/21/24 13:45 DCW (Rec: 11/21/24 14:39 DCW [id number]) Physical Therapy Assessment Impairments Impairments Activity Tolerance,Balance,Coordination,Functional Activities,Functional Mobility,Gait,Strength,Tone, Transfers Goals Three Impairment Pt exhibits shuffling, festinating gait pattern upon initiation of gait Last Repairer Goal (LTG) Pt to decrease tendency of shuffling gait to <30% of the time when initiating movement without verbal cues LTG Duration 12/26/24 Two Impairment Coon Score (42/56) and TUG (14.7) indicative of increased falls risk Mcfp Goal (LTG) Pt to improve Coon Balance score by at least four points to 46/56 in order to exhibit a reduced falls risk LTG Duration 12/26/24 One Impairment Pt is not compliant with current home exercise program Short Term Goal (STG PT to be compliant and independent with an appropriate ) HEP STG Duration 11/25/24 Assessment Summary Assessment Pt tolerated treatment well. Noted he has a 1.5 week break from PT due to scheduling conflicts, requested more to do at home. Provided with seated exercises. Still experiencing increased difficulty with gait, struggled more with increasing step length today. Physical Therapy Plan Frequency and Duration Frequency of 2x/Week Treatment Plan of Care Start 10/26/24 Date Plan of Care End 12/26/24 Date Therapeutic Interventions Therapeutic Balance Training,Gait Training,Home Exercise Program, Interventions Manual Therapy,Neuromuscular Re-education,Orthotic/ Prosthetic Management,Patient/Caregiver Education,Self- Care/Home Management,Soft Tissue Mobilization, Therapeutic Activities,Therapeutic Exercises,Vestibular Rehabilitation Next Visit Focus/Plan Next Note Type Treatment Note Next Visit Plan Balance challenges, strengthening
--- NOTE | 2024-12-17 14:31 | PT.OTN ---
Current Diagnoses (Idiopathic) normal pressure hydrocephalus (12/17/24) Physical Therapy Treatment Note PT-OP-A Visit Information Start: 10/26/24 10:44 Freq: Status: Active Protocol: Document 12/17/24 13:51 SP (Rec: 12/17/24 14:36 SP [id number]) Out-Patient Physical Therapy Visit Information Visit Information Visit Type Treatment Note Visit Start Time 13:51 Visit Stop Time 14:31 Visit Number 7 ( PN & update POC 12/19 appt) Number of DIESEL POWERPLANT MECHANIC HELPER Visits 1 Evaluation Information Evaluation Date 10/26/24 PT-OP-B Current Condition Start: 10/26/24 10:44 Freq: Status: Active Protocol: Document 10/26/24 09:45 DCW (Rec: 10/26/24 11:01 DCW [id number]) Current Condition History of Current Condition Onset Date 09/24/24 Current Complaints Slow, shuffling gait, poor balance History of Current PT is an 83 year old male presenting to [facility] therapy Condition one month s/p shunt placement for Normal Pressure Hydrocephalus. Pt was initially diagnosed with Parkinson's, due to severe shuffling gait and poor balance, however failed to respond to any pharmacological treatment. Beginning more than one year ago, diagnosis changed to NPH, and pt was sent to out- patient PT at that time. 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 Pt finally was able to undergo shunt placement for treatment of his hydrocephalus. Pt reports he felt great for one week, then his symptoms slowly began to return. Pt now feeling like he has returned to his same level of function prior to shunt placement, however his and friends all claim he is moving much better. Underwent adjustment of shunt valve 10/22/24, hoping increasing flow will help decrease symptoms again. Pt's goal is to get back to his prior level of function and walking without an assistive device. Admits he still needs cuing from his to increase step length and stay closer to his 4WW. PT-OP-C Subjective Start: 10/26/24 10:44 Freq: Status: Active Protocol: Document 12/17/24 13:51 SP (Rec: 12/17/24 14:36 SP [id number]) OP-PT Subjective Patient Comments Patient Comments Pt reports balance hasn't been as good lately. He stated has 2 drains in his skull s/p Jul 5 and has a follow up on Dec 20 to see if needs any adjustments can make to help decreased LOB off to side lately. He stated felt great after procedure but then balance difficulties again returned. PT-OP-D Balance Start: 10/26/24 10:44 Freq: Status: Active Protocol: Document 10/26/24 09:45 LFG (Rec: 10/26/24 16:29 LFG [id number]) Coon Balance Assessment Evaluation Sitting to Standing Independent w/out Hands Ability Unsupported Stance Supervision- 2 minutes Sitting Unsupported, Safely- 2 minutes Feet on Floor Standing to Sitting Safely, Minimal Hand Use Ability Transfer Ability Safely, Minimal Hand Use Unsupported Stance- Supervision, 10 seconds Eyes Closed Unsupported Stance- Supervision to maintain Eyes Open Reaching Forward Safely, 5 inches Standing Pick- Up Object From Supervision Floor Look Behind Shoulder Supervision w/Turning - Standing Turning 360 Degrees Turns slowly, but safely Unsupported Stance, (I)- 8 Steps in > 20 secs Alternating Feet on Stair Unsupported Tandem Holds Tandem- 30 seconds Stance Unilateral Leg Lifts Leg/Holds > 3 secs Stance Total Score Coon Total Score ( 42 out of 56 points) Coon Impairment 20 to 39% Impaired (Score 34-44) Rating PT-OP-E Functional Tests Start: 10/26/24 10:44 Freq: Status: Active Protocol: Document 10/29/24 10:45 LFG (Rec: 10/29/24 12:16 LFG [id number]) Functional Tests Dynamic Gait Index (DGI) Score 17/24 DGI Impairment 20 to <40% Impaired (Score 15-19) Rating PT-OP-M Strength Start: 10/26/24 10:44 Freq: Status: Active Protocol: Document 10/26/24 09:45 LFG (Rec: 10/26/24 16:29 LFG [id number]) Hip Strength Hip Manual Muscle Testing Right Flexion (L2) 4+ Good+ Extension (S1) 3+ Fair+ Abduction 3+ Fair+ Adduction 4- Good- External Rotation 4 Good Internal Rotation 4 Good Left Flexion (L2) 4+ Good+ Extension (S1) 3+ Fair+ Abduction 3+ Fair+ Adduction 4- Good- External Rotation 4 Good Internal Rotation 4 Good Knee Strength Knee Manual Muscle Testing Right Flexion (S2) 4- Good- Extension (L3) 4 Good Left Flexion (S2) 4- Good- Extension (L3) 4 Good Ankle/Foot Strength Ankle and Foot Manual Muscle Testing Right Dorsiflexion (L4) 4- Good- Plantarflexion (S1) 4 Good Left Dorsiflexion (L4) 4- Good- Plantarflexion (S1) 4 Good PT-OP-Q Treatments Start: 10/26/24 10:44 Freq: Status: Active Protocol: Document 12/17/24 13:51 SP (Rec: 12/17/24 14:36 SP [id number]) Cardio Equipment Recumbent Elliptical (NuStep) Duration (Minutes) 8 Resistance 5 Seat Position 14 Other BUEs/BLEs 67-70 SPM Gait Training Gait Activity Metronome Description Ambulation /c metronome Device Used None Distance/Duration 360' Treatment Focus increase stride, foot clearance, Comments metronome at 100>90 bpm, Min cues for tall posture, high knees, pick remover toes, longer steps. Neuro Re-Education Treatment Balance Activities hurdles Equipment 6 hurdles, //bars, 5# leg wts Comments cues for tall posture, little more TKE stance LE, bigger step for foot clearance leading and trailing LE, improved decrease 1 to no UE support. PT-OP-T Assessment and Plan Start: 10/26/24 10:44 Freq: Status: Active Protocol: Document 12/17/24 13:51 SP (Rec: 12/17/24 14:36 SP [id number]) Physical Therapy Assessment Goals Three Impairment Pt exhibits shuffling, festinating gait pattern upon initiation of gait Optical Technician Goal (LTG) Pt to decrease tendency of shuffling gait to <30% of the time when initiating movement without verbal cues LTG Duration 12/26/24 Two Impairment Coon Score (42/56) and TUG (14.7) indicative of increased falls risk [facility] Goal (LTG) Pt to improve Coon Balance score by at least four points to 46/56 in order to exhibit a reduced falls risk LTG Duration 12/26/24 One Impairment Pt is not compliant with current home exercise program Short Term Goal (STG PT to be compliant and independent with an appropriate ) HEP STG Duration 11/25/24 Assessment Summary Assessment Pt improved stepping to metronome decreased to 90 bpm and assisted install aleksandra on his phone and education how to find on phone, turn on/off to support progress step length home carryover. Pt was able to decreased UE support during weighted alix stepping with verbal and tactile cues. Physical Therapy Plan Frequency and Duration Frequency of 2x/Week Treatment Plan of Care Start 10/26/24 Date Plan of Care End 12/26/24 Date Therapeutic Interventions Therapeutic Balance Training,Gait Training,Home Exercise Program, Interventions Manual Therapy,Neuromuscular Re-education,Orthotic/ Prosthetic Management,Patient/Caregiver Education,Self- Care/Home Management,Soft Tissue Mobilization, Therapeutic Activities,Therapeutic Exercises,Vestibular Rehabilitation Next Visit Focus/Plan Next Note Type Progress Note Next Visit Plan Recheck POC/PN next appt and if added more appts. POC: Balance challenges, strengthening
--- NOTE | 2024-12-19 11:36 | PT.OTN ---
Current Diagnoses (Idiopathic) normal pressure hydrocephalus (12/19/24) Physical Therapy Treatment Note PT-OP-A Visit Information Start: 10/26/24 10:44 Freq: Status: Active Protocol: Document 12/19/24 10:47 DCW (Rec: 12/19/24 11:36 DCW [id number]) Out-Patient Physical Therapy Visit Information Visit Information Visit Type Progress Note Visit Start Time 10:47 Visit Stop Time 11:30 Visit Number 8 Number of MATERIAL INSPECTOR Visits 0 Evaluation Information Evaluation Date 10/26/24 PT-OP-B Current Condition Start: 10/26/24 10:44 Freq: Status: Active Protocol: Document 10/26/24 09:45 DCW (Rec: 10/26/24 11:01 DCW [id number]) Current Condition History of Current Condition Onset Date 09/24/24 Current Complaints Slow, shuffling gait, poor balance History of Current PT is an 83 year old male presenting to [facility] therapy Condition one month s/p shunt placement for Normal Pressure Hydrocephalus. Pt was initially diagnosed with Parkinson's, due to severe shuffling gait and poor balance, however failed to respond to any pharmacological treatment. Beginning more than one year ago, diagnosis changed to NPH, and pt was sent to out- patient PT at that time. 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 Pt finally was able to undergo shunt placement for treatment of his hydrocephalus. Pt reports he felt great for one week, then his symptoms slowly began to return. Pt now feeling like he has returned to his same level of function prior to shunt placement, however his and friends all claim he is moving much better. Underwent adjustment of shunt valve 10/22/24, hoping increasing flow will help decrease symptoms again. Pt's goal is to get back to his prior level of function and walking without an assistive device. Admits he still needs cuing from his to increase step length and stay closer to his 4WW. PT-OP-C Subjective Start: 10/26/24 10:44 Freq: Status: Active Protocol: Document 12/19/24 10:47 DCW (Rec: 12/19/24 11:36 DCW [id number]) OP-PT Subjective Patient Comments Patient Comments Pt reports he is going down to [place] tomorrow, hoping to get his drain adjusted PT-OP-D Balance Start: 10/26/24 10:44 Freq: Status: Active Protocol: Document 12/19/24 10:47 DCW (Rec: 12/19/24 11:16 DCW [id number]) Coon Balance Assessment Evaluation Sitting to Standing Independent w/out Hands Ability Unsupported Stance Safely- 2 minutes Sitting Unsupported, Safely- 2 minutes Feet on Floor Standing to Sitting Safely, Minimal Hand Use Ability Transfer Ability Safely, Minimal Hand Use Unsupported Stance- Supervision, 10 seconds Eyes Closed Unsupported Stance- Independent, 1 minute Eyes Open Reaching Forward Confidently, 10 inches Standing Pick- Up Object From Independent/Safe Floor Look Behind Shoulder Shifts Weight Unilateral - Standing Turning 360 Degrees Turns , < 4 secs Unsupported Stance, (I)- 8 Steps in > 20 secs Alternating Feet on Stair Unsupported Tandem Holds Tandem- 30 seconds Stance Unilateral Leg Lifts Leg/Unable to Hold Stance Total Score Coon Total Score ( 48 out of 56 points) Coon Impairment 1 to 19% Impaired (Score 45-55) Rating PT-OP-E Functional Tests Start: 10/26/24 10:44 Freq: Status: Active Protocol: Document 12/19/24 10:47 DCW (Rec: 12/19/24 11:16 DCW [id number]) Functional Tests Dynamic Gait Index (DGI) Score 16/24 Timed Up and Go (TUG) Score 11.5 Comments Three-trial average (10.91, 12.02, 11.56) PT-OP-M Strength Start: 10/26/24 10:44 Freq: Status: Active Protocol: Document 10/26/24 09:45 LFG (Rec: 10/26/24 16:29 LFG [id number]) Hip Strength Hip Manual Muscle Testing Right Flexion (L2) 4+ Good+ Extension (S1) 3+ Fair+ Abduction 3+ Fair+ Adduction 4- Good- External Rotation 4 Good Internal Rotation 4 Good Left Flexion (L2) 4+ Good+ Extension (S1) 3+ Fair+ Abduction 3+ Fair+ Adduction 4- Good- External Rotation 4 Good Internal Rotation 4 Good Knee Strength Knee Manual Muscle Testing Right Flexion (S2) 4- Good- Extension (L3) 4 Good Left Flexion (S2) 4- Good- Extension (L3) 4 Good Ankle/Foot Strength Ankle and Foot Manual Muscle Testing Right Dorsiflexion (L4) 4- Good- Plantarflexion (S1) 4 Good Left Dorsiflexion (L4) 4- Good- Plantarflexion (S1) 4 Good PT-OP-Q Treatments Start: 10/26/24 10:44 Freq: Status: Active Protocol: Document 12/19/24 10:47 DCW (Rec: 12/19/24 11:36 DCW [id number]) Gait Training Gait Activity Metronome Description Ambulation /c metronome Device Used None Distance/Duration 360' Treatment Focus increase stride, foot clearance, Comments metronome at 90->100 bpm, Min cues for tall posture, high knees, milk 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 Neuro Re-Education Treatment Other Activities Testing Details DGI (), Coon (48/56), TUG (11.5) PT-OP-T Assessment and Plan Start: 10/26/24 10:44 Freq: Status: Active Protocol: Document 12/19/24 10:47 DCW (Rec: 12/19/24 11:36 DCW [id number]) Physical Therapy Assessment Impairments Impairments Activity Tolerance,Balance,Coordination,Functional Activities,Functional Mobility,Gait,Strength,Tone, Transfers Goals Three Impairment Pt exhibits shuffling, festinating gait pattern upon initiation of gait Refuse Collector Goal (LTG) Pt to decrease tendency of shuffling gait to <30% of the time when initiating movement without verbal cues LTG Duration 02/19/25 Two Impairment DGI score (16/24) indicative of increased falls risk Short Term Goal (STG Pt to improve Cono Balance score by at least four ) points to 46/56 in order to exhibit a reduced falls risk STG Duration Met Snf Goal (LTG) Pt to improve DGI score by at least four points to 20/ 24 in order to exhibit a reduced falls risk LTG Duration 02/19/25 One Impairment Pt is not compliant with current home exercise program Short Term Goal (STG Pt to be compliant and independent with an appropriate ) HEP STG Duration 01/19/25 Assessment Summary Assessment Pt made good progress with both Coon (eval 42/56, current 48/56) and TUG (eval 14.72, current 11.5). DGI, unfortunately, decreased by one point from eval ( currently 16/24). Pt overall appears to be moving better, however continues to require fairly constant verbal cues in order to improve stride length and decrease shuffling of feet. May continue to improve with skilled therapeutic intervention focusing on balance, gait, activity tolerance, and strength. Physical Therapy Plan Frequency and Duration Frequency of 2x/Week Treatment Plan of Care Start 12/19/24 Date Plan of Care End 02/19/25 Date Therapeutic Interventions Therapeutic Balance Training,Gait Training,Home Exercise Program, Interventions Manual Therapy,Neuromuscular Re-education,Orthotic/ Prosthetic Management,Patient/Caregiver Education,Self- Care/Home Management,Soft Tissue Mobilization, Therapeutic Activities,Therapeutic Exercises,Vestibular Rehabilitation Next Visit Focus/Plan Next Note Type Progress Note Next Visit Plan Recheck POC/PN next appt and if added more appts. POC: Balance challenges, strengthening
--- NOTE | 2024-12-19 11:37 | PT.OPPOC ---
Physical, Occupational & Speech Therapy At [facility] Current Diagnoses (Idiopathic) normal pressure hydrocephalus (12/19/24) Visit Care Team Role Provider Type Donnell Mascorro MD Family Provider Physician Primary Care Provider Specialty: Internal Medicine Address: [address] [place] [address], [id number] Email: [email or web address] JOELLEN Camp Attending Provider Non-Staff Referring Provider Specialty: Neurosurgery Address: [address] [place] [address] [facility], [place], [address] Email: Plan Of Care PT-OP-B Current Condition Start: 10/26/24 10:44 Freq: Status: Active Protocol: Document 10/26/24 09:45 DCW (Rec: 10/26/24 11:01 DCW [id number]) Current Condition History of Current Condition Onset Date 09/24/24 Current Complaints Slow, shuffling gait, poor balance History of Current PT is an 83 year old male presenting to [facility] therapy Condition one month s/p shunt placement for Normal Pressure Hydrocephalus. Pt was initially diagnosed with Parkinson's, due to severe shuffling gait and poor balance, however failed to respond to any pharmacological treatment. Beginning more than one year ago, diagnosis changed to NPH, and pt was sent to out- patient PT at that time. 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 Pt finally was able to undergo shunt placement for treatment of his hydrocephalus. Pt reports he felt great for one week, then his symptoms slowly began to return. Pt now feeling like he has returned to his same level of function prior to shunt placement, however his and friends all claim he is moving much better. Underwent adjustment of shunt valve 10/22/24, hoping increasing flow will help decrease symptoms again. Pt's goal is to get back to his prior level of function and walking without an assistive device. Admits he still needs cuing from his to increase step length and stay closer to his 4WW. PT-OP-T Assessment and Plan Start: 10/26/24 10:44 Freq: Status: Active Protocol: Document 12/19/24 10:47 DCW (Rec: 12/19/24 11:36 DCW [id number]) Physical Therapy Assessment Impairments Impairments Activity Tolerance,Balance,Coordination,Functional Activities,Functional Mobility,Gait,Strength,Tone, Transfers Goals Three Impairment Pt exhibits shuffling, festinating gait pattern upon initiation of gait Horticulture Superintendent Goal (LTG) Pt to decrease tendency of shuffling gait to <30% of the time when initiating movement without verbal cues LTG Duration 02/19/25 Two Impairment DGI score (16/24) indicative of increased falls risk Short Term Goal (STG Pt to improve Coon Balance score by at least four ) points to 46/56 in order to exhibit a reduced falls risk STG Duration Met Correction Goal (LTG) Pt to improve DGI score by at least four points to 20/ 24 in order to exhibit a reduced falls risk LTG Duration 02/19/25 One Impairment Pt is not compliant with current home exercise program Short Term Goal (STG Pt to be compliant and independent with an appropriate ) HEP STG Duration 01/19/25 Assessment Summary Assessment Pt made good progress with both Coon (eval 42/56, current 48/56) and TUG (eval 14.72, current 11.5). DGI, unfortunately, decreased by one point from eval ( currently 16/24). Pt overall appears to be moving better, however continues to require fairly constant verbal cues in order to improve stride length and decrease shuffling of feet. May continue to improve with skilled therapeutic intervention focusing on balance, gait, activity tolerance, and strength. Physical Therapy Plan Frequency and Duration Frequency of 2x/Week Treatment Plan of Care Start 12/19/24 Plan of Care End 02/19/25 Date Therapeutic Interventions Therapeutic Balance Training,Gait Training,Home Exercise Program, Interventions Manual Therapy,Neuromuscular Re-education,Orthotic/ Prosthetic Management,Patient/Caregiver Education,Self- Care/Home Management,Soft Tissue Mobilization, Therapeutic Activities,Therapeutic Exercises,Vestibular Rehabilitation Next Visit Focus/Plan Next Note Type Progress Note Next Visit Plan Recheck POC/PN next appt and if added more appts. POC: Balance challenges, strengthening Plan of Care Dates Plan of Care Start Date 12/19/24 Plan of Care End Date 02/19/25 Electronically Signed by: Jarrod Chiu, PT 12/19/24 [id number] If you are in agreement with this Plan of Care, please return a signed and dated copy. I have reviewed this Plan of Care and certify that the skilled therapy services above are required to meet the patient?s needs. Physician Signature Date Printed Name and Credentials Clinical Instructor Signature Printed Name and Credentials
--- NOTE | 2025-01-01 10:44 | PT.OTN ---
Current Diagnoses (Idiopathic) normal pressure hydrocephalus (01/01/25) Physical Therapy Treatment Note PT OP: Balance, Vestibular, Neuro Start: 01/01/25 09:46 Freq: Status: Active Protocol: Document 01/01/25 09:46 AB (Rec: 01/01/25 10:19 AB [id number]) Out-Patient Physical Therapy Visit Information Visit Information Visit Type Treatment Note Visit Note Visit [email or web address]: [email or web address] Visit Start Time 09:49 Visit Stop Time 10:33 Visit Number 9 Number of SALES DIRECTOR Visits 1 Progress Note Due 01/18/25 OP-PT Subjective Patient Comments Patient Comments Patient reports he is just OK. Patient reports neuro said he was a little better. Patient does not lock 4 wheeled prior t stand to sit. Patient reports he was adjusting shades and he tripped landed on hands avoiding smashing face. Patient reports he got up on own, did not go to MD, reports this was 3-4 days ago. PT, Kian Chiu made aware and Pt cleared for this PT session. 7 sec R 2 sec L LE single leg stance without UE use start of session ( inc knee flexion and ipsilateral trunk sidebend bilaterally.) Gym Equipment Shuttle Recovery bilateral squat Details VC to slow down Resistance 87# (three navy) Shuttle Recovery Stable Platform Reps/Time 15 X 2 Shuttle Balance Red Details NBOS, Romberg Staggered Reps/Duration CGA 4 min Comments visual scanning and head turns Therapeutic Exercises Supine Exercises hip and knee ext with band Resistance level 4 band Reps/Minutes X 12 each LE Comments VC declines for HEP Sitting Exercises seated hip abd with band Resistance level 4 band Reps/Minutes one min X 1 Comments Verbal cues, L LE SLS inc to 7 sec without UE use Standing Exercises calf stretches on FIDELIA Standing Exercise gastroc and soleus Name Side bilateral Reps/Minutes 60 sec each stretch each LE X 2 for 60 sec then X 10 step through each LE Comments Verbal cues Gait Training Gait Activity 4 wheeled walker Comments VC for inc heel strike with ambulation, and to lock brakes throughout session, verbal cues for posture Neuro Re-Education Treatment Balance Activities foam Details Romberg Reps/Duration 2 min Comments CGA with eyes closed, then eyes closed and head turns step up taps Details 6 inch step, standing on foam Reps/Duration X 10 Comments CGA SLS Details SLS Equipment CGA Tandem Details Tandem Stance Equipment // bars CGA hands above bars to use as needed Reps/Duration 10feet X 4 fwd X 2 retro Comments head turns with fwd tandem stepping Physical Therapy Assessment Goals Three Impairment Pt exhibits shuffling, festinating gait pattern upon initiation of gait Necktie Stitcher Goal (LTG) Pt to decrease tendency of shuffling gait to <30% of the time when initiating movement without verbal cues LTG Duration 02/19/25 Two Impairment DGI score (16/24) indicative of increased falls risk Short Term Goal (STG Pt to improve Coon Balance score by at least four ) points to 46/56 in order to exhibit a reduced falls risk STG Duration Met Half-Way Goal (LTG) Pt to improve DGI score by at least four points to 20/ 24 in order to exhibit a reduced falls risk LTG Duration 02/19/25 One Impairment Pt is not compliant with current home exercise program Short Term Goal (STG Pt to be compliant and independent with an appropriate ) HEP STG Duration 01/19/25 Assessment Summary Assessment SLS L LE increased post glut med activation. Shuffling pattern and flexed trunk posture with ambulation persists and increased verbal cues to lock 4 wheeled walker through out session. Physical Therapy Plan Frequency and Duration Frequency of 2x/Week Treatment Plan of Care Start 12/19/24 Date Plan of Care End 02/19/25 Date Next Visit Focus/Plan Next Note Type Treatment Note Next Visit Plan Recheck POC/PN next appt and if added more appts. POC: Balance challenges, strengthening
--- NOTE | 2025-01-04 16:43 | PT.OTN ---
Current Diagnoses (Idiopathic) normal pressure hydrocephalus (01/04/25) Physical Therapy Treatment Note PT OP: Balance, Vestibular, Neuro Start: 01/01/25 09:46 Freq: Status: Active Protocol: Document 01/04/25 14:19 AB (Rec: 01/04/25 16:29 AB [id number]) Out-Patient Physical Therapy Visit Information Visit Information Visit Type Treatment Note Visit Note Visit [email or web address] Access Code: [email or web address] Visit Start Time 14:37 Visit Stop Time 15:17 Visit Number 10 Number of SCHOOL LIBRARY MEDIA PROGRAM DIRECTOR Visits 2 Progress Note Due 01/18/25 OP-PT Subjective Patient Comments Patient Comments Patient reports he is not using his 4WW walked around the [employer] 4X today without the walker. SLS L and R LE 1 sec without UE use start of session, Pt ed /advised to use walker at all times. Therapeutic Exercises Sitting Exercises seated hip abd with band Resistance level 4 band Reps/Minutes one min X 1 Comments Verbal cues, Sit<->stand Sitting Exercise Sit<->stand with UE use Name Side bilateral Resistance level4 band above knees Reps/Minutes X 12 X 2 Comments VC to keep tension on band and to stand fully upright Hip Abduction Sitting Exercise Hip Abduction Name Side bilateral Resistance Lv 2 loop Toe taps Sitting Exercise Toe-taps Name Reps/Minutes X 12 Comments vc FOR 5 SEC HOLD Standing Exercises calf stretches on FIDELIA Standing Exercise gastroc and soleus Name Side bilateral Reps/Minutes 60 sec each stretch each LE X 2 for 60 sec then X 10 step through each LE Comments Verbal cues Monster/Side walks Standing Exercise Fwd/bwd, sideways Name Resistance L2 Equipment Used Parallel bars Reps/Minutes 10 ft X 3 fwd,bwd, L and R Comments VC and visual cues for stepping lateral and large and to avoid toeout side Neuro Re-Education Treatment Balance Activities foam Details Romberg, tandem Reps/Duration 3 min Comments CGA with eyes closed, then eyes closed and head turns with Romberg only step up taps Details 8 inch step, standing on foam Reps/Duration X 10 Comments CGA hands above bars Tandem Details Tandem Stance Equipment // bars CGA hands above bars to use as needed Reps/Duration 10feet X 3 fwd 3 retro Physical Therapy Assessment Goals Three Impairment Pt exhibits shuffling, festinating gait pattern upon initiation of gait Reception Interviewer Goal (LTG) Pt to decrease tendency of shuffling gait to <30% of the time when initiating movement without verbal cues LTG Duration 02/19/25 Two Impairment DGI score (16/24) indicative of increased falls risk Short Term Goal (STG Pt to improve Coon Balance score by at least four ) points to 46/56 in order to exhibit a reduced falls risk STG Duration Met Assisted Goal (LTG) Pt to improve DGI score by at least four points to 20/ 24 in order to exhibit a reduced falls risk LTG Duration 02/19/25 One Impairment Pt is not compliant with current home exercise program Short Term Goal (STG Pt to be compliant and independent with an appropriate ) HEP STG Duration 01/19/25 Assessment Summary Assessment Patient into session with reports of not using walker, Patient made aware SLS L and R LE only one sec start of session and he recently reported a fall at home IE this week; Patient advised strongly he should use 4WW at all times. Physical Therapy Plan Frequency and Duration Frequency of 2x/Week Treatment Plan of Care Start 12/19/24 Plan of Care End 02/19/25 Date Next Visit Focus/Plan Next Note Type Treatment Note Next Visit Plan POC: Balance challenges, strengthening
--- NOTE | 2025-01-11 16:13 | PT.OTN ---
Current Diagnoses (Idiopathic) normal pressure hydrocephalus (01/11/25) Physical Therapy Treatment Note PT OP: Balance, Vestibular, Neuro Start: 01/01/25 09:46 Freq: Status: Active Protocol: Document 01/11/25 15:19 AB (Rec: 01/11/25 16:13 AB [id number]) Out-Patient Physical Therapy Visit Information Visit Information Visit Type Treatment Note Visit Note Visit [email or web address] Access Code: [email or web address] Visit Start Time 15:32 Visit Stop Time 16:03 Visit Number 11 Number of SOLAR THERMAL TECHNICIAN Visits 3 Progress Note Due 01/18/25 OP-PT Subjective Patient Comments Patient Comments Patient late, comments he was hurrying so he didn't use the walker, ie into session with SPC. Patient reports he has the blue band at home, but he lost his papers Gym Equipment Shuttle Balance Red Details NBOS, Staggered Reps/Duration CGA 3 min Comments visual scanning and head turns Therapeutic Exercises Sitting Exercises seated hip abd with band Resistance level 4 band Reps/Minutes one min X 1 Comments Verbal cues, Sit<->stand Sitting Exercise Sit<->stand with UE use Name Side bilateral Resistance level4 band above knees Reps/Minutes X 10 Comments VC to keep tension on band and to stand fully upright Standing Exercises side stepping with band Side bilateral Resistance level 3 band Reps/Minutes L and R x 3 Comments with UE use, VC and visual cues to avoid toeing [id number] Neuro Re-Education Treatment Balance Activities step up taps Details 8 inch step, standing on foam Reps/Duration X 10 Comments CGA hands above bars hurdles Equipment 6 hurdles 10 feet hands above bars to use as needed Reps/Duration fwd X 6 lateral L and R X 2 Comments cues for tall posture, CGA to very minimal assist X 1 SLS Details SLS Equipment CGA Reps/Duration 1 min and 2 min Comments with and without 2 lb on ankles with and without head turns Tandem Details stepping with 2 lb on ankles Equipment // bars CGA hands above bars to use as needed Reps/Duration 10feet X 3 fwd 3 retro Physical Therapy Assessment Goals Three Impairment Pt exhibits shuffling, festinating gait pattern upon initiation of gait Nursing Home Goal (LTG) Pt to decrease tendency of shuffling gait to <30% of the time when initiating movement without verbal cues LTG Duration 02/19/25 Two Impairment DGI score (16/24) indicative of increased falls risk Short Term Goal (STG Pt to improve Coon Balance score by at least four ) points to 46/56 in order to exhibit a reduced falls risk STG Duration Met Nursing Home Goal (LTG) Pt to improve DGI score by at least four points to 20/ 24 in order to exhibit a reduced falls risk LTG Duration 02/19/25 One Impairment Pt is not compliant with current home exercise program Short Term Goal (STG Pt to be compliant and independent with an appropriate ) HEP STG Duration 01/19/25 Assessment Summary Assessment Patient into session with SPC reports he was running late, also reports he cannot find the papers for his exercises, but does have the blue band. Patient reports he did his sit to stand exercise today. Patient reports feeling good and ambulates out of session with less shuffling than start of session. Physical Therapy Plan Frequency and Duration Frequency of 2x/Week Treatment Plan of Care Start 12/19/24 Date Plan of Care End 02/19/25 Date Next Visit Focus/Plan Next Note Type Treatment Note Next Visit Plan POC: Balance challenges, strengthening
--- NOTE | 2025-01-18 16:13 | PT.OTN ---
Current Diagnoses (Idiopathic) normal pressure hydrocephalus (01/18/25) Physical Therapy Treatment Note PT OP: Balance, Vestibular, Neuro Start: 01/01/25 09:46 Freq: Status: Active Protocol: Document 01/18/25 15:20 AB (Rec: 01/18/25 16:13 AB [id number]) Out-Patient Physical Therapy Visit Information Visit Information Visit Type Treatment Note Visit Note Visit [email or web address] Access Code: [email or web address] Visit Start Time 15:21 Visit Stop Time 16:05 Visit Number 12 Number of FRICTION PAINT MACHINE TENDER Visits 4 Progress Note Due 01/18/25 OP-PT Subjective Patient Comments Patient Comments Patient reports he can take the trash out and wasn't able to 5 weeks ago. Patient comments he walks better and is stronger, but balance is not good. Patient reports doing his exercises 2X a week. SLS 2,2,1 sec L LE R LE 1,3,8 sec without UE use Patient reports he lost 10 Lb and has been advised to eat peanut butter, milkshakes and bananas. Functional Tests Dynamic Gait Index (DGI) Score 17 DGI Impairment 20 to <40% Impaired (Score 15-19) Rating Therapeutic Exercises Sitting Exercises Sit<->stand Sitting Exercise Sit<->stand with UE use Name Side bilateral Resistance level4 band above knees Reps/Minutes X 10 with band X 10 without band, VC to avoid sitting edge of chair. Comments VC to keep tension on band and to stand fully upright Toe taps Sitting Exercise Toe-taps Name Reps/Minutes X 12 Comments verbal cues added to HEP Standing Exercises calf stretches on FIDELIA Standing Exercise gastroc at wall HEP Name Side bilateral Reps/Minutes X 2 each LE Comments verbal cues Gait Training Gait Activity with and without device Comments close supervision without device, verbal cues to walk softly throughout session. Neuro Re-Education Treatment Balance Activities SLS Details SLS Equipment CGA Reps/Duration X 3 each LE Physical Therapy Assessment Goals Three Impairment Pt exhibits shuffling, festinating gait pattern upon initiation of gait Java Performance Engineer Goal (LTG) Pt to decrease tendency of shuffling gait to <30% of the time when initiating movement without verbal cues 01/18/2025 Shuffling persists ie is audible LTG Duration 02/19/25 Two Impairment DGI score () indicative of increased falls risk Short Term Goal (STG Pt to improve Coon Balance score by at least four ) points to 46/56 in order to exhibit a reduced falls risk STG Duration Met Java Performance Engineer Goal (LTG) Pt to improve DGI score by at least four points to 20/ 24 in order to exhibit a reduced falls risk 01/18/2025 17/24 not met LTG Duration 02/19/25 One Impairment Pt is not compliant with current home exercise program Short Term Goal (STG Pt to be compliant and independent with an appropriate ) HEP 01/18/2025 Patient reports performing HEP 2X a week. STG Duration 01/19/25 Assessment Summary Assessment Patient ambulates with minimal scuffing end of session, post verbal cues throughout session to walk soft, improved most after cues to listen to himself walk. Patient did not meet goals for physical therapy. Patient ed importance of HEP for improving balance. Physical Therapy Plan Frequency and Duration Frequency of 2x/Week Treatment Plan of Care Start 12/19/24 Date Plan of Care End 02/19/25 Date Therapeutic Interventions Therapeutic Balance Training,Gait Training,Home Exercise Program, Interventions Manual Therapy,Neuromuscular Re-education,Orthotic/ Prosthetic Management,Patient/Caregiver Education,Self- Care/Home Management,Soft Tissue Mobilization, Therapeutic Activities,Therapeutic Exercises,Vestibular Rehabilitation Next Visit Focus/Plan Next Note Type Treatment Note Next Visit Plan POC: Balance challenges, strengthening
--- NOTE | 2025-01-18 16:15 | PT.OPPN ---
Current Diagnoses (Idiopathic) normal pressure hydrocephalus (01/18/25) Physical Therapy Progress Note PT OP: Balance, Vestibular, Neuro Start: 01/01/25 09:46 Freq: Status: Active Protocol: Document 01/22/25 09:38 DCW (Rec: 01/22/25 09:41 DCW [id number]) Out-Patient Physical Therapy Visit Information Visit Information Visit Type Progress Note Physical Therapy Assessment Goals Three Impairment Pt exhibits shuffling, festinating gait pattern upon initiation of gait Global Upstream Marketing Manager Goal (LTG) Pt to decrease tendency of shuffling gait to <30% of the time when initiating movement without verbal cues 01/18/2025 Shuffling persists ie is audible LTG Duration 02/19/25 Two Impairment DGI score (16/24) indicative of increased falls risk Short Term Goal (STG Pt to improve Coon Balance score by at least four ) points to 46/56 in order to exhibit a reduced falls risk STG Duration Met Halfway Goal (LTG) Pt to improve DGI score by at least four points to 20/ 24 in order to exhibit a reduced falls risk 01/18/2025 17/24 not met LTG Duration 02/19/25 One Impairment Pt is not compliant with current home exercise program Short Term Goal (STG Pt to be compliant and independent with an appropriate ) HEP 01/18/2025 Patient reports performing HEP 2X a week. STG Duration 01/19/25 Assessment Summary Assessment Pt noting subjective improvements in balance and activity tolerance, however still exhibits a fairly consistent shuffling gait pattern and general loss of balance and stability during gait. Balance testing continues to suggest increased falls risk. Continue focus on gait, balance, and LE strengthening. Physical Therapy Plan Frequency and Duration Frequency of 2x/Week Treatment Plan of Care Start 12/19/24 Date Plan of Care End 02/19/25 Date Therapeutic Interventions Therapeutic Balance Training,Gait Training,Home Exercise Program, Interventions Manual Therapy,Neuromuscular Re-education,Orthotic/ Prosthetic Management,Patient/Caregiver Education,Self- Care/Home Management,Soft Tissue Mobilization, Therapeutic Activities,Therapeutic Exercises,Vestibular Rehabilitation Next Visit Focus/Plan Next Note Type Treatment Note Next Visit Plan POC: Balance challenges, strengthening
--- NOTE | 2025-01-22 16:02 | PT.OTN ---
Current Diagnoses (Idiopathic) normal pressure hydrocephalus (01/22/25) Physical Therapy Treatment Note PT OP: Balance, Vestibular, Neuro Start: 01/01/25 09:46 Freq: Status: Active Protocol: Document 01/22/25 15:15 DCW (Rec: 01/22/25 16:02 DCW [id number]) Out-Patient Physical Therapy Visit Information Visit Information Visit Type Treatment Note Visit Start Time 15:15 Visit Stop Time 16:00 Visit Number 13 Number of STRAP FOLDING MACHINE OPERATOR Visits 0 Progress Note Due 02/17/25 Evaluation Information Evaluation Date 10/26/24 OP-PT Subjective Patient Comments Patient Comments I feel like I'm walking better, but my balance is still an issue. Cardio Equipment Recumbent Elliptical (NuStep) Duration (Minutes) 5 Resistance 6 Seat Position 12 Other Focus on mamadou, increased strde length Gym Equipment Shuttle Recovery unilateral squat Details VC to slow down, Resistance 37 (one navy) Shuttle Recovery Stable Platform bilateral squat Details VC to slow down Resistance 87# (three navy) Shuttle Recovery Stable Platform Reps/Time 15 X 2 Shuttle Balance Red Details NBOS (EO/EC), Staggered Neuro Re-Education Treatment Balance Activities hurdles Equipment 6 hurdles Reps/Duration fwd x6 lateral x2 Comments cues for tall posture, CGA to very minimal assist X 1 SLS Details SLS Equipment CGA Reps/Duration x3 each LE Tandem Details Tandem Stance Equipment // bars Physical Therapy Assessment Impairments Impairments Activity Tolerance,Balance,Coordination,Functional Activities,Functional Mobility,Gait,Strength,Tone, Transfers Goals Three Impairment Pt exhibits shuffling, festinating gait pattern upon initiation of gait Shelter Goal (LTG) Pt to decrease tendency of shuffling gait to <30% of the time when initiating movement without verbal cues 01/18/2025 Shuffling persists ie is audible LTG Duration 02/19/25 Two Impairment DGI score (16/24) indicative of increased falls risk Short Term Goal (STG Pt to improve Coon Balance score by at least four ) points to 46/56 in order to exhibit a reduced falls risk STG Duration Met Insole Rounder Goal (LTG) Pt to improve DGI score by at least four points to 20/ 24 in order to exhibit a reduced falls risk 01/18/2025 17/24 not met LTG Duration 02/19/25 One Impairment Pt is not compliant with current home exercise program Short Term Goal (STG Pt to be compliant and independent with an appropriate ) HEP 01/18/2025 Patient reports performing HEP 2X a week. STG Duration 01/19/25 Assessment Summary Assessment Pt demonstrating improved LE strength, balance, and gait today. Able to SLS for a much longer time today. Cleared hurdles without catching foot 95% of the time. Tolerated very well. Continue to focus on gait, balance , and strength. Physical Therapy Plan Frequency and Duration Frequency of 2x/Week Treatment Plan of Care Start 12/19/24 Date Plan of Care End 02/19/25 Date Therapeutic Interventions Therapeutic Balance Training,Gait Training,Home Exercise Program, Interventions Manual Therapy,Neuromuscular Re-education,Orthotic/ Prosthetic Management,Patient/Caregiver Education,Self- Care/Home Management,Soft Tissue Mobilization, Therapeutic Activities,Therapeutic Exercises,Vestibular Rehabilitation Next Visit Focus/Plan Next Note Type Treatment Note Next Visit Plan POC: Balance challenges, strengthening
--- NOTE | 2025-01-25 16:08 | PT.OTN ---
Current Diagnoses (Idiopathic) normal pressure hydrocephalus (01/25/25) Physical Therapy Treatment Note PT OP: Balance, Vestibular, Neuro Start: 01/01/25 09:46 Freq: Status: Active Protocol: Document 01/25/25 15:18 AB (Rec: 01/25/25 16:07 AB [id number]) Out-Patient Physical Therapy Visit Information Visit Information Visit Type Treatment Note Visit Note Visit [email or web address] Access Code: [email or web address] Visit Start Time 15:18 Visit Stop Time 16:00 Visit Number 14 Number of PHOTOGRAPHIC COLORIST Visits 0 Progress Note Due 02/17/25 OP-PT Subjective Patient Comments Patient Comments Patient into session without walker, comments he was returning 's wheelchair and didn't have room in trunk, reports he isn't using walker much. Therapeutic Exercises Sitting Exercises seated hip abd with band Resistance level 4 band Reps/Minutes one min X 1 Comments Verbal cues, Sit<->stand Sitting Exercise Sit<->stand w/o UE use Min assist first rep then CGA Name Side bilateral Resistance level4 band above knees Reps/Minutes X 10 X 3 Comments VC to keep tension on band and to stand fully upright Toe taps Sitting Exercise Toe-taps Name Reps/Minutes X 15 then X 10 with level one band Comments verbal cues added to HEP Standing Exercises bilateral heel raise Standing Exercise on 4 inch step with UE use Name Reps/Minutes X 15 X 2 Comments verbal and visual cues side stepping with band Side bilateral Resistance level 3 band Reps/Minutes L and R x 3 Comments with UE use, VC and visual cues to avoid toeing [id number] calf stretches on FIDELIA Standing Exercise on FIDELIA Name Side bilateral Reps/Minutes X2 60 sec then step through X 10 with one LE on FIDELIA Comments Verbal cues to hold bar, verbal and visual cues for step through Neuro Re-Education Treatment Balance Activities foam Details Romberg, Reps/Duration 1-3 min Comments CGA with eyes closed, then eyes closed and head turns with Romberg only step up taps Details 8 inch step, standing on foam Reps/Duration X 10 Comments CGA hands above bars hurdles Equipment 6 hurdles Reps/Duration fwd x6 lateral x3 L and X 3 Comments cues for tall posture, CGA to very minimal assist X 1 Physical Therapy Assessment Goals Three Impairment Pt exhibits shuffling, festinating gait pattern upon initiation of gait Usp Goal (LTG) Pt to decrease tendency of shuffling gait to <30% of the time when initiating movement without verbal cues 01/18/2025 Shuffling persists ie is audible LTG Duration 02/19/25 Two Impairment DGI score (16/24) indicative of increased falls risk Short Term Goal (STG Pt to improve Coon Balance score by at least four ) points to 46/56 in order to exhibit a reduced falls risk STG Duration Met Pattern Grader Goal (LTG) Pt to improve DGI score by at least four points to 20/ 24 in order to exhibit a reduced falls risk 01/18/2025 17/24 not met LTG Duration 02/19/25 One Impairment Pt is not compliant with current home exercise program Short Term Goal (STG Pt to be compliant and independent with an appropriate ) HEP 01/18/2025 Patient reports performing HEP 2X a week. STG Duration 01/19/25 Assessment Summary Assessment Patient able to perform sit to stand without band, was unsteady on first rep ( min A ), but CGA for all other reps. Physical Therapy Plan Frequency and Duration Frequency of 2x/Week Treatment Plan of Care Start 12/19/24 Date Plan of Care End 02/19/25 Date Next Visit Focus/Plan Next Note Type Treatment Note Next Visit Plan POC: Balance challenges, strengthening
--- NOTE | 2025-01-29 11:36 | PT.OTN ---
Current Diagnoses (Idiopathic) normal pressure hydrocephalus (01/29/25) Physical Therapy Treatment Note PT OP: Balance, Vestibular, Neuro Start: 01/01/25 09:46 Freq: Status: Active Protocol: Document 01/29/25 10:45 DCW (Rec: 01/29/25 11:36 DCW [id number]) Out-Patient Physical Therapy Visit Information Visit Information Visit Type Treatment Note Visit Start Time 10:45 Visit Stop Time 11:30 Visit Number 15 Number of ELECTRICIAN SUBSTATION Visits 0 Progress Note Due 02/17/25 Evaluation Information Evaluation Date 10/26/24 OP-PT Subjective Patient Comments Patient Comments I'm doing some of those leg exercises at home, and they really tire me out. Cardio Equipment Recumbent Stepper (Sci-Fit) Duration (Minutes) 6 Resistance 3 Seat Position 14 Other VCs for mamadou, stride length Gym Equipment Shuttle Recovery Bilateral Heel Raises Resistance 50# (two navy) unilateral squat Details VCs for eccentric control Resistance 37 (one navy) Shuttle Recovery Stable Platform bilateral squat Details VCs for eccentric control Resistance 87# (three navy) Shuttle Recovery Stable Platform Shuttle Balance Red Details NBOS (EO/EC), Staggered Neuro Re-Education Treatment Balance Activities hurdles Details Hurdles Equipment 6 hurdles, 5# ankle weights Reps/Duration x6 each direction Comments Forward, Lateral Physical Therapy Assessment Impairments Impairments Activity Tolerance,Balance,Coordination,Functional Activities,Functional Mobility,Gait,Strength,Tone, Transfers Goals Three Impairment Pt exhibits shuffling, festinating gait pattern upon initiation of gait Trademark Paralegal Goal (LTG) Pt to decrease tendency of shuffling gait to <30% of the time when initiating movement without verbal cues 01/18/2025 Shuffling persists ie is audible LTG Duration 02/19/25 Two Impairment DGI score (16/24) indicative of increased falls risk Short Term Goal (STG Pt to improve Coon Balance score by at least four ) points to 46/56 in order to exhibit a reduced falls risk STG Duration Met Trademark Paralegal Goal (LTG) Pt to improve DGI score by at least four points to 20/ 24 in order to exhibit a reduced falls risk 01/18/2025 17/24 not met LTG Duration 02/19/25 One Impairment Pt is not compliant with current home exercise program Short Term Goal (STG Pt to be compliant and independent with an appropriate ) HEP 01/18/2025 Patient reports performing HEP 2X a week. STG Duration 01/19/25 Assessment Summary Assessment Pt quite fatigued today with activity, while doing hurdles suddenly felt a little dizzy and had to rest and recover, but then felt fine. Continue to work on balance, activity tolerance, and gait. Physical Therapy Plan Frequency and Duration Frequency of 2x/Week Treatment Plan of Care Start 12/19/24 Date Plan of Care End 02/19/25 Date Therapeutic Interventions Therapeutic Balance Training,Gait Training,Home Exercise Program, Interventions Manual Therapy,Neuromuscular Re-education,Orthotic/ Prosthetic Management,Patient/Caregiver Education,Self- Care/Home Management,Soft Tissue Mobilization, Therapeutic Activities,Therapeutic Exercises,Vestibular Rehabilitation Next Visit Focus/Plan Next Note Type Treatment Note Next Visit Plan POC: Balance challenges, strengthening
--- NOTE | 2025-02-01 10:37 | PT.OTN ---
Current Diagnoses (Idiopathic) normal pressure hydrocephalus (02/01/25) Physical Therapy Treatment Note PT OP: Balance, Vestibular, Neuro Start: 01/01/25 09:46 Freq: Status: Active Protocol: Document 02/01/25 09:48 AB (Rec: 02/01/25 10:37 AB [id number]) Out-Patient Physical Therapy Visit Information Visit Information Visit Type Treatment Note Visit Note Visit [email or web address] Access Code: [email or web address] Visit Start Time 09:48 Visit Stop Time 10:30 Visit Number 16 Number of LOAN CLOSER Visits 1 Progress Note Due 02/17/25 OP-PT Subjective Patient Comments Patient Comments Patient reports he is a little wobblier today. Patient reports walked this morning. Patient reports he did his exercises Tuesday, missed yesterday, was here Tuesday: comments he misses sometimes. L LE 2 sec R LE 4 sec without UE use CGA start of session Therapeutic Exercises Sitting Exercises seated hip abd with band Resistance level 4 band Reps/Minutes one min X 1 Comments with inc SLS post, pt ed importance of this ex to improve balance Sit<->stand Sitting Exercise Sit<->stand w/o UE use Min assist first rep then CGA Name Side bilateral Resistance level2 band above knees Reps/Minutes X 20 Comments HEP review VC for fully upright Hip Abduction Side bilateral Resistance level 3 band Reps/Minutes X 15 Comments review HEP Heel Raises Side bilateral Resistance Level 3 band Reps/Minutes X 15 Comments HEP review Marching Side bilateral Resistance level 3 band Reps/Minutes X 15 Comments HEP review Toe taps Sitting Exercise Toe-taps Name Reps/Minutes X 15 then Comments verbal cues added to HEP Standing Exercises wall plank Standing Exercise * not added to HEP reports no sensation of stretch in Name calf muscles Reps/Minutes X 20 and X 15 Comments Patient initiated requesting to perform calf stretch B* calf stretches on FIDELIA Standing Exercise on FIDELIA Name Reps/Minutes X2 60 sec then step through X 10 with one LE on FIDELIA Comments Due to continued limitations, dec DF swing phase during ambulation. Neuro Re-Education Treatment Balance Activities hurdles Equipment 6 hurdles, 5# ankle weights Reps/Duration X 4 w/o weight X2 with weights Comments fwd, CGA to min assist Physical Therapy Assessment Goals Three Impairment Pt exhibits shuffling, festinating gait pattern upon initiation of gait Detention Goal (LTG) Pt to decrease tendency of shuffling gait to <30% of the time when initiating movement without verbal cues 01/18/2025 Shuffling persists ie is audible LTG Duration 02/19/25 Two Impairment DGI score (16/24) indicative of increased falls risk Short Term Goal (STG Pt to improve Coon Balance score by at least four ) points to 46/56 in order to exhibit a reduced falls risk STG Duration Met Detention Goal (LTG) Pt to improve DGI score by at least four points to 20/ 24 in order to exhibit a reduced falls risk 01/18/2025 17/24 not met LTG Duration 02/19/25 One Impairment Pt is not compliant with current home exercise program Short Term Goal (STG Pt to be compliant and independent with an appropriate ) HEP 01/18/2025 Patient reports performing HEP 2X a week. STG Duration 01/19/25 Assessment Summary Assessment Patient ed throughout session importance of HEP exercises to improve balance/balance reactions, gait pattern. SLS continues to be very limited start of session with increase R>L post glute med activation. Physical Therapy Plan Frequency and Duration Frequency of 2x/Week Treatment Plan of Care Start 12/19/24 Date Plan of Care End 02/19/25 Date Next Visit Focus/Plan Next Note Type Treatment Note Next Visit Plan POC: Balance challenges, strengthening
--- NOTE | 2025-02-05 11:46 | PT.OTN ---
Current Diagnoses (Idiopathic) normal pressure hydrocephalus (02/05/25) Physical Therapy Treatment Note PT OP: Balance, Vestibular, Neuro Start: 01/01/25 09:46 Freq: Status: Active Protocol: Document 02/05/25 10:43 AB (Rec: 02/05/25 11:45 AB [id number]) Out-Patient Physical Therapy Visit Information Visit Information Visit Type Treatment Note Visit Note Visit [email or web address] Access Code: [email or web address] Visit Start Time 10:47 Visit Stop Time 11:33 Visit Number 17 Number of SADDLE MECHANIC Visits 2 Progress Note Due 02/17/25 OP-PT Subjective Patient Comments Patient Comments Patient into session with handout for sit to stand with band commenting the band is falling down when he does this and wants to know what this exercise is about 9 Sec R L sec 1 sec Gym Equipment Shuttle Balance Red Details NBOS (head turns), Staggered Comments CGA Therapeutic Exercises Sitting Exercises seated hip abd with band Side bilateral Resistance level 4 band Reps/Minutes one min X 1 Comments 9 + sec L LE post glute med activation Sit<->stand Sitting Exercise without UE use Name Side bilateral Resistance level 4 band Reps/Minutes 3X10 Comments VC to avoid scooting to edge of chair, review of tying band pt request Toe taps Sitting Exercise Toe-taps REview as per patient request Name Reps/Minutes X 15 then Comments verbal cues Standing Exercises calf stretches on FIDELIA Standing Exercise on FIDELIA Name Reps/Minutes X2 60 sec then step through X 10 with one LE on FIDELIA Comments Due to continued limitations, dec DF swing phase during ambulation. Neuro Re-Education Treatment Balance Activities wall fall Details pillow behind back CGA Reps/Duration X 10 X 2 foam Details Romberg, Reps/Duration 1-3 min Comments CGA with eyes closed, then eyes closed and head turns with Romberg only step up taps Details 8 inch step, standing on foam Reps/Duration X 10 Comments CGA hands above bars hurdles Equipment 6 hurdles, Reps/Duration X 2 w/o weight this session end of session Comments fwd, CGA to min assist SLS Details SLS Equipment CGA Reps/Duration x2-3 each LE X 2 Tandem Details Tandem stepping fwd and retro Equipment // bars Reps/Duration cga hands above bars Physical Therapy Assessment Goals Three Impairment Pt exhibits shuffling, festinating gait pattern upon initiation of gait Poiser Goal (LTG) Pt to decrease tendency of shuffling gait to <30% of the time when initiating movement without verbal cues 01/18/2025 Shuffling persists ie is audible LTG Duration 02/19/25 Two Impairment DGI score (16/24) indicative of increased falls risk Short Term Goal (STG Pt to improve Coon Balance score by at least four ) points to 46/56 in order to exhibit a reduced falls risk STG Duration Met Poiser Goal (LTG) Pt to improve DGI score by at least four points to 20/ 24 in order to exhibit a reduced falls risk 01/18/2025 17/24 not met LTG Duration 02/19/25 One Impairment Pt is not compliant with current home exercise program Short Term Goal (STG Pt to be compliant and independent with an appropriate ) HEP 01/18/2025 Patient reports performing HEP 2X a week. STG Duration 01/19/25 Assessment Summary Assessment Patient into session with questions regarding HEP, which indicates patient is putting more effort into performing HEP at home. SLS continues to be very limited L LE start of session, with L LE one sec without UE use, but does inc to 9+ seconds post glute med activation. Physical Therapy Plan Frequency and Duration Frequency of 2x/Week Treatment Plan of Care Start 12/19/24 Date Plan of Care End 02/19/25 Date Next Visit Focus/Plan Next Note Type Treatment Note Next Visit Plan POC: Balance challenges, strengthening
--- NOTE | 2025-02-08 10:43 | PT.OTN ---
Current Diagnoses (Idiopathic) normal pressure hydrocephalus (02/08/25) Physical Therapy Treatment Note PT OP: Balance, Vestibular, Neuro Start: 01/01/25 09:46 Freq: Status: Active Protocol: Document 02/08/25 09:50 AB (Rec: 02/08/25 10:43 AB [id number]) Out-Patient Physical Therapy Visit Information Visit Information Visit Type Treatment Note Visit Note Visit [email or web address] Access Code: [email or web address] Visit Start Time 09:50 Visit Stop Time 10:38 Visit Number 18 Number of TUNNEL DRIER OPERATOR Visits 3 Progress Note Due 02/17/25 OP-PT Subjective Patient Comments Patient Comments Patient reports he had a Covid shot and he felt like he got Covid Tuesday. Pt into session with 4WW with no shuffling initially, but shuffling noted post first ~20 feet. Therapeutic Exercises Sitting Exercises Toe taps Sitting Exercise Toe-taps REview as per patient request Name Reps/Minutes X 15 then X 15 with level one band Comments verbal cues post calf stretche Standing Exercises step ups Side bilateral Resistance 6 inch step Reps/Minutes X 10 with UE use Comments vc to fully step up glute med isometric Reps/Minutes one minute each side Comments verbal and visual calf stretches on FIDELIA Standing Exercise on FIDELIA Name Reps/Minutes X2 60 sec then step through X 10 with one LE on FIDELIA Comments Due to continued limitations, dec DF swing phase during ambulation. Neuro Re-Education Treatment Balance Activities step up taps Details 6 inch step, standing on foam Reps/Duration X 10 Comments CGA hands above bars hurdles Equipment 6 hurdles, Reps/Duration X 3 w/o weight X 1 then with 5 lb Comments fwd, CGA hands above bars Tandem Details Tandem stepping fwd and retro Equipment // bars 10 feet X 3 fwd X 3 retro Reps/Duration cga hands above bars Physical Therapy Assessment Goals Three Impairment Pt exhibits shuffling, festinating gait pattern upon initiation of gait Alf Goal (LTG) Pt to decrease tendency of shuffling gait to <30% of the time when initiating movement without verbal cues 01/18/2025 Shuffling persists ie is audible LTG Duration 02/19/25 Two Impairment DGI score (16/24) indicative of increased falls risk Short Term Goal (STG Pt to improve Coon Balance score by at least four ) points to 46/56 in order to exhibit a reduced falls risk STG Duration Met Alf Goal (LTG) Pt to improve DGI score by at least four points to 20/ 24 in order to exhibit a reduced falls risk 01/18/2025 17/24 not met LTG Duration 02/19/25 One Impairment Pt is not compliant with current home exercise program Short Term Goal (STG Pt to be compliant and independent with an appropriate ) HEP 01/18/2025 Patient reports performing HEP 2X a week. STG Duration 01/19/25 Assessment Summary Assessment Patient required less physical assist with hurdles this session. Good morris to one minute hold for glute med isometric standing at wall. Physical Therapy Plan Frequency and Duration Frequency of 2x/Week Treatment Plan of Care Start 12/19/24 Date Plan of Care End 02/19/25 Date Next Visit Focus/Plan Next Note Type Treatment Note Next Visit Plan POC: Balance challenges, strengthening
--- NOTE | 2025-02-13 12:26 | PT.OTN ---
Current Diagnoses (Idiopathic) normal pressure hydrocephalus (02/13/25) Physical Therapy Treatment Note PT OP: Balance, Vestibular, Neuro Start: 01/01/25 09:46 Freq: Status: Active Protocol: Document 02/13/25 11:35 AB (Rec: 02/13/25 12:26 AB [id number]) Out-Patient Physical Therapy Visit Information Visit Information Visit Type Treatment Note Visit Note Visit [email or web address] Access Code: [email or web address] Visit Start Time 11:35 Visit Stop Time 12:22 Visit Number 19 Number of WHITE KID BUFFER Visits 4 Progress Note Due 02/17/25 OP-PT Subjective Patient Comments Patient Comments Patient reports he did the exercises yesterday, not over the weekend due to Daughter's celebration of life in [place] and having house guests. Gym Equipment Shuttle Recovery unilateral squat Details VCs for eccentric control Resistance 50 (one navy) Shuttle Recovery Stable Platform Reps/Time verbal cues to lower slowly bilateral squat Details VCs for eccentric control Resistance 87# (three navy) X 4 then X 11 for 75# then another 20 5# Shuttle Recovery Stable Platform Reps/Time weight dec to due new bands on machine Shuttle Balance Red Details NBOS (head turns), Staggered Comments CGA Therapeutic Exercises Standing Exercises step ups Side bilateral Resistance 6 inch step Reps/Minutes X 10 with UE use Comments vc to fully step up glute med isometric Reps/Minutes one minute each side Comments verbal and visual bilateral heel raise Standing Exercise on 4 inch step with UE use Name Reps/Minutes X 15 X 2 Comments verbal and visual cues calf stretches on FIDELIA Standing Exercise on FIDELIA Name Reps/Minutes X2 60 sec then step through X 10 with one LE on FIDELIA Comments Due to continued limitations, dec DF swing phase during ambulation. Neuro Re-Education Treatment Balance Activities foam Details Romberg with head turns and SLS X 10 Reps/Duration 3 min Comments CGA with eyes closed, then eyes closed and head turns with Romberg only step up taps Details 6 inch step, standing on foam Reps/Duration X 10 Comments CGA hands above bars SLS Details SLS Equipment CGA Reps/Duration x2-3 each LE X 2 on floor Physical Therapy Assessment Goals Three Impairment Pt exhibits shuffling, festinating gait pattern upon initiation of gait Urban Planning Teacher Goal (LTG) Pt to decrease tendency of shuffling gait to <30% of the time when initiating movement without verbal cues 01/18/2025 Shuffling persists ie is audible LTG Duration 02/19/25 Two Impairment DGI score (16/24) indicative of increased falls risk Short Term Goal (STG Pt to improve Coon Balance score by at least four ) points to 46/56 in order to exhibit a reduced falls risk STG Duration Met Urban Planning Teacher Goal (LTG) Pt to improve DGI score by at least four points to 20/ 24 in order to exhibit a reduced falls risk 01/18/2025 17/24 not met LTG Duration 02/19/25 One Impairment Pt is not compliant with current home exercise program Short Term Goal (STG Pt to be compliant and independent with an appropriate ) HEP 01/18/2025 Patient reports performing HEP 2X a week. STG Duration 01/19/25 Assessment Summary Assessment Continued use of VC for glute med isometric at wall. SLS continues to increase post glute med activation. Physical Therapy Plan Frequency and Duration Frequency of 2x/Week Treatment Plan of Care Start 12/19/24 Date Plan of Care End 02/19/25 Date Next Visit Focus/Plan Next Note Type Treatment Note Next Visit Plan POC: Balance challenges, strengthening
--- NOTE | 2025-02-19 12:13 | PT.OPDS ---
Current Diagnoses (Idiopathic) normal pressure hydrocephalus (02/19/25) Visit Care Team Role Provider Type Donnell Mascorro MD Family Provider Physician Primary Care Provider Specialty: Internal Medicine Address: [address] [place] [address], [id number] Email: [email or web address] Camp Attending Provider Non-Staff Referring Provider Specialty: Neurosurgery Address: [address] [place] [address], [place], [address] Email: Visit Number Visit Number 20 Discharge Summary PT OP: Balance, Vestibular, Neuro Start: 01/01/25 09:46 Freq: Status: Active Protocol: Document 02/19/25 11:35 DCW (Rec: 02/19/25 12:13 DCW [id number]) Out-Patient Physical Therapy Visit Information Visit Information Visit Type Discharge Summary Visit Start Time 11:35 Visit Stop Time 12:15 Visit Number 20 Number of GRIEVANCE AND APPEALS SPECIALIST Visits 0 Progress Note Due 02/17/25 Evaluation Information Evaluation Date 10/26/24 OP-PT Subjective Patient Comments Patient Comments Everyone who sees me seems to agree that I'm doing better. Coon Balance Assessment Evaluation Sitting to Standing Independent w/out Hands Ability Unsupported Stance Safely- 2 minutes Sitting Unsupported, Safely- 2 minutes Feet on Floor Standing to Sitting Safely, Minimal Hand Use Ability Transfer Ability Safely, Minimal Hand Use Unsupported Stance- Safely, 10 seconds Eyes Closed Unsupported Stance- Independent, 1 minute Eyes Open Reaching Forward Confidently, 10 inches Standing Pick- Up Object From Independent/Safe Floor Look Behind Shoulder Shifts Weight Well - Standing Turning 360 Degrees Turns , < 4 secs Unsupported Stance, (I)- 8 Steps in > 20 secs Alternating Feet on Stair Unsupported Tandem Holds Tandem- 30 seconds Stance Unilateral Leg Lifts Leg/Holds 5-10 secs Stance Total Score Coon Total Score ( 52 out of 56 points) Coon Impairment 1 to 19% Impaired (Score 45-55) Rating Functional Tests Dynamic Gait Index (DGI) Score 22/24 DGI Impairment 1 to <20% Impaired (Score 20-23) Rating Timed Up and Go (TUG) Score 10.6 Comments Three-trial average (10.62, 11.24, 9.91) Physical Therapy Assessment Goals Three Impairment Pt exhibits shuffling, festinating gait pattern upon initiation of gait Drawing Kiln Operator Goal (LTG) Pt to decrease tendency of shuffling gait to <30% of the time when initiating movement without verbal cues 01/18/2025 Shuffling persists ie is audible LTG Duration 02/19/25 Two Impairment DGI score (16/24) indicative of increased falls risk Short Term Goal (STG Pt to improve Coon Balance score by at least four ) points to 46/56 in order to exhibit a reduced falls risk 02/19/25: 52/56 STG Duration Met Correction Goal (LTG) Pt to improve DGI score by at least four points to 20/ 24 in order to exhibit a reduced falls risk 01/18/25: 17 not met 02/19/25: 22/ LTG Duration Met One Impairment Pt is not compliant with current home exercise program Short Term Goal (STG Pt to be compliant and independent with an appropriate ) HEP 01/18/2025 Patient reports performing HEP 2X a week. STG Duration Met Assessment Summary Assessment Pt has met majority of goals, is doing much better with gait and balance. Minimal scuffing of feet most of the time, but still needs occasional cueing. Pt balance testing significantly improved, Coon, TUG, and DGI no longer suggestive of increased falls risk. Pt appropriate for discharge at this time. Physical Therapy Plan Frequency and Duration Frequency of 2x/Week Treatment Plan of Care Start 12/19/24 Date Plan of Care End 02/19/25 Date Next Visit Focus/Plan Next Note Type Treatment Note Next Visit Plan POC: Balance challenges, strengthening
== END 2025-04-11 09:37 | disposition home or self-care (01) ==
LOC: PHYS 11:30
PROVIDERS: Family Provider Internal Medicine; PCP Internal Medicine; Referring Provider Nurse Practitioner Adult Health; Visit Provider Nurse Practitioner Adult Health
DX: G91.2 (Idiopathic) normal pressure hydrocephalus (principal)
CPT/HCPCS: 97110; 97112; 97116; 97163; 97530